=== PATIENT | female | born 1975 | race Caucasian/White ===

== ENCOUNTER 2016-05-22 17:52 | Inpatient (IN) ==
[2016-05-22] MEDS ORDERED: *HR* Dextrose 50 % in Water (Syg) 50 ML SYRINGE ONE (18:00)
[2016-05-22] MEDS ORDERED: *HR* Dextrose 50 % in Water (Syg) 50 ML SYRINGE IVP ONE (18:07)
--- NOTE | 2016-05-22 18:11 | Emergency Department Note ---
Disposition Clinical Impression: Hypoglycemia, Pneumonitis Altered mental status Qualifiers: Altered mental status type: unspecified Qualified Code(s): R41.82 - Altered mental status, unspecified Disposition: Admitted As Inpatient Condition: Good Time of Disposition: 19:27 Altered Mental Status HPI - General Chief Complaint: ED Altered Mental Status Stated Complaint: unresponsive Time Seen by Provider: 05/22/16 17:55 Source: EMS Mode of arrival: ambulatory Limitations: no limitations Nursing Notes Reviewed: Yes Vital Signs Reviewed: Yes - History of Present Illness HPI Narrative: 41-year-old female with history of diabetes, pernicious anemia, chronic kidney disease presents unresponsive from home with glucose that read "high" per EMS. EMS was unable to obtain access. Patient's states that she has been ill for the last few days and when he returned home from work he was unable to awaken her. He states that her illness included nausea without vomiting as well as diarrhea. She has not had much of an appetite over the last few days if her sugar has been running low. She has an insulin pump. She has not had any recent cough or cold symptoms, chest pain, fevers, rashes or edema. No recent antibiotic use. - Related Data Home Medications Medication Instructions Recorded Confirmed Rifaximin [Xifaxan] 550 mg PO TID 12/21/15 04/26/16 Alprazolam [Xanax 0.5 MG Tablet] 0.5 mg PO TID 05/22/16 05/22/16 Cyanocobalamin (B-12) [Vitamin B12] 1,000 mcg IM Q2W 05/22/16 Diltiazem CD (24hr) [Cardizem CD] 240 mg PO DAILY 05/22/16 Folic Acid mg PO DAILY 05/22/16 Hydrocodone/Acetaminophen [Kaleva 1 - 2 tab PO Q4-6H PRN 05/22/16 05/22/16 5-325 Tablet] Insulin LISPRO [HumaLOG] 0 unit SQ AD PRN 05/22/16 05/22/16 Lipase/Protease/Amylase [Faviola Haile 3 each PO TIDWM 05/22/16 6,000 Units Capsule] SUMAtriptan Succinate [Imitrex] 100 mg PO DAILY PRN 05/22/16 Previous Rx's Medication Instructions Recorded Amlodipine [Norvasc] 10 mg PO DAILY #30 tablet 12/24/15 CloNIDine HCl 0.3 mg PO TID #90 tablet 12/24/15 Ergocalciferol (VITAMIN D2) 50,000 unit PO QWEEK #12 capsule 12/24/15 [Drisdol (50,000 Unit)] Furosemide [Lasix] 20 mg PO BID tablet 12/24/15 HydrALAZINE 50 mg PO Q8HR #90 tablet 12/24/15 Levothyroxine [Synthroid] 100 mcg PO 0630 tablet 12/24/15 Allergies Allergy/AdvReac Type Severity Reaction Status Date / Time cephalexin [From Keflex] Allergy Hives Verified 03/19/16 11:11 ciprofloxacin [From Cipro] Allergy Hives Verified 03/19/16 11:11 levofloxacin [From Levaquin] Allergy Difficulty Verified 03/19/16 11:11 Breathing ofloxacin Allergy Rash Verified 03/19/16 11:11 penicillin V Allergy Hives Verified 03/19/16 11:11 sulfamethoxazole Allergy Hives Verified 03/19/16 11:11 [From Bactrim] trimethoprim [From Bactrim] Allergy Hives Verified 03/19/16 11:11 All systems ED: reviewed and negative except as stated. Past Medical History - Past Medical History Attestation: Yes The following information was validated with the patient. 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 mucous membranes moist - Neck Neck exam: Present: normal inspection, full ROM, trachea midline - Chest Chest inspection: Present: normal inspection, symmetric chest wall rise - Respiratory Initially poor respiratory effort and diffuse rhonchi. Cardiovascular Cardiovascular exam: Present: regular rate, normal rhythm, normal heart sounds - Abdominal Exam Abdominal exam: Present: soft, Non-Tender. Absent: tenderness, distention, guarding, rebound, rigidity - Extremities Exam Extremities exam: Present: normal inspection, full ROM - Back Exam Back exam: Present: normal inspection, full ROM. Absent: tenderness, CVA tenderness (R), CVA tenderness (L) - Neurological Exam Patient groans to painful stimulus. After dextrose and menstruation, patient is somnolent but arousable and answers questions although is somewhat confused. - Psychiatric Psychiatric exam: Present: normal affect, normal mood - Skin Diaphoresis and pallor - General Limitations: no limitations General appearance: in distress Course - Reevaluation(s) Reevaluation #1: Our accucheck read 40. Patient had right tibial IO placed by Dr. Oviedo for inability to obtain IV access. Insulin pump removed. The patient received IV dextrose through this as well as IM glucagon in the right deltoid after this, patient awakened. Her pulse ox was 82% on oxygen by nasal cannula so he placed her on a Ventimask. Time: 18:30 Reevaluation #2: Patient is stable and now answers questions appropriately. Anemia and renal dysfunction are stable. EKG is nonischemic. Chest x-ray shows pneumonitis. Hospitalist was paged. Time: 19:26 Reevaluation #3: Accepted by Dr. Johnson Time: 19:35 Vital Signs Temperature 98.8 F 05/22/16 17:54 Pulse Rate 90 05/22/16 17:54 Respiratory Rate 16 05/22/16 17:54 Blood Pressure 158/88 05/22/16 17:54 O2 Sat by Pulse Oximetry 85 L 05/22/16 17:54 Temperature 98.8 F 05/22/16 17:54 Pulse Rate 61 05/22/16 18:52 Respiratory Rate 18 05/22/16 18:52 Blood Pressure 135/89 05/22/16 18:52 O2 Sat by Pulse Oximetry 96 05/22/16 18:52 Oxygen Delivery Oxygen Delivery High Flow Nasal Cannula Altered Mental Status - Lab Data Result diagrams: 05/22/16 18:18 05/22/16 18:18 Lab Results 05/22/16 05/22/16 05/22/16 Range/Units 17:56 18:18 18:18 WBC 3.0 L (4.3-11.1) K/mcL RBC 2.44 L (3.82-4.97) M/mcL Hgb 8.0 L (11.5-15.4) g/dL Hct 22.9 L (35.3-44.9) % MCV 93.9 (83.0-100.0) fL MCH 32.8 (28.0-33.3) pg MCHC 34.9 (31.6-35.5) g/dL RDW 14.6 H (11.5-14.5) % Plt Count 103 L (140-400) K/mcL MPV 10.1 (9.4-12.4) fL Immature Gran % 0.3 (0-4) % Seg Neutrophils % 71.1 % Lymphocytes % 23.3 % Monocytes % 4.3 % Eosinophils % 0.7 % Basophils % 0.3 % Neutrophils # 2.1 (1.6-8.9) K/mcL Lymphocytes # 0.7 (0.6-4.6) K/mcL Monocytes # 0.1 (0.0-1.3) K/mcL Eosinophils # 0.0 (0.0-0.6) K/mcL Basophils # 0.0 (0.0-0.2) K/mcL VBG pH (7.32-7.42) pH Units VBG pCO2 (41-51) mmHg VBG pO2 (25-40) mmHg VBG HCO3 (21-27) mEq/L Sodium 135 L (136-145) mEq/L Potassium 3.5 (3.5-4.5) mEq/L Chloride 107 (98-109) mEq/L Carbon Dioxide 19 (19-29) mEq/L BUN 51 H (7-20) mg/dL Creatinine 2.12 H (0.57-1.11) mg/dL Est GFR ( Amer) 31 L (> 60) Est GFR (Non-Af Amer) 26 L (> 60) BUN/Creatinine Ratio 24 (6-26) Glucose 162 H (70-99) mg/dL POC Glucose 41 L* (58-89) Calculated Osmolality 297 (280-300) Calcium 6.9 L (8.6-10.8) mg/dL Serum , Qual (Negative) Urine Color (Yellow) Urine Clarity (Clear) Urine pH (5.0-8.0) pH Units Ur Specific [place] (1.010-1.025) Urine Protein (Neg-Trace) mg/dL Urine Glucose (UA) (Normal) mg/dL Urine Ketones (Negative) mg/dL Urine Blood (Negative) Urine Nitrite (Negative) Urine Bilirubin (Negative) Urine Urobilinogen (Normal) mg/dL Ur Leukocyte Esterase (Negative) Urine Microscopic RBC (0-3) per hpf Urine Microscopic WBC (0-3) per hpf Ur Squamous Epith Cells (None-Few) per lpf Urine Bacteria (None-Few) per hpf Hyaline Casts (None-Few) per lpf Ur Culture Indicated? (NO) 05/22/16 05/22/16 05/22/16 Range/Units 18:18 18:18 18:45 WBC (4.3-11.1) K/mcL RBC (3.82-4.97) M/mcL Hgb (11.5-15.4) g/dL Hct (35.3-44.9) % MCV (83.0-100.0) fL MCH (28.0-33.3) pg MCHC (31.6-35.5) g/dL RDW (11.5-14.5) % Plt Count (140-400) K/mcL MPV (9.4-12.4) fL Immature Gran % (0-4) % Seg Neutrophils % % Lymphocytes % % Monocytes % % Eosinophils % % Basophils % % Neutrophils # (1.6-8.9) K/mcL Lymphocytes # (0.6-4.6) K/mcL Monocytes # (0.0-1.3) K/mcL Eosinophils # (0.0-0.6) K/mcL Basophils # (0.0-0.2) K/mcL VBG pH 7.30 L (7.32-7.42) pH Units VBG pCO2 43 (41-51) mmHg VBG pO2 94 H (25-40) mmHg VBG HCO3 21.2 (21-27) mEq/L Sodium (136-145) mEq/L Potassium (3.5-4.5) mEq/L Chloride (98-109) mEq/L Carbon Dioxide (19-29) mEq/L BUN (7-20) mg/dL Creatinine (0.57-1.11) mg/dL Est GFR ( Amer) (> 60) Est GFR (Non-Af Amer) (> 60) BUN/Creatinine Ratio (6-26) Glucose (70-99) mg/dL POC Glucose (58-89) Calculated Osmolality (280-300) Calcium (8.6-10.8) mg/dL Serum , Qual Negative (Negative) Urine Color Yellow (Yellow) Urine Clarity Cloudy A (Clear) Urine pH 5.0 (5.0-8.0) pH Units Ur Specific [place] 1.010 (1.010-1.025) Urine Protein 100 H (Neg-Trace) mg/dL Urine Glucose (UA) Normal (Normal) mg/dL Urine Ketones Negative (Negative) mg/dL Urine Blood Negative (Negative) Urine Nitrite Negative (Negative) Urine Bilirubin Negative (Negative) Urine Urobilinogen Normal (Normal) mg/dL Ur Leukocyte Esterase Negative (Negative) Urine Microscopic RBC 0-3 (0-3) per hpf Urine Microscopic WBC 0-3 (0-3) per hpf Ur Squamous Epith Cells Many H (None-Few) per lpf Urine Bacteria None Seen (None-Few) per hpf Hyaline Casts None Seen (None-Few) per lpf Ur Culture Indicated? NO (NO) - Radiology Data Radiology results reviewed: Yes I reviewed the patient's radiology results. - EKG Data EKG attestation: Yes I reviewed and interpreted this EKG. EKG results narrative: Normal sinus rhythm at 69 with normal axis and prolonged QTc at 482. Normal ST segments. No change other than elongated QTc from 03/19/2016. Attestation Statement - Attestation Attestation: I examined this patient and my medical decision-making was reviewed with the [employer] OPERATOR HELPER/PA/Advanced Practice Nurse/Resident Physician. I agree with the documented findings, disposition and treatment plan as described except to the extent set forth below. Patient emergency department with altered mental status. Family called 911 because she was poorly responsive. Per EMS her blood sugar read high. On arrival here she is diaphoretic. Poorly responsive. Gurgling breath sounds. Rhonchi on lung exam. Plan. Bedside glucose was 41. Difficult time obtaining IV access. I was placed in the right tib-fib. She received IM glucagon prior to the IV being placed. She received D50 through the right eye O. Upon his arrival he states that the patient has a port. There was access and IO was pulled. Patient is hypoxic. Candy was suctioned from her airway. Satting 85% on 2 L. Likely aspirated. Patient will be admitted. Patient feeling better. Awake alert and appropriate. Still requiring O2 to keep her sats above 90%. Admitted for aspiration pneumonitis. IV hydration for her worsening chronic renal insufficiency. 35 minutes of critical care exclusive of separately billable procedures.
[2016-05-22 18:27] LABS: Basophils % 0.3 %; Eosinophils % 0.7 %; Hematocrit 22.9 % (35.3-44.9); Immature Granulocytes % 0.3 % (0-4); Lymphocytes # 0.7 K/mcL (0.6-4.6); Lymphocytes % 23.3 %; Mean Corpuscular HGB Conc 34.9 g/dL (31.6-35.5); Mean Corpuscular Hemoglobin 32.8 pg (28.0-33.3); Mean Corpuscular Volume 93.9 fL (83.0-100.0); Mean Platelet Volume 10.1 fL (9.4-12.4); Monocytes # 0.1 K/mcL (0.0-1.3); Monocytes % 4.3 %; Neutrophils # 2.1 K/mcL (1.6-8.9); Platelet Count 103 K/mcL (140-400); Red Blood Count 2.44 M/mcL (3.82-4.97); Red Cell Distribution Width 14.6 % (11.5-14.5); Segmented Neutrophils % 71.1 %
[2016-05-22 18:30] LABS: VBG HCO3 21.2 mEq/L (21-27); VBG PH 7.3 pH Units (7.32-7.42)
[2016-05-22 18:38] LABS: Calcium 6.9 mg/dL (8.6-10.8); Potassium 3.5 mEq/L (3.5-4.5)
[2016-05-22 18:57] LABS: Bilirubin,Urine Negative (Negative); Blood,Urine Negative (Negative); Clarity,Urine Cloudy (Clear); Color,Urine Yellow (Yellow); Glucose,Urine (UA) Normal (Normal); Ketones,Urine Negative (Negative); Leukocyte Esterase,Urine Negative (Negative); Nitrite,Urine Negative (Negative); Protein,Urine 100 mg/dL (Neg-Trace); Urobilinogen,Urine Normal (Normal)
[2016-05-22 19:00] LABS: Bacteria,Urine None Seen per hpf (None-Few); Hyaline Casts,Urine None Seen per lpf (None-Few); RBC,Urine 0-3 per hpf (0-3); Squamous Epithelial Cell,Urine Many per lpf (None-Few); WBC,Urine 0-3 per hpf (0-3)
[2016-05-22] MEDS ORDERED: 0.9 % Sodium Chloride 1,000 ML IV ONE (19:53)
[2016-05-22] MEDS ORDERED: Naloxone 0.4 MG/ML INJ IVP PRN (20:10)
[2016-05-22] MEDS ORDERED: *HR* Morphine 2 MG/ML SYRINGE IVP PRN (20:10)
[2016-05-22] MEDS ORDERED: Albuterol 2.5 MG/3 ML NEBULIZER IH PRN (20:10)
[2016-05-22] MEDS ORDERED: D5% in Water 1,000 ML IV PRN (20:10)
[2016-05-22] MEDS ORDERED: Acetaminophen 325 MG TABLET PO PRN (20:10)
[2016-05-22] MEDS ORDERED: Scopolamine Patch 1.5 MG PATCH.TD72 TD ONE (20:10)
[2016-05-22] MEDS ORDERED: Dextrose Gel 15 GM PO PRN ×2 (20:10)
[2016-05-22] MEDS ORDERED: Pantoprazole 40 MG VIAL IVP STA (20:10)
[2016-05-22] MEDS ORDERED: Benzonatate 100 MG CAPSULE PO PRN (20:10)
[2016-05-22] MEDS ORDERED: *HR* OxyCODONE Immed Rel 5 MG TABLET PO PRN (20:10)
[2016-05-22] MEDS ORDERED: Doxycycline 100 MG CAPSULE PO SCH (21:00)
[2016-05-22] MEDS ORDERED: Famotidine 20 MG TABLET PO SCH (21:00)
[2016-05-22] MEDS ORDERED: Insulin LISPRO 300 UNITS/3 ML VIAL SQ SCH (21:00)
[2016-05-22] MEDS: Ipratropium/Albuterol Neb 3 ML IH SCH (22:25)
[2016-05-22 22:29] LABS: Prothrombin Time 11.1 Seconds (9.4-12.1)
[2016-05-22 22:31] LABS: Activated Partial Thrombo Time 37.5 Seconds (26.0-36.0)
[2016-05-22 22:35] LABS: Ionized Calcium 0.97 mmol/L (1.15-1.35)
[2016-05-22 22:40] LABS: Magnesium 1.3 mg/dL (1.6-2.6)
[2016-05-22 22:41] LABS: Hemoglobin A1C 5.8 %
[2016-05-22 23:01] LABS: Thyroid Stimulating Hormone 0.491 mcIU/mL (0.350-4.840)
[2016-05-22] MEDS: cloNIDine HCl 0.1 MG TABLET PO SCH (23:04)
[2016-05-22] MEDS: ALPRAZolam 0.5 MG TABLET PO SCH (23:06)
[2016-05-22 23:16] LABS: Prolactin 38.66 ng/mL (5.18-26.53)
[2016-05-23] MEDS ORDERED: hydrALAZINE 25 MG TABLET PO SCH
[2016-05-23 01:44] LABS: Amphetamine Screen,Urine Negative ng/mL (Cutoff=1000); Barbiturate Screen,Urine Negative ng/mL (Cutoff=200); Benzodiazepines Screen,Urine Positive ng/mL (Cutoff=200); Cannabinoid Screen,Urine Negative ng/mL (Cutoff = 50); Cocaine Screen,Urine Negative ng/mL (Cutoff= 300); Opiate Screen,Urine Positive ng/mL (Cutoff=300); Phencyclidine Screen,Urine Negative ng/mL (Cutoff=25)
[2016-05-23] MEDS ORDERED: *HR* OxyCODONE Immed Rel 5 MG TABLET PO STA (01:57)
[2016-05-23] MEDS ORDERED: *HR* HYDROmorphone (PF) 1 MG/ML SYRINGE IVP PRN (01:58)
--- NOTE | 2016-05-23 02:02 | Internal Med History&Physical ---
Date of Encounter: 05/22/16 Time of Encounter: 21:00 Assessment and Plan (1) Episode of unresponsiveness Current visit: Yes Status: Acute . (2) Toxic metabolic encephalopathy Current visit: Yes Status: Acute . (3) Severe diabetic hypoglycemia Current visit: Yes Status: Acute . (4) Bilateral pneumonia Current visit: Yes Status: Acute . Qualifiers: Pneumonia type: due to unspecified organism Lung location: unspecified part of lung Qualified Code(s): J18.9 - Pneumonia, unspecified organism (5) Community acquired bacterial pneumonia Current visit: Yes Status: Acute . (6) Type I diabetes mellitus Current visit: Yes Status: Acute . Qualifiers: Diabetes mellitus complication status: with kidney complications Diabetes mellitus complication detail: with nephropathy Qualified Code(s): E10.21 - Type 1 diabetes mellitus with diabetic nephropathy (7) Altered mental status Current visit: Yes Status: Acute . Qualifiers: Altered mental status type: stupor Qualified Code(s): R40.1 - Stupor (8) Accelerated hypertension Current visit: Yes Status: Chronic . (9) CKD (chronic kidney disease), stage IV Current visit: Yes Status: Chronic . (10) H/O gastric bypass Current visit: Yes Status: Chronic . (11) Hypothyroidism Current visit: Yes Status: Chronic . Qualifiers: Hypothyroidism type: acquired Qualified Code(s): E03.9 - Hypothyroidism, unspecified (12) Iron deficiency Current visit: Yes Status: Chronic . (13) Nephrotic syndrome Current visit: Yes Status: Chronic . (14) Pancreatic insufficiency Current visit: Yes Status: Chronic . (15) Pancytopenia Current visit: Yes Status: Chronic . (16) Proteinuria Current visit: Yes Status: Chronic . Qualifiers: Proteinuria type: persistent Qualified Code(s): R80.1 - Persistent proteinuria, unspecified (17) Secondary hyperparathyroidism of renal origin Current visit: Yes Status: Chronic . (18) Vitamin B12 deficiency Current visit: Yes Status: Chronic . (19) Vitamin D deficiency Current visit: Yes Status: Chronic . Internal Medicine - H&P: HPI Chief complaint: Unresponsiveness Admitted From: Emergency Dept Plans for Post Hospital Care: Home History of present illness: Ms. 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 Patient is admitted to [facility] via the emergency department family called 911 when patient was found to be poorly responsive in the home setting. Glucometer initially read high. EMS. They were unable however to obtain an access for infusion therapy. reported that the patient had been ill for several days. When he returned home he was unable to awaken her. Her symptoms included nausea without vomiting diarrhea. She had a poor appetite over the last several days and her blood sugar trending's have been running a low. She has an insulin pump. There is no report of any upper respiratory complaints of cough or cold symptoms chest pain congestion fevers rashes or edema. Patient had not been recently on any antibiotic therapy. There had not been any recent changes in her prescribed medications. Following administration of intravenous D50 and intramuscular glucagon patient awakened and was alert and appropriately responsive. Initial pulse oximetry measurements are low at 82%. And he was suctioned from her airway. Hypoxia likely secondary to aspiration. Findings in the ED: Temperature 98.8 pulse 60-90 respirations 16-18 BP 135-158/ 89 O2 saturation 85-96% on nasal cannula/ventimask. WBC 3.0 hemoglobin 8.0 hematocrit 22.9. RDW 14.6. Platelets 103,000. Differential normal. Metabolic panel sodium 135 potassium 3.5. BUN 51 creatinine 2.12. GFR 26. [id number] glucose 41. Osmolality 297. Venous blood gas pH 7.3 PCO2 43 PO2 94 bicarbonate 21.2. Serum qualitative negative. Urinalysis large protein 3 RBC. WBC many epithelial cells. Portable chest x-ray nonspecific patchy left lower lobe opacity atelectasis versus pneumonia. Left-sided subcutaneous medical infusion port. Diaphragmaticcare.Noeffusionorpneumothorax. Preliminary impressions suggest acute toxic metabolic encephalopathy secondary to severe hypoglycemia. Unresponsiveness/ syncope potentially secondary to acute seizure as a consequence of significant metabolic and acid-base derangements. Presentation further complicated by acute hypoxic respiratory failure with radiographic findings suggesting multi-lobar opacities suggestive of aspiration pneumonitis. Pancytopenia is a chronic problem felt secondary to pernicious anemia/B12 deficiency plus Iron deficiency. Stage IV chronic kidney disease is present with modest electrolyte derangements. The patient presents at the risk for acute clinical decline and morbidity given this presenting chief complaint, findings and comorbidities. Workup and treatment will proceed comprehensively. Cumulative laboratory and radiographic data base was reviewed, considered and discussed. Pertinent ancillary medical records including ECW and PCI documentation was reviewed and considered. Given the patient's presenting concerns, past medical history, clinical findings and symptoms, she is admitted at this time will undergo further evaluation and disposition. Orders were written as per the computerized physician line ordering clinician system.......................................................................... .................... Consultative opinion and will be sought as clinical circumstances justify. Pain management needs will be addressed. Laboratory and radiographic data base will be updated as appropriate. Studies include: Cultures blood urine sputum, c diff toxin, cardiac injury panel, BNP, CPK, prolactin, metabolic and hematologic panel, magnesium, phosphorus, ionized calcium, thyroid panel, lipid profile, A1c, C-peptide, CRP, sed rate, respiratory infection profile, respiratory virus panel, PT/INR, APTT, Ddimer, UA , UDS, blood gas, lactic acid, serologies, etc. Precautions: Aspiration, fall, seizure, delirium protocol/surveillance initiated. Telemetry with continuous hemodynamic monitoring and pulse oximetry initiated.Orthostatic vital signs. Empiric antibody coverage: Intravenous Invanz and Clindamycin pending culture data. Special studies: CT chest, CT head, chest x-ray, telemetry, EKG. Pulmonary toilet: Incentive spirometry, aerosol bronchodilator, mucolytic, antitussive, supplemental oxygen. Corticosteroid therapy. CPAP/BiPAP supplemental oxygen delivery. Aerosol Mucomyst therapy. Fluid and electrolyte repletion efforts will proceed. Careful attention to fluid balance and renal recovery will be emphasized. Avoidance of nephrotoxic exposure and adverse drug drug interaction in the setting of impaired renal function will be monitored closely. Acute coronary syndrome protocol/surveillance initiated. Acute HOME [employer] injury protocol/surveillance initiated DVT and PUD prophylaxis initiated: PPI therapy, intermittent pneumatic cuffs. Subcutaneous heparin. Early ambulation will be encouraged. Immunization updates recommended. Influenza and pneumococcal vaccinations as part of ongoing preventative healthcare recommendations strongly recommended. Smoking cessation counseling briefly addressed. Patient is a nonsmoker. Advanced care directive discussion briefly addressed. Patient does not declare any healthcare restrictions at this time. Cardiovascular risk appraisal and cardiovascular risk reduction efforts will be emphasized. Physical /occupational therapy may be asked to evaluate patient's functional capacity and progress mobility if her circumstances justify. Sliding scale insulin coverage, ADA dietary restraint and schedule an as-needed basis fingerstick glucose assessments were initiated. Nutrition/diabetes education counseling may be considered as circumstances justify. Insulin pump therapy withheld pending stabilization of acute findings. Outpatient medication schedules will be revieweds, confirmed and facilitated as appropriate. Reconciliation of home treatments including adjustments, substitutions and reintroduction into the treatment regimen will address necessary maintenance therapies for chronic pre-existing medical conditions. Plan of care has been reviewed and discussed in detail with the patient. Questions addressed. Hospital course dictated by clinical findings, treatment response and potential consultative interventions. Patient is at risk for further acute clinical decline due to her presenting chief complaints and comorbid conditions. Condition is serious. Prognosis is cautiously optimistic. CODE STATUS is full. Past Med Surg Social Fam HX - Past Medical History Source: old records reviewed Medical history: arthritis, CHF, diabetes, GERD (History of gastric bypass for obesity. History of small bowel bacterial overgrowth with malabsorption. History of postcholecystectomy secretory diarrhea. Pancreatic insufficiency.), hypertension, kidney stones, renal disease (CKD IV. Nephrotic syndrome.), thyroid disease, other (Pernicious anemia. Iron deficiency. B12 deficiency.) Psychiatric history: anxiety, depression - Past Surgical History Surgical History: cholecystectomy, hysterectomy (Right salpingo-oophorectomy.), other (Gastric bypass for obesity.) - Social History Smoking Status: Never smoker Smokeless Tobacco Status: No Alcohol use: none Drug use: none Internal Medicine - H&P: Meds Rifaximin [Xifaxan] 550 mg PO TID 12/21/15 [History] Amlodipine [Norvasc] 10 mg PO DAILY #30 tablet 12/24/15 [Rx] CloNIDine HCl 0.3 mg PO TID #90 tablet 12/24/15 [Rx] Ergocalciferol (VITAMIN D2) [Drisdol (50,000 Unit)] 50,000 unit PO QWEEK #12 capsule 12/24/15 [Rx] Furosemide [Lasix] 20 mg PO BID tablet 12/24/15 [Rx] HydrALAZINE 50 mg PO Q8HR #90 tablet 12/24/15 [Rx] Levothyroxine [Synthroid] 100 mcg PO 0630 tablet 12/24/15 [Rx] Alprazolam [Xanax 0.5 MG Tablet] 0.5 mg PO TID 05/22/16 [History] Cyanocobalamin (B-12) [Vitamin B12] 1,000 mcg IM Q2W 05/22/16 [History] Diltiazem CD (24hr) [Cardizem CD] 240 mg PO DAILY 05/22/16 [History] Folic Acid mg PO DAILY 05/22/16 [History] Hydrocodone/Acetaminophen [Pet[place]key 5-325 Tablet] 1 - 2 tab PO Q4-6H PRN 05/22/16 [ History] Insulin LISPRO [HumaLOG] 0 unit SQ AD PRN 05/22/16 [History] Lipase/Protease/Amylase [Creon Dr 6,000 Units Capsule] 3 each PO TIDWM 05/22/16 [History] SUMAtriptan Succinate [Imitrex] 100 mg PO DAILY PRN 05/22/16 [History] Allergies cephalexin [From Keflex] Allergy (Verified 03/19/16 11:11) Hives patient states she can take benadryl with this ciprofloxacin [From Cipro] Allergy (Verified 03/19/16 11:11) Hives patient states she can take benadryl with this levofloxacin [From Levaquin] Allergy (Verified 03/19/16 11:11) Difficulty Breathing ofloxacin Allergy (Verified 03/19/16 11:11) Rash patient states she can take benadryl with this penicillin V Allergy (Verified 03/19/16 11:11) Hives patient states she can take benadryl with this sulfamethoxazole [From Bactrim] Allergy (Verified 03/19/16 11:11) Hives patient states she can take benadryl with this trimethoprim [From Bactrim] Allergy (Verified 03/19/16 11:11) Hives patient states she can take benadryl with this All Systems PM: A 10-system review of systems was performed and is negative for pertinent findings except as documented above in the HPI. - Constitutional Constitutional: as per HPI, no chills, no fever(s), no night sweats - EENT Eyes: as per HPI, no change in vision, no discharge, no pain, no photophobia Ears: as per HPI, no ear discharge, no ear pain, no tinnitus Nose, mouth and throat: as per HPI, no dysphagia, no nasal discharge, no neck pain, no sore throat - Cardiovascular Cardiovascular ROS IM: as per HPI, no chest pain, no diaphoresis, no dyspnea, no lightheadedness, no palpitations, no syncope - Respiratory Respiratory: as per HPI, no cough, no dyspnea, no wheezing, no excessive phlegm production - Gastrointestinal Gastrointestinal: as per HPI, no abdominal pain, no diarrhea, no hematemesis, no hematochezia, no melena, no nausea, no vomiting - Genitourinary Genitourinary: as per HPI, no change in urinary stream, no dysuria, no flank pain, no hematuria Menstruation: amenorrhea, post hysterectomy - Musculoskeletal Musculoskeletal ROS IM: as per HPI, no numbness, no tingling - Integumentary Integumentary IM: as per HPI, no rash, no unusual bruising - Neurological Neurological ROS: as per HPI, no confusion, no convulsions, no focal weakness, no numbness, no tingling, no tremor(s) - Psychiatric Psychiatric: as per HPI - Endocrine Endocrine IM: as per HPI, other - Hematologic/Lymphatic Hematologic/Lymphatic: as per HPI, no easy bruising - Allergic/Immunologic Allergic/Immunologic: as per HPI - Constitutional Vitals: Temp Pulse Resp BP Pulse Ox 97.9 F 63 15 197/98 100 05/22/16 21:46 05/22/16 21:46 05/22/16 21:46 05/22/16 21:46 05/22/16 21:46 General appearance: Present: cooperative, mild distress, A&O X 3, answers questions appropriately - Head Head exam: Present: atraumatic, normocephalic - Eye Eye exam: Present: EOMI, PERRL, conjuntiva pink, sclera anicteric Pupils: Present: normal accommodation, PERRL - ENT ENT exam: Present: mucous membranes moist, normal external ear exam, normal oropharynx - Neck Neck exam general surgery: Present: full ROM, supple, trachea midline. Absent: lymphadenopathy - Respiratory Respiratory exam: Present: decreased breath sounds, CTAB. Absent: accessory muscle use, rales, rhonchi, wheezes - Cardiovascular Cardiovascular exam: Present: distant heart sounds, RRR, +S1, +S2. Absent: diastolic murmur, gallop, rubs, systolic murmur - GI/Abdominal GI/Abdominal exam: Present: normal bowel sounds, soft, no peritoneal signs. Absent: distended, tenderness - Extremities Exam Extremities exam: Present: full ROM, warm, radial pulses palpable and symetrical. Absent: calf tenderness, cyanotic, pedal edema - Neurological Exam Neurological exam: Present: alert, CN II-XII intact, oriented X3, no focal deficits. Absent: pronater drift, facial droop, speech deficit - Psychiatric Psychiatric exam: Present: normal affect, normal mood - Skin Skin exam: Present: dry, intact, warm Internal Med - H&P Results - Labs CBC & Chem 7: 05/22/16 18:18 05/22/16 18:18 Labs: Cardiac Enzymes 05/22/16 Range/Units 22:05 Troponin I 0.02 (0-0.03) ng/mL - Impressions ITS Impressions Chest CT 05/22/16 20:10 IMPRESSION: 1. Diffuse bilateral nodular infiltrates. This likely represents multi lobar pneumonia rather than pulmonary edema. Follow-up to resolution is recommended. D/ / Sammy Hewitt MD / Sammy Hewitt MD Interpreting Provider: Sammy Hewitt MD Vital Signs Temp Pulse Resp BP Pulse Ox 05/22/16 21:46 97.9 F 63 15 197/98 100 05/22/16 21:08 18 190/103 05/22/16 18:52 61 18 135/89 96 05/22/16 18:26 65 18 138/77 94 L 05/22/16 17:54 98.8 F 90 16 158/88 85 L Intake and Output 05/22/16 05/22/16 05/23/16 15:59 23:59 07:59 Other: Weight 83.915 kg Blood Glucose* 174 Short CBC 05/22/16 Range/Units 18:18 WBC 3.0 L (4.3-11.1) K/mcL Hgb 8.0 L (11.5-15.4) g/dL Hct 22.9 L (35.3-44.9) % Plt Count 103 L (140-400) K/mcL Neutrophils # 2.1 (1.6-8.9) K/mcL BMP 05/22/16 Range/Units 18:18 Sodium 135 L (136-145) mEq/L Potassium 3.5 (3.5-4.5) mEq/L Chloride 107 (98-109) mEq/L Carbon Dioxide 19 (19-29) mEq/L BUN 51 H (7-20) mg/dL Creatinine 2.12 H (0.57-1.11) mg/dL Glucose 162 H (70-99) mg/dL Calcium 6.9 L (8.6-10.8) mg/dL Cardiac Enzymes 05/22/16 Range/Units 22:05 Troponin I 0.02 (0-0.03) ng/mL Urine 05/22/16 Range/Units 18:45 Urine Color Yellow (Yellow) Urine Clarity Cloudy A (Clear) Urine pH 5.0 (5.0-8.0) pH Units Ur Specific Leland 1.010 (1.010-1.025) Urine Protein 100 H (Neg-Trace) mg/dL Urine Glucose (UA) Normal (Normal) mg/dL Abnormal lab results WBC 3.0 K/mcL (4.3-11.1) L 05/22/16 18:18 RBC 2.44 M/mcL (3.82-4.97) L 05/22/16 18:18 Hgb 8.0 g/dL (11.5-15.4) L 05/22/16 18:18 Hct 22.9 % (35.3-44.9) L 05/22/16 18:18 RDW 14.6 % (11.5-14.5) H 05/22/16 18:18 Plt Count 103 K/mcL (140-400) L 05/22/16 18:18 APTT 37.5 Seconds (26.0-36.0) H 05/22/16 22:05 VBG pH 7.30 pH Units (7.32-7.42) L 05/22/16 18:18 VBG pO2 94 mmHg (25-40) H 05/22/16 18:18 Sodium 135 mEq/L (136-145) L 05/22/16 18:18 BUN 51 mg/dL (7-20) H 05/22/16 18:18 Creatinine 2.12 mg/dL (0.57-1.11) H 05/22/16 18:18 Est GFR ( Amer) 31 (> 60) L 05/22/16 18:18 Est GFR (Non-Af Amer) 26 (> 60) L 05/22/16 18:18 Glucose 162 mg/dL (70-99) H 05/22/16 18:18 POC Glucose 174 (58-89) H 05/22/16 22:47 Hemoglobin A1c 5.8 % (-5.6) H 05/22/16 22:05 Calcium 6.9 mg/dL (8.6-10.8) L 05/22/16 18:18 Ionized Calcium 0.97 mmol/L (1.15-1.35) L 05/22/16 22:05 Phosphorus 6.0 mg/dL (2.3-4.7) H 05/22/16 22:05 Magnesium 1.3 mg/dL (1.6-2.6) L 05/22/16 22:05 Ammonia 17 mcmol/L (18-72) L 05/22/16 22:05 Amylase 194 Units/L (25-125) H 05/22/16 22:05 Prolactin 38.66 ng/mL (5.18-26.53) H 05/22/16 22:05 Urine Clarity Cloudy (Clear) A 05/22/16 18:45 Urine Protein 100 mg/dL (Neg-Trace) H 05/22/16 18:45 Ur Squamous Epith Cells Many per lpf (None-Few) H 05/22/16 18:45 Urine Opiates Screen Positive ng/mL (Trlshh=954) H 05/23/16 01:15 U Benzodiazepines Scrn Positive ng/mL (Qytanq=056) H 05/23/16 01:15 05/22/16 18:18 VBG pH 7.30 L VBG pCO2 43 VBG pO2 94 H VBG HCO3 21.2 Allergies Allergy/AdvReac Type Severity Reaction Status Date / Time cephalexin [From Keflex] Allergy Hives Verified 03/19/16 11:11 ciprofloxacin [From Cipro] Allergy Hives Verified 03/19/16 11:11 levofloxacin [From Levaquin] Allergy Difficulty Verified 03/19/16 11:11 Breathing ofloxacin Allergy Rash Verified 03/19/16 11:11 penicillin V Allergy Hives Verified 03/19/16 11:11 sulfamethoxazole Allergy Hives Verified 03/19/16 11:11 [From Bactrim] trimethoprim [From Bactrim] Allergy Hives Verified 03/19/16 11:11 Laboratory Results WBC 3.0 K/mcL (4.3-11.1) L 05/22/16 18:18 RBC 2.44 M/mcL (3.82-4.97) L 05/22/16 18:18 Hgb 8.0 g/dL (11.5-15.4) L 05/22/16 18:18 Hct 22.9 % (35.3-44.9) L 05/22/16 18:18 MCV 93.9 fL (83.0-100.0) 05/22/16 18:18 MCH 32.8 pg (28.0-33.3) 05/22/16 18:18 MCHC 34.9 g/dL (31.6-35.5) 05/22/16 18:18 RDW 14.6 % (11.5-14.5) H 05/22/16 18:18 Plt Count 103 K/mcL (140-400) L 05/22/16 18:18 MPV 10.1 fL (9.4-12.4) 05/22/16 18:18 Immature Gran % 0.3 % (0-4) 05/22/16 18:18 Seg Neutrophils % 71.1 % 05/22/16 18:18 Lymphocytes % 23.3 % 05/22/16 18:18 Monocytes % 4.3 % 05/22/16 18:18 Eosinophils % 0.7 % 05/22/16 18:18 Basophils % 0.3 % 05/22/16 18:18 Neutrophils # 2.1 K/mcL (1.6-8.9) 05/22/16 18:18 Lymphocytes # 0.7 K/mcL (0.6-4.6) 05/22/16 18:18 Monocytes # 0.1 K/mcL (0.0-1.3) 05/22/16 18:18 Eosinophils # 0.0 K/mcL (0.0-0.6) 05/22/16 18:18 Basophils # 0.0 K/mcL (0.0-0.2) 05/22/16 18:18 PT 11.1 Seconds (9.4-12.1) 05/22/16 22:05 INR 1.0 05/22/16 22:05 APTT 37.5 Seconds (26.0-36.0) H 05/22/16 22:05 VBG pH 7.30 pH Units (7.32-7.42) L 05/22/16 18:18 VBG pCO2 43 mmHg (41-51) 05/22/16 18:18 VBG pO2 94 mmHg (25-40) H 05/22/16 18:18 VBG HCO3 21.2 mEq/L (21-27) 05/22/16 18:18 Sodium 135 mEq/L (136-145) L 05/22/16 18:18 Potassium 3.5 mEq/L (3.5-4.5) 05/22/16 18:18 Chloride 107 mEq/L (98-109) 05/22/16 18:18 Carbon Dioxide 19 mEq/L (19-29) 05/22/16 18:18 BUN 51 mg/dL (7-20) H 05/22/16 18:18 Creatinine 2.12 mg/dL (0.57-1.11) H 05/22/16 18:18 Est GFR ( Amer) 31 (> 60) L 05/22/16 18:18 Est GFR (Non-Af Amer) 26 (> 60) L 05/22/16 18:18 BUN/Creatinine Ratio 24 (6-26) 05/22/16 18:18 Glucose 162 mg/dL (70-99) H 05/22/16 18:18 POC Glucose 174 (58-89) H 05/22/16 22:47 Est Mean Plasma Glucose 120 mg/dl 05/22/16 22:05 Hemoglobin A1c 5.8 % (-5.6) H 05/22/16 22:05 Calculated Osmolality 297 (280-300) 05/22/16 18:18 Lactic Acid 0.6 mmol/L (0.5-2.2) 05/22/16 22:05 Calcium 6.9 mg/dL (8.6-10.8) L 05/22/16 18:18 Ionized Calcium 0.97 mmol/L (1.15-1.35) L 05/22/16 22:05 Phosphorus 6.0 mg/dL (2.3-4.7) H 05/22/16 22:05 Magnesium 1.3 mg/dL (1.6-2.6) L 05/22/16 22:05 Ammonia 17 mcmol/L (18-72) L 05/22/16 22:05 Creatine Kinase 59 Units/L (29-168) 05/22/16 22:05 Troponin I 0.02 ng/mL (0-0.03) 05/22/16 22:05 Amylase 194 Units/L (25-125) H 05/22/16 22:05 TSH 0.491 mcIU/mL (0.350-4.840) 05/22/16 22:05 Prolactin 38.66 ng/mL (5.18-26.53) H 05/22/16 22:05 Serum , Qual Negative (Negative) 05/22/16 18:18 Urine Color Yellow (Yellow) 05/22/16 18:45 Urine Clarity Cloudy (Clear) A 05/22/16 18:45 Urine pH 5.0 pH Units (5.0-8.0) 05/22/16 18:45 Ur Specific Leland 1.010 (1.010-1.025) 05/22/16 18:45 Urine Protein 100 mg/dL (Neg-Trace) H 05/22/16 18:45 Urine Glucose (UA) Normal mg/dL (Normal) 05/22/16 18:45 Urine Ketones Negative mg/dL (Negative) 05/22/16 18:45 Urine Blood Negative (Negative) 05/22/16 18:45 Urine Nitrite Negative (Negative) 05/22/16 18:45 Urine Bilirubin Negative (Negative) 05/22/16 18:45 Urine Urobilinogen Normal mg/dL (Normal) 05/22/16 18:45 Ur Leukocyte Esterase Negative (Negative) 05/22/16 18:45 Urine Microscopic RBC 0-3 per hpf (0-3) 05/22/16 18:45 Urine Microscopic WBC 0-3 per hpf (0-3) 05/22/16 18:45 Ur Squamous Epith Cells Many per lpf (None-Few) H 05/22/16 18:45 Urine Bacteria None Seen per hpf (None-Few) 05/22/16 18:45 Hyaline Casts None Seen per lpf (None-Few) 05/22/16 18:45 Ur Culture Indicated? NO (NO) 05/22/16 18:45 Urine Opiates Screen Positive ng/mL (Tvyhzf=886) H 05/23/16 01:15 Ur Barbiturates Screen Negative ng/mL (Ocwvzp=326) 05/23/16 01:15 Ur Phencyclidine Scrn Negative ng/mL (Cutoff=25) 05/23/16 01:15 Ur Amphetamines Screen Negative ng/mL (Vgvnno=0464) 05/23/16 01:15 U Benzodiazepines Scrn Positive ng/mL (Hrfrur=490) H 05/23/16 01:15 Urine Cocaine Screen Negative ng/mL (Cutoff= 300) 05/23/16 01:15 U Marijuana (THC) Screen Negative ng/mL (Cutoff = 50) 05/23/16 01:15 Impressions Chest X-Ray 05/22/16 18:06 IMPRESSION: Nonspecific mild patchy left lower lobe which may represent atelectasis or possible pneumonia. D/ / 05/22/2016 19:04:15 Cuong Garcia MD / ryan Interpreting Provider: Cuong Garcia MD Chest CT 05/22/16 20:10
[2016-05-23] MEDS: Ipratropium/Albuterol Neb 3 ML IH SCH ×4 (04:00→22:00)
[2016-05-23] MEDS ORDERED: 0.9 % Sodium Chloride 1,000 ML IVC STA (05:14)
[2016-05-23] MEDS ORDERED: Magnesium Sulfate 2 GM in D5% in Water 100 ML IVPB ONE (05:15)
[2016-05-23] MEDS ORDERED: Calcium Gluconate 2,000 MG in D5% in Water 100 ML IVPB ONE (05:15)
[2016-05-23 05:29] LABS: Hematocrit 23.9 % (35.3-44.9); Hemoglobin 7.8 g/dL (11.5-15.4); Immature Platelets 3.6 % (1.1-6.1); Mean Corpuscular HGB Conc 32.6 g/dL (31.6-35.5); Mean Corpuscular Hemoglobin 32.5 pg (28.0-33.3); Mean Corpuscular Volume 99.6 fL (83.0-100.0); Red Blood Count 2.4 M/mcL (3.82-4.97)
[2016-05-23] MEDS ORDERED: 0.9 % Sodium Chloride w KCl 40 MEQ/1,000 ML MLS IVC SCH ×2 (05:30→06:07)
[2016-05-23] MEDS: hydrALAZINE 25 MG TABLET PO SCH ×3 (05:41→23:55)
[2016-05-23] MEDS: Ondansetron 4 MG/2 ML VIAL IVP PRN ×2 (05:46→22:44)
[2016-05-23] MEDS ORDERED: Meropenem 500 MG in 0.9 % Sodium Chloride Mini Bag 100 ML IVPB SCH (06:00)
[2016-05-23] MEDS ORDERED: Insulin DETEMIR 100 UNIT/ML X5UNITS SQ SCH ×2 (06:00→21:00)
[2016-05-23 06:14] LABS: VBG HCO3 6.4 mEq/L (21-27)
[2016-05-23 06:19] LABS: VBG PH 7.07 pH Units (7.32-7.42)
[2016-05-23] MEDS ORDERED: Insulin Regular, Human 100 UNIT/ML IV ONE (06:35)
[2016-05-23] MEDS ORDERED: Insulin Regular, Human 100 UNIT/ML IV PRN ×2 (06:35)
[2016-05-23] MEDS ORDERED: D5% in 0.45% NACL 1,000 ML IVC PRN (06:35)
[2016-05-23] MEDS ORDERED: 0.45 % Sodium Chloride w/KCl 20 MEQ/1,000 ML MLS IVC SCH ×2 (06:45)
[2016-05-23] MEDS ORDERED: 0.9 % Sodium Chloride w KCl 20 MEQ/1,000 ML MLS IVC SCH ×4 (06:45→13:43)
[2016-05-23] MEDS ORDERED: 0.9 % Sodium Chloride 1,000 ML IV SCH (06:45)
[2016-05-23 07:15] LABS: Albumin 2.3 g/dL (3.5-5.0); Bilirubin,Total 0.5 mg/dL (0.2-1.2); Calcium 6.6 mg/dL (8.6-10.8); Chol/HDL Ratio 1.8 (0-4.9); Globulin 2.3 g/dL (2.4-3.5); Potassium 5.1 mEq/L (3.5-4.5); Total Protein 4.6 g/dL (6.0-8.3)
[2016-05-23] MEDS ORDERED: Insulin LISPRO 300 UNITS/3 ML VIAL SQ SCH ×3 (07:30→21:00)
--- NOTE | 2016-05-23 08:38 | Internal Med Progress Note ---
Date of Encounter: 05/23/16 Time of Encounter: 08:10 - Assessment and plan (1) DKA (diabetic ketoacidoses) Current Visit: Yes Status: Acute Assessment and plan: Likely exacerbated due to underlying infection. Patient has been transferred to step-down ICU for closer management. Insulin drip has been started per protocol along with aggressive fluid hydration. Repeat BMP continues to show significant acidosis, hyponatremia and worsening renal failure. Urine output noted to be only 100cc since am. Will give 1000cc NS bolus and start maintenance fluids with RL at 150cc/hour. Continue to monitor Q1hrly Accuchecks, Q4hrly BMP and electrolytes. Monitor vital signs and urine output closely. Will d/w Computer Meteorologist if no improvement. High risk condition, at risk for arrhythmias due to severe acid-base imbalance. Qualifiers: Diabetes mellitus type: type 1 Diabetes mellitus complication detail: without coma Qualified Code(s): E10.10 - Type 1 diabetes mellitus with ketoacidosis without coma (2) Bilateral pneumonia Current Visit: Yes Status: Acute Assessment and plan: Chest XRay and CT chest show multiple bilateral opacities, concerning for aspiration and multifocal Pneumonia. Patient is noted to have Multiple antibiotic allergies; will continue IV Meropenem and Clindamycin and add Azithromycin. Qualifiers: Pneumonia type: due to unspecified organism Lung location: unspecified part of lung Qualified Code(s): J18.9 - Pneumonia, unspecified organism (3) Altered mental status Current Visit: Yes Status: Resolved Assessment and plan: improved now. Likely was a result of metabolic encephalopathy due to DKA. Qualifiers: Altered mental status type: stupor Qualified Code(s): R40.1 - Stupor (4) Type I diabetes mellitus Current Visit: Yes Status: Chronic Qualifiers: Diabetes mellitus complication status: with kidney complications Diabetes mellitus complication detail: with nephropathy Qualified Code(s): E10.21 - Type 1 diabetes mellitus with diabetic nephropathy (5) CKD (chronic kidney disease), stage IV Current Visit: Yes Status: Chronic Assessment and plan: Serum creatinine currently noted to be worsening due to dehydration and DKA. Continue IV hydration and monitor urine output and serum creatinine; dose antibiotics per current GFR; (6) Hypothyroidism Current Visit: Yes Status: Chronic Qualifiers: Hypothyroidism type: unspecified Qualified Code(s): E03.9 - Hypothyroidism , unspecified (7) Iron deficiency Current Visit: Yes Status: Chronic (8) Vitamin B12 deficiency Current Visit: Yes Status: Chronic - Subjective Interval history: Reports severe diffuse muscle cramping and abdominal cramps; feels weak and tired; had productive cough and fever at home, along with diarrhea. - Constitutional Vitals: Temp Pulse Resp BP Pulse Ox 98.0 F 89 18 100/60 97 05/23/16 04:02 05/23/16 04:02 05/23/16 04:03 05/23/16 04:02 05/23/16 04:03 General appearance: Present: mild distress, A&O X 3, answers questions appropriately - Head Head exam: Present: atraumatic, normocephalic - Neck Neck exam general surgery: Present: supple, trachea midline. Absent: lymphadenopathy - Respiratory Respiratory exam: Present: CTAB. Absent: accessory muscle use, rales, rhonchi, wheezes - Cardiovascular Cardiovascular exam: Present: RRR, +S1, +S2, tachycardia. Absent: diastolic murmur, gallop, rubs, systolic murmur - GI/Abdominal GI/Abdominal exam: Present: normal bowel sounds, soft (diffusely tender, no guarding/rigidity), no peritoneal signs. Absent: distended, tenderness - Extremities Exam Extremities exam: Present: full ROM, pedal edema (trace), warm, radial pulses palpable and symetrical. Absent: calf tenderness, cyanotic - Neurological Exam Neurological exam: Present: CN II-XII intact, oriented X3, no focal deficits. Absent: pronater drift, facial droop, speech deficit - Skin Skin exam: Present: dry, intact Internal Medicine: Result - Labs CBC & Chem 7: 05/23/16 05:00 05/23/16 12:49 Labs: Short CBC 05/23/16 Range/Units 05:00 WBC 6.9 D (4.3-11.1) K/mcL Hgb 7.8 L (11.5-15.4) g/dL Hct 23.9 L (35.3-44.9) % Plt Count 135 L (140-400) K/mcL BMP 05/23/16 05:00 Sodium 125 L D Potassium 5.1 H D Chloride 99 Carbon Dioxide 8 L* BUN 55 H Creatinine 2.36 H Glucose 595 H* Calcium 6.6 L Cardiac Enzymes 05/22/16 05/23/16 Range/Units 22:05 03:45 Troponin I 0.02 0.01 (0-0.03) ng/mL Liver Function 05/23/16 Range/Units 05:00 Total Bilirubin 0.5 (0.2-1.2) mg/dL AST 20 (5-34) Units/L ALT 25 (0-55) Units/L Alkaline Phosphatase 74 (38-126) Units/L Albumin 2.3 L (3.5-5.0) g/dL - ABG Interpretation ABG results: PT/INR, D-dimer PT 11.1 Seconds (9.4-12.1) 05/22/16 22:05 - Impressions Impressions Chest CT 05/22/16 20:10 IMPRESSION: 1. Diffuse bilateral nodular infiltrates. This likely represents multi lobar pneumonia rather than pulmonary edema. Follow-up to resolution is recommended. D/ / Sammy Hewitt MD / Sammy Hewitt MD Interpreting Provider: Sammy Hewitt MD Consult Discharge Plan - Plan Referrals: Marko Hylton Jr, MD [Primary Care Provider] - (SENTWEB REQUEST ON 05-23-16 @ [id number] ) NO,PCP [Non-Partnered Physician] -
[2016-05-23 08:40] LABS: VBG HCO3 3.9 mEq/L (21-27)
[2016-05-23 08:53] LABS: Magnesium 1.7 mg/dL (1.6-2.6); Phosphorous 8.1 mg/dL (2.3-4.7)
[2016-05-23] MEDS ORDERED: amLODIPine 5 MG TABLET PO SCH (09:00)
[2016-05-23] MEDS ORDERED: Insulin Human Regular 100 UNIT in 0.9 % Sodium Chloride 100 ML IVC SCH (09:00)
[2016-05-23] MEDS ORDERED: Diltiazem CD (24hr) 240 MG CAPSULE PO SCH (09:00)
[2016-05-23] MEDS: *HR* Morphine 2 MG/ML SYRINGE IVP PRN ×2 (09:09→13:06)
[2016-05-23] MEDS: Insulin Human Regular 100 UNIT in 0.9 % Sodium Chloride 100 ML IVC SCH (09:11)
[2016-05-23] MEDS: cloNIDine HCl 0.1 MG TABLET PO SCH ×3 (09:19→23:54)
[2016-05-23] MEDS: amLODIPine 5 MG TABLET PO SCH ×2 (09:19→23:55)
[2016-05-23] MEDS: ALPRAZolam 0.5 MG TABLET PO SCH ×3 (09:20→23:55)
[2016-05-23] MEDS: Famotidine 20 MG TABLET PO SCH (09:20)
--- NOTE | 2016-05-23 09:53 | Electrocardiograph Report ---
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
[2016-05-23] MEDS: *HR* OxyCODONE Immed Rel 5 MG TABLET PO PRN ×3 (10:38→23:32)
[2016-05-23] MEDS: Azithromycin 500 MG in D5% in Water 250 ML IVPB SCH (11:13)
[2016-05-23] MEDS: Clindamycin 600 MG/50 ML 600 MG/50 ML IV.SOLN IVPB SCH ×3 (11:18→23:34)
[2016-05-23 13:05] LABS: Bilirubin,Urine Moderate (Negative); Blood,Urine Negative (Negative); Clarity,Urine Turbid (Clear); Color,Urine Dark Yellow (Yellow); Glucose,Urine (UA) 250 mg/dL (Normal); Ketones,Urine Trace mg/dL (Negative); Leukocyte Esterase,Urine Negative (Negative); Nitrite,Urine Negative (Negative); Protein,Urine >=300 mg/dL (Neg-Trace); Specific Gravity,Urine 1.026 (1.010-1.025); Urobilinogen,Urine Normal (Normal)
[2016-05-23 13:06] LABS: Calcium 6.3 mg/dL (8.6-10.8); Magnesium 1.6 mg/dL (1.6-2.6); Potassium 5.1 mEq/L (3.5-4.5)
[2016-05-23] MEDS ORDERED: 0.9 % Sodium Chloride 1,000 ML IV ONE (13:42)
[2016-05-23] MEDS ORDERED: Ringers Solution, Lactated 1,000 ML IVC SCH (14:00)
[2016-05-23] MEDS: D5% in 0.45% NACL w KCl 20 MEQ/1,000 ML MLS IVC PRN ×2 (16:54→20:55)
[2016-05-23 17:34] LABS: Calcium 6.3 mg/dL (8.6-10.8); Potassium 4.8 mEq/L (3.5-4.5)
[2016-05-23] MEDS: Meropenem 500 MG in 0.9 % Sodium Chloride Mini Bag 100 ML IVPB SCH (18:03)
[2016-05-23] MEDS: *HR* Heparin 5,000 UNIT/ML VIAL SQ SCH (18:05)
[2016-05-23 21:42] LABS: VBG HCO3 15.3 mEq/L (21-27); VBG PH 7.25 pH Units (7.32-7.42)
[2016-05-23 21:52] LABS: Calcium 6.7 mg/dL (8.6-10.8); Potassium 5.1 mEq/L (3.5-4.5)
[2016-05-24] MEDS: D5% in 0.45% NACL w KCl 20 MEQ/1,000 ML MLS IVC SCH ×2 (00:55→14:19)
[2016-05-24 02:57] LABS: VBG PH 7.23 pH Units (7.32-7.42)
[2016-05-24 03:02] LABS: Basophils % 0.2 %; Hemoglobin 6.4 g/dL (11.5-15.4); Immature Granulocytes % 0.4 % (0-4); Immature Platelets 3.9 % (1.1-6.1); Lymphocytes # 0.5 K/mcL (0.6-4.6); Lymphocytes % 9.4 %; Mean Corpuscular HGB Conc 33.7 g/dL (31.6-35.5); Mean Corpuscular Hemoglobin 32.8 pg (28.0-33.3); Mean Corpuscular Volume 97.4 fL (83.0-100.0); Mean Platelet Volume 10.5 fL (9.4-12.4); Monocytes # 0.4 K/mcL (0.0-1.3); Monocytes % 6.8 %; Platelet Count 100 K/mcL (140-400); Red Blood Count 1.95 M/mcL (3.82-4.97); Red Cell Distribution Width 15.6 % (11.5-14.5); Segmented Neutrophils % 83.2 %
[2016-05-24 03:03] LABS: Neutrophils # 4.2 K/mcL (1.6-8.9)
[2016-05-24 03:32] LABS: Calcium 6.4 mg/dL (8.6-10.8); Potassium 5.3 mEq/L (3.5-4.5)
[2016-05-24 03:40] LABS: Platelet Estimate Decreased (Normal)
[2016-05-24 03:43] LABS: Anisocytosis 1+ (Not Present)
[2016-05-24] MEDS: Insulin Human Regular 100 UNIT in 0.9 % Sodium Chloride 100 ML IVC SCH (03:49)
[2016-05-24] MEDS: Ipratropium/Albuterol Neb 3 ML IH SCH ×4 (04:54→23:49)
[2016-05-24] MEDS: *HR* OxyCODONE Immed Rel 5 MG TABLET PO PRN ×3 (05:37→18:24)
[2016-05-24] MEDS: *HR* Heparin 5,000 UNIT/ML VIAL SQ SCH ×2 (05:38→18:47)
[2016-05-24] MEDS: Meropenem 500 MG in 0.9 % Sodium Chloride Mini Bag 100 ML IVPB SCH ×2 (05:38→18:42)
[2016-05-24] MEDS: hydrALAZINE 25 MG TABLET PO SCH ×3 (05:48→21:38)
[2016-05-24 06:24] LABS: VBG HCO3 13.5 mEq/L (21-27); VBG PH 7.26 pH Units (7.32-7.42)
[2016-05-24 06:36] LABS: Calcium 6.4 mg/dL (8.6-10.8); Potassium 4.9 mEq/L (3.5-4.5)
[2016-05-24] MEDS: Clindamycin 600 MG/50 ML 600 MG/50 ML IV.SOLN IVPB SCH ×2 (08:52→18:14)
[2016-05-24] MEDS: amLODIPine 5 MG TABLET PO SCH ×2 (08:59→21:39)
[2016-05-24] MEDS: XIFAXAN 550 MG PO SCH ×3 (08:59→21:37)
[2016-05-24] MEDS: cloNIDine HCl 0.1 MG TABLET PO SCH ×3 (08:59→21:39)
[2016-05-24] MEDS: Famotidine 20 MG TABLET PO SCH (09:00)
[2016-05-24] MEDS: ALPRAZolam 0.5 MG TABLET PO SCH ×3 (09:03→21:37)
[2016-05-24] MEDS: Azithromycin 500 MG in D5% in Water 250 ML IVPB SCH (10:14)
[2016-05-24 10:30] LABS: VBG HCO3 13.4 mEq/L (21-27); VBG PH 7.23 pH Units (7.32-7.42)
[2016-05-24 10:41] LABS: Calcium 6.7 mg/dL (8.6-10.8); Magnesium 1.6 mg/dL (1.6-2.6); Phosphorous 7.2 mg/dL (2.3-4.7)
[2016-05-24] MEDS: *HR* Morphine 2 MG/ML SYRINGE IVP PRN (14:58)
[2016-05-24 15:23] LABS: Basophils % 0.2 %; Eosinophils % 0.7 %; Hematocrit 19.5 % (35.3-44.9); Hemoglobin 6.6 g/dL (11.5-15.4); Immature Granulocytes % 0.5 % (0-4); Lymphocytes % 12.9 %; Mean Corpuscular HGB Conc 33.8 g/dL (31.6-35.5); Mean Corpuscular Hemoglobin 33.2 pg (28.0-33.3); Red Blood Count 1.99 M/mcL (3.82-4.97)
[2016-05-24 15:25] LABS: Immature Platelets 2.9 % (1.1-6.1); Lymphocytes # 0.5 K/mcL (0.6-4.6); Mean Platelet Volume 9.7 fL (9.4-12.4); Monocytes # 0.3 K/mcL (0.0-1.3); Monocytes % 6.3 %; Neutrophils # 3.3 K/mcL (1.6-8.9); Red Cell Distribution Width 15.3 % (11.5-14.5); Segmented Neutrophils % 79.4 %
[2016-05-24 15:26] LABS: Platelet Count 95 K/mcL (140-400)
[2016-05-24 15:27] LABS: Calcium 7.3 mg/dL (8.6-10.8); Potassium 4.6 mEq/L (3.5-4.5)
[2016-05-24] MEDS: *HR* Dextrose 50 % in Water (Syg) 50 ML SYRINGE IVP PRN ×2 (15:29→16:43)
[2016-05-24] MEDS ORDERED: Dextrose Gel 15 GM PO PRN ×2 (15:35)
[2016-05-24] MEDS ORDERED: *HR* Dextrose 50 % in Water (Syg) 50 ML SYRINGE IVP PRN (15:35)
[2016-05-24] MEDS ORDERED: D5% in Water 1,000 ML IV PRN (15:35)
[2016-05-24 15:56] LABS: Platelet Estimate Decreased (Normal)
[2016-05-24] MEDS ORDERED: Insulin DETEMIR 100 UNIT/ML X5UNITS SQ ONE (15:56)
--- NOTE | 2016-05-24 16:20 | Internal Med Progress Note ---
Date of Encounter: 05/24/16 Time of Encounter: 13:30 - Assessment and plan (1) DKA (diabetic ketoacidoses) Current Visit: Yes Status: Acute Assessment and plan: Improved blood sugars, anion gap is currently closed. Patient continues to have low serum bicarbonate, but improved from admission. Lactic acid is noted to be within normal limits. Will start basal insulin along with sliding scale insulin and hold IV fluids and IV insulin drip at this time. Resume diabetic diet. Continue to monitor closely. Qualifiers: Diabetes mellitus type: type 1 Diabetes mellitus complication detail: without coma Qualified Code(s): E10.10 - Type 1 diabetes mellitus with ketoacidosis without coma (2) Bilateral pneumonia Current Visit: Yes Status: Acute Assessment and plan: Chest XRay and CT chest show multiple bilateral opacities, concerning for aspiration and multifocal Pneumonia. Patient is noted to have Multiple antibiotic allergies; will continue IV Meropenem and Clindamycin and Azithromycin-day 2. Improving clinically. Continue supportive care. Follow- up blood cultures. Qualifiers: Pneumonia type: due to unspecified organism Lung location: unspecified part of lung Qualified Code(s): J18.9 - Pneumonia, unspecified organism (3) Altered mental status Current Visit: Yes Status: Resolved Qualifiers: Altered mental status type: stupor Qualified Code(s): R40.1 - Stupor (4) Type I diabetes mellitus Current Visit: Yes Status: Chronic Assessment and plan: Hemoglobin A1c noted to be 5.8% suggestive of well-controlled diabetes at baseline. Patient likely had DKA due to underlying infection, diarrhea and dehydration. Qualifiers: Diabetes mellitus complication status: with kidney complications Diabetes mellitus complication detail: with nephropathy Qualified Code(s): E10.21 - Type 1 diabetes mellitus with diabetic nephropathy (5) CKD (chronic kidney disease), stage IV Current Visit: Yes Status: Chronic Assessment and plan: Serum creatinine currently stabilized around 3. Continue to monitor urine output and serum creatinine; dose antibiotics per current GFR; (6) Hypothyroidism Current Visit: Yes Status: Chronic Qualifiers: Hypothyroidism type: unspecified Qualified Code(s): E03.9 - Hypothyroidism , unspecified (7) Iron deficiency Current Visit: Yes Status: Chronic Assessment and plan: Patient noted to have acute on chronic anemia, being worked up as an outpatient for iron deficiency anemia. Hemoglobin today is less than 7, we will transfuse 2 units PRBC. No evidence of active bleeding. Continue to monitor hemoglobin closely. (8) Vitamin B12 deficiency Current Visit: Yes Status: Chronic - Subjective Interval history: Patient appears much better today, sitting up in chair; has aching muscle pains all over, improving weakness and resolved nausea and vomiting; no abdominal pain or diarrhea; - Constitutional Vitals: Temp Pulse Resp BP Pulse Ox 99.1 F 98 16 133/62 97 05/24/16 11:04 05/24/16 11:04 05/24/16 11:04 05/24/16 11:04 05/24/16 10:23 General appearance: Present: A&O X 3, obese, answers questions appropriately - Head Head exam: Present: atraumatic, normocephalic - Neck Neck exam general surgery: Present: supple, trachea midline. Absent: lymphadenopathy - Respiratory Respiratory exam: Present: CTAB. Absent: accessory muscle use, rales, rhonchi, wheezes - Cardiovascular Cardiovascular exam: Present: RRR, +S1, +S2. Absent: diastolic murmur, gallop, rubs, systolic murmur - GI/Abdominal GI/Abdominal exam: Present: normal bowel sounds, soft, no peritoneal signs. Absent: distended, tenderness - Extremities Exam Extremities exam: Present: pedal edema (Trace pedal edema bilaterally), warm, radial pulses palpable and symetrical. Absent: calf tenderness, cyanotic - Neurological Exam Neurological exam: Present: CN II-XII intact, oriented X3, no focal deficits. Absent: pronater drift, facial droop, speech deficit - Skin Skin exam: Present: dry, intact Internal Medicine: Result - Labs CBC & Chem 7: 05/24/16 15:12 05/24/16 15:00 Labs: Short CBC 05/24/16 05/24/16 Range/Units 02:40 15:12 WBC 5.1 4.1 L (4.3-11.1) K/mcL Hgb 6.4 L 6.6 L (11.5-15.4) g/dL Hct 19.0 L 19.5 L (35.3-44.9) % Plt Count 100 L 95 L (140-400) K/mcL Neutrophils # 4.2 3.3 (1.6-8.9) K/mcL BMP 05/23/16 05/23/16 05/24/16 16:50 21:30 02:40 Sodium 127 L 127 L 127 L Potassium 4.8 H 5.1 H 5.3 H Chloride 104 105 105 Carbon Dioxide 13 L 13 L 12 L BUN 55 H 56 H 57 H Creatinine 2.77 H 2.93 H 3.01 H Glucose 133 H 76 96 Calcium 6.3 L 6.7 L 6.4 L 05/24/16 05/24/16 05/24/16 05:55 10:15 15:00 Sodium 126 L 127 L 128 L Potassium 4.9 H 5.0 H 4.6 H Chloride 104 105 106 Carbon Dioxide 13 L 12 L 12 L BUN 56 H 57 H 56 H Creatinine 2.96 H 3.04 H 2.96 H Glucose 94 142 H 59 L Calcium 6.4 L 6.7 L 7.3 L - ABG Interpretation ABG results: PT/INR, D-dimer PT 11.1 Seconds (9.4-12.1) 05/22/16 22:05 - VTE Documentation of Mechanical Device: Intermittent pneumatic compression device Consult Discharge Plan - Plan Referrals: Vitaly Green MD [Partnered Physician] - 06/08/16 2:10 pm Marko Hylton Jr, MD [Primary Care Provider] - (SENTWE[facility] REQUEST ON 05-23-16 @ [id number] ) NO,PCP [Non-Partnered Physician] -
[2016-05-24] MEDS ORDERED: 0.9 % Sodium Chloride 250 ML ONE (18:31)
[2016-05-24] MEDS: Insulin LISPRO 300 UNITS/3 ML VIAL SQ SCH (18:45)
[2016-05-24] MEDS ORDERED: Insulin LISPRO 300 UNITS/3 ML VIAL SQ SCH (21:00)
[2016-05-25] MEDS: Clindamycin 600 MG/50 ML 600 MG/50 ML IV.SOLN IVPB SCH ×4 (00:14→23:50)
[2016-05-25] MEDS: *HR* OxyCODONE Immed Rel 5 MG TABLET PO PRN ×4 (00:15→18:35)
[2016-05-25] MEDS: Ipratropium/Albuterol Neb 3 ML IH SCH ×4 (03:18→22:54)
[2016-05-25 04:35] LABS: Immature Platelets 3.8 % (1.1-6.1); Red Cell Distribution Width 15.2 % (11.5-14.5)
[2016-05-25 04:46] LABS: Basophils % 0.4 %; Eosinophils % 1.8 %; Hematocrit 24.1 % (35.3-44.9); Immature Granulocytes % 0.4 % (0-4); Lymphocytes # 0.5 K/mcL (0.6-4.6); Lymphocytes % 22.5 %; Mean Corpuscular HGB Conc 33.2 g/dL (31.6-35.5); Mean Corpuscular Hemoglobin 31.6 pg (28.0-33.3); Mean Corpuscular Volume 95.3 fL (83.0-100.0); Mean Platelet Volume 10.4 fL (9.4-12.4); Monocytes # 0.2 K/mcL (0.0-1.3); Red Blood Count 2.53 M/mcL (3.82-4.97); Segmented Neutrophils % 67.9 %
[2016-05-25 04:47] LABS: Calcium 6.9 mg/dL (8.6-10.8); Magnesium 1.5 mg/dL (1.6-2.6); Phosphorous 7.5 mg/dL (2.3-4.7); Potassium 5.2 mEq/L (3.5-4.5)
[2016-05-25 04:59] LABS: Neutrophils # 1.6 K/mcL (1.6-8.9); Platelet Count 71 K/mcL (140-400)
[2016-05-25 05:01] LABS: Hypochromasia Present (Not Present); Platelet Estimate Decreased (Normal)
[2016-05-25] MEDS: hydrALAZINE 25 MG TABLET PO SCH ×3 (05:59→21:05)
[2016-05-25] MEDS ORDERED: *HR* Heparin 5,000 UNIT/ML VIAL SQ SCH (06:00)
[2016-05-25] MEDS ORDERED: Ipratropium/Albuterol Neb 3 ML IH SCH (06:00)
[2016-05-25] MEDS: Meropenem 500 MG in 0.9 % Sodium Chloride Mini Bag 100 ML IVPB SCH (06:02)
[2016-05-25] MEDS: Ondansetron 4 MG/2 ML VIAL IVP PRN ×3 (06:05→18:35)
[2016-05-25] MEDS: Famotidine 20 MG TABLET PO SCH (08:01)
[2016-05-25] MEDS: ALPRAZolam 0.5 MG TABLET PO SCH ×3 (08:01→21:04)
[2016-05-25] MEDS: amLODIPine 5 MG TABLET PO SCH ×2 (08:02→21:05)
[2016-05-25] MEDS: Azithromycin 500 MG in D5% in Water 250 ML IVPB SCH (08:02)
[2016-05-25] MEDS: Insulin LISPRO 300 UNITS/3 ML VIAL SQ SCH ×4 (08:03→21:02)
[2016-05-25] MEDS: *HR* Promethazine 25 MG/ML VIAL IVP PRN (08:06)
[2016-05-25] MEDS: XIFAXAN 550 MG PO SCH ×3 (08:06→21:57)
[2016-05-25] MEDS: cloNIDine HCl 0.1 MG TABLET PO SCH ×3 (08:06→21:04)
[2016-05-25] MEDS ORDERED: Magnesium Sulfate 2 GM in D5% in Water 100 ML IVPB ONE (13:07)
[2016-05-25] MEDS: *HR* Morphine 2 MG/ML SYRINGE IVP PRN ×2 (14:40→22:04)
--- NOTE | 2016-05-25 15:08 | Internal Med Progress Note ---
Date of Encounter: 05/25/16 Time of Encounter: 14:57 - Assessment and plan (1) DKA (diabetic ketoacidoses) Current Visit: Yes Status: Acute Assessment and plan: Resolved DKA. Improving acidosis. Blood sugars noted to be fluctuating with episodes of hypoglycemia and hyperglycemia; received only one dose of Levemir yesterday, on sliding scale; DM educator f/up to check patient's insulin pump dosing and possibly restart her pump; Continue diabetic diet. Continue to monitor closely. Qualifiers: Diabetes mellitus type: type 1 Diabetes mellitus complication detail: without coma Qualified Code(s): E10.10 - Type 1 diabetes mellitus with ketoacidosis without coma (2) Bilateral pneumonia Current Visit: Yes Status: Acute Assessment and plan: Chest XRay and CT chest show multiple bilateral opacities, concerning for aspiration and multifocal Pneumonia. Patient is noted to have Multiple antibiotic allergies; blood cultures so far negative. will continue Clindamycin and Azithromycin-day 3 and change Meropenem to Aztreonam. Improving clinically. Continue supportive care. Qualifiers: Pneumonia type: due to unspecified organism Lung location: unspecified part of lung Qualified Code(s): J18.9 - Pneumonia, unspecified organism (3) Altered mental status Current Visit: Yes Status: Resolved Qualifiers: Altered mental status type: stupor Qualified Code(s): R40.1 - Stupor (4) Type I diabetes mellitus Current Visit: Yes Status: Chronic Assessment and plan: Hemoglobin A1c noted to be 5.8% suggestive of well-controlled diabetes at baseline, but it could be false-negative due to underlying anemia. Patient likely had DKA due to underlying infection, diarrhea and dehydration. Qualifiers: Diabetes mellitus complication status: with kidney complications Diabetes mellitus complication detail: with nephropathy Qualified Code(s): E10.21 - Type 1 diabetes mellitus with diabetic nephropathy (5) CKD (chronic kidney disease), stage IV Current Visit: Yes Status: Chronic Assessment and plan: Serum creatinine currently stabilized around 3. Continue to monitor urine output and serum creatinine; dose antibiotics per current GFR; (6) Hypothyroidism Current Visit: Yes Status: Chronic Qualifiers: Hypothyroidism type: unspecified Qualified Code(s): E03.9 - Hypothyroidism , unspecified (7) Iron deficiency Current Visit: Yes Status: Chronic Assessment and plan: Patient noted to have acute on chronic anemia, being worked up as an outpatient for iron deficiency anemia. Hemoglobin improved with transfusion of 2units PRBC. No evidence of active bleeding. Continue to monitor hemoglobin closely. (8) Vitamin B12 deficiency Current Visit: Yes Status: Chronic (9) Hyponatremia Current Visit: Yes Status: Acute Assessment and plan: improving; likely due to DKA and IV fluid hydration with hypotonic fluids; improving with fluid restriction; - Subjective Interval history: Feels better, improving body and muscle pains; no nausea, vomiting, diarrhea, abdominal pain; able to walk to the restroom without assistance. Had an episode of confusion and delirium earlier but feels well now. - Constitutional Vitals: Temp Pulse Resp BP Pulse Ox 98.1 F 90 16 149/85 97 05/25/16 11:32 05/25/16 14:30 05/25/16 11:32 05/25/16 14:30 05/25/16 14:30 General appearance: Present: A&O X 3, obese, answers questions appropriately - Respiratory Respiratory exam: Present: CTAB. Absent: accessory muscle use, rales, rhonchi, wheezes - Cardiovascular Cardiovascular exam: Present: RRR, +S1, +S2. Absent: diastolic murmur, gallop, rubs, systolic murmur - GI/Abdominal GI/Abdominal exam: Present: normal bowel sounds, soft, no peritoneal signs. Absent: distended, tenderness - Extremities Exam Extremities exam: Present: full ROM, warm, radial pulses palpable and symetrical. Absent: calf tenderness, cyanotic, pedal edema - Neurological Exam Neurological exam: Present: CN II-XII intact, oriented X3, no focal deficits. Absent: pronater drift, facial droop, speech deficit Internal Medicine: Result - Labs CBC & Chem 7: 05/25/16 04:14 05/25/16 04:14 Labs: Short CBC 05/24/16 05/25/16 Range/Units 15:12 04:14 WBC 4.1 L 2.3 L (4.3-11.1) K/mcL Hgb 6.6 L 8.0 L (11.5-15.4) g/dL Hct 19.5 L 24.1 L (35.3-44.9) % Plt Count 95 L 71 L (140-400) K/mcL Neutrophils # 3.3 1.6 (1.6-8.9) K/mcL BMP 05/24/16 05/25/16 15:00 04:14 Sodium 128 L 131 L Potassium 4.6 H 5.2 H Chloride 106 108 Carbon Dioxide 12 L 14 L BUN 56 H 55 H Creatinine 2.96 H 2.73 H Glucose 59 L 85 Calcium 7.3 L 6.9 L - ABG Interpretation ABG results: PT/INR, D-dimer PT 11.1 Seconds (9.4-12.1) 05/22/16 22:05 - VTE Documentation of Mechanical Device: Intermittent pneumatic compression device Consult Discharge Plan - Plan Referrals: Vitaly Green MD [Partnered Physician] - 06/08/16 2:10 pm Marko Hylton Jr, MD [Primary Care Provider] - 06/01/16 2:30 pm () NO,PCP [Non-Partnered Physician] -
--- NOTE | 2016-05-25 15:15 | Electrocardiograph Report ---
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
[2016-05-25] MEDS: Aztreonam 1,000 MG in D5% in Water (Mini-Bag+) 100 ML IVPB SCH (19:02)
[2016-05-25] MEDS: Insulin DETEMIR 100 UNIT/ML X5UNITS SQ SCH ×2 (19:38→21:03)
[2016-05-26] MEDS: *HR* Morphine 2 MG/ML SYRINGE IVP PRN ×2 (02:55→08:49)
[2016-05-26] MEDS: Ondansetron 4 MG/2 ML VIAL IVP PRN ×2 (02:55→13:32)
[2016-05-26 03:27] LABS: Basophils % 0.5 %; Mean Corpuscular Volume 97.2 fL (83.0-100.0); Red Cell Distribution Width 15.5 % (11.5-14.5)
[2016-05-26 03:29] LABS: Eosinophils % 1.5 %; Hematocrit 24.6 % (35.3-44.9); Immature Platelets 3.9 % (1.1-6.1); Lymphocytes # 0.5 K/mcL (0.6-4.6); Lymphocytes % 25.1 %; Mean Corpuscular HGB Conc 32.5 g/dL (31.6-35.5); Mean Corpuscular Hemoglobin 31.6 pg (28.0-33.3); Mean Platelet Volume 10.5 fL (9.4-12.4); Monocytes # 0.2 K/mcL (0.0-1.3); Monocytes % 7.5 %; Neutrophils # 1.3 K/mcL (1.6-8.9); Red Blood Count 2.53 M/mcL (3.82-4.97); Segmented Neutrophils % 65.4 %
[2016-05-26 04:12] LABS: Platelet Count 78 K/mcL (140-400)
[2016-05-26 04:14] LABS: Anisocytosis 1+ (Not Present); Macrocytosis Present (Not Present); Platelet Estimate Decreased (Normal)
[2016-05-26] MEDS: Ipratropium/Albuterol Neb 3 ML IH SCH ×4 (04:25→21:20)
[2016-05-26] MEDS: *HR* OxyCODONE Immed Rel 5 MG TABLET PO PRN ×2 (06:09→13:26)
[2016-05-26] MEDS: Aztreonam 1,000 MG in D5% in Water (Mini-Bag+) 100 ML IVPB SCH ×2 (06:10→17:04)
[2016-05-26] MEDS: hydrALAZINE 25 MG TABLET PO SCH ×3 (06:10→21:03)
[2016-05-26] MEDS: Azithromycin 500 MG in D5% in Water 250 ML IVPB SCH (08:46)
[2016-05-26] MEDS: ALPRAZolam 0.5 MG TABLET PO SCH ×3 (08:55→21:04)
[2016-05-26] MEDS: amLODIPine 5 MG TABLET PO SCH ×2 (08:55→21:02)
[2016-05-26] MEDS: Famotidine 20 MG TABLET PO SCH (08:55)
[2016-05-26] MEDS: cloNIDine HCl 0.1 MG TABLET PO SCH ×3 (08:55→21:02)
[2016-05-26] MEDS: Insulin LISPRO 300 UNITS/3 ML VIAL SQ SCH ×4 (08:56→21:05)
[2016-05-26] MEDS: Clindamycin 600 MG/50 ML 600 MG/50 ML IV.SOLN IVPB SCH ×2 (08:56→17:03)
[2016-05-26] MEDS: XIFAXAN 550 MG PO SCH ×3 (08:57→21:03)
[2016-05-26] MEDS: Insulin DETEMIR 100 UNIT/ML X5UNITS SQ SCH ×2 (08:58→21:04)
[2016-05-26 15:34] LABS: Calcium 6.7 mg/dL (8.6-10.8); Potassium 4.9 mEq/L (3.5-4.5)
--- NOTE | 2016-05-26 16:29 | Internal Med Progress Note ---
Date of Encounter: 05/26/16 Time of Encounter: 14:00 - Assessment and plan (1) Metabolic acidosis with normal anion gap and bicarbonate losses Current Visit: Yes Status: Acute Assessment and plan: Patient continues to have persistent low serum bicarbonate with normal anion gap although her DKA has resolved. This could be due to diarrhea and underlying chronic kidney disease. Nephrology consult. Patient follows with GI as outpatient for diarrhea and has been started on Xifaxan and pancrelipase for small bowel bacterial overgrowth; (2) DKA (diabetic ketoacidoses) Current Visit: Yes Status: Acute Assessment and plan: Resolved DKA. Persistent metabolic acidosis. Blood sugars noted to be much improved today on basal bolus insulin regimen. supervisor tank storage notes reviewed. Plan to discharge patient on prescriptions for basal bolus insulin regimen with injections until she can follow with endocrinology and have her insulin pump reevaluated. Continue Accu-Chek blood glucose monitoring. Diabetic diet. Qualifiers: Diabetes mellitus type: type 1 Diabetes mellitus complication detail: without coma Qualified Code(s): E10.10 - Type 1 diabetes mellitus with ketoacidosis without coma (3) Bilateral pneumonia Current Visit: Yes Status: Acute Assessment and plan: Improving clinically. No fever, leukocytosis, dyspnea and does not require supplemental oxygen. Antibiotic allergies reviewed with patient, reports that they are not true allergies and she does well when she takes them with Benadryl. blood cultures so far negative. will continue Clindamycin and Azithromycin and add Rocephin along with Benadryl. Continue supportive care. Qualifiers: Pneumonia type: due to unspecified organism Lung location: unspecified part of lung Qualified Code(s): J18.9 - Pneumonia, unspecified organism (4) Altered mental status Current Visit: Yes Status: Resolved Qualifiers: Altered mental status type: stupor Qualified Code(s): R40.1 - Stupor (5) Type I diabetes mellitus Current Visit: Yes Status: Chronic Qualifiers: Diabetes mellitus complication status: with kidney complications Diabetes mellitus complication detail: with nephropathy Qualified Code(s): E10.21 - Type 1 diabetes mellitus with diabetic nephropathy (6) CKD (chronic kidney disease), stage IV Current Visit: Yes Status: Chronic Assessment and plan: Serum creatinine currently stabilized around 3. Continue to monitor urine output and serum creatinine; dose antibiotics per current GFR; (7) Hypothyroidism Current Visit: Yes Status: Chronic Qualifiers: Hypothyroidism type: unspecified Qualified Code(s): E03.9 - Hypothyroidism , unspecified (8) Iron deficiency Current Visit: Yes Status: Chronic Assessment and plan: Patient noted to have acute on chronic anemia, being worked up as an outpatient for iron deficiency anemia. Hemoglobin improved with transfusion of 2units PRBC. No evidence of active bleeding. Continue to monitor hemoglobin closely. (9) Vitamin B12 deficiency Current Visit: Yes Status: Chronic (10) Hyponatremia Current Visit: Yes Status: Acute Assessment and plan: Stable. likely due to DKA and IV fluid hydration with hypotonic fluids; improving with fluid restriction; nephrology consult. - Subjective Interval history: Reports 4-5 loose bowel movements today associated with nausea. No abdominal pain, shortness of breath. Continues to have some myalgia and generalized weakness but feels improved since admission. - Constitutional Vitals: Temp Pulse Resp BP Pulse Ox 97.7 F 78 18 110/74 97 05/26/16 10:45 05/26/16 10:45 05/26/16 16:15 05/26/16 10:45 05/26/16 16:15 General appearance: Present: A&O X 3, obese, answers questions appropriately - Respiratory Respiratory exam: Present: CTAB. Absent: accessory muscle use, rales, rhonchi, wheezes - Cardiovascular Cardiovascular exam: Present: RRR, +S1, +S2. Absent: diastolic murmur, gallop, rubs, systolic murmur - GI/Abdominal GI/Abdominal exam: Present: normal bowel sounds, soft, no peritoneal signs. Absent: distended, tenderness - Extremities Exam Extremities exam: Present: warm, radial pulses palpable and symetrical. Absent : calf tenderness, cyanotic, pedal edema - Neurological Exam Neurological exam: Present: CN II-XII intact, oriented X3, no focal deficits. Absent: pronater drift, facial droop, speech deficit Internal Medicine: Result - Labs CBC & Chem 7: 05/26/16 03:05 05/26/16 15:00 Labs: Short CBC 05/26/16 Range/Units 03:05 WBC 2.0 L (4.3-11.1) K/mcL Hgb 8.0 L (11.5-15.4) g/dL Hct 24.6 L (35.3-44.9) % Plt Count 78 L (140-400) K/mcL Neutrophils # 1.3 L (1.6-8.9) K/mcL BMP 05/26/16 05/26/16 03:05 15:00 Sodium 129 L 130 L Potassium 5.0 H 4.9 H Chloride 108 109 Carbon Dioxide 13 L 13 L BUN 55 H 52 H Creatinine 2.82 H 2.81 H Glucose 137 H 132 H Calcium 7.0 L 6.7 L - ABG Interpretation ABG results: PT/INR, D-dimer PT 11.1 Seconds (9.4-12.1) 05/22/16 22:05 - VTE Documentation of Mechanical Device: Intermittent pneumatic compression device Consult Discharge Plan - Plan Referrals: Vitaly Green MD [Partnered Physician] - 06/08/16 2:10 pm Marko Hylton Jr, MD [Primary Care Provider] - 06/01/16 2:30 pm () NO,PCP [Non-Partnered Physician] -
[2016-05-26] MEDS: *HR* Promethazine 25 MG/ML VIAL IVP PRN (17:20)
[2016-05-27] MEDS: Clindamycin 600 MG/50 ML 600 MG/50 ML IV.SOLN IVPB SCH ×3 (00:01→14:58)
[2016-05-27] MEDS: Ondansetron 4 MG/2 ML VIAL IVP PRN ×2 (02:29→11:29)
[2016-05-27] MEDS: *HR* OxyCODONE Immed Rel 5 MG TABLET PO PRN ×3 (02:29→20:16)
[2016-05-27 03:49] LABS: Calcium 6.9 mg/dL (8.6-10.8); Potassium 5.2 mEq/L (3.5-4.5)
[2016-05-27] MEDS: Ipratropium/Albuterol Neb 3 ML IH SCH ×4 (04:34→22:50)
[2016-05-27] MEDS: Aztreonam 1,000 MG in D5% in Water (Mini-Bag+) 100 ML IVPB SCH (06:04)
[2016-05-27] MEDS: hydrALAZINE 25 MG TABLET PO SCH ×3 (06:30→21:23)
[2016-05-27] MEDS: *HR* Morphine 2 MG/ML SYRINGE IVP PRN ×2 (06:36→14:58)
[2016-05-27] MEDS: Insulin LISPRO 300 UNITS/3 ML VIAL SQ SCH ×4 (07:42→21:18)
[2016-05-27] MEDS: Azithromycin 250 MG TABLET PO SCH (07:50)
[2016-05-27] MEDS: cloNIDine HCl 0.1 MG TABLET PO SCH ×3 (07:50→20:16)
[2016-05-27] MEDS: Famotidine 20 MG TABLET PO SCH (07:50)
[2016-05-27] MEDS: Insulin DETEMIR 100 UNIT/ML X5UNITS SQ SCH ×2 (07:51→21:23)
[2016-05-27] MEDS: amLODIPine 5 MG TABLET PO SCH ×2 (07:51→20:17)
[2016-05-27] MEDS: XIFAXAN 550 MG PO SCH ×3 (07:52→21:18)
[2016-05-27] MEDS: ALPRAZolam 0.5 MG TABLET PO SCH ×3 (07:52→20:16)
--- NOTE | 2016-05-27 10:44 | Nephrology Consult Note ---
Date of Encounter: 05/27/16 Time of Encounter: 10:39 History of Present Illness - Reason for Consult Consult date: 05/27/16 Acute Kidney Injury, Chronic Kidney Disease, metabolic acidosis - Chief Complaint metabolic acidosis. - History of Present Illness Mrs. Elkins is a 41 yo woman with a history of CKD followed by Dr. Rodas of [facility] who presents and was found to have a pneumonia and DKA. She was also found to have TORREY and metabolic acidosis. While her TORREY has improved slightly she has a persistent metabolic acidosis and nephrology was consulted to address the acidosis. At the time of my evaluation the patient is lying in bed with her family member at the bedside. She states she is quite fatigued, but denies shortness of breath. She has mild chest discomfort which is getting better and has noticed some edema. She denies nausea or diarrhea. She denies hematuria or dysuria. Past Med Surg Social Fam HX - Past Medical History Medical history: arthritis, CHF, diabetes, GERD (History of gastric bypass for obesity. History of small bowel bacterial overgrowth with malabsorption. History of postcholecystectomy secretory diarrhea. Pancreatic insufficiency.), hypertension, kidney stones, renal disease (CKD IV. Nephrotic syndrome.), thyroid disease, other (Pernicious anemia. Iron deficiency. B12 deficiency.) Psychiatric history: anxiety, depression - Past Surgical History Surgical History: cholecystectomy, hysterectomy (Right salpingo-oophorectomy.), other (Gastric bypass for obesity.) - Social History Smoking Status: Never smoker Smokeless Tobacco Status: No Alcohol use: none Drug use: none Medications and Allergies Rifaximin [Xifaxan] 550 mg PO TID 12/21/15 [History] Amlodipine [Norvasc] 10 mg PO DAILY #30 tablet 12/24/15 [Rx] CloNIDine HCl 0.3 mg PO TID #90 tablet 12/24/15 [Rx] Ergocalciferol (VITAMIN D2) [Drisdol (50,000 Unit)] 50,000 unit PO QWEEK #12 capsule 12/24/15 [Rx] Furosemide [Lasix] 20 mg PO BID tablet 12/24/15 [Rx] HydrALAZINE 50 mg PO Q8HR #90 tablet 12/24/15 [Rx] Levothyroxine [Synthroid] 100 mcg PO 0630 tablet 10/01/16 [Rx] Alprazolam [Xanax 0.5 MG Tablet] 0.5 mg PO TID 05/22/16 [History] Cyanocobalamin (B-12) [Vitamin B12] 1,000 mcg IM Q2W 05/22/16 [History] Diltiazem CD (24hr) [Cardizem CD] 240 mg PO DAILY 05/22/16 [History] Folic Acid mg PO DAILY 05/22/16 [History] Hydrocodone/Acetaminophen [[place] 5-325 Tablet] 1 - 2 tab PO Q4-6H PRN 05/22/16 [ History] Insulin LISPRO [HumaLOG] 0 unit SQ AD PRN 05/22/16 [History] Lipase/Protease/Amylase [Alphonsoon Dr 6,000 Units Capsule] 3 each PO TIDWM 05/22/16 [History] SUMAtriptan Succinate [Imitrex] 100 mg PO DAILY PRN 05/22/16 [History] Allergies cephalexin [From Keflex] Allergy (Verified 03/19/16 11:11) Hives patient states she can take benadryl with this ciprofloxacin [From Cipro] Allergy (Verified 03/19/16 11:11) Hives patient states she can take benadryl with this levofloxacin [From Levaquin] Allergy (Verified 03/19/16 11:11) Difficulty Breathing ofloxacin Allergy (Verified 03/19/16 11:11) Rash patient states she can take benadryl with this penicillin V Allergy (Verified 03/19/16 11:11) Hives patient states she can take benadryl with this sulfamethoxazole [From Bactrim] Allergy (Verified 03/19/16 11:11) Hives patient states she can take benadryl with this trimethoprim [From Bactrim] Allergy (Verified 03/19/16 11:11) Hives patient states she can take benadryl with this Review of Systems All Systems: reviewed and no additional remarkable complaints except as stated ( documented in the HPI.) Exam - Vital Signs Vital signs: Initial Vital Signs Temp Pulse Resp BP Pulse Ox 98.8 F 90 16 158/88 85 L 05/22/16 17:54 05/22/16 17:54 05/22/16 17:54 05/22/16 17:54 05/22/16 17:54 Vital Signs - Last 8 Hours Temp Pulse Resp BP Pulse Ox 05/27/16 09:22 16 98 05/27/16 06:45 97.3 F L 80 13 135/79 95 05/27/16 04:34 14 99 05/27/16 03:30 97.8 F 74 14 133/82 97 Intake and Output 05/26/16 05/27/16 05/27/16 23:59 07:59 15:59 Intake Total 620 / 620 390 / 390 120 / 120 Output Total 400 / 400 700 / 700 Balance 220 / 220 -310 / -310 120 / 120 Intake: IV Fluids 150 / 150 150 / 150 Azactam 1,000 MG In 100 / 100 100 / 100 Dextrose 5% (Minibag+) 100 ML 100 ML @ 200 mls/ hr IVPB Q12H [facility] Rx#: [id number] Cleocin 600 MG/50 ML 600 50 / 50 50 / 50 mg In 50 ml @ 50 mls/hr IVPB Q8HR [facility] Rx#: [id number] Oral 470 / 470 240 / 240 120 / 120 Output: Urine 400 / 400 700 / 700 Other: Meal Dinner Breakfast Percent of Meal Consumed 75% 50% Weight 101.803 kg Blood Glucose* 203 103 Patient Weight 05/27/16 23:59 Weight 101.803 kg - General Appearance General appearance: well-developed, well-nourished EENT: ATNC Neck: supple Respiratory: rales (scattered), course breath sounds, rhonchi Cardiology: edema, regular rate, regular rhythm Gastrointestinal: normoactive bowel sounds, no tenderness Integumentary: warm and dry Neurologic: alert and oriented x3 Musculoskeletal: no cyanosis Psychiatric: mood/affect appropriate Results - Lab Results 05/26/16 03:05 05/27/16 03:25 Most recent lab results Calcium 6.9 mg/dL (8.6-10.8) L 05/27/16 03:25 Phosphorus 7.5 mg/dL (2.3-4.7) H 05/25/16 04:14 Magnesium 1.5 mg/dL (1.6-2.6) L 05/25/16 04:14 Consult Discharge Plan - Plan Referrals: Vitaly Green MD [Partnered Physician] - 06/08/16 2:10 pm Marko Hylton Jr, MD [Primary Care Provider] - 06/01/16 2:30 pm () NO,PCP [Non-Partnered Physician] -
[2016-05-27] MEDS ORDERED: Sodium Bicarbonate 150 MEQ in D5% in Water 1,000 ML IVC PRN (10:47)
--- NOTE | 2016-05-27 15:20 | Internal Med Progress Note ---
Date of Encounter: 05/27/16 Time of Encounter: 15:18 - Assessment and plan (1) Metabolic acidosis with normal anion gap and bicarbonate losses Current Visit: Yes Status: Acute Assessment and plan: Slightly improved; This could be due to diarrhea and underlying chronic kidney disease. Nephrology consult appreciated, recommend 1L of sodium bicarbonate drip; Patient follows with GI as outpatient for diarrhea and has been started on Xifaxan and pancrelipase for small bowel bacterial overgrowth; (2) DKA (diabetic ketoacidoses) Current Visit: Yes Status: Acute Assessment and plan: Resolved DKA. Persistent metabolic acidosis. Blood sugars noted to be well- controlled on basal bolus insulin regimen. Plan to discharge patient on prescriptions for basal bolus insulin regimen with injections until she can follow with endocrinology and have her insulin pump reevaluated. Continue Accu- Chek blood glucose monitoring. Diabetic diet. Qualifiers: Qualified Code(s): E10.10 - Type 1 diabetes mellitus with ketoacidosis without coma (3) Bilateral pneumonia Current Visit: Yes Status: Acute Assessment and plan: Improving clinically. No fever, leukocytosis, dyspnea and does not require supplemental oxygen. Antibiotic allergies reviewed with patient, reports that they are not true allergies and she does well when she takes them with Benadryl. blood cultures so far negative. will continue Clindamycin and Azithromycin and add Rocephin along with Benadryl. Continue supportive care. Qualifiers: Qualified Code(s): J18.9 - Pneumonia, unspecified organism (4) Altered mental status Current Visit: Yes Status: Resolved Qualifiers: Qualified Code(s): R40.1 - Stupor (5) Type I diabetes mellitus Current Visit: Yes Status: Chronic Qualifiers: Qualified Code(s): E10.21 - Type 1 diabetes mellitus with diabetic nephropathy (6) CKD (chronic kidney disease), stage IV Current Visit: Yes Status: Chronic Assessment and plan: Serum creatinine noted to be improving. Continue to monitor urine output and serum creatinine; dose antibiotics per current GFR; (7) Hypothyroidism Current Visit: Yes Status: Chronic Qualifiers: Qualified Code(s): E03.9 - Hypothyroidism, unspecified (8) Iron deficiency Current Visit: Yes Status: Chronic (9) Vitamin B12 deficiency Current Visit: Yes Status: Chronic (10) Hyponatremia Current Visit: Yes Status: Acute Assessment and plan: Stable and improving. likely due to DKA and IV fluid hydration with hypotonic fluids; - Subjective Interval history: Feels better; improved nausea and still has some diarrhea; no chest pain or dyspnea; improving myalgia; - Constitutional Vitals: Temp Pulse Resp BP Pulse Ox 97.9 F 76 16 124/75 99 05/27/16 11:24 05/27/16 11:24 05/27/16 11:24 05/27/16 11:24 05/27/16 11:24 General appearance: Present: A&O X 3, obese, answers questions appropriately - Respiratory Respiratory exam: Present: CTAB. Absent: accessory muscle use, rales, rhonchi, wheezes - Cardiovascular Cardiovascular exam: Present: RRR, +S1, +S2. Absent: diastolic murmur, gallop, rubs, systolic murmur - GI/Abdominal GI/Abdominal exam: Present: normal bowel sounds, soft, no peritoneal signs. Absent: distended, tenderness - Extremities Exam Extremities exam: Present: full ROM, warm, radial pulses palpable and symetrical. Absent: calf tenderness, cyanotic, pedal edema - Neurological Exam Neurological exam: Present: CN II-XII intact, oriented X3, no focal deficits. Absent: pronater drift, facial droop, speech deficit Internal Medicine: Result - Labs CBC & Chem 7: 05/26/16 03:05 05/27/16 03:25 Labs: BMP 05/26/16 05/27/16 15:00 03:25 Sodium 130 L 133 L Potassium 4.9 H 5.2 H Chloride 109 111 H Carbon Dioxide 13 L 15 L BUN 52 H 51 H Creatinine 2.81 H 2.63 H Glucose 132 H 95 Calcium 6.7 L 6.9 L - ABG Interpretation ABG results: PT/INR, D-dimer PT 11.1 Seconds (9.4-12.1) 05/22/16 22:05 - VTE Documentation of Mechanical Device: Intermittent pneumatic compression device Consult Discharge Plan - Plan Referrals: Vitaly Green MD [Partnered Physician] - 06/08/16 2:10 pm Marko Hylton Jr, MD [Primary Care Provider] - 06/01/16 2:30 pm () NO,PCP [Non-Partnered Physician] -
[2016-05-27] MEDS: *HR* Promethazine 25 MG/ML VIAL IVP PRN (21:24)
[2016-05-28] MEDS: Clindamycin 600 MG/50 ML 600 MG/50 ML IV.SOLN IVPB SCH ×3 (00:54→08:38)
[2016-05-28] MEDS: *HR* Morphine 2 MG/ML SYRINGE IVP PRN ×3 (02:59→14:58)
[2016-05-28] MEDS: Ipratropium/Albuterol Neb 3 ML IH SCH ×3 (04:23→14:42)
[2016-05-28] MEDS: *HR* OxyCODONE Immed Rel 5 MG TABLET PO PRN ×2 (06:14→12:54)
[2016-05-28] MEDS: hydrALAZINE 25 MG TABLET PO SCH ×2 (06:14→15:20)
[2016-05-28] MEDS: Famotidine 20 MG TABLET PO SCH (08:37)
[2016-05-28] MEDS: Azithromycin 250 MG TABLET PO SCH (08:37)
[2016-05-28] MEDS: cloNIDine HCl 0.1 MG TABLET PO SCH ×2 (08:37→14:53)
[2016-05-28] MEDS: ALPRAZolam 0.5 MG TABLET PO SCH ×2 (08:37→14:52)
[2016-05-28] MEDS: amLODIPine 5 MG TABLET PO SCH (08:38)
[2016-05-28] MEDS: Insulin LISPRO 300 UNITS/3 ML VIAL SQ SCH ×3 (08:38→16:48)
[2016-05-28] MEDS: Insulin DETEMIR 100 UNIT/ML X5UNITS SQ SCH (08:40)
[2016-05-28] MEDS: XIFAXAN 550 MG PO SCH ×2 (08:42→14:51)
[2016-05-28] MEDS: Ondansetron 4 MG/2 ML VIAL IVP PRN (08:49)
[2016-05-28 10:48] LABS: Calcium 7.4 mg/dL (8.6-10.8); Potassium 5.3 mEq/L (3.5-4.5)
--- NOTE | 2016-05-28 11:28 | Nephrology Progress Note ---
Date of Encounter: 05/28/16 Time of Encounter: 11:27 Subjective Principal diagnosis: metabolic acidosis Interval history: Patient seen. She is getting her labs drawn at the time of evaluation. Objective - Vital Signs Vital signs: Vital Signs Temp Pulse Resp BP Pulse Ox 05/28/16 11:17 98.0 F 88 16 162/88 95 05/28/16 06:38 97.8 F 84 16 155/84 95 05/28/16 04:38 98.0 F 86 18 150/90 94 L 05/28/16 00:33 97.4 F L 84 18 153/98 97 05/27/16 22:50 18 97 05/27/16 20:09 97.6 F 80 16 157/86 95 05/27/16 17:23 97.6 F 78 16 130/81 95 Intake and Output 05/27/16 05/28/16 05/28/16 23:59 07:59 15:59 Intake Total 100 / 100 340 / 340 100 / 100 Output Total 200 / 200 1000 / 1000 600 / 600 Balance -100 / -100 -660 / -660 -500 / -500 Intake: IV Fluids 100 / 100 100 / 100 Rocephin 1,000 MG In 100 / 100 100 / 100 Dextrose 5% (Minibag+) 100 ML 100 ML @ 200 mls/ hr IVPB Q12HR [facility] Rx#: [id number] Oral 240 / 240 100 / 100 Output: Urine 200 / 200 1000 / 1000 600 / 600 Other: Stool Size Large Stool Consistency liquid Stool Color Black # Bowel Movements 0 1 Weight 102.53 kg Blood Glucose* 143 79 203 Patient Weight 05/28/16 23:59 Weight 102.53 kg - Lab 05/26/16 03:05 05/28/16 10:25 Most recent lab results Calcium 7.4 mg/dL (8.6-10.8) L 05/28/16 10:25 Phosphorus 7.5 mg/dL (2.3-4.7) H 05/25/16 04:14 Magnesium 1.5 mg/dL (1.6-2.6) L 05/25/16 04:14 - VTE Documentation of Mechanical Device: Intermittent pneumatic compression device Consult Discharge Plan - Plan Referrals: Vitaly Green MD [Partnered Physician] - 06/08/16 2:10 pm Marko Hylton Jr, MD [Primary Care Provider] - 06/01/16 2:30 pm () NO,PCP [Non-Partnered Physician] -
[2016-05-28] MEDS ORDERED: Sodium Bicarbonate 150 MEQ in D5% in Water 1,000 ML IVC PRN (12:47)
[2016-05-28] MEDS ORDERED: hydrALAZINE 25 MG TABLET PO SCH (14:10)
[2016-05-28 14:30] VITALS: BP 145/84
--- NOTE | 2016-05-28 16:40 | Discharge Summary ---
Date of Encounter: 05/28/16 Time of Encounter: 15:00 - Discharge Diagnosis (1) Metabolic acidosis with normal anion gap and bicarbonate losses Priority: Primary Status: Acute (2) DKA (diabetic ketoacidoses) Priority: Primary Status: Acute Qualifiers: Qualified Code(s): E10.10 - Type 1 diabetes mellitus with ketoacidosis without coma (3) Bilateral pneumonia Priority: Primary Status: Acute Qualifiers: Qualified Code(s): J18.9 - Pneumonia, unspecified organism (4) Altered mental status Priority: Primary Status: Resolved Qualifiers: Qualified Code(s): R40.1 - Stupor (5) Type I diabetes mellitus Priority: Secondary Status: Chronic Qualifiers: Qualified Code(s): E10.21 - Type 1 diabetes mellitus with diabetic nephropathy (6) CKD (chronic kidney disease), stage IV Priority: Secondary Status: Chronic (7) Hypothyroidism Priority: Secondary Status: Chronic Qualifiers: Qualified Code(s): E03.9 - Hypothyroidism, unspecified (8) Iron deficiency Priority: Secondary Status: Chronic (9) Vitamin B12 deficiency Priority: Secondary Status: Chronic (10) Hyponatremia Priority: Primary Status: Acute - Discharge Medications Prescriptions: Insulin DETEMIR [Levemir] 10 unit SQ BID 30 Days Insulin LISPRO [HumaLOG] 0 units SQ HS 30 Days Insulin LISPRO [HumaLOG] 0 units SQ TIDAC 30 Days Syrge-Ndl,Ins 0.3 ml Half David [Insulin Syringe] 1 each [facility] #100 disp.syrin Home Medications: Rifaximin [Xifaxan] 550 mg PO TID 12/21/15 [History] Amlodipine [Norvasc] 10 mg PO DAILY #30 tablet 12/24/15 [Rx] CloNIDine HCl 0.3 mg PO TID #90 tablet 12/24/15 [Rx] Ergocalciferol (VITAMIN D2) [Drisdol (50,000 Unit)] 50,000 unit PO QWEEK #12 capsule 12/24/15 [Rx] Furosemide [Lasix] 20 mg PO BID tablet 12/24/15 [Rx] HydrALAZINE 50 mg PO Q8HR #90 tablet 12/24/15 [Rx] Levothyroxine [Synthroid] 100 mcg PO 0630 tablet 12/24/15 [Rx] Alprazolam [Xanax 0.5 MG Tablet] 0.5 mg PO TID 05/22/16 [History] Cyanocobalamin (B-12) [Vitamin B12] 1,000 mcg IM Q2W 05/22/16 [History] Diltiazem CD (24hr) [Cardizem CD] 240 mg PO DAILY 05/22/16 [History] Folic Acid mg PO DAILY 05/22/16 [History] Hydrocodone/Acetaminophen [[place] 5-325 Tablet] 1 - 2 tab PO Q4-6H PRN 05/22/16 [ History] Lipase/Protease/Amylase [Creon Dr 6,000 Units Capsule] 3 each PO TIDWM 05/22/16 [History] SUMAtriptan Succinate [Imitrex] 100 mg PO DAILY PRN 05/22/16 [History] Insulin DETEMIR [Levemir] 10 unit SQ BID 30 Days 05/28/16 [Rx] Insulin LISPRO [HumaLOG] 0 units SQ HS 30 Days 05/28/16 [Rx] Insulin LISPRO [HumaLOG] 0 units SQ TIDAC 30 Days 05/28/16 [Rx] Syrge-Ndl,Ins 0.3 ml Half David [Insulin Syringe] 1 each [facility] #100 disp.syrin 05/28/16 [Rx] Allergies/Adverse Reactions: Allergies cephalexin [From Keflex] Allergy (Verified 03/19/16 11:11) Hives patient states she can take benadryl with this ciprofloxacin [From Cipro] Allergy (Verified 03/19/16 11:11) Hives patient states she can take benadryl with this levofloxacin [From Levaquin] Allergy (Verified 03/19/16 11:11) Difficulty Breathing ofloxacin Allergy (Verified 03/19/16 11:11) Rash patient states she can take benadryl with this penicillin V Allergy (Verified 03/19/16 11:11) Hives patient states she can take benadryl with this sulfamethoxazole [From Bactrim] Allergy (Verified 03/19/16 11:11) Hives patient states she can take benadryl with this trimethoprim [From Bactrim] Allergy (Verified 03/19/16 11:11) Hives patient states she can take benadryl with this Date of admission: 05/23/16 14:30 Primary care physician: Marko Hylton Jr, MD Consults: 05/26/16 16:26 Consult to Nephrology [CONS] Routine Consulting Provider: [facility]/IVY/ASHWINI/GEORGI Reason for Consult: Metabolic acidosis, hyponatremia Call Completed: Yes Discharging clinician: Kalli Vázquez Anticipated date of discharge: 05/28/16 - Patient Status Disposition: Home, Self-Care Condition: Good Functional capacity at discharge: independent ambulation Overall status at discharge: patient is progressing back to baseline - Discharge Instructions Follow Up With: Vitaly Green MD [Partnered Physician] - 06/08/16 2:10 pm Marko Hylton Jr, MD [Primary Care Provider] - 06/01/16 2:30 pm () Norris Rodas DO [Partnered Physician] - 06/13/16 4:10 pm Additional Instructions: F/up with [facility] in 4-6 weeks or as scheduled; recheck BMP on 06/01/16 - Diet and Activity Activity: resume usual activities as tolerated Diet: diabetic diet, low fat, low cholesterol, low salt diet, other (renal, low potassium diet) Hospital course: Ms. Elkins is a 41 year old female with h/o- DM admitted with altered mental status, hypoglycemia and myalgia. SHe was noted to have hyperglycemia immeidtaely after admission and went into DKA, and started on IV insulin drip and kept NPO per protocol. Her blood sugars gradually improved, and she tolerated oral diet. Her insulin pump was having battery issues and she is recommended to be discharged on basal bolus subcutaneous insulin regimen until her Endocrinology appointment. SHe was noted to have persistent metabolic acidosis, hyperkalemia and hyponatremia. Serum sodium improved with fluid restriction. Nephrology was consulted and she received a bag of IV sodium bicarbonate drip, with improvement in bicarbonate. She is asymptomatic now and stable for discharge with outpatient BMP f/up. - Time Spent with Patient Total time spent providing and/or coordinating discharge services: Greater than 30 minutes (50 min) - Constitutional Vitals: Temp Pulse Resp BP Pulse Ox 98.3 F 85 16 145/84 94 L 05/28/16 14:28 05/28/16 14:28 05/28/16 14:42 05/28/16 14:28 05/28/16 14:42 General appearance: Present: A&O X 3, obese, answers questions appropriately - Respiratory Respiratory exam: Present: CTAB. Absent: accessory muscle use, rales, rhonchi, wheezes - Cardiovascular Cardiovascular exam: Present: RRR, +S1, +S2. Absent: diastolic murmur, gallop, rubs, systolic murmur - VTE Documentation of Mechanical Device: Intermittent pneumatic compression device
== END 2016-05-28 19:02 | disposition home or self-care (01) | DRG 637 ==
LOC: 2NENU 17:52 → EMEROO 17:52 → 2NENU 21:21 → 2NNU 05-23 08:15 → 3ANU 05-25 18:52
PROVIDERS: ADMIT Internal Medicine Sleep Medicine; ATTEND Internal Medicine

== ENCOUNTER 2016-09-06 15:36 | Inpatient (IN) ==
--- NOTE | 2016-09-06 15:54 | Emergency Department Note ---
Disposition Clinical Impression: Pancytopenia Chest pain Qualifiers: Chest pain type: unspecified Qualified Code(s): R07.9 - Chest pain, unspecified Chronic kidney disease Qualifiers: Chronic kidney disease stage: stage 4 (severe) Qualified Code(s): N18.4 - Chronic kidney disease, stage 4 (severe) Disposition: Admitted As Inpatient Condition: Fair Referrals: NO,PCP [Non-Partnered Physician] - Forms: ED Satisfaction Letter Chest Pain HPI - General Chief Complaint: ED Chest Pain Stated Complaint: UTE, CP Time Seen by Provider: 09/06/16 16:03 Source: patient Mode of arrival: private vehicle Limitations: no limitations Vital Signs Reviewed: Yes Nursing Notes Reviewed: Yes - History of Present Illness HPI Narrative: 41-year-old female history of chronic kidney disease not on dialysis, insulin- dependent diabetes, iron deficiency anemia, hypertension who presents to the ER with a chief complaint of chest pain and shortness of breath. Patient reports that symptoms began this morning when she woke. She describes left-sided chest pressure without radiation. She states she had this roughly 5 years ago where she had a full workup including stress test and heart catheterization that were fine. She states that the pain has been constant since this morning. She has not taken anything for it. She does report that lately her potassium has been elevated and that she is following with the pipe straightener who is likely going to admit her if they were unable to get it down by the end of this week. She also reports bone pain and thinks that it similar to when she had an injection for her bone marrow stimulator. She denies a history of AR or stent placement. She did feel nauseous this morning as well. No other complaints. Pt complaint: chest pain, other (Shortness of breath) Onset (ago): hour(s) Time: 08:00 Duration: constant Onset: during rest Pain Location: left chest Severity: moderate Severity scale (1-10): 7 Quality: tightness Pain Radiation: none Improves with: nothing Worsens with: nothing Associated symptoms: Reports: nausea, diaphoresis (Night sweats), dyspnea. Denies: vomiting, fever Treatments prior to arrival chest pain: none - Related Data On Oral Contraceptives: No Home Medications Medication Instructions Recorded Confirmed Rifaximin [Xifaxan] 550 mg PO TID 12/21/15 04/26/16 ALPRAZolam [Xanax 0.5 MG Tablet] 0.5 mg PO TID 05/22/16 05/22/16 Cyanocobalamin (B-12) [Vitamin B12] 1,000 mcg IM Q2W 05/22/16 Diltiazem CD (24hr) [Cardizem CD] 240 mg PO DAILY 05/22/16 Folic Acid mg PO DAILY 05/22/16 Hydrocodone/Acetaminophen [[place] 1 - 2 tab PO Q4-6H PRN 05/22/16 05/22/16 5-325 Tablet] Lipase/Protease/Amylase [Creon Dr 3 each PO TIDWM 05/22/16 6,000 Units Capsule] SUMAtriptan Succinate [Imitrex] 100 mg PO DAILY PRN 05/22/16 Previous Rx's Medication Instructions Recorded Ergocalciferol (VITAMIN D2) 50,000 unit PO QWEEK #12 capsule 12/24/15 [Drisdol (50,000 Unit)] Furosemide [Lasix] 20 mg PO BID tablet 12/24/15 Levothyroxine [Synthroid] 100 mcg PO 0630 tablet 12/24/15 amLODIPine [Norvasc] 10 mg PO DAILY #30 tablet 12/24/15 cloNIDine HCl [CloNIDine HCl] 0.3 mg PO TID #90 tablet 12/24/15 hydrALAZINE [HydrALAZINE] 50 mg PO Q8HR #90 tablet 12/24/15 Insulin DETEMIR [Levemir] 10 unit SQ BID 30 Days 05/28/16 Insulin LISPRO [HumaLOG] 0 units SQ HS 30 Days 05/28/16 Insulin LISPRO [HumaLOG] 0 units SQ TIDAC 30 Days 05/28/16 Syrge-Ndl,Ins 0.3 ml Half [place] 1 each ACHS #100 disp.syrin 05/28/16 [Insulin Syringe] Allergies Allergy/AdvReac Type Severity Reaction Status Date / Time cephalexin [From Keflex] Allergy Hives Verified 03/19/16 11:11 ciprofloxacin [From Cipro] Allergy Hives Verified 03/19/16 11:11 levofloxacin [From Levaquin] Allergy Difficulty Verified 03/19/16 11:11 Breathing ofloxacin Allergy Rash Verified 03/19/16 11:11 penicillin V Allergy Hives Verified 03/19/16 11:11 sulfamethoxazole Allergy Hives Verified 03/19/16 11:11 [From Bactrim] trimethoprim [From Bactrim] Allergy Hives Verified 03/19/16 11:11 All systems ED: reviewed and negative except as stated. Constitutional: Reports: chills. Denies: fever Cardiovascular: Reports: chest pain Respiratory: Reports: dyspnea. Denies: cough, wheezes Gastrointestinal: Reports: nausea. 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: Reports: no WHARF LABOURER history - Social History Smoking Status: Never smoker Alcohol use: Reports: none Drug use: Reports: none Physical Exam - General Limitations: no limitations General appearance: alert, in no apparent distress - Head Head exam: atraumatic, normocephalic, normal inspection - Eye Eye exam: Present: normal appearance, EOMI - ENT ENT exam: normal exam - Neck Neck exam: Present: normal inspection - Chest Chest inspection: Present: normal inspection, symmetric chest wall rise, tenderness (Patient does have some left-sided rib tenderness to palpation but reports this is different from the pressure she is feeling.) - Respiratory Respiratory exam: Present: normal lung sounds bilaterally - Cardiovascular Cardiovascular exam: Present: regular rate, normal rhythm, normal heart sounds, systolic murmur - Abdominal Exam Abdominal exam: Present: soft, Non-Tender. Absent: tenderness - Extremities Exam Extremities exam: Present: normal inspection, full ROM - Expanded Upper Extremity Exam Shoulder exam: Present: normal inspection, full ROM Arm exam: Present: normal inspection, full ROM Elbow exam: Present: normal inspection, full ROM Forearm/Wrist exam: Present: normal inspection, full ROM Hand exam: Present: normal inspection, full ROM - Expanded Lower Extremity Exam Hip/Pelvis exam: Present: normal inspection, full ROM Upper leg exam: Present: normal inspection, full ROM Knee exam: Present: normal inspection, full ROM Lower leg exam: Present: normal inspection, full ROM Ankle exam: Present: normal inspection, full ROM Foot/toe exam: Present: normal inspection, full ROM - Neurological Exam Neurological exam: Present: alert - Psychiatric Psychiatric exam: Present: normal affect, normal mood - Skin Skin exam: Present: warm, dry, intact, normal color Course Course Narrative: Patient seen and examined. Vital signs reviewed. She does have some reproducible pain on exam but reports this is different from her chest pressure. She is satting well on room air. Her EKG is nonischemic. Cardiac labs ordered as well as aspirin and nitroglycerin. Likely disposition will be admission for chest pain rule out. - Reevaluation(s) Reevaluation #1: Discussed results of imaging and lab work with the patient. Vital Signs Temperature 97.9 F 09/06/16 15:43 Pulse Rate 76 09/06/16 15:43 Respiratory Rate 14 09/06/16 15:43 Blood Pressure 192/99 09/06/16 15:43 O2 Sat by Pulse Oximetry 99 09/06/16 15:43 Temperature 97.9 F 09/06/16 15:43 Pulse Rate 70 09/06/16 17:02 Respiratory Rate 18 09/06/16 17:02 Blood Pressure 154/86 09/06/16 17:02 O2 Sat by Pulse Oximetry 99 09/06/16 17:02 Oxygen Delivery Oxygen Delivery Room Air Chest Pain - MDM Narrative Medical decision making narrative: 41-year-old female presents to the ER due to chest pain or shortness of breath since this morning. Atraumatic in nature. EKG is nonischemic. Chest x-ray does show mild pulmonary congestion. Troponin is negative. BNP is slightly elevated. Patient was given nitroglycerin with improvement of her symptoms. No recent cardiac workup. Admitted to the hospitalist service for further management. - Lab Data Lab results reviewed: Yes I reviewed the patient's lab results. Result diagrams: 09/06/16 16:30 09/06/16 16:30 Lab Results 09/06/16 09/06/16 09/06/16 Range/Units 16:30 16:30 16:30 WBC 2.0 L (4.3-11.1) K/mcL RBC 2.22 L (3.82-4.97) M/mcL Hgb 7.4 L (11.5-15.4) g/dL Hct 21.7 L (35.3-44.9) % MCV 97.7 (83.0-100.0) fL MCH 33.3 (28.0-33.3) pg MCHC 34.1 (31.6-35.5) g/dL RDW 13.9 (11.5-14.5) % Plt Count 100 L (140-400) K/mcL MPV 9.9 (9.4-12.4) fL Immature Gran % 0.0 (0-4) % Seg Neutrophils % 59.7 % Lymphocytes % 29.6 % Monocytes % 8.7 % Eosinophils % 1.5 % Basophils % 0.5 % Neutrophils # 1.2 L (1.6-8.9) K/mcL Lymphocytes # 0.6 (0.6-4.6) K/mcL Monocytes # 0.2 (0.0-1.3) K/mcL Eosinophils # 0.0 (0.0-0.6) K/mcL Basophils # 0.0 (0.0-0.2) K/mcL Platelet Estimate Slight Decrease L (Normal) Immature Plt Fraction 2.0 (1.1-6.1) % Basophilic Stippling 1+ A (Not Present) PT 11.3 (9.4-12.1) Seconds INR 1.0 APTT 66.5 H (26.0-36.0) Seconds Sodium (136-145) mEq/L Potassium (3.5-4.5) mEq/L Chloride (98-109) mEq/L Carbon Dioxide (19-29) mEq/L BUN (7-20) mg/dL Creatinine (0.57-1.11) mg/dL Est GFR ( Amer) (> 60) Est GFR (Non-Af Amer) (> 60) BUN/Creatinine Ratio (6-26) Glucose (70-99) mg/dL Calculated Osmolality (280-300) Calcium (8.6-10.8) mg/dL Troponin I (0-0.03) ng/mL B-Natriuretic Peptide 376 H (0-100) pg/mL 09/06/16 09/06/16 Range/Units 16:30 16:30 WBC (4.3-11.1) K/mcL RBC (3.82-4.97) M/mcL Hgb (11.5-15.4) g/dL Hct (35.3-44.9) % MCV (83.0-100.0) fL MCH (28.0-33.3) pg MCHC (31.6-35.5) g/dL RDW (11.5-14.5) % Plt Count (140-400) K/mcL MPV (9.4-12.4) fL Immature Gran % (0-4) % Seg Neutrophils % % Lymphocytes % % Monocytes % % Eosinophils % % Basophils % % Neutrophils # (1.6-8.9) K/mcL Lymphocytes # (0.6-4.6) K/mcL Monocytes # (0.0-1.3) K/mcL Eosinophils # (0.0-0.6) K/mcL Basophils # (0.0-0.2) K/mcL Platelet Estimate (Normal) Immature Plt Fraction (1.1-6.1) % Basophilic Stippling (Not Present) PT (9.4-12.1) Seconds INR APTT (26.0-36.0) Seconds Sodium 134 L (136-145) mEq/L Potassium 5.1 H (3.5-4.5) mEq/L Chloride 103 (98-109) mEq/L Carbon Dioxide 23 (19-29) mEq/L BUN 56 H (7-20) mg/dL Creatinine 2.95 H (0.57-1.11) mg/dL Est GFR ( Amer) 21 L (> 60) Est GFR (Non-Af Amer) 18 L (> 60) BUN/Creatinine Ratio 19 (6-26) Glucose 143 H (70-99) mg/dL Calculated Osmolality 296 (280-300) Calcium 7.7 L (8.6-10.8) mg/dL Troponin I 0.00 (0-0.03) ng/mL B-Natriuretic Peptide (0-100) pg/mL - Radiology Data Radiology results reviewed: Yes I reviewed the patient's radiology results. Chest X-Ray 09/06/16 16:03 IMPRESSION: Pulmonary vascular congestion. D/ / Bryant Jones MD / Bryant Jones MD Interpreting Provider: Bryant Jones MD - EKG Data EKG attestation: Yes I reviewed and interpreted this EKG. EKG results narrative: EKG demonstrates sinus rhythm with a rate of 77 bpm. Normal axis. Normal intervals. No ST elevations or depressions. No acute ischemic findings. Heart Score - Score History: Moderately Suspicious EKG: Normal Age: Less than 45 Risk Factors: 1-2 risk factors Troponin: Less than normal limit HEART Score Total: 2 Jennyfer - Jennyfer Situation: Demographics, MOA Background: Presenting Complaint, Relevant PMH, Meds, & Allergies Assessment: Vital Signs, Course and respsone to treatment, Exam Concerns, Patient/Family Expectation, Pertinant Lab Results, Outstanding Labs Recommendation: Barrier(s) to disposition, Recommendation based on pending studies, treatments, or consults Jennyfer Report Given to: Hospitalist Jennyfer Repor Time: 18:13 Attestation Statement - Attestation Attestation: Patient was seen with resident physician. I reviewed the history, physical, assessment and plan, and agree with the findings. I also personally evaluated this patient and had [id number] time with this patient. 5-year-old female presents emergency department with worsening history of chest pressure for the last several days. Patient states symptoms of gotten progressively worse. Ultimately prompting her visit today. Patient states the pressures a squeezing sensation and radiates to the left side of her chest from the central area. It is nonreproducible to palpation. She denies shortness of breath. She says the swelling her lower extremities is better than it usually is, she says she gets swelling because of her chronic renal disease. She said she had a variety of abnormal lab test done approximately one week ago. She said her renal doctor told her if they were not improved by today she would require admission. She said she just was not feeling well so she came in for evaluation treatment. On examination vital signs hypertensive, with mild tachycardia. ENT normal. Heart mild tachycardia regular rhythm slight murmur. Lungs clear. Abdomen soft nontender. Extremities unremarkable no appreciable swelling. Neurologically intact. Skin unremarkable. ED course we will do workup for cardiac chest pain. We will also check laboratory testing and likely admit the patient to the hospital for acute chest pain. Workup did not show acute injury. We will admit the patient for rule out. Hospitalist notified. I agree with the resident physician assessment and plan.
[2016-09-06] MEDS ORDERED: Aspirin 81 MG TAB.CHEW PO ONE (16:03)
[2016-09-06] MEDS ORDERED: Nitroglycerin 0.4 MG TAB.SUBL SL ONE (16:03)
[2016-09-06] MEDS ORDERED: Ondansetron 4 MG/2 ML VIAL IVP ONE (16:36)
[2016-09-06 16:39] LABS: Basophils % 0.5 %; Mean Platelet Volume 9.9 fL (9.4-12.4); Red Blood Count 2.22 M/mcL (3.82-4.97)
[2016-09-06 16:41] LABS: Eosinophils % 1.5 %; Hematocrit 21.7 % (35.3-44.9); Lymphocytes # 0.6 K/mcL (0.6-4.6); Lymphocytes % 29.6 %; Mean Corpuscular HGB Conc 34.1 g/dL (31.6-35.5); Mean Corpuscular Hemoglobin 33.3 pg (28.0-33.3); Mean Corpuscular Volume 97.7 fL (83.0-100.0); Monocytes # 0.2 K/mcL (0.0-1.3); Monocytes % 8.7 %; Neutrophils # 1.2 K/mcL (1.6-8.9); Platelet Count 100 K/mcL (140-400); Red Cell Distribution Width 13.9 % (11.5-14.5); Segmented Neutrophils % 59.7 %
[2016-09-06 16:44] LABS: Hemoglobin 7.4 g/dL (11.5-15.4)
[2016-09-06 16:47] LABS: Prothrombin Time 11.3 Seconds (9.4-12.1)
[2016-09-06 16:49] LABS: Activated Partial Thrombo Time 66.5 Seconds (26.0-36.0)
[2016-09-06 16:51] LABS: Calcium 7.7 mg/dL (8.6-10.8); Potassium 5.1 mEq/L (3.5-4.5)
[2016-09-06 17:04] LABS: Basophilic Stippling 1+ (Not Present); Platelet Estimate Slight Decrease (Normal)
[2016-09-06] MEDS ORDERED: *HR* OxyCODONE/APAP 5/325 TABLET PO ONE (18:07)
[2016-09-06] MEDS ORDERED: Naloxone 0.4 MG/ML INJ IVP PRN (20:49)
[2016-09-06] MEDS ORDERED: Dextrose Gel 15 GM PO PRN ×2 (21:59)
[2016-09-06] MEDS: ALPRAZolam 0.5 MG TABLET PO SCH (22:40)
[2016-09-06] MEDS: Subcutaneous Insulin Pump [T:Slim] MC SCH (22:41)
[2016-09-06] MEDS: *HR* HYDROcodone/Acet 5/325 mg TABLET PO PRN (23:44)
[2016-09-07] MEDS: hydrALAZINE 25 MG TABLET PO SCH ×4 (00:06→23:16)
[2016-09-07] MEDS: *HR* Dextrose 50 % in Water (Syg) 50 ML SYRINGE IVP PRN ×2 (01:10→13:44)
--- NOTE | 2016-09-07 01:19 | Internal Med History&Physical ---
Date of Encounter: 09/07/16 Time of Encounter: 23:00 Assessment and Plan (1) Chest pain Current visit: Yes Status: Acute 1 Experiencing chest pain or shortness of breath this a.m. which was nonradiating and relieved with nitroglycerin she has had hypertension as well as diabetes patient is a nonsmoker first cardiac troponin was 0 continuous cycle troponins 2 continuous cardiac monitoring 3 we will obtain cardiac echo 4. Nothing by mouth after midnight 5 nitroglycerin as needed for chest pain 6 cardiac stress test in a.m. Qualifiers: Chest pain type: unspecified Qualified Code(s): R07.9 - Chest pain, unspecified (2) HTN (hypertension) Current visit: Yes Status: Acute Presently controlled we will continue with home medications Qualifiers: Hypertension type: essential hypertension Qualified Code(s): I10 - Essential (primary) hypertension (3) Type I diabetes mellitus Current visit: No Status: Chronic Patient is a brittle diabetic diabetic. She is already had 2 episodes of hypoglycemia since arriving to the floor. We will discontinue her insulin pump. Closely monitor blood sugars every hour once stabilized we will monitor every 2. Qualifiers: Diabetes mellitus complication status: with kidney complications Diabetes mellitus complication detail: with nephropathy Qualified Code(s): E10.21 - Type 1 diabetes mellitus with diabetic nephropathy (4) CKD (chronic kidney disease), stage IV Current visit: No Status: Chronic 1 presently creatinine is 2.95 potassium is 5.1 continue to monitor creatinine We will consult nephrology Monitor intake and output daily weight Avoid nephrotoxins (5) Hypothyroidism Current visit: No Status: Chronic We will obtain TSH continue with Synthroid Qualifiers: Hypothyroidism type: unspecified Qualified Code(s): E03.9 - Hypothyroidism , unspecified (6) Iron deficiency anemia Current visit: No Status: Chronic 1 hemoglobin presently 7.4 we will continue with iron patient is receiving 2 patient is receiving Aranesp per nephrology will continue 3 we will type and screen Qualifiers: Iron deficiency anemia type: other iron deficiency Qualified Code(s): D50.8 - Other iron deficiency anemias (7) Pancytopenia Current visit: No Status: Chronic Patient has been experiencing pancytopenia we will monitor for any active bleeding patient has been typed and screened will continue to monitor CBC Nephrology has been consulted Consult hematology as needed (8) DVT prophylaxis Current visit: Yes Status: Acute SCDs patient has low platelets Internal Medicine - H&P: HPI Chief complaint: CP Admitted From: Emergency Dept Plans for Post Hospital Care: Home History of present illness: Ms. Elkins is a 41 year old female past medical history of chronic kidney disease 4 not on dialysis insulin-dependent diabetic iron deficiency anemia hypertension. According to the patient's U4 this morning experiencing left- sided chest pressure which was nonradiating associated symptoms of nausea and shortness of breath. There were no aggravating factors the pain was relieved after receiving 2 nitroglycerin in the ER She states she had a stress test and a cardiac catheter approximate 5 years ago that was negative she has been experiencing worsening renal disease since February. She also admits to experiencing increasing muscular and bone pain over the past few weeks. She also states that her potassium has been elevated over the past week her six color press operator has been monitoring and was going to admit the patient at the end of the week if the potassium do not improve. She presented to the ER with above complaints. In the ER patient's first cardiac troponin was 0 lab work revealed potassium of 5.5 creatinine is 2.95 which is slightly elevated BNP was 376, pancytopenia noted. Chest x-ray revealed mild pulmonary congestion. KG with no ischemic changes She has been admitted for further workup and evaluation. Presently the patient denies any chest pain or shortness of breath she does complain of achiness in her bones. Since arrival to the floor patient sugar has been labile ranging from 43-192 she is on a insulin pump. We will start home and continue to monitor sugars every hour her lung sounds are clear heart sounds S1 and S2 with no rubs clicks, murmurs noted the peel edema noted abdomen soft nontender. She did have some reproducible pain on palpation of chest wall. She is hemodynamically stable this time. I reviewed his case with who agrees with plan Past Med Surg Social Fam HX - Past Medical History Medical history: arthritis, CHF, diabetes, GERD, hypertension, kidney stones, renal disease, thyroid disease, other Psychiatric history: anxiety, depression - Past Surgical History Surgical History: cholecystectomy, hysterectomy, other - Social History Smoking Status: Never smoker Smokeless Tobacco Status: No Alcohol use: none Drug use: none - Family History Mother Hx Family Neurologic Disorders: Yes (fibromyglia) Father Hx Family Cardiac Disorders: Yes (stents, AL, cath, HTN, DVT) Hx Family Endocrine Disorder: Yes (diabetes) Hx Family Neurologic Disorders: Yes (stroke) Internal Medicine - H&P: Meds Rifaximin [Xifaxan] 550 mg PO AD 12/21/15 [History] Ergocalciferol (VITAMIN D2) [Drisdol (50,000 Unit)] 50,000 unit PO QWEEK #12 capsule 12/24/15 [Rx] Furosemide [Lasix] 20 mg PO BID tablet 12/24/15 [Rx] Levothyroxine [Synthroid] 100 mcg PO 0630 tablet 12/24/15 [Rx] amLODIPine [Norvasc] 10 mg PO DAILY #30 tablet 12/24/15 [Rx] hydrALAZINE [HydrALAZINE] 50 mg PO Q8HR #90 tablet 12/24/15 [Rx] ALPRAZolam [Xanax 0.5 MG Tablet] 0.5 mg PO TID 05/22/16 [History] Cyanocobalamin (B-12) [Vitamin B12] 1,000 mcg IM QMONTH 05/22/16 [History] Folic Acid 1 mg PO DAILY #0 05/22/16 [History] Hydrocodone/Acetaminophen [[place] 5-325 Tablet] 1 tab PO Q6H PRN 05/22/16 [ History] Lipase/Protease/Amylase [Creon Dr 6,000 Units Capsule] 3 each PO TIDWM 05/22/16 [History] SUMAtriptan Succinate [Imitrex] 100 mg PO DAILY PRN 05/22/16 [History] Calcitriol 0.5 mcg PO DAILY 09/06/16 [History] Calcium Acetate [Phos-LO] 667 mg PO TIDWM 09/06/16 [History] CloNIDine Patch [Catapres-TTS] 0.6 mg TD QWEEK 09/06/16 [History] Diltiazem CD (24hr) [Cardizem CD] 120 mg PO DAILY 09/06/16 [History] Sodium Bicarbonate 650 mg PO TID 09/06/16 [History] Subcutaneous Insulin Pump [T:Slim] 1 each MC ACHS 09/06/16 [History] Allergies cephalexin [From Keflex] Allergy (Verified 03/19/16 11:11) Hives patient states she can take benadryl with this ciprofloxacin [From Cipro] Allergy (Verified 03/19/16 11:11) Hives patient states she can take benadryl with this levofloxacin [From Levaquin] Allergy (Verified 03/19/16 11:11) Difficulty Breathing ofloxacin Allergy (Verified 03/19/16 11:11) Rash patient states she can take benadryl with this penicillin V Allergy (Verified 03/19/16 11:11) Hives patient states she can take benadryl with this sulfamethoxazole [From Bactrim] Allergy (Verified 03/19/16 11:11) Hives patient states she can take benadryl with this trimethoprim [From Bactrim] Allergy (Verified 03/19/16 11:11) Hives patient states she can take benadryl with this All Systems PM: A 10-system review of systems was performed and is negative for pertinent findings except as documented above in the HPI. - Constitutional Constitutional: fatigue, weakness, no chills, no fever(s), no night sweats - EENT Eyes: no change in vision, no discharge, no pain, no photophobia Nose, mouth and throat: no dysphagia, no nasal discharge, no neck pain, no sore throat - Cardiovascular Cardiovascular ROS IM: chest pain, dyspnea, no diaphoresis, no lightheadedness, no palpitations, no syncope - Respiratory Respiratory: no cough, no dyspnea, no wheezing, no excessive phlegm production - Gastrointestinal Gastrointestinal: no abdominal pain, no diarrhea, no hematemesis, no hematochezia, no melena, no nausea, no vomiting - Musculoskeletal Musculoskeletal ROS IM: arthralgias, muscle cramps, myalgias - Integumentary Integumentary IM: no rash, no unusual bruising - Neurological Neurological ROS: no confusion, no convulsions, no focal weakness, no numbness, no tingling, no tremor(s) - Hematologic/Lymphatic Hematologic/Lymphatic: no easy bruising - Constitutional Vitals: Temp Pulse Resp BP Pulse Ox 98 F 73 18 163/88 98 09/07/16 00:00 09/07/16 00:00 09/07/16 00:00 09/07/16 00:00 09/07/16 00:00 General appearance: Present: A&O X 3, answers questions appropriately - Head Head exam: Present: atraumatic, normocephalic - Eye Eye exam: Present: PERRL, conjuntiva pink, sclera anicteric Pupils: Present: PERRL - Neck Neck exam general surgery: Present: supple, trachea midline. Absent: lymphadenopathy - Respiratory Respiratory exam: Present: CTAB. Absent: accessory muscle use, rales, rhonchi, wheezes - Cardiovascular Cardiovascular exam: Present: RRR, +S1, +S2. Absent: diastolic murmur, gallop, rubs, systolic murmur - GI/Abdominal GI/Abdominal exam: Present: normal bowel sounds, soft, no peritoneal signs. Absent: distended, tenderness - Extremities Exam Extremities exam: Present: warm, radial pulses palpable and symetrical. Absent : calf tenderness, cyanotic, pedal edema - Neurological Exam Neurological exam: Present: CN II-XII intact, oriented X3, no focal deficits. Absent: pronater drift, facial droop, speech deficit - Skin Skin exam: Present: dry, intact Internal Med - H&P Results - Labs CBC & Chem 7: 09/06/16 16:30 09/06/16 16:30 Labs: Cardiac Enzymes 09/06/16 Range/Units 23:00 Troponin I 0.01 (0-0.03) ng/mL - EKG Data EKG shows normal: sinus rhythm - Diagnostic Studies Other Images Additional comments: Chest X-Ray 09/06/16 16:03 IMPRESSION: Pulmonary vascular congestion. D/ / Bryant Jones MD / Bryant Jones MD Interpreting Provider: Bryant Jones MD
[2016-09-07] MEDS ORDERED: Furosemide 20 MG/2 ML VIAL IVP ONE (01:25)
[2016-09-07] MEDS ORDERED: D5% in Water 1,000 ML IVC SCH (01:30)
[2016-09-07] MEDS ORDERED: *HR* HYDROmorphone (PF) 1 MG/ML SYRINGE IVP ONE (01:57)
[2016-09-07 05:14] LABS: Basophils % 0.7 %; Eosinophils # 0.1 K/mcL (0.0-0.6); Eosinophils % 2.2 %; Hemoglobin 7.8 g/dL (11.5-15.4); Immature Granulocytes % 0.4 % (0-4); Immature Platelets 3.2 % (1.1-6.1); Lymphocytes # 0.6 K/mcL (0.6-4.6); Lymphocytes % 21.7 %; Mean Corpuscular HGB Conc 33.9 g/dL (31.6-35.5); Mean Corpuscular Hemoglobin 33.2 pg (28.0-33.3); Mean Corpuscular Volume 97.9 fL (83.0-100.0); Mean Platelet Volume 10.7 fL (9.4-12.4); Monocytes # 0.2 K/mcL (0.0-1.3); Monocytes % 7.6 %; Neutrophils # 1.9 K/mcL (1.6-8.9); Platelet Count 114 K/mcL (140-400); Red Blood Count 2.35 M/mcL (3.82-4.97); Red Cell Distribution Width 13.9 % (11.5-14.5); Segmented Neutrophils % 67.4 %
[2016-09-07 05:25] LABS: Calcium 7.6 mg/dL (8.6-10.8); Potassium 5.3 mEq/L (3.5-4.5)
[2016-09-07] MEDS ORDERED: Regadenoson 0.4 MG/5 ML SYRINGE IVP ONE (06:02)
[2016-09-07] MEDS: *HR* HYDROcodone/Acet 5/325 mg TABLET PO PRN ×2 (06:12→22:35)
[2016-09-07] MEDS ORDERED: Insulin LISPRO 300 UNITS/3 ML VIAL SQ SCH ×2 (07:30→21:00)
[2016-09-07] MEDS: Regadenoson 0.4 MG/5 ML SYRINGE IVP ONE ×2 (07:48→08:52)
[2016-09-07 08:31] LABS: Basophils % 0.3 %; Hematocrit 22.5 % (35.3-44.9); Hemoglobin 7.5 g/dL (11.5-15.4); Immature Granulocytes % 0.3 % (0-4); Lymphocytes # 0.5 K/mcL (0.6-4.6); Mean Corpuscular HGB Conc 33.3 g/dL (31.6-35.5); Mean Corpuscular Hemoglobin 33.2 pg (28.0-33.3); Mean Corpuscular Volume 99.6 fL (83.0-100.0); Mean Platelet Volume 10.6 fL (9.4-12.4); Monocytes # 0.2 K/mcL (0.0-1.3); Monocytes % 6.3 %; Neutrophils # 2.2 K/mcL (1.6-8.9); Red Blood Count 2.26 M/mcL (3.82-4.97); Segmented Neutrophils % 75.1 %
[2016-09-07 08:32] LABS: Platelet Count 93 K/mcL (140-400)
[2016-09-07 08:33] LABS: VBG HCO3 16.7 mEq/L (21-27); VBG PH 7.25 pH Units (7.32-7.42)
[2016-09-07] MEDS: Furosemide 20 MG TABLET PO SCH ×2 (08:36→17:42)
[2016-09-07] MEDS: Calcium Acetate 667 MG CAPSULE PO SCH ×3 (08:36→17:42)
[2016-09-07 08:41] LABS: Beta-Hydroxybutyric Acid > 2.00 mmol/L (0.02-0.27)
[2016-09-07 08:44] LABS: BUN/Creatinine Ratio 19 (6-26); Blood Urea Nitrogen 60 mg/dL (7-20); Calcium 7.4 mg/dL (8.6-10.8); Carbon Dioxide 17 mEq/L (19-29); Chloride 101 mEq/L (98-109); Glucose 442 mg/dL (70-99); Osmolality,Calculated 308 (280-300); Potassium 6.1 mEq/L (3.5-4.5); Sodium 131 mEq/L (136-145); eGFR For African Americans 20 (> 60); eGFR For Non-African Americans 17 (> 60)
--- NOTE | 2016-09-07 08:44 | Internal Med Progress Note ---
Date of Encounter: 09/07/16 Time of Encounter: 08:41 - Assessment and plan (1) Hyperglycemia Current Visit: Yes Status: Acute Assessment and plan: Patient was noted to have episodes of hypoglycemia after admission and has been started previously on dextrose containing fluids after which she rapidly developed hyperglycemia. Repeat BMP showed no evidence of increased anion gap however patient does have low pH, elevated blood sugars and low bicarbonate levels. She is being transferred to stepdown unit at this time for IV insulin infusion along with frequent Accu-Chek blood glucose monitoring. Hydration with normal saline. Hold patient's continuous insulin pump at this time. Keep nothing by mouth for now. (2) Chest pain Current Visit: Yes Status: Acute Assessment and plan: Patient presents with retrosternal chest pain, to rule out ACS due to significant family history, underlying diabetes and chronic kidney disease. Continue telemetry, serial troponins so far negative. We will get echocardiogram and nuclear stress test when stable. Continue aspirin, statin. Qualifiers: Chest pain type: precordial pain Qualified Code(s): R07.2 - Precordial pain (3) Type I diabetes mellitus Current Visit: Yes Status: Chronic Assessment and plan: Continue to monitor blood sugars closely. Patient is noted to have had multiple previous hospitalizations with hyperglycemia and DKA. Qualifiers: Diabetes mellitus complication status: with kidney complications Diabetes mellitus complication detail: with nephropathy Qualified Code(s): E10.21 - Type 1 diabetes mellitus with diabetic nephropathy (4) Chronic kidney disease Current Visit: Yes Status: Chronic Assessment and plan: Patient follows with nephrology as outpatient for chronic kidney disease. Serum creatinine noted to be at baseline. Continue phosphate binders, sodium bicarbonate and multivitamins. Nephrology consult. Qualifiers: Chronic kidney disease stage: stage 4 (severe) Qualified Code(s): N18.4 - Chronic kidney disease, stage 4 (severe) (5) Pancytopenia Current Visit: Yes Status: Chronic Assessment and plan: Chronic. Unclear etiology. Currently at baseline, monitor hemoglobin closely. Avoid medical anticoagulants. (6) HTN (hypertension) Current Visit: Yes Status: Chronic Assessment and plan: Patient is noted to have difficulty controlled hypertension and is noted to be on multiple antihypertensives. Resume home medications and monitor blood pressure closely. Qualifiers: Hypertension type: essential hypertension Qualified Code(s): I10 - Essential (primary) hypertension (7) Secondary hyperparathyroidism of renal origin Current Visit: Yes Status: Chronic (8) Hypothyroidism Current Visit: Yes Status: Chronic Assessment and plan: Continue levothyroxine. Qualifiers: Hypothyroidism type: unspecified Qualified Code(s): E03.9 - Hypothyroidism , unspecified (9) Pancreatic insufficiency Current Visit: Yes Status: Chronic Assessment and plan: Noted to have a history of bariatric surgery, small bowel bacterial overgrowth and pancreatic insufficiency with intermittent diarrhea. Will resume pancreatic enzyme supplements when able to tolerate diet. - Subjective Interval history: Feels fatigued and tired; reports burning in her stomach and muscles, feels like she is going into DKA; improved chest pain; also reports difficulty breathing and abdominal pain; - Constitutional Vitals: Temp Pulse Resp BP Pulse Ox 97.6 F 88 16 133/73 96 09/07/16 08:18 09/07/16 08:18 09/07/16 08:18 09/07/16 08:18 09/07/16 08:18 General appearance: Present: A&O X 3, answers questions appropriately - Respiratory Respiratory exam: Present: CTAB. Absent: accessory muscle use, rales, rhonchi, wheezes - Cardiovascular Cardiovascular exam: Present: RRR, +S1, +S2. Absent: diastolic murmur, gallop, rubs, systolic murmur - GI/Abdominal GI/Abdominal exam: Present: normal bowel sounds, soft (epigastric and LUQ tenderness with no guarding/rigidity), no peritoneal signs. Absent: distended, tenderness - Extremities Exam Extremities exam: Present: full ROM, warm, radial pulses palpable and symetrical. Absent: calf tenderness, cyanotic, pedal edema - Neurological Exam Neurological exam: Present: CN II-XII intact, oriented X3, no focal deficits. Absent: pronater drift, facial droop, speech deficit - Skin Skin exam: Present: dry, intact, pallor Internal Medicine: Result - Labs CBC & Chem 7: 09/08/16 04:30 09/08/16 04:30 Labs: Short CBC 09/07/16 09/07/16 Range/Units 04:54 08:06 WBC 2.8 L 2.9 L (4.3-11.1) K/mcL Hgb 7.8 L 7.5 L (11.5-15.4) g/dL Hct 23.0 L 22.5 L (35.3-44.9) % Plt Count 114 L 93 L (140-400) K/mcL Neutrophils # 1.9 2.2 (1.6-8.9) K/mcL BMP 09/07/16 04:54 Sodium 133 L Potassium 5.3 H Chloride 102 Carbon Dioxide 21 BUN 55 H Creatinine 2.73 H Glucose 148 H Calcium 7.6 L Cardiac Enzymes 09/06/16 09/07/16 Range/Units 23:00 04:54 Troponin I 0.01 0.02 (0-0.03) ng/mL - ABG Interpretation ABG results: PT/INR, D-dimer PT 11.3 Seconds (9.4-12.1) 09/06/16 16:30 Consult Discharge Plan - Plan Referrals: Kim Bales CNP [Partnered Physician] - 09/11/16 10:40 am Marko Hylton Jr, MD [Primary Care Provider] -
[2016-09-07] MEDS: amLODIPine 5 MG TABLET PO SCH (08:52)
[2016-09-07] MEDS: Folic Acid 1 MG TABLET PO SCH (08:52)
[2016-09-07] MEDS: Diltiazem CD (24hr) 120 MG CAPSULE PO SCH (08:52)
[2016-09-07] MEDS: ALPRAZolam 0.5 MG TABLET PO SCH ×3 (08:53→22:31)
[2016-09-07] MEDS ORDERED: 0.9 % Sodium Chloride 1,000 ML IVC SCH (09:00)
[2016-09-07] MEDS ORDERED: 0.9 % Sodium Chloride 1,000 ML ONE (09:01)
[2016-09-07] MEDS: Subcutaneous Insulin Pump [T:Slim] MC SCH (09:06)
[2016-09-07] MEDS ORDERED: *HR* HYDROcodone/Acet 5/325 mg TABLET PO PRN (09:41)
[2016-09-07] MEDS ORDERED: Insulin Human Regular 100 UNIT in 0.9 % Sodium Chloride 100 ML IVC SCH (09:45)
[2016-09-07] MEDS: CloNIDine Patch 0.3 MG PATCH (WEEKLY) TD SCH (11:37)
[2016-09-07] MEDS: *HR* Morphine 2 MG/ML SYRINGE IVP PRN ×2 (12:38→19:36)
[2016-09-07] MEDS: *HR* Promethazine 25 MG/ML VIAL IVP PRN (12:38)
[2016-09-07] MEDS ORDERED: D5% in 0.45% NACL 1,000 ML IVC SCH (13:00)
[2016-09-07 14:12] LABS: Calcium 7.3 mg/dL (8.6-10.8)
[2016-09-07 14:13] LABS: Potassium 4.5 mEq/L (3.5-4.5)
--- NOTE | 2016-09-07 17:07 | Nephrology Consult Note ---
Date of Encounter: 09/07/16 Time of Encounter: 17:05 Assessment and Plan (1) Acute kidney injury superimposed on chronic kidney disease Current Visit: Yes Status: Acute Patient with mild creatinine elevation, but overall she seems to have a progression of her underlying CKD. Agree with IV fluids and recommend avoiding nephrotoxic agents. Of concern is her complaint of a metallic taste to food which could be a sign of uremia. this would be slightly unusual with an eGFR >15, but not impossible. Will check 24 hour urine for creatinine and urea. (2) Hyperkalemia Current Visit: No Status: Acute Her potassium is improved with insulin use and hydration. Continue to monitor. Medical management for now. (3) Hyperparathyroidism Current Visit: Yes Status: Acute Patient on activated and inactivated vitamin D. Monitor for improvement. (4) Chest pain Current Visit: Yes Status: Acute Per primary team. ?early DKA. Qualifiers: Chest pain type: unspecified Qualified Code(s): R07.9 - Chest pain, unspecified (5) Diabetes type I Current Visit: No Status: Acute Per primary team. Patient on an insulin drip. Patient possibly with early DKA as evidenced by acidosis and hyperkalemia that improved with an insulin gtt and hydration. Qualifiers: Diabetes mellitus complication status: with kidney complications Diabetes mellitus complication detail: with chronic kidney disease Chronic kidney disease stage: stage 3 (moderate) Qualified Code(s): E10.22 - Type 1 diabetes mellitus with diabetic chronic kidney disease; N18.3 - Chronic kidney disease, stage 3 (moderate) (6) HTN (hypertension) Current Visit: Yes Status: Acute Continue home medications (except nephrotoxins). Titrate antihypertensive medications as needed. Qualifiers: Hypertension type: essential hypertension Qualified Code(s): I10 - Essential (primary) hypertension History of Present Illness - Reason for Consult Consult date: 09/07/16 Acute Kidney Injury - Chief Complaint TORREY - History of Present Illness Ms. Elkins is a 41 yo woman followed by Dr. Rodas for CKD Stage IV who presents for the evaluation of chest pain. Nephrology was consulted to for TORREY and hyperkalemia. Patient reports she is feeling slightly better with less chest pain, but some dyspnea. She reports she has not been feeling well for about a week and over the last week has had problems with nausea and a few days prior to admission she also describes a metallic taste to food. Past Med Surg Social Fam HX - Past Medical History Medical history: arthritis, CHF, diabetes, GERD, hypertension, kidney stones, renal disease, thyroid disease, other Psychiatric history: anxiety, depression - Past Surgical History Surgical History: cholecystectomy, hysterectomy, other - Social History Smoking Status: Never smoker Smokeless Tobacco Status: No Alcohol use: none Drug use: none - Family History Mother Hx Family Neurologic Disorders: Yes (fibromyglia) Father Hx Family Cardiac Disorders: Yes (stents, CO, cath, HTN, DVT) Hx Family Endocrine Disorder: Yes (diabetes) Hx Family Neurologic Disorders: Yes (stroke) Medications and Allergies Rifaximin [Xifaxan] 550 mg PO AD 12/21/15 [History] Ergocalciferol (VITAMIN D2) [Drisdol (50,000 Unit)] 50,000 unit PO QWEEK #12 capsule 12/24/15 [Rx] Furosemide [Lasix] 20 mg PO BID tablet 12/24/15 [Rx] Levothyroxine [Synthroid] 100 mcg PO 0630 tablet 12/24/15 [Rx] amLODIPine [Norvasc] 10 mg PO DAILY #30 tablet 12/24/15 [Rx] hydrALAZINE [HydrALAZINE] 50 mg PO Q8HR #90 tablet 12/24/15 [Rx] ALPRAZolam [Xanax 0.5 MG Tablet] 0.5 mg PO TID 05/22/16 [History] Cyanocobalamin (B-12) [Vitamin B12] 1,000 mcg IM QMONTH 05/22/16 [History] Folic Acid 1 mg PO DAILY #0 05/22/16 [History] Hydrocodone/Acetaminophen [[place] 5-325 Tablet] 1 tab PO Q6H PRN 05/22/16 [ History] Lipase/Protease/Amylase [Creon Dr 6,000 Units Capsule] 3 each PO TIDWM 05/22/16 [History] SUMAtriptan Succinate [Imitrex] 100 mg PO DAILY PRN 05/22/16 [History] Calcitriol 0.5 mcg PO DAILY 09/06/16 [History] Calcium Acetate [Phos-LO] 667 mg PO TIDWM 09/06/16 [History] CloNIDine Patch [Catapres-TTS] 0.6 mg TD QWEEK 09/06/16 [History] Diltiazem CD (24hr) [Cardizem CD] 120 mg PO DAILY 09/06/16 [History] Sodium Bicarbonate 650 mg PO TID 09/06/16 [History] Subcutaneous Insulin Pump [T:Slim] [address] [facility] 09/06/16 [History] Allergies cephalexin [From Keflex] Allergy (Verified 03/19/16 11:11) Hives patient states she can take benadryl with this ciprofloxacin [From Cipro] Allergy (Verified 03/19/16 11:11) Hives patient states she can take benadryl with this levofloxacin [From Levaquin] Allergy (Verified 03/19/16 11:11) Difficulty Breathing ofloxacin Allergy (Verified 03/19/16 11:11) Rash patient states she can take benadryl with this penicillin V Allergy (Verified 03/19/16 11:11) Hives patient states she can take benadryl with this sulfamethoxazole [From Bactrim] Allergy (Verified 03/19/16 11:11) Hives patient states she can take benadryl with this trimethoprim [From Bactrim] Allergy (Verified 03/19/16 11:11) Hives patient states she can take benadryl with this Review of Systems All Systems: reviewed and no additional remarkable complaints except as stated ( as documeneted in the HPI.) Exam - Vital Signs Vital signs: Initial Vital Signs Temp Pulse Resp BP Pulse Ox 97.9 F 76 14 192/99 99 09/06/16 15:43 09/06/16 15:43 09/06/16 15:43 09/06/16 15:43 09/06/16 15:43 Vital Signs - Last 8 Hours Temp Pulse Resp BP Pulse Ox 09/07/16 16:33 98.0 F 66 16 97 09/07/16 16:07 68 164/82 97 09/07/16 11:24 74 14 150/74 97 09/07/16 10:28 98.3 F 77 16 147/85 95 Intake and Output 09/07/16 09/07/16 09/07/16 07:59 15:59 23:59 Intake Total 201 / 201 621.4 / 621.4 2.3 / 2.3 Output Total 900 / 900 Balance 201 / 201 -278.6 / -278.6 2.3 / 2.3 Intake: IV Fluids 201 / 201 621.4 / 621.4 2.3 / 2.3 0.9 % Sodium Chloride 1, 600 / 600 000 ML @ 100 mls/hr IVC . Q10H KATIE Rx#:[id number] Dextrose 5% 1,000 ML @ 50 201 / 201 mls/hr IVC .Q20H KATIE Rx# :[id number] HumuLIN R 100 UNIT In 0. 21.4 / 21.4 2.3 / 2.3 9 % Sodium Chloride 100 ML @ 10 UNIT/HR 10.1 mls/ hr IVC CONT KATIE Rx#: [id number] Oral 0 / 0 Output: Urine 900 / 900 Other: Meal Lunch Percent of Meal Consumed 0% # Voids 1 Weight 87.5 kg Blood Glucose* 390 83 138 Patient Weight 09/07/16 23:59 Weight 87.5 kg - General Appearance General appearance: well-developed, well-nourished EENT: ATNC Neck: supple Respiratory: clear Cardiology: no edema, regular rate, regular rhythm Gastrointestinal: normoactive bowel sounds, no tenderness Integumentary: warm and dry Neurologic: alert and oriented x3 Musculoskeletal: no cyanosis Psychiatric: mood/affect appropriate Results - Lab Results 09/07/16 08:06 09/07/16 13:30 Most recent lab results Calcium 7.3 mg/dL (8.6-10.8) L 09/07/16 13:30 Consult Discharge Plan - Plan Referrals: Kim Bales CNP [Partnered Physician] - 09/11/16 10:40 am Marko Hylton Jr, MD [Primary Care Provider] -
[2016-09-07] MEDS ORDERED: Insulin DETEMIR 100 UNIT/ML X5UNITS SQ ONE (17:30)
[2016-09-07] MEDS: Insulin LISPRO 300 UNITS/3 ML VIAL SQ SCH (22:34)
[2016-09-08] MEDS: *HR* Morphine 2 MG/ML SYRINGE IVP PRN ×4 (01:48→20:43)
[2016-09-08] MEDS: *HR* Promethazine 25 MG/ML VIAL IVP PRN ×2 (04:12→14:34)
[2016-09-08] MEDS: *HR* Dextrose 50 % in Water (Syg) 50 ML SYRINGE IVP PRN ×2 (04:55→09:07)
[2016-09-08 04:58] LABS: Basophils % 0.4 %; Eosinophils # 0.1 K/mcL (0.0-0.6); Eosinophils % 1.9 %; Hemoglobin 7.4 g/dL (11.5-15.4); Lymphocytes # 1.2 K/mcL (0.6-4.6); Lymphocytes % 44.1 %; Mean Corpuscular HGB Conc 33.6 g/dL (31.6-35.5); Mean Corpuscular Hemoglobin 33.2 pg (28.0-33.3); Mean Corpuscular Volume 98.7 fL (83.0-100.0); Mean Platelet Volume 10.9 fL (9.4-12.4); Monocytes # 0.4 K/mcL (0.0-1.3); Monocytes % 13.7 %; Neutrophils # 1.1 K/mcL (1.6-8.9); Platelet Count 104 K/mcL (140-400); Red Blood Count 2.23 M/mcL (3.82-4.97); Red Cell Distribution Width 14.2 % (11.5-14.5); Segmented Neutrophils % 39.9 %
[2016-09-08 05:10] LABS: Ionized Calcium 1.03 mmol/L (1.15-1.35)
[2016-09-08 05:22] LABS: Albumin 2.7 g/dL (3.5-5.0); Calcium 7.6 mg/dL (8.6-10.8); Magnesium 1.8 mg/dL (1.6-2.6); Phosphorous 5.6 mg/dL (2.3-4.7); Potassium 4.3 mEq/L (3.5-4.5)
[2016-09-08 05:56] LABS: Folate 6.7 ng/mL (7.0-31.4)
[2016-09-08] MEDS ORDERED: Regadenoson 0.4 MG/5 ML SYRINGE IVP ONE (06:46)
[2016-09-08] MEDS: Insulin LISPRO 300 UNITS/3 ML VIAL SQ SCH ×4 (09:08→20:40)
--- NOTE | 2016-09-08 10:01 | Nuclear Medicine Stress Report ---
Regadenoson Nuclear 2 Name: Iman Elkins Date of Study: 09/07/2016 Date: 1975 Ht: 69.0 in Medical Record#: [id number] Age: 41 Wt: 185.0 lb Gender: Female Order #: [id number] Location: [facility] Room: [facility] Supervising Provider: Sanju Mays CNP Reading Physician: Tello Lam DO, [facility], [facility] Ordering Physician: Vianca Vázquez MD Primary Care Physician: Marko Hylton MD Stress Technologist: Gaye De Leon RRT Freight Agent: Patrice Saleem Indications: Chest Pain Impression: Pharmacologic stress ECG is negative for ischemia at level of heart rate achieved. Gated EF = 63%. Small size, mild to moderate intensity, reversible basal to mid anterior reduction in perfusion possibly due to ischemia. Dr. Vázquez notified via [employer]. History: Hypertension Diabetes Stress Test Summary: Stress Test Type: Pharmacologic Regadenoson 0.4mg/5ml given IV Baseline Information: Initial Heart Rate: 67 Blood Pressure: 146/90 Stress Information: Test Terminated Due to (primary): As per protocol Maximum Blood Pressure: 130/78 Maximum Heart Rate: 86 Percent Maximum Heart Rate Achieved: 48 Double Product: [id number] METS Reached: 1 Symptoms: No chest symptoms Nuclear Summary: SPECT myocardial perfusion imaging using Tc99m Sestamibi given intravenously was performed at rest and following cardiac stress testing. The resting images were obtained following initial dose of 11.6 mCi. Following stress an additional dose of 34.1 mCi was given at peak exercise or 30 seconds post regadenoson infusion. Medication Given: Time Medication Dose Units Route Findings: Stress Note * Resting ECG demonstrated normal sinus rhythm. * No baseline arrhythmias were noted. * Pharmacologic stress ECG is negative for ischemia at level of heart rate achieved. * No arrhythmias were noted during stress. * Patient had no chest pain during stress. * Normal hemodynamic responses to pharmacologic stress. Study Quality * Study quality is average. Gated EF % * Gated EF = 63%. Left Ventricle * LVEDV = 131 mL. * Normal wall motion. Inferior Perfusion Rest * The basal inferior segment shows a mild reduction in perfusion. Anterior Perfusion Stress * Basal to mid anterior and anterior mild to moderate reduction in perfusion. TID * No evidence of transient ischemic dilatation. TID ratio = 1.27. Lung Uptake * There is no evidence of increase lung uptake. Updated by Tello Lam DO, PACO, BOLA, FASAMY on 09/08/2016 9:55:14 AM electronically signed on 09/08/2016 9:56:45 AM with status of Final
[2016-09-08] MEDS: Folic Acid 1 MG TABLET PO SCH (10:02)
[2016-09-08] MEDS: hydrALAZINE 25 MG TABLET PO SCH ×2 (10:03→15:36)
[2016-09-08] MEDS: ALPRAZolam 0.5 MG TABLET PO SCH ×3 (10:03→20:44)
[2016-09-08] MEDS: Calcium Acetate 667 MG CAPSULE PO SCH ×3 (10:03→17:30)
[2016-09-08] MEDS: Diltiazem CD (24hr) 120 MG CAPSULE PO SCH (10:03)
[2016-09-08] MEDS: Furosemide 20 MG TABLET PO SCH ×2 (10:03→17:30)
[2016-09-08] MEDS: amLODIPine 5 MG TABLET PO SCH (10:03)
[2016-09-08] MEDS: Cyanocobalamin (B-12) 1,000 MCG/ML VIAL IM SCH (10:04)
--- NOTE | 2016-09-08 12:30 | Electrocardiograph Report ---
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
--- NOTE | 2016-09-08 12:37 | Nephrology Progress Note ---
Date of Encounter: 09/09/16 Time of Encounter: 10:00 - Assessment and Plan (1) Acute kidney injury superimposed on chronic kidney disease Current Visit: Yes Status: Acute Pending 24hr urine to ensure that the serum Cr is accurate. In some cases a 24hr for CrCl is more accurate, and if her CrCl is in the ESRD range of <15, then would start HD during this admission. (2) CKD (chronic kidney disease), stage IV Current Visit: No Status: Chronic (3) Hyperkalemia Current Visit: No Status: Resolved (4) Iron deficiency anemia Current Visit: No Status: Chronic Qualifiers: Iron deficiency anemia type: other iron deficiency Qualified Code(s): D50.8 - Other iron deficiency anemias (5) Nephrotic syndrome Current Visit: No Status: Chronic (6) Secondary hyperparathyroidism of renal origin Current Visit: Yes Status: Chronic Acutely worsened on chronic SHPT, now with bone pain. 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 (7) DKA (diabetic ketoacidoses) Current Visit: No Status: Acute Qualifiers: Diabetes mellitus type: type 1 Diabetes mellitus complication detail: without coma Qualified Code(s): E10.10 - Type 1 diabetes mellitus with ketoacidosis without coma (8) HTN (hypertension) Current Visit: Yes Status: Chronic Continue the high dose Clonidine and home Agents for now. Qualifiers: Hypertension type: essential hypertension Qualified Code(s): I10 - Essential (primary) hypertension Subjective Principal diagnosis: TORREY on CKD, N/V, Anemia Interval history: Pt was s/e. She did affirmed having recent ShOB, ongoing acute on chronic nausea. Her was at bedside. She has been having very high and low BG, when her Insulin pump was removed at admission. Objective - Vital Signs Vital signs: Vital Signs Temp Pulse Resp BP Pulse Ox 09/08/16 11:55 97.8 F 72 18 118/64 98 09/08/16 09:15 97.6 F 71 16 166/78 98 09/08/16 03:24 97.5 F L 60 16 128/74 97 09/07/16 23:08 97.9 F 68 16 170/92 96 09/07/16 19:00 98.0 F 73 16 161/79 97 09/07/16 16:33 98.0 F 66 16 97 09/07/16 16:07 68 164/82 97 Intake and Output 09/07/16 09/08/16 09/08/16 23:59 07:59 15:59 Intake Total 676.3 / 676.3 800 / 800 0 / 0 Output Total 1000 / 1000 Balance 676.3 / 676.3 800 / 800 -1000 / -1000 Intake: IV Fluids 556.3 / 556.3 D5% And 0.45% Nacl 1000 550 / 550 Ml Bag 1,000 ML @ 100 mls /hr IVC .Q10H KATIE Rx#: [id number] HumuLIN R 100 UNIT In 0. 6.3 / 6.3 9 % Sodium Chloride 100 ML @ 10 UNIT/HR 10.1 mls/ hr IVC CONT KATIE Rx#: [id number] Oral 120 / 120 800 / 800 0 / 0 Output: Urine 1000 / 1000 Other: Meal Dinner Percent of Meal Consumed 100% Weight 89.1 kg Blood Glucose* 212 87 72 Patient Weight 09/08/16 23:59 Weight 89.1 kg - General Appearance General appearance: Present: well-developed, well-nourished, chronically ill, frail EENT: Present: ATNC, PERRL, mucous membranes dry Neck: Present: supple Respiratory: Present: clear Cardiology: Present: edema, regular rate, regular rhythm, normal S1, normal S2 Gastrointestinal: Present: normoactive bowel sounds, no tenderness, no guarding Integumentary: Present: warm and dry Neurologic: Present: no focal deficit, no asterixis, alert and oriented x3 Musculoskeletal: Present: no deformities, no erythema, no cyanosis Psychiatric: Present: mood/affect appropriate, cooperative - Lab 09/09/16 04:10 09/09/16 04:10 Most recent lab results Calcium 7.6 mg/dL (8.6-10.8) L 09/08/16 04:30 Phosphorus 5.6 mg/dL (2.3-4.7) H 09/08/16 04:30 Magnesium 1.8 mg/dL (1.6-2.6) 09/08/16 04:30 - VTE Documentation of Mechanical Device: Graduated compression elastic hosiery Consult Discharge Plan - Plan Referrals: Kim Bales CNP [Partnered Physician] - 09/11/16 10:40 am Marko Hylton Jr, MD [Primary Care Provider] -
--- NOTE | 2016-09-08 14:02 | Internal Med Progress Note ---
Date of Encounter: 09/08/16 Time of Encounter: 13:40 - Assessment and plan (1) Hyperglycemia Current Visit: Yes Status: Acute Assessment and plan: Patient was noted to have episodes of hypoglycemia after admission and has been started previously on dextrose containing fluids after which she rapidly developed hyperglycemia. She briefly received IV insulin drip. Patient is currently off insulin drip and IV fluids, able to tolerate oral diet, improved anionic gap and metabolic acidosis. Patient only received 1 dose of 20 units Levemir yesterday but she is noted to have hypoglycemic episodes this morning. Will hold off on basal insulin at this time and use low-dose sliding scale insulin. Continue to monitor blood sugars closely. (2) Type I diabetes mellitus Current Visit: Yes Status: Chronic Assessment and plan: Continue to monitor blood sugars closely. Patient is noted to have had multiple previous hospitalizations with hyperglycemia and DKA. Qualifiers: Diabetes mellitus complication status: with kidney complications Diabetes mellitus complication detail: with nephropathy Qualified Code(s): E10.21 - Type 1 diabetes mellitus with diabetic nephropathy (3) Chest pain Current Visit: Yes Status: Acute Assessment and plan: Patient presents with retrosternal chest pain, to rule out ACS due to significant family history, underlying diabetes and chronic kidney disease. Currently chest pain-free. Continue telemetry, serial troponins so far negative. Echocardiogram shows preserved ejection fraction, mild concentric LVH , mild left-ventricular diastolic dysfunction, moderate left atrial dilation. Nuclear stress test shows small size, mild to moderate intensity, reversible basal to mid anterior reduction in perfusion, likely due to ischemia. Cardiology consult. Patient may not be a likely candidate for cardiac catheterization at this time due to worsening renal failure. We will get echocardiogram and nuclear stress test when stable. Continue aspirin, statin. Qualifiers: Chest pain type: precordial pain Qualified Code(s): R07.2 - Precordial pain (4) Chronic kidney disease Current Visit: Yes Status: Chronic Assessment and plan: Patient follows with nephrology as outpatient for chronic kidney disease. Serum creatinine noted to be at baseline. Continue phosphate binders, sodium bicarbonate and multivitamins. Nephrology consult appreciated, recommend 24- hour urine creatinine and urine nitrogen. Qualifiers: Chronic kidney disease stage: stage 4 (severe) Qualified Code(s): N18.4 - Chronic kidney disease, stage 4 (severe) (5) Pancytopenia Current Visit: Yes Status: Chronic (6) HTN (hypertension) Current Visit: Yes Status: Chronic Assessment and plan: Patient is noted to have difficulty controlled hypertension and is noted to be on multiple antihypertensives. Resume home medications and monitor blood pressure closely. Qualifiers: Hypertension type: essential hypertension Qualified Code(s): I10 - Essential (primary) hypertension (7) Secondary hyperparathyroidism of renal origin Current Visit: Yes Status: Chronic (8) Hypothyroidism Current Visit: Yes Status: Chronic Qualifiers: Hypothyroidism type: unspecified Qualified Code(s): E03.9 - Hypothyroidism , unspecified (9) Pancreatic insufficiency Current Visit: Yes Status: Chronic - Subjective Interval history: Feels a lot better today; tolerates oral diet; no nausea, vomiting, abdominal or chest pain; no dyspnea or chest tightness; noted to have low blood sugar readings; - Constitutional Vitals: Temp Pulse Resp BP Pulse Ox 97.8 F 72 18 118/64 98 09/08/16 11:55 09/08/16 11:55 09/08/16 11:55 09/08/16 11:55 09/08/16 11:55 General appearance: Present: A&O X 3, answers questions appropriately - Respiratory Respiratory exam: Present: CTAB. Absent: accessory muscle use, rales, rhonchi, wheezes - Cardiovascular Cardiovascular exam: Present: RRR, +S1, +S2. Absent: diastolic murmur, gallop, rubs, systolic murmur - GI/Abdominal GI/Abdominal exam: Present: normal bowel sounds, soft, no peritoneal signs. Absent: distended, tenderness - Extremities Exam Extremities exam: Present: full ROM, warm, radial pulses palpable and symetrical. Absent: calf tenderness, cyanotic, pedal edema Internal Medicine: Result - Labs CBC & Chem 7: 09/08/16 04:30 09/08/16 04:30 Labs: Short CBC 09/08/16 Range/Units 04:30 WBC 2.6 L (4.3-11.1) K/mcL Hgb 7.4 L (11.5-15.4) g/dL Hct 22.0 L (35.3-44.9) % Plt Count 104 L (140-400) K/mcL Neutrophils # 1.1 L (1.6-8.9) K/mcL BMP 09/07/16 09/08/16 13:30 04:30 Sodium 138 D 136 Potassium 4.5 D 4.3 Chloride 107 107 Carbon Dioxide 23 22 BUN 60 H 54 H Creatinine 2.83 H 2.75 H Glucose 57 L 31 L* Calcium 7.3 L 7.6 L Liver Function 09/08/16 Range/Units 04:30 Albumin 2.7 L (3.5-5.0) g/dL - ABG Interpretation ABG results: PT/INR, D-dimer PT 11.3 Seconds (9.4-12.1) 09/06/16 16:30 - VTE Documentation of Mechanical Device: Graduated compression elastic hosiery Consult Discharge Plan - Plan Referrals: Kim Bales CNP [Partnered Physician] - 09/11/16 10:40 am Marko Hylton Jr, MD [Primary Care Provider] -
[2016-09-09] MEDS: hydrALAZINE 25 MG TABLET PO SCH ×4 (00:33→23:01)
[2016-09-09] MEDS: *HR* Morphine 2 MG/ML SYRINGE IVP PRN ×5 (01:35→23:01)
[2016-09-09 04:33] LABS: Immature Granulocytes % 0.4 % (0-4); Red Cell Distribution Width 14.3 % (11.5-14.5)
[2016-09-09 04:35] LABS: Eosinophils % 1.3 %; Hematocrit 20.9 % (35.3-44.9); Immature Platelets 2.8 % (1.1-6.1); Lymphocytes # 0.7 K/mcL (0.6-4.6); Lymphocytes % 27.3 %; Mean Corpuscular HGB Conc 33.5 g/dL (31.6-35.5); Mean Corpuscular Volume 101.5 fL (83.0-100.0); Mean Platelet Volume 11.2 fL (9.4-12.4); Monocytes # 0.2 K/mcL (0.0-1.3); Monocytes % 8.4 %; Neutrophils # 1.5 K/mcL (1.6-8.9); Red Blood Count 2.06 M/mcL (3.82-4.97); Segmented Neutrophils % 62.6 %
[2016-09-09 04:37] LABS: Platelet Count 91 K/mcL (140-400)
[2016-09-09 04:48] LABS: Albumin 2.7 g/dL (3.5-5.0); Calcium 7.3 mg/dL (8.6-10.8); Phosphorous 5.9 mg/dL (2.3-4.7); Potassium 5.3 mEq/L (3.5-4.5)
[2016-09-09] MEDS ORDERED: Insulin DETEMIR 100 UNIT/ML X5UNITS SQ ONE (07:48)
--- NOTE | 2016-09-09 07:58 | Cardiology Consult Note ---
Date of Encounter: 09/09/16 Time of Encounter: 08:00 Assessment and Plan (1) Abnormal stress test Current Visit: Yes Status: Acute Stress test completed 09/08/16 showed small sized mild to moderate intensity, reversible basal to mid anterior defect. Reduction possibly due to ischemia. She has typical chest pain symptoms. Cardiac risk factors include type I DM, HTN, and significant family history. ( Brother and sister with [place] in late 30's, father [place] in his 50's.) C in 2013 showed normal coronary arteries. Unfortunatley she has progressive CKD stage IV and is planning starting HD this admission. She also have chronic anemia, Hgb 7.0. SHe did undergo EGD/ colonoscopy 2 years ago that was negative. She has anemia d/t chronic illness. I discussed with Dr. Rodas. He is planning possible dialysis saturday and giving JANEE to help improve anemia. I discuss [facility] indications, risks, benefits, and alternatives vs medical management. She is currently high risk for [facility] d/t co-morbidities. She is currently considering options. (2) Chest pain Current Visit: Yes Status: Acute See plan above. Troponin negative. EKG with no acute findings. Qualifiers: Chest pain type: precordial pain Qualified Code(s): R07.2 - Precordial pain Discussion w patient/family: The assessment and plan as outlined above was discussed with the patient and/or family members who expressed understanding and agreement. All questions were answered. Thank you for involving us in the care of your patient. Please call with any questions. History of Present Illness Consult date: 09/09/16 Requesting physician: Kalli Vázquez Consult reason: Abnormal Stress test Chief complaint: Chest pain History of present illness: Ms. Elkins is a 41 year old female with a history of DM type I, chronic kidney disease stage IV, anemia, hyperparathyroidism, and hypertension who presents with chest pain and full-body aches for 24 hours prior to arrival. She reports midsternal chest pain radiating to left chest that increases with activity and improves with rest. Chest pain was relieved with NTG in the ER. Initial work-up included negative troponin and EKG showing NSR with no ischemic changes. A stress test was ordered yesterday by the hospitalist and was found to be abnormal. Cardiology consultation for further evaluation. She is being followed by nephrology during her stay. She is undergoing 24 hour urine to determine if she needs dialysis. Hemoglobin on admission was 7.4 and now 7.0. She developed DKA after admission. She does report a strong family history of CAD. Last LHC in 2012 showed normal coronary arteries. Past Med Surg Social Fam HX - Past Medical History Medical history: arthritis, CHF, diabetes, GERD, hypertension, kidney stones, renal disease, thyroid disease, other Psychiatric history: anxiety, depression - Past Surgical History Surgical History: cholecystectomy, hysterectomy, other - Social History Smoking Status: Never smoker Smokeless Tobacco Status: No Alcohol use: none Drug use: none - Family History Mother Hx Family Neurologic Disorders: Yes (fibromyglia) Father Hx Family Cardiac Disorders: Yes (stents, [place], cath, HTN, DVT) Hx Family Endocrine Disorder: Yes (diabetes) Hx Family Neurologic Disorders: Yes (stroke) Medications and Allergies Rifaximin [Xifaxan] 550 mg PO AD 12/21/15 [History] Ergocalciferol (VITAMIN D2) [Drisdol (50,000 Unit)] 50,000 unit PO QWEEK #12 capsule 12/24/15 [Rx] Furosemide [Lasix] 20 mg PO BID tablet 12/24/15 [Rx] Levothyroxine [Synthroid] 100 mcg PO 0630 tablet 12/24/15 [Rx] amLODIPine [Norvasc] 10 mg PO DAILY #30 tablet 12/24/15 [Rx] hydrALAZINE [HydrALAZINE] 50 mg PO Q8HR #90 tablet 12/24/15 [Rx] ALPRAZolam [Xanax 0.5 MG Tablet] 0.5 mg PO TID 05/22/16 [History] Cyanocobalamin (B-12) [Vitamin B12] 1,000 mcg IM QMONTH 05/22/16 [History] Folic Acid 1 mg PO DAILY #0 05/22/16 [History] Hydrocodone/Acetaminophen [Pearblossom 5-325 Tablet] 1 tab PO Q6H PRN 05/22/16 [ History] Lipase/Protease/Amylase [Creon Dr 6,000 Units Capsule] 3 each PO TIDWM 05/22/16 [History] SUMAtriptan Succinate [Imitrex] 100 mg PO DAILY PRN 05/22/16 [History] Calcitriol 0.5 mcg PO DAILY 09/06/16 [History] Calcium Acetate [Phos-LO] 667 mg PO TIDWM 09/06/16 [History] CloNIDine Patch [Catapres-TTS] 0.6 mg TD QWEEK 09/06/16 [History] Diltiazem CD (24hr) [Cardizem CD] 120 mg PO DAILY 09/06/16 [History] Sodium Bicarbonate 650 mg PO TID 09/06/16 [History] Subcutaneous Insulin Pump [T:Slim] 1 each [facility] 09/06/16 [History] Allergies cephalexin [From Keflex] Allergy (Verified 03/19/16 11:11) Hives patient states she can take benadryl with this ciprofloxacin [From Cipro] Allergy (Verified 03/19/16 11:11) Hives patient states she can take benadryl with this levofloxacin [From Levaquin] Allergy (Verified 03/19/16 11:11) Difficulty Breathing ofloxacin Allergy (Verified 03/19/16 11:11) Rash patient states she can take benadryl with this penicillin V Allergy (Verified 03/19/16 11:11) Hives patient states she can take benadryl with this sulfamethoxazole [From Bactrim] Allergy (Verified 03/19/16 11:11) Hives patient states she can take benadryl with this trimethoprim [From Bactrim] Allergy (Verified 03/19/16 11:11) Hives patient states she can take benadryl with this All Systems Review: A 10-system review of systems was performed and is negative for pertinent findings except as documented above in the HPI. Physical Examination Vital Signs, Last 4 Hours Temp Pulse Resp BP Pulse Ox 09/09/16 04:14 98.3 F 78 16 134/63 95 General: Conversant, No Apparent Distress HEENT: Atraumatic, Normocephaly, Mucus Membranes Moist Neck: No JVD, Normal carotid pulses Cardiac: Reg Rate and Rhythm, Normal S1 and S2, No Murmur Lungs: Normal Breath Sounds, No Wheeze, Rales, Rhonchi Neuro: Alert and responsive, No focal deficits noted Abdomen: Soft, Non-Tender Skin: No rashes noted on visualized skin Musculoskeletal: No Chest Wall Tenderness Extremities: No Clubbing, No Cyanosis, No Edema, Normal Pulses Results 09/09/16 04:10 09/09/16 04:10 Lab Results 09/09/16 09/09/16 04:10 04:10 WBC 2.4 L Hgb 7.0 L Hct 20.9 L Plt Count 91 L Sodium 131 L Potassium 5.3 H D Chloride 104 Carbon Dioxide 16 L BUN 58 H Creatinine 3.08 H Glucose 433 H Calcium 7.3 L Consult Discharge Plan - Plan Referrals: Kim Bales CNP [Partnered Physician] - 09/11/16 10:40 am Marko Hylton Jr, MD [Primary Care Provider] -
[2016-09-09] MEDS: Folic Acid 1 MG TABLET PO SCH (08:00)
[2016-09-09] MEDS: *HR* Promethazine 25 MG/ML VIAL IVP PRN ×2 (08:01→17:12)
[2016-09-09] MEDS: amLODIPine 5 MG TABLET PO SCH (08:01)
[2016-09-09] MEDS: ALPRAZolam 0.5 MG TABLET PO SCH ×3 (08:01→20:46)
[2016-09-09] MEDS: Diltiazem CD (24hr) 120 MG CAPSULE PO SCH (08:01)
[2016-09-09] MEDS: Furosemide 20 MG TABLET PO SCH ×2 (08:01→13:18)
[2016-09-09] MEDS: Insulin LISPRO 300 UNITS/3 ML VIAL SQ SCH ×4 (08:02→20:40)
[2016-09-09] MEDS: Calcium Acetate 667 MG CAPSULE PO SCH ×3 (08:44→17:12)
--- NOTE | 2016-09-09 09:48 | Internal Med Progress Note ---
Date of Encounter: 09/09/16 Time of Encounter: 09:00 - Assessment and plan (1) Hyperglycemia Current Visit: Yes Status: Acute Assessment and plan: Patient is noted to have labile blood sugars, difficult to control. She has been off IV insulin drip and continued to have hypoglycemia yesterday due to which her long-acting insulin has been held. However she is noted to have a blood sugar of 400 this morning. We will start every 3 hourly Accu-Chek monitoring at this time, restart patient's insulin pump along with sliding scale insulin. Diabetic diet. Continue to monitor blood sugars closely. (2) Type I diabetes mellitus Current Visit: Yes Status: Chronic Assessment and plan: Continue to monitor blood sugars closely. Patient is noted to have had multiple previous hospitalizations with hyperglycemia and DKA. Qualifiers: Diabetes mellitus complication status: with kidney complications Diabetes mellitus complication detail: with nephropathy Qualified Code(s): E10.21 - Type 1 diabetes mellitus with diabetic nephropathy (3) Chest pain Current Visit: Yes Status: Acute Assessment and plan: Patient presents with retrosternal chest pain, to rule out ACS due to significant family history, underlying diabetes and chronic kidney disease. Currently chest pain-free. Continue telemetry, serial troponins so far negative. Nuclear stress test shows small size, mild to moderate intensity, reversible basal to mid anterior reduction in perfusion, likely due to ischemia. Cardiology consult appreciated, will consider left heart catheterization after initiation of hemodialysis. Continue aspirin, statin. Qualifiers: Chest pain type: precordial pain Qualified Code(s): R07.2 - Precordial pain (4) Chronic kidney disease Current Visit: Yes Status: Chronic Assessment and plan: Patient follows with nephrology as outpatient for chronic kidney disease. Patient is noted to have worsening kidney disease along with acidosis, hyperphosphatemia and anemia. Nephrology follow-up appreciated, plan for possible placement of permacath tomorrow morning to be followed by hemodialysis. Qualifiers: Chronic kidney disease stage: stage 4 (severe) Qualified Code(s): N18.4 - Chronic kidney disease, stage 4 (severe) (5) Pancytopenia Current Visit: Yes Status: Chronic Assessment and plan: Chronic. Unclear etiology. Avoid medical anticoagulants. (6) HTN (hypertension) Current Visit: Yes Status: Chronic Assessment and plan: Patient is noted to have difficulty controlled hypertension and is noted to be on multiple antihypertensives. Resume home medications and monitor blood pressure closely. Qualifiers: Hypertension type: essential hypertension Qualified Code(s): I10 - Essential (primary) hypertension (7) Secondary hyperparathyroidism of renal origin Current Visit: Yes Status: Chronic (8) Hypothyroidism Current Visit: Yes Status: Chronic Qualifiers: Hypothyroidism type: unspecified Qualified Code(s): E03.9 - Hypothyroidism , unspecified (9) Pancreatic insufficiency Current Visit: Yes Status: Chronic (10) Anemia Current Visit: Yes Status: Chronic Assessment and plan: Noted to have worsening anemia. Normal iron stores with low folate levels, increased folic acids supplements. Hemoglobin today is noted to be 7, will transfuse 2 units PRBC and continue to monitor closely. She will be started on Aranesp after hemodialysis. Qualifiers: Anemia type: other cause Other causes of anemia: chronic disease, kidney Qualified Code(s): N18.9 - Chronic kidney disease, unspecified; D63.1 - Anemia in chronic kidney disease - Subjective Interval history: Upset about her fluctuating blood sugars but reports she has similar issues at home but she always has her insulin pump running for basal insulin, adjusts the rate; no nausea, emesis but reports 'feeling rough, like she will be going into DKA' soon; - Constitutional Vitals: Temp Pulse Resp BP Pulse Ox 98.8 F 98 16 120/58 97 09/09/16 08:30 09/09/16 08:30 09/09/16 08:30 09/09/16 08:30 09/09/16 08:30 General appearance: Present: A&O X 3, answers questions appropriately - Respiratory Respiratory exam: Present: CTAB. Absent: accessory muscle use, rales, rhonchi, wheezes - Cardiovascular Cardiovascular exam: Present: RRR, +S1, +S2. Absent: diastolic murmur, gallop, rubs, systolic murmur - GI/Abdominal GI/Abdominal exam: Present: normal bowel sounds, soft, no peritoneal signs. Absent: distended, tenderness - Extremities Exam Extremities exam: Present: full ROM, warm, radial pulses palpable and symetrical. Absent: calf tenderness, cyanotic, pedal edema Internal Medicine: Result - Labs CBC & Chem 7: 09/09/16 04:10 09/09/16 04:10 Labs: Short CBC 09/09/16 Range/Units 04:10 WBC 2.4 L (4.3-11.1) K/mcL Hgb 7.0 L (11.5-15.4) g/dL Hct 20.9 L (35.3-44.9) % Plt Count 91 L (140-400) K/mcL Neutrophils # 1.5 L (1.6-8.9) K/mcL BMP 09/09/16 04:10 Sodium 131 L Potassium 5.3 H D Chloride 104 Carbon Dioxide 16 L BUN 58 H Creatinine 3.08 H Glucose 433 H Calcium 7.3 L Liver Function 09/09/16 Range/Units 04:10 Albumin 2.7 L (3.5-5.0) g/dL - ABG Interpretation ABG results: PT/INR, D-dimer PT 11.3 Seconds (9.4-12.1) 09/06/16 16:30 - VTE Documentation of Mechanical Device: Intermittent pneumatic compression device Consult Discharge Plan - Plan Referrals: Kim Bales CNP [Partnered Physician] - 09/11/16 10:40 am Marko Hylton Jr, MD [Primary Care Provider] -
[2016-09-09] MEDS ORDERED: 0.9 % Sodium Chloride 500 ML ONE (10:30)
--- NOTE | 2016-09-09 11:31 | Nephrology Progress Note ---
Date of Encounter: 09/09/16 Time of Encounter: 09:15 - Assessment and Plan (1) Acute kidney injury superimposed on chronic kidney disease Current Visit: Yes Status: Acute SCr worsening with hyperkalemia and hyponatremia plus advanced anemia. Suspect that she is experencing too many symptoms suggestive of uremia. Will plan for NPO tonight with an IR request for placement of a Permacath for initiation of HD. Discussed also with Cardiology. They are considering further coronary work up, perhaps LHC, now that HD is being initiated. (2) CKD (chronic kidney disease), stage IV Current Visit: No Status: Chronic She appears to be progressiving heading toward stage V, ESRD. (3) Hyperkalemia Current Visit: No Status: Resolved (4) Iron deficiency anemia Current Visit: No Status: Chronic Qualifiers: Iron deficiency anemia type: other iron deficiency Qualified Code(s): D50.8 - Other iron deficiency anemias (5) Nephrotic syndrome Current Visit: No Status: Chronic (6) Secondary hyperparathyroidism of renal origin Current Visit: Yes Status: Chronic Acutely worsened on chronic SHPT, now with bone pain. Last week in the clinic, I 've arranged for a more potent activated vit D agen (Zemplar), so ideally this will help in the care home with both the iPTH and her diffuse bone pain levels. (7) DKA (diabetic ketoacidoses) Current Visit: No Status: Acute Qualifiers: Diabetes mellitus type: type 1 Diabetes mellitus complication detail: without coma Qualified Code(s): E10.10 - Type 1 diabetes mellitus with ketoacidosis without coma (8) HTN (hypertension) Current Visit: Yes Status: Chronic Continue the high dose Clonidine and home Agents for now. Qualifiers: Hypertension type: essential hypertension Qualified Code(s): I10 - Essential (primary) hypertension Subjective Principal diagnosis: N/V, Advanced renal dysfunction Interval history: Pt was s/e. She had a rough night she said with very high BG. She said she spoke with her hosptialist about finding deidra BG control. She affirmed having ongoing N/V. Worsening ShOB she said. Cardiology is following, she said. Objective - Vital Signs Vital signs: Vital Signs Temp Pulse Resp BP Pulse Ox 09/09/16 11:08 74 09/09/16 10:47 98.4 F 74 16 109/55 95 09/09/16 10:31 97.9 F 77 15 110/53 09/09/16 08:30 98.8 F 86 16 120/58 97 09/09/16 04:14 98.3 F 78 16 134/63 95 09/09/16 00:31 98.4 F 73 16 162/81 96 09/08/16 19:13 98.4 F 71 16 127/70 96 09/08/16 15:25 98.2 F 65 16 114/60 95 09/08/16 11:55 97.8 F 72 18 118/64 98 Intake and Output 09/08/16 09/09/16 09/09/16 23:59 07:59 15:59 Intake Total 360 / 360 Output Total 1300 / 1300 550 / 550 0 / 0 Balance -1300 / -1300 -550 / -550 360 / 360 Intake: Oral 360 / 360 Blood Product 0 / 0 Rbcs Leuko Poor As-1 0 / 0 Unit [id number] Output: Urine 1300 / 1300 550 / 550 0 / 0 Other: Meal Breakfast Percent of Meal Consumed 80% Weight 88.2 kg Blood Glucose* 136 410 304 Patient Weight 09/09/16 23:59 Weight 88.2 kg - General Appearance Exam: General appearance: Present: well-developed, well-nourished, chronically ill, frail EENT: Present: ATNC, PERRL, mucous membranes dry Neck: Present: supple Respiratory: Present: clear Cardiology: Present: edema, regular rate, regular rhythm, normal S1, normal S2 Gastrointestinal: Present: normoactive bowel sounds, no tenderness, no guarding Integumentary: Present: warm and dry Neurologic: Present: no focal deficit, no asterixis, alert and oriented x3 Musculoskeletal: Present: no deformities, no erythema, no cyanosis Psychiatric: Present: mood/affect appropriate, cooperative - Lab 09/09/16 04:10 09/09/16 04:10 Most recent lab results Calcium 7.3 mg/dL (8.6-10.8) L 09/09/16 04:10 Phosphorus 5.9 mg/dL (2.3-4.7) H 09/09/16 04:10 Magnesium 1.8 mg/dL (1.6-2.6) 09/08/16 04:30 - VTE Documentation of Mechanical Device: Intermittent pneumatic compression device Consult Discharge Plan - Plan Referrals: Kim Bales CNP [Partnered Physician] - 09/11/16 10:40 am Marko Hylton Jr, MD [Primary Care Provider] -
[2016-09-09] MEDS ORDERED: Furosemide 20 MG/2 ML VIAL IVP ONE (13:14)
[2016-09-09] MEDS: Cyanocobalamin (B-12) 1,000 MCG/ML VIAL IM SCH (14:48)
[2016-09-09 14:54] LABS: Total Volume 24 Hour,Urine 2.88 Liters (0.60-1.60)
[2016-09-09 15:08] LABS: Creatinine 24 Hour,Urine 1.01 g/day (0.71-1.65)
[2016-09-09 15:12] LABS: Creatinine 24 Hour,Urine 1.01 g/day (0.71-1.65); Total Volume 24 Hour,Urine 2.88 Liters (0.60-1.60)
[2016-09-10] MEDS: *HR* Dextrose 50 % in Water (Syg) 50 ML SYRINGE IVP PRN ×5 (01:29→18:58)
[2016-09-10] MEDS: *HR* Promethazine 25 MG/ML VIAL IVP PRN ×2 (01:40→19:59)
[2016-09-10] MEDS: D5% in Water 1,000 ML IVC PRN (03:41)
[2016-09-10 05:09] LABS: INR 1.1; Prothrombin Time 11.5 Seconds (9.4-12.1)
[2016-09-10 05:21] LABS: Basophils % 0.5 %; Eosinophils # 0.1 K/mcL (0.0-0.6); Eosinophils % 2.7 %; Hematocrit 25.5 % (35.3-44.9); Hemoglobin 8.7 g/dL (11.5-15.4); Lymphocytes # 0.7 K/mcL (0.6-4.6); Lymphocytes % 32.4 %; Mean Corpuscular HGB Conc 34.1 g/dL (31.6-35.5); Mean Corpuscular Hemoglobin 32.7 pg (28.0-33.3); Mean Corpuscular Volume 95.9 fL (83.0-100.0); Mean Platelet Volume 10.6 fL (9.4-12.4); Monocytes # 0.3 K/mcL (0.0-1.3); Monocytes % 11.3 %; Neutrophils # 1.2 K/mcL (1.6-8.9); Red Blood Count 2.66 M/mcL (3.82-4.97); Red Cell Distribution Width 15.8 % (11.5-14.5); Segmented Neutrophils % 53.1 %
[2016-09-10 05:22] LABS: Platelet Count 92 K/mcL (140-400)
[2016-09-10 05:25] LABS: Albumin 2.7 g/dL (3.5-5.0); Calcium 7.5 mg/dL (8.6-10.8); Magnesium 1.8 mg/dL (1.6-2.6); Phosphorous 6.5 mg/dL (2.3-4.7)
[2016-09-10 05:30] LABS: Potassium 4.2 mEq/L (3.5-4.5)
[2016-09-10 05:37] LABS: Hemoglobin A1C 5.3 %
[2016-09-10] MEDS: *HR* Morphine 2 MG/ML SYRINGE IVP PRN ×4 (05:43→19:59)
[2016-09-10] MEDS: hydrALAZINE 25 MG TABLET PO SCH ×2 (08:44→18:01)
[2016-09-10] MEDS: amLODIPine 5 MG TABLET PO SCH (08:45)
[2016-09-10] MEDS: Furosemide 20 MG TABLET PO SCH ×2 (08:45→18:02)
[2016-09-10] MEDS: Cyanocobalamin (B-12) 1,000 MCG/ML VIAL IM SCH (08:45)
[2016-09-10] MEDS: Diltiazem CD (24hr) 120 MG CAPSULE PO SCH (08:45)
[2016-09-10] MEDS: ALPRAZolam 0.5 MG TABLET PO SCH ×3 (08:45→19:59)
[2016-09-10] MEDS: Folic Acid 1 MG TABLET PO SCH (08:45)
[2016-09-10] MEDS: Calcium Acetate 667 MG CAPSULE PO SCH ×3 (08:45→18:02)
[2016-09-10] MEDS: Insulin LISPRO 300 UNITS/3 ML VIAL SQ SCH ×4 (08:53→20:44)
[2016-09-10] MEDS: *HR* HYDROcodone/Acet 5/325 mg TABLET PO PRN ×2 (08:59→21:59)
[2016-09-10] MEDS ORDERED: 0.9 % Sodium Chloride 250 ML IVC PRN (09:57)
[2016-09-10] MEDS ORDERED: *HR* Heparin 10,000 UNIT/10 ML VIAL IV PRN (09:57)
[2016-09-10] MEDS ORDERED: 0.9 % Sodium Chloride 1,000 ML PRIME SCH (10:00)
[2016-09-10] MEDS ORDERED: 0.9 % Sodium Chloride 2,000 ML ONE (10:36)
[2016-09-10 12:56] LABS: Hepatitis B Surface Antigen Nonreactive (Nonreactive)
[2016-09-10 12:58] LABS: Hepatitis B Surface Antibody 29.21 mIU/mL
--- NOTE | 2016-09-10 15:13 | Cardiology Progress Note ---
Date of Encounter: 09/10/16 Time of Encounter: 15:10 Assessment and Plan (1) Abnormal stress test Current Visit: Yes Status: Acute Stress test completed 09/08/16 showed small sized mild to moderate intensity, reversible basal to mid anterior defect. Reduction possibly due to ischemia. She has typical chest pain symptoms. Cardiac risk factors include type I DM, HTN, and significant family history. ( Brother and sister with [place] in late 30's, father [place] in his 50's.) LHC in 2013 showed normal coronary arteries. I discuss C indications, risks, benefits, and alternatives vs medical management. She would like to proceed with [facility]. Unfortunately she has progressive CKD stage IV and is planning starting HD this admission. HD expected to start today. She also have chronic anemia, Hgb 7.0. She reports undergoing EGD/colonoscopy about 2 years ago that was negative. She had 2 units of blood with some improvement in her Hgb yesterday. I called Dr. Mas to evaluate for possible EGD colonoscopy to r/o bleeding prior to proceeding with [facility]. (2) Chest pain Current Visit: Yes Status: Acute See plan above. Troponin negative. EKG with no acute findings. Qualifiers: Chest pain type: precordial pain Qualified Code(s): R07.2 - Precordial pain Discussion w patient/family: The assessment and plan as outlined above was discussed with the patient and/or family members who expressed understanding and agreement. All questions were answered. Thank you for involving us in the care of your patient. Please call with any questions. Subjective Principal diagnosis: N/V, Advanced renal dysfunction Interval history: Reports chest pain improved. Continues to have mid-sternal discomfort when ambulating to bathroom. Planning for dialysis today. Objective Vital Signs, Last 4 Hours Temp Pulse Resp BP Pulse Ox 09/10/16 11:23 97.8 F 68 16 116/63 95 General: Conversant, No Apparent Distress HEENT: Atraumatic, Normocephaly, Mucus Membranes Moist Neck: No JVD, Normal carotid pulses Cardiac: Reg Rate and Rhythm, Normal S1 and S2, No Murmur Lungs: Normal Breath Sounds, No Wheeze, Rales, Rhonchi Neuro: Alert and responsive, No focal deficits noted Abdomen: Soft, Non-Tender Skin: No rashes noted on visualized skin Musculoskeletal: No Chest Wall Tenderness Extremities: No Clubbing, No Cyanosis, Normal Pulses, Other (Trace edema in BLE. ) Results 09/10/16 04:45 09/10/16 04:45 Lab Results 09/10/16 09/10/16 09/10/16 04:45 04:45 04:45 WBC 2.2 L Hgb 8.7 L D Hct 25.5 L Plt Count 92 L INR 1.1 Sodium 137 Potassium 4.2 D Chloride 108 Carbon Dioxide 21 BUN 64 H Creatinine 2.94 H Glucose 70 Calcium 7.5 L Magnesium 1.8 - Imaging and Cardiology Echo: report reviewed - EKG Interpretation EKG results cardiology: personally reviewed - VTE Documentation of Mechanical Device: Intermittent pneumatic compression device Consult Discharge Plan - Plan Referrals: Kim Bales CNP [Partnered Physician] - 09/20/16 10:00 am
--- NOTE | 2016-09-10 15:29 | Internal Med Progress Note ---
Date of Encounter: 09/10/16 Time of Encounter: 12:30 - Assessment and plan (1) Hyperglycemia Current Visit: Yes Status: Acute Assessment and plan: Patient is noted to have labile blood sugars, difficult to control. She is currently noted to have fasting hypoglycemia, beginning after midnight. It may be better to hold patient's insulin pump beginning 9 PM until at least 4 AM. Continue every 3 hourly Accu-Chek blood glucose monitoring. Patient is still hesitant about holding insulin pump completely unless we check her blood sugars more frequently. Also expect her blood sugars to be better controlled with initiation of hemodialysis, she will be at risk for hypoglycemia. Diabetic diet. Continue to monitor blood sugars closely. (2) Type I diabetes mellitus Current Visit: Yes Status: Chronic Assessment and plan: Continue to monitor blood sugars closely. Patient is noted to have had multiple previous hospitalizations with hyperglycemia and DKA. Hemoglobin A1c noted to be 5.3% and this may not be accurate given underlying anemia and renal disease. Qualifiers: Diabetes mellitus complication status: with kidney complications Diabetes mellitus complication detail: with nephropathy Qualified Code(s): E10.21 - Type 1 diabetes mellitus with diabetic nephropathy (3) Chest pain Current Visit: Yes Status: Acute Assessment and plan: Patient presents with retrosternal chest pain, to rule out ACS due to significant family history, underlying diabetes and chronic kidney disease. Currently chest pain-free. Continue telemetry, serial troponins so far negative. Nuclear stress test shows small size, mild to moderate intensity, reversible basal to mid anterior reduction in perfusion, likely due to ischemia. Cardiology follow-up appreciated, will consider left heart catheterization after initiation of hemodialysis. Also recommend GI consult for possible EGD and colonoscopy to evaluate anemia. Continue aspirin, statin. Qualifiers: Chest pain type: precordial pain Qualified Code(s): R07.2 - Precordial pain (4) Chronic kidney disease Current Visit: Yes Status: Chronic Assessment and plan: Patient follows with nephrology as outpatient for chronic kidney disease. Patient is noted to have worsening kidney disease along with acidosis, hyperphosphatemia and anemia. Nephrology follow-up appreciated, plan for possible placement of permacath today to be followed by hemodialysis. Continue phosphate binders, Zemplar, and Aranesp. Patient continues to require when necessary IV morphine for bone pain. Qualifiers: Chronic kidney disease stage: stage 4 (severe) Qualified Code(s): N18.4 - Chronic kidney disease, stage 4 (severe) (5) Pancytopenia Current Visit: Yes Status: Chronic (6) HTN (hypertension) Current Visit: Yes Status: Chronic Qualifiers: Hypertension type: essential hypertension Qualified Code(s): I10 - Essential (primary) hypertension (7) Secondary hyperparathyroidism of renal origin Current Visit: Yes Status: Chronic (8) Hypothyroidism Current Visit: Yes Status: Chronic Assessment and plan: Continue levothyroxine. Qualifiers: Hypothyroidism type: unspecified Qualified Code(s): E03.9 - Hypothyroidism , unspecified (9) Pancreatic insufficiency Current Visit: Yes Status: Chronic (10) Anemia Current Visit: Yes Status: Chronic Assessment and plan: Noted to have worsening anemia. Normal iron stores with low folate levels, increased folic acids supplements. Hemoglobin today is noted to be 8.7, improved after 2 units PRBC transfusion. She will be started on Aranesp after hemodialysis. Qualifiers: Anemia type: other cause Other causes of anemia: chronic disease, kidney Qualified Code(s): N18.9 - Chronic kidney disease, unspecified; D63.1 - Anemia in chronic kidney disease - Subjective Interval history: Noted to have hypoglycemia since after midnight. Currently nothing by mouth, awaiting placement of tunneled hemodialysis catheter and first session of hemodialysis today. No nausea, vomiting, abdominal pain, shortness of breath at this time. - Constitutional Vitals: Temp Pulse Resp BP Pulse Ox 97.8 F 68 16 116/63 95 09/10/16 11:23 09/10/16 11:23 09/10/16 11:23 09/10/16 11:23 09/10/16 11:23 General appearance: Present: A&O X 3, answers questions appropriately - Respiratory Respiratory exam: Present: CTAB. Absent: accessory muscle use, rales, rhonchi, wheezes - Cardiovascular Cardiovascular exam: Present: RRR, +S1, +S2. Absent: diastolic murmur, gallop, rubs, systolic murmur - GI/Abdominal GI/Abdominal exam: Present: normal bowel sounds, soft, no peritoneal signs. Absent: distended, tenderness - Extremities Exam Extremities exam: Present: full ROM, pedal edema, warm, radial pulses palpable and symetrical. Absent: calf tenderness, cyanotic Internal Medicine: Result - Labs CBC & Chem 7: 09/10/16 04:45 09/10/16 04:45 Labs: Short CBC 09/10/16 Range/Units 04:45 WBC 2.2 L (4.3-11.1) K/mcL Hgb 8.7 L D (11.5-15.4) g/dL Hct 25.5 L (35.3-44.9) % Plt Count 92 L (140-400) K/mcL Neutrophils # 1.2 L (1.6-8.9) K/mcL BMP 09/10/16 04:45 Sodium 137 Potassium 4.2 D Chloride 108 Carbon Dioxide 21 BUN 64 H Creatinine 2.94 H Glucose 70 Calcium 7.5 L Liver Function 09/10/16 Range/Units 04:45 Albumin 2.7 L (3.5-5.0) g/dL - ABG Interpretation ABG results: PT/INR, D-dimer PT 11.5 Seconds (9.4-12.1) 09/10/16 04:45 - VTE Documentation of Mechanical Device: Intermittent pneumatic compression device Consult Discharge Plan - Plan Referrals: Kim Bales CNP [Partnered Physician] - 09/20/16 10:00 am
[2016-09-10] MEDS ORDERED: Heparin 1,000 UNITS/500 mL NS 500 ML ONE (16:12)
[2016-09-10] MEDS ORDERED: *HR* Midazolam HCl 2 MG/2 ML VIAL ONE (16:19)
[2016-09-10] MEDS ORDERED: *HR* FentaNYL (PF) 100 MCG/2 ML VIAL ONE (16:19)
[2016-09-10] MEDS ORDERED: Clindamycin 600 MG/50 ML 600 MG/50 ML IV.SOLN IVPB ONE (16:21)
[2016-09-10] MEDS ORDERED: SODIUM CHLORIDE/NAHCO3/KCL/PEG 4,000 ML SOLN.RECON PO ONE (16:41)
--- NOTE | 2016-09-10 16:55 | Nephrology Progress Note ---
Date of Encounter: 09/10/16 Time of Encounter: 16:53 - Assessment and Plan (1) Acute kidney injury superimposed on chronic kidney disease Current Visit: Yes Status: Acute Patient appears to have progressed to ESRD and has possible uremic symptoms. Per Dr. Rodas will start HD today. (2) Hyperparathyroidism Current Visit: Yes Status: Acute on vitamin d and zemplar (3) Chest pain Current Visit: Yes Status: Acute resolved. Per primary team. Qualifiers: Chest pain type: precordial pain Qualified Code(s): R07.2 - Precordial pain (4) Diabetes type I Current Visit: No Status: Acute per primary team. Qualifiers: Diabetes mellitus complication status: with kidney complications Diabetes mellitus complication detail: with chronic kidney disease Chronic kidney disease stage: stage 3 (moderate) Qualified Code(s): E10.22 - Type 1 diabetes mellitus with diabetic chronic kidney disease; N18.3 - Chronic kidney disease, stage 3 (moderate) (5) HTN (hypertension) Current Visit: Yes Status: Chronic mild elevated blood pressure. Should improve with UF. Qualifiers: Hypertension type: essential hypertension Qualified Code(s): I10 - Essential (primary) hypertension Subjective Principal diagnosis: N/V, Advanced renal dysfunction Interval history: Patient seen and evaluated. Patient still with nausea. No other new complaint. Her ROS otherwise is stable. Objective - Vital Signs Vital signs: Vital Signs Temp Pulse Resp BP Pulse Ox 09/10/16 16:34 76 16 145/73 99 09/10/16 16:30 70 14 158/78 99 09/10/16 16:21 66 16 154/78 99 09/10/16 11:23 97.8 F 68 16 116/63 95 09/10/16 10:57 66 16 09/10/16 07:55 71 09/10/16 07:40 98.0 F 64 18 145/71 96 09/10/16 04:14 98.1 F 61 16 128/69 95 09/09/16 23:02 98.1 F 64 16 128/67 94 09/09/16 19:17 98.1 F 64 15 125/66 95 09/09/16 19:16 98.1 F 64 15 125/66 95 Intake and Output 09/10/16 09/10/16 09/10/16 07:59 15:59 23:59 Intake Total 283 / 283 0 / 0 Output Total 1750 / 1750 Balance 283 / 283 -1750 / -1750 Intake: IV Fluids 283 / 283 Dextrose 5% 1,000 ML @ 283 / 283 100 mls/hr IVC .Q10H PRN Rx#:[id number] Oral 0 / 0 Output: Urine 1750 / 1750 Other: Meal Breakfast Percent of Meal Consumed 0% Weight 87.8 kg Blood Glucose* 141 224 Patient Weight 09/10/16 23:59 Weight 87.8 kg - General Appearance General appearance: Present: well-developed, well-nourished EENT: Present: ATNC Neck: Present: supple Respiratory: Present: clear Cardiology: Present: no edema, regular rate Gastrointestinal: Present: normoactive bowel sounds Integumentary: Present: warm and dry Neurologic: Present: alert and oriented x3 Musculoskeletal: Present: no cyanosis Psychiatric: Present: mood/affect appropriate - Lab 09/10/16 04:45 09/10/16 04:45 Most recent lab results Calcium 7.5 mg/dL (8.6-10.8) L 09/10/16 04:45 Phosphorus 6.5 mg/dL (2.3-4.7) H 09/10/16 04:45 Magnesium 1.8 mg/dL (1.6-2.6) 09/10/16 04:45 Urine Creatinine 35 mg/dL 09/09/16 01:45 - VTE Documentation of Mechanical Device: Intermittent pneumatic compression device Consult Discharge Plan - Plan Referrals: Kim Bales CNP [Partnered Physician] - 09/20/16 10:00 am
[2016-09-10] MEDS ORDERED: *HR* FentaNYL (PF) 100 MCG/2 ML VIAL IVP PRN (17:03)
[2016-09-10] MEDS ORDERED: *HR* Midazolam HCl 2 MG/2 ML VIAL IVP PRN (17:03)
--- NOTE | 2016-09-10 17:28 | Venous Imaging Report ---
UE Vein Map Patient Name:Iman Elkins Order Number:[id number] Procedure Date:09/09/2016 Date:1975Age:41 yrs Gender:Female Location:[facility] Room #: 2N05 Recreation Coordinator:CAROLINA CifuentesT Referring MD:Norris Rodas DO cyber defense analyst:Marko Hylton MD Reading MD:Hamilton Braga MD , FACS Primary Indications:vein mapping Risk Factors Yes/No Hx of DVT No Impressions: Bilateral upper extremity: normal superficial and deep exam. Pre-Op vein mapping evaluation: acceptable right Cephalic Vein. Pre-Op vein mapping evaluation: acceptable left Cephalic Vein except in the distal aspect. Findings Venous Duplex Results: Right: Venous imaging of the upper extremity reveals full patency and normal vessel compressibility of the right jugular, right subclavian, right axillary, right brachial, right cephalic, right basilic, right radial and right ulnar. Doppler signals in the evaluated veins were normal. Left: Venous imaging of the upper extremity reveals full patency and normal vessel compressibility of the left jugular, left subclavian, left axillary, left brachial, left cephalic, left basilic, left radial and left ulnar. Doppler signals in the evaluated veins were normal. Vein Map Results: Left: The left mid basilic at the forearm and left distal basilic at the forearm veins were not assessed. Prior Study: No prior study available for comparison. Upper Extremity Vein Map Side Vein Depth (cm) Diameter (cm) Characteristics Flow Right Proximal Basilic - Upper Arm 1.33 0.65 Normal Right Mid Basilic - Upper Arm 1.42 0.41 Normal Right Distal Basilic - Upper Arm 1.28 0.35 Normal Right Medial antecubital 0.79 0.30 Normal Right Proximal Basilic - Forearm 0.50 0.22 Normal Right Mid Basilic - Forearm 0.69 0.15 Normal Right Distal Basilic - Forearm 0.81 0.12 Normal Right Proximal Cephalic - Upper Arm 1.03 0.39 Normal Right Mid Cephalic - Upper Arm 1.26 0.31 Normal Right Distal Cephalic - Upper Arm 0.40 0.32 Normal Right lateral antecubital 0.65 0.31 Normal Right Proximal Cephalic - Forearm 0.95 0.15 Normal Right Mid Cephalic - Forearm 0.83 0.10 Normal Right Distal Cephalic - Forearm 0.80 0.09 Normal Left Proximal Basilic - Upper Arm 1.37 0.46 Normal Left Mid Basilic - Upper Arm 1.53 0.44 Normal Left Distal Basilic - Upper Arm 1.09 0.47 Normal Left Medial antecubital 0.53 0.34 Normal Left Proximal Basilic - Forearm 0.93 0.13 Normal Left Proximal Cephalic - Upper Arm 1.25 0.31 Normal Left Mid Cephalic - Upper Arm 1.54 0.23 Normal Left Distal Cephalic - Upper Arm 0.96 0.23 Normal Left lateral antecubital 0.34 0.27 Normal Left Proximal Cephalic - Forearm 1.08 0.24 Normal Left Mid Cephalic - Forearm 0.81 0.21 Normal Left Distal Cephalic - Forearm 0.76 0.15 Normal Updated by Hamilton Braga MD, FACS on 09/10/2016 5:22:55 PM Hamilton Braga MD electronically signed on 09/10/2016 5:23:15 PM with status of Final
[2016-09-10] MEDS: CloNIDine Patch 0.3 MG PATCH (WEEKLY) TD SCH (20:11)
[2016-09-11] MEDS: hydrALAZINE 25 MG TABLET PO SCH ×3 (00:32→14:54)
[2016-09-11] MEDS: *HR* Morphine 2 MG/ML SYRINGE IVP PRN ×4 (00:33→18:56)
[2016-09-11] MEDS: *HR* Promethazine 25 MG/ML VIAL IVP PRN ×2 (04:05→15:07)
[2016-09-11 04:28] LABS: Basophils % 0.6 %; Eosinophils % 2.5 %; Hematocrit 26.1 % (35.3-44.9); Hemoglobin 9.1 g/dL (11.5-15.4); Lymphocytes # 0.6 K/mcL (0.6-4.6); Lymphocytes % 36.8 %; Mean Corpuscular HGB Conc 34.9 g/dL (31.6-35.5); Mean Corpuscular Hemoglobin 33.1 pg (28.0-33.3); Mean Corpuscular Volume 94.9 fL (83.0-100.0); Mean Platelet Volume 10.7 fL (9.4-12.4); Monocytes % 15.3 %; Neutrophils # 0.7 K/mcL (1.6-8.9); Red Blood Count 2.75 M/mcL (3.82-4.97); Red Cell Distribution Width 15.3 % (11.5-14.5); Segmented Neutrophils % 44.8 %
[2016-09-11 04:29] LABS: Monocytes # 0.2 K/mcL (0.0-1.3); Platelet Count 85 K/mcL (140-400)
[2016-09-11 04:44] LABS: Albumin 2.9 g/dL (3.5-5.0); Calcium 7.5 mg/dL (8.6-10.8); Phosphorous 4.5 mg/dL (2.3-4.7); Potassium 4.6 mEq/L (3.5-4.5)
[2016-09-11 04:51] LABS: Platelet Estimate Decreased (Normal)
[2016-09-11] MEDS: *HR* HYDROcodone/Acet 5/325 mg TABLET PO PRN ×2 (07:40→21:29)
[2016-09-11] MEDS ORDERED: *HR* Heparin 10,000 UNIT/10 ML VIAL IV PRN (08:16)
[2016-09-11] MEDS ORDERED: 0.9 % Sodium Chloride 250 ML IVC PRN (08:16)
[2016-09-11] MEDS: Insulin LISPRO 300 UNITS/3 ML VIAL SQ SCH ×4 (09:43→21:25)
--- NOTE | 2016-09-11 09:50 | Nephrology Progress Note ---
Date of Encounter: 09/11/16 Time of Encounter: 09:48 - Assessment and Plan (1) ESRD (end stage renal disease) on dialysis Current Visit: Yes Status: Acute HD day #2 Will plan for HD again tomorrow Would like to go to [facility] dialysis clinic-consult for social welfare research worker to set up chair time Renal diet Strict I/Os (2) Pancytopenia Current Visit: Yes Status: Chronic per primary team (3) Diabetes type I Current Visit: No Status: Acute per primary team Qualifiers: Diabetes mellitus complication status: with kidney complications Diabetes mellitus complication detail: with chronic kidney disease Chronic kidney disease stage: stage 3 (moderate) Qualified Code(s): E10.22 - Type 1 diabetes mellitus with diabetic chronic kidney disease; N18.3 - Chronic kidney disease, stage 3 (moderate) Subjective Principal diagnosis: N/V, Advanced renal dysfunction Interval history: Patient seen and examined in dialysis. States she is doing well but tired. Objective - Vital Signs Vital signs: Vital Signs Temp Pulse Resp BP Pulse Ox 09/11/16 09:20 153/75 09/11/16 09:05 156/72 09/11/16 08:50 165/79 09/11/16 08:35 162/51 09/11/16 08:20 170/81 09/11/16 08:05 173/87 09/11/16 07:50 98.0 F 16 173/84 09/11/16 07:04 98 F 68 15 151/78 95 09/11/16 04:28 97.8 F 63 14 149/77 95 09/11/16 00:58 58 09/11/16 00:33 97.2 F L 60 19 147/107 98 09/10/16 20:26 61 09/10/16 20:13 98.0 F 63 16 119/83 96 09/10/16 19:10 97.8 F 16 126/58 09/10/16 19:00 110/66 09/10/16 18:45 122/62 09/10/16 18:30 124/62 09/10/16 18:15 118/67 09/10/16 18:00 104/61 09/10/16 17:45 132/66 09/10/16 17:30 139/56 09/10/16 17:15 129/61 09/10/16 17:00 97.8 F 16 128/64 09/10/16 16:34 76 16 145/73 99 09/10/16 16:30 70 14 158/78 99 09/10/16 16:21 66 16 154/78 99 09/10/16 11:23 97.8 F 68 16 116/63 95 09/10/16 10:57 66 16 Intake and Output 09/10/16 09/11/16 09/11/16 23:59 07:59 15:59 Intake Total 650 / 650 600 / 600 Output Total 1500 / 1500 Balance -850 / -850 600 / 600 Intake: IV Fluids 50 / 50 Cleocin Premix 600 MG/50 50 / 50 ML 600 mg In 50 ml @ 50 mls/hr IVPB ONCE ONE Rx#: [id number] Oral 0 / 0 0 / 0 Intake, Rinseback and 600 / 600 600 / 600 Flushes Output: Urine 900 / 900 Total Dialysis (HD) 600 / 600 Output Other: Meal npo Percent of Meal Consumed 0% Stool Size Copious Moderate Stool Consistency liquid liquid soft Stool Color Brown Brown # Bowel Movements 1 Weight 88.8 kg Blood Glucose* 172 119 171 Hemodialysis Net Fluid 0 0 1558 Removed (mL) Patient Weight 09/11/16 23:59 Weight 88.8 kg - General Appearance General appearance: Present: well-developed, well-nourished EENT: Present: ATNC, mucous membranes moist, hearing intact, vision intact Neck: Present: supple Respiratory: Present: clear Cardiology: Present: no edema, normal S1, normal S2 Dialysis Vascular Access: Venous Catheter Gastrointestinal: Present: no tenderness, no guarding Integumentary: Present: warm and dry Neurologic: Present: alert and oriented x3 Psychiatric: Present: mood/affect appropriate, cooperative - Lab 09/11/16 04:15 09/11/16 04:15 Most recent lab results Calcium 7.5 mg/dL (8.6-10.8) L 09/11/16 04:15 Phosphorus 4.5 mg/dL (2.3-4.7) 09/11/16 04:15 Magnesium 1.8 mg/dL (1.6-2.6) 09/10/16 04:45 Urine Creatinine 35 mg/dL 09/09/16 01:45 - VTE Documentation of Mechanical Device: Intermittent pneumatic compression device Consult Discharge Plan - Plan Referrals: Kim Bales, FANY [Partnered Physician] - 09/20/16 10:00 am
[2016-09-11] MEDS ORDERED: 0.9 % Sodium Chloride 2,000 ML ONE (10:09)
[2016-09-11] MEDS: amLODIPine 5 MG TABLET PO SCH (10:52)
[2016-09-11] MEDS: ALPRAZolam 0.5 MG TABLET PO SCH ×3 (10:52→21:27)
[2016-09-11] MEDS: Diltiazem CD (24hr) 120 MG CAPSULE PO SCH (10:52)
[2016-09-11] MEDS: Calcium Acetate 667 MG CAPSULE PO SCH ×3 (10:57→17:55)
[2016-09-11] MEDS: Furosemide 20 MG TABLET PO SCH ×2 (10:57→17:55)
[2016-09-11] MEDS: Folic Acid 1 MG TABLET PO SCH (10:58)
--- NOTE | 2016-09-11 11:26 | Internal Med Progress Note ---
Date of Encounter: 09/11/16 Time of Encounter: 11:24 - Subjective Interval history: Patient seen and examined with family present at bedside. S/p HD session 2 this morning. Scheduled for EGD and colonoscopy later today. Noted to be hypertensive but has not received her antihypertensives Denies any discomfort at this time - Assessment and plan (1) Hyperglycemia Current Visit: Yes Status: Acute Assessment and plan: Hyperglycemia resolved, noted to have episodes of hypoglycemia due to which patient was asked to cut her insulin dose in half Pt to further decrease insulin pump dose in half given current FS readings accuchecks q3h monitor FS and BG ADA diet (2) Type I diabetes mellitus Current Visit: Yes Status: Chronic Assessment and plan: Continue to monitor blood sugars closely. Patient is noted to have had multiple previous hospitalizations with hyperglycemia and DKA. Hemoglobin A1c noted to be 5.3% and this may not be accurate given underlying anemia and renal disease. Qualifiers: Diabetes mellitus complication status: with kidney complications Diabetes mellitus complication detail: with nephropathy Qualified Code(s): E10.21 - Type 1 diabetes mellitus with diabetic nephropathy (3) Chest pain Current Visit: Yes Status: Acute Assessment and plan: Chest pain resolved at this time pt underwent nuclear stress test which was positive for ischemic perfusion disease will need LHC once cleared by nephrology cardiology on board and consultation appreciated Qualifiers: Chest pain type: precordial pain Qualified Code(s): R07.2 - Precordial pain (4) Chronic kidney disease Current Visit: Yes Status: Chronic Assessment and plan: Patient started HD yesterday (09/10/16) s/p HD session [address] pressroom worker on board for outpatient HD set up Nephrology on board, and consultation appreciated Continue phosphate binders, Zemplar, and Aranesp. Patient continues to require when necessary IV morphine for bone pain. Qualifiers: Chronic kidney disease stage: stage 4 (severe) Qualified Code(s): N18.4 - Chronic kidney disease, stage 4 (severe) (5) Pancytopenia Current Visit: Yes Status: Chronic (6) HTN (hypertension) Current Visit: Yes Status: Chronic Noted to be hypertensive earlier today Will give home antihypertensive and added Hydralazine 10mg IV q6h SBP>150 while NPO Qualifiers: Hypertension type: essential hypertension Qualified Code(s): I10 - Essential (primary) hypertension (7) Secondary hyperparathyroidism of renal origin Current Visit: Yes Status: Chronic (8) Hypothyroidism Current Visit: Yes Status: Chronic Assessment and plan: Continue levothyroxine. Qualifiers: Hypothyroidism type: unspecified Qualified Code(s): E03.9 - Hypothyroidism , unspecified (9) Pancreatic insufficiency Current Visit: Yes Status: Chronic (10) Anemia Current Visit: Yes Status: Chronic Assessment and plan: s/p 2unit PRBC transfusion Will go through EGD and colonoscopy today continue Aranesp Qualifiers: Anemia type: other cause Other causes of anemia: chronic disease, kidney Qualified Code(s): N18.9 - Chronic kidney disease, unspecified; D63.1 - Anemia in chronic kidney disease (11) DVT prophylaxis Current Visit: Yes Status: Acute SCD - Constitutional Vitals: Temp Pulse Resp BP Pulse Ox 99.6 F 75 16 172/81 95 09/11/16 11:12 09/11/16 11:12 09/11/16 11:12 09/11/16 11:12 09/11/16 11:12 General appearance: Present: A&O X 3, no acute distress, answers questions appropriately - Head Head exam: Present: atraumatic, normocephalic - Eye Eye exam: Present: normal appearance, conjuntiva pink, sclera anicteric - Respiratory Respiratory exam: Present: CTAB. Absent: respiratory distress, wheezes - Cardiovascular Cardiovascular exam: Present: RRR, +S1, +S2. Absent: diastolic murmur, gallop, rubs, systolic murmur Additional comments: right chest wall HD cath in place - GI/Abdominal GI/Abdominal exam: Present: normal bowel sounds, soft, no peritoneal signs. Absent: distended, tenderness - Extremities Exam Extremities exam: Present: pedal edema (pitting edema bilaterally ), warm, radial pulses palpable and symetrical. Absent: calf tenderness - Neurological Exam Neurological exam: Present: alert, oriented X3 - Psychiatric Psychiatric exam: Present: normal affect, normal mood Internal Medicine: Result - Labs CBC & Chem 7: 09/11/16 04:15 09/11/16 04:15 Labs: Short CBC 09/11/16 Range/Units 04:15 WBC 1.6 L (4.3-11.1) K/mcL Hgb 9.1 L (11.5-15.4) g/dL Hct 26.1 L (35.3-44.9) % Plt Count 85 L (140-400) K/mcL Neutrophils # 0.7 L (1.6-8.9) K/mcL BMP 09/11/16 04:15 Sodium 137 Potassium 4.6 H Chloride 106 Carbon Dioxide 25 BUN 37 H D Creatinine 1.90 H Glucose 85 Calcium 7.5 L Liver Function 09/11/16 Range/Units 04:15 Albumin 2.9 L (3.5-5.0) g/dL - ABG Interpretation ABG results: PT/INR, D-dimer PT 11.5 Seconds (9.4-12.1) 09/10/16 04:45 - Impressions Impressions Guidance Needle Placement Ultrasound 09/10/16 00:00 IMPRESSION: Successful ultrasound and fluoroscopy guided tunneled catheter placement . D/ / Corky Doll MD / Corky Doll MD Interpreting Provider: Corky Doll MD Insertion Tunneled Catheter 09/10/16 00:00 IMPRESSION: Successful ultrasound and fluoroscopy guided tunneled catheter placement . D/ / Corky Doll MD / Corky Doll MD Interpreting Provider: Corky Doll MD - VTE Documentation of Mechanical Device: Intermittent pneumatic compression device Consult Discharge Plan - Plan Referrals: Kim Bales CNP [Partnered Physician] - 09/20/16 10:00 am
--- NOTE | 2016-09-11 11:49 | Gastroenterology Consult Note ---
<Bryant De Leon - Last Filed: 09/11/16 11:46> Date of Encounter: 09/11/16 Time of Encounter: 11:35 - Assessment and plan (1) Pancytopenia Current Visit: Yes Status: Chronic Assessment and plan: Pt follows with Hematology for this. Workup per Hematology. Continue to monitor CBC and transfuse PRBC as needed. (2) Abnormal stress test Current Visit: Yes Status: Acute Assessment and plan: Rule out GI bleed with EGD and colonoscopy today, prior to LHC. Keep NPO. (3) ESRD (end stage renal disease) on dialysis Current Visit: Yes Status: Acute Assessment and plan: Management per Nephrology. - Time Spent With Patient Total time spent is greater than 50% in coordination of care (as documented) at patient's floor/unit and/or counseling patient: GI History of Present Illness - Data of Consult Patient: new to practice Consult date: 09/11/16 Requesting Physician: Maryann Banuelos MD - Consult Narrative Reason for consult: R/o GI Bleed History of present illness: Ms. Elkins is a 41 year old female with PMHx of CHF, DM, GERD, HTN, CKD 4, DARINEL, and pancytopenia who was admitted for evaluation or chest pain with abnormal stress test. Cardiology was consulted and is planning C. Nephrology was consulted due to CKD which has progressed to ESRD and has started HD this admission. We were consulted to rule out GI bleed. Hgb on admission was 7.4 and has received 2 units PRBC this admission. Hgb this AM is 9.1. Cardiology is planning the C following evaluation for GI bleed. Procedures: EGD 03/03/2014 Dr. Benítez: Normal Colonoscopy 07/14/2013 Dr. Benítez: Normal NSAIDs: None Anticoagulation: None Past Med Surg Social Fam HX - Past Medical History Medical history: arthritis, CHF, diabetes, GERD, hypertension, kidney stones, renal disease, thyroid disease, other Psychiatric history: anxiety, depression - Past Surgical History Surgical History: cholecystectomy, hysterectomy, other - Social History Smoking Status: Never smoker Smokeless Tobacco Status: No Alcohol use: none Drug use: none - Family History Mother Hx Family Neurologic Disorders: Yes (fibromyglia) Father Hx Family Cardiac Disorders: Yes (stents, MO, cath, HTN, DVT) Hx Family Endocrine Disorder: Yes (diabetes) Hx Family Neurologic Disorders: Yes (stroke) - Gastrointestinal Gastrointestinal: Present: as per HPI - Constitutional Constitutional: as per HPI - EENT Eyes: as per HPI Ears: Present: as per HPI Nose, mouth and throat: Present: as per HPI - Cardiovascular Cardiovascular ROS: Present: as per HPI - Respiratory Respiratory IM: Present: as per HPI - Genitourinary Genitourinary: Absent: change in color, Urinary frequency - Neurological ROS Neurological GI: Present: as per HPI - Hematologic/Lymphatic Hematologic/Lymphatic pediatric: Present: as per HPI - Musculoskeletal Musculoskeletal ROS GI: Present: as per HPI - Integumentary Integumentary GI: Present: as per HPI - Psychiatric ROS Psychiatric GI: Present: as per HPI - Endocrine Endocrine IM: Present: as per HPI - Constitutional Vitals: Temp Pulse Resp BP Pulse Ox 99.6 F 75 16 172/81 95 09/11/16 11:12 09/11/16 11:12 09/11/16 11:12 09/11/16 11:12 09/11/16 11:12 General appearance: Present: cooperative, A&O X 3, no acute distress, answers questions appropriately - Head Head exam: Present: atraumatic, normocephalic - Eye Eye exam: Present: normal appearance, sclera anicteric - ENT ENT exam: Present: mucous membranes dry - Neck Neck exam general surgery: Present: normal inspection, trachea midline - Respiratory Respiratory exam: Present: CTAB. Absent: rales, rhonchi - Cardiovascular Cardiovascular exam: Present: RRR, +S1, +S2 - GI/Abdominal GI/Abdominal exam: Present: soft, no peritoneal signs. Absent: distended, firm , guarding, tenderness - Rectal Rectal exam: Present: deferred - Extremities Exam Extremities exam: Present: warm - Neurological Exam Neurological exam: Present: no focal deficits - Psychiatric Psychiatric exam: Present: normal affect, normal mood - Skin Skin exam: Present: dry, intact, normal color, warm Results - Labs CBC & Chem 7: 09/11/16 04:15 09/11/16 04:15 Labs: Last Result Calcium 7.5 mg/dL (8.6-10.8) L 09/11/16 04:15 Iron 106 mcg/dL (50-170) 09/08/16 04:30 % Saturation 54 % (15-50) H 09/08/16 04:30 Transferrin 140 mg/dL (180-382) L 09/08/16 04:30 Troponin I 0.02 ng/mL (0-0.03) 09/07/16 04:54 Vitamin B12 249 pg/mL (213-816) 09/08/16 04:30 Folate 6.7 ng/mL (7.0-31.4) L 09/08/16 04:30 Entire Visit Hgb 9.1 g/dL (11.5-15.4) L 09/11/16 04:15 Hct 26.1 % (35.3-44.9) L 09/11/16 04:15 PT 11.5 Seconds (9.4-12.1) 09/10/16 04:45 Folate 6.7 ng/mL (7.0-31.4) L 09/08/16 04:30 - ABG ABG results: PT/INR, D-dimer PT 11.5 Seconds (9.4-12.1) 09/10/16 04:45 - Impressions Impressions Guidance Needle Placement Ultrasound 09/10/16 00:00 IMPRESSION: Successful ultrasound and fluoroscopy guided tunneled catheter placement . D/ / Corky Doll MD / Corky Doll MD Interpreting Provider: Corky Doll MD Insertion Tunneled Catheter 09/10/16 00:00 IMPRESSION: Successful ultrasound and fluoroscopy guided tunneled catheter placement . D/ / Corky Doll MD / Corky Doll MD Interpreting Provider: Corky Doll MD Consult Discharge Plan - Plan Referrals: Kim Bales CNP [Partnered Physician] - 09/20/16 10:00 am <Myriam Benítez - Last Filed: 09/11/16 17:42> Date of Encounter: 09/11/16 Time of Encounter: 17:30 - Time Spent With Patient Total time spent is greater than 50% in coordination of care (as documented) at patient's floor/unit and/or counseling patient: GI History of Present Illness - Data of Consult Requesting Physician: Maryann Banuelos MD - Consult Narrative History of present illness: Ms. Elkins is a 41 year old female - Constitutional Vitals: Temp Pulse Resp BP Pulse Ox 98.9 F 72 16 140/77 98 09/11/16 15:58 09/11/16 15:58 09/11/16 15:58 09/11/16 15:58 09/11/16 15:58 Results - Labs CBC & Chem 7: 09/11/16 04:15 09/11/16 04:15 Labs: Last Result Calcium 7.5 mg/dL (8.6-10.8) L 09/11/16 04:15 Iron 106 mcg/dL (50-170) 09/08/16 04:30 % Saturation 54 % (15-50) H 09/08/16 04:30 Transferrin 140 mg/dL (180-382) L 09/08/16 04:30 Troponin I 0.02 ng/mL (0-0.03) 09/07/16 04:54 Vitamin B12 249 pg/mL (213-816) 09/08/16 04:30 Folate 6.7 ng/mL (7.0-31.4) L 09/08/16 04:30 Entire Visit Hgb 9.1 g/dL (11.5-15.4) L 09/11/16 04:15 Hct 26.1 % (35.3-44.9) L 09/11/16 04:15 PT 11.5 Seconds (9.4-12.1) 09/10/16 04:45 Folate 6.7 ng/mL (7.0-31.4) L 09/08/16 04:30 - ABG ABG results: PT/INR, D-dimer PT 11.5 Seconds (9.4-12.1) 09/10/16 04:45 - Attending Attestation I examined this patient and my medical decision-making was reviewed with the TECHNICAL TRAINING INSTRUCTOR/PA/Advanced Practice Nurse/Resident Physician. I agree with the documented findings, disposition and treatment plan as described except to the extent set forth below.
[2016-09-11] MEDS: *HR* Dextrose 50 % in Water (Syg) 50 ML SYRINGE IVP PRN (12:13)
--- NOTE | 2016-09-11 14:44 | Event Note ---
Date of Encounter: 09/11/16 Time of Encounter: 14:42 - Cardiology Event Note Mrs. Elkins is in dialysis today and planning for EGD colonoscopy this afternoon with Dr. Benítez. We will keep her NPO after midnight for possible LHC for abnormal stress test tomorrow if GI work-up is normal.
[2016-09-11] MEDS: Cyanocobalamin (B-12) 1,000 MCG/ML VIAL IM SCH (14:53)
[2016-09-11] MEDS: D5% in Water 1,000 ML IVC PRN (14:55)
[2016-09-11] MEDS ORDERED: Simethicone 40 MG/0.6 ML MLS IR ONE ×2 (16:19→17:42)
[2016-09-11] MEDS: INSULIN PUMP SQ SCH (16:25)
[2016-09-11] MEDS ORDERED: *HR* Midazolam HCl 5 MG/5 ML VIAL IVP ONE ×2 (17:42→18:02)
[2016-09-11] MEDS ORDERED: Tetracaine/Benzocaine/Butamben 200MG/SPRAY (100SPY/BOT) MM ONE (17:42)
[2016-09-11] MEDS ORDERED: *HR* FentaNYL (PF) 100 MCG/2 ML VIAL ONE ×2 (17:43→18:02)
--- NOTE | 2016-09-11 17:43 | Pre-Sedation Evaluation ---
Pre-sedation evaluation - Pre-sedation checklist Date of procedure: 09/10/16 Procedure: permacath insertion Recent Vitals: Last Vital Signs Temp 98.9 F 09/11/16 15:58 Pulse 72 09/11/16 15:58 Resp 16 09/11/16 15:58 BP 140/77 09/11/16 15:58 Pulse Ox 98 09/11/16 15:58 H&P (including ROS) documented in medical record: Yes Previous reaction to sedatives/anesthetics: No Dietary Status: NPO after Midnight Dentition: No loose teeth or bridges ASA Classification *see protocol: CLASS III-Severe systemic disease Plan of Care: Pt appropriate candidate for procedure/moderate/conscious sedation , Risks/benefits of procedure/sedation discussed w/ patient/family
[2016-09-11] MEDS: *HR* FentaNYL (PF) 100 MCG/2 ML VIAL IVP PRN ×4 (17:56→18:06)
[2016-09-11] MEDS: *HR* Midazolam HCl 5 MG/5 ML VIAL IVP PRN ×4 (17:56→18:06)
[2016-09-12] MEDS: hydrALAZINE 25 MG TABLET PO SCH ×4 (00:01→23:21)
[2016-09-12] MEDS ORDERED: Loperamide 1 MG/5 ML UDC PO PRN (01:57)
[2016-09-12] MEDS: *HR* Promethazine 25 MG/ML VIAL IVP PRN ×2 (02:33→15:51)
[2016-09-12] MEDS: *HR* HYDROcodone/Acet 5/325 mg TABLET PO PRN (06:12)
[2016-09-12 06:27] LABS: Hemoglobin 9.2 g/dL (11.5-15.4); Platelet Count 101 K/mcL (140-400)
[2016-09-12 06:29] LABS: Eosinophils % 1.1 %; Hematocrit 26.8 % (35.3-44.9); Immature Platelets 1.9 % (1.1-6.1); Lymphocytes # 0.6 K/mcL (0.6-4.6); Lymphocytes % 29.3 %; Mean Corpuscular HGB Conc 34.3 g/dL (31.6-35.5); Mean Corpuscular Hemoglobin 32.9 pg (28.0-33.3); Mean Corpuscular Volume 95.7 fL (83.0-100.0); Mean Platelet Volume 9.8 fL (9.4-12.4); Monocytes # 0.2 K/mcL (0.0-1.3); Monocytes % 11.7 %; Neutrophils # 1.1 K/mcL (1.6-8.9); Red Cell Distribution Width 15.2 % (11.5-14.5); Segmented Neutrophils % 57.9 %
[2016-09-12 06:38] LABS: Calcium 7.7 mg/dL (8.6-10.8); Magnesium 1.8 mg/dL (1.6-2.6); Phosphorous 3.7 mg/dL (2.3-4.7)
[2016-09-12] MEDS: ALPRAZolam 0.5 MG TABLET PO SCH ×3 (08:21→20:17)
[2016-09-12] MEDS: Insulin LISPRO 300 UNITS/3 ML VIAL SQ SCH ×4 (08:21→20:34)
[2016-09-12] MEDS: Diltiazem CD (24hr) 120 MG CAPSULE PO SCH (08:21)
[2016-09-12] MEDS: amLODIPine 5 MG TABLET PO SCH (08:21)
[2016-09-12] MEDS: Folic Acid 1 MG TABLET PO SCH (08:22)
[2016-09-12] MEDS: Furosemide 20 MG TABLET PO SCH ×2 (08:22→15:51)
[2016-09-12] MEDS: Calcium Acetate 667 MG CAPSULE PO SCH ×3 (08:22→15:52)
[2016-09-12] MEDS: *HR* Morphine 2 MG/ML SYRINGE IVP PRN ×4 (08:22→20:18)
[2016-09-12 08:28] LABS: Platelet Estimate Decreased (Normal)
[2016-09-12] MEDS ORDERED: *HR* Heparin 10,000 UNIT/10 ML VIAL IV PRN (08:31)
[2016-09-12] MEDS ORDERED: 0.9 % Sodium Chloride 250 ML IVC PRN (08:31)
--- NOTE | 2016-09-12 09:56 | Cardiology Progress Note ---
Date of Encounter: 09/12/16 Time of Encounter: 09:43 Assessment and Plan (1) Abnormal stress test Current Visit: Yes Status: Acute Stress test completed 09/08/16 showed small sized mild to moderate intensity, reversible basal to mid anterior defect. Reduction possibly due to ischemia. She has typical chest pain symptoms. Cardiac risk factors include type I DM, HTN, and significant family history. ( Brother and sister with [place] in late 30's, father [place] in his 50's.) LHC in 2013 showed normal coronary arteries. I discuss LHC indications, risks, benefits, and alternatives vs medical management. She would like to proceed with LHC. Unfortunately she has progressive CKD stage IV and was newly started on HD this admission. She also have chronic anemia, Hgb as low as7.0 this stay and she recieved 2 units PRBC. She underwent EGD that showed no bleeding. Colonoscopy showed colon wall hematoma possibly from colonoscopy. No active bleeding otherwise. I discussed findings with Dr. Benítez. Since LHC is not urgent we will let hematoma heal for one week prior to doing LHC. We will re-evaluate in out-pt setting. Cardiology f/u will be made in 1-2 weeks. Add statin and imdur. Will consider adding asa in out-pt setting. Continue CCB for history of tachycardia. Recommend re-checking HGb in one week. (2) Chest pain Current Visit: Yes Status: Acute See plan above. Troponin negative. EKG with no acute findings. Qualifiers: Chest pain type: precordial pain Qualified Code(s): R07.2 - Precordial pain Discussion w patient/family: The assessment and plan as outlined above was discussed with the patient and/or family members who expressed understanding and agreement. All questions were answered. Thank you for involving us in the care of your patient. Please call with any questions. Subjective Principal diagnosis: N/V, Advanced renal dysfunction Interval history: Reports chest pain improved. Mild chest pain when up to bathroom last night. Objective Vital Signs, Last 4 Hours Temp Pulse Resp BP Pulse Ox 09/12/16 06:56 98.2 F 75 16 146/80 94 General: Conversant, No Apparent Distress HEENT: Atraumatic, Normocephaly, Mucus Membranes Moist Neck: No JVD, Normal carotid pulses Cardiac: Reg Rate and Rhythm, Normal S1 and S2, No Murmur Lungs: Normal Breath Sounds, No Wheeze, Rales, Rhonchi Neuro: Alert and responsive, No focal deficits noted Abdomen: Soft, Non-Tender Skin: No rashes noted on visualized skin Musculoskeletal: No Chest Wall Tenderness Extremities: No Clubbing, No Cyanosis, No Edema, Normal Pulses Results 09/12/16 06:15 09/12/16 06:15 Lab Results 09/12/16 09/12/16 06:15 06:15 WBC 1.9 L Hgb 9.2 L Hct 26.8 L Plt Count 101 L Sodium 139 Potassium 4.0 Chloride 107 Carbon Dioxide 26 BUN 17 D Creatinine 1.89 H Glucose 83 Calcium 7.7 L Magnesium 1.8 - Imaging and Cardiology Stress Test: report reviewed Echo: report reviewed - VTE Documentation of Mechanical Device: Intermittent pneumatic compression device Consult Discharge Plan - Plan Referrals: Kim Bales CNP [Partnered Physician] - 09/20/16 10:00 am
[2016-09-12] MEDS ORDERED: Nitroglycerin 0.4 MG TAB.SUBL SL PRN (09:57)
--- NOTE | 2016-09-12 10:08 | Internal Med Progress Note ---
Date of Encounter: 09/12/16 Time of Encounter: 09:15 - Subjective Interval history: Patient seen and examined with family present at bedside. s/p EGD and Colonoscopy. EGD negative for any acute bleed, colonoscopy reported a hematoma on colon wall which can be secondary to the procedure, due to which holding off LHC for a week is recommended. Findings were discussed with cardiology and optimization of medical management is recommended at this time. Patient is to receive session 3 of HD today. Likely discharge in am - Assessment and plan (1) Hyperglycemia Current Visit: Yes Status: Acute Assessment and plan: BG better controlled and will continue to titrate insulin therapy on patient's insulin pump will continue ADA diet and resume ACHS accuchecks SS insulin algorithm as needed will continue to closely monitor FS and BG (2) Type I diabetes mellitus Current Visit: Yes Status: Chronic Assessment and plan: Continue to monitor blood sugars closely. Patient is noted to have had multiple previous hospitalizations with hyperglycemia and DKA. Hemoglobin A1c noted to be 5.3% and this may not be accurate given underlying anemia and renal disease. Qualifiers: Diabetes mellitus complication status: with kidney complications Diabetes mellitus complication detail: with nephropathy Qualified Code(s): E10.21 - Type 1 diabetes mellitus with diabetic nephropathy (3) Chest pain Current Visit: Yes Status: Acute Assessment and plan: Chest pain resolved at this time pt underwent nuclear stress test which was positive for ischemic perfusion disease cardiology on board and consultation appreciated Medical opitimization recommended given colon wall hematoma. Outpatient LHC recommended. Aspirin to be added as outpatient. Imdur and Statin added by cardiology. Pt currently asymptomatic. Qualifiers: Chest pain type: precordial pain Qualified Code(s): R07.2 - Precordial pain (4) Chronic kidney disease Current Visit: Yes Status: Chronic Assessment and plan: Patient started HD yesterday (09/10/16) will receive 3rd session of HD today (09/12/16) Permacath in place chisel worker on board for outpatient HD set up Nephrology on board, and consultation appreciated Continue phosphate binders, Zemplar, and Aranesp. Patient continues to require when necessary IV morphine for bone pain. States her PCP has been wanted to refer her to pain management. Will attempt to titrate off IV narcotics and initiate long acting narcotics for pain control Qualifiers: Chronic kidney disease stage: stage 4 (severe) Qualified Code(s): N18.4 - Chronic kidney disease, stage 4 (severe) (5) Pancytopenia Current Visit: Yes Status: Chronic (6) HTN (hypertension) Current Visit: Yes Status: Chronic BP within acceptable range continue home meds Hydralazine 10mg IV q6h SBP>150 while NPO Qualifiers: Hypertension type: essential hypertension Qualified Code(s): I10 - Essential (primary) hypertension (7) Secondary hyperparathyroidism of renal origin Current Visit: Yes Status: Chronic (8) Hypothyroidism Current Visit: Yes Status: Chronic Assessment and plan: Continue levothyroxine. Qualifiers: Hypothyroidism type: unspecified Qualified Code(s): E03.9 - Hypothyroidism , unspecified (9) Pancreatic insufficiency Current Visit: Yes Status: Chronic (10) Anemia Current Visit: Yes Status: Chronic Assessment and plan: s/p 2unit PRBC transfusion (09/09/16) H&H low but acceptable s/p EGD and colonoscopy noted to have colon wall hematoma due to which no aspirin or LHC recommended at this time. No active bleeding reported. continue Aranesp Qualifiers: Anemia type: other cause Other causes of anemia: chronic disease, kidney Qualified Code(s): N18.9 - Chronic kidney disease, unspecified; D63.1 - Anemia in chronic kidney disease (11) DVT prophylaxis Current Visit: Yes Status: Acute SCD - Constitutional Vitals: Temp Pulse Resp BP Pulse Ox 98.2 F 75 16 146/80 94 09/12/16 06:56 09/12/16 06:56 09/12/16 06:56 09/12/16 06:56 09/12/16 06:56 General appearance: Present: A&O X 3, no acute distress, answers questions appropriately - Head Head exam: Present: atraumatic, normocephalic - Eye Eye exam: Present: normal appearance, conjuntiva pink, sclera anicteric - Respiratory Respiratory exam: Present: CTAB. Absent: accessory muscle use, rales, rhonchi, wheezes - Cardiovascular Cardiovascular exam: Present: RRR, +S1, +S2. Absent: diastolic murmur, gallop, rubs, systolic murmur - GI/Abdominal GI/Abdominal exam: Present: normal bowel sounds, soft, no peritoneal signs. Absent: distended, tenderness - Extremities Exam Extremities exam: Present: pedal edema, warm, radial pulses palpable and symetrical. Absent: calf tenderness - Neurological Exam Neurological exam: Present: alert, oriented X3 - Psychiatric Psychiatric exam: Present: normal affect, normal mood - Skin Additional comments: right chest wall permacath in place-dressing intact. Internal Medicine: Result - Labs CBC & Chem 7: 09/12/16 06:15 09/12/16 06:15 Labs: Short CBC 09/12/16 Range/Units 06:15 WBC 1.9 L (4.3-11.1) K/mcL Hgb 9.2 L (11.5-15.4) g/dL Hct 26.8 L (35.3-44.9) % Plt Count 101 L (140-400) K/mcL Neutrophils # 1.1 L (1.6-8.9) K/mcL BMP 09/12/16 06:15 Sodium 139 Potassium 4.0 Chloride 107 Carbon Dioxide 26 BUN 17 D Creatinine 1.89 H Glucose 83 Calcium 7.7 L - ABG Interpretation ABG results: PT/INR, D-dimer PT 11.5 Seconds (9.4-12.1) 09/10/16 04:45 - VTE Documentation of Mechanical Device: Intermittent pneumatic compression device Consult Discharge Plan - Plan Referrals: Kim Bales CNP [Partnered Physician] - 09/20/16 10:00 am
--- NOTE | 2016-09-12 11:14 | Nephrology Progress Note ---
Date of Encounter: 09/12/16 Time of Encounter: 11:11 - Assessment and Plan (1) Acute kidney injury superimposed on chronic kidney disease Current Visit: Yes Status: Acute Patient appears to have progressed to ESRD and has possible uremic symptoms. Will dialyze in [place], [place] as an outpatient. HD MWF for now. She reports she is feeling better after fluid has been removed. (2) Hyperparathyroidism Current Visit: Yes Status: Acute on vitamin d and zemplar (3) Chest pain Current Visit: Yes Status: Acute resolved. Per primary team. Qualifiers: Chest pain type: precordial pain Qualified Code(s): R07.2 - Precordial pain (4) Diabetes type I Current Visit: No Status: Acute per primary team. Qualifiers: Diabetes mellitus complication status: with kidney complications Diabetes mellitus complication detail: with chronic kidney disease Chronic kidney disease stage: stage 3 (moderate) Qualified Code(s): E10.22 - Type 1 diabetes mellitus with diabetic chronic kidney disease; N18.3 - Chronic kidney disease, stage 3 (moderate) (5) HTN (hypertension) Current Visit: Yes Status: Chronic mild elevated blood pressure. Should improve with UF. Qualifiers: Hypertension type: essential hypertension Qualified Code(s): I10 - Essential (primary) hypertension Subjective Principal diagnosis: N/V, Advanced renal dysfunction Interval history: Patient seen and evaluated. Patient still with nausea. No other new complaint. Her ROS otherwise is stable. Objective - Vital Signs Vital signs: Vital Signs Temp Pulse Resp BP Pulse Ox 09/12/16 08:15 72 09/12/16 06:56 98.2 F 75 16 146/80 94 09/12/16 04:15 73 16 95 09/12/16 04:13 98 F 73 16 140/63 95 09/12/16 00:05 86 16 95 09/11/16 23:53 99.3 F 80 16 151/75 94 09/11/16 21:45 78 09/11/16 19:19 97.7 F 78 16 135/81 99 09/11/16 19:00 73 16 135/81 99 09/11/16 18:43 74 18 135/66 99 09/11/16 18:36 75 18 130/63 99 09/11/16 18:31 73 16 129/63 99 09/11/16 18:26 73 16 133/68 98 09/11/16 18:21 72 16 130/67 98 09/11/16 18:16 74 18 158/80 98 09/11/16 18:11 71 16 127/64 98 09/11/16 18:06 72 16 77/44 99 09/11/16 18:01 77 18 153/77 99 09/11/16 17:56 81 18 172/81 96 09/11/16 17:53 80 18 155/82 97 09/11/16 15:58 98.9 F 72 16 140/77 98 09/11/16 15:05 74 09/11/16 13:03 16 95 09/11/16 12:11 16 153/78 92 09/11/16 11:12 99.6 F 75 16 172/81 95 Intake and Output 09/11/16 09/12/16 09/12/16 23:59 07:59 15:59 Intake Total 100 / 100 240 / 240 Balance 100 / 100 240 / 240 Intake: IV Fluids 100 / 100 Dextrose 5% 1,000 ML @ 100 / 100 100 mls/hr IVC .Q10H PRN Rx#:[id number] Oral 240 / 240 Other: Meal Breakfast Percent of Meal Consumed 100% Stool Size Moderate Stool Consistency loose liquid Stool Color Brown Yellow # Bowel Movements 1 Weight 89.2 kg Blood Glucose* 166 76 75 Patient Weight 09/12/16 23:59 Weight 89.2 kg - General Appearance General appearance: Present: well-developed, well-nourished EENT: Present: ATNC Neck: Present: supple Additional Comments: respirations are unlabored. Cardiology: Present: edema (1+ edema bilateral lower extremities. ), regular rate Dialysis Vascular Access: Venous Catheter Neurologic: Present: alert and oriented x3 Psychiatric: Present: mood/affect appropriate - Lab 09/12/16 06:15 09/12/16 06:15 Most recent lab results Calcium 7.7 mg/dL (8.6-10.8) L 09/12/16 06:15 Phosphorus 3.7 mg/dL (2.3-4.7) 09/12/16 06:15 Magnesium 1.8 mg/dL (1.6-2.6) 09/12/16 06:15 Urine Creatinine 35 mg/dL 09/09/16 01:45 - VTE Documentation of Mechanical Device: Intermittent pneumatic compression device Consult Discharge Plan - Plan Referrals: Kim Bales, FANY [Partnered Physician] - 09/20/16 10:00 am
[2016-09-12] MEDS: Cyanocobalamin (B-12) 1,000 MCG TABLET PO SCH (12:23)
[2016-09-12] MEDS: Isosorbide MONOnitrate (24 HR) 30 MG TAB.ER.24H PO SCH (12:23)
[2016-09-12] MEDS: INSULIN PUMP SQ SCH (15:50)
[2016-09-12] MEDS: *HR* Dextrose 50 % in Water (Syg) 50 ML SYRINGE IVP PRN (20:34)
[2016-09-13] MEDS: *HR* Morphine 2 MG/ML SYRINGE IVP PRN ×2 (03:20→08:13)
[2016-09-13 03:40] LABS: Basophils % 0.4 %; Eosinophils % 1.1 %; Hemoglobin 9.1 g/dL (11.5-15.4); Red Cell Distribution Width 14.9 % (11.5-14.5)
[2016-09-13 03:42] LABS: Hematocrit 27.3 % (35.3-44.9); Immature Platelets 2.1 % (1.1-6.1); Lymphocytes # 0.7 K/mcL (0.6-4.6); Lymphocytes % 25.2 %; Mean Corpuscular HGB Conc 33.3 g/dL (31.6-35.5); Mean Corpuscular Hemoglobin 32.3 pg (28.0-33.3); Mean Corpuscular Volume 96.8 fL (83.0-100.0); Monocytes # 0.2 K/mcL (0.0-1.3); Neutrophils # 1.7 K/mcL (1.6-8.9); Red Blood Count 2.82 M/mcL (3.82-4.97); Segmented Neutrophils % 64.3 %
[2016-09-13 03:51] LABS: Platelet Count 99 K/mcL (140-400)
[2016-09-13 03:53] LABS: Calcium 7.8 mg/dL (8.6-10.8); Magnesium 1.6 mg/dL (1.6-2.6); Phosphorous 3.1 mg/dL (2.3-4.7); Potassium 4.4 mEq/L (3.5-4.5)
[2016-09-13 07:01] VITALS: BP 146/80
[2016-09-13] MEDS: Insulin LISPRO 300 UNITS/3 ML VIAL SQ SCH (07:22)
[2016-09-13] MEDS: Folic Acid 1 MG TABLET PO SCH (08:12)
[2016-09-13] MEDS: hydrALAZINE 25 MG TABLET PO SCH (08:12)
[2016-09-13] MEDS: Cyanocobalamin (B-12) 1,000 MCG TABLET PO SCH (08:12)
[2016-09-13] MEDS: Calcium Acetate 667 MG CAPSULE PO SCH (08:12)
[2016-09-13] MEDS: Isosorbide MONOnitrate (24 HR) 30 MG TAB.ER.24H PO SCH (08:12)
[2016-09-13] MEDS: Diltiazem CD (24hr) 120 MG CAPSULE PO SCH (08:13)
[2016-09-13] MEDS: Furosemide 20 MG TABLET PO SCH (08:13)
[2016-09-13] MEDS: ALPRAZolam 0.5 MG TABLET PO SCH (08:13)
[2016-09-13] MEDS: amLODIPine 5 MG TABLET PO SCH (08:13)
[2016-09-13] MEDS ORDERED: Renal Vitamin 1 MG CAPSULE PO SCH (09:15)
[2016-09-13] MEDS: *HR* Promethazine 25 MG/ML VIAL IVP PRN (09:19)
--- NOTE | 2016-09-13 09:32 | Discharge Summary ---
Date of Encounter: 09/13/16 Time of Encounter: 09:27 - Discharge Diagnosis (1) Chest pain Priority: Primary Status: Resolved Qualifiers: Chest pain type: precordial pain Qualified Code(s): R07.2 - Precordial pain (2) Diabetes type I Priority: Secondary Status: Chronic Qualifiers: Diabetes mellitus complication status: with kidney complications Diabetes mellitus complication detail: with chronic kidney disease Chronic kidney disease stage: stage 3 (moderate) Qualified Code(s): E10.22 - Type 1 diabetes mellitus with diabetic chronic kidney disease; N18.3 - Chronic kidney disease, stage 3 (moderate) (3) DVT prophylaxis Priority: Secondary Status: Acute (4) ESRD (end stage renal disease) on dialysis Priority: Secondary Status: Acute (5) HTN (hypertension) Priority: Secondary Status: Chronic Qualifiers: Hypertension type: essential hypertension Qualified Code(s): I10 - Essential (primary) hypertension (6) Hyperglycemia Priority: Secondary Status: Resolved (7) Hypothyroidism Priority: Secondary Status: Chronic Qualifiers: Hypothyroidism type: unspecified Qualified Code(s): E03.9 - Hypothyroidism , unspecified (8) Pancreatic insufficiency Priority: Secondary Status: Chronic (9) Pancytopenia Priority: Secondary Status: Chronic - Discharge Medications Prescriptions: Atorvastatin [Lipitor] 40 mg PO HS #30 tablet HYDROcodone/Acet 7.5/325 mg [Bucklin 7.5-325 mg] 1 tab PO Q6H PRN #20 tablet PRN Reason: Severe Pain Isosorbide MONOnitrate (24 HR) [Imdur] 30 mg PO DAILY #30 tab.er.24h Home Medications: Rifaximin [Xifaxan] 550 mg PO AD 12/21/15 [History] Ergocalciferol (VITAMIN D2) [Drisdol (50,000 Unit)] 50,000 unit PO QWEEK #12 capsule 12/24/15 [Rx] Furosemide [Lasix] 20 mg PO BID tablet 12/24/15 [Rx] Levothyroxine [Synthroid] 100 mcg PO 0630 tablet 12/24/15 [Rx] amLODIPine [Norvasc] 10 mg PO DAILY #30 tablet 12/24/15 [Rx] hydrALAZINE [HydrALAZINE] 50 mg PO Q8HR #90 tablet 12/24/15 [Rx] ALPRAZolam [Xanax 0.5 MG Tablet] 0.5 mg PO TID 05/22/16 [History] Cyanocobalamin (B-12) [Vitamin B12] 1,000 mcg IM QMONTH 05/22/16 [History] Folic Acid 1 mg PO DAILY #0 05/22/16 [History] Lipase/Protease/Amylase [Faviola Haile 6,000 Units Capsule] 3 each PO TIDWM 05/22/16 [History] SUMAtriptan Succinate [Imitrex] 100 mg PO DAILY PRN 05/22/16 [History] Calcitriol 0.5 mcg PO DAILY 09/06/16 [History] Calcium Acetate [Phos-LO] 667 mg PO TIDWM 09/06/16 [History] CloNIDine Patch [Catapres-Tts] 0.6 mg TD QWEEK 09/06/16 [History] Diltiazem CD (24hr) [Cardizem CD] 120 mg PO DAILY 09/06/16 [History] Sodium Bicarbonate 650 mg PO TID 09/06/16 [History] Subcutaneous Insulin Pump [T:Slim] 1 each ACHS 09/06/16 [History] Atorvastatin [Lipitor] 40 mg PO HS #30 tablet 09/13/16 [Rx] HYDROcodone/Acet 7.5/325 mg [Bucklin 7.5-325 mg] 1 tab PO Q6H PRN #20 tablet 09/13 [Rx] Isosorbide MONOnitrate (24 HR) [Imdur] 30 mg PO DAILY #30 tab.er.24h 09/13/16 [ Rx] Allergies/Adverse Reactions: Allergies cephalexin [From Keflex] Allergy (Verified 03/19/16 11:11) Hives patient states she can take benadryl with this ciprofloxacin [From Cipro] Allergy (Verified 03/19/16 11:11) Hives patient states she can take benadryl with this levofloxacin [From Levaquin] Allergy (Verified 03/19/16 11:11) Difficulty Breathing ofloxacin Allergy (Verified 03/19/16 11:11) Rash patient states she can take benadryl with this penicillin V Allergy (Verified 03/19/16 11:11) Hives patient states she can take benadryl with this sulfamethoxazole [From Bactrim] Allergy (Verified 03/19/16 11:11) Hives patient states she can take benadryl with this trimethoprim [From Bactrim] Allergy (Verified 03/19/16 11:11) Hives patient states she can take benadryl with this Date of admission: 09/08/16 06:00 Primary care physician: Marko Hylton Jr, MD Consults: 09/08/16 13:22 Consult to Cardiology [CONS] Routine Comment: Consulting Provider: Cardiology Noelle Reason for Consult: Chest pain, Abnormal nuclear stress test Call Completed: Yes 09/09/16 11:33 Consult to Interventional Radiology [CONS] Routine Consulting Provider: Radiology Interventional Cols Reason for Consult: Please evaluate for placement of a Permacath on Saturday. Call Completed: No 09/10/16 10:00 Consult to Dialysis [CONS] ONCE 09/11/16 07:43 Consult to Gastroenterology [CONS] Routine Consulting Provider: Gastroenterology Noelle Reason for Consult: rule out GI bleed Call Completed: Yes 09/11/16 08:30 Consult to Dialysis [CONS] ONCE 09/11/16 09:53 Consult to Hoe Runner [CONS] Routine Reason for SW Consult: Needs dialysis chair time at [facility] 09/12/16 08:45 Consult to Dialysis [CONS] ONCE Discharging clinician: Maryann Banuelos Anticipated date of discharge: 09/13/16 - Patient Status Disposition: Home, Self-Care Condition: Good Functional capacity at discharge: independent ambulation Overall status at discharge: patient is back to baseline - Discharge Instructions Follow Up With: Kim Bales CNP [Partnered Physician] - 09/20/16 10:00 am Additional Instructions: Please follow up with your primary care physician within five days after your discharge from the hospital. Please follow up with cardiology and nephrology within one week after your discharge from the hospital. Please continue hemodialysis on saturday, saturday, saturday. Imdur and Lipitor has been added to your home medications. Please take these medications as prescribed. Please refer to your primary care physician in regards to pain management Please resume all your home medications as prescribed by your primary care physician. Please closely monitor your blood glucose and adjust insulin therapy accordingly. - Diet and Activity Activity: resume usual activities as tolerated Diet: diabetic diet, low salt diet Hospital course: Ms. Elkins is a 41 year old female with PMH Of type 1DM, CKD stage 4, HTN, anemia , pancreatic insufficiency, chronic pancytopenia who was admitted for management of left sided chest pain. Patient was noted to have abnormal stress test for which LHC was recommended, however given renal function, nephrology was consulted. Patient had transitioned to ESRD and was started on HD during this hospitalization. Patient was also noted to have anemia for which she underwent GI work up to rule out any GI bleed. EGD was negative for any acute bleed however colonoscopy showed a colon wall hematoma due to which LHC was postponed for a week. As per cardiology, medical optimization was recommended and she was started on imdur and statin. Patient has been tolerating HD well and her initial presenting complains of chest pain has resolved. construction ironworker helper was consulted for outpatient HD set up. Patient is currently hemodynamically stable and will be discharged to home with follow up with PCP, cardiology, and nephrology. She will continue HD on MWF. Patient demonstrates understanding of her diagnosis and agrees with the discharge care and plan. - Time Spent with Patient Total time spent providing and/or coordinating discharge services: Greater than 30 minutes - Constitutional Vitals: Temp Pulse Resp BP Pulse Ox 97.4 F L 65 16 146/80 98 09/13/16 06:56 09/13/16 06:56 09/13/16 06:56 09/13/16 06:56 09/13/16 06:56 General appearance: Present: A&O X 3, no acute distress, answers questions appropriately - Head Head exam: Present: atraumatic, normocephalic - Eye Eye exam: Present: normal appearance, conjuntiva pink, sclera anicteric - Respiratory Respiratory exam: Present: CTAB. Absent: accessory muscle use, rales, rhonchi, wheezes - Cardiovascular Cardiovascular exam: Present: RRR, +S1, +S2. Absent: diastolic murmur, gallop, rubs, systolic murmur Additional comments: right chest wall permacath in place, dressing intact, permacath site tender to palpation - GI/Abdominal GI/Abdominal exam: Present: normal bowel sounds, soft, no peritoneal signs. Absent: distended, tenderness - Extremities Exam Extremities exam: Present: warm, radial pulses palpable and symetrical. Absent : calf tenderness - Neurological Exam Neurological exam: Present: alert, oriented X3 - Psychiatric Psychiatric exam: Present: normal affect, normal mood - VTE Documentation of Mechanical Device: Intermittent pneumatic compression device
--- NOTE | 2016-09-13 11:15 | Nephrology Progress Note ---
Date of Encounter: 09/13/16 Time of Encounter: 11:13 - Assessment and Plan (1) Acute kidney injury superimposed on chronic kidney disease Current Visit: Yes Status: Acute Patient progressed to ESRD. She tolerated dialysis well. Will dialyze in [place], [place] as an outpatient MWF at 0700. She reports she is feeling better after fluid has been removed. (2) Hyperparathyroidism Current Visit: Yes Status: Acute on vitamin d and zemplar (3) Chest pain Current Visit: Yes Status: Resolved resolved. Per primary team. Qualifiers: Chest pain type: precordial pain Qualified Code(s): R07.2 - Precordial pain (4) Diabetes type I Current Visit: No Status: Chronic per primary team. Qualifiers: Diabetes mellitus complication status: with kidney complications Diabetes mellitus complication detail: with chronic kidney disease Chronic kidney disease stage: stage 3 (moderate) Qualified Code(s): E10.22 - Type 1 diabetes mellitus with diabetic chronic kidney disease; N18.3 - Chronic kidney disease, stage 3 (moderate) (5) HTN (hypertension) Current Visit: Yes Status: Chronic mild elevated blood pressure. Should improve with UF. Qualifiers: Hypertension type: essential hypertension Qualified Code(s): I10 - Essential (primary) hypertension Subjective Principal diagnosis: N/V, Advanced renal dysfunction Interval history: Patient seen and evaluated. She feels better and anticipates discharge today. Objective - Vital Signs Vital signs: Vital Signs Temp Pulse Resp BP Pulse Ox 09/13/16 08:15 64 09/13/16 06:56 97.4 F L 65 16 146/80 98 09/13/16 03:37 98.8 F 76 14 153/80 96 09/12/16 22:59 97.1 F L 82 15 135/72 96 09/12/16 20:10 98.1 F 73 14 137/71 97 09/12/16 19:20 98.4 F 16 160/80 09/12/16 19:10 143/68 09/12/16 18:55 140/67 09/12/16 18:40 128/65 09/12/16 18:25 127/59 09/12/16 18:10 129/62 09/12/16 17:55 128/65 09/12/16 17:40 133/64 09/12/16 17:25 124/62 09/12/16 17:10 126/61 09/12/16 16:55 123/59 09/12/16 16:40 124/62 09/12/16 16:25 67 134/63 09/12/16 16:10 97.7 F 18 131/69 09/12/16 15:41 98.2 F 69 16 132/74 97 09/12/16 14:00 98.0 F 81 16 135/72 97 Intake and Output 09/12/16 09/13/16 09/13/16 23:59 07:59 15:59 Intake Total 600 / 600 0 / 0 Output Total 2850 / 2850 0 / 0 Balance -2250 / -2250 0 / 0 Intake: Oral 0 / 0 0 / 0 Intake, Rinseback and 600 / 600 Flushes Output: Urine 250 / 250 0 / 0 Total Dialysis (HD) 2600 / 2600 Output Other: Weight 87.7 kg 88.5 kg Blood Glucose* 247 125 Hemodialysis Net Fluid 2000 Removed (mL) Patient Weight 09/13/16 23:59 Weight 88.5 kg - General Appearance General appearance: Present: well-developed, well-nourished EENT: Present: ATNC Neck: Present: supple Additional Comments: Respirations are unlabored Cardiology: Present: regular rate Dialysis Vascular Access: Venous Catheter (Right IJ tunneled catheter) Neurologic: Present: alert and oriented x3 Psychiatric: Present: mood/affect appropriate - Lab 09/13/16 03:20 09/13/16 03:20 Most recent lab results Calcium 7.8 mg/dL (8.6-10.8) L 09/13/16 03:20 Phosphorus 3.1 mg/dL (2.3-4.7) 09/13/16 03:20 Magnesium 1.6 mg/dL (1.6-2.6) 09/13/16 03:20 Urine Creatinine 35 mg/dL 09/09/16 01:45 - VTE Documentation of Mechanical Device: Intermittent pneumatic compression device Consult Discharge Plan - Plan Instructions: Hydrocodone/Acetaminophen (By mouth), Isosorbide Mononitrate (By mouth), Atorvastatin (By mouth), Diabetes Mellitus Type 2 in Adults (DC) Additional Instructions: Please follow up with your primary care physician within five days after your discharge from the hospital. Please follow up with cardiology and nephrology within one week after your discharge from the hospital. Please continue hemodialysis on saturday, saturday, saturday. Imdur and Lipitor has been added to your home medications. Please take these medications as prescribed. Please refer to your primary care physician in regards to pain management Please resume all your home medications as prescribed by your primary care physician. Please closely monitor your blood glucose and adjust insulin therapy accordingly. Referrals: Marko Hylton Jr, MD [Primary Care Provider] - 09/20/16 10:00 am Richard Sewell MD [Partnered Physician] - (sent web request on 09-12-16 @ 1004) Norris Rodas DO [Partnered Physician] - 09/21/16 2:40 pm Prescriptions: Atorvastatin [Lipitor] 40 mg PO HS #30 tablet HYDROcodone/Acet 7.5/325 mg [Whiting 7.5-325 mg] 1 tab PO Q6H PRN #20 tablet PRN Reason: Severe Pain Isosorbide MONOnitrate (24 HR) [Imdur] 30 mg PO DAILY #30 tab.er.24h
== END 2016-09-13 11:59 | disposition home or self-care (01) | DRG 637 ==
LOC: 2ANU 15:36 → EMEROO 15:36 → 2ANU 20:30 → 2NNU 09-07 10:04 → SUATTDRO 09-08 06:00
PROVIDERS: ADMIT Nurse Practitioner Acute Care; ATTEND Internal Medicine
PROC: IRPERMA (2016-09-10 09:00)

== ENCOUNTER 2016-10-01 11:07 | Observation (INO) ==
[2016-10-01] MEDS ORDERED: Acetaminophen 325 MG TABLET PO PRN (14:16)
[2016-10-01] MEDS ORDERED: Naloxone 0.4 MG/ML INJ IVP PRN (14:16)
[2016-10-01] MEDS ORDERED: Ondansetron 4 MG/2 ML VIAL IVP PRN (14:16)
[2016-10-01 14:35] LABS: Potassium 4.3 mEq/L (3.5-4.5)
[2016-10-01] MEDS ORDERED: SUMAtriptan succinate 50 MG TABLET PO PRN (15:44)
[2016-10-01] MEDS ORDERED: Cyanocobalamin (B-12) 1,000 MCG/ML VIAL IM SCH (15:45)
[2016-10-01] MEDS ORDERED: CloNIDine Patch 0.3 MG PATCH (WEEKLY) TD SCH (15:45)
--- NOTE | 2016-10-01 15:47 | Internal Med History&Physical ---
Date of Encounter: 10/01/16 Time of Encounter: 15:30 Assessment and Plan (1) Syncope Current visit: Yes Status: Acute Syncopal episodes warning - unclear etiology, probable orthostatic hypotension EKG - normal sinus rhythm and no acute ST-T changes Troponin - 0.04, trend troponin Recent left heart - no coronary artery disease, normal LV function CT C-spine - no acute process CT brain - pending Cardiac telemetry, strict I's and O's, daily weight Labs in a.m. Qualifiers: Syncope type: unspecified Qualified Code(s): R55 - Syncope and collapse (2) Diabetes type I Current visit: No Status: Chronic Diabetes mellitus type 1, insulin-dependent, hyperglycemia - initially suspected to have DKA Anion gap is normal at present Continue glucose checks, continue insulin pump Labs in a.m. Qualifiers: Diabetes mellitus complication status: with kidney complications Diabetes mellitus complication detail: with chronic kidney disease Chronic kidney disease stage: stage 3 (moderate) Qualified Code(s): E10.22 - Type 1 diabetes mellitus with diabetic chronic kidney disease; N18.3 - Chronic kidney disease, stage 3 (moderate) (3) ESRD (end stage renal disease) on dialysis Current visit: No Status: Chronic End-stage renal disease, recently started on the hemodialysis - Saturday Patient did not complete her dialysis today Continue home meds Strict I's and O's, fluid restriction, daily weight Continue regular hemodialysis Nephrology consult (4) HTN (hypertension) Current visit: No Status: Chronic Hypertension secondary to chronic kidney disease, controlled, continue home meds , monitor Qualifiers: Hypertension type: essential hypertension Qualified Code(s): I10 - Essential (primary) hypertension (5) Iron deficiency anemia Current visit: No Status: Chronic Chronic anemia secondary to end-stage renal disease and iron deficiency - H&H stable and at baseline status post EGD/colonoscopy recently - no acute bleed but there was a hematoma: Wall and no other acute findings Patient is on Aranesp Qualifiers: Iron deficiency anemia type: other iron deficiency Qualified Code(s): D50.8 - Other iron deficiency anemias (6) Hypothyroidism Current visit: No Status: Chronic Continue levothyroxine Qualifiers: Hypothyroidism type: unspecified Qualified Code(s): E03.9 - Hypothyroidism , unspecified (7) DVT prophylaxis Current visit: No Status: Acute Continue heparin subcutaneous Internal Medicine - H&P: HPI Chief complaint: Syncope Admitted From: Hospital to Hospital Transfer Plans for Post Hospital Care: Home History of present illness: Ms. Elkins is a 41 year old female with past medical history of end-stage renal disease on hemodialysis, type 1 diabetes, hypertension, hypothyroidism, chronic anemia, GERD and anxiety and depression. She presents as a transfer from [place] [facility]. She initially presented to [place] after an episode of syncope. On examination patient is awake and alert. Not in distress. Able to provide all history. Family is at bedside. Patient states she went to dialysis this morning and felt some generalized weakness. She then went to the bathroom and seems to have passed out for almost 5 minutes. Patient complains of neck pain after she hurt her neck. Patient regained consciousness at the dialysis unit. She was given 1 amp of D50. She then presented to [place] ED. her blood glucose was found to be 700 and she also had elevated anion gap. It was initially thought that the patient has DKA. Blood glucose is now better controlled and her anion gap is normal. She complains of mild shortness of breath. She has not been dialyzed today. Patient states she was recently treated for UTI. Patient denies any chest pain or palpitations or abdominal pain or vomiting or nausea or diarrhea. No fever or any other problems. She had a recent heart catheter done about 5 days ago and is completely normal. She has normal LV function. All other labs done at [place] seemed to be fairly within normal limits and seems to be at baseline. CT scan of the C-spine is negative and chest x- ray does not show any acute cardiopulmonary process. Patient states she feels better now and seems to be back to baseline. Patient is being admitted for syncope and hypoglycemia. We will continue all home medications and glucose checks. Patient and family explained about condition and plan of care. Nephrology consult, discussed with Dr. Cui, and patient will be dialyzed in the morning. Patient did family understood and agreed. No unanswered questions. CODE STATUS full code. Past Med Surg Social Fam HX - Past Medical History Medical history: arthritis, CHF, diabetes, dialysis, fibromyalgia, GERD, hypertension, kidney stones, renal disease, thyroid disease, other Psychiatric history: anxiety, depression - Past Surgical History Surgical History: appendectomy, cholecystectomy, hysterectomy, other - Social History Smoking Status: Never smoker Smokeless Tobacco Status: No Alcohol use: none Drug use: none - Family History Mother Hx Family Neurologic Disorders: Yes (fibromyglia) Father Hx Family Cardiac Disorders: Yes (stents, GA, cath, HTN, DVT) Hx Family Endocrine Disorder: Yes (diabetes) Hx Family Neurologic Disorders: Yes (stroke) Internal Medicine - H&P: Meds RX: Rifaximin [Xifaxan] 550 mg PO DAILY 12/21/15 [History] RX: Ergocalciferol (VITAMIN D2) [Drisdol (50,000 Unit)] 50,000 unit PO QWEEK # 12 capsule 12/24/15 [Rx] RX: Levothyroxine [Synthroid] 100 mcg PO 0630 tablet 12/24/15 [Rx] RX: amLODIPine [Norvasc] 10 mg PO DAILY #30 tablet 12/24/15 [Rx] RX: ALPRAZolam [Xanax 0.5 MG Tablet] 0.5 mg PO TID 05/22/16 [History] RX: Cyanocobalamin (B-12) [Vitamin B12] 1,000 mcg IM QMONTH 05/22/16 [History] RX: SUMAtriptan Succinate [Imitrex] 100 mg PO DAILY PRN 05/22/16 [History] RX: Calcium Acetate [Phos-LO] 667 mg PO TIDWM 09/06/16 [History] RX: CloNIDine Patch [Catapres-Tts] 0.6 mg TD QWEEK 09/06/16 [History] RX: Diltiazem CD (24hr) [Cardizem CD] 120 mg PO DAILY 09/06/16 [History] RX: Subcutaneous Insulin Pump [T:Slim] 1 each MC ACHS 09/06/16 [History] RX: Doxercalciferol [Hectorol] 5 mcg PO 3XW 09/26/16 [History] RX: Epoetin Rickey [Epogen] 4,000 unit IV 3XW 09/26/16 [History] RX: Furosemide [Lasix] 80 mg PO BID 09/26/16 [History] RX: Lisinopril [Zestril] 40 mg PO DAILY 09/26/16 [History] Aspirin [Lo-Dose Aspirin EC] 81 mg PO 10/01/16 [History] Promethazine [Phenergan] 25 mg PO Q6HR PRN 10/01/16 [History] RX: hydrALAZINE [HydrALAZINE] 50 mg PO TID 10/01/16 [History] Allergies cephalexin [From Keflex] Allergy (Verified 10/01/16 07:48) Hives patient states she can take benadryl with this ciprofloxacin [From Cipro] Allergy (Verified 10/01/16 07:48) Hives patient states she can take benadryl with this levofloxacin [From Levaquin] Allergy (Verified 10/01/16 07:48) Difficulty Breathing ofloxacin Allergy (Verified 10/01/16 07:48) Rash patient states she can take benadryl with this penicillin V Allergy (Verified 10/01/16 07:48) Hives patient states she can take benadryl with this sulfamethoxazole [From Bactrim] Allergy (Verified 10/01/16 07:48) Hives patient states she can take benadryl with this trimethoprim [From Bactrim] Allergy (Verified 10/01/16 07:48) Hives patient states she can take benadryl with this All Systems PM: A 10-system review of systems was performed and is negative for pertinent findings except as documented above in the HPI. - Constitutional Constitutional: as per HPI, fatigue, weakness, no fever(s) - EENT Eyes: no blurry vision - Cardiovascular Cardiovascular ROS IM: dyspnea, dyspnea on exertion, lightheadedness, syncope, no chest pain, no diaphoresis, no orthopnea - Respiratory Respiratory: dyspnea, dyspnea on exertion, no cough, no wheezing, no chest congestion - Gastrointestinal Gastrointestinal: no abdominal pain, no bloating, no cramping, no diarrhea, no nausea, no vomiting - Genitourinary Genitourinary: dysuria - Neurological Neurological ROS: no abnormal gait, no abnormal speech, no dizziness, no focal weakness, no numbness, no tingling, no weakness - Constitutional Vitals: Temp Pulse Resp BP Pulse Ox 98.1 F 72 16 136/77 99 10/01/16 13:52 10/01/16 13:52 10/01/16 13:52 10/01/16 13:52 10/01/16 13:52 General appearance: Present: A&O X 3, pleasant, no acute distress, answers questions appropriately - Head Head exam: Present: atraumatic - Eye Eye exam: Present: EOMI - Neck Neck exam general surgery: Present: supple - Respiratory Respiratory exam: Present: CTAB. Absent: rales, rhonchi, wheezes, tachypnea - Cardiovascular Cardiovascular exam: Present: RRR, +S1, +S2 - GI/Abdominal GI/Abdominal exam: Present: soft, no peritoneal signs. Absent: distended, firm , guarding, tenderness - Extremities Exam Extremities exam: Present: radial pulses palpable and symetrical. Absent: cyanotic, pedal edema, tenderness - Neurological Exam Neurological exam: Present: alert, oriented X3, no focal deficits. Absent: facial droop, speech deficit Internal Med - H&P Results - Labs CBC & Chem 7: 10/01/16 14:10 Labs: BMP 10/01/16 14:10 Sodium 133 L Potassium 4.3 Chloride 103 Carbon Dioxide 22 BUN 53 H Creatinine 3.11 H Glucose 267 H Calcium 8.0 L
[2016-10-01] MEDS: *HR* Morphine 2 MG/ML SYRINGE IVP PRN ×2 (15:49→21:50)
[2016-10-01 15:58] LABS: Bilirubin,Urine Negative (Negative); Blood,Urine Negative (Negative); Clarity,Urine Clear (Clear); Color,Urine Yellow (Yellow); Glucose,Urine (UA) 500 mg/dL (Normal); Ketones,Urine Negative (Negative); Leukocyte Esterase,Urine Negative (Negative); Nitrite,Urine Negative (Negative); PH,Urine 6.5 pH Units (5.0-8.0); Protein,Urine 30 mg/dL (Neg-Trace); Specific Gravity,Urine 1.012 (1.010-1.025); Urobilinogen,Urine Normal (Normal)
[2016-10-01 16:03] LABS: Bacteria,Urine None Seen per hpf (None-Few); Hyaline Casts,Urine None Seen per lpf (None-Few); Squamous Epithelial Cell,Urine Moderate per lpf (None-Few); WBC,Urine 0-3 per hpf (0-3)
[2016-10-01] MEDS: Calcium Acetate 667 MG CAPSULE PO SCH (17:48)
[2016-10-01] MEDS: (Subcutaneous Insulin Pump [T:Slim] 1 EACH) MC SCH ×2 (17:48→21:00)
[2016-10-01] MEDS: *HR* Heparin 5,000 UNIT/ML VIAL SQ SCH (17:48)
[2016-10-01] MEDS: Famotidine 20 MG/2 ML VIAL IVP SCH (17:48)
[2016-10-01] MEDS: hydrALAZINE 25 MG TABLET PO SCH (20:24)
[2016-10-01] MEDS: ALPRAZolam 0.5 MG TABLET PO SCH (20:24)
[2016-10-01] MEDS: Furosemide 20 MG TABLET PO SCH (20:24)
[2016-10-02] MEDS: *HR* Morphine 2 MG/ML SYRINGE IVP PRN ×5 (03:14→22:36)
[2016-10-02] MEDS: Famotidine 20 MG/2 ML VIAL IVP SCH (04:59)
[2016-10-02] MEDS: *HR* Heparin 5,000 UNIT/ML VIAL SQ SCH ×2 (04:59→17:10)
[2016-10-02 05:52] LABS: Albumin/Globulin Ratio 1.1 (1.1-2.2); Calcium 8.2 mg/dL (8.6-10.8); Globulin 2.7 g/dL (2.4-3.5); Potassium 4.7 mEq/L (3.5-4.5); Total Protein 5.7 g/dL (6.0-8.3)
[2016-10-02 05:56] LABS: Basophils % 0.7 %; Eosinophils # 0.1 K/mcL (0.0-0.6); Eosinophils % 2.4 %; Hematocrit 24.2 % (35.3-44.9); Hemoglobin 8.5 g/dL (11.5-15.4); Lymphocytes # 1.4 K/mcL (0.6-4.6); Lymphocytes % 32.7 %; Mean Corpuscular HGB Conc 35.1 g/dL (31.6-35.5); Mean Corpuscular Hemoglobin 32.4 pg (28.0-33.3); Mean Corpuscular Volume 92.4 fL (83.0-100.0); Mean Platelet Volume 11.6 fL (9.4-12.4); Monocytes # 0.3 K/mcL (0.0-1.3); Monocytes % 7.3 %; Neutrophils # 2.4 K/mcL (1.6-8.9); Platelet Count 138 K/mcL (140-400); Red Blood Count 2.62 M/mcL (3.82-4.97); Red Cell Distribution Width 13.5 % (11.5-14.5); Segmented Neutrophils % 56.9 %
[2016-10-02] MEDS: hydrALAZINE 25 MG TABLET PO SCH ×3 (07:56→20:38)
[2016-10-02] MEDS: Furosemide 20 MG TABLET PO SCH (07:56)
[2016-10-02] MEDS: Calcium Acetate 667 MG CAPSULE PO SCH ×3 (07:57→17:00)
[2016-10-02] MEDS: (Subcutaneous Insulin Pump [T:Slim] 1 EACH) MC SCH (07:59)
[2016-10-02] MEDS: ALPRAZolam 0.5 MG TABLET PO SCH ×3 (07:59→20:38)
[2016-10-02 08:01] LABS: Magnesium 1.7 mg/dL (1.6-2.6)
[2016-10-02] MEDS ORDERED: Lisinopril 20 MG TABLET PO SCH (09:00)
[2016-10-02] MEDS ORDERED: Diltiazem CD (24hr) 120 MG CAPSULE PO SCH (09:00)
[2016-10-02] MEDS ORDERED: amLODIPine 5 MG TABLET PO SCH (09:00)
[2016-10-02] MEDS ORDERED: *HR* Heparin 10,000 UNIT/10 ML VIAL IV PRN (10:15)
[2016-10-02] MEDS ORDERED: 0.9 % Sodium Chloride 250 ML IVC PRN ×2 (10:15→13:00)
[2016-10-02] MEDS ORDERED: 0.9 % Sodium Chloride 1,000 ML PRIME SCH ×2 (10:15→13:00)
[2016-10-02] MEDS ORDERED: 0.9 % Sodium Chloride 2,000 ML ONE (10:29)
--- NOTE | 2016-10-02 11:56 | Nephrology Consult Note ---
<Kerri Colon Ted - Last Filed: 10/02/16 12:06> Date of Encounter: 10/02/16 Time of Encounter: 11:51 Assessment and Plan (1) ESRD (end stage renal disease) on dialysis Status: Chronic HD today Plan for short treatment of HD again tomorrow to get patient back on her M,W,F schedule Renal diet Strict I/Os Avoid nephrotoxins if possible. (2) Syncope Status: Acute per primary team Qualifiers: Syncope type: unspecified Qualified Code(s): R55 - Syncope and collapse (3) Type I diabetes mellitus Status: Chronic per primary team Qualifiers: Diabetes mellitus complication status: with kidney complications Diabetes mellitus complication detail: with nephropathy Qualified Code(s): E10.21 - Type 1 diabetes mellitus with diabetic nephropathy History of Present Illness - Reason for Consult Consult date: 10/02/16 - Chief Complaint syncope, ESRD on HD - History of Present Illness shravan Elkins is a 41 year old female well known to our practice with past medical history of end-stage renal disease on hemodialysis at [facility] on a M,W,F schedule, type 1 diabetes, hypertension, hypothyroidism, chronic anemia, GERD and anxiety and depression. Patient states she had a "rough" weekend, just didn' t feel well. She had family drive her to dialysis yesterday but was only there a few minutes when she felt worse; she went to bathroom and reports 'passed out' . Patient was transfered to [place] ED and then transferred here to [place]. Patient states she was recently treated for UTI. She had a recent heart catheter done about 5 days ago and was completely normal with normal LV function per intake H&P. Nephrology has been consulted to manage her dialysis while hospitalized. Patient was seen and examined while on dialysis today. Past Med Surg Social Fam HX - Past Medical History Medical history: arthritis, CHF, diabetes, dialysis, fibromyalgia, GERD, hypertension, kidney stones, renal disease, thyroid disease, other Psychiatric history: anxiety, depression - Past Surgical History Surgical History: appendectomy, cholecystectomy, hysterectomy, other - Social History Smoking Status: Never smoker Smokeless Tobacco Status: No Alcohol use: none Drug use: none - Family History Mother Hx Family Neurologic Disorders: Yes (fibromyglia) Father Hx Family Cardiac Disorders: Yes (stents, CA, cath, HTN, DVT) Hx Family Endocrine Disorder: Yes (diabetes) Hx Family Neurologic Disorders: Yes (stroke) Medications and Allergies Rifaximin [Xifaxan] 550 mg PO DAILY 12/21/15 [History] Ergocalciferol (VITAMIN D2) [Drisdol (50,000 Unit)] 50,000 unit PO QWEEK #12 capsule 12/24/15 [Rx] Levothyroxine [Synthroid] 100 mcg PO 0630 tablet 12/24/15 [Rx] Cyanocobalamin (B-12) [Vitamin B12] 1,000 mcg IM QMONTH 05/22/16 [History] SUMAtriptan Succinate [Imitrex] 100 mg PO DAILY PRN 05/22/16 [History] Calcium Acetate [Phos-LO] 667 mg PO TIDWM 09/06/16 [History] CloNIDine Patch [Catapres-Tts] 0.6 mg TD QWEEK 09/06/16 [History] Diltiazem CD (24hr) [Cardizem CD] 120 mg PO DAILY 09/06/16 [History] Subcutaneous Insulin Pump [T:Slim] 1 each ACHS 09/06/16 [History] Doxercalciferol [Hectorol] 5 mcg PO 3XW 09/26/16 [History] Epoetin Rickey [Epogen] 4,000 unit IV 3XW 09/26/16 [History] Furosemide [Lasix] 80 mg PO BID 09/26/16 [History] Aspirin [Lo-Dose Aspirin EC] 81 mg PO DAILY 10/01/16 [History] Promethazine [Phenergan] 25 mg PO Q6HR PRN 10/01/16 [History] hydrALAZINE [HydrALAZINE] 50 mg PO TID 10/01/16 [History] ALPRAZolam [Xanax 0.5 MG Tablet] 0.5 mg PO HS PRN tab 10/05/16 [Rx] Blood Sugar Diagnostic [Glucose Test Strip] 1 each [facility] #120 strip 10/05/16 [ Rx] Carvedilol [Coreg] 3.125 mg PO BIDWM #30 tab 10/05/16 [Rx] Isosorbide MONOnitrate (24 HR) [Imdur] 30 mg PO DAILY #30 10/05/16 [Rx] Lisinopril [Zestril] 20 mg PO DAILY #0 07/14/17 [Rx] Allergies cephalexin [From Keflex] Allergy (Verified 10/01/16 07:48) Hives patient states she can take benadryl with this ciprofloxacin [From Cipro] Allergy (Verified 10/01/16 07:48) Hives patient states she can take benadryl with this levofloxacin [From Levaquin] Allergy (Verified 10/01/16 07:48) Difficulty Breathing ofloxacin Allergy (Verified 10/01/16 07:48) Rash patient states she can take benadryl with this penicillin V Allergy (Verified 10/01/16 07:48) Hives patient states she can take benadryl with this sulfamethoxazole [From Bactrim] Allergy (Verified 10/01/16 07:48) Hives patient states she can take benadryl with this trimethoprim [From Bactrim] Allergy (Verified 10/01/16 07:48) Hives patient states she can take benadryl with this Review of Systems All Systems: reviewed and no additional remarkable complaints except as stated Constitutional: malaise, no anorexia, no chills Cardiovascular: rapid heart rate (c/o fast "hard" heartbeat for about an hour yesterday), syncope, no chest pain, no dyspnea, no edema Respiratory: no cough, no dyspnea, no wheezing Gastrointestinal: no constipation, no nausea, no vomiting Neurological: no behavioral changes, no confusion Exam - Vital Signs Vital signs: Initial Vital Signs Temp Pulse Resp BP Pulse Ox 98.1 F 72 16 136/77 99 10/01/16 13:52 10/01/16 13:52 10/01/16 13:52 10/01/16 13:52 10/01/16 13:52 Vital Signs - Last 8 Hours Temp Pulse Resp BP Pulse Ox 10/02/16 11:35 152/73 10/02/16 11:20 153/73 10/02/16 11:05 159/86 10/02/16 10:50 98.5 F 14 147/74 10/02/16 10:29 98.3 F 83 16 127/74 98 10/02/16 08:33 98 10/02/16 08:05 88 10/02/16 07:26 98.4 F 96 16 138/53 96 10/02/16 03:52 97.9 F 87 14 138/53 98 Intake and Output 10/01/16 10/02/16 10/02/16 23:59 07:59 15:59 Intake Total 720 / 720 0 / 0 600 / 600 Output Total 400 / 400 1700 / 1700 500 / 500 Balance 320 / 320 -1700 / -1700 100 / 100 Intake: Oral 720 / 720 0 / 0 0 / 0 Intake, Rinseback and 600 / 600 Flushes Output: Urine 400 / 400 1700 / 1700 500 / 500 Other: Meal Dinner Percent of Meal Consumed 100% Stool Size Moderate Stool Consistency formed Stool Color Brown # Bowel Movements 1 0 Weight 84.459 kg Blood Glucose* 142 314 Hemodialysis Net Fluid 899 Removed (mL) Patient Weight 10/02/16 23:59 Weight 84.459 kg - General Appearance General appearance: well-developed, well-nourished EENT: ATNC, mucous membranes moist, hearing intact, vision intact Neck: supple Respiratory: clear Cardiology: no edema, normal S1, normal S2 Gastrointestinal: no tenderness, no guarding Neurologic: alert and oriented x3 Psychiatric: mood/affect appropriate, cooperative Results - Lab Results 10/02/16 05:05 10/02/16 05:05 Most recent lab results Calcium 8.2 mg/dL (8.6-10.8) L 10/02/16 05:05 Magnesium 1.7 mg/dL (1.6-2.6) 10/01/16 14:10 Consult Discharge Plan - Plan Instructions: Syncope (DC), Diabetes Mellitus Type 2 in Adults (DC) Referrals: Angélica Hollis CNP [Partnered Physician] - 10/17/16 8:30 am Desiree Mccormack CNP [Advanced Practice Nurse] - 10/11/16 3:00 pm (please follow up as schedule...) Fidel Pride DO [Partnered Physician] - 10/09/16 2:30 pm (Please follow up timur schedule...) Prescriptions: Blood Sugar Diagnostic [Glucose Test Strip] 1 each [facility] #120 strip Carvedilol [Coreg] 3.125 mg PO BIDWM #30 tab Isosorbide MONOnitrate (24 HR) [Imdur] 30 mg PO DAILY #30 <George Waldrop - Last Filed: 10/15/16 17:41> Date of Encounter: 10/02/16 Exam - Vital Signs Vital signs: Initial Vital Signs Temp Pulse Resp BP Pulse Ox 98.1 F 72 16 136/77 99 10/01/16 13:52 10/01/16 13:52 10/01/16 13:52 10/01/16 13:52 10/01/16 13:52 Results - Lab Results 10/05/16 08:20 10/05/16 08:20 Most recent lab results Calcium 8.3 mg/dL (8.6-10.8) L 10/05/16 08:20 Phosphorus 4.9 mg/dL (2.3-4.7) H 10/04/16 04:05 Magnesium 1.6 mg/dL (1.6-2.6) 10/04/16 04:05 - Attending Attestation I examined this patient and my medical decision-making was reviewed with the Resident Physician. I agree with the documented findings, disposition and treatment plan as described except to the extent set forth below. Pt seen and examined. In brief, 41 y o female with PMH of ESRD newly started on HD by my associate , Dr Rodas admitted after a syncopal episode on arrival for her routine HD yesterday which was aborted and she presented to [facility]. Exam unremarkable. Since she missed her treatment session yesterday, will plan to dialyze today for 3 hrs with UF as tolerated. We will also dialyze again briefly the next day to catch up on her schedule.
[2016-10-02] MEDS ORDERED: Naloxone 0.4 MG/ML INJ IVP PRN (13:00)
[2016-10-02] MEDS ORDERED: Acetaminophen 325 MG TABLET PO PRN (13:00)
[2016-10-02] MEDS ORDERED: Cyanocobalamin (B-12) 1,000 MCG/ML VIAL IM SCH (13:00)
[2016-10-02] MEDS ORDERED: SUMAtriptan succinate 50 MG TABLET PO PRN (13:00)
[2016-10-02] MEDS: Famotidine 20 MG TABLET PO SCH (16:59)
[2016-10-02] MEDS: Ondansetron 4 MG/2 ML VIAL IVP PRN (17:04)
--- NOTE | 2016-10-02 17:13 | Internal Med Progress Note ---
Date of Encounter: 10/02/16 Time of Encounter: 17:11 - Assessment and plan (1) Syncope Current Visit: No Status: Acute Assessment and plan: On admission 10/01, patient went to dialysis in the morning and felt some generalized weakness. She then went to the bathroom and lost consciousness for almost 5 minutes. She did fall and hit her head and neck against the toilet. She regained consciousness at the dialysis unit and was given 1 amp of D50. She then presented to [place] ED. her blood glucose was found to be 700 and she also had elevated anion gap. On arrival to our medical floor, her blood glucose was 367 and anion gap was normal. EKG - normal sinus rhythm and no acute ST-T changes flat Troponinemia likely from renal failure 09/26/16- recent left heart cath - no coronary artery disease, normal LV function CT C-spine - no acute process CT brain - negative for any acute process. remote infarct. no telemetry events during this hospitalization. no syncopal episodes either. likely cause of syncope is orthostatic hypotension. stop amlodipine and lisinopril given low normal bp. close monitor of bp after next session of dialysis tomorrow. close monitor of hgb. Qualifiers: Syncope type: unspecified Qualified Code(s): R55 - Syncope and collapse (2) Anemia Current Visit: No Status: Chronic Assessment and plan: hgb at 8.5. chronic anemia secondary to folate deficiency. no bleeding. close monitor. Qualifiers: Anemia type: other cause Other causes of anemia: chronic disease, other Qualified Code(s): D63.8 - Anemia in other chronic diseases classified elsewhere (3) ESRD (end stage renal disease) on dialysis Current Visit: No Status: Chronic Assessment and plan: appreciate nephrology input. (4) Type I diabetes mellitus Current Visit: No Status: Chronic Assessment and plan: insulin pump in place and working well. Qualifiers: Diabetes mellitus complication status: with kidney complications Diabetes mellitus complication detail: with nephropathy Qualified Code(s): E10.21 - Type 1 diabetes mellitus with diabetic nephropathy (5) HTN (hypertension) Current Visit: No Status: Chronic Assessment and plan: low normal bp. hold amlodipine and lisinopril. Qualifiers: Hypertension type: essential hypertension Qualified Code(s): I10 - Essential (primary) hypertension - Subjective Interval history: patient feels weak and lightheadedness. no nausea. no chest pain. no vomiting. - Constitutional Vitals: Temp Pulse Resp BP Pulse Ox 98.5 F 95 20 139/82 98 10/02/16 16:11 10/02/16 16:11 10/02/16 16:11 10/02/16 16:11 10/02/16 16:11 General appearance: Present: cooperative, A&O X 3, pleasant, no acute distress, answers questions appropriately - Neck Neck exam general surgery: Present: supple, trachea midline. Absent: lymphadenopathy - Respiratory Respiratory exam: Present: CTAB - Cardiovascular Cardiovascular exam: Present: RRR - GI/Abdominal GI/Abdominal exam: Present: normal bowel sounds, soft. Absent: distended, tenderness - Extremities Exam Extremities exam: Absent: pedal edema - Back Exam Back exam: Absent: CVA tenderness (L), CVA tenderness (R) - Neurological Exam Neurological exam: Present: alert, oriented X3, no focal deficits, strengths equal and symetr throughout. Absent: facial droop, speech deficit Internal Medicine: Result - Labs CBC & Chem 7: 10/02/16 05:05 10/02/16 05:05 Labs: Short CBC 10/02/16 Range/Units 05:05 WBC 4.3 (4.3-11.1) K/mcL Hgb 8.5 L (11.5-15.4) g/dL Hct 24.2 L (35.3-44.9) % Plt Count 138 L (140-400) K/mcL Neutrophils # 2.4 (1.6-8.9) K/mcL BMP 10/01/16 10/02/16 14:10 05:05 Sodium 133 L 134 L Potassium 4.3 4.7 H Chloride 103 103 Carbon Dioxide 22 18 L BUN 53 H 61 H Creatinine 3.11 H 3.24 H Glucose 267 H 281 H Calcium 8.0 L 8.2 L Cardiac Enzymes 10/01/16 10/02/16 10/02/16 Range/Units 17:55 00:00 05:05 Troponin I 0.04 H* 0.05 H* 0.05 H* (0-0.03) ng/mL Liver Function 10/02/16 Range/Units 05:05 Total Bilirubin 1.0 (0.2-1.2) mg/dL AST 132 H (5-34) Units/L ALT 244 H (0-55) Units/L Alkaline Phosphatase 117 (38-126) Units/L Albumin 3.0 L (3.5-5.0) g/dL - Impressions Impressions Head CT 10/01/16 16:36 IMPRESSION: 1. No acute intracranial process identified. 2. 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 D/ / 10/02/2016 11:18:06 Cristiano Rodarte MD / earnold Interpreting Provider: Cristiano Rodarte MD Consult Discharge Plan - Plan Referrals: Marko Hylton Jr, MD [Primary Care Provider] - (SENT WEB REQUEST ON 10-02-16 @ 0979)
[2016-10-02] MEDS ORDERED: Famotidine 20 MG/2 ML VIAL IVP SCH (18:00)
[2016-10-02] MEDS: Furosemide 40 MG TABLET PO SCH (20:38)
[2016-10-03] MEDS: *HR* Morphine 2 MG/ML SYRINGE IVP PRN ×3 (04:30→12:28)
[2016-10-03] MEDS: Ondansetron 4 MG/2 ML VIAL IVP PRN ×3 (04:34→23:17)
[2016-10-03] MEDS: *HR* Heparin 5,000 UNIT/ML VIAL SQ SCH (04:50)
[2016-10-03 05:15] LABS: Basophils % 0.7 %; Eosinophils # 0.1 K/mcL (0.0-0.6); Hematocrit 24.2 % (35.3-44.9); Hemoglobin 8.5 g/dL (11.5-15.4); Immature Granulocytes % 0.3 % (0-4); Lymphocytes # 1.1 K/mcL (0.6-4.6); Lymphocytes % 36.7 %; Mean Corpuscular HGB Conc 35.1 g/dL (31.6-35.5); Mean Corpuscular Hemoglobin 32.3 pg (28.0-33.3); Mean Platelet Volume 10.4 fL (9.4-12.4); Monocytes # 0.3 K/mcL (0.0-1.3); Monocytes % 9.9 %; Neutrophils # 1.5 K/mcL (1.6-8.9); Platelet Count 116 K/mcL (140-400); Red Blood Count 2.63 M/mcL (3.82-4.97); Red Cell Distribution Width 13.3 % (11.5-14.5); Segmented Neutrophils % 50.4 %
[2016-10-03 05:36] LABS: Magnesium 1.6 mg/dL (1.6-2.6); Phosphorous 4.8 mg/dL (2.3-4.7); Potassium 4.3 mEq/L (3.5-4.5)
[2016-10-03] MEDS: Famotidine 20 MG TABLET PO SCH ×2 (08:22→16:44)
[2016-10-03] MEDS: Calcium Acetate 667 MG CAPSULE PO SCH ×3 (08:22→16:43)
[2016-10-03] MEDS: ALPRAZolam 0.5 MG TABLET PO SCH ×2 (08:22→14:34)
[2016-10-03] MEDS ORDERED: 0.9 % Sodium Chloride 250 ML IVC PRN (08:59)
[2016-10-03] MEDS ORDERED: DOXERCALCIFEROL PO SCH (09:00)
[2016-10-03] MEDS ORDERED: 0.9 % Sodium Chloride 1,000 ML PRIME SCH (09:00)
[2016-10-03] MEDS ORDERED: 0.9 % Sodium Chloride 2,000 ML ONE (10:47)
[2016-10-03] MEDS: hydrALAZINE 25 MG TABLET PO SCH ×3 (11:59→22:05)
[2016-10-03] MEDS: Diltiazem CD (24hr) 120 MG CAPSULE PO SCH (12:26)
[2016-10-03] MEDS: Furosemide 40 MG TABLET PO SCH ×2 (12:27→16:43)
[2016-10-03] MEDS ORDERED: CloNIDine Patch 0.3 MG PATCH (WEEKLY) TD SCH (13:45)
--- NOTE | 2016-10-03 18:03 | Nephrology Progress Note ---
Date of Encounter: 10/03/16 Time of Encounter: 12:00 Subjective Interval history: Pt seen and examined on HD feeling much better Objective - Vital Signs Vital signs: Vital Signs Temp Pulse Resp BP Pulse Ox 10/03/16 16:55 98.8 F 98 17 175/92 97 10/03/16 14:30 110 20 146/78 98 10/03/16 14:03 130 10/03/16 12:05 98.6 F 16 171/85 10/03/16 11:50 174/83 10/03/16 11:35 175/86 10/03/16 11:20 175/84 10/03/16 11:05 157/83 10/03/16 10:50 149/76 10/03/16 10:35 137/70 10/03/16 10:20 161/77 10/03/16 10:05 153/79 10/03/16 09:50 98 F 18 179/83 10/03/16 08:29 96 10/03/16 07:37 98.4 F 91 16 163/90 96 10/03/16 04:29 97.7 F 84 15 149/85 96 10/03/16 00:41 97.9 F 87 14 155/77 95 10/02/16 19:53 98.4 F 94 14 154/74 94 Intake and Output 10/03/16 10/03/16 10/03/16 07:59 15:59 23:59 Intake Total 1400 / 1400 360 / 360 Output Total 1600 / 1600 Balance -200 / -200 360 / 360 Intake: Oral 800 / 800 360 / 360 Intake, Rinseback and 600 / 600 Flushes Output: Urine 0 / 0 Total Dialysis (HD) 1600 / 1600 Output Other: Meal Breakfast Dinner Percent of Meal Consumed 30% 90% # Voids 1 Weight 84.7 kg Blood Glucose* 330 207 256 Hemodialysis Net Fluid 1000 Removed (mL) Patient Weight 10/03/16 23:59 Weight 84.7 kg - Lab 10/03/16 05:00 10/03/16 05:00 Most recent lab results Calcium 8.0 mg/dL (8.6-10.8) L 10/03/16 05:00 Phosphorus 4.8 mg/dL (2.3-4.7) H 10/03/16 05:00 Magnesium 1.6 mg/dL (1.6-2.6) 10/03/16 05:00 Consult Discharge Plan - Plan Referrals: Angélica Hollis CNP [Partnered Physician] - 10/17/16 8:30 am Fidel Pride DO [Partnered Physician] - 10/09/16 2:30 pm
--- NOTE | 2016-10-03 19:48 | Internal Med Progress Note ---
Date of Encounter: 10/03/16 Time of Encounter: 18:00 - Assessment and plan (1) Syncope Current Visit: No Status: Acute Assessment and plan: On admission 10/01, patient went to dialysis in the morning and felt some generalized weakness. She then went to the bathroom and lost consciousness for almost 5 minutes. She did fall and hit her head and neck against the toilet. She regained consciousness at the dialysis unit and was given 1 amp of D50. She then presented to [facility] ED. her blood glucose was found to be 700 and she also had elevated anion gap. On arrival to our medical floor, her blood glucose was 367 and anion gap was normal. EKG - normal sinus rhythm and no acute ST-T changes flat Troponinemia likely from renal failure 09/26/16- recent left heart cath - no coronary artery disease, normal LV function CT C-spine - no acute process CT brain - negative for any acute process. remote infarct. echo showed normal LVEF in August and September. no telemetry events during this hospitalization. no syncopal episodes either. Patient experienced an episode of diaphoresis, chest pain, palpitations and feeling of passing out while walking. All her symptoms resolved spontaneously after a few seconds of sitting down. Hemoglobin is unchanged at 8.5. Her symptoms could be secondary to a small vessel disease versus autonomic dysautonomia. Will add Imdur and Coreg. Patient was instructed to sit up in the chair twice this evening and in the morning. We will repeat 6 minute walk test tomorrow morning. Qualifiers: Syncope type: unspecified Qualified Code(s): R55 - Syncope and collapse (2) Anemia Current Visit: No Status: Chronic Assessment and plan: hgb at 8.5. chronic anemia secondary to folate deficiency. no bleeding. close monitor. Qualifiers: Anemia type: other cause Other causes of anemia: chronic disease, other Qualified Code(s): D63.8 - Anemia in other chronic diseases classified elsewhere (3) ESRD (end stage renal disease) on dialysis Current Visit: No Status: Chronic Assessment and plan: appreciate nephrology input. (4) Type I diabetes mellitus Current Visit: No Status: Chronic Assessment and plan: insulin pump in place and working well. Qualifiers: Diabetes mellitus complication status: with kidney complications Diabetes mellitus complication detail: with nephropathy Qualified Code(s): E10.21 - Type 1 diabetes mellitus with diabetic nephropathy (5) HTN (hypertension) Current Visit: No Status: Chronic Assessment and plan: low normal bp. hold amlodipine and lisinopril. Qualifiers: Hypertension type: essential hypertension Qualified Code(s): I10 - Essential (primary) hypertension - Subjective Interval history: Patient walked under supervision and after a few minutes she experienced diaphoresis, palpitations, chest pain and feeling of passing out. Her vital signs were within normal limits except her heart rate which went up to 120s but by the time she had an EKG it showed a sinus tachycardia heart rate 108. During my assessment, she does not complain of any chest pain or shortness of breath. She reports that all her symptoms start on minimal exertion. - Constitutional Vitals: Temp Pulse Resp BP Pulse Ox 98.8 F 98 17 175/92 97 10/03/16 16:55 10/03/16 16:55 10/03/16 16:55 10/03/16 16:55 10/03/16 16:55 General appearance: Present: cooperative, A&O X 3, pleasant, no acute distress, answers questions appropriately - Neck Neck exam general surgery: Present: supple, trachea midline. Absent: lymphadenopathy - Respiratory Respiratory exam: Present: CTAB. Absent: wheezes - Cardiovascular Cardiovascular exam: Present: RRR - GI/Abdominal GI/Abdominal exam: Present: normal bowel sounds, soft. Absent: distended, tenderness - Extremities Exam Extremities exam: Absent: pedal edema - Back Exam Back exam: Absent: CVA tenderness (L), CVA tenderness (R) - Neurological Exam Neurological exam: Present: alert, oriented X3, no focal deficits, strengths equal and symetr throughout. Absent: facial droop, speech deficit - Skin Skin exam: Absent: rash Internal Medicine: Result - Labs CBC & Chem 7: 10/03/16 05:00 10/03/16 05:00 Labs: Short CBC 10/03/16 Range/Units 05:00 WBC 2.9 L (4.3-11.1) K/mcL Hgb 8.5 L (11.5-15.4) g/dL Hct 24.2 L (35.3-44.9) % Plt Count 116 L (140-400) K/mcL Neutrophils # 1.5 L (1.6-8.9) K/mcL BMP 10/03/16 05:00 Sodium 137 Potassium 4.3 Chloride 98 Carbon Dioxide 30 H BUN 34 H D Creatinine 2.59 H Glucose 215 H Calcium 8.0 L Consult Discharge Plan - Plan Referrals: Angélica Hollis CNP [Partnered Physician] - 10/17/16 8:30 am Fidel Pride DO [Partnered Physician] - 10/09/16 2:30 pm
[2016-10-03] MEDS ORDERED: ALPRAZolam 0.5 MG TABLET PO PRN (19:52)
[2016-10-03] MEDS: Isosorbide MONOnitrate (24 HR) 30 MG TAB.ER.24H PO SCH (22:05)
[2016-10-03] MEDS: Aspirin 81 MG TAB.CHEW PO SCH (22:05)
[2016-10-03] MEDS ORDERED: *HR* Morphine 2 MG/ML SYRINGE IVP ONE (22:19)
[2016-10-04] MEDS ORDERED: *HR* HYDROcodone/Acet 5/325 mg TABLET PO ONE (03:52)
[2016-10-04] MEDS ORDERED: *HR* HYDROcodone/Acet 5/325 mg TABLET ONE (03:52)
[2016-10-04 06:05] LABS: Basophils % 0.6 %; Eosinophils % 1.1 %; Hematocrit 24.1 % (35.3-44.9); Hemoglobin 8.3 g/dL (11.5-15.4); Immature Granulocytes % 0.3 % (0-4); Lymphocytes # 1.1 K/mcL (0.6-4.6); Lymphocytes % 29.9 %; Mean Corpuscular HGB Conc 34.4 g/dL (31.6-35.5); Mean Corpuscular Hemoglobin 31.8 pg (28.0-33.3); Mean Corpuscular Volume 92.3 fL (83.0-100.0); Mean Platelet Volume 10.9 fL (9.4-12.4); Monocytes # 0.4 K/mcL (0.0-1.3); Monocytes % 10.2 %; Neutrophils # 2.1 K/mcL (1.6-8.9); Platelet Count 133 K/mcL (140-400); Red Blood Count 2.61 M/mcL (3.82-4.97); Red Cell Distribution Width 13.4 % (11.5-14.5); Segmented Neutrophils % 57.9 %
[2016-10-04 06:32] LABS: Calcium 8.5 mg/dL (8.6-10.8); Magnesium 1.6 mg/dL (1.6-2.6); Phosphorous 4.9 mg/dL (2.3-4.7); Potassium 4.6 mEq/L (3.5-4.5)
[2016-10-04] MEDS: Furosemide 40 MG TABLET PO SCH ×2 (09:29→16:20)
[2016-10-04] MEDS: Ondansetron 4 MG/2 ML VIAL IVP PRN ×2 (09:29→17:47)
[2016-10-04] MEDS: hydrALAZINE 25 MG TABLET PO SCH ×3 (09:29→21:45)
[2016-10-04] MEDS: Isosorbide MONOnitrate (24 HR) 30 MG TAB.ER.24H PO SCH (09:30)
[2016-10-04] MEDS: Diltiazem CD (24hr) 120 MG CAPSULE PO SCH (09:30)
[2016-10-04] MEDS: Aspirin 81 MG TAB.CHEW PO SCH (09:30)
[2016-10-04] MEDS: Calcium Acetate 667 MG CAPSULE PO SCH ×3 (09:30→16:20)
[2016-10-04] MEDS: Famotidine 20 MG TABLET PO SCH ×2 (09:30→16:20)
[2016-10-04] MEDS: INSULIN PUMP IVP SCH (10:32)
--- NOTE | 2016-10-04 12:01 | Electrocardiograph Report ---
[place] [id number] Test Date: 2016-10-03 Pat Name: Iman Elkins Department: 112 Room: 2A Gender: F Front Office Director: : 1975 Requested By: Rosalva Dao Order Number: [id number] Reading MD: Mihcael Cao MD Measurements Intervals [place] Rate: 108 P: 67 VT: 159 QRS: 12 QRSD: 77 T: 57 QT: 353 QTc: 417 Interpretive Statements SINUS TACHYCARDIA BASELINE ARTIFACT Electronically Signed On 10-04-2016 12:00:33 EDT by Michael Cao MD
--- NOTE | 2016-10-04 12:28 | Nephrology Progress Note ---
<Kerri Colon Ted - Last Filed: 10/04/16 12:29> Date of Encounter: 10/04/16 Time of Encounter: 12:26 - Assessment and Plan (1) ESRD (end stage renal disease) on dialysis Status: Chronic Plan for HD tomorrow Continue renal diet Avoid nephrotoxins if possible (2) Syncope Status: Acute per primary team Qualifiers: Syncope type: unspecified Qualified Code(s): R55 - Syncope and collapse (3) Type I diabetes mellitus Status: Chronic per primary team Qualifiers: Diabetes mellitus complication status: with kidney complications Diabetes mellitus complication detail: with nephropathy Qualified Code(s): E10.21 - Type 1 diabetes mellitus with diabetic nephropathy Subjective Principal diagnosis: syncope, ESRD on dialysis, DM type 1 Interval history: Patient seen and examined. States she is feeling better. Waiting for P.T. to come and get her up to walk. Objective - Vital Signs Vital signs: Vital Signs Temp Pulse Resp BP Pulse Ox 10/04/16 11:51 98.2 F 93 20 120/75 3 10/04/16 07:46 98.0 F 91 16 162/78 96 10/03/16 23:07 98.3 F 93 15 122/75 97 10/03/16 19:53 98.2 F 93 14 181/96 97 10/03/16 16:55 98.8 F 98 17 175/92 97 10/03/16 14:30 110 20 146/78 98 10/03/16 14:03 130 Intake and Output 10/03/16 10/04/16 10/04/16 23:59 07:59 15:59 Intake Total 360 / 360 Balance 360 / 360 Intake: Oral 360 / 360 Other: Meal Dinner Percent of Meal Consumed 90% # Voids 1 1 Weight 83.2 kg Blood Glucose* 339 387 500 Patient Weight 10/04/16 23:59 Weight 83.2 kg - General Appearance General appearance: Present: well-developed, well-nourished, appears started age EENT: Present: ATNC, mucous membranes moist, hearing intact, vision intact Neck: Present: supple Respiratory: Present: clear Cardiology: Present: no edema, normal S1, normal S2 Gastrointestinal: Present: no tenderness, no guarding Integumentary: Present: warm and dry Neurologic: Present: alert and oriented x3 Psychiatric: Present: mood/affect appropriate, cooperative - Lab 10/04/16 04:05 10/04/16 04:05 Most recent lab results Calcium 8.5 mg/dL (8.6-10.8) L 10/04/16 04:05 Phosphorus 4.9 mg/dL (2.3-4.7) H 10/04/16 04:05 Magnesium 1.6 mg/dL (1.6-2.6) 10/04/16 04:05 Consult Discharge Plan - Plan Instructions: Syncope (DC), Diabetes Mellitus Type 2 in Adults (DC) Referrals: Angélica Hollis CNP [Partnered Physician] - 10/17/16 8:30 am Desiree Mccormack CNP [Advanced Practice Nurse] - 10/11/16 3:00 pm (please follow up as schedule...) Fidel Pride DO [Partnered Physician] - 10/09/16 2:30 pm (Please follow up timur schedule...) Prescriptions: Blood Sugar Diagnostic [Glucose Test Strip] 1 each [facility] #120 strip Carvedilol [Coreg] 3.125 mg PO BIDWM #30 tab Isosorbide MONOnitrate (24 HR) [Imdur] 30 mg PO DAILY #30 <George Waldrop - Last Filed: 11/04/16 12:44> Date of Encounter: 10/04/16 Objective - Lab 10/05/16 08:20 10/05/16 08:20 Most recent lab results Calcium 8.3 mg/dL (8.6-10.8) L 10/05/16 08:20 Phosphorus 4.9 mg/dL (2.3-4.7) H 10/04/16 04:05 Magnesium 1.6 mg/dL (1.6-2.6) 10/04/16 04:05 - Attending Attestation I examined this patient and my medical decision-making was reviewed with the Resident Physician. I agree with the documented findings, disposition and treatment plan as described except to the extent set forth below. Pt seen and examined with no new complaints. Feels back to baseline. On exam, she is well developed and well nourished, articulate NAD, No LE edema noted. with a functional permcath noted with no signs of drainage or infection. Next HD planned tomorrow if still hospitalized.
[2016-10-04] MEDS ORDERED: D5% in Water 1,000 ML IVC PRN (12:31)
[2016-10-04] MEDS ORDERED: Dextrose Gel 15 GM PO PRN ×2 (12:31)
[2016-10-04] MEDS ORDERED: *HR* Dextrose 50 % in Water (Syg) 50 ML SYRINGE IVP PRN (12:31)
[2016-10-04] MEDS: Insulin LISPRO 300 UNITS/3 ML VIAL SQ SCH ×2 (12:46→16:21)
--- NOTE | 2016-10-04 18:24 | Internal Med Progress Note ---
Date of Encounter: 10/04/16 Time of Encounter: 15:00 - Assessment and plan (1) Syncope Current Visit: No Status: Acute Assessment and plan: On admission 10/01, patient went to dialysis in the morning and felt some generalized weakness. She then went to the bathroom and lost consciousness for almost 5 minutes. She did fall and hit her head and neck against the toilet. She regained consciousness at the dialysis unit and was given 1 amp of D50. She then presented to [facility]. her blood glucose was found to be 700 and she also had elevated anion gap. On arrival to our medical floor, her blood glucose was 367 and anion gap was normal. EKG - normal sinus rhythm and no acute ST-T changes flat Troponinemia likely from renal failure 09/26/16- recent left heart cath - no coronary artery disease, normal LV function CT C-spine - no acute process CT brain - negative for any acute process. remote infarct. echo showed normal LVEF in August and September. no telemetry events during this hospitalization. no syncopal episodes either. awaiting PT/OT eval. continue Imdur and Coreg. Qualifiers: Syncope type: unspecified Qualified Code(s): R55 - Syncope and collapse (2) Anemia Current Visit: No Status: Chronic Assessment and plan: hgb at 8.3. chronic anemia secondary to folate deficiency. no bleeding. close monitor. Qualifiers: Anemia type: other cause Other causes of anemia: chronic disease, other Qualified Code(s): D63.8 - Anemia in other chronic diseases classified elsewhere (3) ESRD (end stage renal disease) on dialysis Current Visit: No Status: Chronic Assessment and plan: appreciate nephrology input. (4) Type I diabetes mellitus Current Visit: No Status: Chronic Assessment and plan: insulin pump in place and working well. had episodes of hyperglycemia with BS at 400s, her pump only give 10 units max of coverage. start ISS. consult perioperative educator to address pump settings. strict diabetic diet. Qualifiers: Diabetes mellitus complication status: with kidney complications Diabetes mellitus complication detail: with nephropathy Qualified Code(s): E10.21 - Type 1 diabetes mellitus with diabetic nephropathy (5) HTN (hypertension) Current Visit: No Status: Chronic Assessment and plan: low normal bp. hold amlodipine and lisinopril. Qualifiers: Hypertension type: essential hypertension Qualified Code(s): I10 - Essential (primary) hypertension - Subjective Interval history: patient feels very weak. - Constitutional Vitals: Temp Pulse Resp BP Pulse Ox 98.3 F 79 14 129/77 98 10/04/16 16:08 10/04/16 16:08 10/04/16 16:08 10/04/16 16:08 10/04/16 16:08 General appearance: Present: cooperative, A&O X 3, pleasant, no acute distress, answers questions appropriately - Eye Eye exam: Present: PERRL, sclera anicteric - Neck Neck exam general surgery: Present: supple, trachea midline. Absent: lymphadenopathy - Respiratory Respiratory exam: Present: CTAB - Cardiovascular Cardiovascular exam: Present: RRR - GI/Abdominal GI/Abdominal exam: Present: normal bowel sounds, soft. Absent: distended, tenderness - Extremities Exam Extremities exam: Absent: pedal edema - Back Exam Back exam: Absent: CVA tenderness (L), CVA tenderness (R) - Neurological Exam Neurological exam: Present: alert, oriented X3, no focal deficits, strengths equal and symetr throughout. Absent: facial droop, speech deficit - Skin Skin exam: Absent: rash Internal Medicine: Result - Labs CBC & Chem 7: 10/04/16 04:05 10/04/16 04:05 Labs: Short CBC 10/04/16 Range/Units 04:05 WBC 3.5 L (4.3-11.1) K/mcL Hgb 8.3 L (11.5-15.4) g/dL Hct 24.1 L (35.3-44.9) % Plt Count 133 L (140-400) K/mcL Neutrophils # 2.1 (1.6-8.9) K/mcL BMP 10/04/16 04:05 Sodium 134 L Potassium 4.6 H Chloride 98 Carbon Dioxide 25 BUN 29 H Creatinine 2.54 H Glucose 253 H Calcium 8.5 L - Impressions Impressions Chest X-Ray 10/03/16 15:50 IMPRESSION: No acute process. D/ / Bryant Joseph MD / Bryant Joseph MD Interpreting Provider: Bryant Joseph MD Consult Discharge Plan - Plan Referrals: Angélica Hollis CNP [Partnered Physician] - 10/17/16 8:30 am Fidel Pride DO [Partnered Physician] - 10/09/16 2:30 pm
[2016-10-04] MEDS ORDERED: Insulin LISPRO 300 UNITS/3 ML VIAL SQ SCH (21:00)
[2016-10-05] MEDS: Ondansetron 4 MG/2 ML VIAL IVP PRN (06:02)
[2016-10-05] MEDS: Diltiazem CD (24hr) 120 MG CAPSULE PO SCH (08:13)
[2016-10-05] MEDS: Aspirin 81 MG TAB.CHEW PO SCH (08:13)
[2016-10-05] MEDS: Famotidine 20 MG TABLET PO SCH (08:14)
[2016-10-05] MEDS: Calcium Acetate 667 MG CAPSULE PO SCH ×2 (08:14→13:35)
[2016-10-05] MEDS: Insulin LISPRO 300 UNITS/3 ML VIAL SQ SCH ×2 (08:29→13:35)
[2016-10-05 08:32] LABS: Basophils % 0.3 %; Eosinophils # 0.1 K/mcL (0.0-0.6); Eosinophils % 2.7 %; Hematocrit 23.4 % (35.3-44.9); Immature Granulocytes % 0.3 % (0-4); Lymphocytes # 0.7 K/mcL (0.6-4.6); Lymphocytes % 19.9 %; Mean Corpuscular HGB Conc 34.2 g/dL (31.6-35.5); Mean Corpuscular Hemoglobin 31.5 pg (28.0-33.3); Mean Corpuscular Volume 92.1 fL (83.0-100.0); Mean Platelet Volume 10.4 fL (9.4-12.4); Monocytes # 0.3 K/mcL (0.0-1.3); Monocytes % 7.3 %; Neutrophils # 2.6 K/mcL (1.6-8.9); Platelet Count 114 K/mcL (140-400); Red Blood Count 2.54 M/mcL (3.82-4.97); Red Cell Distribution Width 13.3 % (11.5-14.5); Segmented Neutrophils % 69.5 %
[2016-10-05] MEDS: INSULIN PUMP IVP SCH (08:33)
[2016-10-05] MEDS ORDERED: *HR* Heparin 10,000 UNIT/10 ML VIAL IV PRN (08:40)
[2016-10-05] MEDS ORDERED: 0.9 % Sodium Chloride 250 ML IVC PRN (08:40)
[2016-10-05] MEDS ORDERED: 0.9 % Sodium Chloride 1,000 ML PRIME SCH (08:45)
[2016-10-05 08:46] LABS: Albumin 3.1 g/dL (3.5-5.0); Albumin/Globulin Ratio 1.2 (1.1-2.2); Bilirubin,Direct 0.4 mg/dL (0.0-0.5); Bilirubin,Indirect 0.4 mg/dL (0.0-1.2); Bilirubin,Total 0.8 mg/dL (0.2-1.2); Calcium 8.3 mg/dL (8.6-10.8); Globulin 2.6 g/dL (2.4-3.5); Potassium 5.1 mEq/L (3.5-4.5); Total Protein 5.7 g/dL (6.0-8.3)
[2016-10-05] MEDS ORDERED: 0.9 % Sodium Chloride 2,000 ML ONE (08:59)
--- NOTE | 2016-10-05 09:23 | Discharge Summary ---
Date of Encounter: 10/05/16 Time of Encounter: 09:19 - Discharge Diagnosis (1) Syncope Priority: Primary Status: Acute Qualifiers: Syncope type: unspecified Qualified Code(s): R55 - Syncope and collapse (2) Anemia Priority: Secondary Status: Chronic Qualifiers: Anemia type: other cause Other causes of anemia: chronic disease, other Qualified Code(s): D63.8 - Anemia in other chronic diseases classified elsewhere (3) ESRD (end stage renal disease) on dialysis Priority: Secondary Status: Chronic (4) Type I diabetes mellitus Priority: Secondary Status: Chronic Qualifiers: Diabetes mellitus complication status: with kidney complications Diabetes mellitus complication detail: with nephropathy Qualified Code(s): E10.21 - Type 1 diabetes mellitus with diabetic nephropathy (5) HTN (hypertension) Priority: Secondary Status: Chronic Qualifiers: Hypertension type: essential hypertension Qualified Code(s): I10 - Essential (primary) hypertension - Discharge Medications Prescriptions: Blood Sugar Diagnostic [Glucose Test Strip] [address] [facility] #120 strip Carvedilol [Coreg] 3.125 mg PO BIDWM #30 tab Isosorbide MONOnitrate (24 HR) [Imdur] 30 mg PO DAILY #30 Home Medications: Rifaximin [Xifaxan] 550 mg PO DAILY 12/21/15 [History] Ergocalciferol (VITAMIN D2) [Drisdol (50,000 Unit)] 50,000 unit PO QWEEK #12 capsule 12/24/15 [Rx] Levothyroxine [Synthroid] 100 mcg PO 0630 tablet 12/24/15 [Rx] Cyanocobalamin (B-12) [Vitamin B12] 1,000 mcg IM QMONTH 05/22/16 [History] SUMAtriptan Succinate [Imitrex] 100 mg PO DAILY PRN 05/22/16 [History] Calcium Acetate [Phos-LO] 667 mg PO TIDWM 09/06/16 [History] CloNIDine Patch [Catapres-Tts] 0.6 mg TD QWEEK 09/06/16 [History] Diltiazem CD (24hr) [Cardizem CD] 120 mg PO DAILY 09/06/16 [History] Subcutaneous Insulin Pump [T:Slim] 1 each ACHS 09/06/16 [History] Doxercalciferol [Hectorol] 5 mcg PO 3XW 09/26/16 [History] Epoetin Rickey [Epogen] 4,000 unit IV 3XW 09/26/16 [History] Furosemide [Lasix] 80 mg PO BID 09/26/16 [History] Aspirin [Lo-Dose Aspirin EC] 81 mg PO DAILY 10/01/16 [History] Promethazine [Phenergan] 25 mg PO Q6HR PRN 10/01/16 [History] hydrALAZINE [HydrALAZINE] 50 mg PO TID 10/01/16 [History] ALPRAZolam [Xanax 0.5 MG Tablet] 0.5 mg PO HS PRN tab 10/05/16 [Rx] Blood Sugar Diagnostic [Glucose Test Strip] 1 each ACHS #120 strip 10/05/16 [ Rx] Carvedilol [Coreg] 3.125 mg PO BIDWM #30 tab 10/05/16 [Rx] Isosorbide MONOnitrate (24 HR) [Imdur] 30 mg PO DAILY #30 10/05/16 [Rx] Lisinopril [Zestril] 20 mg PO DAILY #0 10/05/16 [Rx] Allergies/Adverse Reactions: Allergies cephalexin [From Keflex] Allergy (Verified 10/01/16 07:48) Hives patient states she can take benadryl with this ciprofloxacin [From Cipro] Allergy (Verified 10/01/16 07:48) Hives patient states she can take benadryl with this levofloxacin [From Levaquin] Allergy (Verified 10/01/16 07:48) Difficulty Breathing ofloxacin Allergy (Verified 10/01/16 07:48) Rash patient states she can take benadryl with this penicillin V Allergy (Verified 10/01/16 07:48) Hives patient states she can take benadryl with this sulfamethoxazole [From Bactrim] Allergy (Verified 10/01/16 07:48) Hives patient states she can take benadryl with this trimethoprim [From Bactrim] Allergy (Verified 10/01/16 07:48) Hives patient states she can take benadryl with this Procedures/tests Complete & Pending: Procedures Performed prior 72 hours Category Date Time Status ECG 12 lead ECG [ECG] Routine Y 10/03/16 14:31 Completed Date of admission: 10/01/16 13:27 Primary care physician: Marko Hylton Jr, MD Consults: 10/01/16 14:28 Consult to Certified Drug Counselor [CONS] Routine Reason for SW Consult: d/c planning 10/01/16 15:44 Consult to Nephrology [CONS] Routine Consulting Provider: Kidney Noelle/IVY/ASHWINI/GEORGI Reason for Consult: ESRD on HD Call Completed: No 10/02/16 10:30 Consult to Dialysis [CONS] ONCE 10/03/16 09:00 Consult to Dialysis [CONS] ONCE 10/04/16 18:20 Consult to Complaint Clerk [CONS] Routine Comment: Reason for Consult: Patient needs further education on insulin pump 10/05/16 08:45 Consult to Dialysis [CONS] ONCE - Patient Status Disposition: Home, Self-Care Condition: Good Functional capacity at discharge: independent ambulation Overall status at discharge: patient is progressing back to baseline - Discharge Instructions Instructions: Syncope (DC), Diabetes Mellitus Type 2 in Adults (DC) Follow Up With: Angélica Hollis CNP [Partnered Physician] - 10/17/16 8:30 am Desiree Mccormack CNP [Advanced Practice Nurse] - 10/11/16 3:00 pm (please follow up as schedule...) Fidel Pride DO [Partnered Physician] - 10/09/16 2:30 pm (Please follow up timur schedule...) - Diet and Activity Activity: resume usual activities as tolerated Diet: diabetic diet, low fat, low cholesterol, low salt diet Interval History: patient has no complains. no chest pain. no shortness of breath. Hospital course: Ms. Elkins is a 41 year old female with past medical history of end-stage renal disease on dialysis, type 1 diabetes mellitus on insulin pump, hypertension and chronic anemia who presented with a chief complaint of syncopal episode. On admission 10/01, patient went to dialysis in the morning and felt some generalized weakness. She then went to the bathroom and lost consciousness for almost 5 minutes. She did fall and hit her head and neck against the toilet. She regained consciousness at the dialysis unit and was given 1 amp of D50. She then presented to [place] ED. her blood glucose was found to be 700 and she also had elevated anion gap. On arrival to our medical floor, her blood glucose was 367 and anion gap was normal. EKG - normal sinus rhythm and no acute ST-T changes. flat Troponinemia likely from renal failure. 09/26/16- recent left heart cath - no coronary artery disease, normal LV function. CT C- spine - no acute process. CT brain - negative for any acute process. remote infarct. echo showed normal LVEF in August and September. no telemetry events during this hospitalization. no syncopal episodes either. Patient had 2 attempts of ambulating that resulted on tachycardia, diaphoresis and feeling lightheaded. Her symptoms could be secondary to anxiety, dysautonomia or small vessel coronary artery disease. She was started on imdur and coreg and all her symptoms resolved even on exertion. PLAN: Follow-up with primary care physician in one week. I explain to the patient and her all the findings, clinical diagnosis and treatment. They verbalized understanding and agreed with the plan. - Time Spent with Patient Total time spent providing and/or coordinating discharge services: - Constitutional Vitals: Temp Pulse Resp BP Pulse Ox 97.6 F 84 16 130/82 98 10/05/16 08:18 10/05/16 08:18 10/05/16 08:18 10/05/16 08:18 10/05/16 08:18 General appearance: Present: cooperative, A&O X 3, pleasant, no acute distress, answers questions appropriately - Neck Neck exam general surgery: Present: supple, trachea midline. Absent: lymphadenopathy - Respiratory Respiratory exam: Present: CTAB - Cardiovascular Cardiovascular exam: Present: RRR - GI/Abdominal GI/Abdominal exam: Present: normal bowel sounds, soft. Absent: distended, tenderness - Extremities Exam Extremities exam: Absent: pedal edema - Back Exam Back exam: Absent: CVA tenderness (L), CVA tenderness (R) - Neurological Exam Neurological exam: Present: alert, oriented X3, no focal deficits, strengths equal and symetr throughout. Absent: facial droop, speech deficit - Skin Skin exam: Absent: rash
--- NOTE | 2016-10-05 11:34 | Nephrology Progress Note ---
Date of Encounter: 10/05/16 Time of Encounter: 11:32 - Assessment and Plan (1) ESRD (end stage renal disease) on dialysis Current Visit: No Status: Chronic Patient seen on dialysis. Renal dose medications. Resume outpatient dialysis schedule upon discharge. Renal diet. Subjective Principal diagnosis: syncope, ESRD on dialysis, DM type 1 Interval history: Patient seen on dialysis. No new complaint. She feels better. Review of systems overall is stable. She anticipates discharge today. Objective - Vital Signs Vital signs: Vital Signs Temp Pulse Resp BP Pulse Ox 10/05/16 10:50 98 10/05/16 09:32 98 10/05/16 08:18 97.6 F 84 16 130/82 98 10/05/16 05:27 97.8 F 76 16 134/79 97 10/04/16 23:00 98.3 F 71 16 131/79 98 10/04/16 20:48 75 18 142/85 96 10/04/16 16:08 98.3 F 79 14 129/77 98 10/04/16 11:51 98.2 F 93 20 120/75 3 Intake and Output 10/04/16 10/05/16 10/05/16 23:59 07:59 15:59 Intake Total 0 / 0 Output Total 0 / 0 Balance 0 / 0 Intake: Oral 0 / 0 Output: Urine 0 / 0 Other: # Voids 1 Weight 84.1 kg Blood Glucose* 67 88 297 Patient Weight 10/05/16 23:59 Weight 84.1 kg - General Appearance General appearance: Present: well-developed, well-nourished EENT: Present: ATNC Neck: Present: supple Additional Comments: Respirations are unlabored. Cardiology: Present: regular rate Neurologic: Present: alert and oriented x3 Psychiatric: Present: mood/affect appropriate - Lab 10/05/16 08:20 10/05/16 08:20 Most recent lab results Calcium 8.3 mg/dL (8.6-10.8) L 10/05/16 08:20 Phosphorus 4.9 mg/dL (2.3-4.7) H 10/04/16 04:05 Magnesium 1.6 mg/dL (1.6-2.6) 10/04/16 04:05 Consult Discharge Plan - Plan Instructions: Syncope (DC), Diabetes Mellitus Type 2 in Adults (DC) Referrals: Angélica Hollis CNP [Partnered Physician] - 10/17/16 8:30 am Fidel Pride DO [Partnered Physician] - 10/09/16 2:30 pm Prescriptions: Carvedilol [Coreg] 3.125 mg PO BIDWM #30 tab Isosorbide MONOnitrate (24 HR) [Imdur] 30 mg PO DAILY #30
[2016-10-05] MEDS: Furosemide 40 MG TABLET PO SCH (13:31)
[2016-10-05] MEDS: hydrALAZINE 25 MG TABLET PO SCH ×2 (13:31→16:12)
[2016-10-05] MEDS: Isosorbide MONOnitrate (24 HR) 30 MG TAB.ER.24H PO SCH (13:36)
[2016-10-05 16:57] VITALS: BP 156/78
== END 2016-10-05 16:58 | disposition home or self-care (01) ==
LOC: 2NNU → SUATTDRO 13:27 → 2ANU 10-02 10:22
PROVIDERS: ADMIT Internal Medicine; ATTEND Internal Medicine

== ENCOUNTER 2016-12-07 12:05 | Observation (INO) ==
[2016-12-07] MEDS ORDERED: Naloxone 0.4 MG/ML INJ IVP PRN (16:11)
[2016-12-07] MEDS ORDERED: Acetaminophen 325 MG TABLET PO PRN (16:11)
[2016-12-07] MEDS ORDERED: D5% in Water 1,000 ML IVC PRN (18:20)
[2016-12-07] MEDS ORDERED: Dextrose Gel 15 GM PO PRN ×2 (18:20)
[2016-12-07] MEDS ORDERED: *HR* Dextrose 50 % in Water (Syg) 50 ML SYRINGE IVP PRN (18:20)
[2016-12-07] MEDS ORDERED: *HR* OxyCODONE/APAP 5/325 TABLET PO PRN (18:21)
--- NOTE | 2016-12-07 18:29 | Internal Med History&Physical ---
<Denise Servin M - Last Filed: 12/07/16 19:55> Date of Encounter: 12/07/16 Time of Encounter: 18:19 Assessment and Plan (1) Chest pain Current visit: Yes Status: Acute Patient reports severe, stabbing chest pain radiating to back after dialysis today, lasting for 1/2 hour and relieved by aspirin and zofran given in [place] [facility]. EKG showed sinus rhythm with no ST elevations or depressions. Troponin negative at 0.01. CXR showed no acut cardiopulmonary process. D-Dimer was elevated so a CTA was obtained and showed no evidence of PE. She had a recent cardiac workup, including stress, echo and left heart cath in August and September of this year. LHC showed angiographically normal coronary arteries. Continuous patient monitor serial troponins. Qualifiers: Chest pain type: precordial pain Qualified Code(s): R07.2 - Precordial pain (2) Confusion and disorientation Current visit: Yes Status: Acute Patient reports having episodes of confusion and disorientation since her glaucoma surgery on Saturday. She reports short term memory issues and difficulty recalling words. She is alert and oriented on my assessment, answering questions appropriately. She was neurologically intact with equal strength bilaterally and cranial nerves intact. CT head ordered and showed no acute intracranial process. (3) ESRD (end stage renal disease) on dialysis Current visit: Yes Status: Chronic Patient with ESRD on dialysis [facility], she follows with Dr. Rodas. She completed her dialysis session today. Cr 1.86. Potassium 3.2. No acute need for dialysis at this time. Nephrology consulted. (4) Diabetes type I Current visit: Yes Status: Chronic Check Hgb A1c. diabetic diet. check blood sugars ACHS Hold insulin pump Give long acting levemir 12u HS Sliding scale correction dose ACHS hypoglycemic protocol. Qualifiers: Diabetes mellitus complication status: with kidney complications Diabetes mellitus complication detail: with chronic kidney disease Chronic kidney disease stage: stage 3 (moderate) Qualified Code(s): E10.22 - Type 1 diabetes mellitus with diabetic chronic kidney disease; N18.3 - Chronic kidney disease, stage 3 (moderate) (5) Hypokalemia Current visit: Yes Status: Acute Potassium of 3.2 at [place] [facility], given 10mEq of potassium PO. Given ESRD, will not give additional potassium and will recheck chemistry in the morning. Continuous patient monitor. (6) DVT prophylaxis Current visit: Yes Status: Acute anti-embolic stockings heparin SQ TID Internal Medicine - H&P: HPI Chief complaint: chest pain Admitted From: Emergency Dept Plans for Post Hospital Care: Home History of present illness: Ms. Elkins is a 41 year old female with hypertension, type 1 diabetes on insulin pump, CHF, end-stage renal disease on hemodialysis Saturday, was transferred from [facility] ED today with complaints of chest pain. Patient reports that she had dialysis today and after completing her session she developed severe stabbing sharp chest pain radiating to her back and lasting for approximately one half hour. This pain was accompanied by shortness of breath. She was given aspirin and Zofran in the ER, which she reports relieved her pain, and she is chest pain-free on my assessment. Patient reports she has been feeling weak and fatigued over the last week. She reports she had glaucoma surgery of her left eye on Saturday and ever since then she has had pain in her left eye as well as episodes of confusion, and disorientation. She denies any palpitations, vomiting, abdominal pain, diarrhea, chills or sweats. Evaluation in [place] [facility] revealed potassium of 3.2, troponin was negative at 0.01. EKG showed sinus rhythm with no ST changes, chest x-ray showed no acute cardiopulmonary process. Creatinine was elevated to 1.86 consistent with her diagnosis of end-stage renal disease. She was given 10 mEq of by mouth potassium for her potassium of 3.2. And she arrived here, d-dimer was obtained and was elevated above 800, so his CTA was obtained, which showed no evidence of acute PE. On exam, patient alert and oriented, answering questions appropriately. Lungs are clear bilaterally to auscultation heart had regular rate and rhythm. Abdomen soft, nontender, with positive bowel sounds. She was neurologically intact, with equal strength bilaterally. Past Med Surg Social Fam HX - Past Medical History Medical history: CHF, diabetes, dialysis, fibromyalgia, GERD, hypertension, kidney stones, renal disease, thyroid disease, other Psychiatric history: anxiety, depression - Past Surgical History Surgical History: appendectomy, cholecystectomy, hysterectomy, other - Social History Smoking Status: Never smoker Smokeless Tobacco Status: No Alcohol use: none Drug use: none - Family History Mother Hx Family Neurologic Disorders: Yes (fibromyglia) Father Hx Family Cardiac Disorders: Yes (stents, HI, cath, HTN, DVT) Hx Family Endocrine Disorder: Yes (diabetes) Hx Family Neurologic Disorders: Yes (stroke) Internal Medicine - H&P: Meds Diltiazem CD (24hr) [Cardizem CD] 120 mg PO DAILY 09/06/16 [History] Subcutaneous Insulin Pump [T:Slim] 1 each ACHS 09/06/16 [History] Furosemide [Lasix] 80 mg PO BID 09/26/16 [History] Aspirin [Lo-Dose Aspirin EC] 81 mg PO DAILY 10/01/16 [History] Blood Sugar Diagnostic [Glucose Test Strip] 1 each [facility] #120 strip 10/05/16 [ Rx] ALPRAZolam [Xanax 0.5 MG Tablet] 0.5 mg PO TID 12/07/16 [History] Atropine Sulfate in 0.9% NaCl [Atropine 0.01%-Ns Eye Drops] 1 drop LEFT EYE TID 12/07/16 [History] Brimonidine 0.2% [Alphagan] 1 drop LEFT EYE TID 12/07/16 [History] Calcium Acetate [Phos-LO] 667 - 1,334 mg PO AD 12/07/16 [History] Carvedilol [Coreg] 50 mg PO BID 12/07/16 [History] Cyclobenzaprine [Flexeril] 10 mg PO TID PRN 12/07/16 [History] Dorzolamide [Trusopt] 1 drop LEFT EYE TID 12/07/16 [History] Gabapentin [Neurontin] 100 mg PO DAILY 12/07/16 [History] Levothyroxine Sodium [Levoxyl] 100 mcg PO DAILY 12/07/16 [History] Lisinopril [Zestril] 40 mg PO DAILY 12/07/16 [History] Nystatin Cream [Mycostatin Cream] 1 appl TP BID 12/07/16 [History] OxyCODONE/APAP 5/325 [Percocet 5/325 MG] 1 tab PO Q8HR PRN 12/07/16 [History] Pantoprazole Sodium [Protonix] 40 mg PO BID 12/07/16 [History] Timolol Maleate 0.5% [Timolol Maleate 0.5%] 1 drop LEFT EYE TID 12/07/16 [ History] Zinc Sulfate 220 mg PO DAILY 12/07/16 [History] acetaZOLAMIDE [Diamox] 250 mg PO BID 12/07/16 [History] 3 Allergy/AdvReac Type Severity Reaction Status Date / Time levofloxacin [From Levaquin] Allergy Difficulty Verified 10/01/16 07:48 Breathing ofloxacin Allergy Rash Verified 10/01/16 07:48 All Systems PM: A 10-system review of systems was performed and is negative for pertinent findings except as documented above in the HPI. - Constitutional Constitutional: fatigue, weakness, no chills, no fever(s), no night sweats - EENT Eyes: pain (left eye, had glaucoma surgery on 12/03/16), no change in vision, no discharge, no photophobia Ears: no ear discharge, no ear pain, no tinnitus Nose, mouth and throat: no dysphagia, no nasal discharge, no neck pain, no sore throat - Cardiovascular Cardiovascular ROS IM: chest pain, dyspnea, lightheadedness, no diaphoresis, no palpitations, no syncope - Respiratory Respiratory: dyspnea, no cough, no wheezing, no excessive phlegm production - Gastrointestinal Gastrointestinal: no abdominal pain, no diarrhea, no hematemesis, no hematochezia, no melena, no nausea, no vomiting - Genitourinary Genitourinary: no change in urinary stream, no dysuria, no flank pain, no hematuria - Musculoskeletal Musculoskeletal ROS IM: no numbness, no tingling - Integumentary Integumentary IM: no rash, no unusual bruising - Neurological Neurological ROS: confusion (intermittent), memory loss (short term), no convulsions, no focal weakness, no numbness, no tingling, no tremor(s) - Hematologic/Lymphatic Hematologic/Lymphatic: no easy bruising - Constitutional Vitals: Temp Pulse Resp BP Pulse Ox 99.3 F 77 18 102/64 98 12/07/16 16:12 12/07/16 16:12 12/07/16 16:12 12/07/16 16:12 12/07/16 16:12 General appearance: Present: A&O X 3, pleasant, no acute distress - Head Head exam: Present: atraumatic, normocephalic - Eye Eye exam: Present: PERRL, conjuntiva pink, sclera anicteric Pupils: Present: PERRL - Neck Neck exam general surgery: Present: supple, trachea midline. Absent: lymphadenopathy - Respiratory Respiratory exam: Present: CTAB. Absent: accessory muscle use, rales, rhonchi, wheezes - Cardiovascular Cardiovascular exam: Present: RRR, +S1, +S2. Absent: diastolic murmur, gallop, rubs, systolic murmur - GI/Abdominal GI/Abdominal exam: Present: normal bowel sounds, soft, no peritoneal signs. Absent: distended, tenderness - Extremities Exam Extremities exam: Present: warm, radial pulses palpable and symmetrical. Absent : calf tenderness, cyanotic, pedal edema - Neurological Exam Neurological exam: Present: CN II-XII intact, oriented X3, no focal deficits, strengths equal and symetr throughout. Absent: pronater drift, facial droop, speech deficit - Skin Skin exam: Present: dry, intact Internal Med - H&P Results - Labs Labs: Labs from [place]: Hgb 9.2 Hct 25.7 WBC 3.3 Plt 154 Na 138 K 3.2 Cl 98 Co2 30 BUN 11 Cr 183 Glu 92 trop 0.01 All Lab Results (24 Hours) 12/07/16 12/07/16 Range/Units 17:10 17:33 D-Dimer 802 H (0-500) ng/mLFEU Troponin I 0.01 (0-0.03) ng/mL - Diagnostic Studies CT scan - chest Additional comments: Chest CTA 12/07/16 18:07 IMPRESSION: 1. No evidence of pulmonary embolism or dissection. 2. Noncalcified nodule within the medial aspect of left lower lobe. This may have increased slightly when compared to the previous exam, although it is not well visualized on the previous exam. Correlate with any history of neoplasm. If there is no history of neoplasm, to be safe, a repeat chest CT in approximately 3 months is recommended to ensure stability. At that point, if it is stable, standard Fleischner society guidelines could be followed. D/ / Naif Vasquez MD / Naif Vasquez MD Interpreting Provider: Naif Vasquez MD CT scan - head Additional comments: Head CT 12/07/16 18:00 IMPRESSION: No acute intracranial abnormality. 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 D/ /07/2016 18:42:53 Kalie Iraheta MD / vladimir Interpreting Provider: Kalie Iraheta MD <Nick Nickerson - Last Filed: 12/07/16 22:37> Date of Encounter: 12/07/16 Internal Medicine - H&P: HPI History of present illness: Ms. Elkins is a 41 year old female All Systems PM: A 10-system review of systems was performed and is negative for pertinent findings except as documented above in the HPI. - Constitutional Vitals: Temp Pulse Resp BP Pulse Ox 98.4 F 85 16 122/79 97 12/07/16 19:23 12/07/16 19:23 12/07/16 19:23 12/07/16 19:23 12/07/16 19:23 Internal Med - H&P Results - Labs Labs: Cardiac Enzymes 12/07/16 Range/Units 17:10 Troponin I 0.01 (0-0.03) ng/mL - Impressions ITS Impressions Head CT 12/07/16 18:00 IMPRESSION: No acute intracranial abnormality. 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 D/ /07/2016 18:42:53 Kalie Iraheta MD / vladimir Interpreting Provider: Kalie Iraheta MD Chest CTA 12/07/16 18:07 IMPRESSION: 1. No evidence of pulmonary embolism or dissection. 2. Noncalcified nodule within the medial aspect of left lower lobe. This may have increased slightly when compared to the previous exam, although it is not well visualized on the previous exam. Correlate with any history of neoplasm. If there is no history of neoplasm, to be safe, a repeat chest CT in approximately 3 months is recommended to ensure stability. At that point, if it is stable, standard Fleischner society guidelines could be followed. D/ / Naif Vasquez MD / Naif Vasquez MD Interpreting Provider: Naif Vasquez MD - Attending Attestation I examined this patient and my medical decision-making was reviewed with the STAFF DEVELOPMENT EDUCATOR. I agree with the documented findings, disposition and treatment plan as described except to the extent set forth below. Patient is a 5-year-old female with past medical history of CHF, diabetes, ESRD on dialysis, hypertension, thyroid disease and anxiety and depression. She presented to ED with complaints of chest pain. Symptoms started just after she completed dialysis session. D-dimer is elevated and CT angio of chest is negative for PE. Troponin is negative. Trend troponin. Continue all home medications. Patient had a recent left heart catheterization done in September which was normal. No other acute events or complaints. Heart rate 85, blood pressure 122/79, O2 sat 97% on room air. Heart S1-S2 positive no murmurs or rubs. Lungs bilateral good air entry. Abdomen soft nontender.
[2016-12-07] MEDS: acetaZOLAMIDE 250 MG TABLET PO SCH (20:37)
[2016-12-07] MEDS: ALPRAZolam 0.5 MG TABLET PO SCH (20:38)
[2016-12-07] MEDS: Atropine Sulfate 1% 40 DROP/2 ML BOTTLE LEFT EYE SCH (20:38)
[2016-12-07] MEDS: Dorzolamide OPTH 10 ML BOTTLE LEFT EYE SCH (20:42)
[2016-12-07] MEDS: Furosemide 40 MG TABLET PO SCH (20:50)
[2016-12-07] MEDS ORDERED: Insulin DETEMIR 100 UNIT/ML X5UNITS SQ SCH (21:00)
[2016-12-07] MEDS ORDERED: Insulin LISPRO 300 UNITS/3 ML VIAL SQ SCH (21:00)
[2016-12-07] MEDS: *HR* Heparin 5,000 UNIT/ML VIAL SQ SCH (22:11)
[2016-12-08 04:23] LABS: Basophils % 0.7 %; Eosinophils # 0.1 K/mcL (0.0-0.6); Eosinophils % 2.2 %; Hematocrit 22.6 % (35.3-44.9); Hemoglobin 7.8 g/dL (11.5-15.4); Lymphocytes # 0.9 K/mcL (0.6-4.6); Lymphocytes % 32.2 %; Mean Corpuscular HGB Conc 34.5 g/dL (31.6-35.5); Mean Corpuscular Hemoglobin 32.5 pg (28.0-33.3); Mean Corpuscular Volume 94.2 fL (83.0-100.0); Mean Platelet Volume 9.9 fL (9.4-12.4); Monocytes # 0.4 K/mcL (0.0-1.3); Monocytes % 14.1 %; Neutrophils # 1.4 K/mcL (1.6-8.9); Platelet Count 115 K/mcL (140-400); Red Cell Distribution Width 15.3 % (11.5-14.5); Segmented Neutrophils % 50.8 %
[2016-12-08 04:27] LABS: Calcium 8.4 mg/dL (8.6-10.8); Potassium 3.9 mEq/L (3.5-4.5)
[2016-12-08] MEDS: *HR* Heparin 5,000 UNIT/ML VIAL SQ SCH (06:54)
[2016-12-08] MEDS ORDERED: Insulin LISPRO 300 UNITS/3 ML VIAL SQ SCH (07:30)
[2016-12-08] MEDS ORDERED: Calcium Acetate 667 MG CAPSULE PO SCH (08:00)
[2016-12-08] MEDS: Furosemide 40 MG TABLET PO SCH (08:29)
[2016-12-08] MEDS: ALPRAZolam 0.5 MG TABLET PO SCH (08:29)
[2016-12-08] MEDS: Zinc Sulfate 220 MG CAPSULE PO SCH (08:30)
[2016-12-08] MEDS: acetaZOLAMIDE 250 MG TABLET PO SCH (08:30)
[2016-12-08] MEDS: Dorzolamide OPTH 10 ML BOTTLE LEFT EYE SCH (08:31)
[2016-12-08] MEDS: Atropine Sulfate 1% 40 DROP/2 ML BOTTLE LEFT EYE SCH (08:31)
--- NOTE | 2016-12-08 08:47 | Discharge Summary ---
<Bryant Arguello - Last Filed: 12/08/16 08:45> Date of Encounter: 12/08/16 Time of Encounter: 08:45 - Discharge Diagnosis (1) Chest pain Priority: Primary Status: Resolved Qualifiers: Chest pain type: unspecified Qualified Code(s): R07.9 - Chest pain, unspecified (2) Confusion and disorientation Priority: Primary Status: Resolved (3) ESRD (end stage renal disease) on dialysis Priority: Secondary Status: Chronic (4) Hypokalemia Priority: Secondary Status: Resolved (5) Diabetes type I Priority: Secondary Status: Chronic Qualifiers: Diabetes mellitus complication status: with kidney complications Diabetes mellitus complication detail: with chronic kidney disease Chronic kidney disease stage: stage 3 (moderate) Qualified Code(s): E10.22 - Type 1 diabetes mellitus with diabetic chronic kidney disease; N18.3 - Chronic kidney disease, stage 3 (moderate) - Discharge Medications Home Medications: Diltiazem CD (24hr) [Cardizem CD] 120 mg PO DAILY 09/06/16 [History] Subcutaneous Insulin Pump [T:Slim] 1 each ACHS 09/06/16 [History] Furosemide [Lasix] 80 mg PO BID 09/26/16 [History] Aspirin [Lo-Dose Aspirin EC] 81 mg PO DAILY 10/01/16 [History] Blood Sugar Diagnostic [Glucose Test Strip] 1 each [facility] #120 strip 10/05/16 [ Rx] ALPRAZolam [Xanax 0.5 MG Tablet] 0.5 mg PO TID 12/07/16 [History] Atropine Sulfate in 0.9% NaCl [Atropine 0.01%-Ns Eye Drops] 1 drop LEFT EYE TID 12/07/16 [History] Brimonidine 0.2% [Alphagan] 1 drop LEFT EYE TID 12/07/16 [History] Calcium Acetate [Phos-LO] 667 - 1,334 mg PO AD 12/07/16 [History] Carvedilol [Coreg] 50 mg PO BID 12/07/16 [History] Cyclobenzaprine [Flexeril] 10 mg PO TID PRN 12/07/16 [History] Dorzolamide [Trusopt] 1 drop LEFT EYE TID 12/07/16 [History] Gabapentin [Neurontin] 100 mg PO DAILY 12/07/16 [History] Levothyroxine Sodium [Levoxyl] 100 mcg PO DAILY 12/07/16 [History] Lisinopril [Zestril] 40 mg PO DAILY 12/07/16 [History] Nystatin Cream [Mycostatin Cream] 1 appl TP BID 12/07/16 [History] OxyCODONE/APAP 5/325 [Percocet 5/325 MG] 1 tab PO Q8HR PRN 12/07/16 [History] Pantoprazole Sodium [Protonix] 40 mg PO BID 12/07/16 [History] Timolol Maleate 0.5% 1 drop LEFT EYE TID 12/07/16 [History] Zinc Sulfate 220 mg PO DAILY 12/07/16 [History] acetaZOLAMIDE [Diamox] 250 mg PO BID 12/07/16 [History] Allergies/Adverse Reactions: 3 Allergy/AdvReac Type Severity Reaction Status Date / Time levofloxacin [From Levaquin] Allergy Difficulty Verified 10/01/16 07:48 Breathing ofloxacin Allergy Rash Verified 10/01/16 07:48 Procedures/tests Complete & Pending: Procedures Performed prior 72 hours Category Date Time Status CT angio chest [CT] Stat Cat Scan 12/07/16 18:[address] head/brain wo con [CT] Routine Cat Scan 12/07/16 18:00 Draft Date of admission: 12/07/16 15:46 Primary care physician: Marko Hylton Jr, MD Consults: 12/07/16 16:46 Consult to Nephrology [CONS] Routine Consulting Provider: Kidney Noelle/IVY/ASHWINI/GEORGI Reason for Consult: 41F with ESRD on HD MWF, had dialysis today. Here with chest pain and intermittant disorientation Call Completed: No Discharging clinician: Bryant Arguello Anticipated date of discharge: 12/08/16 - Patient Status Disposition: Home, Self-Care Condition: Fair Functional capacity at discharge: independent ambulation Overall status at discharge: patient is progressing back to baseline - Discharge Instructions Instructions: Chest Pain (DC) Follow Up With: Marko Hylton Jr, MD [Primary Care Provider] - (Web request 12/08/16 ) Additional Instructions: Please follow-up with your primary care physician in one week. Please resume your home medications. Please keep your follow-up appointments. Please return for any new or worsening symptoms. - Diet and Activity Activity: increase activity as tolerated Diet: advance to your usual diet Interval History: Patient seen and examined at bedside. Patient states that she feels okay today. She states that she feels generally weak which is a chronic problem for her. She denies any chest pain since admission. Patient states that she wants to go home. Hospital course: Ms. Elkins is a 41 year old female with history of type 1 diabetes, ESRD presents with chest pain. Patient states that she has had chronic medical issues over the last several months including initiation of dialysis 4 months ago and is not affected dialysis catheter removal but no which she has felt extremely weak since then. Patient presented to the hospital yesterday after dialysis due to severe chest pain. It resolved by the time of admission. The patient had a full cardiac workup included left heart catheterization which revealed angiographically normal coronary arteries. In discussion with the patient she had several follow up appointments both locally and at the [facility]. Patient feels that she will benefit more from outpatient follow-up and medication treatment. Patient is asking to go home. Patient will be discharged home in stable condition. - Time Spent with Patient Total time spent providing and/or coordinating discharge services: - Constitutional Vitals: Temp Pulse Resp BP Pulse Ox 98.3 F 74 14 102/48 96 12/08/16 06:33 12/08/16 06:33 12/08/16 06:33 12/08/16 06:33 12/08/16 06:33 General appearance: Present: A&O X 3, pleasant, no acute distress - Respiratory Respiratory exam: Present: CTAB. Absent: rales, rhonchi - Cardiovascular Cardiovascular exam: Present: RRR. Absent: gallop, rubs, systolic murmur Additional comments: Port present on the left side of the chest pain temporary permanent catheter present in the right side of the chest. Both are clean dry and intact. - GI/Abdominal GI/Abdominal exam: Present: normal bowel sounds, soft. Absent: distended, tenderness - Extremities Exam Extremities exam: Present: warm. Absent: pedal edema, tenderness - Neurological Exam Neurological exam: Present: alert, CN II-XII intact, oriented X3, no focal deficits <Rickey Tavarez P - Last Filed: 12/11/16 19:09> Date of Encounter: 12/11/16 Date of admission: 12/07/16 15:46 Primary care physician: Marko Hylton Jr, MD Consults: 12/07/16 16:46 Consult to Nephrology [CONS] Routine Consulting Provider: Kidney Noelle/IVY/ASHWINI/GEORGI Reason for Consult: 41F with ESRD on HD MWF, had dialysis today. Here with chest pain and intermittant disorientation Call Completed: No Hospital course: Ms. Elkins is a 41 year old female - Time Spent with Patient Total time spent providing and/or coordinating discharge services: - Constitutional Vitals: Temp Pulse Resp BP Pulse Ox 98.7 F 82 16 109/66 100 12/08/16 10:44 12/08/16 10:44 12/08/16 10:44 12/08/16 10:44 12/08/16 10:44 - Attending Attestation I examined this patient and my medical decision-making was reviewed with the Resident Physician. I agree with the documented findings, disposition and treatment plan as described except to the extent set forth below. please see event note on the date of discharge
[2016-12-08] MEDS ORDERED: Gabapentin 100 MG CAPSULE PO SCH (09:00)
[2016-12-08] MEDS ORDERED: Diltiazem CD (24hr) 120 MG CAPSULE PO SCH (09:00)
[2016-12-08] MEDS ORDERED: Aspirin Enteric Coated 81 MG Tablet PO SCH (09:00)
[2016-12-08] MEDS ORDERED: Lisinopril 20 MG TABLET PO SCH (09:00)
[2016-12-08 10:15] LABS: Hemoglobin A1C 4.9 %
[2016-12-08 10:53] VITALS: BP 109/66
--- NOTE | 2016-12-08 18:40 | Event Note ---
Date of Encounter: 12/08/16 Time of Encounter: 18:39 Due to technical error I cannot find the progress note/discharge summary signed by the resident. I tried multiple times but the message showing up is updates in progress. Please see detailed for the discharge summary of this patient from the resident' s note.
== END 2016-12-08 11:15 | disposition home or self-care (01) ==
LOC: 2ANU
PROVIDERS: ADMIT Internal Medicine; ATTEND Internal Medicine

== ENCOUNTER 2017-02-19 12:01 | Inpatient (IN) ==
--- NOTE | 2017-02-19 14:05 | Emergency Department Note ---
Disposition Clinical Impression: Pulmonary congestion, Viral syndrome, CKD (chronic kidney disease), stage IV Fluid overload Qualifiers: Hypervolemia type: unspecified Qualified Code(s): E87.70 - Fluid overload, unspecified Disposition: Admitted As Inpatient Condition: Fair Time of Disposition: 15:44 SOB HPI - General Chief Complaint: ED Shortness of Breath/Dyspnea Stated Complaint: UTE x2days Time Seen by Provider: 02/19/17 13:19 Source: patient Mode of arrival: ambulatory Limitations: no limitations Nursing Notes Reviewed: Yes Vital Signs Reviewed: Yes - History of Present Illness 41-year-old female presents the ED complaining of a cough. As well as shortness of breath. Patient is on dialysis due to renal failure due to ATN most likely coming from a medication reaction. She is a 3 days a week dialysis patient with . She says she is normally Saturday but due to the holiday her last dialysis treatment was on Saturday she was unable to complete the treatment due to being hypotensive. She states that she has had a cough for approximately 3-4 days. Patient does have a history of leukopenia, severe anemia as well as being immunocompromised stent . Patient states she has been septic 3 times in the last 6 months 1 times where they had to remove her fistula as another time related to remove her left eye. These all occurred while she was at [facility]. Patient states that her has been sick with a cough as well as what worried her. Patient states she has not had her dialysis treatment since Saturday she today was supposed to go to training for getting home dialysis treatments. She was unable to go due to the shortness of breath and they sent her here to be evaluated. She is also having bilateral leg swelling does not look more than her normal. Patient is having no other complaints at this time including chest pain, headache, blurry vision, neck pain, back pain, abdominal pain, pain with urination, changes in bowel movements, pain or tingling going down the arms or legs, generalized numbness or weakness. There has been no fevers the patient states she normally does not have a fever due to her leukopenia. She is not nauseous or have any vomiting. - Related Data Home Medications Medication Instructions Recorded Confirmed Furosemide [Lasix] 80 mg PO BID 09/26/16 02/19/17 Aspirin [Lo-Dose Aspirin EC] 81 mg PO DAILY 10/01/16 02/19/17 ALPRAZolam [Xanax 0.5 MG Tablet] 0.5 mg PO TID 12/07/16 02/19/17 Calcium Acetate [Phos-LO] 667 - 1,334 mg PO AD 12/07/16 02/19/17 Carvedilol [Coreg] 50 mg PO BID 12/07/16 02/19/17 Levothyroxine Sodium [Levoxyl] 100 mcg PO DAILY 12/07/16 02/19/17 Lisinopril [Zestril] 40 mg PO DAILY 12/07/16 02/19/17 Pantoprazole Sodium [Protonix] 40 mg PO BID 12/07/16 02/19/17 Insulin Glargine [Lantus] 10 unit SQ BID 02/19/17 02/19/17 Insulin LISPRO [HumaLOG] 0 units SQ TIDWM PRN 02/19/17 02/19/17 NIFEdipine [Nifedipine ER] 60 mg PO DAILY 02/19/17 02/19/17 Allergies Allergy/AdvReac Type Severity Reaction Status Date / Time levofloxacin [From Levaquin] Allergy Difficulty Verified 02/19/17 12:53 Breathing ofloxacin Allergy Rash Verified 02/19/17 12:53 Review of Systems: 10 point review of systems done and negative unless otherwise stated in history of present illness. All systems ED: reviewed and negative except as stated. Review of Systems: As Per [facility] Past Medical History - Past Medical History Attestation: Yes The following information was validated with the patient. Medical history: Reports: CHF, CVA, diabetes, dialysis, GERD, hypertension, kidney stones, renal disease, thyroid disease, other Surgical history: Reports: appendectomy, cholecystectomy, hysterectomy, other Psychiatric history: Reports: anxiety, depression [employer] history: Reports: no [employer] history - Social History Smoking Status: Never smoker Smokeless Tobacco Status: No Alcohol use: Reports: none Drug use: Reports: none Physical Exam - General Limitations: no limitations General appearance: alert - Head Head exam: atraumatic, normocephalic, normal inspection - Eye Eye exam: Present: normal appearance, PERRL, EOMI - ENT ENT exam: normal exam, normal oropharynx, mucous membranes moist - Neck Neck exam: Present: normal inspection, full ROM, trachea midline - Chest Chest inspection: Present: normal inspection, symmetric chest wall rise - Respiratory Respiratory exam: Absent: respiratory distress, wheezes, stridor, accessory muscle use, prolonged expiratory phase - Expanded Respiratory Exam Location: decreased breath sounds: Left, Right, Lower (Very mildly) - Cardiovascular Cardiovascular exam: Present: regular rate, normal rhythm, normal heart sounds - Abdominal Exam Abdominal exam: Present: soft, Non-Tender. Absent: tenderness, distention, guarding, rebound, rigidity - Extremities Exam Extremities exam: Present: normal inspection, full ROM. Absent: tenderness, pedal edema - Expanded Lower Extremity Exam Neurovascular/Tendon exam: Present: normal capillary refill. Absent: pulse deficit, motor deficit, sensory deficit, tendon deficit - Back Exam Back exam: Present: normal inspection, full ROM. Absent: tenderness, CVA tenderness (R), CVA tenderness (L) - Neurological Exam Neurological exam: Present: alert, oriented X3 - Skin Skin exam: Present: warm, dry, intact, normal color Course Course Narrative: 41-year-old female presents to the ED with an extensive medical history including ATN, being on the transplant list for her kidneys and pancreas. Due to her immunocompromised state as well as her medical history we will do a whole septic workup on her including blood cultures, CBC, CMP, lactate with a timed lactate will be EKG two-view chest x-ray, urinalysis. Due to patient being in a compromise we will treat her as possibly acquired and will start her on vancomycin, Zosyn. Patient is allergic to Levaquin so we will start her on cefepime rather than Levaquin. Patient most likely is going to need to be admitted patient states that if it is something relatively easy she said she would rather be admitted. Amy her autism motor specialist is at [facility] so if it is very comp occasionally transferred up there. Patient also will need dialysis will contact her button tufter to have dialysis done in the inpatient setting. - Consultations Consultation #1: Spoke with the button tufter Dr. Larsen who is on-call told him about the patient and they said they will dialyze tonight or tomorrow. They are okay with us giving 0.1 of clonidine for her blood pressure. So they will see the patient was negative on the floor. Time: 15:32 Consultation #2: Spoke with the hospitalist, Dr. Tavarez who agreed to accept the patient. He asked that we stop whatever antibiotics we have not already given ST changes most likely his pleural effusion due to fluid overload. Zosyn was started given at this time so we continued that I canceled the cefepime and vancomycin. Patient is admitted to the hospitalist service in stable condition. Time: 15:36 Vital Signs Temperature 97.8 F 02/19/17 12:53 Pulse Rate 82 02/19/17 12:53 Respiratory Rate 20 02/19/17 12:53 Blood Pressure 204/113 02/19/17 12:53 O2 Sat by Pulse Oximetry 100 02/19/17 12:53 Temperature 97.8 F 02/19/17 12:53 Pulse Rate 83 02/19/17 14:41 Respiratory Rate 18 02/19/17 14:41 Blood Pressure 225/114 02/19/17 14:41 O2 Sat by Pulse Oximetry 99 02/19/17 14:41 Oxygen Delivery Oxygen Delivery Room Air Shortness of Breath/Dyspnea - MDM Narrative Medical decision making narrative: 41-year-old female presents to the ED complaining of shortness of breath as well as a cough. Patient does do three-day dialysis Saturday due to the holiday she was unable to do her normal dialysis that she had on Saturday. She was hypotensive during this treatment so she is not able to complete it. Patient does have a history of pancytopenia as well as leukopenia and anemia. Patient also has end-stage renal disease due to ATN. She is supposed to be on the kidney and pancreas transplant list at [facility] here shortly. Patient presented here she was very hypertensive she says that is normal and she does not have her dialysis for a few days. She was supposed to today set up for home dialysis but due to not feeling well she came here rather than getting the treatment. Patient has not had any fevers but said that she normally does not get fevers when she gets sick. We did basic labs including a sepsis workup the patient was not septic shock. She did not have a lactic acidosis, she was leukopenic but right around her normal. All her electrolytes were right around normal for her. Compared with past results. There was a pancytopenia which is normally given for her. She was anemic as well. Chest x- ray did show small bilateral pleural effusions. Due to her history of immunosuppression we felt like it was good to treat her. So we started cefepime , Zosyn, vancomycin. After patient was admitted hospitalist requested that we stop antibiotics the patient already got Zosyn and I canceled the cefepime and vancomycin. Patient is sitting there comfortably now. Upon telling her that she was admitted she says she will short of breath started her a double DuoNeb treatment. Also gave her 50 g of fentanyl for her pain. Spoke to the hospitalist Dr. Tavarez who agreed to admit the patient to their service. Also spoke with the button tufter automotive airconditioning mechanic Dr. Larsen who said that they would not dialyze her here tonight or tomorrow. And that she did not need emergent dialysis. Patient notified plan she is okay with this. Chest X-Ray 02/19/17 12:33 IMPRESSION: Pulmonary edema, including trace bilateral pleural effusions, worse on the left than the right. D/ / 02/19/2017 15:13:07 Elvie Mckay MD / ryan Interpreting Provider: Elvie Mckay MD - Medical Records Medical records reviewed: Yes I reviewed the patient's medical records. - Lab Data Lab results reviewed: Yes I reviewed the patient's lab results. Result diagrams: 02/19/17 14:40 02/19/17 14:35 Lab Results 02/19/17 02/19/17 02/19/17 Range/Units 14:25 14:35 14:40 WBC 3.2 L (4.3-11.1) K/mcL RBC 2.21 L (3.82-4.97) M/mcL Hgb 7.3 L (11.5-15.4) g/dL Hct 21.3 L (35.3-44.9) % MCV 96.4 (83.0-100.0) fL MCH 33.0 (28.0-33.3) pg MCHC 34.3 (31.6-35.5) g/dL RDW 15.8 H (11.5-14.5) % Plt Count 78 L (140-400) K/mcL MPV 9.5 (9.4-12.4) fL Seg Neutrophils % 76.0 % Lymphocytes % 14.0 % Monocytes % 4.0 % Eosinophils % 2.0 % Basophils % 4.0 % Neutrophils # 2.4 (1.6-8.9) K/mcL Lymphocytes # 0.5 L (0.6-4.6) K/mcL Monocytes # 0.1 (0.0-1.3) K/mcL Eosinophils # 0.1 (0.0-0.6) K/mcL Basophils # 0.1 (0.0-0.2) K/mcL Platelet Estimate Marked Decrease L (Normal) Immature Plt Fraction 1.9 (1.1-6.1) % Stomatocytes 1+ A (Not Present) PT 12.0 (9.4-12.1) Seconds INR 1.1 APTT 41.9 H (26.0-36.0) Seconds Sodium 134 L (136-145) mEq/L Potassium 3.4 L (3.5-4.5) mEq/L Chloride 103 (98-109) mEq/L Carbon Dioxide 22 (19-29) mEq/L BUN 30 H (7-20) mg/dL Creatinine 2.97 H (0.57-1.11) mg/dL Est GFR ( Amer) 21 L (> 60) Est GFR (Non-Af Amer) 17 L (> 60) BUN/Creatinine Ratio 10 (6-26) Glucose 166 H (70-99) mg/dL Calculated Osmolality 288 (280-300) Lactic Acid (0.5-2.2) mmol/L Calcium 7.8 L (8.6-10.8) mg/dL Phosphorus 4.7 (2.3-4.7) mg/dL Magnesium 1.7 (1.6-2.6) mg/dL Total Bilirubin 1.1 (0.2-1.2) mg/dL AST 20 (5-34) Units/L ALT 14 (0-55) Units/L Alkaline Phosphatase 54 (38-126) Units/L Troponin I (0-0.03) ng/mL Serum Total Protein 5.6 L (6.0-8.3) g/dL Albumin 2.6 L (3.5-5.0) g/dL Globulin 3.0 (2.4-3.5) g/dL Albumin/Globulin Ratio 0.9 L (1.1-2.2) Lipase 11 (8-78) Units/L 02/19/17 02/19/17 Range/Units 14:40 14:40 WBC (4.3-11.1) K/mcL RBC (3.82-4.97) M/mcL Hgb (11.5-15.4) g/dL Hct (35.3-44.9) % MCV (83.0-100.0) fL MCH (28.0-33.3) pg MCHC (31.6-35.5) g/dL RDW (11.5-14.5) % Plt Count (140-400) K/mcL MPV (9.4-12.4) fL Seg Neutrophils % % Lymphocytes % % Monocytes % % Eosinophils % % Basophils % % Neutrophils # (1.6-8.9) K/mcL Lymphocytes # (0.6-4.6) K/mcL Monocytes # (0.0-1.3) K/mcL Eosinophils # (0.0-0.6) K/mcL Basophils # (0.0-0.2) K/mcL Platelet Estimate (Normal) Immature Plt Fraction (1.1-6.1) % Stomatocytes (Not Present) PT (9.4-12.1) Seconds INR APTT (26.0-36.0) Seconds Sodium (136-145) mEq/L Potassium (3.5-4.5) mEq/L Chloride (98-109) mEq/L Carbon Dioxide (19-29) mEq/L BUN (7-20) mg/dL Creatinine (0.57-1.11) mg/dL Est GFR ( Amer) (> 60) Est GFR (Non-Af Amer) (> 60) BUN/Creatinine Ratio (6-26) Glucose (70-99) mg/dL Calculated Osmolality (280-300) Lactic Acid 0.5 (0.5-2.2) mmol/L Calcium (8.6-10.8) mg/dL Phosphorus (2.3-4.7) mg/dL Magnesium (1.6-2.6) mg/dL Total Bilirubin (0.2-1.2) mg/dL AST (5-34) Units/L ALT (0-55) Units/L Alkaline Phosphatase (38-126) Units/L Troponin I 0.01 (0-0.03) ng/mL Serum Total Protein (6.0-8.3) g/dL Albumin (3.5-5.0) g/dL Globulin (2.4-3.5) g/dL Albumin/Globulin Ratio (1.1-2.2) Lipase (8-78) Units/L - Radiology Data Radiology results reviewed: Yes I reviewed the patient's radiology results. - EKG Data EKG attestation: Yes I reviewed and interpreted this EKG. EKG results narrative: EKG done at 1419 reviewed by myself and attending shows normal sinus rhythm at a rate of 83, IN interval 122, QRS 86, QTC 448 with a normal axis. There is no signs of any ST elevation, T-wave abnormalities, heart strain, hypertrophy, heart blocks, WPW/goddess syndrome. There is no old EKG to compare at this time. Critical Care Time Critical Care Time: Yes Total Critical Care Time: 35 Attestation: Critical care performed: Time is exclusive of separately billable procedures. Time includes: direct patient care, patient reassessment, coordination of patient care, interpretation of data (laboratory data, radiology data, and respiratory data), review of patient's medical records, medical consultation and documentation of patient care. Procedures included in critical care time: Procedures excluded from critical care time: Attestation Statement - Attestation Attestation: I, Adam Lucero DO, examined this patient [id number] and my medical decision-making was reviewed with Dr. Kyle Larsen, Resident Physician. I agree with the documented findings, disposition and treatment plan as described except to the extent set forth below. Please see my progress notes for details. 41-year-old female with multiple medical issues including end-stage renal disease and immunosuppression presents here to the emergency room with generalized malaise fevers and chills at home that were undocumented and increased weight. Patient has not been to dialysis on Saturday and feels that she is fluid overloaded at this time. She is conversationally dyspneic and does have intermittent coarse breath sounds on evaluation. Patient has long- standing issue medical related issues including infectious etiology and persistent infections in her skin and lungs. Patient has had several infected catheter sites in the past as well. She does have a port in place. EKG chest x -ray as well as screening laboratory workup for sepsis evaluation he completed along with first doses of IV antibiotics here in the emergency room blood cultures and lactic acidosis evaluation. Patient will have consultation with nephrology at the patient's electrolytes are abnormal at this time. Patient is concerning for infectious etiology including viral syndrome versus pneumonia or urinary tract infection secondary to her history and presentation. Vital signs are reviewed and are otherwise unremarkable this time. Patient to be provided with fluids as needed for symptom control. See detailed documentation of the physical exam, medical neurological medical decision-making disposition resident physician's note [id number] Patient found to have what appears to be pulmonary congestion. Fluid retention is noted on exam. Patient will be admitted. Antibiotic regimen started with Zosyn. Initially antibiotics were withheld at the request of hospitals. Laboratory workup was otherwise unremarkable. Patient to be admitted for symptom control. Consultation placed to the on-call button tufter Dr. Larsen.
[2017-02-19] MEDS ORDERED: Vancomycin 1,250 MG in D5% in Water 250 ML IVPB ONE (14:06)
[2017-02-19] MEDS ORDERED: Piperacillin/Tazobactam 3.375 GM in D5% in Water 50 ML IVPB ONE (14:06)
[2017-02-19] MEDS ORDERED: Cefepime HCl 2,000 MG in Water for inj. (sterile) 20 ML IVP ONE (14:06)
[2017-02-19 14:51] LABS: Red Cell Distribution Width 15.8 % (11.5-14.5)
[2017-02-19 14:53] LABS: Hematocrit 21.3 % (35.3-44.9); Immature Platelets 1.9 % (1.1-6.1); Mean Corpuscular HGB Conc 34.3 g/dL (31.6-35.5); Mean Corpuscular Volume 96.4 fL (83.0-100.0); Mean Platelet Volume 9.5 fL (9.4-12.4); Red Blood Count 2.21 M/mcL (3.82-4.97)
[2017-02-19 14:54] LABS: INR 1.1
[2017-02-19 14:56] LABS: Activated Partial Thrombo Time 41.9 Seconds (26.0-36.0)
[2017-02-19 14:57] LABS: Hemoglobin 7.3 g/dL (11.5-15.4); Platelet Count 78 K/mcL (140-400)
[2017-02-19 15:04] LABS: Albumin 2.6 g/dL (3.5-5.0); Albumin/Globulin Ratio 0.9 (1.1-2.2); Bilirubin,Total 1.1 mg/dL (0.2-1.2); Calcium 7.8 mg/dL (8.6-10.8); Magnesium 1.7 mg/dL (1.6-2.6); Phosphorous 4.7 mg/dL (2.3-4.7); Potassium 3.4 mEq/L (3.5-4.5); Total Protein 5.6 g/dL (6.0-8.3)
[2017-02-19] MEDS ORDERED: *HR* FentaNYL (PF) 100 MCG/2 ML VIAL IVP ONE (15:06)
[2017-02-19] MEDS ORDERED: cloNIDine HCl 0.1 MG TABLET PO ONE (15:21)
[2017-02-19 15:22] LABS: Basophils # 0.1 K/mcL (0.0-0.2); Eosinophils # 0.1 K/mcL (0.0-0.6); Lymphocytes # 0.5 K/mcL (0.6-4.6); Monocytes # 0.1 K/mcL (0.0-1.3); Neutrophils # 2.4 K/mcL (1.6-8.9); Platelet Estimate Marked Decrease (Normal); Stomatocytes 1+ (Not Present)
[2017-02-19] MEDS ORDERED: Ipratropium/Albuterol Neb 3 ML IH ONE (15:36)
[2017-02-19 17:10] LABS: Hepatitis B Surface Antigen Nonreactive (Nonreactive)
[2017-02-19] MEDS ORDERED: Naloxone 0.4 MG/ML INJ IVP PRN ×2 (21:38→21:40)
[2017-02-19] MEDS ORDERED: Acetaminophen 325 MG TABLET PO PRN (21:38)
[2017-02-19] MEDS ORDERED: *HR* Dextrose 50 % in Water (Syg) 50 ML SYRINGE IVP PRN (21:40)
[2017-02-19] MEDS ORDERED: D5% in Water 1,000 ML IVC PRN (21:40)
[2017-02-19] MEDS ORDERED: Dextrose Gel 15 GM PO PRN ×2 (21:40)
--- NOTE | 2017-02-19 21:44 | Internal Med History&Physical ---
Date of Encounter: 02/19/17 Time of Encounter: 21:43 Assessment and Plan (1) Fluid overload Current visit: Yes Status: Acute Renal consulted Needing HD for volume management Continue home lasix Pulse ox monitoring No clinical evidence of sepsis at current. Given recent staph epi line sepsis, completed antibiotics last sat, ED repeated 2 sets of surveillance cx - to follow Qualifiers: Hypervolemia type: other Qualified Code(s): E87.79 - Other fluid overload (2) Pulmonary congestion Current visit: Yes Status: Acute Plan per above (3) ESRD (end stage renal disease) on dialysis Current visit: No Status: Chronic continue HD Internal Medicine - H&P: HPI Chief complaint: SOB History of present illness: Ms. Elkins is a 41 year old female with ESRD who presents with volume overload. She is a MWF HD with Dr Rodas and missed HD yesterday because she has not been feeling well. She had been on HD since August. Get HD through [facility]. Was recently treated (completed antibiotics last sat) for staph epi line sepsis. In regards to her current admission she has a subacute shortness of breath for the last 4 weeks. However it got much worse last night with orthopnea, unable to lay down to sleep due to SOB. No improving features. Worsen with lying down. Also noted progressive b/l LE swelling EKG reviewed by self with rate 83, NSR XR/XR chest 2V IMPRESSION: Pulmonary edema, including trace bilateral pleural effusions, worse on the left than the right. Past Med Surg Social Fam HX - Past Medical History Medical history: CHF, CVA, diabetes, dialysis, GERD, hypertension, kidney stones , renal disease, thyroid disease, other Psychiatric history: anxiety, depression - Past Surgical History Surgical History: appendectomy, cholecystectomy, hysterectomy, other - Social History Smoking Status: Never smoker Smokeless Tobacco Status: No Alcohol use: none Drug use: none - Family History Mother Hx Family Neurologic Disorders: Yes (fibromyglia) Father Hx Family Cardiac Disorders: Yes (stents, [place], cath, HTN, DVT) Hx Family Endocrine Disorder: Yes (diabetes) Hx Family Neurologic Disorders: Yes (stroke) Internal Medicine - H&P: Meds Furosemide [Lasix] 80 mg PO BID 09/26/16 [History] Aspirin [Lo-Dose Aspirin EC] 81 mg PO DAILY 10/01/16 [History] ALPRAZolam [Xanax 0.5 MG Tablet] 0.5 mg PO TID 12/07/16 [History] Calcium Acetate [Phos-LO] 667 - 1,334 mg PO AD 12/07/16 [History] Carvedilol [Coreg] 50 mg PO BID 12/07/16 [History] Levothyroxine Sodium [Levoxyl] 100 mcg PO DAILY 12/07/16 [History] Lisinopril [Zestril] 40 mg PO DAILY 12/07/16 [History] Pantoprazole Sodium [Protonix] 40 mg PO BID 12/07/16 [History] Insulin Glargine [Lantus] 10 unit SQ BID 02/19/17 [History] Insulin LISPRO [HumaLOG] 0 units SQ TIDWM PRN 02/19/17 [History] NIFEdipine [Nifedipine ER] 60 mg PO DAILY 02/19/17 [History] 3 Allergy/AdvReac Type Severity Reaction Status Date / Time levofloxacin [From Levaquin] Allergy Difficulty Verified 02/19/17 12:53 Breathing ofloxacin Allergy Rash Verified 02/19/17 12:53 All Systems PM: A 10-system review of systems was performed and is negative for pertinent findings except as documented above in the HPI. Review of systems: ROS 14 point review of systems reviewed as best as possible given presentation. Pertinent positive or negative as per HPI or otherwise reviewed as negative - Constitutional Vitals: Temp Pulse Resp BP Pulse Ox 98.4 F 83 17 125/85 96 02/19/17 18:32 02/19/17 18:32 02/19/17 18:32 02/19/17 18:32 02/19/17 18:32 Exam: General - AAO x 3 Psych - Appropriate affect/speech. No agitation Eyes - BEN. Eye lids intact. No scleral icterus Neuro - No gross peripheral or central neuro deficits with intact CN 2-12 exam Heart - Sinus. RRR. S1 and S2 present. No added HS/murmurs appreciated. No elevated JVD appreciated. Lung - Adequate air entry b/l, No crackles/wheezes appreciated GI - Soft, non-tender. No hepatosplenomegaly/ascites. BS+ - No CVA/suprapubic tenderness or palpable bladder distension Skin - Intact. No rash/petechiae/ecchymosis. Warm extremities MSK - Joints with normal ROM. No joint swellings Internal Med - H&P Results - Labs CBC & Chem 7: 02/19/17 14:40 02/19/17 14:35
[2017-02-19] MEDS ORDERED: Calcium Acetate 667 MG CAPSULE PO SCH (21:45)
[2017-02-19] MEDS ORDERED: Insulin LISPRO 300 UNITS/3 ML VIAL SQ ONE (22:49)
[2017-02-19] MEDS: *HR* Heparin 5,000 UNIT/ML VIAL SQ SCH (22:52)
[2017-02-19] MEDS: Insulin DETEMIR 100 UNIT/ML X5UNITS SQ SCH (22:52)
[2017-02-19] MEDS: ALPRAZolam 0.5 MG TABLET PO PRN (22:53)
[2017-02-19] MEDS: *HR* OxyCODONE Immed Rel 5 MG TABLET PO PRN (23:03)
[2017-02-20 04:36] LABS: Bilirubin,Urine Negative (Negative); Blood,Urine Small (Negative); Clarity,Urine Clear (Clear); Color,Urine Yellow (Yellow); Glucose,Urine (UA) >=1000 mg/dL (Normal); Ketones,Urine Negative (Negative); Leukocyte Esterase,Urine Negative (Negative); Nitrite,Urine Negative (Negative); PH,Urine 6.5 pH Units (5.0-8.0); Protein,Urine >=300 mg/dL (Neg-Trace); Specific Gravity,Urine 1.021 (1.010-1.025); Urobilinogen,Urine Normal (Normal)
[2017-02-20 04:38] LABS: Bacteria,Urine None Seen per hpf (None-Few); Hyaline Casts,Urine None Seen per lpf (None-Few); Squamous Epithelial Cell,Urine Many per lpf (None-Few); WBC,Urine 0-3 per hpf (0-3)
[2017-02-20] MEDS: *HR* OxyCODONE Immed Rel 5 MG TABLET PO PRN ×3 (05:20→17:42)
[2017-02-20] MEDS: *HR* Heparin 5,000 UNIT/ML VIAL SQ SCH ×3 (05:21→20:40)
[2017-02-20 05:34] LABS: Basophils % 0.4 %; Eosinophils % 1.2 %; Hematocrit 19.2 % (35.3-44.9); Hemoglobin 6.6 g/dL (11.5-15.4); Lymphocytes # 0.8 K/mcL (0.6-4.6); Lymphocytes % 30.2 %; Mean Corpuscular HGB Conc 34.4 g/dL (31.6-35.5); Mean Platelet Volume 9.3 fL (9.4-12.4); Monocytes # 0.3 K/mcL (0.0-1.3); Monocytes % 10.1 %; Red Cell Distribution Width 15.7 % (11.5-14.5); Segmented Neutrophils % 58.1 %
[2017-02-20 05:40] LABS: Neutrophils # 1.5 K/mcL (1.6-8.9); Platelet Count 54 K/mcL (140-400)
[2017-02-20 05:46] LABS: Calcium 7.6 mg/dL (8.6-10.8); Potassium 3.5 mEq/L (3.5-4.5)
[2017-02-20 06:10] LABS: Platelet Estimate Marked Decrease (Normal)
[2017-02-20] MEDS ORDERED: Calcium Acetate 667 MG CAPSULE PO SCH (07:30)
[2017-02-20] MEDS ORDERED: 0.9 % Sodium Chloride 250 ML IVC PRN (08:20)
[2017-02-20] MEDS ORDERED: *HR* Heparin 10,000 UNIT/10 ML VIAL IV PRN (08:20)
[2017-02-20] MEDS: Insulin LISPRO 300 UNITS/3 ML VIAL SQ SCH ×3 (08:30→19:21)
[2017-02-20] MEDS: Insulin DETEMIR 100 UNIT/ML X5UNITS SQ SCH ×2 (08:31→20:40)
[2017-02-20] MEDS: Aspirin Enteric Coated 81 MG Tablet PO SCH (08:34)
[2017-02-20] MEDS ORDERED: Furosemide 20 MG TABLET PO SCH (09:00)
[2017-02-20] MEDS ORDERED: NON-FORMULARY MEDICATION 1 EACH EACH (Insulin Glargine [Lantus] 10 UNIT) SQ SCH (09:00)
--- NOTE | 2017-02-20 10:55 | Internal Med Progress Note ---
Date of Encounter: 02/20/17 Time of Encounter: 10:53 - Assessment and plan (1) Fluid overload Current Visit: Yes Status: Acute Assessment and plan: Patient had missed hemodialysis sessions due to not feeling well. Nephrology was consulted, patient will receive hemodialysis today. Continue to monitor closely. Qualifiers: Hypervolemia type: other Qualified Code(s): E87.79 - Other fluid overload (2) Pancytopenia Current Visit: Yes Status: Chronic Assessment and plan: Patient has history of chronic pancytopenia, unknown etiology. Noted to have a dropping hemoglobin with 6.6. Discussed with nephrology, will transfuse only 1 unit PRBC due to patient being placed on renal transplant waiting list. Follow- up iron profile, serum vitamin B12 and folate levels. (3) HTN (hypertension) Current Visit: Yes Status: Chronic Assessment and plan: Blood pressure noted to be elevated, expect to be improved with dialysis. Continue home medications. Low-sodium diet. Qualifiers: Hypertension type: essential hypertension Qualified Code(s): I10 - Essential (primary) hypertension (4) ESRD (end stage renal disease) on dialysis Current Visit: Yes Status: Chronic Assessment and plan: Nephrology on board, patient will receive hemodialysis today. (5) Diabetes type I Current Visit: Yes Status: Chronic Assessment and plan: Blood sugars noted to be well controlled. Continue Accu-Chek blood glucose monitoring with basal bolus insulin regimen. Diabetic diet. Qualifiers: Diabetes mellitus complication status: with kidney complications Diabetes mellitus complication detail: with chronic kidney disease Chronic kidney disease stage: on chronic dialysis Qualified Code(s): E10.22 - Type 1 diabetes mellitus with diabetic chronic kidney disease; N18.6 - End stage renal disease; N18.6 - End stage renal disease; N18.6 - End stage renal disease; N18.6 - End stage renal disease; Z99.2 - Dependence on renal dialysis; Z99.2 - Dependence on renal dialysis; Z99.2 - Dependence on renal dialysis; Z99.2 - Dependence on renal dialysis (6) Anemia Current Visit: Yes Status: Chronic Assessment and plan: plan as above; Qualifiers: Anemia type: unspecified type Qualified Code(s): D64.9 - Anemia, unspecified - Subjective Interval history: Feels better, improved shortness of breath; reports headache and chest pain on taking deep breaths; has chronic leg swelling and left eye blindness; - Constitutional Vitals: Temp Pulse Resp BP Pulse Ox 98.2 F 82 17 209/103 97 02/20/17 07:57 02/20/17 07:57 02/20/17 07:57 02/20/17 07:57 02/20/17 07:57 General appearance: Present: A&O X 3, answers questions appropriately - Respiratory Respiratory exam: Present: CTAB, rales (bibasal crepts). Absent: accessory muscle use, rhonchi, wheezes - Cardiovascular Cardiovascular exam: Present: RRR, +S1, +S2. Absent: diastolic murmur, gallop, rubs, systolic murmur - GI/Abdominal GI/Abdominal exam: Present: normal bowel sounds, soft, no peritoneal signs. Absent: distended, tenderness - Extremities Exam Extremities exam: Present: pedal edema, warm, radial pulses palpable and symmetrical. 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 Absent: pronater drift, facial droop , speech deficit Internal Medicine: Result - Labs CBC & Chem 7: 02/21/17 03:45 02/21/17 03:45 Labs: Short CBC 02/20/17 Range/Units 05:17 WBC 2.5 L (4.3-11.1) K/mcL Hgb 6.6 L (11.5-15.4) g/dL Hct 19.2 L (35.3-44.9) % Plt Count 54 L (140-400) K/mcL Neutrophils # 1.5 L (1.6-8.9) K/mcL BMP 02/20/17 05:17 Sodium 134 L Potassium 3.5 Chloride 104 Carbon Dioxide 22 BUN 32 H Creatinine 2.95 H Glucose 158 H Calcium 7.6 L Urine 02/20/17 Range/Units 04:20 Urine Color Yellow (Yellow) Urine Clarity Clear (Clear) Urine pH 6.5 (5.0-8.0) pH Units Ur Specific [place] 1.021 (1.010-1.025) Urine Protein >=300 H (Neg-Trace) mg/dL Urine Glucose (UA) >=1000 H (Normal) mg/dL - ABG Interpretation ABG results: PT/INR, D-dimer PT 12.0 Seconds (9.4-12.1) 02/19/17 14:25 Consult Discharge Plan - Plan Instructions: Vitamin B-12 (Cyanocobalamin) (By mouth), Pneumonia (DC) Additional Instructions: F/up with PCP in 1-2 weeks F/up with HD unit as scheduled Referrals: Marko Hylton Jr, MD [Primary Care Provider] - 02/28/17 10:30 am (FOLLOW UP WITH BEV. BAKARI SOARES ) Prescriptions: Cyanocobalamin (B-12) [Vitamin B12] 1,000 mcg PO DAILY #30 tablet
--- NOTE | 2017-02-20 11:29 | Nephrology Consult Note ---
Date of Encounter: 02/20/17 Time of Encounter: 11:26 Assessment and Plan (1) ESRD (end stage renal disease) on dialysis Current Visit: No Status: Chronic Resume dialysis HD MWF Renal dose medications Renal diet. Nephrocaps. Patient with edema, dyspnea and uncontrolled hypertension. She thinks she is 15 pounds above dry weight. Plan for daily HD/UF until euvolemic. (2) Anemia Current Visit: No Status: Chronic Hemoglobin decreased. Monitor for bleeding. Transfuse 1 unit PrBC on dialysis. Check iron stores, vitamin b12 and folate. Spoke with Dr. Vázquez regarding plan for her care. Qualifiers: Anemia type: unspecified type Qualified Code(s): D64.9 - Anemia, unspecified (3) Diabetes type I Current Visit: No Status: Chronic Per primary team. Qualifiers: Diabetes mellitus complication status: with kidney complications Diabetes mellitus complication detail: with chronic kidney disease Chronic kidney disease stage: stage 3 (moderate) Qualified Code(s): E10.22 - Type 1 diabetes mellitus with diabetic chronic kidney disease; N18.3 - Chronic kidney disease, stage 3 (moderate) (4) HTN (hypertension) Current Visit: No Status: Chronic Uncontrolled. Should improve with UF. Resume antihypertensive medications after dialysis. Qualifiers: Hypertension type: essential hypertension Qualified Code(s): I10 - Essential (primary) hypertension (5) Pulmonary congestion Current Visit: Yes Status: Acute Should improve with HD. (6) Hypocalcemia Current Visit: Yes Status: Acute Corrected calcium is 8.7 History of Present Illness - Reason for Consult Consult date: 02/20/17 end stage renal disease - Chief Complaint Dyspnea - History of Present Illness Ms. Elkins is a 41 yo woman with DM and ESRD followed by Dr. Rodas who presents secondary to dyspnea and not feeling well. She reports that her was sick recently and she became sick shortly after. She feels malaise and dyspnea. She thinks she has gained about 15 pounds. Past Med Surg Social Fam HX - Past Medical History Medical history: CHF, CVA, diabetes, dialysis, GERD, hypertension, kidney stones , renal disease, thyroid disease, other Psychiatric history: anxiety, depression - Past Surgical History Surgical History: appendectomy, cholecystectomy, hysterectomy, other - Social History Smoking Status: Never smoker Smokeless Tobacco Status: No Alcohol use: none Drug use: none - Family History Mother Hx Family Neurologic Disorders: Yes (fibromyglia) Father Hx Family Cardiac Disorders: Yes (stents, MO, cath, HTN, DVT) Hx Family Endocrine Disorder: Yes (diabetes) Hx Family Neurologic Disorders: Yes (stroke) Medications and Allergies Furosemide [Lasix] 80 mg PO BID 09/26/16 [History] Aspirin [Lo-Dose Aspirin EC] 81 mg PO DAILY 10/01/16 [History] ALPRAZolam [Xanax 0.5 MG Tablet] 0.5 mg PO TID 12/07/16 [History] Calcium Acetate [Phos-LO] 667 - 1,334 mg PO AD 12/07/16 [History] Carvedilol [Coreg] 50 mg PO BID 12/07/16 [History] Levothyroxine Sodium [Levoxyl] 100 mcg PO DAILY 12/07/16 [History] Lisinopril [Zestril] 40 mg PO DAILY 12/07/16 [History] Pantoprazole Sodium [Protonix] 40 mg PO BID 12/07/16 [History] Insulin Glargine [Lantus] 10 unit SQ BID 02/19/17 [History] Insulin LISPRO [HumaLOG] 0 units SQ TIDWM PRN 02/19/17 [History] NIFEdipine [Nifedipine ER] 60 mg PO DAILY 02/19/17 [History] 3 Allergy/AdvReac Type Severity Reaction Status Date / Time levofloxacin [From Levaquin] Allergy Difficulty Verified 02/19/17 12:53 Breathing ofloxacin Allergy Rash Verified 02/19/17 12:53 Review of Systems All Systems: reviewed and no additional remarkable complaints except as stated ( as documented in the HPI.) Exam - Vital Signs Vital signs: Initial Vital Signs Temp Pulse Resp BP Pulse Ox 97.8 F 82 20 204/113 100 02/19/17 12:53 02/19/17 12:53 02/19/17 12:53 02/19/17 12:53 02/19/17 12:53 Vital Signs - Last 8 Hours Temp Pulse Resp BP Pulse Ox 02/20/17 07:57 98.2 F 82 17 209/103 97 Intake and Output 02/19/17 02/20/17 02/20/17 23:59 07:59 15:59 Intake Total 60 / 60 Output Total 350 / 350 Balance -350 / -350 60 / 60 Intake: Oral 60 / 60 Output: Urine 350 / 350 Other: Meal Breakfast Percent of Meal Consumed 50% Weight 86.636 kg Blood Glucose* 416 119 Patient Weight 02/20/17 23:59 Weight 86.636 kg - General Appearance General appearance: well-developed, well-nourished, chronically ill EENT: ATNC Neck: supple Respiratory: course breath sounds Cardiology: edema, regular rate, regular rhythm Gastrointestinal: no tenderness Integumentary: warm and dry Neurologic: alert and oriented x3 Musculoskeletal: no cyanosis Psychiatric: mood/affect appropriate Results - Lab Results 02/20/17 05:17 02/20/17 05:17 Most recent lab results Calcium 7.6 mg/dL (8.6-10.8) L 02/20/17 05:17 Phosphorus 4.7 mg/dL (2.3-4.7) 02/19/17 14:35 Magnesium 1.7 mg/dL (1.6-2.6) 02/19/17 14:35 Consult Discharge Plan - Plan Referrals: Marko Hylton Jr, MD [Primary Care Provider] -
[2017-02-20] MEDS: Calcium Acetate 667 MG CAPSULE PO SCH ×3 (12:00→19:40)
[2017-02-20 12:27] LABS: % Iron Saturation 38 % (15-50); Iron 72 mcg/dL (50-170); Transferrin 134 mg/dL (180-382)
[2017-02-20 12:51] LABS: Ferritin 664 ng/ml (5-204)
[2017-02-20 14:20] LABS: Folate 12.7 ng/mL (7.0-31.4)
[2017-02-20] MEDS ORDERED: 0.9 % Sodium Chloride 2,000 ML ONE (15:47)
[2017-02-20] MEDS: Ondansetron 4 MG/2 ML VIAL IVP PRN (16:42)
[2017-02-20] MEDS: NIFEdipine XL (24 HR) 60 MG TAB.ER.24 PO SCH ×2 (17:20→17:41)
[2017-02-20] MEDS: Lisinopril 20 MG TABLET PO SCH ×2 (17:20→17:41)
[2017-02-20] MEDS: Furosemide 40 MG TABLET PO SCH (17:41)
[2017-02-20] MEDS: ALPRAZolam 0.5 MG TABLET PO PRN (20:46)
[2017-02-20] MEDS ORDERED: Insulin LISPRO 300 UNITS/3 ML VIAL SQ SCH (21:00)
[2017-02-21] MEDS: *HR* OxyCODONE Immed Rel 5 MG TABLET PO PRN ×2 (03:41→12:28)
[2017-02-21 04:06] LABS: Basophils % 0.5 %; Mean Corpuscular Hemoglobin 32.7 pg (28.0-33.3); Mean Corpuscular Volume 93.8 fL (83.0-100.0)
[2017-02-21 04:08] LABS: Eosinophils # 0.1 K/mcL (0.0-0.6); Eosinophils % 2.4 %; Hematocrit 24.1 % (35.3-44.9); Hemoglobin 8.4 g/dL (11.5-15.4); Immature Platelets 3.1 % (1.1-6.1); Lymphocytes # 0.8 K/mcL (0.6-4.6); Lymphocytes % 38.8 %; Mean Corpuscular HGB Conc 34.9 g/dL (31.6-35.5); Mean Platelet Volume 9.8 fL (9.4-12.4); Monocytes # 0.2 K/mcL (0.0-1.3); Red Blood Count 2.57 M/mcL (3.82-4.97); Red Cell Distribution Width 15.8 % (11.5-14.5); Segmented Neutrophils % 47.3 %
[2017-02-21 04:15] LABS: Platelet Count 63 K/mcL (140-400)
[2017-02-21 04:32] LABS: Calcium 8.4 mg/dL (8.6-10.8); Potassium 3.7 mEq/L (3.5-4.5)
[2017-02-21 04:33] LABS: Albumin 2.5 g/dL (3.5-5.0); Calcium 8.4 mg/dL (8.6-10.8); Phosphorous 3.5 mg/dL (2.3-4.7); Potassium 3.7 mEq/L (3.5-4.5)
[2017-02-21] MEDS: *HR* Heparin 5,000 UNIT/ML VIAL SQ SCH ×2 (06:45→16:45)
[2017-02-21] MEDS ORDERED: *HR* Heparin 10,000 UNIT/10 ML VIAL IV PRN (07:37)
[2017-02-21] MEDS ORDERED: 0.9 % Sodium Chloride 250 ML IVC PRN (07:37)
[2017-02-21] MEDS: Calcium Acetate 667 MG CAPSULE PO SCH ×3 (07:59→16:45)
[2017-02-21] MEDS: Furosemide 40 MG TABLET PO SCH ×2 (07:59→16:45)
[2017-02-21] MEDS: Insulin LISPRO 300 UNITS/3 ML VIAL SQ SCH ×2 (07:59→12:21)
[2017-02-21] MEDS: NIFEdipine XL (24 HR) 60 MG TAB.ER.24 PO SCH (07:59)
[2017-02-21] MEDS: Lisinopril 20 MG TABLET PO SCH (08:00)
[2017-02-21] MEDS: Aspirin Enteric Coated 81 MG Tablet PO SCH (08:00)
[2017-02-21] MEDS: Insulin DETEMIR 100 UNIT/ML X5UNITS SQ SCH (08:02)
[2017-02-21] MEDS ORDERED: 0.9 % Sodium Chloride 2,000 ML ONE (08:28)
--- NOTE | 2017-02-21 10:11 | Nephrology Progress Note ---
Date of Encounter: 02/21/17 Time of Encounter: 10:09 - Assessment and Plan (1) Fluid overload Current Visit: Yes Status: Acute UF today Qualifiers: Hypervolemia type: other Qualified Code(s): E87.79 - Other fluid overload (2) Anemia Current Visit: No Status: Chronic Hgb 8.4 today after transfusion of PRBCs Iron 72, Tsat 38 Transferrin 134, Ferritin 664 Transfuse per parameters Qualifiers: Anemia type: unspecified type Qualified Code(s): D64.9 - Anemia, unspecified (3) ESRD (end stage renal disease) on dialysis Current Visit: No Status: Chronic Plan for HD tomorrow Continue renal diet and fluid restriction. Need better compliance with her regular outpatient HD treatments. Subjective Principal diagnosis: ESRD on dialysis, fluid overload Interval history: Patient seen and examined in dialysis. Feeling much better. Objective - Vital Signs Vital signs: Vital Signs Temp Pulse Resp BP Pulse Ox 02/21/17 07:34 98.4 F 77 17 198/96 92 02/21/17 05:07 98.0 F 72 17 155/91 95 02/20/17 23:30 97.7 F 76 19 151/80 93 02/20/17 20:00 98.4 F 74 17 149/69 96 02/20/17 19:30 98.1 F 18 178/92 02/20/17 19:00 169/90 02/20/17 18:30 189/100 02/20/17 18:00 206/95 02/20/17 17:40 98.1 F 76 17 200/95 02/20/17 17:30 206/111 02/20/17 17:10 97.6 F 75 18 194/94 02/20/17 17:00 197/101 02/20/17 16:55 97.4 F L 74 16 195/108 02/20/17 16:45 98.6 F 74 18 198/97 02/20/17 16:30 191/93 02/20/17 16:15 98.8 F 75 17 191/92 02/20/17 16:00 98.1 F 75 16 181/97 02/20/17 15:30 98.4 F 17 188/92 02/20/17 12:26 98.0 F 77 17 175/85 99 Intake and Output 02/20/17 02/21/17 02/21/17 23:59 07:59 15:59 Intake Total 1400 / 1400 0 / 0 120 / 120 Output Total 5300 / 5300 0 / 0 Balance -3900 / -3900 0 / 0 120 / 120 Intake: Oral 0 / 0 0 / 0 120 / 120 Blood Product 1400 / 1400 Rbcs Leuko Poor As-1 Unit 700 / 700 [id number] Rbcs Leuko Poor As-1 Unit 700 / 700 [id number] Output: Urine 0 / 0 0 / 0 Total Dialysis (HD) Output 5300 / 5300 Other: Meal Dinner Breakfast Percent of Meal Consumed 75% 50% Blood Glucose* 145 216 Hemodialysis Net Fluid Removed 4000 (mL) - General Appearance General appearance: Present: well-developed, well-nourished EENT: Present: ATNC, mucous membranes moist, mucous membranes dry, hearing intact Neck: Present: supple Respiratory: Present: clear Cardiology: Present: edema, normal S1, normal S2 Dialysis Vascular Access: Venous Catheter Gastrointestinal: Present: no tenderness, no guarding Integumentary: Present: warm and dry Neurologic: Present: alert and oriented x3 Psychiatric: Present: mood/affect appropriate, cooperative - Lab 02/21/17 03:45 02/21/17 03:45 Most recent lab results Calcium 8.4 mg/dL (8.6-10.8) L 02/21/17 03:45 Phosphorus 3.5 mg/dL (2.3-4.7) 02/21/17 03:45 Magnesium 1.7 mg/dL (1.6-2.6) 02/19/17 14:35 Consult Discharge Plan - Plan Referrals: Marko Hylton Jr, MD [Primary Care Provider] - (web request sent on 02/21/17)
[2017-02-21] MEDS ORDERED: Cyanocobalamin (B-12) 1,000 MCG/ML VIAL IM ONE (12:03)
[2017-02-21] MEDS: Ondansetron 4 MG/2 ML VIAL IVP PRN (12:28)
--- NOTE | 2017-02-21 14:57 | Discharge Summary ---
Date of Encounter: 02/21/17 Time of Encounter: 14:53 - Discharge Diagnosis (1) Fluid overload Priority: Primary Status: Acute Qualifiers: Hypervolemia type: other Qualified Code(s): E87.79 - Other fluid overload (2) Pancytopenia Priority: Primary Status: Chronic (3) HTN (hypertension) Priority: Secondary Status: Chronic Qualifiers: Hypertension type: essential hypertension Qualified Code(s): I10 - Essential (primary) hypertension (4) ESRD (end stage renal disease) on dialysis Priority: Secondary Status: Chronic (5) Diabetes type I Priority: Secondary Status: Chronic Qualifiers: Diabetes mellitus complication status: with kidney complications Diabetes mellitus complication detail: with chronic kidney disease Chronic kidney disease stage: on chronic dialysis Qualified Code(s): E10.22 - Type 1 diabetes mellitus with diabetic chronic kidney disease; N18.6 - End stage renal disease; N18.6 - End stage renal disease; N18.6 - End stage renal disease; N18.6 - End stage renal disease; Z99.2 - Dependence on renal dialysis; Z99.2 - Dependence on renal dialysis; Z99.2 - Dependence on renal dialysis; Z99.2 - Dependence on renal dialysis (6) Anemia Priority: Secondary Status: Chronic Qualifiers: Anemia type: unspecified type Qualified Code(s): D64.9 - Anemia, unspecified - Discharge Medications Prescriptions: Cyanocobalamin (B-12) [Vitamin B12] 1,000 mcg PO DAILY #30 tablet Home Medications: Furosemide [Lasix] 80 mg PO BID 09/26/16 [History] Aspirin [Lo-Dose Aspirin EC] 81 mg PO DAILY 10/01/16 [History] ALPRAZolam [Xanax 0.5 MG Tablet] 0.5 mg PO TID 12/07/16 [History] Calcium Acetate [Phos-LO] 667 - 1,334 mg PO AD 12/07/16 [History] Carvedilol [Coreg] 50 mg PO BID 12/07/16 [History] Levothyroxine Sodium [Levoxyl] 100 mcg PO DAILY 12/07/16 [History] Lisinopril [Zestril] 40 mg PO DAILY 12/07/16 [History] Pantoprazole Sodium [Protonix] 40 mg PO BID 12/07/16 [History] Insulin Glargine [Lantus] 10 unit SQ BID 11/28/17 [History] Insulin LISPRO [HumaLOG] 0 units SQ TIDWM PRN 02/19/17 [History] NIFEdipine [Nifedipine ER] 60 mg PO DAILY 02/19/17 [History] Cyanocobalamin (B-12) [Vitamin B12] 1,000 mcg PO DAILY #30 tablet 02/21/17 [Rx] Allergies/Adverse Reactions: 3 Allergy/AdvReac Type Severity Reaction Status Date / Time levofloxacin [From Levaquin] Allergy Difficulty Verified 02/19/17 12:53 Breathing ofloxacin Allergy Rash Verified 02/19/17 12:53 Date of admission: 02/19/17 21:38 Primary care physician: Marko Hylton Jr, MD Consults: 02/20/17 08:30 Consult to Dialysis [CONS] ONCE 02/21/17 07:45 Consult to Dialysis [CONS] ONCE Discharging clinician: Kalli Vázquez Anticipated date of discharge: 02/21/17 - Patient Status Disposition: Home, Self-Care Condition: Fair Functional capacity at discharge: independent ambulation Overall status at discharge: patient is progressing back to baseline - Discharge Instructions Instructions: Vitamin B-12 (Cyanocobalamin) (By mouth), Pneumonia (DC) Follow Up With: Marko Hylton Jr, MD [Primary Care Provider] - 02/28/17 10:30 am (FOLLOW UP WITH BEV. BAKARI SOARES ) Additional Instructions: F/up with PCP in 1-2 weeks F/up with HD unit as scheduled - Diet and Activity Activity: resume usual activities as tolerated Diet: diabetic diet, low fat, low cholesterol, low salt diet, other (renal diet) Hospital course: Ms. Elkins is a 41 year old female with the above medical problems, who was admitted with shortness of breath. Patient was noted to be in volume overload as she missed her previous hemodialysis session due to feeling sick, probably due to viral prodrome. She was given supportive care, supplemental oxygen and Lasix. Nephrology was consulted and patient received 2 consecutive hemodialysis sessions with significant improvement in her symptoms. She is currently medically stable for discharge, compliance with dialysis has been reinforced. She was also noted to have acute on chronic anemia and received one unit PRBC transfusion only, as she is on renal transplant list. - Time Spent with Patient Total time spent providing and/or coordinating discharge services: Greater than 30 minutes (40 min) - Constitutional Vitals: Temp Pulse Resp BP Pulse Ox 97.5 F L 66 17 138/81 97 02/21/17 11:36 02/21/17 11:36 02/21/17 11:36 02/21/17 11:36 02/21/17 11:36 General appearance: Present: A&O X 3, answers questions appropriately - Respiratory Respiratory exam: Present: CTAB. Absent: accessory muscle use, rales, rhonchi, wheezes
[2017-02-21 16:19] VITALS: BP 146/66
[2017-02-22] MEDS ORDERED: Cyanocobalamin (B-12) 1,000 MCG TABLET PO SCH (09:00)
--- NOTE | 2017-02-22 15:48 | Electrocardiograph Report ---
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
== END 2017-02-21 17:15 | disposition home or self-care (01) | DRG 291 ==
LOC: 2ANU 12:01 → EMEROO 12:01 → 2ANU 17:52 → SUATTDRO 21:38
PROVIDERS: ADMIT Internal Medicine Hematology & Oncology; ATTEND Internal Medicine

== ENCOUNTER 2017-05-31 13:49 | Inpatient (IN) ==
[2017-05-31 15:00] LABS: Basophils % 0.4 %; Eosinophils # 0.1 K/mcL (0.0-0.6); Eosinophils % 5.4 %; Hematocrit 22.2 % (35.3-44.9); Immature Granulocytes % 0.4 % (0-4); Immature Platelets 3.5 % (1.1-6.1); Lymphocytes # 0.5 K/mcL (0.6-4.6); Lymphocytes % 20.7 %; Mean Corpuscular HGB Conc 33.8 g/dL (31.6-35.5); Mean Corpuscular Hemoglobin 34.1 pg (28.0-33.3); Mean Corpuscular Volume 100.9 fL (83.0-100.0); Mean Platelet Volume 11.1 fL (9.4-12.4); Monocytes # 0.2 K/mcL (0.0-1.3); Monocytes % 6.2 %; Neutrophils # 1.6 K/mcL (1.6-8.9); Red Cell Distribution Width 14.4 % (11.5-14.5); Segmented Neutrophils % 66.9 %
[2017-05-31 15:07] LABS: Hemoglobin 7.5 g/dL (11.5-15.4); Platelet Count 83 K/mcL (140-400)
[2017-05-31 15:19] LABS: Troponin I < 0.03 ng/mL (< 0.04)
--- NOTE | 2017-05-31 15:31 | Emergency Department Note ---
START Narrative - START START: I examined this patient and my medical decision-making was reviewed with the Resident Physician, Dr. Archie Connell. I agree with the documented findings, disposition and treatment plan as described except to the extent set forth below. I have personally performed a face to face evaluation on this patient. I have reviewed and agree with the care plan. Briefly: 42-year-old female on home hemodialysis since last July due to suspected ATN, is on the transplant list at the [facility] presents to the emergency Department with several days of increasing cough orthopnea shortness of breath and productive sputum. Patient states that she has been "bacteremic" several times in the past but never had a fever. Patient's white count is 2.4 which is very low but is about baseline for this patient hemoglobin 7.5 which is again baseline for this patient. Chest x-ray does not show any acute infiltrate read by radiology but showing bibasilar atelectasis and effusions with evidence of pulmonary hypertension. EKG shows no acute ischemic changes. Patient will be pancultured broad-spectrum antibiotics and will be admitted. Admission disposition pending. We are providing 40 minutes of critical care services this patient.
[2017-05-31 15:35] LABS: BUN/Creatinine Ratio 14 (6-26); Blood Urea Nitrogen 46 mg/dL (6-20); Calcium 7.7 mg/dL (8.6-10.3); Carbon Dioxide 24 mEq/L (23-29); Chloride 102 mEq/L (98-107); Glucose 172 mg/dL (70-105); Osmolality,Calculated 296 (280-300); Potassium 3.6 mEq/L (3.5-5.1); Sodium 135 mEq/L (136-145); eGFR For African Americans 19 (> 60); eGFR For Non-African Americans 16 (> 60)
--- NOTE | 2017-05-31 15:47 | Emergency Department Note ---
Disposition Clinical Impression: Pancytopenia, ESRD (end stage renal disease) Volume overload Qualifiers: Hypervolemia type: unspecified Qualified Code(s): E87.70 - Fluid overload, unspecified Disposition: Admitted As Inpatient Condition: Fair Referrals: Marko Hylton Jr, MD [Primary Care Provider] - Forms: ED Satisfaction Letter SOB HPI - General Chief Complaint: ED Shortness of Breath/Dyspnea Stated Complaint: UTE Time Seen by Provider: 05/31/17 15:04 Source: patient Mode of arrival: private vehicle Limitations: no limitations Nursing Notes Reviewed: Yes Vital Signs Reviewed: Yes - History of Present Illness 42-year-old female history of end-stage renal disease on hemodialysis secondary to suspected acute tubular necrosis, type 1 diabetes who presents to the ER with a chief complaint of shortness of breath and orthopnea. Patient reports shortness of breath for the last 5 days in duration. Reports over the last 2-3 days it has been more orthotic in nature. She reports that she does dialysis at home and her last treatment was yesterday. She states that she is currently equal for her dry weight. States that she has had a productive cough. She has chest pain but only when she coughs. No fevers but reports she never seems to have a fever. No nausea or vomiting. Reports that she has been on dialysis since July and follows with nephrology here. She has been admitted numerous times here and at [facility] and reports that she has been bacteremic a few times as well. No other complaints. Pt Subjective Complaint: shortness of breath, cough Onset (ago): day(s) Severity: mild Consistency/Duration: intermittent Improves with: nothing Worsens with: lying flat Known history of: congestive heart failure Associated symptoms: Reports: chest pain (With coughing), cough, sputum production. Denies: fever Treatment prior to arrival: none Cough present: Yes Cough Description: Involuntary Cough Frequency: Intermittent Sputum production: Yes - Related Data Home oxygen amount: none Home Medications Medication Instructions Recorded Confirmed Calcium Acetate [Phos-LO] 667 mg PO AD 12/07/16 05/31/17 Levothyroxine Sodium [Levoxyl] 100 mcg PO QAM 12/07/16 05/31/17 Calcitriol 0.5 mcg PO DAILY 05/31/17 05/31/17 Calcium Acetate [Phos-LO] 1,334 mg PO TIDWM 05/31/17 05/31/17 Carvedilol 12.5 mg PO BID 05/31/17 05/31/17 Folic Acid 1 mg PO DAILY 05/31/17 05/31/17 Hydralazine HCl 50 mg PO TID 05/31/17 05/31/17 Lipase/Protease/Amylase [Faviola Haile 2 each PO AD 05/31/17 05/31/17 24,000 Units Capsule] Lipase/Protease/Amylase [Faviola Haile 3 each PO TIDWM 05/31/17 05/31/17 24,000 Units Capsule] Ondansetron HCl [Zofran] 4 mg PO Q12H 05/31/17 05/31/17 Rifaximin [Xifaxan] 550 mg PO AD 05/31/17 05/31/17 Sertraline [Zoloft] 50 mg PO DAILY 05/31/17 05/31/17 Subcutaneous Insulin Pump [T:Slim] 1 each MC AD 05/31/17 05/31/17 Previous Rx's Medication Instructions Recorded Cyanocobalamin (B-12) [Vitamin B12] 1,000 mcg PO DAILY #30 tablet 02/21/17 Allergies Allergy/AdvReac Type Severity Reaction Status Date / Time levofloxacin [From Levaquin] Allergy Difficulty Verified 05/31/17 14:03 Breathing ofloxacin Allergy Rash Verified 05/31/17 14:03 All systems ED: reviewed and negative except as stated. Constitutional: Denies: fever Cardiovascular: Reports: chest pain Respiratory: Reports: cough, dyspnea, sputum production Gastrointestinal: Denies: abdominal pain, nausea, vomiting Past Medical History - Past Medical History Attestation: Yes The following information was validated with the patient. Source: patient Medical history: Reports: CHF, CVA, diabetes, dialysis, GERD, hypertension, kidney stones, renal disease, thyroid disease, other Surgical history: Reports: appendectomy, cholecystectomy, hysterectomy, other Psychiatric history: Reports: anxiety, depression TUBE SPLICER history: Reports: no TUBE SPLICER history - Social History Smoking Status: Never smoker Smokeless Tobacco Status: No Alcohol use: Reports: none Drug use: Reports: none Physical Exam - General Limitations: no limitations General appearance: alert, in no apparent distress - Head Head exam: atraumatic, normocephalic - Eye Eye exam: Present: normal appearance - ENT ENT exam: normal exam - Neck Neck exam: Present: normal inspection, full ROM - Chest Chest inspection: Present: normal inspection, symmetric chest wall rise, other ( There is right-sided a poor without overlying erythema. Left HD access without overlying erythema or discharge.) - Respiratory Respiratory exam: Present: other (Diminished breath sounds in the bases.) - Cardiovascular Cardiovascular exam: Present: regular rate, normal rhythm, normal heart sounds - Abdominal Exam Abdominal exam: Present: soft, Non-Tender. Absent: tenderness - Extremities Exam Extremities exam: Present: normal inspection, full ROM - Expanded Upper Extremity Exam Shoulder exam: Present: normal inspection, full ROM Arm exam: Present: normal inspection, full ROM Elbow exam: Present: normal inspection, full ROM Forearm/Wrist exam: Present: normal inspection, full ROM Hand exam: Present: normal inspection, full ROM Vascular exam: Normal: radial pulse - Expanded Lower Extremity Exam Hip/Pelvis exam: Present: normal inspection, full ROM Upper leg exam: Present: normal inspection, full ROM Knee exam: Present: normal inspection, full ROM Lower leg exam: Present: normal inspection, full ROM Ankle exam: Present: normal inspection, full ROM Foot/toe exam: Present: normal inspection, full ROM - Skin Skin exam: Present: warm, dry Course Course Narrative: Patient seen and examined. Vital signs reviewed. We will get an EKG, chest x- ray as well as labs including troponin, BNP, cultures given her prior history as well. - Reevaluation(s) Reevaluation #1: Discussed results of imaging and labs the patient. Agreeable being admitted. - Consultations Consultation #1: I spoke with the on-call weapons system instrument mechanic Dr. Cui. Discussed the patient's history exam imaging labs and concerns. The patient does still make urine. He agrees with giving her a dose of 80 mg of Lasix and admission. They will see the patient consultation. Vital Signs Temperature 98.7 F 05/31/17 14:03 Pulse Rate 78 05/31/17 14:03 Respiratory Rate 20 05/31/17 14:03 Blood Pressure 184/85 05/31/17 14:03 O2 Sat by Pulse Oximetry 99 05/31/17 14:03 Temperature 98.7 F 05/31/17 14:03 Pulse Rate 78 05/31/17 14:03 Respiratory Rate 20 05/31/17 14:03 Blood Pressure 184/85 05/31/17 14:03 O2 Sat by Pulse Oximetry 99 05/31/17 14:03 Oxygen Delivery Oxygen Delivery Room Air Shortness of Breath/Dyspnea - [facility] Narrative Medical decision making narrative: 42-year-old female endstage renal disease on hemodialysis presents to the ER due to shortness of breath and orthopnea. Well-appearing here with stable vitals. EKG is sinus. Chest x-ray with mild congestion and bilateral small effusions. BNP of 1480. Noted to be pancytopenic which is chronic. Case discussed with nephrology. Recommend 80 mg of Lasix. Patient admitted to the hospitalist service with nephrology consultation. - Lab Data Lab results reviewed: Yes I reviewed the patient's lab results. Result diagrams: 05/31/17 14:29 05/31/17 14:29 Lab Results 05/31/17 05/31/17 05/31/17 Range/Units 14:29 14:29 15:18 WBC 2.4 L (4.3-11.1) K/mcL RBC 2.20 L (3.82-4.97) M/mcL Hgb 7.5 L (11.5-15.4) g/dL Hct 22.2 L (35.3-44.9) % MCV 100.9 H (83.0-100.0) fL MCH 34.1 H (28.0-33.3) pg MCHC 33.8 (31.6-35.5) g/dL RDW 14.4 (11.5-14.5) % Plt Count 83 L (140-400) K/mcL MPV 11.1 (9.4-12.4) fL Immature Gran % 0.4 (0-4) % Seg Neutrophils % 66.9 % Lymphocytes % 20.7 % Monocytes % 6.2 % Eosinophils % 5.4 % Basophils % 0.4 % Neutrophils # 1.6 (1.6-8.9) K/mcL Lymphocytes # 0.5 L (0.6-4.6) K/mcL Monocytes # 0.2 (0.0-1.3) K/mcL Eosinophils # 0.1 (0.0-0.6) K/mcL Basophils # 0.0 (0.0-0.2) K/mcL Immature Plt Fraction 3.5 (1.1-6.1) % Sodium 135 L (136-145) mEq/L Potassium 3.6 (3.5-5.1) mEq/L Chloride 102 (98-107) mEq/L Carbon Dioxide 24 (23-29) mEq/L BUN 46 H (6-20) mg/dL Creatinine 3.22 H (0.60-1.20) mg/dL Est GFR ( Amer) 19 L (> 60) Est GFR (Non-Af Amer) 16 L (> 60) BUN/Creatinine Ratio 14 (6-26) Glucose 172 H (70-105) mg/dL Calculated Osmolality 296 (280-300) Calcium 7.7 L (8.6-10.3) mg/dL Troponin I < 0.03 (< 0.04) ng/mL B-Natriuretic Peptide 1482 H (Less than 100) pg/mL - Radiology Data Radiology results reviewed: Yes I reviewed the patient's radiology results. Chest X-Ray 05/31/17 14:29 IMPRESSION: Probable pulmonary venous hypertension with small bilateral pleural effusions and bibasilar atelectasis D/ / Hamilton Casanova MD / Hamilton Casanova MD Interpreting Provider: Hamilton Casanova MD - EKG Data EKG attestation: Yes I reviewed and interpreted this EKG. EKG results narrative: EKG demonstrates sinus rhythm with a rate of 72 bpm. Normal axis. Normal intervals. Normal R-wave progression. Nonspecific ST-T wave changes in the inferior leads. No gross ST elevations or depressions. No acute ischemic findings. No significant changes from previous EKG dated 02/19/17. S.B.ABernadette - S.Tanna.A.Shashi Situation: Demographics, MOA Background: Presenting Complaint, Relevant PMH, Meds, & Allergies Assessment: Course and respsone to treatment, Exam Concerns, Patient/Family Expectation, Pertinant Lab Results Recommendation: Barrier(s) to disposition, Recommendation based on pending studies, treatments, or consults S.B.ABernadette Report Given to: Dr. Salty Burger [facility] Time: 16:38
[2017-05-31] MEDS ORDERED: Furosemide 80 MG in 0.9 % Sodium Chloride 50 ML IVPB ONE (16:15)
[2017-05-31] MEDS ORDERED: Furosemide 40 MG/4 ML VIAL IVP ONE (16:23)
[2017-05-31] MEDS ORDERED: Ondansetron 4 MG/2 ML VIAL IVP ONE (16:34)
[2017-05-31] MEDS ORDERED: Acetaminophen 325 MG TABLET PO PRN (17:06)
[2017-05-31] MEDS ORDERED: Naloxone 0.4 MG/ML INJ IVP PRN (17:10)
--- NOTE | 2017-05-31 17:15 | Internal Med History&Physical ---
Date of Encounter: 05/31/17 Time of Encounter: 17:13 Assessment and Plan (1) Diastolic CHF, acute on chronic Current visit: Yes Status: Acute Acute diastolic CHF exacerbation, volume overload Still making urine , strict I's and O's and daily weight Lasix IV, its dialyses, nephrology consult Omeprazole for GI prophylaxis and subcutaneous times heparin for DVT prophylaxis. The patient will be admitted for observation. Full code. Time spent this admission 40 minutes (2) Acute bronchitis Current visit: Yes Status: Acute Start Rocephin Order respiratory infection panel Qualifiers: Bronchitis organism: unspecified organism Qualified Code(s): J20.9 - Acute bronchitis, unspecified (3) Fluid overload Current visit: Yes Status: Acute Qualifiers: Hypervolemia type: unspecified Qualified Code(s): E87.70 - Fluid overload, unspecified (4) Pancytopenia Current visit: Yes Status: Chronic (5) ATN (acute tubular necrosis) Current visit: No Status: Acute (6) Accelerated hypertension Current visit: No Status: Chronic Continue home meds, hydralazine IV as needed (7) Anemia Current visit: No Status: Chronic Anemia of chronic disease/end-stage renal disease Consider transfusion Qualifiers: Anemia type: due to chronic kidney disease Chronic kidney disease stage: on chronic dialysis Qualified Code(s): N18.6 - End stage renal disease; D63.1 - Anemia in chronic kidney disease; D63.1 - Anemia in chronic kidney disease; Z99.2 - Dependence on renal dialysis; Z99.2 - Dependence on renal dialysis; Z99.2 - Dependence on renal dialysis; Z99.2 - Dependence on renal dialysis (8) Diabetes type I Current visit: No Status: Chronic Continue using insulin pump Qualifiers: Diabetes mellitus complication status: with kidney complications Diabetes mellitus complication detail: with chronic kidney disease Chronic kidney disease stage: on chronic dialysis Qualified Code(s): E10.22 - Type 1 diabetes mellitus with diabetic chronic kidney disease; N18.6 - End stage renal disease; N18.6 - End stage renal disease; N18.6 - End stage renal disease; N18.6 - End stage renal disease; Z99.2 - Dependence on renal dialysis; Z99.2 - Dependence on renal dialysis; Z99.2 - Dependence on renal dialysis; Z99.2 - Dependence on renal dialysis (9) ESRD (end stage renal disease) on dialysis Current visit: No Status: Chronic (10) H/O gastric bypass Current visit: No Status: Chronic Internal Medicine - H&P: HPI Chief complaint: Shortness of breath Admitted From: Emergency Dept History of present illness: Ms. Elkins is a 42 year old female with a past medical history of diabetes type 1 using an insulin pump, end-stage renal disease on hemodialysis at home) HTN, CVAs, diastolic CHF, pancytopenia, chronic anemia who came to the emergency room complaining of difficulty breathing that has been getting worse for the past 5 days. Complains of orthopnea, productive cough, white blood cell count is 2.4 closed to baseline, hemoglobin 7.5 closed baseline mental evidence of bleeding, platelets are 83, creatinine is 3.22, glucose 172 calcium 7.7 BNP is 1482, chest x-ray shows bilateral small pleural effusions and pulmonary venous hypertension features. The patient has been complaining of increased swelling of her legs, blood pressure was almost into 200s. Dr. Cui from nephrology was called and recommended to start Lasix due to volume overload, she was given 80 mg IV. Has been coughing constantly, one family member has been having an upper respiratory infection at home. Complains of chills Past Med Surg Social Fam HX - Past Medical History Medical history: CHF (Diastolic), CVA, diabetes (Insulin-dependent using an insulin pump), dialysis (End-stage renal disease on hemodialysis, history of ATN ), GERD, hypertension, kidney stones, renal disease, thyroid disease ( Hypothyroidism), other (Bacteremia with Staphylococcus aureus in the past, chronic pancytopenia, chronic anemia, CVA, history of bacterial overgrowth currently on Xifaxan) Psychiatric history: anxiety, depression - Past Surgical History Surgical History: appendectomy, cholecystectomy, hysterectomy, other (Gastric bypass, artificial left eye/blindness), bariatric surgery - Social History Smoking Status: Never smoker Smokeless Tobacco Status: No Alcohol use: none Drug use: none - Family History Mother Hx Family Neurologic Disorders: Yes (fibromyglia) Father Hx Family Cardiac Disorders: Yes (stents, [place], cath, HTN, DVT) Hx Family Endocrine Disorder: Yes (diabetes) Hx Family Neurologic Disorders: Yes (stroke) - Additional Family History Additional family history: Mother with fibromyalgia, father with myocardial infarction, hypertension, DVT, CVA and diabetes Internal Medicine - H&P: Meds Calcium Acetate [Phos-LO] 667 mg PO AD 12/07/16 [History] Levothyroxine Sodium [Levoxyl] 100 mcg PO QAM 12/07/16 [History] Cyanocobalamin (B-12) [Vitamin B12] 1,000 mcg PO DAILY #30 tablet 02/21/17 [Rx] Calcitriol 0.5 mcg PO DAILY 05/31/17 [History] Calcium Acetate [Phos-LO] 1,334 mg PO TIDWM 05/31/17 [History] Carvedilol 12.5 mg PO BID 05/31/17 [History] Folic Acid 1 mg PO DAILY 05/31/17 [History] Hydralazine HCl 50 mg PO TID 05/31/17 [History] Lipase/Protease/Amylase [Creon Dr 24,000 Units Capsule] 2 each PO AD 05/31/17 [ History] Lipase/Protease/Amylase [Creon Dr 24,000 Units Capsule] 3 each PO TIDWM [History] Ondansetron HCl [Zofran] 4 mg PO Q12H 05/31/17 [History] Rifaximin [Xifaxan] 550 mg PO AD 05/31/17 [History] Sertraline [Zoloft] 50 mg PO DAILY 05/31/17 [History] Subcutaneous Insulin Pump [T:Slim] 1 each MC AD 05/31/17 [History] 3 Allergy/AdvReac Type Severity Reaction Status Date / Time levofloxacin [From Levaquin] Allergy Difficulty Verified 05/31/17 14:03 Breathing ofloxacin Allergy Rash Verified 05/31/17 14:03 All Systems PM: A 10-system review of systems was performed and is negative for pertinent findings except as documented above in the HPI. Review of systems: Pleuritic chest pain from coughing, other systems out of the 10 reviewed were negative - Constitutional Vitals: Temp Pulse Resp BP Pulse Ox 98.5 F 81 16 192/80 94 05/31/17 17:12 05/31/17 17:12 05/31/17 17:12 05/31/17 17:12 05/31/17 17:12 General appearance: Present: A&O X 3 - Head Head exam: Present: atraumatic, normocephalic - Eye Eye exam: Present: PERRL, conjuntiva pink, sclera anicteric Pupils: Present: PERRL - Neck Neck exam general surgery: Present: supple, trachea midline. Absent: lymphadenopathy - Respiratory Respiratory exam: Present: CTAB, rales (Diffuse crackles). Absent: accessory muscle use, rhonchi, wheezes Additional comments: Her chest port left upper chest dialysis catheter - Cardiovascular Cardiovascular exam: Present: RRR, +S1, +S2. Absent: diastolic murmur, gallop, rubs, systolic murmur - GI/Abdominal GI/Abdominal exam: Present: normal bowel sounds, soft, no peritoneal signs. Absent: distended, tenderness - Extremities Exam Extremities exam: Present: pedal edema (+2 pitting edema in both lower extremities), warm, radial pulses palpable and symmetrical. Absent: calf tenderness, cyanotic - Neurological Exam Neurological exam: Present: CN II-XII intact, oriented X3, no focal deficits. Absent: pronater drift, facial droop, speech deficit - Skin Skin exam: Present: dry, intact Internal Med - H&P Results - Labs CBC & Chem 7: 05/31/17 14:29 05/31/17 14:29
[2017-05-31] MEDS: *HR* OxyCODONE Immed Rel 5 MG TABLET PO PRN (17:57)
[2017-05-31] MEDS: hydrALAZINE 25 MG TABLET PO SCH ×2 (17:57→21:29)
[2017-05-31] MEDS: *HR* Heparin 5,000 UNIT/ML VIAL SQ SCH (17:57)
[2017-05-31] MEDS: cefTRIAXone 1,000 MG in Water for inj. (sterile) 20 ML 10 ML IVP SCH (17:57)
[2017-05-31] MEDS: Furosemide 40 MG/4 ML VIAL IVP SCH (18:41)
[2017-05-31 19:39] LABS: Adenovirus Not Detected (Not Detect); Bordetella Pertussis Not Detected (Not Detect); Chlamydophila pneumoniae Not Detected (Not Detect); Coronavirus 229E Not Detected (Not Detect); Coronavirus HKU1 Not Detected (Not Detect); Coronavirus NL63 Not Detected (Not Detect); Coronavirus OC43 Not Detected (Not Detect); Human Metapneumovirus Not Detected (Not Detect); Human Rhinovirus/Enterovirus Not Detected (Not Detect); Influenza A Subtype 2009 H1 Not Detected (Not Detect); Influenza A Untypeable Not Detected (Not Detect); Influenza B Not Detected (Not Detect); Mycoplasma pneumoniae Not Detected (Not Detect); Parainfluenza Virus 1 Not Detected (Not Detect); Parainfluenza Virus 2 Not Detected (Not Detect); Parainfluenza Virus 3 Not Detected (Not Detect); Parainfluenza Virus 4 Not Detected (Not Detect); Respiratory Syncytial Virus Not Detected (Not Detect)
[2017-05-31] MEDS: Ondansetron 4 MG/2 ML VIAL IVP PRN (21:47)
[2017-06-01] MEDS: *HR* OxyCODONE Immed Rel 5 MG TABLET PO PRN ×4 (00:09→20:13)
[2017-06-01 04:38] LABS: Red Cell Distribution Width 14.6 % (11.5-14.5)
[2017-06-01 04:40] LABS: Hemoglobin 6.6 g/dL (11.5-15.4); Immature Platelets 4.1 % (1.1-6.1); Mean Corpuscular Volume 103.1 fL (83.0-100.0); Mean Platelet Volume 11.1 fL (9.4-12.4); Red Blood Count 1.94 M/mcL (3.82-4.97)
[2017-06-01 04:56] LABS: % Iron Saturation 40 % (15-50); Iron 85 mcg/dL (50-170); Transferrin 150 mg/dL (203-362)
[2017-06-01 04:57] LABS: Calcium 7.3 mg/dL (8.6-10.3); Potassium 3.7 mEq/L (3.5-5.1)
[2017-06-01 05:08] LABS: Ferritin 578 ng/ml (10-120)
[2017-06-01 05:18] LABS: Folate 8.9 ng/mL (3.0-16.0)
[2017-06-01] MEDS: *HR* Heparin 5,000 UNIT/ML VIAL SQ SCH ×2 (06:25→17:34)
[2017-06-01] MEDS: Ondansetron 4 MG/2 ML VIAL IVP PRN ×2 (06:33→20:55)
[2017-06-01] MEDS ORDERED: 0.9 % Sodium Chloride 250 ML IVC PRN (08:45)
[2017-06-01] MEDS ORDERED: 0.9 % Sodium Chloride 1,000 ML PRIME SCH (08:45)
[2017-06-01] MEDS: Calcium Acetate 667 MG CAPSULE PO SCH ×3 (09:15→17:31)
[2017-06-01] MEDS: *HR* HYDROcodone/Acet 5/325 mg TABLET PO PRN (09:25)
[2017-06-01] MEDS ORDERED: 0.9 % Sodium Chloride 2,000 ML ONE (10:13)
--- NOTE | 2017-06-01 11:54 | Nephrology Consult Note ---
Date of Encounter: 06/01/17 Time of Encounter: 11:40 Assessment and Plan (1) ESRD (end stage renal disease) on dialysis Current Visit: No Status: Chronic Will continue HD today with UF goal of 2-3kg as tolerated. Will weigh afterwards to establish a new estimated dry weight Strict I/Os advised Renal diet advised Fluid restriction advised (2) Anemia Current Visit: No Status: Chronic Will transfuse 2units pRBCs with HD today Iron levels WNL, folate WNL but vitamin B12 low, will replete Will dose with EPO as well Stool guaiac ordered and awaiting results Qualifiers: Anemia type: due to chronic kidney disease Chronic kidney disease stage: on chronic dialysis Qualified Code(s): N18.6 - End stage renal disease; D63.1 - Anemia in chronic kidney disease; D63.1 - Anemia in chronic kidney disease; Z99.2 - Dependence on renal dialysis; Z99.2 - Dependence on renal dialysis; Z99.2 - Dependence on renal dialysis; Z99.2 - Dependence on renal dialysis (3) Acute bronchitis Current Visit: Yes Status: Acute Continue antibiotics per primary team Qualifiers: Bronchitis organism: unspecified organism Qualified Code(s): J20.9 - Acute bronchitis, unspecified (4) Diastolic CHF, acute on chronic Current Visit: Yes Status: Acute Stirc I/Os Fluid restriction UF today s/p lasix yesterday 80mg iv and 60mg bid afterwards History of Present Illness - Reason for Consult Consult date: 06/01/17 end stage renal disease - History of Present Illness 42 yo female with PMH of type 1 DM on inulin pump, HTN and ESRD on HHD last treatment on admitted yesterday with progressive SOB. She reports some sick contacts with associated symptom of nonproducutive cough. Hgb noted low at 7.5 which is lower than normal for her despite weekly venofer and thrice weekly EPO. Pt seen and examined on HD today feeling "bad" overall and weak. She denies any bleeding recently. She has been dialyzing to her goal dry weight consistently. CXR shows small pleural effusions and mild congestion with BNP of 1482. She also reports some LE edema lately along with high BP readings Past Med Surg Social Fam HX - Past Medical History Medical history: CHF, CVA, diabetes, dialysis, GERD, hypertension, kidney stones , renal disease, thyroid disease, other Psychiatric history: anxiety, depression - Past Surgical History Surgical History: appendectomy, cholecystectomy, hysterectomy, other, bariatric surgery - Social History Smoking Status: Never smoker Smokeless Tobacco Status: No Alcohol use: none Drug use: none - Family History Mother Hx Family Neurologic Disorders: Yes (fibromyglia) Father Hx Family Cardiac Disorders: Yes (stents, [place], cath, HTN, DVT) Hx Family Endocrine Disorder: Yes (diabetes) Hx Family Neurologic Disorders: Yes (stroke) Medications and Allergies Calcium Acetate [Phos-LO] 667 mg PO AD 12/07/16 [History] Levothyroxine Sodium [Levoxyl] 100 mcg PO QAM 12/07/16 [History] Cyanocobalamin (B-12) [Vitamin B12] 1,000 mcg PO DAILY #30 tablet 02/21/17 [Rx] Calcitriol 0.5 mcg PO DAILY 05/31/17 [History] Calcium Acetate [Phos-LO] 1,334 mg PO TIDWM 05/31/17 [History] Carvedilol 12.5 mg PO BID 05/31/17 [History] Folic Acid 1 mg PO DAILY 05/31/17 [History] Hydralazine HCl 50 mg PO TID 05/31/17 [History] Lipase/Protease/Amylase [Creon Dr 24,000 Units Capsule] 2 each PO AD 05/31/17 [ History] Lipase/Protease/Amylase [Creon Dr 24,000 Units Capsule] 3 each PO TIDWM [History] Ondansetron HCl [Zofran] 4 mg PO Q12H 05/31/17 [History] Rifaximin [Xifaxan] 550 mg PO AD 05/31/17 [History] Sertraline [Zoloft] 50 mg PO DAILY 05/31/17 [History] Subcutaneous Insulin Pump [T:Slim] 1 each MC AD 05/31/17 [History] 3 Allergy/AdvReac Type Severity Reaction Status Date / Time levofloxacin [From Levaquin] Allergy Difficulty Verified 05/31/17 14:03 Breathing ofloxacin Allergy Rash Verified 05/31/17 14:03 Review of Systems All Systems: reviewed and no additional remarkable complaints except as stated ( 10 systems reviewed) Exam - Vital Signs Vital signs: Initial Vital Signs Temp Pulse Resp BP Pulse Ox 98.7 F 78 20 184/85 99 05/31/17 14:03 05/31/17 14:03 05/31/17 14:03 05/31/17 14:03 05/31/17 14:03 Vital Signs - Last 8 Hours Temp Pulse Resp BP Pulse Ox 06/01/17 11:40 98.2 F 78 18 198/94 06/01/17 11:25 98.3 F 74 18 198/100 94 06/01/17 08:27 98.3 F 70 18 158/78 94 Intake and Output 05/31/17 06/01/17 06/01/17 23:59 07:59 15:59 Intake Total 0 / 0 710 / 710 Output Total 700 / 700 0 / 0 Balance -700 / -700 710 / 710 Intake: Oral 0 / 0 360 / 360 Blood Product 350 / 350 Rbcs Leuko Poor As-1 Unit 350 / 350 [id number] Output: Urine 700 / 700 0 / 0 Other: Meal turkey sand. with mustard Breakfast Percent of Meal Consumed 90% 0% Weight 79.832 kg 77.4 kg Blood Glucose* 167 118 Patient Weight 06/01/17 23:59 Weight 77.4 kg - General Appearance General appearance: well-developed, well-nourished EENT: ATNC, mucous membranes moist Neck: no JVD, supple Additional Comments: good areation ant bilat Cardiology: edema (LE bilat), normal S1, normal S2 - Dialysis Access Dialysis Vascular Access: Venous Catheter (permcath) Gastrointestinal: no tenderness, no guarding Integumentary: warm and dry Neurologic: no focal deficit Musculoskeletal: no deformities Psychiatric: mood/affect appropriate, cooperative Results - Lab Results 06/01/17 04:00 06/01/17 04:00 Most recent lab results Calcium 7.3 mg/dL (8.6-10.3) L 06/01/17 04:00 Consult Discharge Plan - Plan Referrals: Marko Hylton Jr, MD [Primary Care Provider] -
[2017-06-01] MEDS ORDERED: Cyanocobalamin (B-12) 1,000 MCG/ML VIAL IM ONE (12:04)
--- NOTE | 2017-06-01 12:36 | Internal Med Progress Note ---
<Jimi Walls - Last Filed: 06/01/17 17:23> Date of Encounter: 06/01/17 Time of Encounter: 12:34 - Assessment and plan (1) Fluid overload Current Visit: Yes Status: Acute Assessment and plan: Hx of Diastolic CHF Strict I/O's, Lasix 40mg BID per nephrology Patient is undergoing dialysis today. Will obtain a new dry weight Plan: - Obtain new dry weight s/p dialysis today - Echo ordered Qualifiers: Hypervolemia type: unspecified Qualified Code(s): E87.70 - Fluid overload, unspecified (2) Acute bronchitis Current Visit: Yes Status: Acute Assessment and plan: Hx cough and congestion with UTE - Rocephin Day#2 Qualifiers: Bronchitis organism: unspecified organism Qualified Code(s): J20.9 - Acute bronchitis, unspecified (3) ESRD (end stage renal disease) on dialysis Current Visit: No Status: Chronic Assessment and plan: Patient performs dialysis at home. Nephrology states patient is compliant. - Patient states she lost weight, dry weight may be incorrectly high. (4) Anemia Current Visit: No Status: Chronic Assessment and plan: Hgb appears to be chronically low in range of 7-9 since 2016. Iron panel performed Pancytopenia appears chronic Patient takes Folic Acid 1mg and B-12 1000mcg daily B12 today was low at 155 Plan: - Replace B12 - Nephrology is aware of pancytopenia Qualifiers: Anemia type: due to chronic kidney disease Chronic kidney disease stage: on chronic dialysis Qualified Code(s): N18.6 - End stage renal disease; D63.1 - Anemia in chronic kidney disease; D63.1 - Anemia in chronic kidney disease; Z99.2 - Dependence on renal dialysis; Z99.2 - Dependence on renal dialysis; Z99.2 - Dependence on renal dialysis; Z99.2 - Dependence on renal dialysis (5) Vitamin B12 deficiency Current Visit: No Status: Chronic Assessment and plan: 155 today. Will replace (6) Pancytopenia Current Visit: No Status: Chronic Assessment and plan: See note above (7) Diabetes type I Current Visit: No Status: Chronic Assessment and plan: Continue insulin pump Qualifiers: Diabetes mellitus complication status: with kidney complications Diabetes mellitus complication detail: with chronic kidney disease Chronic kidney disease stage: on chronic dialysis Qualified Code(s): E10.22 - Type 1 diabetes mellitus with diabetic chronic kidney disease; N18.6 - End stage renal disease; N18.6 - End stage renal disease; N18.6 - End stage renal disease; N18.6 - End stage renal disease; Z99.2 - Dependence on renal dialysis; Z99.2 - Dependence on renal dialysis; Z99.2 - Dependence on renal dialysis; Z99.2 - Dependence on renal dialysis (8) DVT prophylaxis Current Visit: No Status: Acute Assessment and plan: Heparin 5000 unit Q12H - Subjective Interval history: Patient is a 42-year-old female with a past medical history of end-stage renal disease on hemodialysis secondary to ATN, type 1 diabetes was admitted from the emergency department for volume overload, pancytopenia, and ESRD. The patient was reporting shortness of breath for the last 5 days states that her last dialysis treatment was which she does at home. States she is currently equal to her dry weight. States that she has been on dialysis since July 2017 and sees nephrology here. Dr. Basilia appiah recommend a 80 mg dose of Lasix on admission nephrology is consulted. Pancytopenia appears chronic. Patient is currently undergoing dialysis at this time. She admits to shortness of breath and a recent cough with congestion. She states that her dry weight may be lower than the current number that she uses she believes that she has lost weight and thus she may be volume overload. Plan with nephrology is to obtain a new dry weight once patient has undergone dialysis - Constitutional Vitals: Temp Pulse Resp BP Pulse Ox 97.8 F 75 18 200/104 94 06/01/17 12:26 06/01/17 12:26 06/01/17 12:26 06/01/17 12:26 06/01/17 11:25 General appearance: Present: A&O X 3, pleasant, no acute distress, answers questions appropriately - Head Head exam: Present: atraumatic, normal inspection, normocephalic - Eye Eye exam: Present: normal appearance, PERRL - Neck Neck exam general surgery: Present: normal inspection - Respiratory Respiratory exam: Present: CTAB. Absent: rales, respiratory distress, rhonchi, stridor, wheezes - Cardiovascular Cardiovascular exam: Present: RRR, +S1, +S2 - GI/Abdominal GI/Abdominal exam: Present: normal bowel sounds, soft, no peritoneal signs. Absent: tenderness - Extremities Exam Extremities exam: Present: normal inspection, warm. Absent: pedal edema - Back Exam Back exam: Present: normal inspection - Neurological Exam Neurological exam: Present: alert, oriented X3, no focal deficits - Psychiatric Psychiatric exam: Present: normal affect, normal mood - Skin Skin exam: Present: intact, normal color, warm Internal Medicine: Result - Labs CBC & Chem 7: 06/01/17 04:00 06/01/17 04:00 Labs: Short CBC 06/01/17 Range/Units 04:00 WBC 2.4 L (4.3-11.1) K/mcL Hgb 6.6 L (11.5-15.4) g/dL Hct 20.0 L (35.3-44.9) % Plt Count 78 L (140-400) K/mcL [facility] 06/01/17 04:00 Sodium 136 Potassium 3.7 Chloride 103 Carbon Dioxide 23 BUN 45 H Creatinine 3.59 H Glucose 166 H Calcium 7.3 L Consult Discharge Plan - Plan Referrals: Marko Hylton Jr, MD [Primary Care Provider] - <Fidel Pride - Last Filed: 06/01/17 17:33> Date of Encounter: 06/01/17 - Constitutional Vitals: Temp Pulse Resp BP Pulse Ox 98.7 F 82 14 139/72 93 06/01/17 16:00 06/01/17 16:00 06/01/17 16:00 06/01/17 16:00 06/01/17 16:00 Internal Medicine: Result - Labs CBC & Chem 7: 06/01/17 04:00 06/01/17 04:00 Labs: Short CBC 06/01/17 Range/Units 04:00 WBC 2.4 L (4.3-11.1) K/mcL Hgb 6.6 L (11.5-15.4) g/dL Hct 20.0 L (35.3-44.9) % Plt Count 78 L (140-400) K/mcL [facility] 06/01/17 04:00 Sodium 136 Potassium 3.7 Chloride 103 Carbon Dioxide 23 BUN 45 H Creatinine 3.59 H Glucose 166 H Calcium 7.3 L - Impressions Impressions Echocardiogram 06/01/17 12:55 Impressions: LVEF 55%. Mild concentric left ventricular hypertrophy. Moderate left ventricular diastolic dysfunction. Normal right ventricular structure and function. Mild mitral regurgitation. No pulmonary hypertension. There is a small pericardial effusion present. There is no echocardiographic evidence of tamponade. A pleural effusion is present. Left Ventricular Wall Motion: Rest Echo Findings All wall segments showed normal motion. Findings: Study Quality * Technically adequate exam. ECG Findings * Normal sinus rhythm. Left Ventricle * LVEF 55%. * Mild concentric left ventricular hypertrophy. * Moderate left ventricular diastolic dysfunction. Right Ventricle * Normal right ventricular structure and function. Left Atrium * Severely dilated left atrium. Right Atrium * Normal right atrial size. Mitral Valve * Normal mitral valve structure. * No mitral stenosis. * Mild mitral annular calcification * Mild mitral regurgitation. Aortic Valve * No aortic regurgitation. * Trileaflet aortic valve. * No aortic stenosis. Tricuspid Valve * Normal tricuspid valve structure. * Trace tricuspid regurgitation. * Estimated RA pressure is 3 mmHg. * Estimated RVSP is 29 mmHg. * No pulmonary hypertension. Pulmonic Valve * No pulmonic stenosis. * Pulmonic valve is not well visualized. * Trace pulmonic regurgitation. Pulmonary Artery * Pulmonary artery not well visualized. Aorta * Normally sized aortic root. Pericardium * There is a small pericardial effusion present. * There is no echocardiographic evidence of tamponade. Interatrial Septum * No evidence of PFO by color Doppler. Pleural Effusion * A pleural effusion is present. IVC * Normal IVC dimensions and inspiratory collapse. - Attending Attestation I examined this patient and my medical decision-making was reviewed with the Resident Physician. I agree with the documented findings, disposition and treatment plan as described except to the extent set forth below. Volume overload is consistent with her story of Orthopnea.. She dose have S3 on exam; Await Echo. Pancytopenia sec. to B12 def.. will give dose today. Have talked with Nephrol.
[2017-06-01] MEDS: hydrALAZINE 25 MG TABLET PO SCH ×3 (14:09→20:54)
[2017-06-01] MEDS: Furosemide 40 MG/4 ML VIAL IVP SCH ×2 (14:10→17:30)
[2017-06-01] MEDS: Folic Acid 1 MG TABLET PO SCH (15:32)
[2017-06-01] MEDS: cefTRIAXone 1,000 MG in Water for inj. (sterile) 20 ML 10 ML IVP SCH (15:33)
[2017-06-01 18:34] LABS: Hepatitis B Surface Antigen Nonreactive (Nonreactive)
[2017-06-02] MEDS: *HR* Heparin 5,000 UNIT/ML VIAL SQ SCH ×2 (05:36→18:33)
[2017-06-02 08:14] LABS: Calcium 8.1 mg/dL (8.6-10.3); Potassium 3.7 mEq/L (3.5-5.1)
[2017-06-02 08:33] LABS: Hematocrit 25.9 % (35.3-44.9)
[2017-06-02 08:43] LABS: Hemoglobin 8.6 g/dL (11.5-15.4)
[2017-06-02] MEDS: Furosemide 40 MG/4 ML VIAL IVP SCH ×2 (09:02→16:03)
[2017-06-02] MEDS: Folic Acid 1 MG TABLET PO SCH (09:02)
[2017-06-02] MEDS: Calcium Acetate 667 MG CAPSULE PO SCH ×3 (09:02→16:01)
[2017-06-02] MEDS: hydrALAZINE 25 MG TABLET PO SCH ×3 (09:02→21:49)
[2017-06-02] MEDS: cefTRIAXone 1,000 MG in Water for inj. (sterile) 20 ML 10 ML IVP SCH (09:03)
[2017-06-02] MEDS: *HR* OxyCODONE Immed Rel 5 MG TABLET PO PRN ×3 (09:07→22:07)
[2017-06-02] MEDS: Ondansetron 4 MG/2 ML VIAL IVP PRN ×2 (09:08→22:08)
[2017-06-02] MEDS ORDERED: Benzonatate 100 MG CAPSULE PO ONE (10:54)
[2017-06-02] MEDS: Cyanocobalamin (B-12) 1,000 MCG TABLET PO SCH (11:14)
--- NOTE | 2017-06-02 11:25 | Nephrology Progress Note ---
Date of Encounter: 06/02/17 Time of Encounter: 12:00 - Assessment and Plan (1) ESRD (end stage renal disease) on dialysis Status: Chronic will plan another HD tomorrow with aggressive UF again Lytes stable and WNL fluid restriction advised (2) Anemia Status: Chronic Hgb improved to 8.6 from 6.6 after transfusion 2unit pRBCs, will monitor Will check iron studies, folate and vitamin B12 Will use EPO as needed Qualifiers: Anemia type: due to chronic kidney disease Chronic kidney disease stage: on chronic dialysis Qualified Code(s): N18.6 - End stage renal disease; D63.1 - Anemia in chronic kidney disease; D63.1 - Anemia in chronic kidney disease; Z99.2 - Dependence on renal dialysis; Z99.2 - Dependence on renal dialysis; Z99.2 - Dependence on renal dialysis; Z99.2 - Dependence on renal dialysis (3) Acute bronchitis Status: Acute Qualifiers: Bronchitis organism: unspecified organism Qualified Code(s): J20.9 - Acute bronchitis, unspecified (4) Diastolic CHF, acute on chronic Status: Acute Subjective Interval history: Pt seen and examined feels a little better after HD yesterday with UF of 4kg and transfusion pRBCs Objective - Vital Signs Vital signs: Vital Signs Temp Pulse Resp BP Pulse Ox 06/02/17 10:59 98.5 F 79 14 151/72 92 06/02/17 06:51 98.0 F 81 13 152/74 92 06/02/17 04:06 98.2 F 82 18 177/81 94 06/01/17 23:50 98.4 F 81 18 162/79 91 06/01/17 20:24 98.4 F 79 18 141/75 96 06/01/17 16:00 98.7 F 82 14 139/72 93 06/01/17 14:22 97.9 F 18 203/99 06/01/17 14:00 191/89 06/01/17 13:45 198/95 06/01/17 13:30 204/97 06/01/17 13:20 98.4 F 76 18 203/90 06/01/17 13:15 207/86 06/01/17 13:00 200/85 06/01/17 12:45 98.0 F 70 18 200/91 06/01/17 12:30 97.9 F 76 18 203/90 06/01/17 12:26 97.8 F 75 18 200/104 06/01/17 12:25 97.8 F 74 18 06/01/17 12:15 198/75 06/01/17 12:00 193/79 06/01/17 11:45 200/96 06/01/17 11:40 98.2 F 78 18 198/94 06/01/17 11:30 200/97 06/01/17 11:25 98.3 F 74 18 198/100 94 06/01/17 11:15 197/99 06/01/17 11:00 98.4 F 18 188/96 Intake and Output 06/01/17 06/02/17 06/02/17 22:59 07:59 15:59 Intake Total 120 / 120 Output Total 0 / 0 Balance 120 / 120 Intake: IV Fluids Rocephin 1,000 MG In Water for inj. (sterile) 10 ML @ 300 mls/ hr IVP DAILY KATIE Rx#:[id number] Oral 120 / 120 Output: Urine 0 / 0 Other: Meal Percent of Meal Consumed Weight Blood Glucose* 132 Patient Weight 06/03/17 00:59 Weight 76.204 kg - General Appearance General appearance: Present: well-developed, well-nourished EENT: Present: ATNC, mucous membranes moist Neck: Present: no JVD, supple Additional Comments: improved areation ant bilat Cardiology: Present: edema, normal S1, normal S2 Dialysis Vascular Access: Venous Catheter Gastrointestinal: Present: no tenderness, no guarding Integumentary: Present: warm and dry Neurologic: Present: no focal deficit Musculoskeletal: Present: no deformities Psychiatric: Present: mood/affect appropriate - Lab 06/06/17 05:51 06/06/17 05:51 Most recent lab results Calcium 8.1 mg/dL (8.6-10.3) L 06/02/17 05:40 Consult Discharge Plan - Plan Instructions: Heart Failure (DC), Anemia (GEN), Pneumonia (DC) Referrals: Marko Hylton Jr, MD [Primary Care Provider] - 06/13/17 1:00 pm (BEV. BAKARI SOARES)
[2017-06-02] MEDS: *HR* HYDROcodone/Acet 5/325 mg TABLET PO PRN (12:23)
--- NOTE | 2017-06-02 14:04 | Internal Med Progress Note ---
<Jimi aWlls - Last Filed: 06/02/17 15:06> Date of Encounter: 06/02/17 Time of Encounter: 14:02 - Assessment and plan (1) Acute bronchitis Current Visit: Yes Status: Acute Assessment and plan: Hx cough and congestion with UTE - Rocephin Day#3 Plan: - Add azithromycin - Chest x-ray done today shows possible left lower lobe atelectasis versus pneumonia - Ordered influenza rapid test - Tessalon Perlsamara for coughing Qualifiers: Bronchitis organism: unspecified organism Qualified Code(s): J20.9 - Acute bronchitis, unspecified (2) Fluid overload Current Visit: Yes Status: Acute Assessment and plan: Hx of Diastolic CHF Strict I/O's, Lasix 40mg BID per nephrology Patient underwent dialysis yesterday. Echocardiogram shows ejection fraction of 55%. Also shows moderate diastolic dysfunction and small pericardial effusion. Diastolic dysfunction appears worsened when compared to Echo done on 09/07/16. Plan: - Obtain new dry weight s/p dialysis - Consider increasing cor regular adding beta zafar due to Echo findings prior to patient's discharge - Dr. Cui with nephrology is on board Qualifiers: Hypervolemia type: unspecified Qualified Code(s): E87.70 - Fluid overload, unspecified (3) ESRD (end stage renal disease) on dialysis Current Visit: No Status: Chronic Assessment and plan: Patient performs dialysis at home. Nephrology states patient is compliant. - Patient states she lost weight, dry weight may be incorrectly high. (4) Anemia Current Visit: No Status: Chronic Assessment and plan: Hgb appears to be chronically low in range of 7-9 since 2016. Iron panel performed Pancytopenia appears chronic Patient takes Folic Acid 1mg and B-12 1000mcg daily B12 today was low at 155 Plan: - Nephrology is following and making alterations to patient's medication regimen. - Patient received 2 units of packed red blood cells yesterday during dialysis. Qualifiers: Anemia type: due to chronic kidney disease Chronic kidney disease stage: on chronic dialysis Qualified Code(s): N18.6 - End stage renal disease; D63.1 - Anemia in chronic kidney disease; D63.1 - Anemia in chronic kidney disease; Z99.2 - Dependence on renal dialysis; Z99.2 - Dependence on renal dialysis; Z99.2 - Dependence on renal dialysis; Z99.2 - Dependence on renal dialysis (5) Vitamin B12 deficiency Current Visit: No Status: Chronic Assessment and plan: 155 today. Currently being replaced by nephrology. (6) Pancytopenia Current Visit: No Status: Chronic Assessment and plan: See note above (7) Diabetes type I Current Visit: No Status: Chronic Assessment and plan: Continue insulin pump Qualifiers: Diabetes mellitus complication status: with kidney complications Diabetes mellitus complication detail: with chronic kidney disease Chronic kidney disease stage: on chronic dialysis Qualified Code(s): E10.22 - Type 1 diabetes mellitus with diabetic chronic kidney disease; N18.6 - End stage renal disease; N18.6 - End stage renal disease; N18.6 - End stage renal disease; N18.6 - End stage renal disease; Z99.2 - Dependence on renal dialysis; Z99.2 - Dependence on renal dialysis; Z99.2 - Dependence on renal dialysis; Z99.2 - Dependence on renal dialysis (8) DVT prophylaxis Current Visit: No Status: Acute Assessment and plan: Heparin 5000 unit Q12H - Subjective Interval history: Patient is a 42-year-old female with a past medical history of end-stage renal disease on hemodialysis secondary to ATN, type 1 diabetes was admitted from the emergency department for volume overload, pancytopenia, and ESRD. The patient was reporting shortness of breath for the last 5 days states that her last dialysis treatment was which she does at home. States she is currently equal to her dry weight. States that she has been on dialysis since July 2017 and sees nephrology here. Dr. Basilia appiah recommend a 80 mg dose of Lasix on admission nephrology is consulted. Pancytopenia appears chronic. Patient is currently undergoing dialysis at this time. She admits to shortness of breath and a recent cough with congestion. She states that her dry weight may be lower than the current number that she uses she believes that she has lost weight and thus she may be volume overload. Plan with nephrology is to obtain a new dry weight once patient has undergone dialysis. Today the patient states she is feeling weak and she had one episode of nausea and vomiting. Continues to complain of cough and congestion. Plan is to order a chest x-ray and flu swab of the patient. We will also escalate antibiotics. - Constitutional Vitals: Temp Pulse Resp BP Pulse Ox 98.5 F 79 14 151/72 92 03/11/18 10:59 06/02/17 10:59 06/02/17 10:59 06/02/17 10:59 06/02/17 10:59 General appearance: Present: A&O X 3, pleasant, no acute distress, answers questions appropriately Exam: Patient resting in bed comfortably she does not appear to be in any acute distress at this time. - Head Head exam: Present: atraumatic, normal inspection, normocephalic - Eye Eye exam: Present: normal appearance, PERRL - Neck Neck exam general surgery: Present: normal inspection - Respiratory Respiratory exam: Present: rales (Left lower base). Absent: respiratory distress - Cardiovascular Cardiovascular exam: Present: RRR, +S1, +S2 - GI/Abdominal GI/Abdominal exam: Present: soft, no peritoneal signs. Absent: tenderness - Extremities Exam Extremities exam: Present: normal inspection, warm. Absent: pedal edema, tenderness - Back Exam Back exam: Present: normal inspection - Neurological Exam Neurological exam: Present: alert, oriented X3, no focal deficits - Psychiatric Psychiatric exam: Present: normal affect, normal mood - Skin Skin exam: Present: intact, normal color, warm Internal Medicine: Result - Labs CBC & Chem 7: 06/02/17 05:40 06/02/17 05:40 - Impressions Impressions Chest X-Ray 06/02/17 12:12 IMPRESSION: Increased perihilar markings questioning interstitial edema with some left basilar atelectasis. D/ / 06/02/2017 12:48:50 Arsalan Henning MD / [facility] Interpreting Provider: Arsalan Henning MD Consult Discharge Plan - Plan Referrals: Marko Hylton Jr, MD [Primary Care Provider] - <Fidel Pride - Last Filed: 06/02/17 18:40> Date of Encounter: 06/02/17 - Constitutional Vitals: Temp Pulse Resp BP Pulse Ox 98.5 F 79 14 151/72 92 06/02/17 10:59 06/02/17 10:59 06/02/17 10:59 06/02/17 10:59 06/02/17 10:59 Internal Medicine: Result - Labs CBC & Chem 7: 06/02/17 05:40 06/02/17 05:40 - Impressions Impressions Chest X-Ray 06/02/17 12:12 IMPRESSION: Increased perihilar markings questioning interstitial edema with some left basilar atelectasis. D/ / 06/02/2017 12:48:50 Arsalan Henning MD / [facility] Interpreting Provider: Arsalan Henning MD - Attending Attestation I examined this patient and my medical decision-making was reviewed with the Resident Physician. I agree with the documented findings, disposition and treatment plan as described except to the extent set forth below.
[2017-06-02] MEDS: Azithromycin 250 MG TABLET PO SCH (16:02)
[2017-06-02] MEDS: Benzonatate 100 MG CAPSULE PO PRN (22:08)
[2017-06-03] MEDS: *HR* Heparin 5,000 UNIT/ML VIAL SQ SCH ×2 (04:28→17:08)
[2017-06-03] MEDS: *HR* OxyCODONE Immed Rel 5 MG TABLET PO PRN ×3 (04:28→18:15)
[2017-06-03] MEDS: Ondansetron 4 MG/2 ML VIAL IVP PRN (04:29)
[2017-06-03] MEDS: Benzonatate 100 MG CAPSULE PO PRN ×2 (04:29→12:19)
[2017-06-03 05:23] LABS: Eosinophils # 0.1 K/mcL (0.0-0.6); Eosinophils % 5.8 %; Hematocrit 26.3 % (35.3-44.9); Hemoglobin 8.9 g/dL (11.5-15.4); Lymphocytes % 35.9 %; Mean Corpuscular HGB Conc 33.8 g/dL (31.6-35.5); Mean Corpuscular Hemoglobin 31.9 pg (28.0-33.3); Mean Corpuscular Volume 94.3 fL (83.0-100.0); Monocytes % 11.7 %; Red Blood Count 2.79 M/mcL (3.82-4.97); Segmented Neutrophils % 45.6 %
[2017-06-03 05:27] LABS: Lymphocytes # 0.8 K/mcL (0.6-4.6); Monocytes # 0.3 K/mcL (0.0-1.3); Platelet Count 80 K/mcL (140-400)
[2017-06-03 05:33] LABS: Calcium 8.7 mg/dL (8.6-10.3); Potassium 3.9 mEq/L (3.5-5.1)
[2017-06-03] MEDS ORDERED: 0.9 % Sodium Chloride 250 ML IVC PRN (08:05)
[2017-06-03] MEDS ORDERED: 0.9 % Sodium Chloride 1,000 ML PRIME SCH (08:15)
[2017-06-03] MEDS: Azithromycin 250 MG TABLET PO SCH (08:16)
[2017-06-03] MEDS: Calcium Acetate 667 MG CAPSULE PO SCH ×3 (08:16→17:08)
[2017-06-03] MEDS: Cyanocobalamin (B-12) 1,000 MCG TABLET PO SCH (08:17)
[2017-06-03] MEDS: Folic Acid 1 MG TABLET PO SCH (08:17)
[2017-06-03] MEDS ORDERED: 0.9 % Sodium Chloride 2,000 ML ONE (08:19)
[2017-06-03] MEDS: cefTRIAXone 1,000 MG in Water for inj. (sterile) 20 ML 10 ML IVP SCH (12:18)
[2017-06-03] MEDS: hydrALAZINE 25 MG TABLET PO SCH ×3 (12:19→21:42)
[2017-06-03] MEDS: Furosemide 40 MG/4 ML VIAL IVP SCH ×2 (12:19→17:09)
[2017-06-03] MEDS ORDERED: Ketorolac 15 MG/ML VIAL IVP ONE (15:17)
[2017-06-03] MEDS ORDERED: Calcium Acetate 667 MG CAPSULE PO SCH (15:30)
[2017-06-03] MEDS ORDERED: (Subcutaneous Insulin Pump [T:Slim] 1 EACH) MC SCH (15:30)
[2017-06-03] MEDS ORDERED: Calcium Acetate 667 MG CAPSULE PO PRN (16:05)
--- NOTE | 2017-06-03 16:54 | Internal Med Progress Note ---
Date of Encounter: 06/03/17 Time of Encounter: 15:10 - Assessment and plan (1) Pneumonia Current Visit: Yes Status: Suspected Assessment and plan: Clinically appears to have pneumonia. CXR with L basilar changes. Still with cough - not productive at this time. Continue abx and supportive care. Mucinex added. Qualifiers: Pneumonia type: due to Pneumococcus Laterality: left Lung location: lower lobe of lung Qualified Code(s): J13 - Pneumonia due to Streptococcus pneumoniae (2) Chest pain Current Visit: Yes Status: Acute Assessment and plan: Has costochondral pain. One dose of Toradol given. Qualifiers: Chest pain type: other chest pain Qualified Code(s): R07.89 - Other chest pain; R07.8 - Other chest pain (3) Diastolic CHF, acute on chronic Current Visit: Yes Status: Acute Assessment and plan: Fluid status stable currently. Continue dialysis and renal management. (4) Pancytopenia Current Visit: Yes Status: Chronic Assessment and plan: Monitoring. (5) Type I diabetes mellitus Current Visit: No Status: Chronic Assessment and plan: Has insulin pump and is managing sugars. Qualifiers: Diabetes mellitus complication status: with kidney complications Diabetes mellitus complication detail: with chronic kidney disease Chronic kidney disease stage: on chronic dialysis Qualified Code(s): E10.22 - Type 1 diabetes mellitus with diabetic chronic kidney disease; N18.6 - End stage renal disease; N18.6 - End stage renal disease; N18.6 - End stage renal disease; N18.6 - End stage renal disease; Z99.2 - Dependence on renal dialysis; Z99.2 - Dependence on renal dialysis; Z99.2 - Dependence on renal dialysis; Z99.2 - Dependence on renal dialysis (6) Vitamin B12 deficiency Current Visit: No Status: Chronic Assessment and plan: Currently being replaced by nephrology. (7) Anemia Current Visit: No Status: Chronic Assessment and plan: Hgb appears to be chronically low in range of 7-9 since 2016. Iron panel performed Pancytopenia appears chronic Patient takes Folic Acid 1mg and B-12 1000mcg daily B12 today was low at 155 Plan: - Nephrology is following and making alterations to patient's medication regimen. - continue to monitor. Qualifiers: Anemia type: due to chronic kidney disease Chronic kidney disease stage: on chronic dialysis Qualified Code(s): N18.6 - End stage renal disease; D63.1 - Anemia in chronic kidney disease; D63.1 - Anemia in chronic kidney disease; Z99.2 - Dependence on renal dialysis; Z99.2 - Dependence on renal dialysis; Z99.2 - Dependence on renal dialysis; Z99.2 - Dependence on renal dialysis (8) Pancreatic insufficiency Current Visit: No Status: Chronic Assessment and plan: Holding Creon at this time as she feels it upsets her stomach more. - Subjective Interval history: Ms Elkins is currently admitted for acute bronchitis and fluid overload. She is chronic dialysis patient. She also has pancytopenia. She remains moderate to high risk due to potential for worsening clinical status. Ms Elkins is feeling very weak and tired. No fever or chills. Still coughing some - nothing coming up. No CP at this time. No GI issues. - Constitutional Vitals: Temp Pulse Resp BP Pulse Ox 98.0 F 79 14 147/74 90 06/03/17 15:20 06/03/17 15:20 06/03/17 15:20 06/03/17 15:20 06/03/17 15:20 General appearance: Present: A&O X 3, pleasant, answers questions appropriately - Head Head exam: Present: normocephalic - Eye Eye exam: Present: conjuntiva pink - ENT ENT exam: Present: mucous membranes dry - Respiratory Respiratory exam: Present: decreased breath sounds, rales. Absent: rhonchi, wheezes Additional comments: Rales in L base. - Cardiovascular Cardiovascular exam: Present: RRR. Absent: tachycardia - GI/Abdominal GI/Abdominal exam: Present: soft. Absent: tenderness - Extremities Exam Extremities exam: Present: warm. Absent: tenderness - Neurological Exam Neurological exam: Present: alert, oriented X3, no focal deficits - Skin Skin exam: Present: dry, warm Internal Medicine: Result - Labs CBC & Chem 7: 06/03/17 04:39 06/03/17 04:39 Labs: Short CBC 06/03/17 Range/Units 04:39 WBC 2.1 L (4.3-11.1) K/mcL Hgb 8.9 L (11.5-15.4) g/dL Hct 26.3 L (35.3-44.9) % Plt Count 80 L (140-400) K/mcL Neutrophils # 1.0 L (1.6-8.9) K/mcL BMP 06/03/17 04:39 Sodium 134 L Potassium 3.9 Chloride 100 Carbon Dioxide 26 BUN 26 H Creatinine 3.19 H Glucose 128 H Calcium 8.7 Consult Discharge Plan - Plan Referrals: Marko Hylton Jr, MD [Primary Care Provider] -
--- NOTE | 2017-06-03 18:37 | Electrocardiograph Report ---
[place] [id number] Test Date: 2017-05-31 Pat Name: Iman Elkins Department: 104 Room: 2A71 Gender: F Mat Puncher: : 1975 Requested By: Bryant Walsh Order Number: [id number] Reading MD: Michael Cao MD Measurements Intervals [place] Rate: 72 P: 13 PA: 150 QRS: 7 QRSD: 83 T: 44 QT: 427 QTc: 450 Interpretive Statements SINUS RHYTHM Electronically Signed On 06-03-2017 18:35:41 EDT by Michael Cao MD
--- NOTE | 2017-06-03 18:41 | Nephrology Progress Note ---
Date of Encounter: 06/03/17 Time of Encounter: 11:00 - Assessment and Plan (1) ESRD (end stage renal disease) on dialysis Status: Chronic Continue HD with UF as tolerated May need extra UF tomorrow if still SOB with fluid to give (2) Anemia Status: Chronic Hgb stable at 8.9 after 2unit pRBCs s/p aranesp and vitamin B12 shot Awaiting stool guaiac Qualifiers: Anemia type: due to chronic kidney disease Chronic kidney disease stage: on chronic dialysis Qualified Code(s): N18.6 - End stage renal disease; D63.1 - Anemia in chronic kidney disease; D63.1 - Anemia in chronic kidney disease; Z99.2 - Dependence on renal dialysis; Z99.2 - Dependence on renal dialysis; Z99.2 - Dependence on renal dialysis; Z99.2 - Dependence on renal dialysis (3) Acute bronchitis Status: Acute Qualifiers: Bronchitis organism: unspecified organism Qualified Code(s): J20.9 - Acute bronchitis, unspecified (4) Diastolic CHF, acute on chronic Status: Acute Subjective Interval history: Pt seen and examined on HD reports feeling little SOB again today. Objective - Vital Signs Vital signs: Vital Signs Temp Pulse Resp BP Pulse Ox 06/03/17 15:20 98.0 F 79 14 147/74 90 06/03/17 12:35 98.9 F 18 174/88 06/03/17 11:40 168/86 06/03/17 11:25 174/84 06/03/17 11:10 166/82 06/03/17 10:55 180/85 06/03/17 10:40 177/74 06/03/17 10:25 189/88 06/03/17 10:10 177/89 06/03/17 09:55 185/88 06/03/17 09:40 180/87 06/03/17 09:25 175/86 06/03/17 09:10 167/84 06/03/17 08:55 169/81 06/03/17 08:40 99.1 F 18 181/92 06/03/17 08:23 92 06/03/17 06:39 98.3 F 78 14 172/81 92 06/03/17 03:34 98.7 F 76 18 168/78 96 06/02/17 23:32 98.3 F 73 18 141/74 93 06/02/17 19:50 98.7 F 77 14 175/79 95 Intake and Output 06/03/17 06/03/17 06/03/17 07:59 15:59 23:59 Intake Total 720 / 720 360 / 360 Output Total 4900 / 4900 Balance -4180 / -4180 360 / 360 Intake: Oral 120 / 120 360 / 360 Intake, Rinseback and Flushes 600 / 600 Output: Urine 300 / 300 Total Dialysis (HD) Output 4600 / 4600 Other: Meal Lunch Dinner Percent of Meal Consumed 10% 15% Stool Size Small Stool Consistency loose # Bowel Movements 1 Weight 75.75 kg 75.75 kg Blood Glucose* 154 159 Hemodialysis Net Fluid Removed 4000 (mL) Patient Weight 06/03/17 23:59 Weight 75.75 kg - General Appearance General appearance: Present: well-developed, well-nourished EENT: Present: ATNC, mucous membranes moist Neck: Present: no JVD, supple Respiratory: Present: wheezing, rales Cardiology: Present: edema, normal S1, normal S2 Dialysis Vascular Access: Venous Catheter Gastrointestinal: Present: no tenderness, no guarding Integumentary: Present: warm and dry Neurologic: Present: no focal deficit Musculoskeletal: Present: no deformities Psychiatric: Present: mood/affect appropriate - Lab 06/06/17 05:51 06/06/17 05:51 Most recent lab results Calcium 8.7 mg/dL (8.6-10.3) 06/03/17 04:39 Consult Discharge Plan - Plan Instructions: Heart Failure (DC), Anemia (GEN), Pneumonia (DC) Referrals: Marko Hylton Jr, MD [Primary Care Provider] - 06/13/17 1:00 pm ([facility]. ABKARI SOARES)
[2017-06-04] MEDS: Ondansetron 4 MG/2 ML VIAL IVP PRN ×2 (00:16→08:13)
[2017-06-04] MEDS: *HR* OxyCODONE Immed Rel 5 MG TABLET PO PRN ×4 (00:16→22:21)
[2017-06-04] MEDS: Benzonatate 100 MG CAPSULE PO PRN ×2 (02:46→13:59)
[2017-06-04] MEDS: *HR* HYDROcodone/Acet 5/325 mg TABLET PO PRN ×2 (02:46→08:20)
[2017-06-04 05:08] LABS: Hemoglobin 8.9 g/dL (11.5-15.4)
[2017-06-04 05:10] LABS: Basophils % 0.5 %; Eosinophils # 0.1 K/mcL (0.0-0.6); Eosinophils % 5.3 %; Hematocrit 26.6 % (35.3-44.9); Lymphocytes # 0.6 K/mcL (0.6-4.6); Lymphocytes % 32.6 %; Mean Corpuscular HGB Conc 33.5 g/dL (31.6-35.5); Mean Corpuscular Hemoglobin 31.9 pg (28.0-33.3); Mean Corpuscular Volume 95.3 fL (83.0-100.0); Mean Platelet Volume 11.4 fL (9.4-12.4); Monocytes # 0.2 K/mcL (0.0-1.3); Monocytes % 11.8 %; Nucleated Red Blood Cells 2.7 /100 WBC (0); Red Blood Count 2.79 M/mcL (3.82-4.97); Red Cell Distribution Width 17.2 % (11.5-14.5); Segmented Neutrophils % 49.8 %
[2017-06-04 05:28] LABS: Calcium 8.8 mg/dL (8.6-10.3)
[2017-06-04 05:29] LABS: Platelet Count 83 K/mcL (140-400)
[2017-06-04] MEDS: *HR* Heparin 5,000 UNIT/ML VIAL SQ SCH ×2 (05:34→18:07)
[2017-06-04 05:58] LABS: Platelet Estimate Decreased (Normal)
[2017-06-04] MEDS: Calcium Acetate 667 MG CAPSULE PO SCH ×3 (08:12→18:07)
[2017-06-04] MEDS: Folic Acid 1 MG TABLET PO SCH ×2 (08:12→12:08)
[2017-06-04] MEDS: Azithromycin 250 MG TABLET PO SCH (08:13)
[2017-06-04] MEDS: Cyanocobalamin (B-12) 1,000 MCG TABLET PO SCH ×2 (08:13→12:09)
[2017-06-04] MEDS ORDERED: 0.9 % Sodium Chloride 1,000 ML ONE (08:48)
[2017-06-04] MEDS ORDERED: 0.9 % Sodium Chloride 250 ML IVC PRN (09:23)
[2017-06-04] MEDS ORDERED: 0.9 % Sodium Chloride 1,000 ML PRIME SCH (09:30)
--- NOTE | 2017-06-04 09:48 | Internal Med Progress Note ---
<JoseyaneliRashad baeza - Last Filed: 06/04/17 14:22> Date of Encounter: 06/04/17 Time of Encounter: 08:20 - Assessment and plan (1) Pneumonia Current Visit: Yes Status: Suspected Assessment and plan: Clinically appears to have pneumonia. CXR with L basilar changes. Patient's cough has improved but still productive with yellow sputum. Currently on day 3 of azithromycin and day 5 of ceftriaxone. Continue antibiotics. Continue Mucinex. Qualifiers: Pneumonia type: due to Pneumococcus Laterality: left Lung location: lower lobe of lung Qualified Code(s): J13 - Pneumonia due to Streptococcus pneumoniae (2) Chest pain Current Visit: Yes Status: Acute Assessment and plan: Denies any chest pain with palpitation. Qualifiers: Chest pain type: other chest pain Qualified Code(s): R07.89 - Other chest pain; R07.8 - Other chest pain (3) Diastolic CHF, acute on chronic Current Visit: Yes Status: Acute Assessment and plan: Balance of -3820 from yesterday. Weight decreased from 75 kg to 71.2 kg. Fluid status stable. Continue dialysis and renal management. (4) Pancytopenia Current Visit: Yes Status: Chronic Assessment and plan: Continue to monitor. (5) Type I diabetes mellitus Current Visit: No Status: Chronic Assessment and plan: Blood sugar level stable at 110. Patient has insulin pump. Qualifiers: Diabetes mellitus complication status: with kidney complications Diabetes mellitus complication detail: with chronic kidney disease Chronic kidney disease stage: on chronic dialysis Qualified Code(s): E10.22 - Type 1 diabetes mellitus with diabetic chronic kidney disease; N18.6 - End stage renal disease; N18.6 - End stage renal disease; N18.6 - End stage renal disease; N18.6 - End stage renal disease; Z99.2 - Dependence on renal dialysis; Z99.2 - Dependence on renal dialysis; Z99.2 - Dependence on renal dialysis; Z99.2 - Dependence on renal dialysis (6) Vitamin B12 deficiency Current Visit: No Status: Chronic Assessment and plan: Being managed by nephrology. (7) Pancreatic insufficiency Current Visit: No Status: Chronic Assessment and plan: Holding Creon at this time. Patient admits her stomach still feels slightly upset. (8) DVT prophylaxis Current Visit: No Status: Acute Assessment and plan: On heparin 5000 units subcutaneously every 12 hours. - Subjective Interval history: When seen today patient said her cough is improved since yesterday although she does still have a productive cough that produces yellow sputum. She denies any fever, but admits to nausea and vomiting. Denies hematemesis. Her shortness of breath has been improving since yesterday. Also admits that her wheezing is improved since yesterday. - Constitutional Vitals: Temp Pulse Resp BP Pulse Ox 98.1 F 71 16 162/74 92 06/04/17 08:49 06/04/17 08:49 06/04/17 08:49 06/04/17 08:49 06/04/17 08:23 General appearance: Present: A&O X 3, pleasant, answers questions appropriately - ENT ENT exam: Present: mucous membranes moist, normal oropharynx - Respiratory Respiratory exam: Present: CTAB. Absent: accessory muscle use, rales, rhonchi, wheezes - Cardiovascular Cardiovascular exam: Present: RRR, +S1, +S2. Absent: diastolic murmur, gallop, rubs, systolic murmur - GI/Abdominal GI/Abdominal exam: Present: normal bowel sounds, soft, tenderness (Mild generalized tenderness.), no peritoneal signs. Absent: distended - Extremities Exam Extremities exam: Present: warm, radial pulses palpable and symmetrical. Absent : calf tenderness, cyanotic, pedal edema Internal Medicine: Result - Labs CBC & Chem 7: 06/04/17 04:30 06/04/17 04:30 Labs: Short CBC 06/04/17 Range/Units 04:30 WBC 1.9 L (4.3-11.1) K/mcL Hgb 8.9 L (11.5-15.4) g/dL Hct 26.6 L (35.3-44.9) % Plt Count 83 L (140-400) K/mcL Neutrophils # 1.0 L (1.6-8.9) K/mcL BMP 06/04/17 04:30 Sodium 136 Potassium 4.0 Chloride 97 L Carbon Dioxide 33 H BUN 13 Creatinine 2.80 H Glucose 110 H Calcium 8.8 Consult Discharge Plan - Plan Referrals: Marko Hylton Jr, MD [Primary Care Provider] - <Neil Cochran - Last Filed: 06/04/17 14:49> Date of Encounter: 06/04/17 - Assessment and plan (1) Pneumonia Current Visit: Yes Status: Suspected Qualifiers: Pneumonia type: due to Pneumococcus Laterality: left Lung location: lower lobe of lung Qualified Code(s): J13 - Pneumonia due to Streptococcus pneumoniae (2) Chest pain Current Visit: Yes Status: Acute Qualifiers: Chest pain type: other chest pain Qualified Code(s): R07.89 - Other chest pain; R07.8 - Other chest pain (3) Diastolic CHF, acute on chronic Current Visit: Yes Status: Acute (4) Pancytopenia Current Visit: Yes Status: Chronic (5) Type I diabetes mellitus Current Visit: No Status: Chronic Qualifiers: Diabetes mellitus complication status: with kidney complications Diabetes mellitus complication detail: with chronic kidney disease Chronic kidney disease stage: on chronic dialysis Qualified Code(s): E10.22 - Type 1 diabetes mellitus with diabetic chronic kidney disease; N18.6 - End stage renal disease; N18.6 - End stage renal disease; N18.6 - End stage renal disease; N18.6 - End stage renal disease; Z99.2 - Dependence on renal dialysis; Z99.2 - Dependence on renal dialysis; Z99.2 - Dependence on renal dialysis; Z99.2 - Dependence on renal dialysis (6) Vitamin B12 deficiency Current Visit: No Status: Chronic (7) Pancreatic insufficiency Current Visit: No Status: Chronic (8) DVT prophylaxis Current Visit: No Status: Acute - Constitutional Vitals: Temp Pulse Resp BP Pulse Ox 98.3 F 76 14 128/71 93 06/04/17 12:30 06/04/17 12:30 06/04/17 12:30 06/04/17 12:30 06/04/17 12:30 Internal Medicine: Result - Labs CBC & Chem 7: 06/04/17 04:30 06/04/17 04:30 Labs: Short CBC 06/04/17 Range/Units 04:30 WBC 1.9 L (4.3-11.1) K/mcL Hgb 8.9 L (11.5-15.4) g/dL Hct 26.6 L (35.3-44.9) % Plt Count 83 L (140-400) K/mcL Neutrophils # 1.0 L (1.6-8.9) K/mcL BMP 06/04/17 04:30 Sodium 136 Potassium 4.0 Chloride 97 L Carbon Dioxide 33 H BUN 13 Creatinine 2.80 H Glucose 110 H Calcium 8.8 - Attending Attestation I have independently seen and examined this patient on 06/04. 42-year-old female with type 1 diabetes mellitus on chronic dialysis for end- stage renal disease, preserved ejection fraction CHF, pancytopenia and malnutrition. She also has chronic anemia and pancreatic insufficiency. She is admitted and being managed for pneumonia. She also has acute on chronic anemia of unknown etiology. So far blood culture, influenza swab, respiratory panel are negative. EKG was normal sinus rhythm and echocardiogram was unremarkable. She was seen at the bedside during hemodialysis. She complains of left right chest wall tenderness, but reports that she is generally feeling better. Chest auscultation is on the anterior and clear to auscultation bilaterally. Left chest wall port noted surrounding clean and dry. She has no pedal edema. Labs and Imaging reviewed : chronic pancytopenia, renal function is at baseline , FOBT negative, Iron studies show adequate iron with elevated ferrition , low Vit B12 and normal folate Continue antibiotics for pneumonia treatment, continue current management Nephrology input appreciated Rest is as in resident physician's documentation
--- NOTE | 2017-06-04 11:09 | Nephrology Progress Note ---
<Kerri Colon - Last Filed: 06/04/17 11:16> Date of Encounter: 06/04/17 Time of Encounter: 11:07 - Assessment and Plan (1) ESRD (end stage renal disease) on dialysis Status: Chronic UF today Plan for HD tomorrow EDW now at 71kg Avoid nephrotoxins if possible (2) Anemia Status: Chronic Hgb 8.9 s/p 2 units PRBC Continue Aranesp Stool guaiac negative Goal hgb 10-11 Qualifiers: Anemia type: due to chronic kidney disease Chronic kidney disease stage: on chronic dialysis Qualified Code(s): N18.6 - End stage renal disease; D63.1 - Anemia in chronic kidney disease; D63.1 - Anemia in chronic kidney disease; Z99.2 - Dependence on renal dialysis; Z99.2 - Dependence on renal dialysis; Z99.2 - Dependence on renal dialysis; Z99.2 - Dependence on renal dialysis (3) Diastolic CHF, acute on chronic Status: Acute per primary team Subjective Principal diagnosis: ESRD on dialysis, anemia Interval history: Patient seen and examined on dialysis. States she is feeling much better Objective - Vital Signs Vital signs: Vital Signs Temp Pulse Resp BP Pulse Ox 06/04/17 10:20 132/70 06/04/17 10:05 123/69 06/04/17 09:50 122/69 06/04/17 09:35 126/69 06/04/17 09:20 131/72 06/04/17 09:05 98.2 F 18 146/73 06/04/17 08:49 98.1 F 71 16 162/74 06/04/17 08:23 92 06/04/17 04:17 98.5 F 75 16 137/71 92 06/04/17 00:50 182/88 06/04/17 00:00 98.6 F 73 17 186/80 93 06/03/17 20:12 98.6 F 81 17 159/76 92 06/03/17 15:20 98.0 F 79 14 147/74 90 06/03/17 12:35 98.9 F 18 174/88 06/03/17 11:40 168/86 06/03/17 11:25 174/84 06/03/17 11:10 166/82 Intake and Output 06/03/17 06/04/17 06/04/17 23:59 07:59 15:59 Intake Total 360 / 360 700 / 700 Output Total 0 / 0 0 / 0 Balance 360 / 360 0 / 0 700 / 700 Intake: Oral 360 / 360 100 / 100 Intake, Rinseback and Flushes 600 / 600 Output: Urine 0 / 0 0 / 0 Other: Meal Dinner Percent of Meal Consumed 15% Stool Size Small Stool Consistency loose # Bowel Movements 1 Weight 71.2 kg 71.2 kg Blood Glucose* 208 128 Hemodialysis Net Fluid Removed 1805 (mL) Patient Weight 06/04/17 23:59 Weight 71.2 kg - General Appearance General appearance: Present: well-developed, well-nourished EENT: Present: ATNC, mucous membranes moist, hearing intact, vision intact Neck: Present: supple Respiratory: Present: clear Cardiology: Present: no edema, normal S1, normal S2 Dialysis Vascular Access: Venous Catheter Gastrointestinal: Present: no tenderness, no guarding Integumentary: Present: warm and dry Neurologic: Present: alert and oriented x3 Psychiatric: Present: mood/affect appropriate, cooperative - Lab 06/04/17 04:30 06/04/17 04:30 Most recent lab results Calcium 8.8 mg/dL (8.6-10.3) 06/04/17 04:30 Consult Discharge Plan - Plan Instructions: Heart Failure (DC), Anemia (GEN), Pneumonia (DC) Referrals: Marko Hylton Jr, MD [Primary Care Provider] - 06/13/17 1:00 pm ([facility]. BAKARI SOARES) <George Waldrop - Last Filed: 06/25/17 01:05> Date of Encounter: 06/04/17 - Assessment and Plan (1) ESRD (end stage renal disease) on dialysis Status: Chronic (2) Anemia Status: Chronic Qualifiers: Anemia type: due to chronic kidney disease Chronic kidney disease stage: on chronic dialysis Qualified Code(s): N18.6 - End stage renal disease; D63.1 - Anemia in chronic kidney disease; D63.1 - Anemia in chronic kidney disease; Z99.2 - Dependence on renal dialysis; Z99.2 - Dependence on renal dialysis; Z99.2 - Dependence on renal dialysis; Z99.2 - Dependence on renal dialysis (3) Acute bronchitis Status: Acute Qualifiers: Bronchitis organism: unspecified organism Qualified Code(s): J20.9 - Acute bronchitis, unspecified (4) Diastolic CHF, acute on chronic Status: Acute Objective - Lab 06/06/17 05:51 06/06/17 05:51 Most recent lab results Calcium 9.3 mg/dL (8.6-10.3) 06/06/17 05:51 - Attending Attestation I examined this patient and my medical decision-making was reviewed with the Resident Physician/PIE [employer] MACHINE. I agree with the documented findings, disposition and treatment plan as described except to the extent set forth below. Pt seen and examined on HD for UF only today. s/p HD yesterday with 4kg UF. Plan to challenge again tomorrow with HD. Lung exam showed improved areation and no wheezes. Continue fluid restriction
[2017-06-04] MEDS: hydrALAZINE 25 MG TABLET PO SCH ×3 (12:12→21:09)
[2017-06-04] MEDS: Furosemide 40 MG/4 ML VIAL IVP SCH ×2 (12:12→18:07)
[2017-06-04] MEDS: cefTRIAXone 1,000 MG in Water for inj. (sterile) 20 ML 10 ML IVP SCH (12:13)
[2017-06-04] MEDS: *HR* Promethazine 25 MG/ML VIAL IVP PRN ×2 (13:58→22:21)
[2017-06-04 18:23] LABS: Immature Reticulocyte % 19.9 % (11.0-38.0); Reticulocyte % 3.2 % (1.6-2.8)
[2017-06-05 03:51] LABS: Basophils % 0.9 %; Hemoglobin 9.4 g/dL (11.5-15.4)
[2017-06-05 03:53] LABS: Eosinophils # 0.1 K/mcL (0.0-0.6); Eosinophils % 6.2 %; Hematocrit 27.6 % (35.3-44.9); Immature Platelets 4.1 % (1.1-6.1); Lymphocytes # 0.8 K/mcL (0.6-4.6); Lymphocytes % 35.6 %; Mean Corpuscular HGB Conc 34.1 g/dL (31.6-35.5); Mean Corpuscular Hemoglobin 32.1 pg (28.0-33.3); Mean Corpuscular Volume 94.2 fL (83.0-100.0); Mean Platelet Volume 10.4 fL (9.4-12.4); Monocytes # 0.3 K/mcL (0.0-1.3); Monocytes % 10.7 %; Red Blood Count 2.93 M/mcL (3.82-4.97)
[2017-06-05 04:00] LABS: Platelet Count 92 K/mcL (140-400)
[2017-06-05 04:01] LABS: Neutrophils # 1.1 K/mcL (1.6-8.9); Segmented Neutrophils % 47.5 %
[2017-06-05 04:53] LABS: Calcium 9.6 mg/dL (8.6-10.3)
[2017-06-05] MEDS: *HR* Heparin 5,000 UNIT/ML VIAL SQ SCH ×2 (06:02→15:56)
[2017-06-05] MEDS ORDERED: *HR* Heparin 10,000 UNIT/10 ML VIAL IV PRN (07:37)
[2017-06-05] MEDS ORDERED: 0.9 % Sodium Chloride 250 ML IVC PRN (07:37)
[2017-06-05] MEDS ORDERED: 0.9 % Sodium Chloride 1,000 ML PRIME SCH (07:45)
[2017-06-05] MEDS: Calcium Acetate 667 MG CAPSULE PO SCH ×3 (07:59→15:56)
[2017-06-05] MEDS: *HR* OxyCODONE Immed Rel 5 MG TABLET PO PRN ×3 (07:59→22:54)
[2017-06-05] MEDS: *HR* Promethazine 25 MG/ML VIAL IVP PRN ×3 (08:00→22:54)
[2017-06-05] MEDS ORDERED: 0.9 % Sodium Chloride 1,000 ML ONE (08:02)
[2017-06-05] MEDS: Benzonatate 100 MG CAPSULE PO PRN ×2 (08:03→15:26)
--- NOTE | 2017-06-05 08:03 | Internal Med Progress Note ---
<Neil Cochran - Last Filed: 06/05/17 16:49> Date of Encounter: 06/05/17 - Assessment and plan (1) Pancytopenia Current Visit: Yes Status: Chronic - Constitutional Vitals: Temp Pulse Resp BP Pulse Ox 98.6 F 79 18 90/54 94 06/05/17 16:35 06/05/17 16:35 06/05/17 16:35 06/05/17 16:35 06/05/17 16:35 Internal Medicine: Result - Labs CBC & Chem 7: 06/05/17 03:20 06/05/17 03:20 Labs: Short CBC 06/05/17 Range/Units 03:20 WBC 2.3 L (4.3-11.1) K/mcL Hgb 9.4 L (11.5-15.4) g/dL Hct 27.6 L (35.3-44.9) % Plt Count 92 L (140-400) K/mcL Neutrophils # 1.1 L (1.6-8.9) K/mcL BMP 06/05/17 03:20 Sodium 135 L Potassium 4.0 Chloride 95 L Carbon Dioxide 31 H BUN 21 H Creatinine 3.90 H Glucose 129 H Calcium 9.6 Consult Discharge Plan - Plan Referrals: Marko Hylton Jr, MD [Primary Care Provider] - - Attending Attestation I examined this patient and my medical decision-making was reviewed with the Resident Physician. I agree with the documented findings, disposition and treatment plan as described except to the extent set forth below. She complained of diarrhea/loose stools today She is definitely improving, howveit slowly Air entry is diminshed on exam but mostly due to poor effort Abdomen is soft and not tender, labs are acceptanle Onc eval noted <Everton Hagan - Last Filed: 06/05/17 17:01> Date of Encounter: 06/05/17 Time of Encounter: 08:15 - Assessment and plan (1) Pneumonia Current Visit: Yes Status: Suspected Assessment and plan: Clinically appears to have pneumonia CXR demonstrated the following: Increased perihilar markings questioning interstitial edema w/ some L basilar atelectasis. -Patient's cough has improved but still productive with yellow sputum -Preliminary blood cultures are negative 2 -Influenza negative -Zithromax 500 mg by mouth daily (Day 4) -Rocephin 1 g IV daily (Day 6) -Continue Mucinex Qualifiers: Pneumonia type: due to Pneumococcus Laterality: left Lung location: lower lobe of lung Qualified Code(s): J13 - Pneumonia due to Streptococcus pneumoniae (2) Anemia Current Visit: Yes Status: Acute Assessment and plan: Hemoglobin today is 9.4; s/p 2 units PRBC Per nephrology: -Continue Aranesp -Stool guaiac negative -Goal hgb 10-11 Qualifiers: Qualified Code(s): D64.9 - Anemia, unspecified (3) Chest pain Current Visit: Yes Status: Acute Assessment and plan: Resolved at this time Qualifiers: Chest pain type: other chest pain Qualified Code(s): R07.89 - Other chest pain; R07.8 - Other chest pain (4) Diastolic CHF, acute on chronic Current Visit: Yes Status: Acute Assessment and plan: Fluid status stable -Continue dialysis and renal management -Total I/O balance: -[id number] -Lasix 60 mg IV twice a day (5) Pancytopenia Current Visit: Yes Status: Chronic Assessment and plan: Continue to monitor (6) Type I diabetes mellitus Current Visit: No Status: Chronic Assessment and plan: Blood sugar level stable at 110 -Patient has insulin pump Qualifiers: Diabetes mellitus complication status: with kidney complications Diabetes mellitus complication detail: with chronic kidney disease Chronic kidney disease stage: on chronic dialysis Qualified Code(s): E10.22 - Type 1 diabetes mellitus with diabetic chronic kidney disease; N18.6 - End stage renal disease; N18.6 - End stage renal disease; N18.6 - End stage renal disease; N18.6 - End stage renal disease; Z99.2 - Dependence on renal dialysis; Z99.2 - Dependence on renal dialysis; Z99.2 - Dependence on renal dialysis; Z99.2 - Dependence on renal dialysis (7) Vitamin B12 deficiency Current Visit: No Status: Chronic Assessment and plan: Being managed by nephrology (8) Pancreatic insufficiency Current Visit: No Status: Chronic Assessment and plan: Holding Creon at this time Patient admits her stomach still feels slightly upset (9) DVT prophylaxis Current Visit: No Status: Acute Assessment and plan: On heparin 5000 units subcutaneously every 12 hours - Subjective Interval history: Patient was seen and examined at bedside. States that she still has some difficulty breathing. Feels better today compared to yesterday. Went for HD today. - Constitutional Vitals: Temp Pulse Resp BP Pulse Ox 98.6 F 73 18 161/76 93 06/05/17 07:50 06/05/17 07:50 06/05/17 07:50 06/05/17 07:50 06/05/17 07:50 General appearance: Present: A&O X 3, pleasant, answers questions appropriately - Head Head exam: Present: atraumatic, normocephalic - Eye Eye exam: Present: PERRL, conjuntiva pink, sclera anicteric Pupils: Present: PERRL - Neck Neck exam general surgery: Present: supple, trachea midline. Absent: lymphadenopathy - Respiratory Respiratory exam: Present: CTAB. Absent: accessory muscle use, rales, rhonchi, wheezes - Cardiovascular Cardiovascular exam: Present: RRR, +S1, +S2. Absent: diastolic murmur, gallop, rubs, systolic murmur - GI/Abdominal GI/Abdominal exam: Present: normal bowel sounds, soft, no peritoneal signs. Absent: distended, tenderness - Extremities Exam Extremities exam: Present: warm, radial pulses palpable and symmetrical. Absent : calf tenderness, cyanotic, pedal edema - Neurological Exam Neurological exam: Present: CN II-XII intact, oriented X3, no focal deficits. Absent: pronater drift, facial droop, speech deficit - Skin Skin exam: Present: dry, intact Internal Medicine: Result - Labs CBC & Chem 7: 06/05/17 03:20 06/05/17 03:20 Labs: Short CBC 06/05/17 Range/Units 03:20 WBC 2.3 L (4.3-11.1) K/mcL Hgb 9.4 L (11.5-15.4) g/dL Hct 27.6 L (35.3-44.9) % Plt Count 92 L (140-400) K/mcL Neutrophils # 1.1 L (1.6-8.9) K/mcL BMP 06/05/17 03:20 Sodium 135 L Potassium 4.0 Chloride 95 L Carbon Dioxide 31 H BUN 21 H Creatinine 3.90 H Glucose 129 H Calcium 9.6
--- NOTE | 2017-06-05 10:20 | Oncology Inp Consult Note ---
<Desiree Carty - Last Filed: 06/05/17 16:24> Date of Encounter: 06/05/17 Time of Encounter: 10:20 Assessment and Plan (1) Pancytopenia Status: Chronic Assessment and plan: As detailed in HPI patient has known pancytopenia has been evident for a number of years with a prior bone marrow biopsy with no malignant findings. B12 level is low at 155, I have stopped oral B12 and ordered B12 IM 1000 g daily 7 days. Following this would recommend B12 IM 1000 g once weekly 4 weeks then resume injections once monthly along with continued monitoring. She appears to be somewhat noncompliant with her B12 injections and cannot recall the last time she has had one. I have also ordered a workup for pernicious anemia including intrinsic factor antibody and parietal cell IgG, these will take a few days to result. Patient voiced frustration regarding multiple comorbidities and her chronic pancytopenia. I discussed with patient that her pancytopenia may be related to her profound B12 deficiency and not we will need to correct her B12 deficiency before performing another bone marrow biopsy if needed. I have also ordered a number of laboratory tests to further assess her pancytopenia which will likely take a few days to result. 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 Green as an outpatient for further monitoring and to assess lab results. Lab work currently pending includes serum copper, ceruloplasmin, haptoglobin, SPEP and immunoglobulins panel. Her iron levels are repleted and she receives venofer weekly. Her LDH and retic count are normal. Her blood smear essentially revealed normal morphology. Please refer to Dr. Doherty's attestation for additional details. - Data of Consult Patient: known to practice within the last 3 years (t) Consult date: 06/05/17 Requesting Physician: Neil Cochran MD Primary Care Provider: Marko Hylton Jr, MD - Consult Narrative Reason for consult: pancytopenia History of present illness: Ms. Elkins is a 42 year old female with hematologic history significant for iron deficiency anemia and B12 deficiency anemia with resultant pancytopenia. She has been known to our practice for a number of years. She reports that 5 or more years ago she had a bone marrow biopsy which apparently was of negative results with no malignant findings. She reports that she has had issues with pancytopenia all of her life since the age of 4 and prior to her issues related to CKD. She has been on dialysis since mid 2015 and she is currently on a transplant list. She reports frustration with her multiple comorbidities and frequent laboratory monitoring. She also relates frustration with frequent needed blood transfusions given her current situation while she is awaiting for transplant. At her most recent appointment as well as currently while inpatient , she remains B12 deficient evidenced by most recent B12 level of 155. She reports to me that she cannot really recall the last time she received a B12 injection and had stopped taking them monthly as recommended for unknown reasoning. She receives venofer weekly every Saturday, along with Aranesp weekly on Saturday.Nephrology closely follows with patient and we were consulted for further recommendations regarding her pancytopenia. Past Med Surg Social Fam HX - Past Medical History Medical history: CHF, CVA, diabetes, dialysis, GERD, hypertension, kidney stones , renal disease, thyroid disease, other Psychiatric history: anxiety, depression - Past Surgical History Surgical History: appendectomy, cholecystectomy, hysterectomy, other, bariatric surgery - Social History Smoking Status: Never smoker Smokeless Tobacco Status: No Alcohol use: none Drug use: none - Family History Mother Hx Family Neurologic Disorders: Yes (fibromyglia) Father Hx Family Cardiac Disorders: Yes (stents, NE, cath, HTN, DVT) Hx Family Endocrine Disorder: Yes (diabetes) Hx Family Neurologic Disorders: Yes (stroke) Medications and Allergies Calcium Acetate [Phos-LO] 667 mg PO AD 12/07/16 [History] Levothyroxine Sodium [Levoxyl] 100 mcg PO QAM 12/07/16 [History] Cyanocobalamin (B-12) [Vitamin B12] 1,000 mcg PO DAILY #30 tablet 02/21/17 [Rx] Calcitriol 0.5 mcg PO DAILY 05/31/17 [History] Calcium Acetate [Phos-LO] 1,334 mg PO TIDWM 05/31/17 [History] Carvedilol 12.5 mg PO BID 05/31/17 [History] Folic Acid 1 mg PO DAILY 05/31/17 [History] Hydralazine HCl 50 mg PO TID 05/31/17 [History] Lipase/Protease/Amylase [Faviola Haile 24,000 Units Capsule] 2 each PO AD 05/31/17 [ History] Lipase/Protease/Amylase [Faviola Haile 24,000 Units Capsule] 3 each PO TIDWM [History] Ondansetron HCl [Zofran] 4 mg PO Q12H 05/31/17 [History] Rifaximin [Xifaxan] 550 mg PO AD 05/31/17 [History] Sertraline [Zoloft] 50 mg PO DAILY 05/31/17 [History] Subcutaneous Insulin Pump [T:Slim] 1 each MC AD 05/31/17 [History] 3 Allergy/AdvReac Type Severity Reaction Status Date / Time levofloxacin [From Levaquin] Allergy Difficulty Verified 05/31/17 14:03 Breathing ofloxacin Allergy Rash Verified 05/31/17 14:03 Constitutional: Present: fatigue, headache(s), weakness. Absent: chills, fever( s), frequent falls, weight loss Eyes: Absent: change in vision Nose, mouth and throat: Absent: dysphagia, mouth lesions Cardiovascular: Absent: chest pain, irregular heart rhythm, palpitations Respiratory: Present: cough, dyspnea, pain with cough Gastrointestinal: Present: abdominal pain, nausea. Absent: change in bowel habits, hematemesis, hematochezia, melena, vomiting Genitourinary: Present: as per HPI. Absent: dysuria, hematuria Additional comments: dialysis dependent Musculoskeletal: Present: muscle weakness Integumentary: Absent: wounds Neurological: Absent: focal weakness, frequent falls Hematologic/Lymphatic: Present: as per HPI Oncology - Exam - Constitutional Vitals: Temp Pulse Resp BP Pulse Ox 98.6 F 73 18 161/76 93 06/05/17 07:50 06/05/17 07:50 06/05/17 07:50 06/05/17 07:50 06/05/17 07:50 General appearance: cooperative, no acute distress, no febrile - Head Head exam: Present: atraumatic - ENT ENT exam: Present: mucous membranes moist - Respiratory Respiratory exam: Present: CTAB. Absent: respiratory distress - Cardiovascular Cardiovascular exam: Present: RRR, +S1, +S2 - GI/Abdominal GI/Abdominal exam: Present: normal bowel sounds, soft. Absent: tenderness - Extremities Exam Extremities exam: Present: normal inspection. Absent: calf tenderness - Neurological Exam Neurological exam: Present: alert, oriented X3, no focal deficits, strengths equal and symetr throughout - Psychiatric Psychiatric exam: Present: normal affect, normal mood - Skin Skin exam: Present: pallor, warm Oncology - Results Labs: Short CBC 06/05/17 Range/Units 03:20 WBC 2.3 L (4.3-11.1) K/mcL Hgb 9.4 L (11.5-15.4) g/dL Hct 27.6 L (35.3-44.9) % Plt Count 92 L (140-400) K/mcL Neutrophils # 1.1 L (1.6-8.9) K/mcL BMP 06/05/17 03:20 Sodium 135 L Potassium 4.0 Chloride 95 L Carbon Dioxide 31 H BUN 21 H Creatinine 3.90 H Glucose 129 H Calcium 9.6 Consult Discharge Plan - Plan Referrals: Marko Hylton Jr, MD [Primary Care Provider] - <Winter Ulloa - Last Filed: 06/06/17 09:49> Date of Encounter: 06/06/17 - Data of Consult Requesting Physician: Neil Cochran MD Primary Care Provider: Marko Hylton Jr, MD - Consult Narrative History of present illness: Pl refer to Mal Green's documentation who will be seeing this patient later today Oncology - Exam - Constitutional Vitals: Temp Pulse Resp BP Pulse Ox 98.1 F 76 18 127/66 96 06/06/17 07:29 06/06/17 07:29 06/06/17 07:29 06/06/17 07:29 06/06/17 07:29 Oncology - Results Labs: Short CBC 06/06/17 Range/Units 05:51 WBC 2.3 L (4.3-11.1) K/mcL Hgb 10.4 L (11.5-15.4) g/dL Hct 31.0 L (35.3-44.9) % Plt Count 118 L (140-400) K/mcL Neutrophils # 0.9 L (1.6-8.9) K/mcL
[2017-06-05] MEDS: Cyanocobalamin (B-12) 1,000 MCG TABLET PO SCH (13:13)
[2017-06-05] MEDS: Azithromycin 250 MG TABLET PO SCH (13:13)
[2017-06-05] MEDS: Folic Acid 1 MG TABLET PO SCH (13:14)
[2017-06-05] MEDS: hydrALAZINE 25 MG TABLET PO SCH ×3 (13:14→20:23)
[2017-06-05] MEDS: cefTRIAXone 1,000 MG in Water for inj. (sterile) 20 ML 10 ML IVP SCH (13:14)
[2017-06-05] MEDS: Furosemide 40 MG/4 ML VIAL IVP SCH ×2 (15:17→15:25)
--- NOTE | 2017-06-05 18:10 | Nephrology Progress Note ---
Date of Encounter: 06/05/17 Time of Encounter: 11:00 - Assessment and Plan (1) ESRD (end stage renal disease) on dialysis Status: Chronic Continue HD with UF as tolerated Will set new EDW on discharge for outpatient HHD as she has lost 10kgs during stay Continue renal diet (2) Anemia Status: Chronic Hgb stable at 9.4 after 2unit pRBCs s/p aranesp and vitamin B12 shot Stool guaiac negative Appreciate hematology recs Qualifiers: Anemia type: due to chronic kidney disease Chronic kidney disease stage: on chronic dialysis Qualified Code(s): N18.6 - End stage renal disease; D63.1 - Anemia in chronic kidney disease; D63.1 - Anemia in chronic kidney disease; Z99.2 - Dependence on renal dialysis; Z99.2 - Dependence on renal dialysis; Z99.2 - Dependence on renal dialysis; Z99.2 - Dependence on renal dialysis (3) Acute bronchitis Status: Acute Per primary team Qualifiers: Bronchitis organism: unspecified organism Qualified Code(s): J20.9 - Acute bronchitis, unspecified (4) Diastolic CHF, acute on chronic Status: Acute Resolving with aggressive UF Subjective Principal diagnosis: ESRD on dialysis, anemia Interval history: Pt seen and examined on HD with no new complaints. Feels better overall Objective - Vital Signs Vital signs: Vital Signs Temp Pulse Resp BP Pulse Ox 06/05/17 16:35 98.6 F 79 18 90/54 94 06/05/17 12:04 97.7 F 18 135/56 06/05/17 11:40 123/67 06/05/17 11:25 155/65 06/05/17 11:10 152/75 06/05/17 10:55 147/76 06/05/17 10:40 150/74 06/05/17 10:25 135/58 06/05/17 10:10 140/46 06/05/17 09:55 153/79 06/05/17 09:40 176/73 06/05/17 09:25 153/80 06/05/17 09:10 172/86 06/05/17 08:55 193/96 06/05/17 08:40 97.8 F 18 191/88 06/05/17 07:50 98.6 F 73 18 161/76 93 06/05/17 03:24 98.3 F 83 18 176/82 93 06/05/17 00:17 98.6 F 73 18 149/77 93 06/04/17 21:42 98.6 F 80 18 174/81 92 Intake and Output 06/05/17 06/05/17 06/05/17 07:59 15:59 23:59 Intake Total 236 / 236 850 / 850 Output Total 3600 / 3600 Balance 236 / 236 -2750 / -2750 Intake: IV Fluids Rocephin 1,000 MG In Water for inj. (sterile) 10 ML @ 300 mls/ hr IVP DAILY KATIE Rx#:[id number] Oral 236 / 236 240 / 240 Intake, Rinseback and Flushes 600 / 600 Output: Urine 0 / 0 Total Dialysis (HD) Output 3600 / 3600 Other: Meal Lunch Percent of Meal Consumed 80% Stool Size Small Stool Consistency loose Stool Color Brown Green Weight 70.364 kg Blood Glucose* 165 146 197 Hemodialysis Net Fluid Removed 3000 (mL) Patient Weight 06/05/17 23:59 Weight 70.364 kg - General Appearance General appearance: Present: well-developed, well-nourished EENT: Present: ATNC, mucous membranes moist Neck: Present: no JVD, supple Respiratory: Present: clear Cardiology: Present: no edema, normal S1, normal S2 Dialysis Vascular Access: Venous Catheter Gastrointestinal: Present: no tenderness, no guarding Integumentary: Present: warm and dry Neurologic: Present: no focal deficit Musculoskeletal: Present: no deformities Psychiatric: Present: mood/affect appropriate - Lab 06/06/17 05:51 06/06/17 05:51 Most recent lab results Calcium 9.6 mg/dL (8.6-10.3) 06/05/17 03:20 Consult Discharge Plan - Plan Instructions: Heart Failure (DC), Anemia (GEN), Pneumonia (DC) Referrals: Marko Hylton Jr, MD [Primary Care Provider] - 06/13/17 1:00 pm ([facility]. BAKARI SOARES)
[2017-06-05] MEDS ORDERED: Cyanocobalamin (B-12) 1,000 MCG/ML VIAL IM SCH (21:00)
[2017-06-06] MEDS: *HR* Heparin 5,000 UNIT/ML VIAL SQ SCH (05:12)
[2017-06-06] MEDS: *HR* OxyCODONE Immed Rel 5 MG TABLET PO PRN ×2 (05:13→12:12)
[2017-06-06] MEDS: Ondansetron 4 MG/2 ML VIAL IVP PRN (05:13)
[2017-06-06 06:06] LABS: Basophils % 1.3 %; Eosinophils # 0.1 K/mcL (0.0-0.6); Eosinophils % 5.3 %; Hemoglobin 10.4 g/dL (11.5-15.4); Immature Granulocytes % 0.4 % (0-4); Lymphocytes # 0.9 K/mcL (0.6-4.6); Lymphocytes % 39.4 %; Mean Corpuscular HGB Conc 33.5 g/dL (31.6-35.5); Mean Corpuscular Hemoglobin 31.8 pg (28.0-33.3); Mean Corpuscular Volume 94.8 fL (83.0-100.0); Mean Platelet Volume 10.3 fL (9.4-12.4); Monocytes # 0.3 K/mcL (0.0-1.3); Monocytes % 13.3 %; Neutrophils # 0.9 K/mcL (1.6-8.9); Platelet Count 118 K/mcL (140-400); Red Blood Count 3.27 M/mcL (3.82-4.97); Red Cell Distribution Width 17.4 % (11.5-14.5); Segmented Neutrophils % 40.3 %
[2017-06-06] MEDS ORDERED: Furosemide 40 MG TABLET PO SCH (09:00)
[2017-06-06] MEDS: Calcium Acetate 667 MG CAPSULE PO SCH ×2 (09:07→12:06)
[2017-06-06] MEDS: cefTRIAXone 1,000 MG in Water for inj. (sterile) 20 ML 10 ML IVP SCH (09:08)
[2017-06-06] MEDS: hydrALAZINE 25 MG TABLET PO SCH (09:08)
[2017-06-06] MEDS: *HR* HYDROcodone/Acet 5/325 mg TABLET PO PRN (09:08)
[2017-06-06] MEDS: Azithromycin 250 MG TABLET PO SCH (09:08)
[2017-06-06] MEDS: Folic Acid 1 MG TABLET PO SCH (09:08)
--- NOTE | 2017-06-06 09:48 | Internal Med Progress Note ---
Date of Encounter: 06/06/17 Time of Encounter: 08:30 - Assessment and plan (1) Pneumonia Status: Acute Assessment and plan: Clinically appears to have pneumonia CXR demonstrated the following: Increased perihilar markings questioning interstitial edema w/ some L basilar atelectasis. -Patient's cough has improved but still productive with green sputum -Preliminary blood cultures are negative 2 -Influenza negative -Zithromax 500 mg by mouth daily (Day 5) -Rocephin 1 g IV daily (Day 7) -Continue Mucinex Qualifiers: Pneumonia type: due to Pneumococcus Laterality: left Lung location: lower lobe of lung Qualified Code(s): J13 - Pneumonia due to Streptococcus pneumoniae (2) Anemia Status: Chronic Assessment and plan: Hemoglobin is improved from 9.4 to 10.4 since yesterday. Hemoglobin level currently at goal. Per nephrology: -Continue Aranesp -Stool guaiac negative -Goal hgb 10-11 Qualifiers: Qualified Code(s): D64.9 - Anemia, unspecified (3) Chest pain Status: Acute Assessment and plan: Admits to costochondral pain. Qualifiers: Chest pain type: other chest pain Qualified Code(s): R07.89 - Other chest pain; R07.8 - Other chest pain (4) Diastolic CHF, acute on chronic Status: Acute Assessment and plan: Fluid status stable -Continue dialysis and renal management -Weight has decreased from 70 kg down to 68 kg. -Continue Lasix 60 mg IV twice a day (5) Pancytopenia Status: Chronic Assessment and plan: Per oncology: Believed to be secondary to B12 deficiency. - Workup for pernicious anemia including intrinsic factor antibody and parietal cell IgG. - Lab work currently pending includes serum copper, ceruloplasmin, haptoglobin, SPEP and immunoglobulins panel. - Her iron levels are repleted and she receives venofer weekly. - Her LDH and retic count are normal. Her blood smear essentially revealed normal morphology. (6) Type I diabetes mellitus Status: Chronic Assessment and plan: Blood sugar level stable at -Patient has insulin pump Qualifiers: Diabetes mellitus complication status: with kidney complications Diabetes mellitus complication detail: with chronic kidney disease Chronic kidney disease stage: on chronic dialysis Qualified Code(s): E10.22 - Type 1 diabetes mellitus with diabetic chronic kidney disease; N18.6 - End stage renal disease; N18.6 - End stage renal disease; N18.6 - End stage renal disease; N18.6 - End stage renal disease; Z99.2 - Dependence on renal dialysis; Z99.2 - Dependence on renal dialysis; Z99.2 - Dependence on renal dialysis; Z99.2 - Dependence on renal dialysis (7) Vitamin B12 deficiency Status: Chronic Assessment and plan: Being managed by oncology. - B12 IM 1000 g daily 7 days. (8) Pancreatic insufficiency Status: Chronic Assessment and plan: Holding Creon at this time Patient admits her stomach still feels slightly upset (9) DVT prophylaxis Status: Acute Assessment and plan: On heparin 5000 units subcutaneously every 12 hours - Subjective Interval history: Ms. Elkins is a 42 year old female with a past medical history of diabetes type 1 using an insulin pump, end-stage renal disease on hemodialysis at home) HTN, CVAs, diastolic CHF, pancytopenia, chronic anemia who came to the emergency room complaining of difficulty breathing. When seen today patient said that her cough has improved considerably since yesterday. She still has a productive cough with green sputum. Today she denies any shortness of breath. She denies any fever. Admits to nausea but denies any vomiting. She denies any diarrhea or hematochezia. Admits to some minor dysuria for the past 2 days but denies any hematuria. She admits to some minor orthopnea. - Constitutional Vitals: Temp Pulse Resp BP Pulse Ox 98.1 F 76 18 127/66 96 06/06/17 07:29 06/06/17 07:29 06/06/17 07:29 06/06/17 07:29 06/06/17 07:29 General appearance: Present: A&O X 3, pleasant, answers questions appropriately - Respiratory Respiratory exam: Present: chest wall tenderness, CTAB. Absent: accessory muscle use, rales, rhonchi, wheezes - Cardiovascular Cardiovascular exam: Present: RRR, +S1, +S2. Absent: diastolic murmur, gallop, rubs, systolic murmur - GI/Abdominal GI/Abdominal exam: Present: normal bowel sounds, soft, tenderness (Minor left upper abdominal pain.). Absent: guarding, rebound - Extremities Exam Extremities exam: Present: calf tenderness (Minor left calf tenderness. ), full ROM, normal capillary refill, warm, radial pulses palpable and symmetrical. Absent: cyanotic, pedal edema Internal Medicine: Result - Labs CBC & Chem 7: 06/06/17 05:51 06/06/17 05:51 Labs: Short CBC 06/06/17 Range/Units 05:51 WBC 2.3 L (4.3-11.1) K/mcL Hgb 10.4 L (11.5-15.4) g/dL Hct 31.0 L (35.3-44.9) % Plt Count 118 L (140-400) K/mcL Neutrophils # 0.9 L (1.6-8.9) K/mcL Consult Discharge Plan - Plan Instructions: Heart Failure (DC), Anemia (GEN), Pneumonia (DC) Referrals: Marko Hylton Jr, MD [Primary Care Provider] - 06/13/17 1:00 pm ([facility]. BAKARI SOAERS)
[2017-06-06 09:58] LABS: Calcium 9.3 mg/dL (8.6-10.3); Potassium 4.4 mEq/L (3.5-5.1)
--- NOTE | 2017-06-06 10:43 | Discharge Summary ---
<Rashad Gates - Last Filed: 06/06/17 12:30> Orders not resulted at time of discharge: Pending orders 06/04/17 18:00 Ceruloplasmin Routine Copper Routine Haptoglobin Routine Immunoglobulins IgG IgA IgM Routine Intrinsic Factor Blocking Ab Routine Parietal Cell IgG Routine Protein Electrophoresis Routine Date of Encounter: 06/06/17 Time of Encounter: 08:20 - Discharge Diagnosis (1) Pneumonia Priority: Primary Status: Acute Qualifiers: Pneumonia type: due to Pneumococcus Laterality: left Lung location: lower lobe of lung Qualified Code(s): J13 - Pneumonia due to Streptococcus pneumoniae (2) Anemia Priority: Primary Status: Chronic Qualifiers: Qualified Code(s): D64.9 - Anemia, unspecified (3) Chest pain Priority: Primary Status: Acute Qualifiers: Chest pain type: other chest pain Qualified Code(s): R07.89 - Other chest pain; R07.8 - Other chest pain (4) Diastolic CHF, acute on chronic Priority: Primary Status: Acute (5) Pancytopenia Priority: Primary Status: Chronic (6) Type I diabetes mellitus Priority: Primary Status: Chronic Qualifiers: Diabetes mellitus complication status: with kidney complications Diabetes mellitus complication detail: with chronic kidney disease Chronic kidney disease stage: on chronic dialysis Qualified Code(s): E10.22 - Type 1 diabetes mellitus with diabetic chronic kidney disease; N18.6 - End stage renal disease; N18.6 - End stage renal disease; N18.6 - End stage renal disease; N18.6 - End stage renal disease; Z99.2 - Dependence on renal dialysis; Z99.2 - Dependence on renal dialysis; Z99.2 - Dependence on renal dialysis; Z99.2 - Dependence on renal dialysis (7) Vitamin B12 deficiency Priority: Primary Status: Chronic (8) Pancreatic insufficiency Priority: Secondary Status: Chronic (9) DVT prophylaxis Priority: Primary Status: Acute Hospital course: Ms. Elkins is a 42 year old female with a past medical history of diabetes type 1 using an insulin pump, end-stage renal disease on hemodialysis at home) HTN, CVAs, diastolic CHF, pancytopenia, chronic anemia who came to the emergency room complaining of difficulty breathing. Patient was reporting shortness of breath for the last 5 days prior to admission. She has been on dialysis since July 2017 and sees nephrology here. Patient performs dialysis at home and is been compliant. She was given 80 mg dose of Lasix upon admission her recommendation from nephrology. Chest x-ray showed possible left lower lobe atelectasis versus pneumonia. She was subsequently started on azithromycin in addition to continuing her Rocephin which she was on day 3 of. Echocardiogram showed an ejection fraction of 55%. Due to history of diastolic CHF and patient being fluid overloaded she was on Lasix 40 mg twice a day per nephrology and on strict I&O's. Patient is a type I diabetic that is on insulin pump. Glucose levels have been well-controlled. When seen today patient said that her cough has improved considerably since yesterday. She still has a productive cough with green sputum. Today she denies any shortness of breath. She denies any fever. Admits to nausea but denies any vomiting. She denies any diarrhea or hematochezia. Admits to some minor dysuria for the past 2 days but denies any hematuria. She admits to some minor orthopnea. Patient has finished 5 days of azithromycin and 7 days of Rocephin for her pneumonia. Patient's hemoglobin is at goal level between 10-11. Her chest pain was attributed to costochondral pain. Patient has been responding well with Lasix for her fluid overload. She has been seeing nephrology and has been undergoing hemodialysis. Her her pancytopenia and chronic anemia seems to be likely related to her B12 deficiency as per oncology. Workup for pernicious anemia has been started by oncology. Recommend holding Creon until patient can see PCP. Recommend holding home medication of rifaximin as well until patient can see PCP. - Time Spent with Patient Total time spent providing and/or coordinating discharge services: Less than 30 minutes - Discharge Medications Home Medications: Calcium Acetate [Phos-LO] 667 mg PO AD 12/07/16 [History] Levothyroxine Sodium [Levoxyl] 100 mcg PO QAM 12/07/16 [History] Cyanocobalamin (B-12) [Vitamin B12] 1,000 mcg PO DAILY #30 tablet 02/21/17 [Rx] Calcitriol 0.5 mcg PO DAILY 05/31/17 [History] Calcium Acetate [Phos-LO] 1,334 mg PO TIDWM 05/31/17 [History] Carvedilol 12.5 mg PO BID 05/31/17 [History] Folic Acid 1 mg PO DAILY 05/31/17 [History] Hydralazine HCl 50 mg PO TID 05/31/17 [History] Ondansetron HCl [Zofran] 4 mg PO Q12H 05/31/17 [History] Sertraline [Zoloft] 50 mg PO DAILY 05/31/17 [History] Subcutaneous Insulin Pump [T:Slim] 1 each MC AD 05/31/17 [History] Allergies/Adverse Reactions: 3 Allergy/AdvReac Type Severity Reaction Status Date / Time levofloxacin [From Levaquin] Allergy Difficulty Verified 05/31/17 14:03 Breathing ofloxacin Allergy Rash Verified 05/31/17 14:03 Date of admission: 06/02/17 11:58 Primary care physician: Marko Hylton Jr, MD Consults: 06/03/17 08:15 Consult to Dialysis [CONS] ONCE 06/04/17 09:30 Consult to Dialysis [CONS] ONCE 06/04/17 17:01 Consult to Oncology Hematology [CONS] Routine Consulting Provider: Winter Ulloa Reason for Consult: pancytopenia Call Completed: Yes 06/05/17 07:45 Consult to Dialysis [CONS] ONCE Discharging clinician: Rashad Gates Anticipated date of discharge: 06/06/17 - Constitutional Vitals: Temp Pulse Resp BP Pulse Ox 98.1 F 76 18 127/66 96 06/06/17 07:29 06/06/17 07:29 06/06/17 07:29 06/06/17 07:29 06/06/17 07:29 General appearance: Present: A&O X 3, pleasant, answers questions appropriately - Respiratory Respiratory exam: Present: CTAB. Absent: accessory muscle use, rales, rhonchi, wheezes - Cardiovascular Cardiovascular exam: Present: RRR, +S1, +S2. Absent: diastolic murmur, gallop, rubs, systolic murmur - GI/Abdominal GI/Abdominal exam: Present: normal bowel sounds, soft, tenderness (Admits to minor left upper quadrant tenderness upon palpation.). Absent: guarding, rebound - Extremities Exam Extremities exam: Present: full ROM, normal capillary refill, tenderness (Minor left calf tenderness. ), warm, radial pulses palpable and symmetrical. Absent: cyanotic, pedal edema - Patient Status Disposition: Home, Self-Care Condition: Good Overall status at discharge: patient is progressing back to baseline - Discharge Instructions Instructions: Heart Failure (DC), Anemia (GEN), Pneumonia (DC) Follow Up With: Marko Hylton Jr, MD [Primary Care Provider] - 06/13/17 1:00 pm ([facility]. BAKARI SOARES) - Diet and Activity Activity: resume usual activities as tolerated Diet: diabetic diet <Neil Cochran T - Last Filed: 06/06/17 13:53> Orders not resulted at time of discharge: Pending orders 06/04/17 18:00 Ceruloplasmin Routine Copper Routine Haptoglobin Routine Immunoglobulins IgG IgA IgM Routine Intrinsic Factor Blocking Ab Routine Parietal Cell IgG Routine Protein Electrophoresis Routine Date of Encounter: 06/06/17 - Discharge Diagnosis (1) Pancytopenia Status: Chronic Hospital course: Ms. Elkins is a 42 year old female - Time Spent with Patient Total time spent providing and/or coordinating discharge services: Greater than 30 minutes Date of admission: 06/02/17 11:58 Primary care physician: Marko Hylton Jr, MD Consults: 06/03/17 08:15 Consult to Dialysis [CONS] ONCE 06/04/17 09:30 Consult to Dialysis [CONS] ONCE 06/04/17 17:01 Consult to Oncology Hematology [CONS] Routine Consulting Provider: Winter Ulloa Reason for Consult: pancytopenia Call Completed: Yes 06/05/17 07:45 Consult to Dialysis [CONS] ONCE - Constitutional Vitals: Temp Pulse Resp BP Pulse Ox 98 F 70 20 103/61 96 06/06/17 12:03 06/06/17 12:03 06/06/17 12:03 06/06/17 12:03 06/06/17 12:03 - Attending Attestation I examined this patient and my medical decision-making was reviewed with the Resident Physician. I agree with the documented findings, disposition and treatment plan as described except to the extent set forth below. Patient is seen and evaluated at the bedside with her partner. She is a known type 1 diabetes mellitus insulin-dependent, versus hemodialysis at home 5 days a week, she was admitted for acute exacerbation of diastolic CHF as well as community-acquired pneumonia. She has done significant improvement with diuresis, ultrafiltration, hemodialysis as well as intravenous antibiotics. She has completed a intercurrent period of antibiotics course. She did have a few episodes of diarrhea, particularly with C. difficile. She has no new complains her breathing has improved her cough is initially diminished and she is medically stable. She has history of pancytopenia, she was reviewed by oncology inpatient, multiple work up pending. She is stable to be discharged home to follow up with her apprentice, oncologist, and primary care physician. Rest of details is as in the resident physician's documentation.
[2017-06-06 12:06] VITALS: BP 103/61
--- NOTE | 2017-06-06 14:20 | Oncology Office Progress Note ---
Date of Service: 06/06/17 Chief Complaint: Follow up Primary Care Provider: Marko Hylton Jr, MD Oncology History: Admitted with pneumonia, shortness of breath and volume overload Since admission currently doing well. Lost about 10 kg with dialysis and currently has no lower extremity edema i Breathing has been stabilized. Getting treatment for pneumonia with Rocephin IV daily Zithromax 500 mg by mouth daily Review Of Systems Provider Comments:: A 12 point review of systems was performed. Pertinent positives and negatives are listed below and in the history of present illness. All other systems negative. - Medications and Allergies Home Medications: Calcium Acetate [Phos-LO] 667 mg PO AD 12/07/16 [History] Levothyroxine Sodium [Levoxyl] 100 mcg PO QAM 12/07/16 [History] Cyanocobalamin (B-12) [Vitamin B12] 1,000 mcg PO DAILY #30 tablet 02/21/17 [Rx] Calcitriol 0.5 mcg PO DAILY 05/31/17 [History] Calcium Acetate [Phos-LO] 1,334 mg PO TIDWM 05/31/17 [History] Carvedilol 12.5 mg PO BID 05/31/17 [History] Folic Acid 1 mg PO DAILY 05/31/17 [History] Hydralazine HCl 50 mg PO TID 05/31/17 [History] Ondansetron HCl [Zofran] 4 mg PO Q12H 05/31/17 [History] Sertraline [Zoloft] 50 mg PO DAILY 05/31/17 [History] Subcutaneous Insulin Pump [T:Slim] 1 each MC AD 05/31/17 [History] Allergies/Adverse Reactions: 3 Allergy/AdvReac Type Severity Reaction Status Date / Time levofloxacin [From Levaquin] Allergy Difficulty Verified 05/31/17 14:03 Breathing ofloxacin Allergy Rash Verified 05/31/17 14:03 Code Status: Full Code Surgical History: appendectomy, , cholecystectomy, hysterectomy, other Smoking Status: Never smoker Smokeless Tobacco Status: No Alcohol use: none Drug use: none Vital Signs 3 Temperature 98 F 06/06/17 12:03 Temperature Source Oral 06/06/17 12:03 Pulse Rate 70 06/06/17 12:03 Pulse Rhythm Regular 06/06/17 09:20 Pulse Strength Normal 06/01/17 13:20 Respiratory Rate 20 03/15/18 12:03 Respiratory Effort Spontaneous 06/06/17 09:20 Respiratory Depth Normal 06/06/17 09:20 Respiratory Pattern 06/06/17 09:20 Blood Pressure 103/61 06/06/17 12:03 Blood Pressure Mean 127 06/01/17 13:20 Blood Pressure Position Supine 06/06/17 07:29 Oxygen Delivery Method Room Air 06/06/17 12:03 Oxygen Delivery Method 06/05/17 08:30 Oxygen Flow Rate (LPM) 3 06/03/17 21:45 Fraction of Inspired Oxygen % 21 06/01/17 15:53 O2 Sat by Pulse Oximetry 96 06/06/17 12:03 3 Weight 68.492 kg Physical Exam: General: Alert and oriented, well appearing. Mental Status: Affect appropriate for circumstances HEENT: Sclerae anicteric. No mucositis or thrush. No other oral lesions or erythema. Skin: No rashes or petechiae. Lymph nodes: No cervical, supraclavicular, axillary, or inguinal adenopathy. Lungs: Clear to auscultation and percussion bilaterally. Cardiovascular: Regular rate and rhythm. No gallops, murmurs, or rubs. Abdomen: Soft, nontender; no organomegaly or masses palpable. Extremities: No edema. No calf swelling or tenderness. No joint deformity. Neurologic: Alert, cranial nerves II-XII intact; no focal weakness or sensory abnormalities. Oncology - Results Labs: Short CBC 06/06/17 Range/Units 05:51 WBC 2.3 L (4.3-11.1) K/mcL Hgb 10.4 L (11.5-15.4) g/dL Hct 31.0 L (35.3-44.9) % Plt Count 118 L (140-400) K/mcL Neutrophils # 0.9 L (1.6-8.9) K/mcL BMP 06/06/17 05:51 Sodium 133 L Potassium 4.4 Chloride 98 Carbon Dioxide 29 BUN 18 Creatinine 3.34 H Glucose 211 H Calcium 9.3
--- NOTE | 2017-06-06 14:25 | Oncology Inp Progress Note ---
Date of Encounter: 06/06/17 Time of Encounter: 14:23 (1) ESRD (end stage renal disease) Current Visit: Yes Status: Acute Assessment and plan: Currently on home hemodialysis. She also gives herself Procrit injections. She gets periodic IV Venofer (2) Anemia Current Visit: No Status: Chronic Assessment and plan: Significant B12 deficiency. She claims when she went to [facility] they stopped her B12 and not getting it. On admission B12 low at 150. She has been getting B12 injections daily in the Hospital packed RBC transfusion. Anemia has improved. Hemoglobin improved from 6.6 on admission to 10.4 on 06/06/2017 End-stage renal disease is also playing a role in her anemia She follows up with [facility] Strongly advised about the importance of getting B12 injection. This time I will schedule B12 injection once a month [facility] Qualifiers: Anemia type: due to chronic kidney disease Chronic kidney disease stage: on chronic dialysis Qualified Code(s): N18.6 - End stage renal disease; D63.1 - Anemia in chronic kidney disease; D63.1 - Anemia in chronic kidney disease; Z99.2 - Dependence on renal dialysis; Z99.2 - Dependence on renal dialysis; Z99.2 - Dependence on renal dialysis; Z99.2 - Dependence on renal dialysis Oncology: Subj Interval history: Admitted with pneumonia, shortness of breath and volume overload Since admission currently doing well. Lost about 10 kg with dialysis and currently has no lower extremity edema i Breathing has been stabilized. Getting treatment for pneumonia with Rocephin IV daily Zithromax 500 mg by mouth daily - Constitutional Vitals: Vital Signs Temp Pulse Resp BP Pulse Ox 06/06/17 12:03 98 F 70 20 103/61 96 06/06/17 07:29 98.1 F 76 18 127/66 96 06/06/17 03:55 97.9 F 66 20 127/71 97 06/06/17 01:18 98.0 F 70 18 100 06/05/17 21:36 98.4 F 72 20 158/82 96 06/05/17 16:35 98.6 F 79 18 90/54 94 Intake and Output 06/05/17 06/06/17 06/06/17 23:59 07:59 15:59 Intake Total 0 / 0 360 / 360 Output Total 0 / 0 Balance 0 / 0 360 / 360 Intake: Oral 0 / 0 360 / 360 Output: Urine 0 / 0 Other: Meal Lunch Percent of Meal Consumed 0% Weight 68.492 kg Blood Glucose* 337 256 Patient Weight 06/06/17 23:59 Weight 68.492 kg Exam: GENERAL: Alert and oriented, well appearing. Mental Status: Affect appropriate for circumstances HEENT: Sclerae anicteric. No mucositis or thrush. No other oral or pharyngeal lesions or erythema. Skin: No rashes or petechiae. No evidence of skin malignancy Lymph nodes: No cervical, supraclavicular, axillary, or inguinal adenopathy. Lungs: Air entry normal with normal breath sounds. No rhonchi or wheezing Cardiovascular: Regular rate and rhythm. No skipped beats Abdomen: Soft, nontender; no organomegaly or masses palpable. Extremities: No edema. No calf swelling or tenderness. No joint deformity. Neurologic: Alert, cranial nerves II-XII intact; normal gait; no focal weakness or sensory abnormalities Oncology: Obj Data - Labs CBC & Chem 7: 06/06/17 05:51 06/06/17 05:51 Labs: Laboratory Results - last 24 hr 06/05/17 06/05/17 06/05/17 12:29 16:39 21:34 WBC RBC Hgb Hct MCV MCH MCHC RDW Plt Count MPV Immature Gran % Seg Neutrophils % Lymphocytes % Monocytes % Eosinophils % Basophils % Neutrophils # Lymphocytes # Monocytes # Eosinophils # Basophils # Sodium Potassium Chloride Carbon Dioxide BUN Creatinine Est GFR ( Amer) Est GFR (Non-Af Amer) BUN/Creatinine Ratio Glucose POC Glucose 146 H 197 H 337 H Calculated Osmolality Calcium 06/06/17 06/06/17 06/06/17 05:51 05:51 08:22 WBC 2.3 L RBC 3.27 L Hgb 10.4 L Hct 31.0 L MCV 94.8 MCH 31.8 MCHC 33.5 RDW 17.4 H Plt Count 118 L MPV 10.3 Immature Gran % 0.4 Seg Neutrophils % 40.3 Lymphocytes % 39.4 Monocytes % 13.3 Eosinophils % 5.3 Basophils % 1.3 Neutrophils # 0.9 L Lymphocytes # 0.9 Monocytes # 0.3 Eosinophils # 0.1 Basophils # 0.0 Sodium 133 L Potassium 4.4 Chloride 98 Carbon Dioxide 29 BUN 18 Creatinine 3.34 H Est GFR ( Amer) 18 L Est GFR (Non-Af Amer) 15 L BUN/Creatinine Ratio 5 L Glucose 211 H POC Glucose 203 H Calculated Osmolality 284 Calcium 9.3 Consult Discharge Plan - Plan Instructions: Heart Failure (DC), Anemia (GEN), Pneumonia (DC) Referrals: Marko Hylton Jr, MD [Primary Care Provider] - 06/13/17 1:00 pm ([facility]. BAKARI SOARES)
[2017-06-07 08:02] LABS: Immunoglobulin A 207 mg/dL (68-408); Immunoglobulin G 896 mg/dL (768-1632); Immunoglobulin M 68 mg/dL (35-263)
[2017-06-07 19:17] LABS: Alpha 2 Globulin (PEP) 0.68 g/dL (0.48-1.05)
[2017-06-09 14:19] LABS: IFE Reflexed NOT DONE
== END 2017-06-06 14:22 | disposition home or self-care (01) | DRG 291 ==
LOC: 2ANU 13:49 → EMEROO 13:49 → 2ANU 17:11 → SUATTDRO 06-02 11:58
PROVIDERS: ADMIT Internal Medicine; ATTEND Internal Medicine

== ENCOUNTER 2019-05-26 09:16 | Inpatient (IN) ==
[2019-05-26] MEDS ORDERED: *HR* OxyCODONE/APAP 5/325 TABLET PO ONE (10:43)
[2019-05-26] MEDS ORDERED: Ondansetron 4 MG/2 ML VIAL IVP ONE (11:05)
[2019-05-26 11:21] LABS: INR 1.1
[2019-05-26 11:23] LABS: Activated Partial Thrombo Time 50.9 Seconds (26.0-36.0)
[2019-05-26 11:46] LABS: Alanine Aminotransferase 5 Units/L (7-52); Albumin 3.2 g/dL (3.5-5.7); Albumin/Globulin Ratio 1.3 (1.1-2.2); Alkaline Phosphatase 56 Units/L (34-104); Aspartate Amino Transferase 5 Units/L (13-39); BUN/Creatinine Ratio 5 (6-26); Bilirubin,Direct 0.2 mg/dL (0.0-0.2); Bilirubin,Indirect 0.4 mg/dL (0.0-1.0); Bilirubin,Total 0.6 mg/dL (0.3-1.0); Blood Urea Nitrogen 27 mg/dL (6-20); Calcium 7.2 mg/dL (8.6-10.3); Carbon Dioxide 33 mEq/L (23-29); Chloride 96 mEq/L (98-107); Globulin 2.5 g/dL (2.4-3.5); Glucose 107 mg/dL (70-105); Lipase 8 Units/L (11-82); Osmolality,Calculated 290 (280-300); Potassium 2.6 mEq/L (3.5-5.1); Sodium 137 mEq/L (136-145); Total Protein 5.7 g/dL (6.4-8.9); Troponin I < 0.03 ng/mL (< 0.04); eGFR For African Americans 11 (> 60); eGFR For Non-African Americans 9 (> 60)
[2019-05-26 11:58] LABS: Basophils % 0.5 %; Immature Platelets 2.5 % (1.1-6.1); Mean Corpuscular Volume 93.8 fL (83.0-100.0)
[2019-05-26 11:59] LABS: Eosinophils # 0.1 K/mcL (0.0-0.6); Eosinophils % 5.5 %; Hematocrit 15.2 % (35.3-44.9); Immature Granulocytes % 0.5 % (0-4); Lymphocytes # 0.4 K/mcL (0.6-4.6); Lymphocytes % 22.4 %; Mean Corpuscular HGB Conc 35.5 g/dL (31.6-35.5); Mean Corpuscular Hemoglobin 33.3 pg (28.0-33.3); Mean Platelet Volume 10.6 fL (9.4-12.4); Monocytes # 0.1 K/mcL (0.0-1.3); Monocytes % 7.7 %; Red Blood Count 1.62 M/mcL (3.82-4.97); Segmented Neutrophils % 63.4 %; White Blood Count 1.8 K/mcL (4.3-11.1)
[2019-05-26 12:01] LABS: Neutrophils # 1.1 K/mcL (1.6-8.9); Platelet Count 85 K/mcL (140-400)
[2019-05-26 12:05] LABS: Hemoglobin 5.4 g/dL (11.5-15.4)
[2019-05-26 12:11] LABS: Anisocytosis 1+ (Not Present); Platelet Estimate Slight Decrease (Normal)
[2019-05-26] MEDS ORDERED: Naloxone 0.4 MG/ML INJ IVP PRN (13:07)
[2019-05-26] MEDS ORDERED: 0.9 % Sodium Chloride 250 ML ONE ×2 (13:32→17:40)
[2019-05-26 14:15] LABS: Basophils % 0.5 %; Segmented Neutrophils % 59.1 %
[2019-05-26 14:17] LABS: Eosinophils # 0.1 K/mcL (0.0-0.6); Eosinophils % 6.4 %; Hematocrit 15.2 % (35.3-44.9); Immature Platelets 2.7 % (1.1-6.1); Lymphocytes # 0.5 K/mcL (0.6-4.6); Lymphocytes % 25.5 %; Mean Corpuscular HGB Conc 34.2 g/dL (31.6-35.5); Mean Corpuscular Hemoglobin 32.3 pg (28.0-33.3); Mean Corpuscular Volume 94.4 fL (83.0-100.0); Mean Platelet Volume 10.4 fL (9.4-12.4); Monocytes # 0.2 K/mcL (0.0-1.3); Monocytes % 8.5 %; Neutrophils # 1.1 K/mcL (1.6-8.9); Red Blood Count 1.61 M/mcL (3.82-4.97); Red Cell Distribution Width 15.3 % (11.5-14.5); White Blood Count 1.9 K/mcL (4.3-11.1)
[2019-05-26 14:38] LABS: Platelet Count 90 K/mcL (140-400)
[2019-05-26 14:39] LABS: Calcium 7.1 mg/dL (8.6-10.3); Hemoglobin 5.2 g/dL (11.5-15.4); Magnesium 2.1 mg/dL (1.6-2.6); Potassium 2.9 mEq/L (3.5-5.1)
[2019-05-26 15:28] LABS: Platelet Estimate Slight Decrease (Normal)
[2019-05-26] MEDS ORDERED: Potassium Chloride 40 MEQ, Lidocaine 1% 2 ML in 0.9 % Sodium Chloride 500 ML IVPB ONE (16:42)
[2019-05-26] MEDS ORDERED: Potassium Chloride Elixir 20 MEQ/15 ML UDC PO ONE ×2 (17:36→22:00)
[2019-05-26] MEDS: carvediloL 6.25 MG TABLET PO SCH (17:44)
[2019-05-26] MEDS: Calcium Acetate 667 MG CAPSULE PO SCH (17:44)
[2019-05-26] MEDS: Ondansetron 4 MG/2 ML VIAL IVP PRN (17:45)
[2019-05-26] MEDS: CycloSPORINE, Mod (Neoral) 25 MG CAPSULE PO SCH (19:34)
[2019-05-26] MEDS: ALPRAZolam 0.5 MG TABLET PO SCH (19:35)
[2019-05-26] MEDS: ISAVUCONAZONIUM SULFATE 186 MG PO SCH (19:38)
[2019-05-26 22:58] LABS: White Blood Count 2.6 K/mcL (4.3-11.1)
[2019-05-26 22:59] LABS: Basophils % 0.4 %; Eosinophils # 0.1 K/mcL (0.0-0.6); Eosinophils % 5.4 %; Hematocrit 22.2 % (35.3-44.9); Lymphocytes # 0.5 K/mcL (0.6-4.6); Lymphocytes % 19.9 %; Mean Corpuscular HGB Conc 34.2 g/dL (31.6-35.5); Mean Corpuscular Hemoglobin 31.8 pg (28.0-33.3); Mean Corpuscular Volume 92.9 fL (83.0-100.0); Mean Platelet Volume 10.6 fL (9.4-12.4); Monocytes # 0.2 K/mcL (0.0-1.3); Monocytes % 7.3 %; Neutrophils # 1.8 K/mcL (1.6-8.9); Platelet Count 102 K/mcL (140-400); Red Blood Count 2.39 M/mcL (3.82-4.97); Red Cell Distribution Width 15.4 % (11.5-14.5)
[2019-05-26 23:00] LABS: Hemoglobin 7.6 g/dL (11.5-15.4)
[2019-05-26 23:14] LABS: Potassium 4.5 mEq/L (3.5-5.1)
[2019-05-27] MEDS: Ondansetron 4 MG/2 ML VIAL IVP PRN (03:52)
[2019-05-27 05:00] LABS: Hemoglobin 7.1 g/dL (11.5-15.4); Red Cell Distribution Width 15.7 % (11.5-14.5)
[2019-05-27 05:02] LABS: Basophils % 0.4 %; Eosinophils # 0.1 K/mcL (0.0-0.6); Eosinophils % 6.2 %; Immature Granulocytes % 0.4 % (0-4); Immature Platelets 2.4 % (1.1-6.1); Lymphocytes # 0.5 K/mcL (0.6-4.6); Lymphocytes % 22.7 %; Mean Corpuscular HGB Conc 33.8 g/dL (31.6-35.5); Mean Corpuscular Hemoglobin 31.4 pg (28.0-33.3); Mean Corpuscular Volume 92.9 fL (83.0-100.0); Mean Platelet Volume 10.3 fL (9.4-12.4); Monocytes # 0.2 K/mcL (0.0-1.3); Monocytes % 7.1 %; Red Blood Count 2.26 M/mcL (3.82-4.97); Segmented Neutrophils % 63.2 %; White Blood Count 2.3 K/mcL (4.3-11.1)
[2019-05-27 05:08] LABS: Neutrophils # 1.5 K/mcL (1.6-8.9); Platelet Count 87 K/mcL (140-400)
[2019-05-27 05:11] LABS: Calcium 6.9 mg/dL (8.6-10.3); Magnesium 2.1 mg/dL (1.6-2.6); Potassium 4.3 mEq/L (3.5-5.1)
[2019-05-27] MEDS ORDERED: *HR* Heparin 10,000 UNIT/10 ML VIAL IV PRN (07:32)
[2019-05-27] MEDS ORDERED: 0.9 % Sodium Chloride 250 ML IVC PRN (07:32)
[2019-05-27] MEDS ORDERED: 0.9 % Sodium Chloride 1,000 ML PRIME SCH (07:45)
[2019-05-27] MEDS: ALPRAZolam 0.5 MG TABLET PO SCH ×3 (08:25→20:02)
[2019-05-27] MEDS: NIFEdipine XL (24 HR) 30 MG TAB.ER.24 PO SCH (08:25)
[2019-05-27] MEDS: Acetaminophen 325 MG TABLET PO PRN ×2 (08:25→17:43)
[2019-05-27] MEDS: Calcium Acetate 667 MG CAPSULE PO SCH ×3 (08:25→16:22)
[2019-05-27] MEDS: CycloSPORINE, Mod (Neoral) 25 MG CAPSULE PO SCH ×2 (08:25→20:01)
[2019-05-27] MEDS: carvediloL 6.25 MG TABLET PO SCH ×2 (08:27→16:22)
[2019-05-27] MEDS: ISAVUCONAZONIUM SULFATE 186 MG PO SCH (08:27)
[2019-05-27] MEDS: predniSONE 10 MG TABLET PO SCH (08:27)
[2019-05-27 09:37] LABS: Hepatitis B Surface Antigen Nonreactive (Nonreactive)
[2019-05-27] MEDS ORDERED: 0.9 % Sodium Chloride 250 ML ONE (13:50)
[2019-05-27 14:24] LABS: Vitamin B12 401 pg/mL (250-1100)
[2019-05-27] MEDS ORDERED: ISAVUCONAZONIUM SULFATE 186 MG PO SCH (19:30)
[2019-05-28] MEDS: Ondansetron 4 MG/2 ML VIAL IVP PRN ×2 (03:49→12:50)
[2019-05-28 03:55] LABS: Basophils % 0.5 %; Hemoglobin 8.1 g/dL (11.5-15.4); Mean Platelet Volume 10.4 fL (9.4-12.4); Red Cell Distribution Width 15.7 % (11.5-14.5)
[2019-05-28 03:58] LABS: Eosinophils # 0.1 K/mcL (0.0-0.6); Eosinophils % 5.9 %; Hematocrit 23.9 % (35.3-44.9); Immature Platelets 2.3 % (1.1-6.1); Lymphocytes # 0.6 K/mcL (0.6-4.6); Lymphocytes % 26.4 %; Mean Corpuscular HGB Conc 33.9 g/dL (31.6-35.5); Mean Corpuscular Hemoglobin 30.9 pg (28.0-33.3); Mean Corpuscular Volume 91.2 fL (83.0-100.0); Monocytes # 0.3 K/mcL (0.0-1.3); Monocytes % 11.4 %; Neutrophils # 1.2 K/mcL (1.6-8.9); Red Blood Count 2.62 M/mcL (3.82-4.97); Segmented Neutrophils % 55.8 %; White Blood Count 2.2 K/mcL (4.3-11.1)
[2019-05-28 04:11] LABS: Platelet Count 93 K/mcL (140-400)
[2019-05-28 04:53] LABS: Calcium 7.6 mg/dL (8.6-10.3); Magnesium 1.9 mg/dL (1.6-2.6); Potassium 4.2 mEq/L (3.5-5.1)
[2019-05-28] MEDS ORDERED: *HR* FentaNYL (PF) 100 MCG/2 ML VIAL IVP ONE (08:13)
[2019-05-28] MEDS ORDERED: *HR* Midazolam HCl 2 MG/2 ML VIAL IVP ONE (08:13)
[2019-05-28] MEDS: ALPRAZolam 0.5 MG TABLET PO SCH ×2 (08:45→16:19)
[2019-05-28] MEDS: CycloSPORINE, Mod (Neoral) 25 MG CAPSULE PO SCH (08:45)
[2019-05-28] MEDS: carvediloL 6.25 MG TABLET PO SCH ×2 (08:46→16:20)
[2019-05-28] MEDS: Calcium Acetate 667 MG CAPSULE PO SCH ×3 (08:46→16:19)
[2019-05-28] MEDS: predniSONE 10 MG TABLET PO SCH (08:46)
[2019-05-28] MEDS: NIFEdipine XL (24 HR) 30 MG TAB.ER.24 PO SCH (08:47)
[2019-05-28] MEDS ORDERED: 0.9 % Sodium Chloride 500 ML ONE (09:26)
[2019-05-28 15:45] VITALS: BP 152/88
[2019-06-01] MEDS ORDERED: Cholecalciferol (D-3) 1,000 UNIT (25MCG) TABLET PO SCH (16:55)
== END 2019-05-28 18:56 | disposition home or self-care (01) | DRG 808 ==
LOC: SUATTDRO → EMEROOARM 09:16 → 2ANU 09:16 → SUATTDRO 14:34 → 2ANU 15:41
PROVIDERS: ADMIT Pharmacist; ATTEND Internal Medicine

== ENCOUNTER 2019-08-10 23:54 | Observation (INO) ==
[2019-08-11 01:11] LABS: Eosinophils % 0.5 %; Immature Granulocytes % 0.5 % (0-4); White Blood Count 2.1 K/mcL (4.3-11.1)
[2019-08-11 01:13] LABS: Immature Platelets 2.5 % (1.1-6.1); Lymphocytes # 0.2 K/mcL (0.6-4.6); Lymphocytes % 9.2 %; Mean Corpuscular Hemoglobin 32.2 pg (28.0-33.3); Mean Platelet Volume 10.7 fL (9.4-12.4); Monocytes # 0.2 K/mcL (0.0-1.3); Monocytes % 7.3 %; Neutrophils # 1.7 K/mcL (1.6-8.9); Red Blood Count 1.74 M/mcL (3.82-4.97); Segmented Neutrophils % 82.5 %
[2019-08-11 01:17] LABS: Platelet Count 67 K/mcL (140-400)
[2019-08-11 01:19] LABS: Hemoglobin 5.6 g/dL (11.5-15.4)
[2019-08-11 01:31] LABS: Platelet Estimate Decreased (Normal)
[2019-08-11 01:32] LABS: Albumin/Globulin Ratio 1.3 (1.1-2.2); Bilirubin,Direct 0.2 mg/dL (0.0-0.2); Bilirubin,Indirect 0.5 mg/dL (0.0-1.0); Bilirubin,Total 0.7 mg/dL (0.3-1.0); Calcium 7.4 mg/dL (8.6-10.3); Globulin 2.3 g/dL (2.4-3.5); Potassium 2.8 mEq/L (3.5-5.1); Total Protein 5.3 g/dL (6.4-8.9)
[2019-08-11] MEDS ORDERED: Ondansetron 4 MG/2 ML VIAL IVP STA (02:04)
[2019-08-11] MEDS ORDERED: *HR* FentaNYL (PF) 100 MCG/2 ML VIAL IVP ONE (02:04)
[2019-08-11] MEDS ORDERED: Potassium Chloride Elixir 20 MEQ/15 ML UDC PO ONE (02:28)
[2019-08-11] MEDS ORDERED: Naloxone 0.4 MG/ML INJ IVP PRN (04:07)
[2019-08-11] MEDS ORDERED: *HR* HYDROcodone/Acet 5/325 mg TABLET PO PRN (04:07)
[2019-08-11] MEDS ORDERED: Cefepime HCl 1,000 MG in Water for inj. (sterile) 10 ML IVP ONE ×2 (04:45→06:37)
[2019-08-11] MEDS ORDERED: Vancomycin 1,500 MG/265 ML IV.SOLN IVPB ONE (05:00)
[2019-08-11] MEDS ORDERED: *HR* Heparin 10,000 UNIT/10 ML VIAL IV PRN (07:11)
[2019-08-11] MEDS ORDERED: 0.9 % Sodium Chloride 250 ML IVC PRN (07:11)
[2019-08-11] MEDS ORDERED: 0.9 % Sodium Chloride 1,000 ML PRIME SCH (07:15)
[2019-08-11] MEDS: Ondansetron ODT 4 MG TAB.RAPDIS SL PRN (07:39)
[2019-08-11] MEDS: Acetaminophen 325 MG TABLET PO PRN ×2 (07:40→23:50)
[2019-08-11] MEDS ORDERED: Vancomycin 1 EACH in 0.9 % Sodium Chloride 250 ML IVPB SCH (08:00)
[2019-08-11] MEDS: ALPRAZolam 0.5 MG TABLET PO PRN ×2 (12:52→21:18)
[2019-08-11] MEDS: NIFEdipine XL (24 HR) 30 MG TAB.ER.24 PO SCH (12:52)
[2019-08-11] MEDS: carvediloL 25 MG TABLET PO SCH ×2 (12:52→21:14)
[2019-08-11] MEDS: Nystatin SUSP 5 ML UD.LIQ PO SCH ×3 (13:33→21:15)
[2019-08-11] MEDS ORDERED: Isovue-370 500 ML BOTTLE PO ONE (14:30)
[2019-08-11 15:04] LABS: Hematocrit 21.7 % (35.3-44.9)
[2019-08-11 15:05] LABS: Hemoglobin 7.5 g/dL (11.5-15.4)
[2019-08-11] MEDS: *HR* OxyCODONE/APAP 5/325 TABLET PO PRN ×2 (15:06→23:30)
[2019-08-11] MEDS: ISAVUCONAZONIUM SULFATE 186 MG PO SCH ×2 (15:07→21:14)
[2019-08-11] MEDS: Calcium Acetate 667 MG CAPSULE PO SCH (17:22)
[2019-08-11] MEDS: Cefepime HCl 1,000 MG in Water for inj. (sterile) 10 ML IVP SCH (17:23)
[2019-08-11] MEDS: *HR* Heparin 5,000 UNIT/ML VIAL SQ SCH (17:23)
[2019-08-11] MEDS ORDERED: Cefepime HCl 2,000 MG in Water for inj. (sterile) 20 ML IVP SCH (18:00)
[2019-08-12] MEDS: *HR* Heparin 5,000 UNIT/ML VIAL SQ SCH ×2 (05:03→17:27)
[2019-08-12 05:31] LABS: Immature Granulocytes % 0.3 % (0-4); Red Cell Distribution Width 16.6 % (11.5-14.5)
[2019-08-12 05:32] LABS: Basophils % 0.3 %; Eosinophils % 1.2 %; Hematocrit 20.7 % (35.3-44.9); Hemoglobin 7.3 g/dL (11.5-15.4); Immature Platelets 3.8 % (1.1-6.1); Lymphocytes # 0.6 K/mcL (0.6-4.6); Lymphocytes % 16.7 %; Mean Corpuscular HGB Conc 35.3 g/dL (31.6-35.5); Mean Corpuscular Hemoglobin 31.9 pg (28.0-33.3); Mean Corpuscular Volume 90.4 fL (83.0-100.0); Mean Platelet Volume 11.1 fL (9.4-12.4); Monocytes # 0.4 K/mcL (0.0-1.3); Monocytes % 10.1 %; Neutrophils # 2.5 K/mcL (1.6-8.9); Red Blood Count 2.29 M/mcL (3.82-4.97); Segmented Neutrophils % 71.4 %; White Blood Count 3.5 K/mcL (4.3-11.1)
[2019-08-12 05:35] LABS: Platelet Count 83 K/mcL (140-400)
[2019-08-12 05:42] LABS: INR 1.2
[2019-08-12 05:56] LABS: Calcium 7.5 mg/dL (8.6-10.3); Potassium 4.5 mEq/L (3.5-5.1)
[2019-08-12] MEDS: *HR* OxyCODONE/APAP 5/325 TABLET PO PRN ×2 (08:20→10:23)
[2019-08-12] MEDS: NIFEdipine XL (24 HR) 30 MG TAB.ER.24 PO SCH (08:20)
[2019-08-12] MEDS: ALPRAZolam 0.5 MG TABLET PO PRN ×2 (08:20→20:23)
[2019-08-12] MEDS: Calcium Acetate 667 MG CAPSULE PO SCH ×3 (08:21→17:26)
[2019-08-12] MEDS: carvediloL 25 MG TABLET PO SCH ×2 (08:21→19:33)
[2019-08-12] MEDS: Nystatin SUSP 5 ML UD.LIQ PO SCH ×4 (08:21→19:34)
[2019-08-12] MEDS: ISAVUCONAZONIUM SULFATE 186 MG PO SCH (08:21)
[2019-08-12] MEDS ORDERED: Sennosides/Docusate Sodium TABLET PO PRN (08:40)
[2019-08-12] MEDS ORDERED: predniSONE 10 MG TABLET PO SCH (09:00)
[2019-08-12] MEDS ORDERED: Cyanocobalamin (B-12) 1,000 MCG TABLET PO SCH (09:00)
[2019-08-12] MEDS: Sennosides/Docusate Sodium TABLET PO SCH ×2 (10:14→19:33)
[2019-08-12] MEDS ORDERED: *HR* OxyCODONE Immed Rel 5 MG TABLET PO PRN (13:16)
[2019-08-12] MEDS ORDERED: *HR* Promethazine 25 MG/ML VIAL IVP PRN (13:18)
[2019-08-12] MEDS ORDERED: Promethazine 25 MG in 0.9 % Sodium Chloride 50 ML IVPB PRN (13:25)
[2019-08-12] MEDS: *HR* OxyCODONE Immed Rel 5 MG TABLET PO PRN ×2 (13:42→19:33)
[2019-08-12] MEDS ORDERED: *HR* HYDROmorphone PF 0.5 MG/0.5 ML SYRINGE IVP PRN (13:50)
[2019-08-12] MEDS: Ondansetron ODT 4 MG TAB.RAPDIS SL PRN (17:26)
[2019-08-12] MEDS: Cefepime HCl 1,000 MG in Water for inj. (sterile) 10 ML IVP SCH (17:27)
[2019-08-12] MEDS ORDERED: Vancomycin 500 MG in 0.9 % Sodium Chloride Mini Bag 100 ML IVPB ONE (18:00)
[2019-08-12 19:40] VITALS: BP 147/79
[2019-08-12] MEDS ORDERED: Aminoglycoside Consult 1 EACH MC ONE (20:58)
== END 2019-08-12 20:59 | disposition other institution (70) ==
LOC: 2ANU 23:54 → EMEROOARM 23:54 → SUATTDRO 08-11 03:56 → 2ANU 08-11 04:27
PROVIDERS: ADMIT Internal Medicine; ATTEND Student in an Organized Health Care Education/Training Program

== ENCOUNTER 2019-11-24 19:11 | Observation (INO) ==
[2019-11-24 19:40] LABS: Basophils % 0.2 %; Eosinophils # 0.1 K/mcL (0.0-0.6); Hematocrit 18.7 % (35.3-44.9); Hemoglobin 6.5 g/dL (11.5-15.4); Immature Granulocytes % 0.8 % (0-4); Lymphocytes # 0.5 K/mcL (0.6-4.6); Mean Corpuscular HGB Conc 34.8 g/dL (31.6-35.5); Mean Platelet Volume 10.2 fL (9.4-12.4); Monocytes # 0.3 K/mcL (0.0-1.3); Monocytes % 6.8 %; Neutrophils # 4.1 K/mcL (1.6-8.9); Platelet Count 155 K/mcL (140-400); Segmented Neutrophils % 82.2 %
[2019-11-24 19:53] LABS: Prothrombin Time 11.4 Seconds (9.4-12.1)
[2019-11-24 19:56] LABS: Activated Partial Thrombo Time 31.9 Seconds (26.0-36.0)
[2019-11-24 20:04] LABS: Alanine Aminotransferase 14 Units/L (7-52); Albumin 3.6 g/dL (3.5-5.7); Albumin/Globulin Ratio 1.4 (1.1-2.2); Alkaline Phosphatase 62 Units/L (34-104); Aspartate Amino Transferase 9 Units/L (13-39); BUN/Creatinine Ratio 7 (6-26); Bilirubin,Direct 0.2 mg/dL (0.0-0.2); Bilirubin,Indirect 0.6 mg/dL (0.0-1.0); Bilirubin,Total 0.8 mg/dL (0.3-1.0); Blood Urea Nitrogen 49 mg/dL (6-20); Calcium 7.8 mg/dL (8.6-10.3); Carbon Dioxide 23 mEq/L (23-29); Chloride 90 mEq/L (98-107); Creatine Kinase 31 Units/L (30-223); Globulin 2.6 g/dL (2.4-3.5); Glucose 202 mg/dL (70-105); Osmolality,Calculated 287 (280-300); Potassium 3.9 mEq/L (3.5-5.1); Sodium 129 mEq/L (136-145); Total Protein 6.2 g/dL (6.4-8.9); Troponin I < 0.03 ng/mL (< 0.04); eGFR For African Americans 8 (> 60); eGFR For Non-African Americans 7 (> 60)
[2019-11-24 20:14] LABS: Bacteria,Urine Moderate per hpf (None-Few); Bilirubin,Urine Negative (Negative); Blood,Urine Moderate (Negative); Budding Yeast,Urine Many per hpf (None Seen); Clarity,Urine Ex.Turbid (Clear); Color,Urine Light-Orange (Yellow); Glucose,Urine (UA) Normal (Normal); Ketones,Urine Negative (Negative); Leukocyte Esterase,Urine Large (Negative); Nitrite,Urine Negative (Negative); Protein,Urine >=300 mg/dL (Neg-Trace); Specific Gravity,Urine 1.015 (1.010-1.025); Squamous Epithelial Cell,Urine Moderate per hpf (None-Few); Transitional Epi Cells,Urine Moderate per hpf (None-Few); Urobilinogen,Urine Normal (Normal); WBC,Urine TNTC per hpf (0-3)
[2019-11-24] MEDS ORDERED: cefTRIAXone 1,000 MG in Water for inj. (sterile) 10 ML IVP ONE (21:07)
[2019-11-24] MEDS ORDERED: Azithromycin 500 MG in 0.9 % Sodium Chloride 250 ML IVPB ONE (21:08)
[2019-11-24] MEDS ORDERED: Vancomycin 1,500 MG/265 ML IV.SOLN IVPB ONE (22:00)
[2019-11-24] MEDS ORDERED: 0.9 % Sodium Chloride 250 ML ONE (22:25)
[2019-11-24 23:44] LABS: Adenovirus Not Detected (Not Detect); Bordetella Pertussis Not Detected (Not Detect); Chlamydophila pneumoniae Not Detected (Not Detect); Coronavirus 229E Not Detected (Not Detect); Coronavirus HKU1 Not Detected (Not Detect); Coronavirus NL63 Not Detected (Not Detect); Coronavirus OC43 Not Detected (Not Detect); Human Metapneumovirus Not Detected (Not Detect); Human Rhinovirus/Enterovirus Not Detected (Not Detect); Influenza A Subtype 2009 H1 Not Detected (Not Detect); Influenza B Not Detected (Not Detect); Mycoplasma pneumoniae Not Detected (Not Detect); Parainfluenza Virus 1 Not Detected (Not Detect); Parainfluenza Virus 2 Not Detected (Not Detect); Parainfluenza Virus 3 Not Detected (Not Detect); Parainfluenza Virus 4 Not Detected (Not Detect); Respiratory Syncytial Virus Not Detected (Not Detect)
[2019-11-25 02:59] VITALS: BP 161/133
[2019-11-25] MEDS ORDERED: Ondansetron 4 MG/2 ML VIAL IVP PRN (03:15)
[2019-11-25] MEDS ORDERED: Naloxone 0.4 MG/ML INJ IVP PRN (03:15)
== END 2019-11-25 04:45 | disposition short-term general hospital (02) ==
LOC: 2ANU 19:11 → EMEROOARM 19:11 → 2ANU 11-25 03:16
PROVIDERS: ADMIT Internal Medicine; ATTEND Internal Medicine

== ENCOUNTER 2020-03-08 23:50 | Observation (INO) ==
[2020-03-09] MEDS ORDERED: Acetaminophen 325 MG TABLET PO ONE (00:44)
[2020-03-09 02:29] LABS: Adenovirus Not Detected (Not Detect); Bordetella Pertussis Not Detected (Not Detect); Chlamydophila pneumoniae Not Detected (Not Detect); Coronavirus 229E Not Detected (Not Detect); Coronavirus HKU1 Not Detected (Not Detect); Coronavirus NL63 Not Detected (Not Detect); Coronavirus OC43 Not Detected (Not Detect); Human Metapneumovirus Not Detected (Not Detect); Human Rhinovirus/Enterovirus Not Detected (Not Detect); Influenza A Subtype 2009 H1 Not Detected (Not Detect); Influenza B Not Detected (Not Detect); Mycoplasma pneumoniae Not Detected (Not Detect); Parainfluenza Virus 1 Not Detected (Not Detect); Parainfluenza Virus 2 Not Detected (Not Detect); Parainfluenza Virus 3 Not Detected (Not Detect); Parainfluenza Virus 4 Not Detected (Not Detect); Respiratory Syncytial Virus Not Detected (Not Detect); SARS-CoV-2 Not Detected (Not Detect)
[2020-03-09 02:38] LABS: Mean Corpuscular Volume 90.1 fL (83.0-100.0)
[2020-03-09 02:40] LABS: Basophils % 0.6 %; Eosinophils % 1.1 %; Hematocrit 18.3 % (35.3-44.9); Hemoglobin 6.1 g/dL (11.5-15.4); Immature Granulocytes % 0.6 % (0-4); Immature Platelets 1.7 % (1.1-6.1); Lymphocytes # 0.3 K/mcL (0.6-4.6); Mean Corpuscular HGB Conc 33.3 g/dL (31.6-35.5); Mean Platelet Volume 9.4 fL (9.4-12.4); Monocytes # 0.2 K/mcL (0.0-1.3); Monocytes % 11.6 %; Neutrophils # 1.3 K/mcL (1.6-8.9); Platelet Count 111 K/mcL (140-400); Red Blood Count 2.03 M/mcL (3.82-4.97); Red Cell Distribution Width 14.2 % (11.5-14.5); Segmented Neutrophils % 70.1 %; White Blood Count 1.8 K/mcL (4.3-11.1)
[2020-03-09 02:52] LABS: Large Platelets Present (Not Present); Platelet Estimate Slight Decrease (Normal)
[2020-03-09 03:12] LABS: Calcium 7.7 mg/dL (8.6-10.3); Potassium 3.8 mEq/L (3.5-5.1); Troponin I 0.04 ng/mL (< 0.04)
[2020-03-09] MEDS ORDERED: cefTRIAXone 1,000 MG in 0.9 % Sodium Chloride Mini Bag 100 ML IVPB ONE (03:14)
[2020-03-09] MEDS ORDERED: Azithromycin 500 MG in 0.9 % Sodium Chloride 250 ML IVPB ONE (03:15)
[2020-03-09] MEDS ORDERED: Furosemide 40 MG/4 ML VIAL IVP ONE (03:23)
[2020-03-09] MEDS ORDERED: Ondansetron 4 MG/2 ML VIAL ONE (03:47)
[2020-03-09] MEDS ORDERED: Ondansetron 4 MG/2 ML VIAL IVP STA (03:50)
[2020-03-09] MEDS ORDERED: Insulin Human Regular 10 UNIT in 0.9 % Sodium Chloride 10 ML IV ONE ×2 (04:15→05:41)
[2020-03-09] MEDS ORDERED: Prochlorperazine 10 MG/2 ML VIAL IVP PRN (05:39)
[2020-03-09] MEDS ORDERED: 0.9 % Sodium Chloride 250 ML ONE (05:52)
[2020-03-09] MEDS ORDERED: Naloxone 0.4 MG/ML INJ IVP PRN (06:45)
[2020-03-09] MEDS ORDERED: *HR* Promethazine 25 MG/ML VIAL IM PRN (06:50)
[2020-03-09] MEDS ORDERED: Ondansetron 4 MG/2 ML VIAL IVP PRN (06:50)
[2020-03-09] MEDS ORDERED: Dextrose Gel 15 GM/37.5 ML TUBE PO PRN ×2 (06:51)
[2020-03-09] MEDS ORDERED: D5% in Water 1,000 ML IVC PRN (06:51)
[2020-03-09] MEDS ORDERED: *HR* Dextrose 50 % in Water (Vial) 50 ML VIAL IVP PRN (06:51)
[2020-03-09] MEDS ORDERED: Vancomycin 1 EACH in 0.9 % Sodium Chloride 250 ML IVPB PRN (07:00)
[2020-03-09] MEDS ORDERED: Cefepime HCl 1,000 MG in Water for inj. (sterile) 10 ML IVP SCH (08:00)
[2020-03-09] MEDS ORDERED: Doxycycline 100 MG in 0.9 % Sodium Chloride Mini Bag 100 ML IVPB SCH (08:00)
[2020-03-09] MEDS ORDERED: Insulin LISPRO 300 UNITS/3 ML VIAL SQ SCH ×2 (08:00)
[2020-03-09] MEDS ORDERED: Vancomycin 1,500 MG/265 ML IV.SOLN IVPB ONE (08:04)
[2020-03-09] MEDS ORDERED: Insulin Regular, Human 100 UNIT/ML IV PRN (08:13)
[2020-03-09] MEDS ORDERED: D5% in 0.45% NACL w KCl 20 MEQ/1,000 ML MLS IVC PRN (08:13)
[2020-03-09] MEDS ORDERED: Insulin Human Regular 100 UNIT in 0.9 % Sodium Chloride 100 ML IVC SCH (08:15)
[2020-03-09] MEDS ORDERED: 0.45 % Sodium Chloride w/KCl 20 MEQ/1,000 ML MLS IVC SCH ×3 (08:15→10:18)
[2020-03-09] MEDS ORDERED: 0.9 % Sodium Chloride 250 ML IVC PRN (08:24)
[2020-03-09] MEDS ORDERED: 0.9 % Sodium Chloride 1,000 ML PRIME SCH (08:30)
[2020-03-09 09:05] LABS: VBG HCO3 28 mEq/L (21-27); VBG PCO2 42 mmHg (41-51); VBG PH 7.43 pH Units (7.32-7.42); VBG PO2 159 mmHg (25-50)
[2020-03-09 09:10] LABS: Basophils % 0.9 %; Eosinophils % 1.3 %; Hematocrit 18.9 % (35.3-44.9); Hemoglobin 6.5 g/dL (11.5-15.4); Lymphocytes # 0.4 K/mcL (0.6-4.6); Lymphocytes % 17.9 %; Mean Corpuscular HGB Conc 34.4 g/dL (31.6-35.5); Mean Platelet Volume 9.3 fL (9.4-12.4); Monocytes # 0.4 K/mcL (0.0-1.3); Monocytes % 16.2 %; Neutrophils # 1.5 K/mcL (1.6-8.9); Platelet Count 114 K/mcL (140-400); Red Cell Distribution Width 14.2 % (11.5-14.5); Segmented Neutrophils % 63.7 %; White Blood Count 2.3 K/mcL (4.3-11.1)
[2020-03-09 09:19] LABS: Calcium 7.7 mg/dL (8.6-10.3); Potassium 3.5 mEq/L (3.5-5.1)
[2020-03-09] MEDS: Acetaminophen 325 MG TABLET PO PRN ×2 (09:25→15:14)
[2020-03-09 10:23] LABS: Estimated Average Glucose 183 mg/dl
[2020-03-09] MEDS ORDERED: Insulin DETEMIR 100 UNIT/ML X5UNITS SUBQ ONE (10:31)
[2020-03-09] MEDS: 0.9 % Sodium Chloride 1,000 ML IVC SCH ×4 (11:41→12:36)
[2020-03-09] MEDS ORDERED: Insulin LISPRO 300 UNITS/3 ML VIAL SUBQ SCH (12:00)
[2020-03-09 12:18] VITALS: BP 158/69
[2020-03-09] MEDS ORDERED: Insulin DETEMIR 100 UNIT/ML X5UNITS SQ SCH (21:00)
== END 2020-03-09 15:36 | disposition short-term general hospital (02) ==
LOC: EMEROOARM 23:50 → 2ANU 23:50 → CDU 23:50 → SUATTDRO 03-09 06:46 → CDU 03-09 07:25
PROVIDERS: ADMIT Internal Medicine; ATTEND Internal Medicine

== ENCOUNTER 2020-03-22 15:06 | Observation (INO) ==
[2020-03-22 17:54] LABS: Eosinophils % 0.4 %; Hematocrit 15.8 % (35.3-44.9); Mean Corpuscular Volume 88.3 fL (83.0-100.0); Red Blood Count 1.79 M/mcL (3.82-4.97); Red Cell Distribution Width 12.6 % (11.5-14.5)
[2020-03-22 17:55] LABS: Basophils % 0.4 %; Immature Granulocytes % 0.4 % (0-4); Immature Platelets 2.5 % (1.1-6.1); Lymphocytes # 0.2 K/mcL (0.6-4.6); Lymphocytes % 8.8 %; Mean Corpuscular HGB Conc 34.8 g/dL (31.6-35.5); Mean Corpuscular Hemoglobin 30.7 pg (28.0-33.3); Mean Platelet Volume 9.6 fL (9.4-12.4); Monocytes # 0.1 K/mcL (0.0-1.3); Monocytes % 5.3 %; Platelet Count 102 K/mcL (140-400); Segmented Neutrophils % 84.7 %; White Blood Count 2.3 K/mcL (4.3-11.1)
[2020-03-22 18:16] LABS: Hemoglobin 5.5 g/dL (11.5-15.4)
[2020-03-22] MEDS ORDERED: Isovue-370 500 ML BOTTLE IVP ONE (18:41)
[2020-03-22] MEDS ORDERED: 0.9 % Sodium Chloride 250 ML ONE (18:49)
[2020-03-22 19:10] LABS: Calcium 7.3 mg/dL (8.6-10.3); Potassium 4.9 mEq/L (3.5-5.1); Troponin I 0.05 ng/mL (< 0.04)
[2020-03-22 19:16] LABS: VBG PH 7.34 pH Units (7.32-7.42)
[2020-03-22] MEDS ORDERED: Insulin Human Regular 100 UNIT in 0.9 % Sodium Chloride 100 ML IVC SCH ×2 (19:30→19:45)
[2020-03-22] MEDS ORDERED: 0.9 % Sodium Chloride w KCl 20 MEQ/1,000 ML MLS IVC SCH (19:45)
[2020-03-23] MEDS ORDERED: Naloxone 0.4 MG/ML INJ IVP PRN ×2 (01:16→02:22)
[2020-03-23] MEDS ORDERED: Ondansetron ODT 4 MG TAB.RAPDIS SL PRN (02:22)
[2020-03-23] MEDS ORDERED: D5% in 0.45% NACL 1,000 ML IVC PRN (02:26)
[2020-03-23] MEDS ORDERED: Insulin Regular, Human 100 UNIT/ML IV PRN (02:26)
[2020-03-23] MEDS ORDERED: D5% in 0.45% NACL w KCl 20 MEQ/1,000 ML MLS IVC PRN (02:26)
[2020-03-23] MEDS ORDERED: *HR* Dextrose 50 % in Water (Vial) 50 ML VIAL IVP PRN (02:26)
[2020-03-23] MEDS ORDERED: Insulin Human Regular 100 UNIT in 0.9 % Sodium Chloride 100 ML IVC SCH (02:30)
[2020-03-23] MEDS ORDERED: 0.9 % Sodium Chloride 500 ML ONE (03:21)
[2020-03-23 04:08] LABS: Calcium 7.1 mg/dL (8.6-10.3)
[2020-03-23] MEDS ORDERED: Insulin LISPRO 300 UNITS/3 ML VIAL SUBQ ONE (04:34)
[2020-03-23] MEDS ORDERED: 0.9 % Sodium Chloride w KCl 20 MEQ/1,000 ML MLS IVC SCH (05:20)
[2020-03-23 06:24] VITALS: BP 173/84
== END 2020-03-23 06:20 | disposition short-term general hospital (02) ==
LOC: EMEROOARM 15:06 → 2NNU 15:06
PROVIDERS: ADMIT Student in an Organized Health Care Education/Training Program; ATTEND Student in an Organized Health Care Education/Training Program

== ENCOUNTER 2020-06-02 18:54 | Observation (INO) ==
[2020-06-02] MEDS ORDERED: Ondansetron 4 MG/2 ML VIAL IVP ONE (19:55)
[2020-06-02] MEDS ORDERED: 0.9 % Sodium Chloride 1,000 ML IVC ONE (19:55)
[2020-06-02 20:22] LABS: Basophils % 0.2 %; Eosinophils % 0.8 %; Hematocrit 17.7 % (35.3-44.9); Hemoglobin 6.2 g/dL (11.5-15.4); Immature Granulocytes % 0.6 % (0-4); Lymphocytes # 0.3 K/mcL (0.6-4.6); Lymphocytes % 5.9 %; Mean Corpuscular Hemoglobin 30.4 pg (28.0-33.3); Mean Corpuscular Volume 86.8 fL (83.0-100.0); Mean Platelet Volume 9.4 fL (9.4-12.4); Monocytes # 0.5 K/mcL (0.0-1.3); Monocytes % 8.9 %; Neutrophils # 4.2 K/mcL (1.6-8.9); Platelet Count 110 K/mcL (140-400); Red Blood Count 2.04 M/mcL (3.82-4.97); Red Cell Distribution Width 14.4 % (11.5-14.5); Segmented Neutrophils % 83.6 %; White Blood Count 5.1 K/mcL (4.3-11.1)
[2020-06-02 20:43] LABS: BUN/Creatinine Ratio 8 (6-26); Blood Urea Nitrogen 29 mg/dL (6-20); Calcium 8.6 mg/dL (8.6-10.3); Carbon Dioxide 29 mEq/L (23-29); Chloride 89 mEq/L (98-107); Glucose 151 mg/dL (70-105); Osmolality,Calculated 271 (280-300); Potassium 4.4 mEq/L (3.5-5.1); Sodium 126 mEq/L (136-145); Troponin I < 0.03 ng/mL (< 0.04); eGFR For African Americans 17 (> 60); eGFR For Non-African Americans 14 (> 60)
[2020-06-02 21:03] LABS: Alanine Aminotransferase 11 Units/L (7-52); Albumin 3.3 g/dL (3.5-5.7); Albumin/Globulin Ratio 1.2 (1.1-2.2); Alkaline Phosphatase 54 Units/L (34-104); Aspartate Amino Transferase 13 Units/L (13-39); Bilirubin,Indirect 0.4 mg/dL (0.0-1.0); Bilirubin,Total 0.4 mg/dL (0.3-1.0); Globulin 2.7 g/dL (2.4-3.5); Lipase 12 Units/L (11-82)
[2020-06-02 21:04] LABS: INR 1.1; Prothrombin Time 12.8 Seconds (9.4-12.1)
[2020-06-02 21:07] LABS: Activated Partial Thrombo Time 54.9 Seconds (26.0-36.0)
[2020-06-02] MEDS ORDERED: Morphine Sulfate 2 MG/ML SYRINGE IVP ONE (21:50)
[2020-06-02] MEDS ORDERED: 0.9 % Sodium Chloride 250 ML ONE (22:57)
[2020-06-03] MEDS ORDERED: Ondansetron 4 MG/2 ML VIAL IVP PRN (00:47)
[2020-06-03] MEDS ORDERED: Naloxone 0.4 MG/ML INJ IVP PRN (00:47)
[2020-06-03] MEDS ORDERED: Dextrose Gel 15 GM/37.5 ML TUBE PO PRN ×2 (01:07)
[2020-06-03] MEDS ORDERED: D5% in Water 1,000 ML IVC PRN (01:07)
[2020-06-03] MEDS ORDERED: *HR* Dextrose 50 % in Water (Vial) 50 ML VIAL IVP PRN (01:07)
[2020-06-03] MEDS: Insulin LISPRO 300 UNITS/3 ML VIAL SUBQ SCH ×3 (01:46→12:16)
[2020-06-03] MEDS ORDERED: 0.9 % Sodium Chloride 250 ML ONE (02:38)
[2020-06-03] MEDS: *HR* HYDROcodone/Acet 5/325 mg TABLET PO PRN ×2 (02:52→08:16)
[2020-06-03] MEDS ORDERED: *HR* Heparin 5,000 UNIT/ML VIAL SQ SCH (06:00)
[2020-06-03] MEDS ORDERED: carvediloL 25 MG TABLET PO SCH (08:00)
[2020-06-03] MEDS: Calcium Acetate 667 MG CAPSULE PO SCH ×2 (08:11→12:15)
[2020-06-03 08:50] LABS: Hematocrit 23.6 % (35.3-44.9); Immature Platelets 1.7 % (1.1-6.1); Mean Corpuscular HGB Conc 33.9 g/dL (31.6-35.5); Mean Corpuscular Hemoglobin 30.1 pg (28.0-33.3); Mean Corpuscular Volume 88.7 fL (83.0-100.0); Mean Platelet Volume 9.6 fL (9.4-12.4); Red Blood Count 2.66 M/mcL (3.82-4.97); Red Cell Distribution Width 14.6 % (11.5-14.5); White Blood Count 4.9 K/mcL (4.3-11.1)
[2020-06-03] MEDS ORDERED: calcitrioL 0.25 MCG CAPSULE PO SCH (09:00)
[2020-06-03] MEDS ORDERED: cloNIDine HCL 0.1 MG TABLET PO SCH (09:00)
[2020-06-03] MEDS ORDERED: Cyanocobalamin (B-12) 1,000 MCG TABLET PO SCH (09:00)
[2020-06-03] MEDS ORDERED: predniSONE 10 MG TABLET PO SCH (09:00)
[2020-06-03] MEDS ORDERED: hydrALAZINE 25 MG TABLET PO SCH (09:00)
[2020-06-03 09:03] LABS: Calcium 8.7 mg/dL (8.6-10.3); Potassium 4.8 mEq/L (3.5-5.1)
[2020-06-03 10:31] LABS: Hepatitis B Surface Antibody 148.32 mIU/mL
[2020-06-03 10:42] LABS: Hepatitis B Surface Antigen Nonreactive (Nonreactive)
[2020-06-03 11:46] VITALS: BP 162/81
== END 2020-06-03 13:00 | disposition home or self-care (01) ==
LOC: EMEROOARM 18:54 → 2ANU 18:54 → SUATTDRO 23:58 → 2ANU 06-03 00:53
PROVIDERS: ADMIT Internal Medicine; ATTEND Internal Medicine

== ENCOUNTER 2020-06-14 17:34 | Observation (INO) ==
[2020-06-14] MEDS ORDERED: 0.9 % Sodium Chloride 1,000 ML IVC ONE (19:42)
[2020-06-14] MEDS ORDERED: Ondansetron 4 MG/2 ML VIAL IVP ONE (19:42)
[2020-06-14] MEDS ORDERED: *HR* FentaNYL (PF) 100 MCG/2 ML VIAL IVP ONE (19:43)
[2020-06-14] MEDS ORDERED: Isovue-370 500 ML BOTTLE IVP ONE (19:43)
[2020-06-14 20:37] LABS: Basophils % 0.2 %; Eosinophils # 0.1 K/mcL (0.0-0.6); Eosinophils % 1.9 %; Hematocrit 18.4 % (35.3-44.9); Hemoglobin 6.6 g/dL (11.5-15.4); Immature Granulocytes % 0.2 % (0-4); Lymphocytes # 0.4 K/mcL (0.6-4.6); Lymphocytes % 9.9 %; Mean Corpuscular HGB Conc 35.9 g/dL (31.6-35.5); Mean Corpuscular Hemoglobin 31.3 pg (28.0-33.3); Mean Corpuscular Volume 87.2 fL (83.0-100.0); Mean Platelet Volume 9.1 fL (9.4-12.4); Monocytes # 0.5 K/mcL (0.0-1.3); Monocytes % 11.8 %; Neutrophils # 3.1 K/mcL (1.6-8.9); Platelet Count 104 K/mcL (140-400); Red Blood Count 2.11 M/mcL (3.82-4.97); Red Cell Distribution Width 16.2 % (11.5-14.5); White Blood Count 4.1 K/mcL (4.3-11.1)
[2020-06-14 21:01] LABS: Albumin 3.5 g/dL (3.5-5.7); Albumin/Globulin Ratio 1.3 (1.1-2.2); Bilirubin,Direct 0.1 mg/dL (0.0-0.2); Bilirubin,Indirect 0.3 mg/dL (0.0-1.0); Bilirubin,Total 0.4 mg/dL (0.3-1.0); Calcium 8.7 mg/dL (8.6-10.3); Globulin 2.6 g/dL (2.4-3.5); Potassium 4.6 mEq/L (3.5-5.1); Total Protein 6.1 g/dL (6.4-8.9)
[2020-06-14] MEDS ORDERED: Morphine Sulfate 2 MG/ML SYRINGE IVP ONE (23:07)
[2020-06-14] MEDS ORDERED: Melatonin 3 MG TABLET PO PRN (23:10)
[2020-06-14] MEDS ORDERED: Naloxone 0.4 MG/ML INJ IVP PRN (23:10)
[2020-06-14] MEDS ORDERED: Acetaminophen 325 MG TABLET PO PRN (23:10)
[2020-06-14] MEDS ORDERED: 0.9 % Sodium Chloride 1,000 ML IVC SCH ×2 (23:15→23:55)
[2020-06-15] MEDS ORDERED: *HR* Dextrose 50 % in Water (Vial) 50 ML VIAL IVP PRN (00:46)
[2020-06-15] MEDS ORDERED: D5% in Water 1,000 ML IVC PRN (00:46)
[2020-06-15] MEDS ORDERED: Dextrose Gel 15 GM/37.5 ML TUBE PO PRN ×2 (00:46)
[2020-06-15 01:16] LABS: Hematocrit 18.8 % (35.3-44.9); Hemoglobin 6.6 g/dL (11.5-15.4); Immature Platelets 1.4 % (1.1-6.1); Mean Corpuscular HGB Conc 35.1 g/dL (31.6-35.5); Mean Corpuscular Hemoglobin 30.8 pg (28.0-33.3); Mean Corpuscular Volume 87.9 fL (83.0-100.0); Red Blood Count 2.14 M/mcL (3.82-4.97); Red Cell Distribution Width 16.3 % (11.5-14.5); White Blood Count 3.8 K/mcL (4.3-11.1)
[2020-06-15 01:45] LABS: Calcium 8.4 mg/dL (8.6-10.3); Potassium 4.6 mEq/L (3.5-5.1)
[2020-06-15] MEDS: hydrALAZINE 25 MG TABLET PO SCH ×3 (03:23→20:37)
[2020-06-15] MEDS: carvediloL 25 MG TABLET PO SCH ×2 (03:23→17:42)
[2020-06-15] MEDS ORDERED: Pantoprazole 40 MG VIAL IVP ONE (04:00)
[2020-06-15] MEDS: ALPRAZolam 0.5 MG TABLET PO PRN ×2 (05:46→20:37)
[2020-06-15] MEDS ORDERED: 0.9 % Sodium Chloride 250 ML IVC PRN (07:13)
[2020-06-15] MEDS ORDERED: 0.9 % Sodium Chloride 1,000 ML PRIME SCH (07:15)
[2020-06-15] MEDS: Ondansetron 4 MG/2 ML VIAL IVP PRN (08:09)
[2020-06-15] MEDS: Insulin LISPRO 300 UNITS/3 ML VIAL SUBQ SCH ×3 (08:14→17:43)
[2020-06-15 09:17] LABS: Calcium 7.5 mg/dL (8.6-10.3); Potassium 4.2 mEq/L (3.5-5.1)
[2020-06-15] MEDS: Metoclopramide 10 MG/2 ML VIAL IVP PRN (12:59)
[2020-06-15 16:07] LABS: Hematocrit 26.6 % (35.3-44.9)
[2020-06-15 16:08] LABS: Hemoglobin 9.2 g/dL (11.5-15.4)
[2020-06-15] MEDS ORDERED: Calcium Acetate 667 MG CAPSULE PO PRN (17:30)
[2020-06-15] MEDS: cloNIDine HCL 0.1 MG TABLET PO SCH (20:37)
[2020-06-15] MEDS: polyethylene glycoL 3350 17 GM POWD.PACK PO PRN (20:47)
[2020-06-15] MEDS ORDERED: Insulin LISPRO 300 UNITS/3 ML VIAL SUBQ SCH (21:45)
[2020-06-16 03:06] LABS: Hematocrit 26.1 % (35.3-44.9); Hemoglobin 9.1 g/dL (11.5-15.4); Mean Corpuscular HGB Conc 34.9 g/dL (31.6-35.5); Mean Corpuscular Volume 88.8 fL (83.0-100.0); Mean Platelet Volume 8.7 fL (9.4-12.4); Platelet Count 119 K/mcL (140-400); Red Blood Count 2.94 M/mcL (3.82-4.97); Red Cell Distribution Width 16.2 % (11.5-14.5); White Blood Count 3.8 K/mcL (4.3-11.1)
[2020-06-16 03:28] LABS: Calcium 8.1 mg/dL (8.6-10.3); Potassium 4.6 mEq/L (3.5-5.1)
[2020-06-16] MEDS: Ondansetron 4 MG/2 ML VIAL IVP PRN (06:44)
[2020-06-16] MEDS ORDERED: predniSONE 5 MG TABLET PO SCH (09:00)
[2020-06-16] MEDS ORDERED: NIFEdipine XL (24 HR) 30 MG TAB.ER.24 PO SCH (09:00)
[2020-06-16] MEDS: hydrALAZINE 25 MG TABLET PO SCH (09:44)
[2020-06-16] MEDS: carvediloL 25 MG TABLET PO SCH (09:45)
[2020-06-16] MEDS: cloNIDine HCL 0.1 MG TABLET PO SCH (09:46)
[2020-06-16] MEDS: polyethylene glycoL 3350 17 GM POWD.PACK PO PRN (09:46)
[2020-06-16] MEDS: Calcium Acetate 667 MG CAPSULE PO SCH ×2 (09:46→12:59)
[2020-06-16] MEDS: ALPRAZolam 0.5 MG TABLET PO PRN (09:50)
[2020-06-16] MEDS: Metoclopramide 10 MG/2 ML VIAL IVP PRN (09:51)
[2020-06-16] MEDS: Insulin LISPRO 300 UNITS/3 ML VIAL SUBQ SCH ×2 (10:05→12:59)
[2020-06-16 10:22] VITALS: BP 154/74
== END 2020-06-16 13:06 | disposition home or self-care (01) ==
LOC: EMEROOARM 17:34 → 2ANU 17:34 → SUATTDRO 23:09 → 2ANU 06-15 00:04
PROVIDERS: ADMIT Student in an Organized Health Care Education/Training Program; ATTEND Family Medicine

== ENCOUNTER 2020-07-19 23:20 | Inpatient (IN) ==
[2020-07-20] MEDS ORDERED: Morphine Sulfate 2 MG/ML SYRINGE IVP ONE ×2 (02:09→05:34)
[2020-07-20] MEDS ORDERED: Ondansetron 4 MG/2 ML VIAL IVP ONE ×2 (02:09→05:47)
[2020-07-20 03:32] LABS: Basophils % 0.2 %; Eosinophils % 0.6 %; Hematocrit 19.5 % (35.3-44.9); Hemoglobin 6.6 g/dL (11.5-15.4); Immature Granulocytes % 0.2 % (0-4); Lymphocytes # 0.4 K/mcL (0.6-4.6); Lymphocytes % 7.5 %; Mean Corpuscular HGB Conc 33.8 g/dL (31.6-35.5); Mean Corpuscular Hemoglobin 32.2 pg (28.0-33.3); Mean Platelet Volume 10.2 fL (9.4-12.4); Monocytes # 0.5 K/mcL (0.0-1.3); Monocytes % 11.3 %; Neutrophils # 3.8 K/mcL (1.6-8.9); Platelet Count 103 K/mcL (140-400); Red Blood Count 2.05 M/mcL (3.82-4.97); Red Cell Distribution Width 16.6 % (11.5-14.5); Segmented Neutrophils % 80.2 %; White Blood Count 4.7 K/mcL (4.3-11.1)
[2020-07-20 03:33] LABS: Mean Corpuscular Volume 95.1 fL (83.0-100.0)
[2020-07-20 03:36] LABS: VBG HCO3 19 mEq/L (21-27); VBG PCO2 36 mmHg (41-51); VBG PH 7.33 pH Units (7.32-7.42); VBG PO2 69 mmHg (25-50)
[2020-07-20 03:51] LABS: Albumin 3.4 g/dL (3.5-5.7); Albumin/Globulin Ratio 1.1 (1.1-2.2); Bilirubin,Direct 0.1 mg/dL (0.0-0.2); Bilirubin,Indirect 0.3 mg/dL (0.0-1.0); Bilirubin,Total 0.4 mg/dL (0.3-1.0); Calcium 10.3 mg/dL (8.6-10.3); Globulin 3.1 g/dL (2.4-3.5); Total Protein 6.5 g/dL (6.4-8.9)
[2020-07-20] MEDS ORDERED: Isovue-370 500 ML BOTTLE IVP ONE (04:50)
[2020-07-20] MEDS ORDERED: Metoclopramide 10 MG/2 ML VIAL IVP ONE (07:31)
[2020-07-20] MEDS ORDERED: 0.9 % Sodium Chloride 1,000 ML IVC SCH (08:00)
[2020-07-20] MEDS ORDERED: Naloxone 0.4 MG/ML INJ IVP PRN (08:00)
[2020-07-20] MEDS ORDERED: D5% in Water 1,000 ML IVC PRN (08:03)
[2020-07-20] MEDS ORDERED: Dextrose Gel 15 GM/37.5 ML TUBE PO PRN ×2 (08:03)
[2020-07-20] MEDS ORDERED: *HR* LORazepam 2 MG/ML VIAL IVP PRN (08:22)
[2020-07-20] MEDS ORDERED: Methylnaltrexone 12 MG/0.6 ML SYRINGE SQ ONE (09:00)
[2020-07-20] MEDS: *HR* HYDROmorphone (PF) 1 MG/ML SYRINGE IVP PRN ×3 (09:41→18:50)
[2020-07-20] MEDS: Pantoprazole 40 MG VIAL IVP SCH ×2 (09:41→17:36)
[2020-07-20] MEDS: Bisacodyl 10 MG RECTAL SUPPOSITORY RC SCH ×2 (09:42→20:29)
[2020-07-20] MEDS: Insulin DETEMIR 100 UNIT/ML X5UNITS SUBQ SCH ×2 (10:28→20:28)
[2020-07-20] MEDS: Calcium Acetate 667 MG CAPSULE PO SCH ×3 (11:22→17:37)
[2020-07-20] MEDS: carvediloL 25 MG TABLET PO SCH ×2 (11:22→17:36)
[2020-07-20] MEDS ORDERED: Insulin Human Regular 10 UNIT in 0.9 % Sodium Chloride 10 ML IV ONE ×3 (11:27→16:46)
[2020-07-20] MEDS: Insulin LISPRO 300 UNITS/3 ML VIAL SUBQ SCH ×4 (11:50→23:11)
[2020-07-20] MEDS ORDERED: Insulin LISPRO 300 UNITS/3 ML VIAL SUBQ SCH ×2 (12:00)
[2020-07-20] MEDS ORDERED: 0.9 % Sodium Chloride 250 ML ONE (12:12)
[2020-07-20] MEDS: CLEAR EYES NATURAL TEARS 15 ML BOTTLE BOTH EYES SCH ×3 (13:28→20:29)
[2020-07-20] MEDS: hydrALAZINE 25 MG TABLET PO SCH ×2 (14:53→20:28)
[2020-07-20] MEDS: cloNIDine HCL 0.1 MG TABLET PO SCH ×2 (14:53→20:28)
[2020-07-20] MEDS: Metoclopramide 10 MG/2 ML VIAL IVP PRN (16:34)
[2020-07-20 19:33] LABS: Hemoglobin 7.1 g/dL (11.5-15.4)
[2020-07-21] MEDS: *HR* HYDROmorphone (PF) 1 MG/ML SYRINGE IVP PRN ×4 (00:56→22:05)
[2020-07-21] MEDS: Metoclopramide 10 MG/2 ML VIAL IVP PRN (00:56)
[2020-07-21] MEDS: Insulin LISPRO 300 UNITS/3 ML VIAL SUBQ SCH ×5 (04:01→21:39)
[2020-07-21] MEDS: *HR* Dextrose 50 % in Water (Vial) 50 ML VIAL IVP PRN ×2 (04:01→05:06)
[2020-07-21 04:18] LABS: Basophils % 0.4 %; Eosinophils # 0.2 K/mcL (0.0-0.6); Eosinophils % 3.1 %; Hematocrit 21.2 % (35.3-44.9); Hemoglobin 7.4 g/dL (11.5-15.4); Immature Granulocytes % 0.2 % (0-4); Lymphocytes # 0.5 K/mcL (0.6-4.6); Lymphocytes % 10.2 %; Mean Corpuscular HGB Conc 34.9 g/dL (31.6-35.5); Mean Corpuscular Hemoglobin 31.4 pg (28.0-33.3); Mean Corpuscular Volume 89.8 fL (83.0-100.0); Mean Platelet Volume 9.1 fL (9.4-12.4); Monocytes # 0.7 K/mcL (0.0-1.3); Monocytes % 13.7 %; Neutrophils # 3.7 K/mcL (1.6-8.9); Platelet Count 119 K/mcL (140-400); Red Blood Count 2.36 M/mcL (3.82-4.97); Red Cell Distribution Width 16.7 % (11.5-14.5); Segmented Neutrophils % 72.4 %; White Blood Count 5.1 K/mcL (4.3-11.1)
[2020-07-21 04:39] LABS: Potassium 3.5 mEq/L (3.5-5.1)
[2020-07-21] MEDS: Pantoprazole 40 MG VIAL IVP SCH ×2 (05:07→17:03)
[2020-07-21] MEDS ORDERED: 0.9 % Sodium Chloride 250 ML IVC PRN (07:10)
[2020-07-21] MEDS ORDERED: 0.9 % Sodium Chloride 1,000 ML PRIME SCH (07:15)
[2020-07-21] MEDS ORDERED: D5% in 0.45% NACL 1,000 ML IVC SCH (07:30)
[2020-07-21 07:47] LABS: Acinetobacter baumannii by PCR Not Detected (Not Detect); Candida albicans by PCR Not Detected (Not Detect); Candida glabrata by PCR Not Detected (Not Detect); Candida krusei by PCR Not Detected (Not Detect); Candida parapsilosis by PCR Not Detected (Not Detect); Candida tropicalis by PCR Not Detected (Not Detect); Enterobacter cloacae Cmplx PCR Not Detected (Not Detect); Enterobacteriaceae by PCR Not Detected (Not Detect); Enterococcus by PCR Not Detected (Not Detect); Escherichia coli by PCR Not Detected (Not Detect); Klebsiella oxytoca by PCR Not Detected (Not Detect); Klebsiella pneumoniae by PCR Not Detected (Not Detect); Proteus by PCR Not Detected (Not Detect); Pseudomonas aeruginosa by PCR Not Detected (Not Detect); Serratia marcescens by PCR Not Detected (Not Detect); Staphylococcus aureus by PCR DETECTED (Not Detect); Streptococcus agalactiae(B)PCR Not Detected (Not Detect); Streptococcus by PCR Not Detected (Not Detect); Streptococcus pneumoniae PCR Not Detected (Not Detect); Streptococcus pyogenes (A) PCR Not Detected (Not Detect); mecA Methicillin-Resist Gene Not Detected (Not Detect)
[2020-07-21 11:02] LABS: Calcium 9.3 mg/dL (8.6-10.3); Potassium 3.4 mEq/L (3.5-5.1)
[2020-07-21] MEDS: carvediloL 25 MG TABLET PO SCH ×3 (11:24→17:05)
[2020-07-21] MEDS: Calcium Acetate 667 MG CAPSULE PO SCH ×4 (11:24→17:06)
[2020-07-21] MEDS ORDERED: *HR* Heparin 10,000 UNIT/10 ML VIAL ONE (12:52)
[2020-07-21] MEDS: CLEAR EYES NATURAL TEARS 15 ML BOTTLE BOTH EYES SCH ×4 (14:03→22:06)
[2020-07-21] MEDS: cloNIDine HCL 0.1 MG TABLET PO SCH ×3 (14:03→19:41)
[2020-07-21] MEDS: hydrALAZINE 25 MG TABLET PO SCH ×3 (14:04→19:32)
[2020-07-21] MEDS: Renal Vitamin 1 CAP CAPSULE PO SCH (14:04)
[2020-07-21] MEDS: Bisacodyl 10 MG RECTAL SUPPOSITORY RC SCH ×2 (14:11→19:32)
[2020-07-21] MEDS: NIFEdipine XL (24 HR) 30 MG TAB.ER.24 PO SCH (14:11)
[2020-07-21] MEDS ORDERED: 0.9 % Sodium Chloride 1,000 ML IVC SCH (17:30)
[2020-07-21] MEDS ORDERED: LOK IVPB SCH (18:00)
[2020-07-21] MEDS ORDERED: CEFAZOLIN IVPB SCH (18:00)
[2020-07-21] MEDS ORDERED: HEPARIN IVPB SCH (18:00)
[2020-07-21] MEDS: ceFAZolin 1,000 MG in Water for inj. (sterile) 10 ML IVP SCH (18:02)
[2020-07-21] MEDS: ALPRAZolam 0.5 MG TABLET PO PRN (18:05)
[2020-07-21] MEDS: Ondansetron ODT 4 MG TAB.RAPDIS SL PRN (19:41)
[2020-07-21] MEDS: CEFAZOLIN IVPB SCH (20:39)
[2020-07-21] MEDS: HEPARIN IVPB SCH (20:39)
[2020-07-21] MEDS: LOK IVPB SCH (20:39)
[2020-07-21] MEDS ORDERED: cephALEXin 500 MG CAPSULE PO SCH (21:00)
[2020-07-21] MEDS: Insulin DETEMIR 100 UNIT/ML X5UNITS SUBQ SCH (21:56)
[2020-07-22] MEDS: Insulin LISPRO 300 UNITS/3 ML VIAL SUBQ SCH ×6 (00:02→20:26)
[2020-07-22] MEDS: Ondansetron ODT 4 MG TAB.RAPDIS SL PRN (02:48)
[2020-07-22 02:55] LABS: Basophils % 0.3 %; Eosinophils # 0.1 K/mcL (0.0-0.6); Eosinophils % 1.5 %; Hematocrit 21.1 % (35.3-44.9); Hemoglobin 7.3 g/dL (11.5-15.4); Immature Granulocytes % 0.3 % (0-4); Lymphocytes # 0.5 K/mcL (0.6-4.6); Lymphocytes % 14.3 %; Mean Corpuscular HGB Conc 34.6 g/dL (31.6-35.5); Mean Corpuscular Volume 92.5 fL (83.0-100.0); Mean Platelet Volume 9.7 fL (9.4-12.4); Monocytes # 0.6 K/mcL (0.0-1.3); Monocytes % 17.6 %; Neutrophils # 2.2 K/mcL (1.6-8.9); Platelet Count 105 K/mcL (140-400); Red Blood Count 2.28 M/mcL (3.82-4.97); Red Cell Distribution Width 17.3 % (11.5-14.5); White Blood Count 3.4 K/mcL (4.3-11.1)
[2020-07-22 03:16] LABS: Calcium 8.1 mg/dL (8.6-10.3); Magnesium 1.9 mg/dL (1.6-2.6); Potassium 3.5 mEq/L (3.5-5.1)
[2020-07-22] MEDS: *HR* Dextrose 50 % in Water (Vial) 50 ML VIAL IVP PRN (03:53)
[2020-07-22] MEDS: *HR* HYDROmorphone (PF) 1 MG/ML SYRINGE IVP PRN ×7 (04:09→23:05)
[2020-07-22] MEDS: Pantoprazole 40 MG VIAL IVP SCH ×2 (05:30→17:30)
[2020-07-22] MEDS: LOK IVPB SCH (06:30)
[2020-07-22] MEDS: HEPARIN IVPB SCH ×3 (06:30→23:05)
[2020-07-22] MEDS: CEFAZOLIN IVPB SCH ×3 (06:30→23:05)
[2020-07-22] MEDS: Prochlorperazine 10 MG/2 ML VIAL IVP PRN ×3 (07:13→23:05)
[2020-07-22] MEDS: hydrALAZINE 25 MG TABLET PO SCH ×3 (08:27→20:25)
[2020-07-22] MEDS: Renal Vitamin 1 CAP CAPSULE PO SCH (08:28)
[2020-07-22] MEDS: NIFEdipine XL (24 HR) 30 MG TAB.ER.24 PO SCH (08:28)
[2020-07-22] MEDS: predniSONE 10 MG TABLET PO SCH (08:28)
[2020-07-22] MEDS: cloNIDine HCL 0.1 MG TABLET PO SCH ×3 (08:28→20:25)
[2020-07-22] MEDS: carvediloL 25 MG TABLET PO SCH ×2 (08:28→15:10)
[2020-07-22] MEDS: CLEAR EYES NATURAL TEARS 15 ML BOTTLE BOTH EYES SCH ×3 (08:29→15:11)
[2020-07-22] MEDS: Calcium Acetate 667 MG CAPSULE PO SCH ×3 (08:29→17:30)
[2020-07-22] MEDS: Bisacodyl 10 MG RECTAL SUPPOSITORY RC SCH ×2 (08:29→23:05)
[2020-07-22] MEDS: ALPRAZolam 0.5 MG TABLET PO PRN ×2 (09:22→15:52)
[2020-07-22] MEDS ORDERED: Chloraseptic Spray 177 ML BOTTLE MM PRN (11:30)
[2020-07-22] MEDS: Nystatin SUSP 5 ML UD.LIQ PO SCH ×3 (15:10→20:24)
[2020-07-22] MEDS: ceFAZolin 1,000 MG in Water for inj. (sterile) 10 ML IVP SCH (15:11)
[2020-07-22] MEDS: SODIUM CHLORIDE 0.9% IVPB SCH ×2 (23:04→23:05)
[2020-07-23] MEDS: CLEAR EYES NATURAL TEARS 15 ML BOTTLE BOTH EYES SCH ×5 (00:04→20:24)
[2020-07-23] MEDS: Insulin LISPRO 300 UNITS/3 ML VIAL SUBQ SCH ×6 (00:04→20:24)
[2020-07-23 01:14] LABS: Basophils % 0.3 %; Eosinophils % 1.1 %; Immature Granulocytes % 0.5 % (0-4)
[2020-07-23 01:15] LABS: Hematocrit 20.8 % (35.3-44.9); Hemoglobin 7.2 g/dL (11.5-15.4); Immature Platelets 3.7 % (1.1-6.1); Lymphocytes # 0.4 K/mcL (0.6-4.6); Lymphocytes % 10.2 %; Mean Corpuscular HGB Conc 34.6 g/dL (31.6-35.5); Mean Corpuscular Hemoglobin 31.3 pg (28.0-33.3); Mean Corpuscular Volume 90.4 fL (83.0-100.0); Mean Platelet Volume 9.8 fL (9.4-12.4); Monocytes # 0.4 K/mcL (0.0-1.3); Monocytes % 11.9 %; Neutrophils # 2.8 K/mcL (1.6-8.9); Platelet Count 110 K/mcL (140-400); Red Cell Distribution Width 16.3 % (11.5-14.5); White Blood Count 3.7 K/mcL (4.3-11.1)
[2020-07-23 01:34] LABS: Calcium 7.8 mg/dL (8.6-10.3); Magnesium 2.1 mg/dL (1.6-2.6); Phosphorous 3.3 mg/dL (2.7-4.5); Potassium 4.1 mEq/L (3.5-5.1)
[2020-07-23] MEDS: *HR* HYDROmorphone (PF) 1 MG/ML SYRINGE IVP PRN ×7 (03:13→20:23)
[2020-07-23] MEDS: Ondansetron ODT 4 MG TAB.RAPDIS SL PRN (03:18)
[2020-07-23] MEDS: Pantoprazole 40 MG VIAL IVP SCH ×2 (05:50→17:46)
[2020-07-23] MEDS ORDERED: 0.9 % Sodium Chloride 250 ML IVC PRN (08:02)
[2020-07-23] MEDS: Nystatin SUSP 5 ML UD.LIQ PO SCH ×4 (08:48→20:22)
[2020-07-23] MEDS: Prochlorperazine 10 MG/2 ML VIAL IVP PRN (08:48)
[2020-07-23] MEDS: ALPRAZolam 0.5 MG TABLET PO PRN ×3 (08:48→23:24)
[2020-07-23] MEDS: hydrALAZINE 25 MG TABLET PO SCH ×3 (08:48→20:22)
[2020-07-23] MEDS: NIFEdipine XL (24 HR) 30 MG TAB.ER.24 PO SCH (08:49)
[2020-07-23] MEDS: cloNIDine HCL 0.1 MG TABLET PO SCH ×3 (08:49→20:22)
[2020-07-23] MEDS: Calcium Acetate 667 MG CAPSULE PO SCH ×3 (08:49→15:18)
[2020-07-23] MEDS: carvediloL 25 MG TABLET PO SCH ×2 (08:50→15:17)
[2020-07-23] MEDS: Renal Vitamin 1 CAP CAPSULE PO SCH (08:50)
[2020-07-23] MEDS: predniSONE 10 MG TABLET PO SCH (08:50)
[2020-07-23] MEDS: Bisacodyl 10 MG RECTAL SUPPOSITORY RC SCH ×2 (08:50→23:28)
[2020-07-23] MEDS: CEFAZOLIN IVPB SCH ×3 (12:35→17:58)
[2020-07-23] MEDS: HEPARIN IVPB SCH ×3 (12:35→17:58)
[2020-07-23] MEDS: SODIUM CHLORIDE 0.9% IVPB SCH ×3 (12:35→17:58)
[2020-07-23] MEDS: ceFAZolin 1,000 MG in Water for inj. (sterile) 10 ML IVP SCH (17:46)
[2020-07-24] MEDS: *HR* HYDROmorphone (PF) 1 MG/ML SYRINGE IVP PRN ×6 (00:44→23:42)
[2020-07-24] MEDS: Fluticasone Propionate Nasal 50 MCG/SPRAY BOTTLE NS SCH ×2 (00:45→07:47)
[2020-07-24] MEDS: Insulin LISPRO 300 UNITS/3 ML VIAL SUBQ SCH ×7 (00:45→23:41)
[2020-07-24 02:26] LABS: Basophils % 0.3 %; Immature Granulocytes % 0.3 % (0-4); Mean Corpuscular HGB Conc 33.9 g/dL (31.6-35.5)
[2020-07-24 02:28] LABS: Hematocrit 18.6 % (35.3-44.9); Hemoglobin 6.3 g/dL (11.5-15.4); Immature Platelets 1.9 % (1.1-6.1); Lymphocytes # 0.4 K/mcL (0.6-4.6); Lymphocytes % 12.2 %; Mean Corpuscular Hemoglobin 31.2 pg (28.0-33.3); Mean Corpuscular Volume 92.1 fL (83.0-100.0); Mean Platelet Volume 9.5 fL (9.4-12.4); Monocytes # 0.4 K/mcL (0.0-1.3); Monocytes % 13.2 %; Neutrophils # 2.2 K/mcL (1.6-8.9); Platelet Count 100 K/mcL (140-400); Red Blood Count 2.02 M/mcL (3.82-4.97); Red Cell Distribution Width 16.4 % (11.5-14.5)
[2020-07-24 02:46] LABS: Calcium 7.8 mg/dL (8.6-10.3); Magnesium 1.9 mg/dL (1.6-2.6); Phosphorous 2.1 mg/dL (2.7-4.5); Potassium 3.6 mEq/L (3.5-5.1)
[2020-07-24] MEDS: Prochlorperazine 10 MG/2 ML VIAL IVP PRN (04:46)
[2020-07-24] MEDS: Pantoprazole 40 MG VIAL IVP SCH ×2 (04:46→14:48)
[2020-07-24] MEDS: HEPARIN IVPB SCH ×4 (06:53→19:12)
[2020-07-24] MEDS: CEFAZOLIN IVPB SCH ×4 (06:53→19:12)
[2020-07-24] MEDS: SODIUM CHLORIDE 0.9% IVPB SCH ×4 (06:53→19:12)
[2020-07-24] MEDS: cloNIDine HCL 0.1 MG TABLET PO SCH ×3 (07:46→21:54)
[2020-07-24] MEDS: predniSONE 10 MG TABLET PO SCH (07:46)
[2020-07-24] MEDS: hydrALAZINE 25 MG TABLET PO SCH ×3 (07:46→21:54)
[2020-07-24] MEDS: Renal Vitamin 1 CAP CAPSULE PO SCH (07:46)
[2020-07-24] MEDS: ALPRAZolam 0.5 MG TABLET PO PRN ×3 (07:46→22:01)
[2020-07-24] MEDS: Calcium Acetate 667 MG CAPSULE PO SCH ×3 (07:46→16:54)
[2020-07-24] MEDS: NIFEdipine XL (24 HR) 30 MG TAB.ER.24 PO SCH (07:46)
[2020-07-24] MEDS: Nystatin SUSP 5 ML UD.LIQ PO SCH ×4 (07:47→21:55)
[2020-07-24] MEDS: Bisacodyl 10 MG RECTAL SUPPOSITORY RC SCH ×2 (07:47→21:55)
[2020-07-24] MEDS: carvediloL 25 MG TABLET PO SCH ×2 (07:47→16:54)
[2020-07-24] MEDS: CLEAR EYES NATURAL TEARS 15 ML BOTTLE BOTH EYES SCH ×4 (07:47→22:13)
[2020-07-24] MEDS: Insulin DETEMIR 100 UNIT/ML X5UNITS SUBQ SCH (07:47)
[2020-07-24] MEDS: ceFAZolin 1,000 MG in Water for inj. (sterile) 10 ML IVP SCH (14:48)
[2020-07-24] MEDS: Ondansetron ODT 4 MG TAB.RAPDIS SL PRN (16:54)
[2020-07-25] MEDS: *HR* HYDROmorphone (PF) 1 MG/ML SYRINGE IVP PRN ×5 (02:53→19:42)
[2020-07-25 03:12] LABS: Basophils % 0.2 %; Eosinophils % 0.9 %; Hematocrit 22.5 % (35.3-44.9); Hemoglobin 7.8 g/dL (11.5-15.4); Immature Granulocytes % 0.5 % (0-4); Lymphocytes # 0.5 K/mcL (0.6-4.6); Mean Corpuscular HGB Conc 34.7 g/dL (31.6-35.5); Mean Corpuscular Hemoglobin 31.6 pg (28.0-33.3); Mean Corpuscular Volume 91.1 fL (83.0-100.0); Mean Platelet Volume 9.2 fL (9.4-12.4); Monocytes # 0.6 K/mcL (0.0-1.3); Monocytes % 12.9 %; Neutrophils # 3.3 K/mcL (1.6-8.9); Platelet Count 102 K/mcL (140-400); Red Blood Count 2.47 M/mcL (3.82-4.97); Red Cell Distribution Width 15.6 % (11.5-14.5); Segmented Neutrophils % 73.5 %; White Blood Count 4.4 K/mcL (4.3-11.1)
[2020-07-25 03:38] LABS: Calcium 8.5 mg/dL (8.6-10.3); Magnesium 1.9 mg/dL (1.6-2.6); Phosphorous 2.9 mg/dL (2.7-4.5); Potassium 4.5 mEq/L (3.5-5.1)
[2020-07-25] MEDS: Insulin LISPRO 300 UNITS/3 ML VIAL SUBQ SCH ×5 (04:31→21:48)
[2020-07-25] MEDS: Pantoprazole 40 MG VIAL IVP SCH ×2 (05:44→16:26)
[2020-07-25] MEDS: HEPARIN IVPB SCH ×5 (06:29→19:40)
[2020-07-25] MEDS: SODIUM CHLORIDE 0.9% IVPB SCH ×5 (06:29→19:40)
[2020-07-25] MEDS: CEFAZOLIN IVPB SCH ×5 (06:29→19:40)
[2020-07-25] MEDS ORDERED: 0.9 % Sodium Chloride 250 ML IVC PRN (07:54)
[2020-07-25] MEDS ORDERED: *HR* Heparin 10,000 UNIT/10 ML VIAL IV PRN (07:54)
[2020-07-25] MEDS ORDERED: 0.9 % Sodium Chloride 1,000 ML PRIME SCH (08:00)
[2020-07-25] MEDS: carvediloL 25 MG TABLET PO SCH ×2 (08:24→16:28)
[2020-07-25] MEDS: Nystatin SUSP 5 ML UD.LIQ PO SCH ×4 (08:24→21:50)
[2020-07-25] MEDS: predniSONE 10 MG TABLET PO SCH (08:24)
[2020-07-25] MEDS: Renal Vitamin 1 CAP CAPSULE PO SCH (08:24)
[2020-07-25] MEDS: NIFEdipine XL (24 HR) 30 MG TAB.ER.24 PO SCH (08:24)
[2020-07-25] MEDS: hydrALAZINE 25 MG TABLET PO SCH ×3 (08:24→21:51)
[2020-07-25] MEDS: Bisacodyl 10 MG RECTAL SUPPOSITORY RC SCH ×2 (08:25→21:51)
[2020-07-25] MEDS: cloNIDine HCL 0.1 MG TABLET PO SCH ×3 (08:25→21:50)
[2020-07-25] MEDS: CLEAR EYES NATURAL TEARS 15 ML BOTTLE BOTH EYES SCH ×4 (08:26→21:51)
[2020-07-25] MEDS: Calcium Acetate 667 MG CAPSULE PO SCH ×3 (08:27→17:22)
[2020-07-25] MEDS: Fluticasone Propionate Nasal 50 MCG/SPRAY BOTTLE NS SCH (08:27)
[2020-07-25] MEDS: Insulin DETEMIR 100 UNIT/ML X5UNITS SUBQ SCH (08:28)
[2020-07-25] MEDS: ALPRAZolam 0.5 MG TABLET PO PRN ×3 (08:31→22:58)
[2020-07-25] MEDS: Metoclopramide 10 MG/2 ML VIAL IVP PRN ×2 (08:32→19:41)
[2020-07-25] MEDS ORDERED: SODIUM CHLORIDE 0.9% IVPB ONE ×2 (11:30)
[2020-07-25] MEDS ORDERED: CEFAZOLIN IVPB ONE ×2 (11:30)
[2020-07-25] MEDS ORDERED: HEPARIN IVPB ONE ×2 (11:30)
[2020-07-25] MEDS: ceFAZolin 1,000 MG in Water for inj. (sterile) 10 ML IVP SCH (16:24)
[2020-07-25] MEDS: Ondansetron ODT 4 MG TAB.RAPDIS SL PRN (19:42)
[2020-07-26] MEDS: *HR* HYDROmorphone (PF) 1 MG/ML SYRINGE IVP PRN ×3 (03:44→19:39)
[2020-07-26 04:50] LABS: Basophils % 0.4 %; Hemoglobin 7.3 g/dL (11.5-15.4); Immature Granulocytes % 0.4 % (0-4)
[2020-07-26 04:52] LABS: Eosinophils % 1.1 %; Hematocrit 22.2 % (35.3-44.9); Lymphocytes # 0.4 K/mcL (0.6-4.6); Lymphocytes % 15.9 %; Mean Corpuscular HGB Conc 32.9 g/dL (31.6-35.5); Mean Corpuscular Hemoglobin 31.5 pg (28.0-33.3); Mean Corpuscular Volume 95.7 fL (83.0-100.0); Mean Platelet Volume 9.7 fL (9.4-12.4); Monocytes # 0.4 K/mcL (0.0-1.3); Monocytes % 14.8 %; Neutrophils # 1.8 K/mcL (1.6-8.9); Red Blood Count 2.32 M/mcL (3.82-4.97); Red Cell Distribution Width 16.1 % (11.5-14.5); Segmented Neutrophils % 67.4 %; White Blood Count 2.7 K/mcL (4.3-11.1)
[2020-07-26 04:57] LABS: Platelet Count 97 K/mcL (140-400)
[2020-07-26 05:01] LABS: Calcium 8.3 mg/dL (8.6-10.3); Magnesium 1.9 mg/dL (1.6-2.6); Phosphorous 3.1 mg/dL (2.7-4.5); Potassium 4.9 mEq/L (3.5-5.1)
[2020-07-26] MEDS: Pantoprazole 40 MG VIAL IVP SCH ×2 (05:52→17:02)
[2020-07-26] MEDS: Insulin LISPRO 300 UNITS/3 ML VIAL SUBQ SCH ×4 (06:36→20:15)
[2020-07-26] MEDS: SODIUM CHLORIDE 0.9% IVPB SCH ×4 (07:20→19:02)
[2020-07-26] MEDS: CEFAZOLIN IVPB SCH ×4 (07:20→19:02)
[2020-07-26] MEDS: HEPARIN IVPB SCH ×4 (07:20→19:02)
[2020-07-26] MEDS: hydrALAZINE 25 MG TABLET PO SCH ×3 (07:54→20:54)
[2020-07-26] MEDS: Calcium Acetate 667 MG CAPSULE PO SCH ×3 (07:54→17:02)
[2020-07-26] MEDS: NIFEdipine XL (24 HR) 30 MG TAB.ER.24 PO SCH (07:54)
[2020-07-26] MEDS: Renal Vitamin 1 CAP CAPSULE PO SCH (07:55)
[2020-07-26] MEDS: cloNIDine HCL 0.1 MG TABLET PO SCH ×3 (07:55→20:54)
[2020-07-26] MEDS: carvediloL 25 MG TABLET PO SCH ×2 (07:55→17:02)
[2020-07-26] MEDS: predniSONE 10 MG TABLET PO SCH (07:55)
[2020-07-26] MEDS: Nystatin SUSP 5 ML UD.LIQ PO SCH ×4 (07:55→20:54)
[2020-07-26] MEDS: Insulin DETEMIR 100 UNIT/ML X5UNITS SUBQ SCH (07:57)
[2020-07-26] MEDS: Bisacodyl 10 MG RECTAL SUPPOSITORY RC SCH ×3 (07:57→21:01)
[2020-07-26] MEDS: Fluticasone Propionate Nasal 50 MCG/SPRAY BOTTLE NS SCH (07:57)
[2020-07-26] MEDS: CLEAR EYES NATURAL TEARS 15 ML BOTTLE BOTH EYES SCH ×4 (08:02→20:54)
[2020-07-26] MEDS: ALPRAZolam 0.5 MG TABLET PO PRN ×2 (09:04→20:57)
[2020-07-26] MEDS: Metoclopramide 10 MG/2 ML VIAL IVP PRN ×2 (10:09→17:15)
[2020-07-26] MEDS: ceFAZolin 1,000 MG in Water for inj. (sterile) 10 ML IVP SCH (15:36)
[2020-07-27 03:20] LABS: Basophils % 0.3 %; Hemoglobin 7.5 g/dL (11.5-15.4); Mean Corpuscular Hemoglobin 31.6 pg (28.0-33.3); Red Blood Count 2.37 M/mcL (3.82-4.97); Red Cell Distribution Width 15.9 % (11.5-14.5)
[2020-07-27 03:22] LABS: Eosinophils % 1.3 %; Hematocrit 22.5 % (35.3-44.9); Immature Granulocytes % 0.6 % (0-4); Immature Platelets 1.5 % (1.1-6.1); Lymphocytes # 0.5 K/mcL (0.6-4.6); Lymphocytes % 14.4 %; Mean Corpuscular HGB Conc 33.3 g/dL (31.6-35.5); Mean Corpuscular Volume 94.9 fL (83.0-100.0); Monocytes # 0.4 K/mcL (0.0-1.3); Monocytes % 13.1 %; Neutrophils # 2.2 K/mcL (1.6-8.9); Platelet Count 104 K/mcL (140-400); Segmented Neutrophils % 70.3 %; White Blood Count 3.1 K/mcL (4.3-11.1)
[2020-07-27 03:39] LABS: Calcium 8.9 mg/dL (8.6-10.3); Phosphorous 3.4 mg/dL (2.7-4.5); Potassium 5.2 mEq/L (3.5-5.1)
[2020-07-27] MEDS: Bisacodyl 10 MG RECTAL SUPPOSITORY RC SCH (04:51)
[2020-07-27] MEDS: Pantoprazole 40 MG VIAL IVP SCH (05:20)
[2020-07-27] MEDS: *HR* HYDROmorphone (PF) 1 MG/ML SYRINGE IVP PRN ×2 (05:28→11:40)
[2020-07-27] MEDS: Insulin LISPRO 300 UNITS/3 ML VIAL SUBQ SCH ×2 (06:36→13:33)
[2020-07-27] MEDS ORDERED: 0.9 % Sodium Chloride 250 ML IVC PRN (07:25)
[2020-07-27] MEDS ORDERED: *HR* Heparin 10,000 UNIT/10 ML VIAL IV PRN (07:25)
[2020-07-27] MEDS: cloNIDine HCL 0.1 MG TABLET PO SCH ×2 (08:01→13:31)
[2020-07-27] MEDS: hydrALAZINE 25 MG TABLET PO SCH ×2 (08:01→13:31)
[2020-07-27] MEDS: HEPARIN IVPB SCH (12:18)
[2020-07-27] MEDS: CEFAZOLIN IVPB SCH (12:18)
[2020-07-27] MEDS: SODIUM CHLORIDE 0.9% IVPB SCH (12:18)
[2020-07-27 12:30] VITALS: BP 208/90
[2020-07-27] MEDS: Fluticasone Propionate Nasal 50 MCG/SPRAY BOTTLE NS SCH (13:26)
[2020-07-27] MEDS: Nystatin SUSP 5 ML UD.LIQ PO SCH (13:30)
[2020-07-27] MEDS: Calcium Acetate 667 MG CAPSULE PO SCH (13:31)
[2020-07-27] MEDS: NIFEdipine XL (24 HR) 30 MG TAB.ER.24 PO SCH (13:31)
[2020-07-27] MEDS: carvediloL 25 MG TABLET PO SCH (13:31)
[2020-07-27] MEDS: CLEAR EYES NATURAL TEARS 15 ML BOTTLE BOTH EYES SCH (13:32)
== END 2020-07-27 16:00 | disposition home or self-care (01) | DRG 73 ==
LOC: EMEROOARM 23:20 → CDU 23:20 → SUATTDRO 07-21 17:49 → 2ANU 07-21 18:58
PROVIDERS: ADMIT Internal Medicine; ATTEND Internal Medicine

== ENCOUNTER 2020-07-29 20:47 | Inpatient (IN) ==
[2020-07-29] MEDS ORDERED: Ondansetron 4 MG/2 ML VIAL IVP ONE (22:19)
[2020-07-29] MEDS ORDERED: 0.9 % Sodium Chloride 250 ML IVC ONE (22:36)
[2020-07-29] MEDS ORDERED: *HR* FentaNYL (PF) 100 MCG/2 ML VIAL IVP ONE (22:37)
[2020-07-29 22:50] LABS: Eosinophils % 0.2 %; Red Cell Distribution Width 16.4 % (11.5-14.5)
[2020-07-29 22:52] LABS: Basophils % 0.2 %; Hematocrit 17.2 % (35.3-44.9); Immature Granulocytes % 0.4 % (0-4); Lymphocytes # 0.3 K/mcL (0.6-4.6); Mean Corpuscular HGB Conc 33.7 g/dL (31.6-35.5); Mean Corpuscular Hemoglobin 31.9 pg (28.0-33.3); Mean Corpuscular Volume 94.5 fL (83.0-100.0); Mean Platelet Volume 9.2 fL (9.4-12.4); Monocytes # 0.2 K/mcL (0.0-1.3); Monocytes % 2.9 %; Neutrophils # 7.7 K/mcL (1.6-8.9); Platelet Count 125 K/mcL (140-400); Red Blood Count 1.82 M/mcL (3.82-4.97); Segmented Neutrophils % 93.3 %; White Blood Count 8.2 K/mcL (4.3-11.1)
[2020-07-29 22:55] LABS: Hemoglobin 5.8 g/dL (11.5-15.4)
[2020-07-29 23:02] LABS: INR 1.2; Prothrombin Time 13.9 Seconds (9.4-12.1)
[2020-07-29 23:05] LABS: Activated Partial Thrombo Time 44.6 Seconds (26.0-36.0)
[2020-07-29 23:16] LABS: Alanine Aminotransferase < 3 Units/L (7-52); Albumin 2.4 g/dL (3.5-5.7); Albumin/Globulin Ratio 1.3 (1.1-2.2); Alkaline Phosphatase 33 Units/L (34-104); Aspartate Amino Transferase 19 Units/L (13-39); BUN/Creatinine Ratio 7 (6-26); Bilirubin,Total 0.4 mg/dL (0.3-1.0); Blood Urea Nitrogen 25 mg/dL (6-20); Calcium 7.4 mg/dL (8.6-10.3); Carbon Dioxide 28 mEq/L (23-29); Chloride 94 mEq/L (98-107); Globulin 1.9 g/dL (2.4-3.5); Glucose 138 mg/dL (70-105); Osmolality,Calculated 277 (280-300); Sodium 130 mEq/L (136-145); Total Protein 4.3 g/dL (6.4-8.9); eGFR For African Americans 16 (> 60); eGFR For Non-African Americans 13 (> 60)
[2020-07-29] MEDS ORDERED: 0.9 % Sodium Chloride 500 ML ONE (23:46)
[2020-07-30] MEDS ORDERED: Pantoprazole 40 MG VIAL IVP ONE (00:26)
[2020-07-30] MEDS ORDERED: Piperacillin/Tazobactam 3.375 GM in 0.9 % Sodium Chloride Mini Bag 100 ML IVPB ONE (00:30)
[2020-07-30] MEDS ORDERED: Ondansetron 4 MG/2 ML VIAL IVP PRN (01:41)
[2020-07-30] MEDS ORDERED: Naloxone 0.4 MG/ML INJ IVP PRN (01:41)
[2020-07-30] MEDS ORDERED: 0.9 % Sodium Chloride 1,000 ML IVC SCH (01:45)
[2020-07-30] MEDS: Morphine Sulfate 2 MG/ML SYRINGE IVP PRN ×2 (03:30→07:52)
[2020-07-30] MEDS ORDERED: Azithromycin 500 MG in 0.9 % Sodium Chloride 250 ML IVPB SCH (04:00)
[2020-07-30] MEDS ORDERED: Pantoprazole 40 MG VIAL IVP SCH ×2 (06:00→12:00)
[2020-07-30 07:45] LABS: Basophils % 0.1 %
[2020-07-30 07:47] LABS: Eosinophils % 0.3 %; Immature Granulocytes % 0.5 % (0-4); Lymphocytes # 0.8 K/mcL (0.6-4.6); Lymphocytes % 10.6 %; Mean Corpuscular HGB Conc 32.9 g/dL (31.6-35.5); Mean Corpuscular Hemoglobin 31.3 pg (28.0-33.3); Mean Platelet Volume 9.6 fL (9.4-12.4); Monocytes # 0.8 K/mcL (0.0-1.3); Monocytes % 10.9 %; Platelet Count 104 K/mcL (140-400); Red Blood Count 1.79 M/mcL (3.82-4.97); Red Cell Distribution Width 14.8 % (11.5-14.5); Segmented Neutrophils % 77.6 %; White Blood Count 7.4 K/mcL (4.3-11.1)
[2020-07-30 07:51] LABS: Neutrophils # 5.7 K/mcL (1.6-8.9)
[2020-07-30 07:57] LABS: Hemoglobin 5.6 g/dL (11.5-15.4)
[2020-07-30 08:00] LABS: Calcium 6.8 mg/dL (8.6-10.3); Magnesium 1.8 mg/dL (1.6-2.6); Phosphorous 3.7 mg/dL (2.7-4.5); Potassium 4.2 mEq/L (3.5-5.1)
[2020-07-30] MEDS ORDERED: Piperacillin/Tazobactam 3.375 GM in 0.9 % Sodium Chloride Mini Bag 100 ML IVPB SCH (08:00)
[2020-07-30] MEDS ORDERED: Metoclopramide 10 MG/2 ML VIAL IVP STA (08:07)
[2020-07-30] MEDS ORDERED: D5% in Water 1,000 ML IVC PRN (08:39)
[2020-07-30] MEDS ORDERED: *HR* Dextrose 50 % in Water (Vial) 50 ML VIAL IVP PRN (08:39)
[2020-07-30] MEDS ORDERED: Dextrose Gel 15 GM/37.5 ML TUBE PO PRN ×2 (08:39)
[2020-07-30] MEDS ORDERED: Insulin DETEMIR 100 UNIT/ML X5UNITS SUBQ ONE (08:40)
[2020-07-30] MEDS ORDERED: Ondansetron 4 MG/2 ML VIAL ONE ×2 (09:44→19:28)
[2020-07-30] MEDS ORDERED: *HR* Rocuronium Bromide 50 MG/5 ML VIAL ONE (09:52)
[2020-07-30] MEDS ORDERED: Lidocaine HCL 4 ML Topical Solution (Laryng-O-Jet Kit Sterile Pak) TP ONE (09:58)
[2020-07-30] MEDS ORDERED: *HR* FentaNYL (PF) 100 MCG/2 ML VIAL ONE ×3 (09:58→18:55)
[2020-07-30] MEDS ORDERED: Simethicone 40 MG/0.6 ML MLS IR ONE (10:13)
[2020-07-30] MEDS ORDERED: *HR* EPINEPHrine 1 MG/10 ML SYRINGE ONE (10:37)
[2020-07-30 11:01] LABS: Basophils % 0.2 %; Eosinophils % 0.3 %; Hematocrit 15.6 % (35.3-44.9); Immature Granulocytes % 0.3 % (0-4); Monocytes % 13.5 %; Red Cell Distribution Width 16.2 % (11.5-14.5)
[2020-07-30 11:03] LABS: Immature Platelets 3.4 % (1.1-6.1); Lymphocytes # 0.9 K/mcL (0.6-4.6); Lymphocytes % 14.9 %; Mean Corpuscular Hemoglobin 30.6 pg (28.0-33.3); Mean Corpuscular Volume 90.2 fL (83.0-100.0); Mean Platelet Volume 9.8 fL (9.4-12.4); Monocytes # 0.9 K/mcL (0.0-1.3); Neutrophils # 4.5 K/mcL (1.6-8.9); Red Blood Count 1.73 M/mcL (3.82-4.97); Segmented Neutrophils % 70.8 %; White Blood Count 6.3 K/mcL (4.3-11.1)
[2020-07-30 11:06] LABS: Hemoglobin 5.3 g/dL (11.5-15.4); Platelet Count 99 K/mcL (140-400)
[2020-07-30] MEDS: *HR* HYDROmorphone (PF) 1 MG/ML SYRINGE IVP PRN ×4 (11:22→20:49)
[2020-07-30] MEDS: Piperacillin/Tazobactam 3.375 GM in 0.9 % Sodium Chloride Mini Bag 100 ML IVPB SCH ×2 (11:26→20:45)
[2020-07-30] MEDS ORDERED: *HR* LORazepam 2 MG/ML VIAL IVP ONE (12:11)
[2020-07-30] MEDS: Insulin LISPRO 300 UNITS/3 ML VIAL SUBQ SCH ×2 (12:32→18:36)
[2020-07-30] MEDS ORDERED: 0.9 % Sodium Chloride 1,000 ML ONE (13:04)
[2020-07-30] MEDS ORDERED: 0.9 % Sodium Chloride 1,000 ML IV ONE (13:04)
[2020-07-30] MEDS ORDERED: Isovue-370 500 ML BOTTLE IVP ONE (13:17)
[2020-07-30] MEDS ORDERED: 0.9 % Sodium Chloride 250 ML ONE (13:20)
[2020-07-30] MEDS ORDERED: Norepinephrine 4 MG/254 ML IV.SOLN IVC SCH (13:30)
[2020-07-30] MEDS ORDERED: Hydrocortisone Sodium Succ 100 MG/2 ML VIAL IVP ONE (13:37)
[2020-07-30] MEDS: Ondansetron 4 MG/2 ML VIAL IVP PRN ×2 (14:56→22:08)
[2020-07-30] MEDS ORDERED: 0.9 % Sodium Chloride 500 ML ONE ×2 (15:49)
[2020-07-30 16:06] LABS: Basophils % 0.2 %; Eosinophils % 0.3 %; Hematocrit 17.8 % (35.3-44.9); Hemoglobin 6.2 g/dL (11.5-15.4); Immature Granulocytes % 0.3 % (0-4); Lymphocytes # 0.5 K/mcL (0.6-4.6); Lymphocytes % 8.8 %; Mean Corpuscular HGB Conc 34.8 g/dL (31.6-35.5); Mean Corpuscular Hemoglobin 30.8 pg (28.0-33.3); Mean Corpuscular Volume 88.6 fL (83.0-100.0); Mean Platelet Volume 9.6 fL (9.4-12.4); Monocytes # 0.4 K/mcL (0.0-1.3); Monocytes % 6.8 %; Neutrophils # 5.1 K/mcL (1.6-8.9); Red Blood Count 2.01 M/mcL (3.82-4.97); Red Cell Distribution Width 15.8 % (11.5-14.5); Segmented Neutrophils % 83.6 %; White Blood Count 6.1 K/mcL (4.3-11.1)
[2020-07-30 16:08] LABS: Platelet Count 76 K/mcL (140-400)
[2020-07-30 16:09] LABS: VBG Ionized Calcium 0.95 mmol/L (1.15-1.35)
[2020-07-30 16:16] LABS: INR 1.2; Prothrombin Time 14.1 Seconds (9.4-12.1)
[2020-07-30 16:18] LABS: Activated Partial Thrombo Time 25.8 Seconds (26.0-36.0)
[2020-07-30] MEDS ORDERED: *HR* Promethazine 25 MG/ML VIAL IM ONE (16:23)
[2020-07-30 16:34] LABS: Alanine Aminotransferase < 3 Units/L (7-52); Albumin 2.1 g/dL (3.5-5.7); Albumin/Globulin Ratio 1.4 (1.1-2.2); Alkaline Phosphatase 24 Units/L (34-104); Aspartate Amino Transferase 16 Units/L (13-39); BUN/Creatinine Ratio 8 (6-26); Bilirubin,Direct 0.1 mg/dL (0.0-0.2); Bilirubin,Indirect 0.3 mg/dL (0.0-1.0); Bilirubin,Total 0.4 mg/dL (0.3-1.0); Blood Urea Nitrogen 35 mg/dL (6-20); Calcium 6.4 mg/dL (8.6-10.3); Carbon Dioxide 28 mEq/L (23-29); Chloride 98 mEq/L (98-107); Globulin 1.5 g/dL (2.4-3.5); Glucose 159 mg/dL (70-105); Magnesium 1.8 mg/dL (1.6-2.6); Osmolality,Calculated 285 (280-300); Phosphorous 3.4 mg/dL (2.7-4.5); Potassium 4.4 mEq/L (3.5-5.1); Sodium 132 mEq/L (136-145); Total Protein 3.6 g/dL (6.4-8.9); eGFR For African Americans 13 (> 60); eGFR For Non-African Americans 11 (> 60)
[2020-07-30] MEDS: Calcium Gluconate 1gm/50mL 1 GM/50 ML BAG IVPB SCH ×2 (16:41→17:03)
[2020-07-30 17:07] LABS: Adenovirus Not Detected (Not Detect); Bordetella Pertussis Not Detected (Not Detect); Chlamydophila pneumoniae Not Detected (Not Detect); Coronavirus 229E Not Detected (Not Detect); Coronavirus HKU1 Not Detected (Not Detect); Coronavirus NL63 Not Detected (Not Detect); Coronavirus OC43 Not Detected (Not Detect); Human Metapneumovirus Not Detected (Not Detect); Human Rhinovirus/Enterovirus Not Detected (Not Detect); Influenza A Subtype 2009 H1 Not Detected (Not Detect); Influenza B Not Detected (Not Detect); Mycoplasma pneumoniae Not Detected (Not Detect); Parainfluenza Virus 1 Not Detected (Not Detect); Parainfluenza Virus 2 Not Detected (Not Detect); Parainfluenza Virus 3 Not Detected (Not Detect); Parainfluenza Virus 4 Not Detected (Not Detect); Respiratory Syncytial Virus Not Detected (Not Detect); SARS-CoV-2 Not Detected (Not Detect)
[2020-07-30] MEDS ORDERED: *HR* Propofol 200 MG/20 ML VIAL IVP ONE (17:08)
[2020-07-30] MEDS ORDERED: Heparin 1,000 UNITS/500 mL 1,000 ML ONE (17:15)
[2020-07-30] MEDS ORDERED: Isovue-300 50ML VIAL ONE (17:16)
[2020-07-30] MEDS ORDERED: CefOXitin 2,000 MG VIAL ONE (17:51)
[2020-07-30] MEDS ORDERED: *HR* Midazolam HCl 2 MG/2 ML VIAL ONE (18:13)
[2020-07-30] MEDS ORDERED: Lidocaine 1% 20 ML MDV ONE ×2 (18:23→19:07)
[2020-07-30] MEDS ORDERED: cefOXitin 2,000 MG in Water for inj. (sterile) 20 ML IVP ONE (18:41)
[2020-07-30 20:48] LABS: Red Cell Distribution Width 15.7 % (11.5-14.5); Segmented Neutrophils % 90.2 %
[2020-07-30 20:50] LABS: Basophils % 0.3 %; Hematocrit 23.1 % (35.3-44.9); Hemoglobin 7.8 g/dL (11.5-15.4); Immature Granulocytes % 0.7 % (0-4); Immature Platelets 2.3 % (1.1-6.1); Lymphocytes # 0.4 K/mcL (0.6-4.6); Mean Corpuscular HGB Conc 33.8 g/dL (31.6-35.5); Mean Corpuscular Hemoglobin 28.9 pg (28.0-33.3); Mean Corpuscular Volume 85.6 fL (83.0-100.0); Mean Platelet Volume 9.5 fL (9.4-12.4); Monocytes # 0.2 K/mcL (0.0-1.3); Monocytes % 2.8 %; Neutrophils # 6.7 K/mcL (1.6-8.9); White Blood Count 7.4 K/mcL (4.3-11.1)
[2020-07-30 20:56] LABS: Platelet Count 63 K/mcL (140-400)
[2020-07-30] MEDS ORDERED: Hydrocortisone Sodium Succ 100 MG/2 ML VIAL IVP SCH (21:00)
[2020-07-30 21:01] LABS: VBG Ionized Calcium 0.87 mmol/L (1.15-1.35)
[2020-07-30 21:07] LABS: INR 1.2; Prothrombin Time 14.1 Seconds (9.4-12.1)
[2020-07-30] MEDS ORDERED: Calcium Gluconate 1gm/50mL 1 GM/50 ML BAG IVPB PRN (21:10)
[2020-07-30 21:18] LABS: Potassium 4.9 mEq/L (3.5-5.1)
[2020-07-30 21:19] LABS: Calcium 6.2 mg/dL (8.6-10.3)
[2020-07-30] MEDS ORDERED: *HR* HYDROmorphone 2 MG/ML SYRINGE IVP ONE (21:29)
[2020-07-30 22:11] VITALS: BP 167/73
== END 2020-07-30 22:50 | disposition short-term general hospital (02) | DRG 252 ==
LOC: EMEROOARM 20:47 → ICNU 20:47 → SUATTDRO 07-30 01:06 → 2NNU 07-30 01:10 → ICNU 07-30 14:02
PROVIDERS: ADMIT Student in an Organized Health Care Education/Training Program; ATTEND Internal Medicine

== ENCOUNTER 2020-08-25 16:16 | Observation (INO) ==
[2020-08-25] MEDS ORDERED: Ondansetron 4 MG/2 ML VIAL IVP ONE (16:52)
[2020-08-25] MEDS ORDERED: Morphine Sulfate 2 MG/ML SYRINGE IVP ONE (16:53)
[2020-08-25 17:35] LABS: Basophils % 0.5 %; Red Cell Distribution Width 20.7 % (11.5-14.5)
[2020-08-25 17:38] LABS: Eosinophils % 0.5 %; Hematocrit 18.8 % (35.3-44.9); Immature Granulocytes % 0.5 % (0-4); Immature Platelets 2.1 % (1.1-6.1); Lymphocytes # 0.2 K/mcL (0.6-4.6); Lymphocytes % 10.7 %; Mean Corpuscular HGB Conc 31.9 g/dL (31.6-35.5); Mean Corpuscular Hemoglobin 32.1 pg (28.0-33.3); Mean Corpuscular Volume 100.5 fL (83.0-100.0); Mean Platelet Volume 10.2 fL (9.4-12.4); Monocytes # 0.2 K/mcL (0.0-1.3); Monocytes % 7.9 %; Neutrophils # 1.7 K/mcL (1.6-8.9); Red Blood Count 1.87 M/mcL (3.82-4.97); Segmented Neutrophils % 79.9 %; White Blood Count 2.1 K/mcL (4.3-11.1)
[2020-08-25 18:04] LABS: Calcium 7.4 mg/dL (8.6-10.3); Potassium 6.4 mEq/L (3.5-5.1)
[2020-08-25 18:21] LABS: Platelet Count 89 K/mcL (140-400)
[2020-08-25] MEDS ORDERED: Albuterol 2.5 MG/3 ML NEBULIZER IH ONE (18:30)
[2020-08-25] MEDS ORDERED: Insulin Human Regular 10 UNIT in 0.9 % Sodium Chloride 10 ML IV ONE ×2 (18:30→18:50)
[2020-08-25] MEDS ORDERED: *HR* Dextrose 50 % in Water (Vial) 50 ML VIAL IVP ONE (18:41)
[2020-08-25] MEDS ORDERED: SODIUM ZIRCONIUM CYCLOSILICATE 5 GM POWD.PACK PO ONE (19:15)
[2020-08-25] MEDS ORDERED: Isovue-370 500 ML BOTTLE IVP ONE (19:30)
[2020-08-25] MEDS ORDERED: Ondansetron 4 MG/2 ML VIAL IVP PRN (23:06)
[2020-08-25] MEDS ORDERED: Naloxone 0.4 MG/ML INJ IVP PRN (23:06)
[2020-08-25] MEDS ORDERED: Melatonin 3 MG TABLET PO PRN (23:06)
[2020-08-25] MEDS ORDERED: NIFEdipine XL (24 HR) 60 MG TAB.ER.24 PO PRN (23:09)
[2020-08-25] MEDS ORDERED: 0.9 % Sodium Chloride 250 ML ONE (23:18)
[2020-08-25] MEDS: ALPRAZolam 0.5 MG TABLET PO PRN (23:59)
[2020-08-26 04:06] LABS: Hematocrit 24.8 % (35.3-44.9); Immature Platelets 2.3 % (1.1-6.1); Mean Corpuscular HGB Conc 32.3 g/dL (31.6-35.5); Mean Corpuscular Hemoglobin 32.3 pg (28.0-33.3); Mean Platelet Volume 9.6 fL (9.4-12.4); Red Blood Count 2.48 M/mcL (3.82-4.97); Red Cell Distribution Width 18.6 % (11.5-14.5); White Blood Count 2.6 K/mcL (4.3-11.1)
[2020-08-26 04:29] LABS: Calcium 7.3 mg/dL (8.6-10.3); Potassium 7.4 mEq/L (3.5-5.1)
[2020-08-26] MEDS ORDERED: D5% in Water 1,000 ML IVC PRN (04:30)
[2020-08-26] MEDS ORDERED: Dextrose Gel 15 GM/37.5 ML TUBE PO PRN ×2 (04:30)
[2020-08-26] MEDS ORDERED: *HR* Dextrose 50 % in Water (Vial) 50 ML VIAL IVP PRN (04:30)
[2020-08-26] MEDS ORDERED: Calcium Gluconate 1gm/50mL 1 GM/50 ML BAG IVPB ONE (04:33)
[2020-08-26] MEDS ORDERED: SODIUM ZIRCONIUM CYCLOSILICATE 5 GM POWD.PACK PO ONE (04:34)
[2020-08-26] MEDS ORDERED: Albuterol 2.5 MG/3 ML NEBULIZER IH ONE (04:36)
[2020-08-26] MEDS ORDERED: Insulin DETEMIR 100 UNIT/ML X5UNITS SUBQ SCH (04:45)
[2020-08-26] MEDS: Insulin LISPRO 300 UNITS/3 ML VIAL SUBQ SCH ×5 (04:52→16:55)
[2020-08-26] MEDS: *HR* OxyCODONE/APAP 5/325 TABLET PO PRN ×3 (04:57→19:51)
[2020-08-26] MEDS ORDERED: 0.9 % Sodium Chloride 2,000 ML ONE (06:54)
[2020-08-26] MEDS ORDERED: Insulin Regular, Human 100 UNIT/ML IV PRN ×2 (07:01)
[2020-08-26] MEDS ORDERED: D5% in 0.45% NACL 1,000 ML IVC PRN (07:01)
[2020-08-26] MEDS ORDERED: D5% in 0.45% NACL w KCl 20 MEQ/1,000 ML MLS IVC PRN (07:01)
[2020-08-26] MEDS ORDERED: 0.9 % Sodium Chloride 250 ML IVC PRN (07:09)
[2020-08-26] MEDS ORDERED: *HR* Heparin 10,000 UNIT/10 ML VIAL IV PRN (07:09)
[2020-08-26] MEDS ORDERED: 0.9 % Sodium Chloride 1,000 ML PRIME SCH (07:15)
[2020-08-26] MEDS ORDERED: 0.9 % Sodium Chloride 1,000 ML IVC SCH (07:15)
[2020-08-26] MEDS ORDERED: 0.45 % Sodium Chloride w/KCl 20 MEQ/1,000 ML MLS IVC SCH (07:15)
[2020-08-26] MEDS: hydrALAZINE 25 MG TABLET PO SCH ×3 (08:21→19:51)
[2020-08-26] MEDS: ISAVUCONAZONIUM SULFATE 186 MG PO SCH ×2 (08:21→21:15)
[2020-08-26] MEDS: Aspirin Enteric Coated 81 MG Tablet PO SCH (08:21)
[2020-08-26] MEDS: carvediloL 25 MG TABLET PO SCH ×2 (08:21→16:53)
[2020-08-26] MEDS: predniSONE 10 MG TABLET PO SCH (08:21)
[2020-08-26] MEDS: 0.9 % Sodium Chloride 1,000 ML IVC SCH ×4 (09:48→19:22)
[2020-08-26 11:08] LABS: ABG Base Excess 1 mEq/L (-2 to 3); ABG HCO3 25 mEq/L (21-27); ABG Oxygen Saturation 96 % (95-98); ABG PCO2 36 mmHg (35-45); ABG PH 7.45 pH Units (7.32-7.45); ABG PO2 79 mmHg (85-104); ABG TCO2 26 mEq/L (20-26)
[2020-08-26 13:59] LABS: Calcium 7.8 mg/dL (8.6-10.3)
[2020-08-26] MEDS ORDERED: Insulin DETEMIR 100 UNIT/ML X5UNITS SUBQ ONE (14:26)
[2020-08-26] MEDS ORDERED: ceFAZolin 1,000 MG in Water for inj. (sterile) 10 ML IVP SCH ×3 (15:00→18:00)
[2020-08-26] MEDS: ALPRAZolam 0.5 MG TABLET PO PRN (15:11)
[2020-08-26] MEDS: 0.45 % Sodium Chloride w/KCl 20 MEQ/1,000 ML MLS IVC SCH (19:21)
[2020-08-27] MEDS: ALPRAZolam 0.5 MG TABLET PO PRN (04:34)
[2020-08-27 04:54] LABS: Eosinophils # 0.1 K/mcL (0.0-0.6); Eosinophils % 3.3 %; Hematocrit 22.5 % (35.3-44.9); Hemoglobin 7.6 g/dL (11.5-15.4); Immature Platelets 2.3 % (1.1-6.1); Lymphocytes # 0.4 K/mcL (0.6-4.6); Mean Corpuscular HGB Conc 33.8 g/dL (31.6-35.5); Mean Corpuscular Hemoglobin 32.2 pg (28.0-33.3); Mean Corpuscular Volume 95.3 fL (83.0-100.0); Mean Platelet Volume 10.1 fL (9.4-12.4); Monocytes # 0.4 K/mcL (0.0-1.3); Monocytes % 20.9 %; Neutrophils # 1.2 K/mcL (1.6-8.9); Red Blood Count 2.36 M/mcL (3.82-4.97); Red Cell Distribution Width 18.9 % (11.5-14.5); Segmented Neutrophils % 56.8 %; White Blood Count 2.1 K/mcL (4.3-11.1)
[2020-08-27 05:00] LABS: Platelet Count 97 K/mcL (140-400)
[2020-08-27 05:08] LABS: Calcium 7.3 mg/dL (8.6-10.3); Potassium 4.7 mEq/L (3.5-5.1)
[2020-08-27 05:13] LABS: Platelet Estimate Slight Decrease (Normal)
[2020-08-27] MEDS: carvediloL 25 MG TABLET PO SCH (07:41)
[2020-08-27] MEDS: predniSONE 10 MG TABLET PO SCH (07:41)
[2020-08-27] MEDS: *HR* OxyCODONE/APAP 5/325 TABLET PO PRN (07:41)
[2020-08-27] MEDS: Aspirin Enteric Coated 81 MG Tablet PO SCH (07:42)
[2020-08-27] MEDS: hydrALAZINE 25 MG TABLET PO SCH ×2 (07:42→15:14)
[2020-08-27] MEDS: Insulin LISPRO 300 UNITS/3 ML VIAL SUBQ SCH ×4 (07:44→15:02)
[2020-08-27] MEDS: ISAVUCONAZONIUM SULFATE 186 MG PO SCH (07:45)
[2020-08-27] MEDS ORDERED: 0.9 % Sodium Chloride 250 ML IVC PRN (08:20)
[2020-08-27] MEDS ORDERED: *HR* Heparin 10,000 UNIT/10 ML VIAL IV PRN (08:20)
[2020-08-27] MEDS ORDERED: Insulin DETEMIR 100 UNIT/ML X5UNITS SUBQ SCH (09:00)
[2020-08-27 14:12] VITALS: BP 181/79
== END 2020-08-27 15:45 | disposition home or self-care (01) ==
LOC: EMEROOARM 16:16 → 2ANU 16:16 → 2NNU 08-26 11:08
PROVIDERS: ADMIT Internal Medicine; ATTEND Internal Medicine

== ENCOUNTER 2020-08-29 00:42 | Inpatient (IN) ==
[2020-08-29 01:20] LABS: Basophils % 0.4 %; Mean Corpuscular Volume 97.2 fL (83.0-100.0); Red Cell Distribution Width 17.7 % (11.5-14.5)
[2020-08-29 01:22] LABS: Eosinophils # 0.1 K/mcL (0.0-0.6); Eosinophils % 2.1 %; Hematocrit 21.1 % (35.3-44.9); Immature Platelets 1.8 % (1.1-6.1); Lymphocytes # 0.4 K/mcL (0.6-4.6); Mean Corpuscular HGB Conc 33.2 g/dL (31.6-35.5); Mean Corpuscular Hemoglobin 32.3 pg (28.0-33.3); Mean Platelet Volume 9.6 fL (9.4-12.4); Monocytes # 0.4 K/mcL (0.0-1.3); Monocytes % 15.7 %; Platelet Count 101 K/mcL (140-400); Red Blood Count 2.17 M/mcL (3.82-4.97); Segmented Neutrophils % 64.8 %; White Blood Count 2.4 K/mcL (4.3-11.1)
[2020-08-29 01:25] LABS: Neutrophils # 1.6 K/mcL (1.6-8.9)
[2020-08-29] MEDS ORDERED: *HR* FentaNYL (PF) 100 MCG/2 ML VIAL IVP ONE (01:37)
[2020-08-29] MEDS ORDERED: Ondansetron 4 MG/2 ML VIAL IVP ONE (01:38)
[2020-08-29 01:42] LABS: BUN/Creatinine Ratio 10 (6-26); Blood Urea Nitrogen 39 mg/dL (6-20); Calcium 7.5 mg/dL (8.6-10.3); Carbon Dioxide 28 mEq/L (23-29); Chloride 89 mEq/L (98-107); Glucose 397 mg/dL (70-105); Osmolality,Calculated 292 (280-300); Potassium 5.2 mEq/L (3.5-5.1); Sodium 128 mEq/L (136-145); eGFR For African Americans 14 (> 60); eGFR For Non-African Americans 12 (> 60)
[2020-08-29 01:43] LABS: Troponin I < 0.03 ng/mL (< 0.04)
[2020-08-29] MEDS ORDERED: GI Cocktail 40 ML EACH PO ONE (02:15)
[2020-08-29] MEDS ORDERED: *HR* Dextrose 50 % in Water (Vial) 50 ML VIAL IVP PRN (02:23)
[2020-08-29] MEDS ORDERED: Dextrose Gel 15 GM/37.5 ML TUBE PO PRN ×2 (02:23)
[2020-08-29] MEDS ORDERED: D5% in Water 1,000 ML IVC PRN (02:23)
[2020-08-29] MEDS ORDERED: Naloxone 0.4 MG/ML INJ IVP PRN (02:29)
[2020-08-29] MEDS ORDERED: Acetaminophen 325 MG TABLET PO PRN (02:29)
[2020-08-29] MEDS ORDERED: Ipratropium/Albuterol Neb 3 ML IH ONE (03:04)
[2020-08-29 03:08] LABS: Adenovirus Not Detected (Not Detect); Bordetella Pertussis Not Detected (Not Detect); Chlamydophila pneumoniae Not Detected (Not Detect); Coronavirus 229E Not Detected (Not Detect); Coronavirus HKU1 Not Detected (Not Detect); Coronavirus NL63 Not Detected (Not Detect); Coronavirus OC43 Not Detected (Not Detect); Human Metapneumovirus Not Detected (Not Detect); Human Rhinovirus/Enterovirus Not Detected (Not Detect); Influenza A Subtype 2009 H1 Not Detected (Not Detect); Influenza B Not Detected (Not Detect); Mycoplasma pneumoniae Not Detected (Not Detect); Parainfluenza Virus 1 Not Detected (Not Detect); Parainfluenza Virus 2 Not Detected (Not Detect); Parainfluenza Virus 3 Not Detected (Not Detect); Parainfluenza Virus 4 Not Detected (Not Detect); Respiratory Syncytial Virus Not Detected (Not Detect); SARS-CoV-2 Not Detected (Not Detect)
[2020-08-29] MEDS: Insulin DETEMIR 100 UNIT/ML X5UNITS SUBQ SCH ×2 (03:16→23:09)
[2020-08-29] MEDS ORDERED: 0.9 % Sodium Chloride 250 ML ONE (03:37)
[2020-08-29] MEDS: *HR* HYDROmorphone (PF) 1 MG/ML SYRINGE IVP PRN ×2 (06:43→11:28)
[2020-08-29] MEDS: Insulin LISPRO 300 UNITS/3 ML VIAL SUBQ SCH ×4 (06:43→18:31)
[2020-08-29] MEDS ORDERED: *HR* Heparin 10,000 UNIT/10 ML VIAL IV PRN (07:58)
[2020-08-29] MEDS ORDERED: 0.9 % Sodium Chloride 250 ML IVC PRN (07:58)
[2020-08-29] MEDS ORDERED: 0.9 % Sodium Chloride 1,000 ML PRIME SCH (08:00)
[2020-08-29 08:39] LABS: Hemoglobin 7.9 g/dL (11.5-15.4); Mean Platelet Volume 9.2 fL (9.4-12.4); Red Cell Distribution Width 17.2 % (11.5-14.5)
[2020-08-29] MEDS ORDERED: ALPRAZolam 0.5 MG TABLET PO ONE (08:40)
[2020-08-29 08:41] LABS: Hematocrit 23.7 % (35.3-44.9); Immature Platelets 1.7 % (1.1-6.1); Mean Corpuscular HGB Conc 33.3 g/dL (31.6-35.5); Mean Corpuscular Hemoglobin 31.7 pg (28.0-33.3); Mean Corpuscular Volume 95.2 fL (83.0-100.0); Red Blood Count 2.49 M/mcL (3.82-4.97); White Blood Count 2.5 K/mcL (4.3-11.1)
[2020-08-29 08:57] LABS: Calcium 7.6 mg/dL (8.6-10.3)
[2020-08-29 14:46] LABS: Hematocrit 26.7 % (35.3-44.9); Hemoglobin 8.9 g/dL (11.5-15.4)
[2020-08-29] MEDS ORDERED: CloNIDine Patch 0.3 MG PATCH (WEEKLY) TD SCH ×2 (15:57→16:15)
[2020-08-29] MEDS: carvediloL 25 MG TABLET PO SCH (16:00)
[2020-08-29] MEDS: *HR* OxyCODONE/APAP 5/325 TABLET PO PRN ×2 (16:00→20:08)
[2020-08-29] MEDS: hydrALAZINE 25 MG TABLET PO SCH (20:10)
[2020-08-29] MEDS: ISAVUCONAZONIUM SULFATE 186 MG PO SCH (20:14)
[2020-08-29] MEDS: ALPRAZolam 0.5 MG TABLET PO PRN (23:07)
[2020-08-30] MEDS: *HR* OxyCODONE/APAP 5/325 TABLET PO PRN ×2 (01:47→06:48)
[2020-08-30] MEDS ORDERED: hydrALAZINE 25 MG TABLET PO STA (02:37)
[2020-08-30 03:29] LABS: Basophils % 0.4 %; Eosinophils # 0.1 K/mcL (0.0-0.6); Eosinophils % 3.4 %; Hematocrit 23.5 % (35.3-44.9); Hemoglobin 7.8 g/dL (11.5-15.4); Immature Granulocytes % 0.4 % (0-4); Immature Platelets 1.7 % (1.1-6.1); Lymphocytes # 0.4 K/mcL (0.6-4.6); Lymphocytes % 17.7 %; Mean Corpuscular HGB Conc 33.2 g/dL (31.6-35.5); Mean Corpuscular Hemoglobin 31.8 pg (28.0-33.3); Mean Corpuscular Volume 95.9 fL (83.0-100.0); Mean Platelet Volume 9.5 fL (9.4-12.4); Monocytes # 0.4 K/mcL (0.0-1.3); Monocytes % 15.6 %; Neutrophils # 1.5 K/mcL (1.6-8.9); Platelet Count 103 K/mcL (140-400); Red Blood Count 2.45 M/mcL (3.82-4.97); Segmented Neutrophils % 62.5 %; White Blood Count 2.4 K/mcL (4.3-11.1)
[2020-08-30 03:46] LABS: Calcium 7.6 mg/dL (8.6-10.3); Magnesium 1.9 mg/dL (1.6-2.6); Phosphorous 3.7 mg/dL (2.7-4.5); Potassium 4.5 mEq/L (3.5-5.1)
[2020-08-30] MEDS: ALPRAZolam 0.5 MG TABLET PO PRN ×2 (06:49→12:30)
[2020-08-30] MEDS ORDERED: 0.9 % Sodium Chloride 250 ML IVC PRN (07:08)
[2020-08-30] MEDS ORDERED: *HR* Heparin 10,000 UNIT/10 ML VIAL IV PRN (07:08)
[2020-08-30] MEDS ORDERED: 0.9 % Sodium Chloride 1,000 ML PRIME SCH (07:15)
[2020-08-30] MEDS: Insulin LISPRO 300 UNITS/3 ML VIAL SUBQ SCH ×3 (07:16→17:00)
[2020-08-30] MEDS: hydrALAZINE 25 MG TABLET PO SCH ×3 (08:00→20:30)
[2020-08-30] MEDS: carvediloL 25 MG TABLET PO SCH ×2 (08:00→15:39)
[2020-08-30] MEDS: predniSONE 10 MG TABLET PO SCH (08:01)
[2020-08-30] MEDS: Aspirin Enteric Coated 81 MG Tablet PO SCH (08:01)
[2020-08-30] MEDS: ISAVUCONAZONIUM SULFATE 186 MG PO SCH ×2 (08:02→20:32)
[2020-08-30] MEDS: Ondansetron 4 MG/2 ML VIAL IVP PRN ×2 (09:17→17:01)
[2020-08-30] MEDS: *HR* OxyCODONE/APAP 10/325 TABLET PO PRN ×3 (12:10→20:30)
[2020-08-30] MEDS: NIFEdipine XL (24 HR) 60 MG TAB.ER.24 PO SCH ×2 (12:10→12:27)
[2020-08-30 14:20] LABS: Alanine Aminotransferase < 3 Units/L (7-52); Albumin 3.1 g/dL (3.5-5.7); Albumin/Globulin Ratio 1.2 (1.1-2.2); Alkaline Phosphatase 45 Units/L (34-104); Aspartate Amino Transferase 15 Units/L (13-39); Bilirubin,Direct 0.1 mg/dL (0.0-0.2); Bilirubin,Indirect 0.5 mg/dL (0.0-1.0); Bilirubin,Total 0.6 mg/dL (0.3-1.0); Globulin 2.6 g/dL (2.4-3.5); Total Protein 5.7 g/dL (6.4-8.9)
[2020-08-30] MEDS ORDERED: ALPRAZolam 0.5 MG TABLET PO ONE (18:30)
[2020-08-30] MEDS: niCARdipine 20 MG/200 ML MLS IVC SCH (22:33)
[2020-08-31] MEDS: *HR* OxyCODONE/APAP 10/325 TABLET PO PRN ×6 (00:44→23:57)
[2020-08-31 04:51] LABS: Eosinophils % 1.3 %; Immature Granulocytes % 0.3 % (0-4); Red Cell Distribution Width 17.2 % (11.5-14.5); Segmented Neutrophils % 68.9 %
[2020-08-31 04:53] LABS: Basophils % 0.7 %; Hemoglobin 7.8 g/dL (11.5-15.4); Immature Platelets 1.7 % (1.1-6.1); Lymphocytes # 0.5 K/mcL (0.6-4.6); Mean Corpuscular HGB Conc 33.9 g/dL (31.6-35.5); Mean Corpuscular Hemoglobin 32.9 pg (28.0-33.3); Mean Platelet Volume 9.4 fL (9.4-12.4); Monocytes # 0.4 K/mcL (0.0-1.3); Monocytes % 11.8 %; Neutrophils # 2.1 K/mcL (1.6-8.9); Platelet Count 113 K/mcL (140-400); Red Blood Count 2.37 M/mcL (3.82-4.97); White Blood Count 3.1 K/mcL (4.3-11.1)
[2020-08-31] MEDS: ALPRAZolam 0.5 MG TABLET PO PRN ×2 (05:02→15:10)
[2020-08-31 05:12] LABS: Calcium 7.4 mg/dL (8.6-10.3); Magnesium 1.9 mg/dL (1.6-2.6); Phosphorous 4.8 mg/dL (2.7-4.5); Potassium 6.4 mEq/L (3.5-5.1)
[2020-08-31 05:21] LABS: Thyroid Stimulating Hormone 13.153 mcIU/mL (0.340-5.600)
[2020-08-31] MEDS ORDERED: *HR* Heparin 10,000 UNIT/10 ML VIAL IV PRN (07:30)
[2020-08-31] MEDS ORDERED: 0.9 % Sodium Chloride 250 ML IVC PRN (07:30)
[2020-08-31] MEDS ORDERED: 0.9 % Sodium Chloride 1,000 ML PRIME SCH (07:30)
[2020-08-31] MEDS: Aspirin Enteric Coated 81 MG Tablet PO SCH (07:32)
[2020-08-31] MEDS: hydrALAZINE 25 MG TABLET PO SCH ×3 (07:33→19:36)
[2020-08-31] MEDS: predniSONE 10 MG TABLET PO SCH (07:33)
[2020-08-31] MEDS: carvediloL 25 MG TABLET PO SCH ×2 (07:33→16:48)
[2020-08-31] MEDS: Insulin DETEMIR 100 UNIT/ML X5UNITS SUBQ SCH (07:36)
[2020-08-31] MEDS: Ondansetron 4 MG/2 ML VIAL IVP PRN (07:41)
[2020-08-31] MEDS: Insulin LISPRO 300 UNITS/3 ML VIAL SUBQ SCH ×3 (07:43→17:02)
[2020-08-31] MEDS ORDERED: hydrALAZINE 25 MG TABLET PO ONE (08:30)
[2020-08-31] MEDS: ISAVUCONAZONIUM SULFATE 186 MG PO SCH ×2 (13:04→19:36)
[2020-08-31] MEDS ORDERED: hydrALAZINE 25 MG TABLET PO SCH (15:00)
[2020-08-31] MEDS: niCARdipine 20 MG/200 ML MLS IVC SCH (18:37)
[2020-08-31] MEDS: NIFEdipine XL (24 HR) 60 MG TAB.ER.24 PO SCH (19:36)
[2020-09-01] MEDS: ALPRAZolam 0.5 MG TABLET PO PRN ×2 (01:50→08:05)
[2020-09-01 03:46] LABS: Basophils % 0.4 %; Hemoglobin 6.5 g/dL (11.5-15.4); Immature Granulocytes % 0.4 % (0-4)
[2020-09-01 03:48] LABS: Eosinophils % 0.8 %; Immature Platelets 1.9 % (1.1-6.1); Lymphocytes # 0.4 K/mcL (0.6-4.6); Lymphocytes % 17.1 %; Mean Corpuscular HGB Conc 32.5 g/dL (31.6-35.5); Mean Corpuscular Hemoglobin 31.7 pg (28.0-33.3); Mean Corpuscular Volume 97.6 fL (83.0-100.0); Mean Platelet Volume 9.3 fL (9.4-12.4); Monocytes # 0.4 K/mcL (0.0-1.3); Monocytes % 14.7 %; Neutrophils # 1.7 K/mcL (1.6-8.9); Red Blood Count 2.05 M/mcL (3.82-4.97); Segmented Neutrophils % 66.6 %; White Blood Count 2.5 K/mcL (4.3-11.1)
[2020-09-01] MEDS ORDERED: *HR* Labetalol 20 MG/4 ML SYRINGE IVP ONE (03:51)
[2020-09-01 03:57] LABS: Platelet Count 88 K/mcL (140-400)
[2020-09-01 03:58] LABS: Calcium 7.4 mg/dL (8.6-10.3); Magnesium 1.8 mg/dL (1.6-2.6); Phosphorous 4.2 mg/dL (2.7-4.5); Potassium 5.2 mEq/L (3.5-5.1)
[2020-09-01] MEDS ORDERED: 0.9 % Sodium Chloride 250 ML ONE (05:10)
[2020-09-01] MEDS: *HR* OxyCODONE/APAP 10/325 TABLET PO PRN ×2 (05:49→11:02)
[2020-09-01] MEDS: NIFEdipine XL (24 HR) 60 MG TAB.ER.24 PO SCH (08:05)
[2020-09-01] MEDS: Aspirin Enteric Coated 81 MG Tablet PO SCH (08:05)
[2020-09-01] MEDS: carvediloL 25 MG TABLET PO SCH (08:05)
[2020-09-01] MEDS: Insulin DETEMIR 100 UNIT/ML X5UNITS SUBQ SCH (08:05)
[2020-09-01] MEDS: predniSONE 10 MG TABLET PO SCH (08:05)
[2020-09-01] MEDS: hydrALAZINE 25 MG TABLET PO SCH (08:05)
[2020-09-01] MEDS: ISAVUCONAZONIUM SULFATE 186 MG PO SCH (08:07)
[2020-09-01] MEDS: Insulin LISPRO 300 UNITS/3 ML VIAL SUBQ SCH ×2 (08:08→11:03)
[2020-09-01] MEDS: Ondansetron 4 MG/2 ML VIAL IVP PRN (08:15)
[2020-09-01 11:09] VITALS: BP 132/47
== END 2020-09-01 14:35 | disposition home health service (06) | DRG 291 ==
LOC: 2NENU 00:42 → EMEROOARM 00:42 → SUATTDRO 03:26 → 2NENU 04:33 → SUATTDRO 08-30 18:12 → 2NNU 08-30 22:24 → 2ANU 08-31 13:23
PROVIDERS: ADMIT Student in an Organized Health Care Education/Training Program; ATTEND Internal Medicine

== ENCOUNTER 2020-09-10 23:15 | Inpatient (IN) ==
[2020-09-11 03:13] LABS: Basophils % 0.3 %; Eosinophils # 0.1 K/mcL (0.0-0.6); Hematocrit 20.1 % (35.3-44.9); Hemoglobin 6.8 g/dL (11.5-15.4); Lymphocytes # 0.4 K/mcL (0.6-4.6); Lymphocytes % 12.4 %; Mean Corpuscular HGB Conc 33.8 g/dL (31.6-35.5); Mean Corpuscular Hemoglobin 31.9 pg (28.0-33.3); Mean Corpuscular Volume 94.4 fL (83.0-100.0); Mean Platelet Volume 8.9 fL (9.4-12.4); Monocytes # 0.4 K/mcL (0.0-1.3); Neutrophils # 2.1 K/mcL (1.6-8.9); Platelet Count 105 K/mcL (140-400); Red Blood Count 2.13 M/mcL (3.82-4.97); Red Cell Distribution Width 16.2 % (11.5-14.5); Segmented Neutrophils % 71.3 %
[2020-09-11 03:31] LABS: Potassium 5.4 mEq/L (3.5-5.1)
[2020-09-11] MEDS ORDERED: Pantoprazole 80 MG in 0.9 % Sodium Chloride 50 ML IVPB ONE (06:32)
[2020-09-11] MEDS ORDERED: *HR* FentaNYL (PF) 100 MCG/2 ML VIAL IVP ONE (06:45)
[2020-09-11] MEDS ORDERED: Naloxone 0.4 MG/ML INJ IVP PRN (07:23)
[2020-09-11] MEDS ORDERED: *HR* Dextrose 50 % in Water (Vial) 50 ML VIAL IVP PRN (07:32)
[2020-09-11] MEDS ORDERED: Dextrose Gel 15 GM/37.5 ML TUBE PO PRN ×2 (07:32)
[2020-09-11] MEDS ORDERED: D5% in Water 1,000 ML IVC PRN (07:32)
[2020-09-11] MEDS: Ondansetron 4 MG/2 ML VIAL IVP PRN ×2 (08:17→22:49)
[2020-09-11] MEDS ORDERED: SODIUM ZIRCONIUM CYCLOSILICATE 5 GM POWD.PACK PO ONE ×2 (08:21→18:28)
[2020-09-11 08:31] LABS: Hematocrit 18.4 % (35.3-44.9)
[2020-09-11 09:01] LABS: Alanine Aminotransferase < 3 Units/L (7-52); Albumin 3.2 g/dL (3.5-5.7); Albumin/Globulin Ratio 1.3 (1.1-2.2); Alkaline Phosphatase 50 Units/L (34-104); Aspartate Amino Transferase 11 Units/L (13-39); Bilirubin,Direct 0.1 mg/dL (0.0-0.2); Bilirubin,Indirect 0.4 mg/dL (0.0-1.0); Bilirubin,Total 0.5 mg/dL (0.3-1.0); Globulin 2.4 g/dL (2.4-3.5); Total Protein 5.6 g/dL (6.4-8.9)
[2020-09-11 09:02] LABS: INR 1.2; Prothrombin Time 13.7 Seconds (9.4-12.1)
[2020-09-11 09:05] LABS: Activated Partial Thrombo Time 31.4 Seconds (26.0-36.0)
[2020-09-11] MEDS ORDERED: Insulin LISPRO 300 UNITS/3 ML VIAL SUBQ ONE (10:14)
[2020-09-11] MEDS: Insulin DETEMIR 100 UNIT/ML X5UNITS SUBQ SCH (12:21)
[2020-09-11] MEDS: Insulin LISPRO 300 UNITS/3 ML VIAL SUBQ SCH ×2 (12:21→18:27)
[2020-09-11 16:37] LABS: Hematocrit 19.9 % (35.3-44.9); Hemoglobin 6.8 g/dL (11.5-15.4)
[2020-09-11 18:24] LABS: % Iron Saturation 84 % (15-50); Iron 154 mcg/dL (50-170); Transferrin 131 mg/dL (203-362)
[2020-09-11 18:25] LABS: Alanine Aminotransferase < 3 Units/L (7-52); Albumin 3.4 g/dL (3.5-5.7); Albumin/Globulin Ratio 1.3 (1.1-2.2); Alkaline Phosphatase 57 Units/L (34-104); Aspartate Amino Transferase 11 Units/L (13-39); BUN/Creatinine Ratio 13 (6-26); Bilirubin,Total 0.5 mg/dL (0.3-1.0); Blood Urea Nitrogen 78 mg/dL (6-20); Carbon Dioxide 27 mEq/L (23-29); Chloride 90 mEq/L (98-107); Globulin 2.6 g/dL (2.4-3.5); Glucose 122 mg/dL (70-105); Osmolality,Calculated 299 (280-300); Potassium 5.5 mEq/L (3.5-5.1); Sodium 132 mEq/L (136-145); eGFR For African Americans 9 (> 60); eGFR For Non-African Americans 7 (> 60)
[2020-09-11] MEDS ORDERED: 0.9 % Sodium Chloride 250 ML IVC SCH (18:30)
[2020-09-11] MEDS: predniSONE 20 MG TABLET PO SCH (18:31)
[2020-09-11] MEDS: Pantoprazole 40 MG VIAL IVP SCH (18:31)
[2020-09-11] MEDS: ALPRAZolam 0.5 MG TABLET PO PRN (18:31)
[2020-09-11] MEDS: Thiamine (B-1) 100 MG TABLET PO SCH (18:31)
[2020-09-11] MEDS ORDERED: Insulin DETEMIR 100 UNIT/ML X5UNITS SUBQ SCH (21:00)
[2020-09-11] MEDS ORDERED: CloNIDine Patch 0.3 MG PATCH (WEEKLY) TD SCH (21:45)
[2020-09-12] MEDS: Insulin LISPRO 300 UNITS/3 ML VIAL SUBQ SCH ×3 (00:16→13:23)
[2020-09-12 00:43] LABS: Hematocrit 24.2 % (35.3-44.9)
[2020-09-12 00:45] LABS: Hemoglobin 8.5 g/dL (11.5-15.4)
[2020-09-12] MEDS ORDERED: *HR* Metoprolol 5 MG/5 ML VIAL IVP ONE (02:24)
[2020-09-12] MEDS ORDERED: *HR* Dextrose 50 % in Water (Vial) 50 ML VIAL IVP ONE (02:33)
[2020-09-12] MEDS ORDERED: Albuterol 2.5 MG/3 ML NEBULIZER IH ONE (02:33)
[2020-09-12] MEDS ORDERED: Insulin Human Regular 10 UNIT in 0.9 % Sodium Chloride 10 ML IV ONE (02:34)
[2020-09-12] MEDS ORDERED: SODIUM ZIRCONIUM CYCLOSILICATE 5 GM POWD.PACK PO ONE (02:38)
[2020-09-12] MEDS ORDERED: Albuterol 2.5 MG/3 ML NEBULIZER ONE (03:18)
[2020-09-12 06:01] LABS: Basophils % 0.2 %; Hematocrit 23.4 % (35.3-44.9); Hemoglobin 7.8 g/dL (11.5-15.4); Immature Granulocytes % 0.2 % (0-4); Lymphocytes # 0.2 K/mcL (0.6-4.6); Lymphocytes % 5.4 %; Mean Corpuscular HGB Conc 33.3 g/dL (31.6-35.5); Mean Corpuscular Hemoglobin 30.4 pg (28.0-33.3); Mean Corpuscular Volume 91.1 fL (83.0-100.0); Mean Platelet Volume 9.4 fL (9.4-12.4); Monocytes # 0.2 K/mcL (0.0-1.3); Monocytes % 5.9 %; Neutrophils # 3.6 K/mcL (1.6-8.9); Platelet Count 109 K/mcL (140-400); Red Blood Count 2.57 M/mcL (3.82-4.97); Segmented Neutrophils % 88.3 %; White Blood Count 4.1 K/mcL (4.3-11.1)
[2020-09-12] MEDS: Pantoprazole 40 MG VIAL IVP SCH ×2 (06:28→17:30)
[2020-09-12 06:53] LABS: Alanine Aminotransferase < 3 Units/L (7-52); Albumin 3.4 g/dL (3.5-5.7); Albumin/Globulin Ratio 1.3 (1.1-2.2); Alkaline Phosphatase 54 Units/L (34-104); Aspartate Amino Transferase 12 Units/L (13-39); BUN/Creatinine Ratio 12 (6-26); Bilirubin,Total 0.5 mg/dL (0.3-1.0); Blood Urea Nitrogen 81 mg/dL (6-20); Calcium 7.8 mg/dL (8.6-10.3); Carbon Dioxide 21 mEq/L (23-29); Chloride 90 mEq/L (98-107); Globulin 2.6 g/dL (2.4-3.5); Glucose 220 mg/dL (70-105); Osmolality,Calculated 297 (280-300); Potassium 6.4 mEq/L (3.5-5.1); Sodium 128 mEq/L (136-145); eGFR For African Americans 8 (> 60); eGFR For Non-African Americans 7 (> 60)
[2020-09-12] MEDS ORDERED: *HR* Heparin 10,000 UNIT/10 ML VIAL IV PRN (07:26)
[2020-09-12] MEDS ORDERED: 0.9 % Sodium Chloride 250 ML IVC PRN (07:26)
[2020-09-12] MEDS ORDERED: 0.9 % Sodium Chloride 1,000 ML PRIME SCH (07:30)
[2020-09-12] MEDS: predniSONE 20 MG TABLET PO SCH (08:16)
[2020-09-12] MEDS: Thiamine (B-1) 100 MG TABLET PO SCH (08:16)
[2020-09-12] MEDS: Insulin DETEMIR 100 UNIT/ML X5UNITS SUBQ SCH (08:16)
[2020-09-12] MEDS: carvediloL 25 MG TABLET PO SCH ×3 (08:35→17:30)
[2020-09-12] MEDS: ALPRAZolam 0.5 MG TABLET PO PRN ×2 (09:59→21:40)
[2020-09-12] MEDS ORDERED: EPOETIN ALFA IJ SCH (13:15)
[2020-09-12] MEDS ORDERED: Calcium Acetate 667 MG CAPSULE PO PRN (13:15)
[2020-09-12] MEDS ORDERED: Lidocaine -MPF 2% 5 ML VIAL ONE (13:32)
[2020-09-12] MEDS ORDERED: *HR* Propofol 200 MG/20 ML VIAL IVP ONE ×2 (13:32→14:33)
[2020-09-12 13:51] LABS: VBG HCO3 19 mEq/L (21-27); VBG PCO2 31 mmHg (41-51); VBG PO2 76 mmHg (25-50)
[2020-09-12] MEDS ORDERED: Ergocalciferol (VIT D2) 50,000 UNIT (1.25MG) CAP PO SCH (14:00)
[2020-09-12] MEDS: hydrALAZINE 25 MG TABLET PO SCH ×2 (15:32→21:40)
[2020-09-12] MEDS ORDERED: Ipratropium/Albuterol Neb 3 ML IH PRN (17:00)
[2020-09-12] MEDS: Calcium Acetate 667 MG CAPSULE PO SCH (17:30)
[2020-09-12 17:59] LABS: Hematocrit 21.5 % (35.3-44.9); Hemoglobin 7.1 g/dL (11.5-15.4); Mean Corpuscular Hemoglobin 30.9 pg (28.0-33.3); Mean Corpuscular Volume 93.5 fL (83.0-100.0); Mean Platelet Volume 9.2 fL (9.4-12.4); Red Blood Count 2.3 M/mcL (3.82-4.97); Red Cell Distribution Width 16.6 % (11.5-14.5); White Blood Count 3.5 K/mcL (4.3-11.1)
[2020-09-12 18:55] LABS: Potassium 3.9 mEq/L (3.5-5.1); Triiodothyronine (T3) Total 0.36 ng/mL (0.87-1.78)
[2020-09-12] MEDS: Ondansetron 4 MG/2 ML VIAL IVP PRN (20:29)
[2020-09-13] MEDS: Ondansetron 4 MG/2 ML VIAL IVP PRN ×3 (04:14→16:39)
[2020-09-13 05:20] LABS: Mean Corpuscular Volume 95.4 fL (83.0-100.0)
[2020-09-13 05:22] LABS: Hematocrit 20.9 % (35.3-44.9); Hemoglobin 6.6 g/dL (11.5-15.4); Immature Platelets 1.7 % (1.1-6.1); Mean Corpuscular HGB Conc 31.6 g/dL (31.6-35.5); Mean Corpuscular Hemoglobin 30.1 pg (28.0-33.3); Mean Platelet Volume 9.4 fL (9.4-12.4); Red Blood Count 2.19 M/mcL (3.82-4.97); Red Cell Distribution Width 16.7 % (11.5-14.5); White Blood Count 2.5 K/mcL (4.3-11.1)
[2020-09-13 05:39] LABS: Estimated Average Glucose 126 mg/dl
[2020-09-13 05:41] LABS: Phosphorous 6.6 mg/dL (2.7-4.5)
[2020-09-13 05:42] LABS: Calcium 8.3 mg/dL (8.6-10.3); Potassium 4.3 mEq/L (3.5-5.1)
[2020-09-13] MEDS: hydrALAZINE 25 MG TABLET PO SCH ×3 (05:59→21:34)
[2020-09-13] MEDS: Pantoprazole 40 MG VIAL IVP SCH ×2 (06:00→17:38)
[2020-09-13] MEDS: Insulin LISPRO 300 UNITS/3 ML VIAL SUBQ SCH ×3 (07:35→16:45)
[2020-09-13] MEDS ORDERED: *HR* Heparin 10,000 UNIT/10 ML VIAL IV PRN (07:37)
[2020-09-13] MEDS ORDERED: 0.9 % Sodium Chloride 250 ML IVC PRN (07:37)
[2020-09-13] MEDS: carvediloL 25 MG TABLET PO SCH ×2 (07:42→16:35)
[2020-09-13] MEDS: Calcium Acetate 667 MG CAPSULE PO SCH ×3 (07:42→17:38)
[2020-09-13] MEDS ORDERED: Levothyroxine 25 MCG TABLET PO SCH (07:52)
[2020-09-13] MEDS: Renal Vitamin 1 CAP CAPSULE PO SCH (08:10)
[2020-09-13] MEDS: Insulin DETEMIR 100 UNIT/ML X5UNITS SUBQ SCH (08:10)
[2020-09-13] MEDS: predniSONE 20 MG TABLET PO SCH (08:10)
[2020-09-13] MEDS: Thiamine (B-1) 100 MG TABLET PO SCH (08:10)
[2020-09-13] MEDS: ALPRAZolam 0.5 MG TABLET PO PRN ×2 (08:10→20:08)
[2020-09-13] MEDS ORDERED: predniSONE 10 MG TABLET PO SCH (09:00)
[2020-09-13] MEDS ORDERED: NIFEdipine XL (24 HR) 60 MG TAB.ER.24 PO SCH (14:30)
[2020-09-13] MEDS ORDERED: Artificial Tears SOLN 15 ML BOTTLE BOTH EYES PRN (14:35)
[2020-09-13] MEDS ORDERED: Saline Nasal Spray 44 ML BOTTLE NS PRN (14:35)
[2020-09-13] MEDS: NIFEdipine XL (24 HR) 60 MG TAB.ER.24 PO SCH (15:34)
[2020-09-13] MEDS: Sucralfate 1 GM TABLET PO SCH ×2 (15:59→21:34)
[2020-09-13] MEDS: Lactobacillus 1 EACH CAP.SPRINK PO SCH (21:34)
[2020-09-14] MEDS: Ondansetron 4 MG/2 ML VIAL IVP PRN ×2 (01:38→14:32)
[2020-09-14 05:40] LABS: Mean Corpuscular Hemoglobin 32.1 pg (28.0-33.3); Mean Corpuscular Volume 94.3 fL (83.0-100.0); Mean Platelet Volume 9.6 fL (9.4-12.4); Platelet Count 111 K/mcL (140-400); Red Blood Count 2.65 M/mcL (3.82-4.97); Red Cell Distribution Width 15.5 % (11.5-14.5)
[2020-09-14 05:41] LABS: Hemoglobin 8.5 g/dL (11.5-15.4); White Blood Count 4.6 K/mcL (4.3-11.1)
[2020-09-14] MEDS: Pantoprazole 40 MG VIAL IVP SCH (05:56)
[2020-09-14] MEDS: hydrALAZINE 25 MG TABLET PO SCH ×3 (05:57→21:35)
[2020-09-14 06:01] LABS: Magnesium 2.1 mg/dL (1.6-2.6); Phosphorous 7.4 mg/dL (2.7-4.5)
[2020-09-14 06:03] LABS: Calcium 8.4 mg/dL (8.6-10.3); Potassium 5.1 mEq/L (3.5-5.1)
[2020-09-14] MEDS: Insulin LISPRO 300 UNITS/3 ML VIAL SUBQ SCH ×3 (06:51→18:52)
[2020-09-14] MEDS: Thiamine (B-1) 100 MG TABLET PO SCH (07:15)
[2020-09-14] MEDS: Sucralfate 1 GM TABLET PO SCH ×3 (07:15→20:07)
[2020-09-14] MEDS: Renal Vitamin 1 CAP CAPSULE PO SCH (07:15)
[2020-09-14] MEDS: Calcium Acetate 667 MG CAPSULE PO SCH ×3 (07:15→17:06)
[2020-09-14] MEDS: Lactobacillus 1 EACH CAP.SPRINK PO SCH ×2 (07:15→20:07)
[2020-09-14] MEDS: predniSONE 20 MG TABLET PO SCH (07:15)
[2020-09-14] MEDS: Insulin DETEMIR 100 UNIT/ML X5UNITS SUBQ SCH ×2 (07:15→19:59)
[2020-09-14] MEDS ORDERED: 0.9 % Sodium Chloride 250 ML IVC PRN (07:32)
[2020-09-14] MEDS ORDERED: *HR* Heparin 10,000 UNIT/10 ML VIAL IV PRN (07:32)
[2020-09-14] MEDS ORDERED: 0.9 % Sodium Chloride 1,000 ML PRIME SCH (07:45)
[2020-09-14] MEDS ORDERED: 0.9 % Sodium Chloride 2,000 ML ONE (08:02)
[2020-09-14] MEDS ORDERED: Levothyroxine 25 MCG TABLET PO ONE (11:59)
[2020-09-14] MEDS: carvediloL 25 MG TABLET PO SCH ×2 (13:14→17:07)
[2020-09-14] MEDS ORDERED: 0.9 % Sodium Chloride 1,000 ML IVC SCH (13:15)
[2020-09-14] MEDS: NIFEdipine XL (24 HR) 60 MG TAB.ER.24 PO SCH (14:19)
[2020-09-14] MEDS ORDERED: *HR* Promethazine 25 MG/ML VIAL IM ONE (20:46)
[2020-09-14] MEDS: ALPRAZolam 0.5 MG TABLET PO PRN (21:36)
[2020-09-15 04:50] LABS: Hematocrit 23.7 % (35.3-44.9); Mean Corpuscular HGB Conc 33.8 g/dL (31.6-35.5); Mean Corpuscular Hemoglobin 30.9 pg (28.0-33.3); Mean Corpuscular Volume 91.5 fL (83.0-100.0); Red Blood Count 2.59 M/mcL (3.82-4.97); White Blood Count 2.6 K/mcL (4.3-11.1)
[2020-09-15 04:51] LABS: Platelet Count 96 K/mcL (140-400)
[2020-09-15 05:07] LABS: Magnesium 1.8 mg/dL (1.6-2.6); Phosphorous 3.7 mg/dL (2.7-4.5)
[2020-09-15 05:09] LABS: Calcium 7.9 mg/dL (8.6-10.3); Potassium 3.6 mEq/L (3.5-5.1)
[2020-09-15] MEDS: hydrALAZINE 25 MG TABLET PO SCH ×3 (05:58→22:37)
[2020-09-15] MEDS: Insulin LISPRO 300 UNITS/3 ML VIAL SUBQ SCH ×3 (08:26→17:45)
[2020-09-15] MEDS: Insulin DETEMIR 100 UNIT/ML X5UNITS SUBQ SCH (08:44)
[2020-09-15] MEDS: Ondansetron 4 MG/2 ML VIAL IVP PRN (08:45)
[2020-09-15] MEDS: carvediloL 25 MG TABLET PO SCH ×2 (10:32→18:02)
[2020-09-15] MEDS: Renal Vitamin 1 CAP CAPSULE PO SCH (10:32)
[2020-09-15] MEDS: Thiamine (B-1) 100 MG TABLET PO SCH (10:33)
[2020-09-15] MEDS: Lactobacillus 1 EACH CAP.SPRINK PO SCH ×2 (10:33→22:36)
[2020-09-15] MEDS: NIFEdipine XL (24 HR) 60 MG TAB.ER.24 PO SCH (10:33)
[2020-09-15] MEDS: predniSONE 20 MG TABLET PO SCH (10:33)
[2020-09-15] MEDS: Sucralfate 1 GM TABLET PO SCH ×3 (10:34→15:32)
[2020-09-15] MEDS: Fluticasone Propionate Nasal 50 MCG/SPRAY BOTTLE NS SCH (10:34)
[2020-09-15] MEDS: Calcium Acetate 667 MG CAPSULE PO SCH ×3 (10:35→18:02)
[2020-09-15] MEDS: ALPRAZolam 0.5 MG TABLET PO PRN ×2 (10:38→22:37)
[2020-09-15] MEDS ORDERED: Melatonin 3 MG TABLET PO PRN (16:19)
[2020-09-15] MEDS ORDERED: Insulin DETEMIR 100 UNIT/ML X5UNITS SUBQ SCH (21:00)
[2020-09-16 04:48] LABS: Hemoglobin 7.9 g/dL (11.5-15.4); Red Cell Distribution Width 14.4 % (11.5-14.5)
[2020-09-16 04:49] LABS: Hematocrit 23.7 % (35.3-44.9); Immature Platelets 2.3 % (1.1-6.1); Mean Corpuscular HGB Conc 33.3 g/dL (31.6-35.5); Mean Corpuscular Volume 92.9 fL (83.0-100.0); Mean Platelet Volume 9.3 fL (9.4-12.4); Red Blood Count 2.55 M/mcL (3.82-4.97); White Blood Count 2.5 K/mcL (4.3-11.1)
[2020-09-16 05:17] LABS: Calcium 8.2 mg/dL (8.6-10.3); Potassium 4.8 mEq/L (3.5-5.1)
[2020-09-16] MEDS: hydrALAZINE 25 MG TABLET PO SCH ×2 (05:35→13:40)
[2020-09-16] MEDS: carvediloL 25 MG TABLET PO SCH ×2 (07:28→17:39)
[2020-09-16] MEDS: Renal Vitamin 1 CAP CAPSULE PO SCH (07:28)
[2020-09-16] MEDS: Thiamine (B-1) 100 MG TABLET PO SCH (07:28)
[2020-09-16] MEDS: predniSONE 20 MG TABLET PO SCH (07:28)
[2020-09-16] MEDS: Calcium Acetate 667 MG CAPSULE PO SCH ×3 (07:28→17:39)
[2020-09-16] MEDS: Sucralfate 1 GM TABLET PO SCH ×3 (07:29→16:02)
[2020-09-16] MEDS: Fluticasone Propionate Nasal 50 MCG/SPRAY BOTTLE NS SCH (07:29)
[2020-09-16] MEDS: Lactobacillus 1 EACH CAP.SPRINK PO SCH (07:29)
[2020-09-16] MEDS ORDERED: 0.9 % Sodium Chloride 250 ML IVC PRN (07:58)
[2020-09-16] MEDS: Insulin LISPRO 300 UNITS/3 ML VIAL SUBQ SCH ×3 (07:58→17:39)
[2020-09-16] MEDS ORDERED: *HR* Heparin 10,000 UNIT/10 ML VIAL IV PRN (07:58)
[2020-09-16] MEDS ORDERED: 0.9 % Sodium Chloride 1,000 ML PRIME SCH (08:00)
[2020-09-16] MEDS ORDERED: 0.9 % Sodium Chloride 2,000 ML ONE (08:21)
[2020-09-16] MEDS ORDERED: NIFEdipine XL (24 HR) 30 MG TAB.ER.24 PO SCH (09:00)
[2020-09-16] MEDS ORDERED: Insulin DETEMIR 100 UNIT/ML X5UNITS SUBQ SCH (09:00)
[2020-09-16 15:53] VITALS: BP 115/65
[2020-09-16 17:15] LABS: Influenza A PCR Negative (Negative); Influenza B PCR Negative (Negative); Resp. Syncytial Virus PCR Negative (Negative)
[2020-09-16 17:18] LABS: SARS-CoV-2 by PCR (In House) Negative (Negative)
[2020-09-16] MEDS: ALPRAZolam 0.5 MG TABLET PO PRN (17:47)
== END 2020-09-16 19:30 | disposition other institution (70) | DRG 391 ==
LOC: CDU 23:15 → EMEROOARM 23:15 → SUATTDRO 09-11 07:22 → CDU 09-11 07:55 → 3ANU 09-11 10:20
PROVIDERS: ADMIT Internal Medicine; ATTEND Internal Medicine

== ENCOUNTER 2020-10-07 11:04 | Inpatient (IN) ==
[2020-10-07] MEDS ORDERED: Ondansetron 4 MG/2 ML VIAL IVP ONE ×2 (11:46→16:21)
[2020-10-07] MEDS ORDERED: 0.9 % Sodium Chloride 500 ML IVC ONE (11:46)
[2020-10-07 13:12] LABS: Albumin 3.2 g/dL (3.5-5.7); Albumin/Globulin Ratio 1.3 (1.1-2.2); Bilirubin,Direct 0.1 mg/dL (0.0-0.2); Bilirubin,Indirect 0.3 mg/dL (0.0-1.0); Bilirubin,Total 0.4 mg/dL (0.3-1.0); Globulin 2.4 g/dL (2.4-3.5); Potassium 3.3 mEq/L (3.5-5.1); Total Protein 5.6 g/dL (6.4-8.9)
[2020-10-07] MEDS: 0.9 % Sodium Chloride 1,000 ML IVC SCH ×2 (13:25→15:36)
[2020-10-07 13:28] LABS: Hematocrit 25.3 % (35.3-44.9); Hemoglobin 7.8 g/dL (11.5-15.4); Immature Platelets 2.1 % (1.1-6.1); Mean Corpuscular HGB Conc 30.8 g/dL (31.6-35.5); Mean Corpuscular Hemoglobin 33.2 pg (28.0-33.3); Mean Corpuscular Volume 107.7 fL (83.0-100.0); Mean Platelet Volume 9.6 fL (9.4-12.4); Red Blood Count 2.35 M/mcL (3.82-4.97); Red Cell Distribution Width 20.4 % (11.5-14.5); White Blood Count 3.5 K/mcL (4.3-11.1)
[2020-10-07] MEDS ORDERED: Naloxone 0.4 MG/ML INJ IVP PRN (15:35)
[2020-10-07] MEDS ORDERED: Insulin Regular, Human 100 UNIT/ML IV PRN ×2 (15:36)
[2020-10-07] MEDS ORDERED: D5% in 0.45% NACL 1,000 ML IVC PRN (15:36)
[2020-10-07] MEDS ORDERED: Insulin Regular, Human 100 UNIT/ML IV STA (16:02)
[2020-10-07 16:45] LABS: ABG Base Excess -15 mEq/L (-2 to 3); ABG HCO3 11 mEq/L (21-27); ABG Oxygen Saturation 98 % (95-98); ABG PCO2 24 mmHg (35-45); ABG PH 7.25 pH Units (7.32-7.45); ABG PO2 124 mmHg (85-104); ABG TCO2 11 mEq/L (20-26)
[2020-10-07 16:55] LABS: VBG HCO3 9 mEq/L (21-27); VBG PCO2 23 mmHg (41-51); VBG PH 7.18 pH Units (7.32-7.42); VBG PO2 135 mmHg (25-50)
[2020-10-07] MEDS: *HR* HYDROmorphone (PF) 1 MG/ML SYRINGE IVP PRN (17:02)
[2020-10-07] MEDS: 0.45 % Sodium Chloride w/KCl 20 MEQ/1,000 ML MLS IVC SCH ×2 (17:14→20:00)
[2020-10-07 17:24] LABS: Calcium 6.1 mg/dL (8.6-10.3); Potassium 3.1 mEq/L (3.5-5.1)
[2020-10-07 17:25] LABS: Troponin I 0.07 ng/mL (< 0.04)
[2020-10-07 17:36] LABS: Adenovirus Not Detected (Not Detect); Bordetella Pertussis Not Detected (Not Detect); Chlamydophila pneumoniae Not Detected (Not Detect); Coronavirus 229E Not Detected (Not Detect); Coronavirus HKU1 Not Detected (Not Detect); Coronavirus NL63 Not Detected (Not Detect); Coronavirus OC43 Not Detected (Not Detect); Human Metapneumovirus Not Detected (Not Detect); Human Rhinovirus/Enterovirus Not Detected (Not Detect); Influenza A Subtype 2009 H1 Not Detected (Not Detect); Influenza B Not Detected (Not Detect); Mycoplasma pneumoniae Not Detected (Not Detect); Parainfluenza Virus 1 Not Detected (Not Detect); Parainfluenza Virus 2 Not Detected (Not Detect); Parainfluenza Virus 3 Not Detected (Not Detect); Parainfluenza Virus 4 Not Detected (Not Detect); Respiratory Syncytial Virus Not Detected (Not Detect); SARS-CoV-2 Not Detected (Not Detect)
[2020-10-07 18:45] LABS: Calcium 7.4 mg/dL (8.6-10.3); Potassium 3.9 mEq/L (3.5-5.1)
[2020-10-07] MEDS ORDERED: Piperacillin/Tazobactam 2.25 GM in 0.9 % Sodium Chloride Mini Bag 100 ML IVPB SCH (19:00)
[2020-10-07] MEDS ORDERED: 0.9 % Sodium Chloride 1,000 ML IVC PRN (19:26)
[2020-10-07] MEDS ORDERED: 0.9 % Sodium Chloride w KCl 20 MEQ/1,000 ML MLS IVC PRN ×2 (19:26)
[2020-10-07] MEDS: Prochlorperazine 10 MG/2 ML VIAL IM PRN (19:55)
[2020-10-07] MEDS: Piperacillin/Tazobactam 3.375 GM in 0.9 % Sodium Chloride Mini Bag 100 ML IVPB SCH (19:57)
[2020-10-07] MEDS: Calcium Gluconate 1gm/50mL 1 GM/50 ML BAG IVPB SCH (19:58)
[2020-10-07] MEDS: Sucralfate 1 GM TABLET PO SCH (20:01)
[2020-10-07 20:36] LABS: VBG HCO3 17 mEq/L (21-27); VBG PCO2 36 mmHg (41-51); VBG PH 7.27 pH Units (7.32-7.42); VBG PO2 167 mmHg (25-50)
[2020-10-07 20:41] LABS: Hematocrit 22.5 % (35.3-44.9); Hemoglobin 7.6 g/dL (11.5-15.4)
[2020-10-07 20:51] LABS: Calcium 7.4 mg/dL (8.6-10.3); Potassium 3.4 mEq/L (3.5-5.1)
[2020-10-07] MEDS: D5% in 0.45% NACL w KCl 20 MEQ/1,000 ML MLS IVC PRN (23:06)
[2020-10-07] MEDS: Ondansetron 4 MG/2 ML VIAL IVP PRN (23:14)
[2020-10-07 23:42] LABS: Calcium 7.5 mg/dL (8.6-10.3); Potassium 3.3 mEq/L (3.5-5.1)
[2020-10-07 23:47] LABS: Troponin I 0.14 ng/mL (< 0.04)
[2020-10-08] MEDS ORDERED: Haloperidol Lactate 5 MG/ML VIAL IVP ONE (01:01)
[2020-10-08] MEDS: *HR* HYDROmorphone (PF) 1 MG/ML SYRINGE IVP PRN ×2 (01:37→12:07)
[2020-10-08] MEDS: 0.45 % Sodium Chloride w/KCl 20 MEQ/1,000 ML MLS IVC SCH ×11 (02:01→10:58)
[2020-10-08] MEDS: Calcium Gluconate 1gm/50mL 1 GM/50 ML BAG IVPB SCH (02:05)
[2020-10-08] MEDS: 0.9 % Sodium Chloride w KCl 20 MEQ/1,000 ML MLS IVC SCH ×3 (02:06→02:07)
[2020-10-08] MEDS: 0.9 % Sodium Chloride 1,000 ML IVC SCH ×4 (02:07→02:10)
[2020-10-08 02:21] LABS: Calcium 7.4 mg/dL (8.6-10.3); Potassium 3.2 mEq/L (3.5-5.1)
[2020-10-08] MEDS: D5% in 0.45% NACL w KCl 20 MEQ/1,000 ML MLS IVC PRN ×2 (04:07→08:40)
[2020-10-08] MEDS: Piperacillin/Tazobactam 3.375 GM in 0.9 % Sodium Chloride Mini Bag 100 ML IVPB SCH ×2 (04:08→12:24)
[2020-10-08 04:31] LABS: VBG HCO3 28 mEq/L (21-27); VBG PCO2 49 mmHg (41-51); VBG PH 7.36 pH Units (7.32-7.42); VBG PO2 161 mmHg (25-50)
[2020-10-08] MEDS: Prochlorperazine 10 MG/2 ML VIAL IM PRN ×2 (04:32→11:58)
[2020-10-08 04:53] LABS: Albumin 2.7 g/dL (3.5-5.7); Albumin/Globulin Ratio 1.2 (1.1-2.2); Bilirubin,Total 0.3 mg/dL (0.3-1.0); Calcium 7.4 mg/dL (8.6-10.3); Globulin 2.3 g/dL (2.4-3.5); Potassium 3.2 mEq/L (3.5-5.1)
[2020-10-08 04:59] LABS: Troponin I 0.13 ng/mL (< 0.04)
[2020-10-08] MEDS: *HR* Dextrose 50 % in Water (Vial) 50 ML VIAL IVP PRN ×8 (05:19→17:54)
[2020-10-08 05:54] LABS: Estimated Average Glucose 105 mg/dl; Hemoglobin A1C 5.3 %
[2020-10-08] MEDS: Ondansetron 4 MG/2 ML VIAL IVP PRN ×3 (06:52→21:30)
[2020-10-08] MEDS ORDERED: Dextrose Gel 15 GM/37.5 ML TUBE PO PRN (07:17)
[2020-10-08] MEDS ORDERED: D5% in Water 1,000 ML IVC PRN (07:17)
[2020-10-08] MEDS: Sucralfate 1 GM TABLET PO SCH ×3 (07:30→18:50)
[2020-10-08] MEDS ORDERED: 0.9 % Sodium Chloride 250 ML IVC PRN (07:40)
[2020-10-08] MEDS ORDERED: *HR* Heparin 10,000 UNIT/10 ML VIAL IV PRN (07:40)
[2020-10-08] MEDS ORDERED: 0.9 % Sodium Chloride 1,000 ML PRIME SCH (07:45)
[2020-10-08] MEDS: Pantoprazole 40 MG VIAL IVP SCH ×2 (07:51→20:09)
[2020-10-08] MEDS ORDERED: Insulin DETEMIR 100 UNIT/ML X5UNITS SUBQ SCH (08:15)
[2020-10-08] MEDS: Insulin LISPRO 300 UNITS/3 ML VIAL SUBQ SCH ×4 (08:20→13:01)
[2020-10-08] MEDS ORDERED: *HR* LORazepam 2 MG/ML VIAL IVP ONE ×2 (12:17→13:06)
[2020-10-08] MEDS ORDERED: Artificial Tears SOLN 15 ML BOTTLE BOTH EYES PRN (17:45)
[2020-10-08] MEDS ORDERED: Saline Nasal Spray 44 ML BOTTLE NS PRN (17:45)
[2020-10-08] MEDS ORDERED: Fluticasone Propionate Nasal 50 MCG/SPRAY BOTTLE NS PRN (17:45)
[2020-10-08] MEDS ORDERED: Melatonin 3 MG TABLET PO PRN (17:45)
[2020-10-08] MEDS: Morphine Sulfate 2 MG/ML SYRINGE IVP PRN ×2 (17:49→20:41)
[2020-10-08] MEDS: carvediloL 25 MG TABLET PO SCH (18:50)
[2020-10-08] MEDS: NIFEdipine XL (24 HR) 30 MG TAB.ER.24 PO SCH ×2 (20:03→22:25)
[2020-10-08] MEDS ORDERED: Insulin LISPRO 300 UNITS/3 ML VIAL SUBQ SCH (21:00)
[2020-10-08] MEDS ORDERED: *HR* Promethazine 25 MG/ML VIAL IM ONE ×2 (21:44→23:45)
[2020-10-08] MEDS: ALPRAZolam 0.5 MG TABLET PO PRN (23:51)
[2020-10-09] MEDS ORDERED: Piperacillin/Tazobactam 3.375 GM in 0.9 % Sodium Chloride Mini Bag 100 ML IVPB SCH
[2020-10-09] MEDS: hydrALAZINE 25 MG TABLET PO SCH ×3 (02:39→15:01)
[2020-10-09] MEDS: Morphine Sulfate 2 MG/ML SYRINGE IVP PRN ×5 (03:39→19:58)
[2020-10-09] MEDS: Ondansetron 4 MG/2 ML VIAL IVP PRN ×3 (03:39→17:37)
[2020-10-09 05:39] LABS: Hemoglobin 6.8 g/dL (11.5-15.4); Mean Corpuscular Volume 100.5 fL (83.0-100.0); Red Cell Distribution Width 18.1 % (11.5-14.5)
[2020-10-09 05:41] LABS: Eosinophils # 0.1 K/mcL (0.0-0.6); Eosinophils % 2.9 %; Hematocrit 20.5 % (35.3-44.9); Lymphocytes # 0.2 K/mcL (0.6-4.6); Lymphocytes % 14.1 %; Mean Corpuscular HGB Conc 33.2 g/dL (31.6-35.5); Mean Corpuscular Hemoglobin 33.3 pg (28.0-33.3); Mean Platelet Volume 9.5 fL (9.4-12.4); Monocytes # 0.2 K/mcL (0.0-1.3); Monocytes % 14.1 %; Neutrophils # 1.2 K/mcL (1.6-8.9); Red Blood Count 2.04 M/mcL (3.82-4.97); Segmented Neutrophils % 68.9 %; White Blood Count 1.7 K/mcL (4.3-11.1)
[2020-10-09 05:42] LABS: Platelet Count 41 K/mcL (140-400)
[2020-10-09 06:00] LABS: Adenovirus F 40/41 PCR Not detected (Not detect); Astrovirus PCR Not detected (Not detect); C.difficile Toxin A/B Gene PCR Not detected (Not detect); Campylobacter by PCR Not detected (Not detect); Cryptosporidium by PCR Not detected (Not detect); Cyclospora cayetanensis PCR Not detected (Not detect); Entamoeba histolytica PCR Not detected (Not detect); Enteroaggregative E.coli(EAEC) Not detected (Not detect); Enteropathogenic E.coli(EPEC) Not detected (Not detect); Enterotoxigenic E.coli (ETEC) Not detected (Not detect); Giardia lamblia PCR Not detected (Not detect); Norovirus GI/GII PCR Not detected (Not detect); Plesiomonas shigelloides PCR Not detected (Not detect); Rotavirus A PCR Not detected (Not detect); Salmonella PCR Not detected (Not detect); Sapovirus PCR Not detected (Not detect); Shig/EnteroinvasiveE coli EIEC Not detected (Not detect); Shigalike tox-prod E coli STEC Not detected (Not detect); Vibrio PCR Not detected (Not detect); Vibrio cholerae PCR Not detected (Not detect); Yersinia enterocolitica PCR Not detected (Not detect)
[2020-10-09 06:01] LABS: E. coli O157 by PCR Not detected (Not detect)
[2020-10-09] MEDS: Pantoprazole 40 MG VIAL IVP SCH ×2 (08:23→19:58)
[2020-10-09] MEDS: NIFEdipine XL (24 HR) 30 MG TAB.ER.24 PO SCH ×2 (08:24→19:58)
[2020-10-09] MEDS: Aspirin 81 MG TAB.CHEW PO SCH (08:24)
[2020-10-09] MEDS: Renal Vitamin 1 CAP CAPSULE PO SCH (08:25)
[2020-10-09] MEDS: carvediloL 25 MG TABLET PO SCH ×2 (08:25→17:21)
[2020-10-09] MEDS: Sucralfate 1 GM TABLET PO SCH ×3 (08:25→15:00)
[2020-10-09] MEDS: Patient Taking Own Medication 1 EACH PO SCH ×3 (08:30→17:47)
[2020-10-09] MEDS ORDERED: 0.9 % Sodium Chloride 250 ML ONE (09:10)
[2020-10-09 09:14] LABS: Calcium 7.4 mg/dL (8.6-10.3); Potassium 4.2 mEq/L (3.5-5.1)
[2020-10-09] MEDS: cefTRIAXone 1,000 MG in Water for inj. (sterile) 10 ML IVP SCH (11:31)
[2020-10-09] MEDS: MetroNIDAZOLE 500 MG/100 ML 500 MG/100 ML BAG IVPB SCH ×2 (11:32→19:01)
[2020-10-09] MEDS ORDERED: Insulin DETEMIR 100 UNIT/ML X5UNITS SUBQ SCH (11:45)
[2020-10-09] MEDS ORDERED: Insulin Human Regular 10 UNIT in 0.9 % Sodium Chloride 10 ML IV ONE (16:18)
[2020-10-09] MEDS: Insulin DETEMIR 100 UNIT/ML X5UNITS SUBQ SCH (17:20)
[2020-10-09] MEDS ORDERED: Insulin LISPRO 300 UNITS/3 ML VIAL SUBQ SCH (21:00)
[2020-10-09] MEDS: ALPRAZolam 0.5 MG TABLET PO PRN (21:11)
[2020-10-09] MEDS ORDERED: Insulin LISPRO 300 UNITS/3 ML VIAL SUBQ ONE (23:35)
[2020-10-10] MEDS: hydrALAZINE 25 MG TABLET PO SCH ×3 (00:01→16:45)
[2020-10-10] MEDS: Ondansetron 4 MG/2 ML VIAL IVP PRN ×2 (02:41→08:57)
[2020-10-10] MEDS: MetroNIDAZOLE 500 MG/100 ML 500 MG/100 ML BAG IVPB SCH ×2 (02:48→13:56)
[2020-10-10] MEDS: Morphine Sulfate 2 MG/ML SYRINGE IVP PRN ×4 (02:48→16:54)
[2020-10-10 03:09] LABS: Basophils % 0.6 %; Immature Granulocytes % 0.6 % (0-4)
[2020-10-10 03:10] LABS: Eosinophils # 0.1 K/mcL (0.0-0.6); Eosinophils % 3.9 %; Hematocrit 23.7 % (35.3-44.9); Immature Platelets 3.2 % (1.1-6.1); Lymphocytes # 0.3 K/mcL (0.6-4.6); Mean Corpuscular HGB Conc 33.8 g/dL (31.6-35.5); Mean Corpuscular Hemoglobin 32.4 pg (28.0-33.3); Mean Platelet Volume 10.1 fL (9.4-12.4); Monocytes # 0.3 K/mcL (0.0-1.3); Monocytes % 15.6 %; Neutrophils # 1.2 K/mcL (1.6-8.9); Red Blood Count 2.47 M/mcL (3.82-4.97); Red Cell Distribution Width 17.5 % (11.5-14.5); Segmented Neutrophils % 64.3 %; White Blood Count 1.8 K/mcL (4.3-11.1)
[2020-10-10 03:11] LABS: Platelet Count 49 K/mcL (140-400)
[2020-10-10 03:28] LABS: Calcium 7.6 mg/dL (8.6-10.3); Potassium 3.8 mEq/L (3.5-5.1)
[2020-10-10 04:06] VITALS: O2SAT 99
[2020-10-10] MEDS ORDERED: 0.9 % Sodium Chloride 250 ML IVC PRN (07:40)
[2020-10-10] MEDS ORDERED: *HR* Heparin 10,000 UNIT/10 ML VIAL IV PRN (07:40)
[2020-10-10] MEDS ORDERED: 0.9 % Sodium Chloride 1,000 ML PRIME SCH (07:45)
[2020-10-10] MEDS: Aspirin 81 MG TAB.CHEW PO SCH (08:48)
[2020-10-10] MEDS: cefTRIAXone 1,000 MG in Water for inj. (sterile) 10 ML IVP SCH (08:48)
[2020-10-10] MEDS: Sucralfate 1 GM TABLET PO SCH ×3 (08:48→16:45)
[2020-10-10] MEDS: Renal Vitamin 1 CAP CAPSULE PO SCH (08:48)
[2020-10-10] MEDS: Insulin DETEMIR 100 UNIT/ML X5UNITS SUBQ SCH (08:57)
[2020-10-10] MEDS: Patient Taking Own Medication 1 EACH PO SCH ×3 (09:08→16:45)
[2020-10-10] MEDS: Pantoprazole 40 MG VIAL IVP SCH (09:16)
[2020-10-10 13:49] VITALS: TEMP 98.3
[2020-10-10] MEDS: Dextrose Gel 15 GM/37.5 ML TUBE PO PRN ×2 (13:53→14:09)
[2020-10-10] MEDS: NIFEdipine XL (24 HR) 30 MG TAB.ER.24 PO SCH (13:55)
[2020-10-10] MEDS: carvediloL 25 MG TABLET PO SCH ×2 (13:56→16:50)
[2020-10-10 16:20] VITALS: BP 142/83; PULSE 77
[2020-10-10] MEDS ORDERED: CloNIDine Patch 0.3 MG PATCH (WEEKLY) TP SCH (17:45)
[2020-10-10] MEDS ORDERED: Insulin LISPRO 300 UNITS/3 ML VIAL SUBQ ONE (23:35)
== END 2020-10-10 18:42 | disposition home or self-care (01) | DRG 637 ==
LOC: EMEROOARM 11:04 → 2NNU 11:04 → SUATTDRO 20:14 → 2ANU 10-09 14:21
PROVIDERS: ADMIT Pharmacist; ATTEND Student in an Organized Health Care Education/Training Program

== ENCOUNTER 2020-10-18 07:56 | Inpatient (IN) ==
[2020-10-18 08:37] LABS: Hematocrit 21.2 % (35.3-44.9); Mean Corpuscular Hemoglobin 32.4 pg (28.0-33.3); Mean Corpuscular Volume 98.1 fL (83.0-100.0); Mean Platelet Volume 9.8 fL (9.4-12.4); Monocytes # 0.1 K/mcL (0.0-1.3); Platelet Count 102 K/mcL (140-400); Red Blood Count 2.16 M/mcL (3.82-4.97); Red Cell Distribution Width 16.6 % (11.5-14.5); White Blood Count 1.3 K/mcL (4.3-11.1)
[2020-10-18 09:00] LABS: Alanine Aminotransferase 32 Units/L (7-52); Albumin 3.2 g/dL (3.5-5.7); Albumin/Globulin Ratio 1.4 (1.1-2.2); Alkaline Phosphatase 70 Units/L (34-104); Aspartate Amino Transferase 73 Units/L (13-39); BUN/Creatinine Ratio 11 (6-26); Bilirubin,Direct 0.1 mg/dL (0.0-0.2); Bilirubin,Indirect 0.3 mg/dL (0.0-1.0); Bilirubin,Total 0.4 mg/dL (0.3-1.0); Blood Urea Nitrogen 43 mg/dL (6-20); Calcium 8.5 mg/dL (8.6-10.3); Carbon Dioxide 27 mEq/L (23-29); Chloride 90 mEq/L (98-107); Globulin 2.3 g/dL (2.4-3.5); Glucose 574 mg/dL (70-105); Osmolality,Calculated 303 (280-300); Potassium 3.2 mEq/L (3.5-5.1); Sodium 128 mEq/L (136-145); Total Protein 5.5 g/dL (6.4-8.9); Troponin I < 0.03 ng/mL (< 0.04); eGFR For African Americans 15 (> 60); eGFR For Non-African Americans 12 (> 60)
[2020-10-18 09:04] LABS: VBG HCO3 23 mEq/L (21-27); VBG PCO2 23 mmHg (41-51); VBG PH 7.61 pH Units (7.32-7.42); VBG PO2 128 mmHg (25-50)
[2020-10-18 09:36] LABS: Lymphocytes # 0.1 K/mcL (0.6-4.6); Neutrophils # 1.1 K/mcL (1.6-8.9)
[2020-10-18 09:37] LABS: Anisocytosis 1+ (Not Present); Platelet Estimate Decreased (Normal)
[2020-10-18] MEDS ORDERED: Potassium Chloride Elixir 20 MEQ/15 ML UDC PO ONE (10:49)
[2020-10-18] MEDS ORDERED: 0.9 % Sodium Chloride 250 ML IVC PRN (11:49)
[2020-10-18] MEDS ORDERED: *HR* Heparin 10,000 UNIT/10 ML VIAL IV PRN (11:56)
[2020-10-18] MEDS ORDERED: 0.9 % Sodium Chloride 1,000 ML PRIME SCH (12:00)
[2020-10-18 12:52] LABS: Hepatitis B Surface Antibody 97.56 mIU/mL
[2020-10-18 13:02] LABS: Hepatitis B Surface Antigen Nonreactive (Nonreactive)
[2020-10-18] MEDS ORDERED: Naloxone 0.4 MG/ML INJ IVP PRN (14:08)
[2020-10-18 15:40] LABS: Estimated Average Glucose 120 mg/dl; Hemoglobin A1C 5.8 %
[2020-10-18] MEDS ORDERED: D5% in Water 1,000 ML IVC PRN (16:26)
[2020-10-18] MEDS ORDERED: Dextrose Gel 15 GM/37.5 ML TUBE PO PRN ×2 (16:26)
[2020-10-18] MEDS ORDERED: *HR* Dextrose 50 % in Water (Vial) 50 ML VIAL IVP PRN (16:26)
[2020-10-18] MEDS ORDERED: OXYCODONE MYRISTATE 9 MG PO SCH (17:00)
[2020-10-18] MEDS: Insulin LISPRO 300 UNITS/3 ML VIAL SUBQ SCH ×3 (17:32→21:23)
[2020-10-18] MEDS ORDERED: Gadolinium Contrast Agent (WT Based) IV PRN (17:35)
[2020-10-18] MEDS: *HR* OxyCODONE/APAP 5/325 TABLET PO PRN ×2 (17:38→19:46)
[2020-10-18 20:50] LABS: Basophils % 0.4 %; Eosinophils % 1.2 %; Hemoglobin 6.8 g/dL (11.5-15.4)
[2020-10-18 20:51] LABS: White Blood Count 2.5 K/mcL (4.3-11.1)
[2020-10-18 20:52] LABS: VBG HCO3 31 mEq/L (21-27); VBG PCO2 55 mmHg (41-51); VBG PH 7.36 pH Units (7.32-7.42); VBG PO2 109 mmHg (25-50)
[2020-10-18 20:52] LABS: Hematocrit 20.6 % (35.3-44.9); Immature Platelets 2.6 % (1.1-6.1); Lymphocytes # 0.3 K/mcL (0.6-4.6); Lymphocytes % 12.3 %; Mean Corpuscular Hemoglobin 32.1 pg (28.0-33.3); Mean Corpuscular Volume 97.2 fL (83.0-100.0); Mean Platelet Volume 9.4 fL (9.4-12.4); Monocytes # 0.4 K/mcL (0.0-1.3); Monocytes % 14.7 %; Neutrophils # 1.8 K/mcL (1.6-8.9); Platelet Count 117 K/mcL (140-400); Red Blood Count 2.12 M/mcL (3.82-4.97); Red Cell Distribution Width 17.2 % (11.5-14.5); Segmented Neutrophils % 71.4 %
[2020-10-18 21:01] LABS: Calcium 8.2 mg/dL (8.6-10.3); Potassium 3.3 mEq/L (3.5-5.1)
[2020-10-18] MEDS: ALPRAZolam 0.5 MG TABLET PO PRN (21:21)
[2020-10-18] MEDS: *HR* OxyCODONE ER (12 HR) 10 MG TABLET PO SCH (21:21)
[2020-10-19] MEDS: *HR* OxyCODONE/APAP 5/325 TABLET PO PRN ×4 (03:48→23:41)
[2020-10-19 04:48] LABS: Phosphorous 3.1 mg/dL (2.7-4.5); Potassium 3.6 mEq/L (3.5-5.1)
[2020-10-19] MEDS: *HR* OxyCODONE ER (12 HR) 10 MG TABLET PO SCH (06:12)
[2020-10-19] MEDS: Insulin LISPRO 300 UNITS/3 ML VIAL SUBQ SCH ×4 (08:23→21:24)
[2020-10-19] MEDS: Ondansetron 4 MG/2 ML VIAL IVP PRN (08:32)
[2020-10-19] MEDS ORDERED: Artificial Tears SOLN 15 ML BOTTLE BOTH EYES PRN (08:59)
[2020-10-19] MEDS ORDERED: Saline Nasal Spray 44 ML BOTTLE NS PRN (08:59)
[2020-10-19] MEDS ORDERED: Ondansetron ODT 4 MG TAB.RAPDIS PO PRN (08:59)
[2020-10-19] MEDS ORDERED: Fluticasone Propionate Nasal 50 MCG/SPRAY BOTTLE NS PRN (08:59)
[2020-10-19 09:30] LABS: Basophils % 0.5 %; Eosinophils % 0.9 %; Hematocrit 20.2 % (35.3-44.9); Hemoglobin 6.6 g/dL (11.5-15.4); Immature Granulocytes % 0.5 % (0-4); Lymphocytes # 0.4 K/mcL (0.6-4.6); Lymphocytes % 16.6 %; Mean Corpuscular HGB Conc 32.7 g/dL (31.6-35.5); Mean Corpuscular Hemoglobin 32.4 pg (28.0-33.3); Mean Platelet Volume 9.6 fL (9.4-12.4); Monocytes # 0.4 K/mcL (0.0-1.3); Monocytes % 17.5 %; Neutrophils # 1.4 K/mcL (1.6-8.9); Red Blood Count 2.04 M/mcL (3.82-4.97); Red Cell Distribution Width 17.3 % (11.5-14.5); White Blood Count 2.2 K/mcL (4.3-11.1)
[2020-10-19 09:43] LABS: Platelet Count 96 K/mcL (140-400)
[2020-10-19] MEDS: carvediloL 25 MG TABLET PO SCH ×2 (10:43→21:22)
[2020-10-19] MEDS: NIFEdipine XL (24 HR) 30 MG TAB.ER.24 PO SCH ×3 (10:43→21:21)
[2020-10-19] MEDS: hydrALAZINE 25 MG TABLET PO SCH ×2 (10:43→17:06)
[2020-10-19] MEDS: Sucralfate 1 GM TABLET PO SCH ×2 (11:32→17:06)
[2020-10-19] MEDS ORDERED: XTAMPZA 9 MG PO SCH (13:30)
[2020-10-19] MEDS: XTAMPZA 9 MG PO SCH ×2 (13:48→18:49)
[2020-10-19] MEDS: ISAVUCONAZONIUM SULFATE 186 MG PO SCH (13:48)
[2020-10-19] MEDS ORDERED: 0.9 % Sodium Chloride 250 ML ONE (15:05)
[2020-10-19] MEDS: Piperacillin/Tazobactam 3.375 GM in 0.9 % Sodium Chloride Mini Bag 100 ML IVPB SCH ×2 (17:06→23:41)
[2020-10-19 19:16] LABS: Hematocrit 22.1 % (35.3-44.9); Hemoglobin 7.3 g/dL (11.5-15.4); Mean Corpuscular Hemoglobin 32.2 pg (28.0-33.3); Mean Corpuscular Volume 97.4 fL (83.0-100.0); Mean Platelet Volume 9.4 fL (9.4-12.4); Platelet Count 106 K/mcL (140-400); Red Blood Count 2.27 M/mcL (3.82-4.97); Red Cell Distribution Width 16.9 % (11.5-14.5); White Blood Count 2.8 K/mcL (4.3-11.1)
[2020-10-19] MEDS: ALPRAZolam 0.5 MG TABLET PO PRN (21:21)
[2020-10-20] MEDS: hydrALAZINE 25 MG TABLET PO SCH ×3 (02:27→16:24)
[2020-10-20 02:46] LABS: Basophils % 0.4 %; Eosinophils # 0.1 K/mcL (0.0-0.6); Eosinophils % 1.9 %; Hematocrit 22.1 % (35.3-44.9); Hemoglobin 7.2 g/dL (11.5-15.4); Lymphocytes # 0.4 K/mcL (0.6-4.6); Lymphocytes % 16.3 %; Mean Corpuscular HGB Conc 32.6 g/dL (31.6-35.5); Mean Corpuscular Volume 98.2 fL (83.0-100.0); Mean Platelet Volume 9.6 fL (9.4-12.4); Monocytes # 0.4 K/mcL (0.0-1.3); Monocytes % 17.1 %; Neutrophils # 1.7 K/mcL (1.6-8.9); Platelet Count 106 K/mcL (140-400); Red Blood Count 2.25 M/mcL (3.82-4.97); Segmented Neutrophils % 64.3 %; White Blood Count 2.6 K/mcL (4.3-11.1)
[2020-10-20 03:05] LABS: Potassium 4.1 mEq/L (3.5-5.1)
[2020-10-20] MEDS ORDERED: 0.9 % Sodium Chloride 250 ML IVC PRN (07:18)
[2020-10-20] MEDS: Sucralfate 1 GM TABLET PO SCH ×3 (07:45→16:24)
[2020-10-20] MEDS: XTAMPZA 9 MG PO SCH ×2 (07:45→23:10)
[2020-10-20] MEDS: NIFEdipine XL (24 HR) 30 MG TAB.ER.24 PO SCH ×3 (07:46→22:03)
[2020-10-20] MEDS: Insulin LISPRO 300 UNITS/3 ML VIAL SUBQ SCH ×3 (07:49→16:18)
[2020-10-20] MEDS ORDERED: Insulin DETEMIR 100 UNIT/ML X5UNITS SUBQ SCH (09:00)
[2020-10-20] MEDS ORDERED: *HR* Heparin 10,000 UNIT/10 ML VIAL IV PRN (10:30)
[2020-10-20] MEDS: Piperacillin/Tazobactam 3.375 GM in 0.9 % Sodium Chloride Mini Bag 100 ML IVPB SCH ×2 (13:02→16:25)
[2020-10-20] MEDS: carvediloL 25 MG TABLET PO SCH ×2 (13:03→22:03)
[2020-10-20] MEDS: *HR* OxyCODONE/APAP 5/325 TABLET PO PRN ×3 (13:03→22:07)
[2020-10-20] MEDS: ISAVUCONAZONIUM SULFATE 186 MG PO SCH (13:04)
[2020-10-20] MEDS: Ondansetron 4 MG/2 ML VIAL IVP PRN (20:11)
[2020-10-20] MEDS ORDERED: Ipratropium/Albuterol Neb 3 ML IH PRN (20:58)
[2020-10-20] MEDS ORDERED: Insulin LISPRO 300 UNITS/3 ML VIAL SUBQ SCH (21:00)
[2020-10-20] MEDS: Insulin DETEMIR 100 UNIT/ML X5UNITS SUBQ SCH ×2 (21:10→23:15)
[2020-10-20] MEDS: ALPRAZolam 0.5 MG TABLET PO PRN (22:06)
[2020-10-21] MEDS: hydrALAZINE 25 MG TABLET PO SCH ×2 (02:00→08:26)
[2020-10-21] MEDS: Piperacillin/Tazobactam 3.375 GM in 0.9 % Sodium Chloride Mini Bag 100 ML IVPB SCH (05:17)
[2020-10-21] MEDS: carvediloL 25 MG TABLET PO SCH (08:24)
[2020-10-21] MEDS: NIFEdipine XL (24 HR) 30 MG TAB.ER.24 PO SCH (08:24)
[2020-10-21] MEDS: Sucralfate 1 GM TABLET PO SCH ×2 (08:25→11:12)
[2020-10-21] MEDS: Insulin LISPRO 300 UNITS/3 ML VIAL SUBQ SCH ×2 (08:33→11:08)
[2020-10-21] MEDS: XTAMPZA 9 MG PO SCH (08:53)
[2020-10-21] MEDS: Insulin DETEMIR 100 UNIT/ML X5UNITS SUBQ SCH (08:53)
[2020-10-21] MEDS: ISAVUCONAZONIUM SULFATE 186 MG PO SCH (08:53)
[2020-10-21 09:27] LABS: Hematocrit 23.5 % (35.3-44.9); Hemoglobin 7.7 g/dL (11.5-15.4); Mean Corpuscular HGB Conc 32.8 g/dL (31.6-35.5); Mean Corpuscular Hemoglobin 32.9 pg (28.0-33.3); Mean Corpuscular Volume 100.4 fL (83.0-100.0); Mean Platelet Volume 9.3 fL (9.4-12.4); Platelet Count 108 K/mcL (140-400); Red Blood Count 2.34 M/mcL (3.82-4.97); Red Cell Distribution Width 16.5 % (11.5-14.5); White Blood Count 2.2 K/mcL (4.3-11.1)
[2020-10-21 09:46] LABS: Albumin 3.1 g/dL (3.5-5.7); Albumin/Globulin Ratio 1.2 (1.1-2.2); Bilirubin,Total 0.5 mg/dL (0.3-1.0); Calcium 7.7 mg/dL (8.6-10.3); Globulin 2.6 g/dL (2.4-3.5); Potassium 3.9 mEq/L (3.5-5.1); Total Protein 5.7 g/dL (6.4-8.9)
[2020-10-21 11:10] VITALS: BP 121/53; PULSE 75; TEMP 98.3; O2SAT 94
[2020-10-21] MEDS: *HR* OxyCODONE/APAP 5/325 TABLET PO PRN (11:12)
[2020-10-24] MEDS ORDERED: CloNIDine Patch 0.3 MG PATCH (WEEKLY) TD SCH (11:00)
== END 2020-10-21 14:06 | disposition home or self-care (01) | DRG 154 ==
LOC: 2ANU 07:56 → EMEROOARM 07:56 → 2NNU 12:23 → SUATTDRO 13:47 → 2NENU 10-19 23:02
PROVIDERS: ADMIT Internal Medicine; ATTEND Internal Medicine

== ENCOUNTER 2020-11-16 21:31 | Inpatient (IN) ==
[2020-11-16] MEDS ORDERED: Isovue-370 500 ML BOTTLE IVP ONE (22:17)
[2020-11-16 22:52] LABS: Basophils % 0.2 %; Eosinophils % 2.3 %; Monocytes % 8.1 %
[2020-11-16 22:54] LABS: Eosinophils # 0.1 K/mcL (0.0-0.6); Hematocrit 16.7 % (35.3-44.9); Immature Granulocytes % 0.6 % (0-4); Immature Platelets 1.4 % (1.1-6.1); Lymphocytes # 0.5 K/mcL (0.6-4.6); Lymphocytes % 9.3 %; Mean Corpuscular HGB Conc 35.9 g/dL (31.6-35.5); Mean Corpuscular Hemoglobin 32.8 pg (28.0-33.3); Mean Corpuscular Volume 91.3 fL (83.0-100.0); Mean Platelet Volume 9.5 fL (9.4-12.4); Monocytes # 0.4 K/mcL (0.0-1.3); Neutrophils # 3.8 K/mcL (1.6-8.9); Red Blood Count 1.83 M/mcL (3.82-4.97); Red Cell Distribution Width 13.8 % (11.5-14.5); Segmented Neutrophils % 79.5 %; White Blood Count 4.8 K/mcL (4.3-11.1)
[2020-11-16 22:55] LABS: INR 1.2; Prothrombin Time 13.4 Seconds (9.4-12.1)
[2020-11-16 22:57] LABS: Activated Partial Thrombo Time 38.1 Seconds (26.0-36.0)
[2020-11-16 23:03] LABS: Platelet Count 96 K/mcL (140-400)
[2020-11-16 23:45] LABS: Alanine Aminotransferase 9 Units/L (7-52); Albumin 3.4 g/dL (3.5-5.7); Albumin/Globulin Ratio 1.2 (1.1-2.2); Alkaline Phosphatase 52 Units/L (34-104); Aspartate Amino Transferase 15 Units/L (13-39); BUN/Creatinine Ratio 8 (6-26); Bilirubin,Indirect 0.4 mg/dL (0.0-1.0); Bilirubin,Total 0.4 mg/dL (0.3-1.0); Blood Urea Nitrogen 29 mg/dL (6-20); Carbon Dioxide 28 mEq/L (23-29); Chloride 89 mEq/L (98-107); Globulin 2.9 g/dL (2.4-3.5); Glucose 173 mg/dL (70-105); Magnesium 1.8 mg/dL (1.6-2.6); Osmolality,Calculated 280 (280-300); Phosphorous 2.4 mg/dL (2.7-4.5); Potassium 2.5 mEq/L (3.5-5.1); Sodium 130 mEq/L (136-145); Total Protein 6.3 g/dL (6.4-8.9); Troponin I < 0.03 ng/mL (< 0.04); eGFR For African Americans 18 (> 60); eGFR For Non-African Americans 15 (> 60)
[2020-11-17 00:16] LABS: VBG HCO3 29 mEq/L (21-27); VBG PCO2 50 mmHg (41-51); VBG PH 7.38 pH Units (7.32-7.42); VBG PO2 54 mmHg (25-50)
[2020-11-17 01:05] LABS: Adenovirus Not Detected (Not Detect); Bordetella Pertussis Not Detected (Not Detect); Chlamydophila pneumoniae Not Detected (Not Detect); Coronavirus 229E Not Detected (Not Detect); Coronavirus HKU1 Not Detected (Not Detect); Coronavirus NL63 Not Detected (Not Detect); Coronavirus OC43 Not Detected (Not Detect); Human Metapneumovirus Not Detected (Not Detect); Human Rhinovirus/Enterovirus Not Detected (Not Detect); Influenza A Subtype 2009 H1 Not Detected (Not Detect); Influenza B Not Detected (Not Detect); Mycoplasma pneumoniae Not Detected (Not Detect); Parainfluenza Virus 1 Not Detected (Not Detect); Parainfluenza Virus 2 Not Detected (Not Detect); Parainfluenza Virus 3 Not Detected (Not Detect); Parainfluenza Virus 4 Not Detected (Not Detect); Respiratory Syncytial Virus Not Detected (Not Detect); SARS-CoV-2 Not Detected (Not Detect)
[2020-11-17] MEDS ORDERED: Naloxone 0.4 MG/ML INJ IVP PRN (04:55)
[2020-11-17] MEDS ORDERED: 0.9 % Sodium Chloride 250 ML ONE ×2 (05:18→11:35)
[2020-11-17] MEDS ORDERED: *HR* Labetalol 20 MG/4 ML SYRINGE IVP ONE ×2 (06:13→09:18)
[2020-11-17] MEDS: Ondansetron 4 MG/2 ML VIAL IVP PRN ×2 (06:24→15:52)
[2020-11-17] MEDS ORDERED: D5% in Water 1,000 ML IVC PRN (07:49)
[2020-11-17] MEDS ORDERED: Dextrose Gel 15 GM/37.5 ML TUBE PO PRN ×2 (07:49)
[2020-11-17] MEDS ORDERED: Insulin LISPRO 300 UNITS/3 ML VIAL SUBQ ONE (07:51)
[2020-11-17] MEDS ORDERED: carvediloL 25 MG TABLET PO SCH (09:21)
[2020-11-17] MEDS: hydrALAZINE 25 MG TABLET PO SCH ×3 (10:04→20:04)
[2020-11-17] MEDS: Insulin DETEMIR 100 UNIT/ML X5UNITS SUBQ SCH (10:04)
[2020-11-17] MEDS: Insulin LISPRO 300 UNITS/3 ML VIAL SUBQ SCH ×3 (10:05→20:03)
[2020-11-17] MEDS: *HR* OxyCODONE Immed Rel 5 MG TABLET PO PRN ×2 (10:13→16:15)
[2020-11-17 11:19] LABS: Hematocrit 21.3 % (35.3-44.9); Hemoglobin 7.5 g/dL (11.5-15.4); Immature Platelets 1.3 % (1.1-6.1); Mean Corpuscular HGB Conc 35.2 g/dL (31.6-35.5); Mean Corpuscular Hemoglobin 32.3 pg (28.0-33.3); Mean Corpuscular Volume 91.8 fL (83.0-100.0); Mean Platelet Volume 9.4 fL (9.4-12.4); Red Blood Count 2.32 M/mcL (3.82-4.97); Red Cell Distribution Width 14.1 % (11.5-14.5)
[2020-11-17 11:23] LABS: Calcium 8.9 mg/dL (8.6-10.3); Potassium 3.1 mEq/L (3.5-5.1)
[2020-11-17] MEDS ORDERED: Potassium Chloride 40 MEQ, Lidocaine 1% 2 ML in 0.9 % Sodium Chloride 500 ML IVPB ONE (14:30)
[2020-11-17] MEDS: Piperacillin/Tazobactam 3.375 GM in 0.9 % Sodium Chloride Mini Bag 100 ML IVPB SCH (15:47)
[2020-11-17] MEDS: Azithromycin 500 MG in 0.9 % Sodium Chloride 250 ML IVPB SCH (15:52)
[2020-11-17] MEDS ORDERED: Piperacillin/Tazobactam 3.375 GM in 0.9 % Sodium Chloride Mini Bag 100 ML IVPB SCH (16:00)
[2020-11-17] MEDS: NIFEdipine XL (24 HR) 30 MG TAB.ER.24 PO SCH ×2 (16:13→20:04)
[2020-11-17] MEDS: carvediloL 25 MG TABLET PO SCH (16:13)
[2020-11-17] MEDS ORDERED: Saline Nasal Spray 44 ML BOTTLE NS PRN (17:27)
[2020-11-17] MEDS ORDERED: Fluticasone Propionate Nasal 50 MCG/SPRAY BOTTLE NS PRN (17:27)
[2020-11-17 18:56] LABS: Hematocrit 23.8 % (35.3-44.9); Hemoglobin 8.3 g/dL (11.5-15.4)
[2020-11-17] MEDS: cloNIDine HCL 0.1 MG TABLET PO SCH (20:03)
[2020-11-17] MEDS: *HR* Dextrose 50 % in Water (Vial) 50 ML VIAL IVP PRN (20:13)
[2020-11-18] MEDS: Ondansetron 4 MG/2 ML VIAL IVP PRN ×3 (00:35→18:27)
[2020-11-18] MEDS: Insulin DETEMIR 100 UNIT/ML X5UNITS SUBQ SCH ×3 (00:39→21:24)
[2020-11-18] MEDS ORDERED: *HR* Promethazine 25 MG/ML VIAL IM ONE (04:16)
[2020-11-18] MEDS: Piperacillin/Tazobactam 3.375 GM in 0.9 % Sodium Chloride Mini Bag 100 ML IVPB SCH ×2 (04:44→15:13)
[2020-11-18] MEDS: carvediloL 25 MG TABLET PO SCH ×2 (07:39→18:00)
[2020-11-18] MEDS: Sucralfate 1 GM TABLET PO SCH ×3 (07:39→18:00)
[2020-11-18] MEDS: Insulin LISPRO 300 UNITS/3 ML VIAL SUBQ SCH ×4 (07:40→21:24)
[2020-11-18] MEDS ORDERED: 0.9 % Sodium Chloride 250 ML IVC PRN (08:20)
[2020-11-18] MEDS ORDERED: *HR* Heparin 10,000 UNIT/10 ML VIAL IV PRN (08:20)
[2020-11-18] MEDS ORDERED: 0.9 % Sodium Chloride 1,000 ML PRIME SCH (08:30)
[2020-11-18] MEDS: Renal Vitamin 1 CAP CAPSULE PO SCH (09:41)
[2020-11-18] MEDS: Aspirin 81 MG TAB.CHEW PO SCH (09:41)
[2020-11-18] MEDS: Cholecalciferol (D-3) 1,000 UNIT (25MCG) TABLET PO SCH (09:41)
[2020-11-18] MEDS: hydrALAZINE 25 MG TABLET PO SCH ×3 (09:41→21:23)
[2020-11-18] MEDS: cloNIDine HCL 0.1 MG TABLET PO SCH ×3 (09:44→21:24)
[2020-11-18] MEDS: NIFEdipine XL (24 HR) 30 MG TAB.ER.24 PO SCH ×3 (09:45→21:23)
[2020-11-18 11:22] LABS: Hemoglobin 8.2 g/dL (11.5-15.4); Mean Corpuscular Volume 92.5 fL (83.0-100.0)
[2020-11-18 11:24] LABS: Basophils % 0.3 %; Eosinophils # 0.1 K/mcL (0.0-0.6); Eosinophils % 2.2 %; Hematocrit 23.6 % (35.3-44.9); Immature Granulocytes % 0.3 % (0-4); Immature Platelets 1.6 % (1.1-6.1); Lymphocytes # 0.4 K/mcL (0.6-4.6); Lymphocytes % 10.8 %; Mean Corpuscular HGB Conc 34.7 g/dL (31.6-35.5); Mean Corpuscular Hemoglobin 32.2 pg (28.0-33.3); Mean Platelet Volume 9.3 fL (9.4-12.4); Monocytes # 0.3 K/mcL (0.0-1.3); Monocytes % 8.6 %; Neutrophils # 2.9 K/mcL (1.6-8.9); Platelet Count 115 K/mcL (140-400); Red Blood Count 2.55 M/mcL (3.82-4.97); Red Cell Distribution Width 14.4 % (11.5-14.5); Segmented Neutrophils % 77.8 %; White Blood Count 3.7 K/mcL (4.3-11.1)
[2020-11-18 11:39] LABS: Magnesium 2.2 mg/dL (1.6-2.6); Phosphorous 3.3 mg/dL (2.7-4.5); Potassium 3.5 mEq/L (3.5-5.1)
[2020-11-18] MEDS: Azithromycin 500 MG in 0.9 % Sodium Chloride 250 ML IVPB SCH (15:13)
[2020-11-18] MEDS: *HR* OxyCODONE/APAP 5/325 TABLET PO PRN (18:26)
[2020-11-19] MEDS: Melatonin 3 MG TABLET PO PRN ×2 (00:28→21:17)
[2020-11-19] MEDS: ALPRAZolam 1 MG TABLET PO SCH ×2 (00:28→21:28)
[2020-11-19 02:20] LABS: Basophils % 0.4 %; Eosinophils # 0.1 K/mcL (0.0-0.6); Eosinophils % 3.3 %; Hematocrit 22.8 % (35.3-44.9); Immature Granulocytes % 0.4 % (0-4); Lymphocytes # 0.3 K/mcL (0.6-4.6); Lymphocytes % 12.5 %; Mean Corpuscular HGB Conc 35.1 g/dL (31.6-35.5); Mean Corpuscular Hemoglobin 32.1 pg (28.0-33.3); Mean Corpuscular Volume 91.6 fL (83.0-100.0); Mean Platelet Volume 10.2 fL (9.4-12.4); Monocytes # 0.3 K/mcL (0.0-1.3); Monocytes % 11.4 %; Platelet Count 135 K/mcL (140-400); Red Blood Count 2.49 M/mcL (3.82-4.97); Red Cell Distribution Width 14.3 % (11.5-14.5); White Blood Count 2.7 K/mcL (4.3-11.1)
[2020-11-19 02:37] LABS: Calcium 8.5 mg/dL (8.6-10.3); Magnesium 1.8 mg/dL (1.6-2.6); Phosphorous 1.7 mg/dL (2.7-4.5); Potassium 3.7 mEq/L (3.5-5.1)
[2020-11-19] MEDS: *HR* Dextrose 50 % in Water (Vial) 50 ML VIAL IVP PRN ×2 (03:31→04:39)
[2020-11-19] MEDS: Piperacillin/Tazobactam 3.375 GM in 0.9 % Sodium Chloride Mini Bag 100 ML IVPB SCH ×2 (03:40→14:49)
[2020-11-19] MEDS: Insulin LISPRO 300 UNITS/3 ML VIAL SUBQ SCH ×4 (07:14→21:31)
[2020-11-19] MEDS: hydrALAZINE 25 MG TABLET PO SCH ×3 (07:49→21:19)
[2020-11-19] MEDS: Cholecalciferol (D-3) 1,000 UNIT (25MCG) TABLET PO SCH (07:49)
[2020-11-19] MEDS: Sucralfate 1 GM TABLET PO SCH ×3 (07:49→16:08)
[2020-11-19] MEDS: Aspirin 81 MG TAB.CHEW PO SCH (07:49)
[2020-11-19] MEDS: NIFEdipine XL (24 HR) 30 MG TAB.ER.24 PO SCH ×3 (07:49→21:29)
[2020-11-19] MEDS: carvediloL 25 MG TABLET PO SCH ×2 (07:49→16:08)
[2020-11-19] MEDS: Renal Vitamin 1 CAP CAPSULE PO SCH (07:49)
[2020-11-19] MEDS: cloNIDine HCL 0.1 MG TABLET PO SCH ×3 (07:50→21:29)
[2020-11-19] MEDS: *HR* OxyCODONE/APAP 5/325 TABLET PO PRN ×3 (12:04→21:59)
[2020-11-19] MEDS: Azithromycin 500 MG in 0.9 % Sodium Chloride 250 ML IVPB SCH (14:47)
[2020-11-20] MEDS: Piperacillin/Tazobactam 3.375 GM in 0.9 % Sodium Chloride Mini Bag 100 ML IVPB SCH ×2 (03:53→16:13)
[2020-11-20] MEDS: *HR* OxyCODONE/APAP 5/325 TABLET PO PRN ×5 (03:54→21:32)
[2020-11-20 06:13] LABS: Basophils % 0.8 %; Eosinophils # 0.2 K/mcL (0.0-0.6); Eosinophils % 6.1 %; Hematocrit 22.5 % (35.3-44.9); Hemoglobin 7.9 g/dL (11.5-15.4); Immature Granulocytes % 0.4 % (0-4); Lymphocytes # 0.5 K/mcL (0.6-4.6); Lymphocytes % 20.5 %; Mean Corpuscular HGB Conc 35.1 g/dL (31.6-35.5); Mean Corpuscular Hemoglobin 32.1 pg (28.0-33.3); Mean Corpuscular Volume 91.5 fL (83.0-100.0); Mean Platelet Volume 9.3 fL (9.4-12.4); Monocytes # 0.3 K/mcL (0.0-1.3); Monocytes % 12.5 %; Neutrophils # 1.6 K/mcL (1.6-8.9); Platelet Count 103 K/mcL (140-400); Red Blood Count 2.46 M/mcL (3.82-4.97); Red Cell Distribution Width 13.3 % (11.5-14.5); Segmented Neutrophils % 59.7 %; White Blood Count 2.6 K/mcL (4.3-11.1)
[2020-11-20 06:30] LABS: Potassium 3.9 mEq/L (3.5-5.1)
[2020-11-20] MEDS: Renal Vitamin 1 CAP CAPSULE PO SCH (08:02)
[2020-11-20] MEDS: Aspirin 81 MG TAB.CHEW PO SCH (08:02)
[2020-11-20] MEDS: NIFEdipine XL (24 HR) 30 MG TAB.ER.24 PO SCH ×3 (08:02→21:32)
[2020-11-20] MEDS: carvediloL 25 MG TABLET PO SCH ×2 (08:02→17:24)
[2020-11-20] MEDS: cloNIDine HCL 0.1 MG TABLET PO SCH ×3 (08:03→21:32)
[2020-11-20] MEDS: Cholecalciferol (D-3) 1,000 UNIT (25MCG) TABLET PO SCH (08:03)
[2020-11-20] MEDS: hydrALAZINE 25 MG TABLET PO SCH ×3 (08:03→21:33)
[2020-11-20] MEDS: Sucralfate 1 GM TABLET PO SCH ×3 (08:03→16:13)
[2020-11-20] MEDS: Insulin LISPRO 300 UNITS/3 ML VIAL SUBQ SCH ×4 (08:08→21:38)
[2020-11-20 10:09] LABS: Calcium 7.8 mg/dL (8.6-10.3)
[2020-11-20] MEDS ORDERED: Ipratropium/Albuterol Neb 3 ML IH PRN (10:39)
[2020-11-20] MEDS: Ondansetron 4 MG/2 ML VIAL IVP PRN ×2 (11:02→21:31)
[2020-11-20] MEDS: Azithromycin 500 MG in 0.9 % Sodium Chloride 250 ML IVPB SCH (16:13)
[2020-11-20] MEDS: ALPRAZolam 1 MG TABLET PO SCH (21:31)
[2020-11-20] MEDS: Melatonin 3 MG TABLET PO PRN (22:53)
[2020-11-21] MEDS: Piperacillin/Tazobactam 3.375 GM in 0.9 % Sodium Chloride Mini Bag 100 ML IVPB SCH ×2 (03:50→15:43)
[2020-11-21] MEDS: *HR* OxyCODONE/APAP 5/325 TABLET PO PRN ×4 (04:11→17:03)
[2020-11-21 05:41] LABS: Calcium 8.2 mg/dL (8.6-10.3)
[2020-11-21] MEDS: Ondansetron 4 MG/2 ML VIAL IVP PRN (06:45)
[2020-11-21] MEDS ORDERED: 0.9 % Sodium Chloride 250 ML IVC PRN (07:18)
[2020-11-21 07:47] VITALS: PULSE 80; O2SAT 99
[2020-11-21] MEDS: Cholecalciferol (D-3) 1,000 UNIT (25MCG) TABLET PO SCH (08:24)
[2020-11-21] MEDS: Insulin LISPRO 300 UNITS/3 ML VIAL SUBQ SCH ×3 (08:24→17:38)
[2020-11-21] MEDS: Sucralfate 1 GM TABLET PO SCH ×3 (08:24→17:45)
[2020-11-21] MEDS: Renal Vitamin 1 CAP CAPSULE PO SCH (08:24)
[2020-11-21] MEDS: Aspirin 81 MG TAB.CHEW PO SCH (08:24)
[2020-11-21] MEDS: carvediloL 25 MG TABLET PO SCH ×2 (11:49→17:44)
[2020-11-21] MEDS: NIFEdipine XL (24 HR) 30 MG TAB.ER.24 PO SCH ×2 (11:50→15:43)
[2020-11-21] MEDS: cloNIDine HCL 0.1 MG TABLET PO SCH ×2 (11:50→15:44)
[2020-11-21] MEDS: hydrALAZINE 25 MG TABLET PO SCH ×2 (11:50→15:44)
[2020-11-21 12:03] LABS: Basophils % 0.3 %; Eosinophils # 0.2 K/mcL (0.0-0.6); Eosinophils % 5.1 %; Hematocrit 21.7 % (35.3-44.9); Hemoglobin 7.6 g/dL (11.5-15.4); Lymphocytes # 0.6 K/mcL (0.6-4.6); Mean Corpuscular Hemoglobin 32.2 pg (28.0-33.3); Mean Corpuscular Volume 91.9 fL (83.0-100.0); Mean Platelet Volume 9.7 fL (9.4-12.4); Monocytes # 0.4 K/mcL (0.0-1.3); Monocytes % 10.7 %; Neutrophils # 2.2 K/mcL (1.6-8.9); Platelet Count 106 K/mcL (140-400); Red Blood Count 2.36 M/mcL (3.82-4.97); Red Cell Distribution Width 13.4 % (11.5-14.5); White Blood Count 3.4 K/mcL (4.3-11.1)
[2020-11-21 12:08] LABS: Segmented Neutrophils % 64.9 %
[2020-11-21] MEDS ORDERED: Azithromycin 250 MG TABLET PO ONE (14:00)
[2020-11-21 14:07] VITALS: BP 183/80; TEMP 98.1
== END 2020-11-21 18:42 | disposition home health service (06) | DRG 193 ==
LOC: 2ANU 21:31 → EMEROOARM 21:31 → 2ANU 11-17 03:35 → SUATTDRO 11-18 11:49 → 2ANU 11-19 03:26
PROVIDERS: ADMIT Internal Medicine; ATTEND Family Medicine

== ENCOUNTER 2020-11-29 18:37 | Observation (INO) ==
[2020-11-29] MEDS ORDERED: *HR* HYDROmorphone 2 MG/ML SYRINGE IVP ONE ×2 (18:53→21:34)
[2020-11-29] MEDS ORDERED: Ondansetron 4 MG/2 ML VIAL IVP ONE (18:54)
[2020-11-29 20:30] LABS: Basophils % 0.1 %; Immature Granulocytes % 0.3 % (0-4); Red Blood Count 2.02 M/mcL (3.82-4.97)
[2020-11-29 20:32] LABS: Eosinophils # 0.1 K/mcL (0.0-0.6); Eosinophils % 1.7 %; Hematocrit 17.5 % (35.3-44.9); Hemoglobin 6.2 g/dL (11.5-15.4); Immature Platelets 2.3 % (1.1-6.1); Lymphocytes # 0.5 K/mcL (0.6-4.6); Lymphocytes % 6.6 %; Mean Corpuscular HGB Conc 35.4 g/dL (31.6-35.5); Mean Corpuscular Hemoglobin 30.7 pg (28.0-33.3); Mean Corpuscular Volume 86.6 fL (83.0-100.0); Mean Platelet Volume 9.6 fL (9.4-12.4); Monocytes # 0.4 K/mcL (0.0-1.3); Monocytes % 5.7 %; Neutrophils # 5.9 K/mcL (1.6-8.9); Red Cell Distribution Width 12.6 % (11.5-14.5); Segmented Neutrophils % 85.6 %; White Blood Count 6.9 K/mcL (4.3-11.1)
[2020-11-29 20:35] LABS: Platelet Count 94 K/mcL (140-400)
[2020-11-29] MEDS ORDERED: Haloperidol Lactate 5 MG/ML VIAL IVP ONE (20:45)
[2020-11-29 20:46] LABS: Alanine Aminotransferase 18 Units/L (7-52); Albumin 3.3 g/dL (3.5-5.7); Albumin/Globulin Ratio 1.4 (1.1-2.2); Alkaline Phosphatase 51 Units/L (34-104); Aspartate Amino Transferase 23 Units/L (13-39); BUN/Creatinine Ratio 6 (6-26); Bilirubin,Direct 0.1 mg/dL (0.0-0.2); Bilirubin,Indirect 0.3 mg/dL (0.0-1.0); Bilirubin,Total 0.4 mg/dL (0.3-1.0); Blood Urea Nitrogen 31 mg/dL (6-20); Calcium 10.3 mg/dL (8.6-10.3); Carbon Dioxide 30 mEq/L (23-29); Chloride 87 mEq/L (98-107); Globulin 2.3 g/dL (2.4-3.5); Glucose 243 mg/dL (70-105); Lipase 7 Units/L (11-82); Osmolality,Calculated 281 (280-300); Potassium 2.7 mEq/L (3.5-5.1); Sodium 128 mEq/L (136-145); Total Protein 5.6 g/dL (6.4-8.9); Troponin I < 0.03 ng/mL (< 0.04); eGFR For African Americans 12 (> 60); eGFR For Non-African Americans 10 (> 60)
[2020-11-29 21:44] LABS: Magnesium 1.9 mg/dL (1.6-2.6)
[2020-11-29] MEDS ORDERED: 0.9 % Sodium Chloride 250 ML ONE (22:01)
[2020-11-30 03:30] LABS: Potassium 3.7 mEq/L (3.5-5.1)
[2020-11-30] MEDS ORDERED: Ondansetron 4 MG/2 ML VIAL IVP ONE (04:41)
[2020-11-30 05:37] LABS: VBG HCO3 19 mEq/L (21-27); VBG PCO2 41 mmHg (41-51); VBG PH 7.28 pH Units (7.32-7.42); VBG PO2 84 mmHg (25-50)
[2020-11-30] MEDS ORDERED: Haloperidol Lactate 5 MG/ML VIAL IVP ONE (07:31)
[2020-11-30] MEDS ORDERED: Acetaminophen 325 MG TABLET PO PRN (08:09)
[2020-11-30] MEDS ORDERED: D5% in Water 1,000 ML IVC PRN (08:09)
[2020-11-30] MEDS ORDERED: Dextrose Gel 15 GM/37.5 ML TUBE PO PRN ×2 (08:09)
[2020-11-30] MEDS ORDERED: *HR* Dextrose 50 % in Water (Vial) 50 ML VIAL IVP PRN (08:09)
[2020-11-30] MEDS ORDERED: Naloxone 0.4 MG/ML INJ IVP PRN (08:09)
[2020-11-30] MEDS ORDERED: 0.9 % Sodium Chloride 250 ML IVC PRN (10:29)
[2020-11-30] MEDS ORDERED: 0.9 % Sodium Chloride 1,000 ML PRIME SCH (10:30)
[2020-11-30] MEDS: Insulin LISPRO 300 UNITS/3 ML VIAL SUBQ SCH ×2 (11:24→17:48)
[2020-11-30 11:54] LABS: Hepatitis B Surface Antibody 99.43 mIU/mL
[2020-11-30] MEDS ORDERED: Metoclopramide 10 MG/2 ML VIAL IVP PRN (11:58)
[2020-11-30 12:05] LABS: Hepatitis B Surface Antigen Nonreactive (Nonreactive)
[2020-11-30] MEDS: cloNIDine HCL 0.1 MG TABLET PO SCH ×3 (12:14→19:51)
[2020-11-30] MEDS: Aspirin 81 MG TAB.CHEW PO SCH (12:14)
[2020-11-30] MEDS: hydrALAZINE 25 MG TABLET PO SCH ×3 (12:14→23:55)
[2020-11-30] MEDS: carvediloL 25 MG TABLET PO SCH ×2 (12:14→17:47)
[2020-11-30] MEDS: Cholecalciferol (D-3) 1,000 UNIT (25MCG) TABLET PO SCH (13:32)
[2020-11-30] MEDS: NIFEdipine XL (24 HR) 30 MG TAB.ER.24 PO SCH ×2 (15:49→19:51)
[2020-11-30] MEDS: Ondansetron 4 MG/2 ML VIAL IVP PRN ×2 (15:50→23:55)
[2020-11-30] MEDS: *HR* HYDROmorphone (PF) 1 MG/ML SYRINGE IVP PRN ×3 (15:51→23:55)
[2020-11-30] MEDS ORDERED: Saline Nasal Spray 44 ML BOTTLE NS PRN (18:10)
[2020-11-30] MEDS ORDERED: Artificial Tears SOLN 15 ML BOTTLE BOTH EYES PRN (18:12)
[2020-11-30] MEDS ORDERED: ALPRAZolam 0.5 MG TABLET PO SCH (22:45)
[2020-12-01] MEDS: *HR* HYDROmorphone (PF) 1 MG/ML SYRINGE IVP PRN ×3 (03:49→13:21)
[2020-12-01 03:57] LABS: Basophils % 0.3 %; Hemoglobin 7.2 g/dL (11.5-15.4); Red Cell Distribution Width 13.4 % (11.5-14.5)
[2020-12-01 03:58] LABS: Eosinophils # 0.1 K/mcL (0.0-0.6); Eosinophils % 1.7 %; Immature Platelets 1.7 % (1.1-6.1); Lymphocytes # 0.5 K/mcL (0.6-4.6); Lymphocytes % 17.9 %; Mean Corpuscular Hemoglobin 32.3 pg (28.0-33.3); Mean Corpuscular Volume 89.7 fL (83.0-100.0); Mean Platelet Volume 9.7 fL (9.4-12.4); Monocytes # 0.5 K/mcL (0.0-1.3); Monocytes % 17.9 %; Neutrophils # 1.8 K/mcL (1.6-8.9); Red Blood Count 2.23 M/mcL (3.82-4.97); Segmented Neutrophils % 62.2 %; White Blood Count 2.9 K/mcL (4.3-11.1)
[2020-12-01 04:08] LABS: Platelet Count 73 K/mcL (140-400)
[2020-12-01 04:16] LABS: Calcium 8.3 mg/dL (8.6-10.3); Magnesium 1.9 mg/dL (1.6-2.6); Phosphorous 3.2 mg/dL (2.7-4.5); Potassium 3.6 mEq/L (3.5-5.1)
[2020-12-01] MEDS: Insulin LISPRO 300 UNITS/3 ML VIAL SUBQ SCH ×2 (08:49→11:35)
[2020-12-01] MEDS: Aspirin 81 MG TAB.CHEW PO SCH (08:49)
[2020-12-01] MEDS: Cholecalciferol (D-3) 1,000 UNIT (25MCG) TABLET PO SCH (08:50)
[2020-12-01] MEDS: NIFEdipine XL (24 HR) 30 MG TAB.ER.24 PO SCH ×2 (08:50→13:22)
[2020-12-01] MEDS: cloNIDine HCL 0.1 MG TABLET PO SCH ×2 (08:50→13:22)
[2020-12-01] MEDS: hydrALAZINE 25 MG TABLET PO SCH ×2 (08:50→16:44)
[2020-12-01] MEDS: carvediloL 25 MG TABLET PO SCH ×2 (08:51→16:44)
[2020-12-01] MEDS: Ondansetron 4 MG/2 ML VIAL IVP PRN ×2 (08:51→16:43)
[2020-12-01 12:08] VITALS: O2SAT 98
[2020-12-01] MEDS ORDERED: *HR* Dextrose 50 % in Water (Syg) 50 ML SYRINGE IVP PRN (14:45)
[2020-12-01 16:27] VITALS: BP 131/69; PULSE 71; TEMP 98.2
== END 2020-12-01 17:46 | disposition home or self-care (01) ==
LOC: EMEROOARM 18:37 → 2ANU 18:37 → SUATTDRO 11-30 07:59 → 2ANU 11-30 10:00
PROVIDERS: ADMIT Internal Medicine; ATTEND Internal Medicine

== ENCOUNTER 2020-12-10 07:24 | Observation (INO) ==
[2020-12-10 07:57] LABS: Hematocrit 16.6 % (35.3-44.9); Red Cell Distribution Width 13.3 % (11.5-14.5)
[2020-12-10 07:59] LABS: Eosinophils # 0.1 K/mcL (0.0-0.6); Immature Platelets 3.5 % (1.1-6.1); Mean Corpuscular HGB Conc 36.1 g/dL (31.6-35.5); Mean Corpuscular Hemoglobin 30.5 pg (28.0-33.3); Mean Corpuscular Volume 84.3 fL (83.0-100.0); Red Blood Count 1.97 M/mcL (3.82-4.97); White Blood Count 5.2 K/mcL (4.3-11.1)
[2020-12-10 08:05] LABS: Platelet Count 89 K/mcL (140-400)
[2020-12-10 08:09] LABS: INR 1.3
[2020-12-10 08:12] LABS: Activated Partial Thrombo Time 48.7 Seconds (26.0-36.0)
[2020-12-10 08:21] LABS: Alanine Aminotransferase 9 Units/L (7-52); Albumin/Globulin Ratio 1.4 (1.1-2.2); Alkaline Phosphatase 48 Units/L (34-104); Aspartate Amino Transferase 11 Units/L (13-39); BUN/Creatinine Ratio 12 (6-26); Bilirubin,Direct 0.1 mg/dL (0.0-0.2); Bilirubin,Indirect 0.3 mg/dL (0.0-1.0); Bilirubin,Total 0.4 mg/dL (0.3-1.0); Blood Urea Nitrogen 60 mg/dL (6-20); Calcium 10.6 mg/dL (8.6-10.3); Carbon Dioxide 26 mEq/L (23-29); Chloride 86 mEq/L (98-107); Globulin 2.1 g/dL (2.4-3.5); Glucose 175 mg/dL (70-105); Lipase 8 Units/L (11-82); Osmolality,Calculated 275 (280-300); Potassium 3.7 mEq/L (3.5-5.1); Sodium 122 mEq/L (136-145); Total Protein 5.1 g/dL (6.4-8.9); Troponin I < 0.03 ng/mL (< 0.04); eGFR For African Americans 11 (> 60); eGFR For Non-African Americans 9 (> 60)
[2020-12-10 08:32] LABS: Lymphocytes # 0.3 K/mcL (0.6-4.6); Monocytes # 0.5 K/mcL (0.0-1.3); Neutrophils # 4.3 K/mcL (1.6-8.9); Platelet Estimate Marked Decrease (Normal)
[2020-12-10 09:09] LABS: Ethanol < 10 mg/dL (Less than 10)
[2020-12-10] MEDS ORDERED: Isovue-370 500 ML BOTTLE IVP ONE (09:50)
[2020-12-10] MEDS ORDERED: 0.9 % Sodium Chloride 250 ML ONE (10:29)
[2020-12-10] MEDS ORDERED: 0.9 % Sodium Chloride 250 ML IVC PRN (11:08)
[2020-12-10] MEDS ORDERED: 0.9 % Sodium Chloride 1,000 ML PRIME SCH (11:15)
[2020-12-10] MEDS ORDERED: *HR* HYDROmorphone (PF) 1 MG/ML SYRINGE IVP ONE (12:19)
[2020-12-10] MEDS ORDERED: Ondansetron 4 MG/2 ML VIAL IVP ONE (12:32)
[2020-12-10 14:59] LABS: VBG Ionized Calcium 1.39 mmol/L (1.15-1.35)
[2020-12-10 15:16] LABS: % Iron Saturation 52 % (15-50); Iron 81 mcg/dL (50-170); Transferrin 111 mg/dL (203-362)
[2020-12-10 15:35] LABS: Ferritin > 1500 ng/mL (10-120)
[2020-12-10 15:40] LABS: Folate 8.9 ng/mL (3.0-16.0)
[2020-12-10] MEDS ORDERED: *HR* Heparin 10,000 UNIT/10 ML VIAL IV PRN (16:04)
[2020-12-10] MEDS ORDERED: NON-FORMULARY MEDICATION 1 EACH EACH (Ondansetron Hcl [Ondansetron Hcl] 4 MG Tablet) PO PRN (17:32)
[2020-12-10] MEDS ORDERED: Fluticasone Propionate Nasal 50 MCG/SPRAY BOTTLE NS PRN (17:32)
[2020-12-10] MEDS ORDERED: NON-FORMULARY MEDICATION 1 EACH EACH (Melatonin 5 MG Tablet) PO PRN (17:32)
[2020-12-10] MEDS ORDERED: Saline Nasal Spray 44 ML BOTTLE NS PRN (17:32)
[2020-12-10] MEDS ORDERED: Acetaminophen 325 MG TABLET PO PRN (17:32)
[2020-12-10] MEDS ORDERED: Naloxone 0.4 MG/ML INJ IVP PRN (17:38)
[2020-12-10] MEDS ORDERED: Melatonin 3 MG TABLET PO PRN (17:38)
[2020-12-10] MEDS ORDERED: NIFEdipine XL (24 HR) 60 MG TAB.ER.24 PO SCH (17:45)
[2020-12-10] MEDS ORDERED: Ondansetron 4 MG/2 ML VIAL IVP SCH (18:00)
[2020-12-10] MEDS ORDERED: OXYCODONE MYRISTATE 9 MG PO SCH (18:00)
[2020-12-10] MEDS ORDERED: hydrALAZINE 25 MG TABLET PO SCH (18:15)
[2020-12-10] MEDS ORDERED: Artificial Tears SOLN 15 ML BOTTLE LEFT EYE PRN (18:15)
[2020-12-10] MEDS ORDERED: cloNIDine HCL 0.1 MG TABLET PO SCH (18:15)
[2020-12-10] MEDS ORDERED: D5% in Water 1,000 ML IVC PRN (18:48)
[2020-12-10] MEDS ORDERED: Dextrose Gel 15 GM/37.5 ML TUBE PO PRN ×2 (18:48)
[2020-12-10] MEDS ORDERED: *HR* Dextrose 50 % in Water (Syg) 50 ML SYRINGE IVP PRN (18:48)
[2020-12-10 19:42] LABS: Hematocrit 17.4 % (35.3-44.9); Hemoglobin 6.1 g/dL (11.5-15.4)
[2020-12-10] MEDS ORDERED: carvediloL 25 MG TABLET PO SCH (21:00)
[2020-12-10] MEDS: ALPRAZolam 0.5 MG TABLET PO SCH (21:36)
[2020-12-10] MEDS: *HR* OxyCODONE/APAP 10/325 TABLET PO SCH ×2 (21:37→22:39)
[2020-12-10] MEDS: Insulin DETEMIR 100 UNIT/ML X5UNITS SUBQ SCH (21:38)
[2020-12-10] MEDS: Ondansetron 4 MG/2 ML VIAL IVP PRN (21:46)
[2020-12-11] MEDS: *HR* OxyCODONE/APAP 10/325 TABLET PO SCH ×3 (04:35→21:10)
[2020-12-11 05:32] LABS: Hemoglobin 6.1 g/dL (11.5-15.4); Red Cell Distribution Width 13.9 % (11.5-14.5)
[2020-12-11 05:34] LABS: Hematocrit 17.6 % (35.3-44.9); Immature Platelets 4.1 % (1.1-6.1); Mean Corpuscular HGB Conc 34.7 g/dL (31.6-35.5); Mean Corpuscular Hemoglobin 30.7 pg (28.0-33.3); Mean Corpuscular Volume 88.4 fL (83.0-100.0); Mean Platelet Volume 10.2 fL (9.4-12.4); Red Blood Count 1.99 M/mcL (3.82-4.97); White Blood Count 2.8 K/mcL (4.3-11.1)
[2020-12-11 06:22] LABS: Calcium 9.4 mg/dL (8.6-10.3); Magnesium 2.5 mg/dL (1.6-2.6); Potassium 3.7 mEq/L (3.5-5.1); Thyroid Stimulating Hormone 6.72 mcIU/mL (0.340-5.600)
[2020-12-11] MEDS ORDERED: 0.9 % Sodium Chloride 250 ML IVC SCH (08:00)
[2020-12-11] MEDS: Cholecalciferol (D-3) 1,000 UNIT (25MCG) TABLET PO SCH (08:18)
[2020-12-11] MEDS: Renal Vitamin 1 CAP CAPSULE PO SCH (08:19)
[2020-12-11] MEDS: Ondansetron 4 MG/2 ML VIAL IVP PRN (08:19)
[2020-12-11] MEDS: Aspirin 81 MG TAB.CHEW PO SCH (08:19)
[2020-12-11] MEDS ORDERED: Metoclopramide 10 MG/2 ML VIAL IVP SCH (09:21)
[2020-12-11] MEDS ORDERED: Ondansetron 4 MG/2 ML VIAL IVP PRN (09:22)
[2020-12-11] MEDS: cloNIDine HCL 0.1 MG TABLET PO SCH ×3 (10:09→22:24)
[2020-12-11] MEDS: carvediloL 25 MG TABLET PO SCH ×2 (10:09→18:04)
[2020-12-11] MEDS: hydrALAZINE 25 MG TABLET PO SCH ×3 (10:09→22:24)
[2020-12-11] MEDS: Insulin LISPRO 300 UNITS/3 ML VIAL SUBQ SCH ×3 (10:09→18:07)
[2020-12-11] MEDS: NIFEdipine XL (24 HR) 60 MG TAB.ER.24 PO SCH (10:10)
[2020-12-11] MEDS ORDERED: D10% in Water 500 ML IVC SCH (11:15)
[2020-12-11] MEDS: Sucralfate 1 GM TABLET PO SCH ×2 (12:06→18:05)
[2020-12-11] MEDS ORDERED: 0.9 % Sodium Chloride 250 ML ONE (15:20)
[2020-12-11 20:25] LABS: Hematocrit 19.4 % (35.3-44.9); Hemoglobin 6.7 g/dL (11.5-15.4)
[2020-12-11] MEDS: Insulin DETEMIR 100 UNIT/ML X5UNITS SUBQ SCH (22:23)
[2020-12-11] MEDS: ALPRAZolam 0.5 MG TABLET PO SCH (22:25)
[2020-12-12 06:02] LABS: Basophils % 0.2 %; Eosinophils % 1.2 %; Hematocrit 18.9 % (35.3-44.9); Hemoglobin 6.5 g/dL (11.5-15.4); Mean Corpuscular HGB Conc 34.4 g/dL (31.6-35.5); Mean Corpuscular Hemoglobin 30.5 pg (28.0-33.3); Mean Corpuscular Volume 88.7 fL (83.0-100.0); Red Blood Count 2.13 M/mcL (3.82-4.97)
[2020-12-12 06:04] LABS: Eosinophils # 0.1 K/mcL (0.0-0.6); Immature Granulocytes % 0.5 % (0-4); Immature Platelets 4.5 % (1.1-6.1); Lymphocytes # 0.5 K/mcL (0.6-4.6); Mean Platelet Volume 10.4 fL (9.4-12.4); Monocytes # 0.5 K/mcL (0.0-1.3); Monocytes % 12.2 %; Neutrophils # 3.1 K/mcL (1.6-8.9); Platelet Count 61 K/mcL (140-400); Red Cell Distribution Width 13.4 % (11.5-14.5); Segmented Neutrophils % 74.9 %; White Blood Count 4.1 K/mcL (4.3-11.1)
[2020-12-12 06:22] LABS: Calcium 8.8 mg/dL (8.6-10.3); Magnesium 2.6 mg/dL (1.6-2.6); Phosphorous 3.3 mg/dL (2.7-4.5)
[2020-12-12] MEDS: Insulin LISPRO 300 UNITS/3 ML VIAL SUBQ SCH ×3 (08:24→16:29)
[2020-12-12] MEDS: Cholecalciferol (D-3) 1,000 UNIT (25MCG) TABLET PO SCH (08:34)
[2020-12-12] MEDS: hydrALAZINE 25 MG TABLET PO SCH ×2 (08:34→15:16)
[2020-12-12] MEDS: Renal Vitamin 1 CAP CAPSULE PO SCH (08:34)
[2020-12-12] MEDS: Sucralfate 1 GM TABLET PO SCH ×3 (08:35→16:29)
[2020-12-12] MEDS: cloNIDine HCL 0.1 MG TABLET PO SCH ×2 (08:35→15:16)
[2020-12-12] MEDS: NIFEdipine XL (24 HR) 60 MG TAB.ER.24 PO SCH (08:35)
[2020-12-12] MEDS: carvediloL 25 MG TABLET PO SCH ×2 (08:35→16:30)
[2020-12-12] MEDS: Aspirin 81 MG TAB.CHEW PO SCH (08:35)
[2020-12-12] MEDS ORDERED: *HR* Heparin 10,000 UNIT/10 ML VIAL IV PRN (08:40)
[2020-12-12] MEDS ORDERED: 0.9 % Sodium Chloride 250 ML IVC PRN (08:40)
[2020-12-12] MEDS ORDERED: Amoxicillin/Clavulanate 500 MG TABLET PO SCH (09:00)
[2020-12-12] MEDS ORDERED: ISAVUCONAZONIUM SULFATE 186 MG PO SCH (09:00)
[2020-12-12] MEDS ORDERED: 0.9 % Sodium Chloride 250 ML IVC SCH (09:00)
[2020-12-12 11:47] VITALS: O2SAT 98
[2020-12-12 12:42] VITALS: PULSE 69
[2020-12-12] MEDS ORDERED: FLU Vac QV 21-22 (6Month+)/PF 0.5 ML SYRINGE IM ONE (14:44)
[2020-12-12 15:20] LABS: Hemoglobin 8.9 g/dL (11.5-15.4)
[2020-12-12 16:20] LABS: Calcium 8.5 mg/dL (8.6-10.3); Potassium 3.1 mEq/L (3.5-5.1)
[2020-12-12 16:28] VITALS: BP 179/77; TEMP 98.1
[2020-12-12] MEDS ORDERED: Ergocalciferol (VIT D2) 50,000 UNIT (1.25MG) CAP PO SCH (17:32)
[2020-12-13] MEDS ORDERED: Amoxicillin/Clavulanate 500 MG TABLET PO SCH (16:00)
== END 2020-12-12 17:35 | disposition home health service (06) ==
LOC: SUATTDRO → 2ANU 07:24 → EMEROOARM 07:24 → SUATTDRO 11:26 → 2ANU 13:30
PROVIDERS: ADMIT Internal Medicine; ATTEND Internal Medicine

== ENCOUNTER 2021-01-16 21:50 | Inpatient (IN) ==
[2021-01-16] MEDS ORDERED: 0.9 % Sodium Chloride 1,000 ML IVC ONE (22:01)
[2021-01-16 22:24] LABS: Eosinophils # 0.1 K/mcL (0.0-0.6); Hematocrit 16.2 % (35.3-44.9); Immature Platelets 2.3 % (1.1-6.1); Lymphocytes # 0.3 K/mcL (0.6-4.6); Lymphocytes % 14.7 %; Mean Corpuscular HGB Conc 34.6 g/dL (31.6-35.5); Mean Corpuscular Hemoglobin 30.3 pg (28.0-33.3); Mean Corpuscular Volume 87.6 fL (83.0-100.0); Mean Platelet Volume 9.3 fL (9.4-12.4); Monocytes # 0.4 K/mcL (0.0-1.3); Monocytes % 15.1 %; Neutrophils # 1.6 K/mcL (1.6-8.9); Red Blood Count 1.85 M/mcL (3.82-4.97); Red Cell Distribution Width 14.5 % (11.5-14.5); Segmented Neutrophils % 67.2 %; White Blood Count 2.3 K/mcL (4.3-11.1)
[2021-01-16 22:26] LABS: Hemoglobin 5.6 g/dL (11.5-15.4); Platelet Count 92 K/mcL (140-400)
[2021-01-16 23:29] LABS: ABG Base Excess 3 mEq/L (-2 to 3); ABG HCO3 28 mEq/L (21-27); ABG Oxygen Saturation 92 % (95-98); ABG PCO2 49 mmHg (35-45); ABG PH 7.37 pH Units (7.32-7.45); ABG PO2 66 mmHg (85-104); ABG TCO2 30 mEq/L (20-26)
[2021-01-16 23:41] LABS: Alanine Aminotransferase 16 Units/L (7-52); Albumin 3.4 g/dL (3.5-5.7); Albumin/Globulin Ratio 1.1 (1.1-2.2); Alkaline Phosphatase 54 Units/L (34-104); Aspartate Amino Transferase 22 Units/L (13-39); BUN/Creatinine Ratio 7 (6-26); Bilirubin,Total 0.5 mg/dL (0.3-1.0); Blood Urea Nitrogen 34 mg/dL (6-20); Calcium 9.4 mg/dL (8.6-10.3); Carbon Dioxide 28 mEq/L (23-29); Chloride 86 mEq/L (98-107); Globulin 3.1 g/dL (2.4-3.5); Glucose 245 mg/dL (70-105); Osmolality,Calculated 278 (280-300); Potassium 4.2 mEq/L (3.5-5.1); Sodium 126 mEq/L (136-145); Total Protein 6.5 g/dL (6.4-8.9); Troponin I < 0.03 ng/mL (< 0.04); eGFR For African Americans 12 (> 60); eGFR For Non-African Americans 10 (> 60)
[2021-01-16 23:44] LABS: Ethanol < 10 mg/dL (Less than 10)
[2021-01-17] MEDS ORDERED: Ondansetron 4 MG/2 ML VIAL IVP ONE
[2021-01-17 06:03] LABS: Hemoglobin 6.4 g/dL (11.5-15.4); Red Cell Distribution Width 14.5 % (11.5-14.5)
[2021-01-17 06:05] LABS: Hematocrit 18.5 % (35.3-44.9); Immature Platelets 1.8 % (1.1-6.1); Mean Corpuscular HGB Conc 34.6 g/dL (31.6-35.5); Mean Corpuscular Hemoglobin 30.3 pg (28.0-33.3); Mean Corpuscular Volume 87.7 fL (83.0-100.0); Mean Platelet Volume 9.4 fL (9.4-12.4); Red Blood Count 2.11 M/mcL (3.82-4.97); White Blood Count 2.3 K/mcL (4.3-11.1)
[2021-01-17 06:23] LABS: Calcium 9.4 mg/dL (8.6-10.3); Potassium 4.6 mEq/L (3.5-5.1)
[2021-01-17] MEDS ORDERED: Naloxone 0.4 MG/ML INJ IVP PRN (07:18)
[2021-01-17] MEDS ORDERED: Melatonin 3 MG TABLET PO PRN (07:18)
[2021-01-17] MEDS ORDERED: Mag Hydrox/Al Hydrox/Simeth 30 ML UDC PO PRN (07:18)
[2021-01-17] MEDS ORDERED: 0.9 % Sodium Chloride 250 ML IVC SCH (07:30)
[2021-01-17 08:31] LABS: INR 1.1; Prothrombin Time 12.7 Seconds (9.4-12.1)
[2021-01-17] MEDS ORDERED: *HR* Heparin 10,000 UNIT/10 ML VIAL IV PRN (08:58)
[2021-01-17] MEDS ORDERED: 0.9 % Sodium Chloride 250 ML IVC PRN (08:58)
[2021-01-17] MEDS ORDERED: *HR* Dextrose 50 % in Water (Syg) 50 ML SYRINGE IVP PRN (09:02)
[2021-01-17] MEDS ORDERED: Dextrose Gel 15 GM/37.5 ML TUBE PO PRN ×2 (09:02)
[2021-01-17] MEDS ORDERED: D5% in Water 1,000 ML IVC PRN (09:02)
[2021-01-17] MEDS: *HR* OxyCODONE/APAP 10/325 TABLET PO SCH ×4 (09:26→21:49)
[2021-01-17] MEDS ORDERED: Acetaminophen 325 MG TABLET PO PRN (09:47)
[2021-01-17] MEDS ORDERED: Fluticasone Propionate Nasal 50 MCG/SPRAY BOTTLE NS PRN (09:52)
[2021-01-17] MEDS ORDERED: Perflutren Lipid Microsphere 1.3 ML in 0.9 % Sodium Chloride 8.7 ML IVP PRN (10:35)
[2021-01-17] MEDS ORDERED: Nitroglycerin 1 INCH/GM PACKET TP ONE (10:38)
[2021-01-17 10:44] LABS: Adenovirus Not Detected (Not Detect); Bordetella Pertussis Not Detected (Not Detect); Chlamydophila pneumoniae Not Detected (Not Detect); Coronavirus 229E Not Detected (Not Detect); Coronavirus HKU1 Not Detected (Not Detect); Coronavirus NL63 Not Detected (Not Detect); Coronavirus OC43 Not Detected (Not Detect); Human Metapneumovirus Not Detected (Not Detect); Human Rhinovirus/Enterovirus Not Detected (Not Detect); Influenza A Subtype 2009 H1 Not Detected (Not Detect); Influenza B Not Detected (Not Detect); Mycoplasma pneumoniae Not Detected (Not Detect); Parainfluenza Virus 1 Not Detected (Not Detect); Parainfluenza Virus 2 Not Detected (Not Detect); Parainfluenza Virus 3 Not Detected (Not Detect); Parainfluenza Virus 4 Not Detected (Not Detect); Respiratory Syncytial Virus Not Detected (Not Detect); SARS-CoV-2 Not Detected (Not Detect)
[2021-01-17] MEDS ORDERED: Isovue-370 500 ML BOTTLE IVP ONE (10:46)
[2021-01-17] MEDS: *HR* OxyCODONE ER (12 HR) 10 MG TABLET PO SCH ×2 (11:39→20:56)
[2021-01-17] MEDS: Sucralfate 1 GM TABLET PO SCH ×2 (11:40→18:47)
[2021-01-17] MEDS: ALPRAZolam 0.5 MG TABLET PO SCH ×2 (13:59→20:51)
[2021-01-17] MEDS: Ondansetron ODT 4 MG TAB.RAPDIS SL PRN (13:59)
[2021-01-17] MEDS: hydrALAZINE 25 MG TABLET PO SCH ×3 (14:00→20:50)
[2021-01-17] MEDS: cloNIDine HCL 0.1 MG TABLET PO SCH ×2 (14:01→20:52)
[2021-01-17] MEDS: Insulin LISPRO 300 UNITS/3 ML VIAL SUBQ SCH ×3 (14:20→21:50)
[2021-01-17] MEDS ORDERED: OXYCODONE MYRISTATE 9 MG PO SCH (18:00)
[2021-01-17] MEDS: carvediloL 25 MG TABLET PO SCH (18:47)
[2021-01-17] MEDS: Amoxicillin/Clavulanate 500 MG TABLET PO SCH (18:49)
[2021-01-17 20:30] LABS: Hematocrit 23.7 % (35.3-44.9); Hemoglobin 8.1 g/dL (11.5-15.4)
[2021-01-18] MEDS: *HR* OxyCODONE/APAP 10/325 TABLET PO SCH ×6 (01:26→21:28)
[2021-01-18] MEDS ORDERED: *HR* Labetalol 20 MG/4 ML SYRINGE IVP ONE (03:26)
[2021-01-18 04:17] LABS: Eosinophils % 0.6 %; Mean Platelet Volume 9.3 fL (9.4-12.4); Red Cell Distribution Width 14.6 % (11.5-14.5)
[2021-01-18 04:19] LABS: Hematocrit 23.6 % (35.3-44.9); Immature Platelets 1.1 % (1.1-6.1); Lymphocytes # 0.1 K/mcL (0.6-4.6); Lymphocytes % 6.1 %; Mean Corpuscular HGB Conc 33.9 g/dL (31.6-35.5); Mean Corpuscular Volume 88.4 fL (83.0-100.0); Monocytes # 0.1 K/mcL (0.0-1.3); Monocytes % 7.3 %; Red Blood Count 2.67 M/mcL (3.82-4.97); White Blood Count 1.8 K/mcL (4.3-11.1)
[2021-01-18 04:26] LABS: Neutrophils # 1.6 K/mcL (1.6-8.9); Platelet Count 81 K/mcL (140-400)
[2021-01-18 04:33] LABS: Potassium 4.6 mEq/L (3.5-5.1)
[2021-01-18] MEDS ORDERED: *HR* Heparin 10,000 UNIT/10 ML VIAL IV PRN (08:58)
[2021-01-18] MEDS ORDERED: 0.9 % Sodium Chloride 250 ML IVC PRN (08:58)
[2021-01-18] MEDS: Sucralfate 1 GM TABLET PO SCH ×3 (09:10→16:06)
[2021-01-18] MEDS: Insulin LISPRO 300 UNITS/3 ML VIAL SUBQ SCH ×4 (12:10→21:29)
[2021-01-18] MEDS: *HR* OxyCODONE Immed Rel 5 MG TABLET PO PRN (12:13)
[2021-01-18] MEDS: Ondansetron ODT 4 MG TAB.RAPDIS SL PRN (12:13)
[2021-01-18] MEDS: carvediloL 25 MG TABLET PO SCH ×2 (12:18→16:06)
[2021-01-18] MEDS: hydrALAZINE 25 MG TABLET PO SCH ×3 (12:20→21:29)
[2021-01-18] MEDS: cloNIDine HCL 0.1 MG TABLET PO SCH (12:20)
[2021-01-18] MEDS: ALPRAZolam 0.5 MG TABLET PO SCH ×3 (12:23→21:29)
[2021-01-18] MEDS ORDERED: Insulin DETEMIR 100 UNIT/ML X5UNITS SUBQ ONE (13:00)
[2021-01-18] MEDS: *HR* OxyCODONE ER (12 HR) 10 MG TABLET PO SCH ×2 (13:15→21:28)
[2021-01-18] MEDS: Renal Vitamin 1 CAP CAPSULE PO SCH (13:20)
[2021-01-18] MEDS: NIFEdipine XL (24 HR) 30 MG TAB.ER.24 PO SCH (13:20)
[2021-01-18] MEDS: Cholecalciferol (D-3) 1,000 UNIT (25MCG) TABLET PO SCH (13:20)
[2021-01-18] MEDS: Aspirin 81 MG TAB.CHEW PO SCH (13:21)
[2021-01-18] MEDS: ISAVUCONAZONIUM SULFATE 186 MG PO SCH (13:21)
[2021-01-18] MEDS ORDERED: Amoxicillin/Clavulanate 500 MG TABLET PO SCH (18:00)
[2021-01-18] MEDS: *HR* Promethazine 25 MG/ML VIAL IM PRN (20:30)
[2021-01-19] MEDS: *HR* OxyCODONE Immed Rel 5 MG TABLET PO PRN (00:21)
[2021-01-19] MEDS: Insulin DETEMIR 100 UNIT/ML X5UNITS SUBQ SCH ×2 (00:22→07:54)
[2021-01-19] MEDS: *HR* OxyCODONE/APAP 10/325 TABLET PO SCH ×4 (00:59→13:42)
[2021-01-19] MEDS: Amoxicillin/Clavulanate 500 MG TABLET PO SCH (07:22)
[2021-01-19 07:33] LABS: Hemoglobin 7.6 g/dL (11.5-15.4); Immature Granulocytes % 0.9 % (0-4); Red Cell Distribution Width 14.3 % (11.5-14.5)
[2021-01-19 07:35] LABS: Eosinophils # 0.1 K/mcL (0.0-0.6); Eosinophils % 2.8 %; Hematocrit 21.8 % (35.3-44.9); Immature Platelets 1.7 % (1.1-6.1); Lymphocytes # 0.5 K/mcL (0.6-4.6); Lymphocytes % 21.7 %; Mean Corpuscular HGB Conc 34.9 g/dL (31.6-35.5); Mean Corpuscular Hemoglobin 29.6 pg (28.0-33.3); Mean Corpuscular Volume 84.8 fL (83.0-100.0); Mean Platelet Volume 9.3 fL (9.4-12.4); Monocytes # 0.3 K/mcL (0.0-1.3); Monocytes % 15.1 %; Neutrophils # 1.3 K/mcL (1.6-8.9); Red Blood Count 2.57 M/mcL (3.82-4.97); Segmented Neutrophils % 59.5 %; White Blood Count 2.1 K/mcL (4.3-11.1)
[2021-01-19 07:42] LABS: Platelet Count 78 K/mcL (140-400)
[2021-01-19] MEDS ORDERED: *HR* Heparin 10,000 UNIT/10 ML VIAL IV PRN (07:44)
[2021-01-19] MEDS ORDERED: 0.9 % Sodium Chloride 250 ML IVC PRN (07:44)
[2021-01-19] MEDS ORDERED: 0.9 % Sodium Chloride 1,000 ML PRIME SCH (07:45)
[2021-01-19] MEDS: Aspirin 81 MG TAB.CHEW PO SCH (07:52)
[2021-01-19] MEDS: Renal Vitamin 1 CAP CAPSULE PO SCH (07:53)
[2021-01-19] MEDS: *HR* OxyCODONE ER (12 HR) 10 MG TABLET PO SCH (07:53)
[2021-01-19] MEDS: Cholecalciferol (D-3) 1,000 UNIT (25MCG) TABLET PO SCH (07:53)
[2021-01-19] MEDS: Sucralfate 1 GM TABLET PO SCH ×2 (07:53→11:11)
[2021-01-19] MEDS: hydrALAZINE 25 MG TABLET PO SCH (07:53)
[2021-01-19] MEDS: NIFEdipine XL (24 HR) 30 MG TAB.ER.24 PO SCH (07:53)
[2021-01-19] MEDS: ALPRAZolam 0.5 MG TABLET PO SCH (07:53)
[2021-01-19] MEDS: carvediloL 25 MG TABLET PO SCH (07:54)
[2021-01-19] MEDS: ISAVUCONAZONIUM SULFATE 186 MG PO SCH (07:55)
[2021-01-19] MEDS: Insulin LISPRO 300 UNITS/3 ML VIAL SUBQ SCH ×2 (07:59→11:11)
[2021-01-19] MEDS: Ondansetron ODT 4 MG TAB.RAPDIS SL PRN (08:03)
[2021-01-19 08:04] VITALS: PULSE 70; O2SAT 100
[2021-01-19 08:15] LABS: Calcium 8.3 mg/dL (8.6-10.3); Magnesium 2.5 mg/dL (1.6-2.6); Phosphorous 4.6 mg/dL (2.7-4.5); Potassium 4.6 mEq/L (3.5-5.1)
[2021-01-19] MEDS: *HR* Promethazine 25 MG/ML VIAL IM PRN (12:11)
[2021-01-19 13:28] VITALS: BP 151/74; TEMP 98.7
== END 2021-01-19 15:22 | disposition home or self-care (01) | DRG 808 ==
LOC: 2ANU 21:50 → EMEROOARM 21:50 → SUATTDRO 01-17 09:00 → 2ANU 01-17 10:40
PROVIDERS: ADMIT Family Medicine; ATTEND Internal Medicine

== ENCOUNTER 2021-02-03 17:40 | Inpatient (IN) ==
[2021-02-03 20:15] LABS: Troponin I < 0.03 ng/mL (< 0.04)
[2021-02-03 22:19] LABS: Basophils % 0.3 %; Eosinophils # 0.1 K/mcL (0.0-0.6); Eosinophils % 3.7 %; Hematocrit 20.7 % (35.3-44.9); Hemoglobin 7.3 g/dL (11.5-15.4); Immature Granulocytes % 0.3 % (0-4); Immature Platelets 2.3 % (1.1-6.1); Lymphocytes # 0.6 K/mcL (0.6-4.6); Lymphocytes % 19.4 %; Mean Corpuscular HGB Conc 35.3 g/dL (31.6-35.5); Mean Corpuscular Volume 85.2 fL (83.0-100.0); Mean Platelet Volume 9.5 fL (9.4-12.4); Monocytes # 0.5 K/mcL (0.0-1.3); Monocytes % 15.4 %; Neutrophils # 1.8 K/mcL (1.6-8.9); Platelet Count 114 K/mcL (140-400); Red Blood Count 2.43 M/mcL (3.82-4.97); Red Cell Distribution Width 13.3 % (11.5-14.5); Segmented Neutrophils % 60.9 %
[2021-02-03 22:27] LABS: BUN/Creatinine Ratio 6 (6-26); Blood Urea Nitrogen 22 mg/dL (6-20); Carbon Dioxide 25 mEq/L (23-29); Chloride 88 mEq/L (98-107); Glucose 167 mg/dL (70-105); Osmolality,Calculated 267 (280-300); Potassium 2.9 mEq/L (3.5-5.1); Sodium 125 mEq/L (136-145); eGFR For African Americans 15 (> 60); eGFR For Non-African Americans 13 (> 60)
[2021-02-03] MEDS ORDERED: *HR* OxyCODONE/APAP 10/325 TABLET PO STA (22:46)
[2021-02-04 00:39] LABS: Influenza A PCR Negative (Negative); Influenza B PCR Negative (Negative); Resp. Syncytial Virus PCR Negative (Negative)
[2021-02-04 00:40] LABS: SARS-CoV-2 by PCR (In House) Negative (Negative)
[2021-02-04] MEDS ORDERED: *HR* OxyCODONE Immed Rel 5 MG TABLET PO PRN (01:25)
[2021-02-04] MEDS ORDERED: Acetaminophen 325 MG TABLET PO PRN (01:25)
[2021-02-04] MEDS ORDERED: Naloxone 0.4 MG/ML INJ IVP PRN (01:25)
[2021-02-04] MEDS ORDERED: *HR* HYDROcodone/Acet 5/325 mg TABLET PO PRN (01:25)
[2021-02-04] MEDS ORDERED: Melatonin 3 MG TABLET PO PRN (01:25)
[2021-02-04] MEDS ORDERED: *HR* Dextrose 50 % in Water (Syg) 50 ML SYRINGE IVP PRN (01:29)
[2021-02-04] MEDS ORDERED: D5% in Water 1,000 ML IVC PRN (01:29)
[2021-02-04] MEDS ORDERED: Dextrose Gel 15 GM/37.5 ML TUBE PO PRN ×2 (01:29)
[2021-02-04] MEDS ORDERED: NON-FORMULARY MEDICATION 1 EACH EACH (Hydralazine Hcl 50 MG Tablet) PO SCH (04:00)
[2021-02-04] MEDS: hydrALAZINE 25 MG TABLET PO SCH ×3 (04:06→21:25)
[2021-02-04] MEDS: NIFEdipine XL (24 HR) 60 MG TAB.ER.24 PO SCH (04:06)
[2021-02-04] MEDS ORDERED: Fluticasone Propionate Nasal 50 MCG/SPRAY BOTTLE NS PRN (05:48)
[2021-02-04] MEDS ORDERED: NON-FORMULARY MEDICATION 1 EACH EACH (Melatonin 5 MG Tablet) PO PRN (05:48)
[2021-02-04] MEDS ORDERED: Artificial Tears SOLN 15 ML BOTTLE LEFT EYE PRN (06:00)
[2021-02-04] MEDS ORDERED: Vancomycin 1 EACH in 0.9 % Sodium Chloride 250 ML IVPB PRN (07:00)
[2021-02-04] MEDS ORDERED: 0.9 % Sodium Chloride 250 ML IVC PRN (07:09)
[2021-02-04] MEDS ORDERED: 0.9 % Sodium Chloride 1,000 ML PRIME SCH (07:15)
[2021-02-04] MEDS: ISAVUCONAZONIUM SULFATE 186 MG PO SCH (07:30)
[2021-02-04] MEDS: Insulin LISPRO 300 UNITS/3 ML VIAL SUBQ SCH ×4 (07:30→19:41)
[2021-02-04] MEDS: *HR* OxyCODONE/APAP 10/325 TABLET PO PRN ×2 (08:33→17:05)
[2021-02-04] MEDS: Cholecalciferol (D-3) 1,000 UNIT (25MCG) TABLET PO SCH (08:34)
[2021-02-04] MEDS: Renal Vitamin 1 CAP CAPSULE PO SCH (08:34)
[2021-02-04] MEDS: Aspirin 81 MG TAB.CHEW PO SCH (08:34)
[2021-02-04] MEDS: Sucralfate 1 GM TABLET PO SCH ×3 (08:34→19:41)
[2021-02-04] MEDS: Amoxicillin/Clavulanate 500 MG TABLET PO SCH ×2 (08:34→09:00)
[2021-02-04] MEDS: carvediloL 25 MG TABLET PO SCH ×2 (08:34→17:05)
[2021-02-04] MEDS ORDERED: NIFEdipine XL (24 HR) 30 MG TAB.ER.24 PO SCH (09:00)
[2021-02-04 10:15] LABS: Hemoglobin 7.1 g/dL (11.5-15.4); Mean Corpuscular Volume 84.2 fL (83.0-100.0); Red Cell Distribution Width 13.1 % (11.5-14.5)
[2021-02-04 10:16] LABS: Hematocrit 20.2 % (35.3-44.9); Immature Platelets 1.6 % (1.1-6.1); Mean Corpuscular HGB Conc 35.1 g/dL (31.6-35.5); Mean Corpuscular Hemoglobin 29.6 pg (28.0-33.3); Mean Platelet Volume 9.1 fL (9.4-12.4); Red Blood Count 2.4 M/mcL (3.82-4.97); White Blood Count 2.4 K/mcL (4.3-11.1)
[2021-02-04 10:22] LABS: INR 1.1; Prothrombin Time 12.8 Seconds (9.4-12.1)
[2021-02-04 10:36] LABS: Calcium 9.7 mg/dL (8.6-10.3); Magnesium 2.2 mg/dL (1.6-2.6); Phosphorous 5.7 mg/dL (2.7-4.5); Potassium 3.6 mEq/L (3.5-5.1)
[2021-02-04 12:48] LABS: Estimated Average Glucose 143 mg/dl; Hemoglobin A1C 6.6 %
[2021-02-04] MEDS: *HR* Promethazine 25 MG/ML VIAL IM PRN (19:46)
[2021-02-04] MEDS: ALPRAZolam 1 MG TABLET PO PRN (21:25)
[2021-02-05] MEDS: *HR* Promethazine 25 MG/ML VIAL IM PRN (05:09)
[2021-02-05] MEDS: hydrALAZINE 25 MG TABLET PO SCH ×3 (05:09→20:10)
[2021-02-05] MEDS: *HR* OxyCODONE/APAP 10/325 TABLET PO PRN ×2 (05:13→17:25)
[2021-02-05] MEDS ORDERED: Vancomycin 1,250 MG/262.5 ML IV.SOLN IVPB ONE ×2 (06:00)
[2021-02-05] MEDS: Insulin LISPRO 300 UNITS/3 ML VIAL SUBQ SCH ×4 (07:21→20:23)
[2021-02-05] MEDS: carvediloL 25 MG TABLET PO SCH ×2 (08:00→16:44)
[2021-02-05] MEDS: Aspirin 81 MG TAB.CHEW PO SCH (08:00)
[2021-02-05] MEDS: Cholecalciferol (D-3) 1,000 UNIT (25MCG) TABLET PO SCH (09:00)
[2021-02-05] MEDS: Sucralfate 1 GM TABLET PO SCH ×2 (09:00→20:23)
[2021-02-05] MEDS: Amoxicillin/Clavulanate 500 MG TABLET PO SCH (09:00)
[2021-02-05] MEDS: NIFEdipine XL (24 HR) 60 MG TAB.ER.24 PO SCH (09:00)
[2021-02-05] MEDS: ISAVUCONAZONIUM SULFATE 186 MG PO SCH (09:00)
[2021-02-05] MEDS: Renal Vitamin 1 CAP CAPSULE PO SCH (09:00)
[2021-02-05] MEDS: Ondansetron ODT 4 MG TAB.RAPDIS SL PRN (09:59)
[2021-02-05 10:49] LABS: Potassium 3.9 mEq/L (3.5-5.1)
[2021-02-05 13:03] LABS: Hematocrit 19.6 % (35.3-44.9); Hemoglobin 6.9 g/dL (11.5-15.4); Mean Corpuscular HGB Conc 35.2 g/dL (31.6-35.5); Mean Corpuscular Hemoglobin 29.1 pg (28.0-33.3); Mean Corpuscular Volume 82.7 fL (83.0-100.0); Mean Platelet Volume 9.6 fL (9.4-12.4); Red Blood Count 2.37 M/mcL (3.82-4.97); Red Cell Distribution Width 13.3 % (11.5-14.5); White Blood Count 3.2 K/mcL (4.3-11.1)
[2021-02-05 13:04] LABS: Platelet Count 90 K/mcL (140-400)
[2021-02-05] MEDS: ALPRAZolam 1 MG TABLET PO PRN (20:17)
[2021-02-06 03:29] LABS: Hematocrit 20.7 % (35.3-44.9); Hemoglobin 6.9 g/dL (11.5-15.4); Mean Corpuscular HGB Conc 33.3 g/dL (31.6-35.5); Mean Corpuscular Hemoglobin 29.9 pg (28.0-33.3); Mean Corpuscular Volume 89.6 fL (83.0-100.0); Mean Platelet Volume 9.8 fL (9.4-12.4); Platelet Count 104 K/mcL (140-400); Red Blood Count 2.31 M/mcL (3.82-4.97); Red Cell Distribution Width 13.7 % (11.5-14.5); White Blood Count 4.1 K/mcL (4.3-11.1)
[2021-02-06 03:34] LABS: Calcium 8.8 mg/dL (8.6-10.3); Potassium 4.3 mEq/L (3.5-5.1)
[2021-02-06] MEDS ORDERED: Insulin LISPRO 300 UNITS/3 ML VIAL SUBQ ONE (03:55)
[2021-02-06] MEDS: hydrALAZINE 25 MG TABLET PO SCH ×3 (05:22→19:47)
[2021-02-06] MEDS ORDERED: 0.9 % Sodium Chloride 250 ML IVC PRN (07:07)
[2021-02-06] MEDS: Insulin LISPRO 300 UNITS/3 ML VIAL SUBQ SCH ×4 (07:40→19:54)
[2021-02-06] MEDS: Ondansetron ODT 4 MG TAB.RAPDIS SL PRN (09:26)
[2021-02-06] MEDS: NIFEdipine XL (24 HR) 60 MG TAB.ER.24 PO SCH (09:27)
[2021-02-06] MEDS: *HR* OxyCODONE/APAP 10/325 TABLET PO PRN ×2 (09:27→15:23)
[2021-02-06] MEDS: carvediloL 25 MG TABLET PO SCH ×2 (09:27→15:23)
[2021-02-06] MEDS: Aspirin 81 MG TAB.CHEW PO SCH (09:27)
[2021-02-06] MEDS: Amoxicillin/Clavulanate 500 MG TABLET PO SCH (09:27)
[2021-02-06] MEDS: Cholecalciferol (D-3) 1,000 UNIT (25MCG) TABLET PO SCH (09:27)
[2021-02-06] MEDS: Renal Vitamin 1 CAP CAPSULE PO SCH (09:27)
[2021-02-06] MEDS: ISAVUCONAZONIUM SULFATE 186 MG PO SCH (09:28)
[2021-02-06] MEDS: Sucralfate 1 GM TABLET PO SCH ×2 (09:31→19:55)
[2021-02-06] MEDS: ALPRAZolam 1 MG TABLET PO PRN ×2 (09:34→19:48)
[2021-02-06] MEDS ORDERED: *HR* Heparin 10,000 UNIT/10 ML VIAL IV PRN (10:03)
[2021-02-06] MEDS: Sennosides/Docusate Sodium TABLET PO PRN (15:23)
[2021-02-06] MEDS ORDERED: Vancomycin 1,250 MG/262.5 ML IV.SOLN IVPB ONE (16:00)
[2021-02-06] MEDS: XTAMPZA 9 MG PO SCH (20:13)
[2021-02-07] MEDS: hydrALAZINE 25 MG TABLET PO SCH ×3 (04:48→20:22)
[2021-02-07 05:20] LABS: Hemoglobin 7.9 g/dL (11.5-15.4); Mean Corpuscular HGB Conc 34.3 g/dL (31.6-35.5); Mean Corpuscular Hemoglobin 30.2 pg (28.0-33.3); Mean Corpuscular Volume 87.8 fL (83.0-100.0); Mean Platelet Volume 9.3 fL (9.4-12.4); Platelet Count 101 K/mcL (140-400); Red Blood Count 2.62 M/mcL (3.82-4.97); Red Cell Distribution Width 13.7 % (11.5-14.5)
[2021-02-07 05:32] LABS: Calcium 8.7 mg/dL (8.6-10.3); Potassium 3.7 mEq/L (3.5-5.1)
[2021-02-07] MEDS: Cholecalciferol (D-3) 1,000 UNIT (25MCG) TABLET PO SCH (08:46)
[2021-02-07] MEDS: Sennosides/Docusate Sodium TABLET PO PRN (08:46)
[2021-02-07] MEDS: Ondansetron ODT 4 MG TAB.RAPDIS SL PRN ×2 (08:46→16:01)
[2021-02-07] MEDS: Aspirin 81 MG TAB.CHEW PO SCH (08:46)
[2021-02-07] MEDS: XTAMPZA 9 MG PO SCH ×2 (08:47→20:22)
[2021-02-07] MEDS: NIFEdipine XL (24 HR) 60 MG TAB.ER.24 PO SCH (08:47)
[2021-02-07] MEDS: Insulin LISPRO 300 UNITS/3 ML VIAL SUBQ SCH ×4 (08:47→20:36)
[2021-02-07] MEDS: Sucralfate 1 GM TABLET PO SCH ×2 (08:47→20:36)
[2021-02-07] MEDS: Renal Vitamin 1 CAP CAPSULE PO SCH (08:47)
[2021-02-07] MEDS: carvediloL 25 MG TABLET PO SCH ×2 (08:47→17:58)
[2021-02-07] MEDS: ALPRAZolam 1 MG TABLET PO PRN (09:26)
[2021-02-07] MEDS: *HR* OxyCODONE/APAP 10/325 TABLET PO PRN (09:26)
[2021-02-07] MEDS: ISAVUCONAZONIUM SULFATE 186 MG PO SCH (11:54)
[2021-02-07] MEDS: polyethylene glycoL 3350 17 GM POWD.PACK PO SCH (11:56)
[2021-02-07] MEDS: Amoxicillin/Clavulanate 500 MG TABLET PO SCH (16:01)
[2021-02-08] MEDS: Ondansetron ODT 4 MG TAB.RAPDIS SL PRN ×2 (01:29→22:24)
[2021-02-08] MEDS: *HR* OxyCODONE/APAP 10/325 TABLET PO PRN ×2 (01:29→14:31)
[2021-02-08] MEDS: hydrALAZINE 25 MG TABLET PO SCH ×3 (05:53→22:26)
[2021-02-08] MEDS ORDERED: 0.9 % Sodium Chloride 250 ML IVC PRN (07:00)
[2021-02-08] MEDS: Insulin LISPRO 300 UNITS/3 ML VIAL SUBQ SCH ×5 (08:18→22:32)
[2021-02-08 08:54] LABS: Hemoglobin 7.7 g/dL (11.5-15.4)
[2021-02-08 08:58] LABS: Hematocrit 24.9 % (35.3-44.9); Mean Corpuscular HGB Conc 30.9 g/dL (31.6-35.5); Mean Corpuscular Hemoglobin 29.5 pg (28.0-33.3); Mean Corpuscular Volume 95.4 fL (83.0-100.0); Mean Platelet Volume 9.4 fL (9.4-12.4); Platelet Count 116 K/mcL (140-400); Red Blood Count 2.61 M/mcL (3.82-4.97); Red Cell Distribution Width 14.4 % (11.5-14.5); White Blood Count 5.1 K/mcL (4.3-11.1)
[2021-02-08] MEDS: Aspirin 81 MG TAB.CHEW PO SCH (09:00)
[2021-02-08] MEDS: XTAMPZA 9 MG PO SCH (09:00)
[2021-02-08] MEDS: Renal Vitamin 1 CAP CAPSULE PO SCH (09:00)
[2021-02-08] MEDS: polyethylene glycoL 3350 17 GM POWD.PACK PO SCH (09:00)
[2021-02-08] MEDS: carvediloL 25 MG TABLET PO SCH ×2 (09:00→16:24)
[2021-02-08] MEDS: Sucralfate 1 GM TABLET PO SCH ×2 (09:00→22:26)
[2021-02-08 09:23] LABS: Calcium 9.6 mg/dL (8.6-10.3); Potassium 4.2 mEq/L (3.5-5.1)
[2021-02-08] MEDS: ISAVUCONAZONIUM SULFATE 186 MG PO SCH (10:50)
[2021-02-08] MEDS: Cholecalciferol (D-3) 1,000 UNIT (25MCG) TABLET PO SCH (10:52)
[2021-02-08] MEDS ORDERED: *HR* Heparin 10,000 UNIT/10 ML VIAL IV PRN (12:06)
[2021-02-08] MEDS: NIFEdipine XL (24 HR) 60 MG TAB.ER.24 PO SCH (14:31)
[2021-02-08] MEDS: Amoxicillin/Clavulanate 500 MG TABLET PO SCH (16:24)
[2021-02-08] MEDS ORDERED: Insulin DETEMIR 100 UNIT/ML X5UNITS SUBQ SCH (21:00)
[2021-02-09] MEDS: Sucralfate 1 GM TABLET PO SCH ×3 (00:44→21:54)
[2021-02-09] MEDS: XTAMPZA 9 MG PO SCH ×3 (01:18→21:55)
[2021-02-09] MEDS: Ondansetron ODT 4 MG TAB.RAPDIS SL PRN ×2 (05:23→12:07)
[2021-02-09] MEDS: hydrALAZINE 25 MG TABLET PO SCH ×3 (05:26→22:12)
[2021-02-09 07:30] LABS: Basophils % 0.4 %; Eosinophils # 0.1 K/mcL (0.0-0.6); Eosinophils % 2.5 %; Hematocrit 21.9 % (35.3-44.9); Hemoglobin 7.3 g/dL (11.5-15.4); Immature Granulocytes % 0.4 % (0-4); Lymphocytes # 0.4 K/mcL (0.6-4.6); Lymphocytes % 14.3 %; Mean Corpuscular HGB Conc 33.3 g/dL (31.6-35.5); Mean Corpuscular Hemoglobin 29.6 pg (28.0-33.3); Monocytes # 0.4 K/mcL (0.0-1.3); Monocytes % 14.3 %; Neutrophils # 1.9 K/mcL (1.6-8.9); Red Blood Count 2.47 M/mcL (3.82-4.97); Red Cell Distribution Width 14.2 % (11.5-14.5); Segmented Neutrophils % 68.1 %; White Blood Count 2.8 K/mcL (4.3-11.1)
[2021-02-09 07:31] LABS: Mean Corpuscular Volume 88.7 fL (83.0-100.0); Platelet Count 94 K/mcL (140-400)
[2021-02-09 08:55] LABS: Potassium 3.2 mEq/L (3.5-5.1)
[2021-02-09] MEDS: Insulin LISPRO 300 UNITS/3 ML VIAL SUBQ SCH ×4 (09:02→21:55)
[2021-02-09] MEDS: Renal Vitamin 1 CAP CAPSULE PO SCH (09:18)
[2021-02-09] MEDS: Aspirin 81 MG TAB.CHEW PO SCH (09:18)
[2021-02-09] MEDS: Cholecalciferol (D-3) 1,000 UNIT (25MCG) TABLET PO SCH (09:18)
[2021-02-09] MEDS: *HR* OxyCODONE/APAP 10/325 TABLET PO PRN (09:18)
[2021-02-09] MEDS: carvediloL 25 MG TABLET PO SCH ×2 (09:18→16:50)
[2021-02-09] MEDS: polyethylene glycoL 3350 17 GM POWD.PACK PO SCH (09:18)
[2021-02-09] MEDS: NIFEdipine XL (24 HR) 60 MG TAB.ER.24 PO SCH (09:18)
[2021-02-09] MEDS: ISAVUCONAZONIUM SULFATE 186 MG PO SCH (09:19)
[2021-02-09] MEDS: ALPRAZolam 1 MG TABLET PO PRN (12:07)
[2021-02-09] MEDS: Amoxicillin/Clavulanate 500 MG TABLET PO SCH (16:50)
[2021-02-09] MEDS: Ondansetron 4 MG/2 ML VIAL IVP PRN (19:15)
[2021-02-10 00:31] VITALS: O2SAT 99
[2021-02-10] MEDS: Ondansetron 4 MG/2 ML VIAL IVP PRN (03:12)
[2021-02-10 05:44] LABS: Basophils % 0.7 %
[2021-02-10 05:46] LABS: Hematocrit 24.3 % (35.3-44.9); Hemoglobin 7.5 g/dL (11.5-15.4); Immature Granulocytes % 1.7 % (0-4); Immature Platelets 1.5 % (1.1-6.1); Lymphocytes # 0.4 K/mcL (0.6-4.6); Lymphocytes % 14.4 %; Mean Corpuscular HGB Conc 30.9 g/dL (31.6-35.5); Mean Corpuscular Hemoglobin 29.1 pg (28.0-33.3); Mean Corpuscular Volume 94.2 fL (83.0-100.0); Mean Platelet Volume 9.6 fL (9.4-12.4); Monocytes # 0.4 K/mcL (0.0-1.3); Red Blood Count 2.58 M/mcL (3.82-4.97); Red Cell Distribution Width 14.2 % (11.5-14.5); Segmented Neutrophils % 70.2 %; White Blood Count 2.9 K/mcL (4.3-11.1)
[2021-02-10 05:49] LABS: Calcium 9.2 mg/dL (8.6-10.3); Potassium 3.7 mEq/L (3.5-5.1)
[2021-02-10] MEDS: hydrALAZINE 25 MG TABLET PO SCH (06:02)
[2021-02-10 06:45] LABS: Platelet Count 71 K/mcL (140-400)
[2021-02-10 06:46] LABS: Platelet Estimate Marked Decrease (Normal)
[2021-02-10] MEDS ORDERED: 0.9 % Sodium Chloride 250 ML IVC PRN (06:55)
[2021-02-10] MEDS: ALPRAZolam 1 MG TABLET PO PRN (06:58)
[2021-02-10 07:37] VITALS: PULSE 92
[2021-02-10] MEDS: Sucralfate 1 GM TABLET PO SCH (07:54)
[2021-02-10] MEDS: carvediloL 25 MG TABLET PO SCH (07:54)
[2021-02-10] MEDS: Renal Vitamin 1 CAP CAPSULE PO SCH (07:54)
[2021-02-10] MEDS: Aspirin 81 MG TAB.CHEW PO SCH (07:54)
[2021-02-10] MEDS: NIFEdipine XL (24 HR) 60 MG TAB.ER.24 PO SCH (07:54)
[2021-02-10] MEDS: Insulin LISPRO 300 UNITS/3 ML VIAL SUBQ SCH (07:56)
[2021-02-10] MEDS: *HR* OxyCODONE/APAP 10/325 TABLET PO PRN (09:19)
[2021-02-10] MEDS: polyethylene glycoL 3350 17 GM POWD.PACK PO SCH (09:50)
[2021-02-10] MEDS ORDERED: *HR* Heparin 10,000 UNIT/10 ML VIAL IV PRN (13:06)
[2021-02-10 14:00] VITALS: BP 179/87
[2021-02-10 14:01] VITALS: TEMP 98.8
[2021-02-10] MEDS: Ondansetron ODT 4 MG TAB.RAPDIS SL PRN (15:28)
[2021-02-10] MEDS ORDERED: Vancomycin 500 MG in 0.9 % Sodium Chloride Mini Bag 100 ML IVPB ONE (16:00)
== END 2021-02-10 17:00 | disposition home health service (06) | DRG 314 ==
LOC: SUATTDRO → EMEROOARM 17:40 → 2ANU 17:40 → SUATTDRO 23:26 → 2ANU 02-04 00:43 → SUATTDRO 02-04 18:41
PROVIDERS: ADMIT Internal Medicine; ATTEND General Practice

== ENCOUNTER 2021-02-13 16:13 | Inpatient (IN) ==
[2021-02-13] MEDS ORDERED: 0.9 % Sodium Chloride 1,000 ML IVC ONE (16:33)
[2021-02-13] MEDS ORDERED: Ondansetron 4 MG/2 ML VIAL IVP ONE (16:55)
[2021-02-13] MEDS ORDERED: *HR* Alteplase (Cathflo) 2 MG VIAL IVP ONE (16:59)
[2021-02-13 17:48] LABS: Influenza A PCR Negative (Negative); Influenza B PCR Negative (Negative); Resp. Syncytial Virus PCR Negative (Negative)
[2021-02-13 17:49] LABS: SARS-CoV-2 by PCR (In House) Negative (Negative)
[2021-02-13 18:43] LABS: ABG Base Excess -6 mEq/L (-2 to 3); ABG HCO3 19 mEq/L (21-27); ABG Oxygen Saturation 91 % (95-98); ABG PCO2 33 mmHg (35-45); ABG PH 7.37 pH Units (7.32-7.45); ABG PO2 63 mmHg (85-104); ABG TCO2 20 mEq/L (20-26)
[2021-02-13 19:40] LABS: Hemoglobin 6.5 g/dL (11.5-15.4); Immature Granulocytes % 0.5 % (0-4)
[2021-02-13 19:42] LABS: Basophils % 0.5 %; Eosinophils # 0.1 K/mcL (0.0-0.6); Eosinophils % 4.8 %; Hematocrit 19.2 % (35.3-44.9); Immature Platelets 0.8 % (1.1-6.1); Lymphocytes # 0.3 K/mcL (0.6-4.6); Lymphocytes % 15.4 %; Mean Corpuscular HGB Conc 33.9 g/dL (31.6-35.5); Mean Corpuscular Hemoglobin 30.2 pg (28.0-33.3); Mean Corpuscular Volume 89.3 fL (83.0-100.0); Mean Platelet Volume 8.9 fL (9.4-12.4); Monocytes # 0.2 K/mcL (0.0-1.3); Monocytes % 10.6 %; Neutrophils # 1.4 K/mcL (1.6-8.9); Red Blood Count 2.15 M/mcL (3.82-4.97); Segmented Neutrophils % 68.2 %; White Blood Count 2.1 K/mcL (4.3-11.1)
[2021-02-13 19:44] LABS: Platelet Count 62 K/mcL (140-400)
[2021-02-13] MEDS ORDERED: Morphine Sulfate 2 MG/ML SYRINGE IVP ONE (19:49)
[2021-02-13 20:04] LABS: Albumin/Globulin Ratio 1.2 (1.1-2.2); Bilirubin,Total 0.5 mg/dL (0.3-1.0); Calcium 8.7 mg/dL (8.6-10.3); Globulin 2.5 g/dL (2.4-3.5); Potassium 3.1 mEq/L (3.5-5.1); Total Protein 5.5 g/dL (6.4-8.9)
[2021-02-13] MEDS ORDERED: Isovue-370 500 ML BOTTLE IVP ONE (20:53)
[2021-02-13 21:44] LABS: INR 1.1; Prothrombin Time 12.6 Seconds (9.4-12.1)
[2021-02-13] MEDS ORDERED: 0.9 % Sodium Chloride 250 ML ONE (21:49)
[2021-02-14] MEDS ORDERED: 0.9 % Sodium Chloride 1,000 ML IVC ONE (00:16)
[2021-02-14] MEDS ORDERED: D5% in 0.45% NACL w KCl 20 MEQ/1,000 ML MLS IVC PRN (01:27)
[2021-02-14] MEDS ORDERED: D5% in 0.45% NACL 1,000 ML IVC PRN (01:27)
[2021-02-14] MEDS ORDERED: Naloxone 0.4 MG/ML INJ IVP PRN (01:30)
[2021-02-14] MEDS: Ondansetron 4 MG/2 ML VIAL IVP PRN ×3 (01:54→14:41)
[2021-02-14] MEDS: 0.45 % Sodium Chloride w/KCl 20 MEQ/1,000 ML MLS IVC SCH (02:20)
[2021-02-14] MEDS: *HR* HYDROmorphone (PF) 1 MG/ML SYRINGE IVP PRN ×5 (02:22→23:18)
[2021-02-14] MEDS ORDERED: Azithromycin 500 MG in 0.9 % Sodium Chloride 250 ML IVPB SCH (03:00)
[2021-02-14 03:08] LABS: VBG HCO3 13 mEq/L (21-27); VBG PCO2 26 mmHg (41-51); VBG PH 7.29 pH Units (7.32-7.42); VBG PO2 149 mmHg (25-50)
[2021-02-14 03:12] LABS: Hematocrit 20.9 % (35.3-44.9)
[2021-02-14] MEDS: niCARdipine 20 MG/200 ML MLS IVC SCH ×3 (04:13→21:58)
[2021-02-14 04:35] LABS: Calcium 7.8 mg/dL (8.6-10.3); Potassium 4.8 mEq/L (3.5-5.1)
[2021-02-14] MEDS: Metoclopramide 10 MG/2 ML VIAL IVP PRN ×3 (04:43→18:26)
[2021-02-14 05:36] LABS: VBG HCO3 19 mEq/L (21-27); VBG PCO2 34 mmHg (41-51); VBG PH 7.36 pH Units (7.32-7.42); VBG PO2 110 mmHg (25-50)
[2021-02-14 05:58] LABS: Mean Corpuscular Volume 86.5 fL (83.0-100.0); Red Cell Distribution Width 14.4 % (11.5-14.5)
[2021-02-14 06:00] LABS: Hematocrit 22.4 % (35.3-44.9); Hemoglobin 7.5 g/dL (11.5-15.4); Mean Corpuscular HGB Conc 33.5 g/dL (31.6-35.5); Mean Platelet Volume 9.2 fL (9.4-12.4); Red Blood Count 2.59 M/mcL (3.82-4.97)
[2021-02-14 06:57] LABS: Calcium 7.9 mg/dL (8.6-10.3); Potassium 3.5 mEq/L (3.5-5.1)
[2021-02-14] MEDS ORDERED: cefTRIAXone 1,000 MG in 0.9 % Sodium Chloride Mini Bag 100 ML IVPB SCH (09:00)
[2021-02-14 10:31] LABS: VBG HCO3 26 mEq/L (21-27); VBG PCO2 42 mmHg (41-51); VBG PH 7.39 pH Units (7.32-7.42); VBG PO2 137 mmHg (25-50)
[2021-02-14] MEDS: *HR* Dextrose 50 % in Water (Syg) 50 ML SYRINGE IVP PRN ×2 (11:10→12:32)
[2021-02-14] MEDS ORDERED: *HR* Dextrose 50 % in Water (Syg) 50 ML SYRINGE IVP PRN (13:05)
[2021-02-14] MEDS ORDERED: D5% in Water 1,000 ML IVC PRN (13:05)
[2021-02-14] MEDS ORDERED: Dextrose Gel 15 GM/37.5 ML TUBE PO PRN ×2 (13:05)
[2021-02-14] MEDS: Ringers Solution, Lactated 1,000 ML IVC SCH (14:14)
[2021-02-14] MEDS: Piperacillin/Tazobactam 3.375 GM in 0.9 % Sodium Chloride Mini Bag 100 ML IVPB SCH (18:27)
[2021-02-14] MEDS: Insulin LISPRO 300 UNITS/3 ML VIAL SUBQ SCH ×3 (18:28→23:30)
[2021-02-14 18:45] LABS: Total Protein,Pleural Fluid 3.2 g/dL
[2021-02-14 18:46] LABS: RBC,Pleural Fluid < 2000 RBC/mcL
[2021-02-14 20:54] LABS: Appearance of Pleural Fl Clear (Clear); Basophils,Pleural Fluid 0 %; Monocytes,Pleural Fluid 0 %
[2021-02-14 21:14] LABS: Lactate Dehydrogenase 169 Units/L (140-271); Total Protein 4.5 g/dL (6.4-8.9)
[2021-02-14 21:15] LABS: Calcium 7.5 mg/dL (8.6-10.3); Potassium 3.6 mEq/L (3.5-5.1)
[2021-02-14 22:33] LABS: C.difficile Toxin A/B Gene PCR Not detected (Not detect); Campylobacter by PCR Not detected (Not detect); Plesiomonas shigelloides PCR Not detected (Not detect); Salmonella PCR Not detected (Not detect); Vibrio PCR Not detected (Not detect)
[2021-02-14 22:34] LABS: Adenovirus F 40/41 PCR Not detected (Not detect); Astrovirus PCR Not detected (Not detect); Cryptosporidium by PCR Not detected (Not detect); Cyclospora cayetanensis PCR Not detected (Not detect); E. coli O157 by PCR Not detected (Not detect); Entamoeba histolytica PCR Not detected (Not detect); Enteroaggregative E.coli(EAEC) Not detected (Not detect); Enteropathogenic E.coli(EPEC) Not detected (Not detect); Enterotoxigenic E.coli (ETEC) Not detected (Not detect); Giardia lamblia PCR Not detected (Not detect); Norovirus GI/GII PCR Not detected (Not detect); Rotavirus A PCR Not detected (Not detect); Sapovirus PCR Not detected (Not detect); Shig/EnteroinvasiveE coli EIEC Not detected (Not detect); Shigalike tox-prod E coli STEC Not detected (Not detect); Vibrio cholerae PCR Not detected (Not detect); Yersinia enterocolitica PCR Not detected (Not detect)
[2021-02-14] MEDS: Prochlorperazine 10 MG/2 ML VIAL IVP PRN (23:31)
[2021-02-15] MEDS: niCARdipine 20 MG/200 ML MLS IVC SCH ×3 (00:23→14:14)
[2021-02-15] MEDS: Ringers Solution, Lactated 1,000 ML IVC SCH ×3 (03:27→20:23)
[2021-02-15 05:00] LABS: Hematocrit 23.2 % (35.3-44.9); Hemoglobin 7.8 g/dL (11.5-15.4); Immature Platelets 1.2 % (1.1-6.1); Mean Corpuscular HGB Conc 33.6 g/dL (31.6-35.5); Mean Corpuscular Hemoglobin 28.9 pg (28.0-33.3); Mean Corpuscular Volume 85.9 fL (83.0-100.0); Mean Platelet Volume 9.6 fL (9.4-12.4); Red Blood Count 2.7 M/mcL (3.82-4.97); Red Cell Distribution Width 14.9 % (11.5-14.5); White Blood Count 2.6 K/mcL (4.3-11.1)
[2021-02-15] MEDS: Insulin LISPRO 300 UNITS/3 ML VIAL SUBQ SCH ×6 (05:00→23:57)
[2021-02-15 05:19] LABS: Calcium 7.5 mg/dL (8.6-10.3); Potassium 3.9 mEq/L (3.5-5.1)
[2021-02-15] MEDS: Piperacillin/Tazobactam 3.375 GM in 0.9 % Sodium Chloride Mini Bag 100 ML IVPB SCH ×2 (05:21→16:16)
[2021-02-15] MEDS: Ondansetron 4 MG/2 ML VIAL IVP PRN ×4 (05:37→20:11)
[2021-02-15] MEDS: *HR* HYDROmorphone (PF) 1 MG/ML SYRINGE IVP PRN ×4 (05:38→18:22)
[2021-02-15] MEDS: 0.45 % Sodium Chloride w/KCl 20 MEQ/1,000 ML MLS IVC SCH (07:26)
[2021-02-15] MEDS: Calcium Gluconate 1gm/50mL 1 GM/50 ML BAG IVPB SCH ×2 (08:04→14:14)
[2021-02-15] MEDS: Metoclopramide 10 MG/2 ML VIAL IVP PRN (08:05)
[2021-02-15] MEDS ORDERED: 0.9 % Sodium Chloride 250 ML IVC PRN (08:16)
[2021-02-15] MEDS ORDERED: *HR* Heparin 10,000 UNIT/10 ML VIAL IV PRN (08:16)
[2021-02-15] MEDS ORDERED: *HR* Labetalol 20 MG/4 ML SYRINGE IVP SCH (10:00)
[2021-02-15 10:44] LABS: Calcium 7.8 mg/dL (8.6-10.3)
[2021-02-15] MEDS: Prochlorperazine 10 MG/2 ML VIAL IVP PRN (12:08)
[2021-02-15] MEDS ORDERED: NON-FORMULARY MEDICATION 1 EACH EACH (Insulin Glargine,Hum.Rec.Anlog [Basaglar Kwikpen U-1 SQ SCH (14:00)
[2021-02-15] MEDS ORDERED: NIFEdipine XL (24 HR) 60 MG TAB.ER.24 PO SCH (14:00)
[2021-02-15] MEDS ORDERED: 0.9 % Sodium Chloride 500 ML IVC ONE (14:58)
[2021-02-15] MEDS ORDERED: hydrALAZINE 25 MG TABLET PO SCH (15:00)
[2021-02-15] MEDS: Insulin DETEMIR 100 UNIT/ML X5UNITS SUBQ SCH ×2 (15:18→20:12)
[2021-02-15] MEDS: ALPRAZolam 1 MG TABLET PO PRN ×2 (16:25→20:11)
[2021-02-15] MEDS ORDERED: *HR* FentaNYL (PF) 100 MCG/2 ML VIAL IVP ONE (16:58)
[2021-02-15] MEDS ORDERED: *HR* Midazolam HCl 5 MG/5 ML VIAL IVP ONE ×2 (16:59)
[2021-02-15] MEDS ORDERED: *HR* FentaNYL (PF) 100 MCG/2 ML VIAL ONE (16:59)
[2021-02-15] MEDS ORDERED: Ondansetron ODT 4 MG TAB.RAPDIS SL PRN (18:00)
[2021-02-15] MEDS: *HR* Labetalol 20 MG/4 ML SYRINGE IVP PRN (18:22)
[2021-02-15] MEDS: carvediloL 25 MG TABLET PO SCH (20:11)
[2021-02-15] MEDS ORDERED: carvediloL 25 MG TABLET PO SCH (21:00)
[2021-02-16] MEDS: *HR* HYDROmorphone (PF) 1 MG/ML SYRINGE IVP PRN ×5 (00:23→20:19)
[2021-02-16] MEDS: Ondansetron 4 MG/2 ML VIAL IVP PRN ×5 (00:23→20:18)
[2021-02-16] MEDS: Insulin LISPRO 300 UNITS/3 ML VIAL SUBQ SCH ×5 (04:26→20:19)
[2021-02-16 04:27] LABS: Hemoglobin 6.4 g/dL (11.5-15.4)
[2021-02-16 04:29] LABS: Hematocrit 18.3 % (35.3-44.9); Immature Platelets 1.5 % (1.1-6.1); Mean Corpuscular Volume 85.9 fL (83.0-100.0); Mean Platelet Volume 9.2 fL (9.4-12.4); Red Blood Count 2.13 M/mcL (3.82-4.97); Red Cell Distribution Width 15.2 % (11.5-14.5); White Blood Count 2.1 K/mcL (4.3-11.1)
[2021-02-16] MEDS: *HR* Labetalol 20 MG/4 ML SYRINGE IVP PRN (04:29)
[2021-02-16] MEDS: Piperacillin/Tazobactam 3.375 GM in 0.9 % Sodium Chloride Mini Bag 100 ML IVPB SCH ×2 (06:56→16:58)
[2021-02-16] MEDS: Aspirin 81 MG TAB.CHEW PO SCH (07:40)
[2021-02-16] MEDS: NIFEdipine XL (24 HR) 60 MG TAB.ER.24 PO SCH (07:41)
[2021-02-16] MEDS: carvediloL 25 MG TABLET PO SCH ×2 (07:42→16:59)
[2021-02-16] MEDS: ALPRAZolam 1 MG TABLET PO PRN ×2 (07:42→20:27)
[2021-02-16] MEDS: Insulin DETEMIR 100 UNIT/ML X5UNITS SUBQ SCH ×2 (07:42→20:18)
[2021-02-16] MEDS ORDERED: 0.9 % Sodium Chloride 250 ML IVC SCH (07:45)
[2021-02-16] MEDS: Ringers Solution, Lactated 1,000 ML IVC SCH (13:17)
[2021-02-16 16:33] LABS: Hematocrit 22.4 % (35.3-44.9); Hemoglobin 7.8 g/dL (11.5-15.4)
[2021-02-16] MEDS ORDERED: carvediloL 25 MG TABLET PO SCH (21:00)
[2021-02-17 01:20] LABS: Fluid Source for Cholesterol PLEURAL FLUID
[2021-02-17] MEDS: Insulin LISPRO 300 UNITS/3 ML VIAL SUBQ SCH ×4 (01:57→11:39)
[2021-02-17] MEDS: *HR* HYDROmorphone (PF) 1 MG/ML SYRINGE IVP PRN ×3 (02:00→11:31)
[2021-02-17] MEDS: Ondansetron 4 MG/2 ML VIAL IVP PRN ×2 (02:00→08:19)
[2021-02-17] MEDS: Ringers Solution, Lactated 1,000 ML IVC SCH (02:07)
[2021-02-17 05:49] LABS: Mean Corpuscular Volume 85.1 fL (83.0-100.0)
[2021-02-17 05:51] LABS: Hematocrit 20.5 % (35.3-44.9); Hemoglobin 7.2 g/dL (11.5-15.4); Immature Platelets 1.6 % (1.1-6.1); Mean Corpuscular HGB Conc 35.1 g/dL (31.6-35.5); Mean Corpuscular Hemoglobin 29.9 pg (28.0-33.3); Mean Platelet Volume 9.6 fL (9.4-12.4); Red Blood Count 2.41 M/mcL (3.82-4.97); Red Cell Distribution Width 14.3 % (11.5-14.5); White Blood Count 2.1 K/mcL (4.3-11.1)
[2021-02-17] MEDS: Piperacillin/Tazobactam 3.375 GM in 0.9 % Sodium Chloride Mini Bag 100 ML IVPB SCH (05:56)
[2021-02-17 06:08] LABS: Calcium 7.9 mg/dL (8.6-10.3)
[2021-02-17 07:18] VITALS: PULSE 76; O2SAT 96
[2021-02-17] MEDS ORDERED: *HR* Heparin 10,000 UNIT/10 ML VIAL IV PRN (07:49)
[2021-02-17] MEDS ORDERED: 0.9 % Sodium Chloride 250 ML IVC PRN (07:49)
[2021-02-17] MEDS ORDERED: 0.9 % Sodium Chloride 1,000 ML PRIME SCH (08:00)
[2021-02-17] MEDS: ALPRAZolam 1 MG TABLET PO PRN (08:19)
[2021-02-17] MEDS: Insulin DETEMIR 100 UNIT/ML X5UNITS SUBQ SCH (08:38)
[2021-02-17] MEDS: Aspirin 81 MG TAB.CHEW PO SCH ×2 (10:38→13:48)
[2021-02-17] MEDS: carvediloL 25 MG TABLET PO SCH ×2 (10:38→13:47)
[2021-02-17] MEDS: NIFEdipine XL (24 HR) 60 MG TAB.ER.24 PO SCH ×2 (10:39→13:48)
[2021-02-17 12:49] LABS: Cholesterol,Body Fluid 52 mg/dL
[2021-02-17 13:21] VITALS: BP 195/107; TEMP 98.1
== END 2021-02-17 14:22 | disposition home health service (06) | DRG 637 ==
LOC: 2NNU 16:13 → EMEROOARM 16:13 → SUATTDRO 02-14 00:50 → 2NNU 02-14 01:15 → SUATTDRO 02-14 13:09 → 2ANU 02-16 23:31
PROVIDERS: ADMIT Internal Medicine; ATTEND Internal Medicine

== ENCOUNTER 2021-04-07 04:41 | Inpatient (IN) ==
[2021-04-07 05:27] LABS: Mean Corpuscular Hemoglobin 33.2 pg (28.0-33.3)
[2021-04-07 05:29] LABS: Eosinophils % 0.6 %; Hematocrit 20.1 % (35.3-44.9); Hemoglobin 6.6 g/dL (11.5-15.4); Immature Granulocytes % 0.6 % (0-4); Immature Platelets 2.2 % (1.1-6.1); Lymphocytes # 0.1 K/mcL (0.6-4.6); Lymphocytes % 7.5 %; Mean Corpuscular HGB Conc 32.8 g/dL (31.6-35.5); Monocytes # 0.1 K/mcL (0.0-1.3); Monocytes % 6.4 %; Red Blood Count 1.99 M/mcL (3.82-4.97); Red Cell Distribution Width 17.3 % (11.5-14.5); Segmented Neutrophils % 84.9 %; White Blood Count 1.7 K/mcL (4.3-11.1)
[2021-04-07 05:36] LABS: INR 1.3; Prothrombin Time 14.8 Seconds (9.4-12.1)
[2021-04-07 05:38] LABS: Activated Partial Thrombo Time 41.2 Seconds (26.0-36.0)
[2021-04-07 05:51] LABS: Alanine Aminotransferase 53 Units/L (7-52); Albumin/Globulin Ratio 1.2 (1.1-2.2); Alkaline Phosphatase 98 Units/L (34-104); Aspartate Amino Transferase 147 Units/L (13-39); BUN/Creatinine Ratio 9 (6-26); Bilirubin,Direct 0.2 mg/dL (0.0-0.2); Bilirubin,Indirect 0.3 mg/dL (0.0-1.0); Bilirubin,Total 0.5 mg/dL (0.3-1.0); Blood Urea Nitrogen 36 mg/dL (6-20); Calcium 8.5 mg/dL (8.6-10.3); Carbon Dioxide 30 mEq/L (23-29); Chloride 92 mEq/L (98-107); Globulin 2.6 g/dL (2.4-3.5); Glucose 299 mg/dL (70-105); Lactate Dehydrogenase 359 Units/L (140-271); Magnesium 2.7 mg/dL (1.6-2.6); Osmolality,Calculated 291 (280-300); Sodium 131 mEq/L (136-145); Total Protein 5.6 g/dL (6.4-8.9); Troponin I 0.03 ng/mL (< 0.04); eGFR For African Americans 14 (> 60); eGFR For Non-African Americans 12 (> 60)
[2021-04-07 06:02] LABS: Neutrophils # 1.4 K/mcL (1.6-8.9); Platelet Count 79 K/mcL (140-400)
[2021-04-07 06:04] LABS: Influenza A PCR Negative (Negative); Influenza B PCR Negative (Negative); Resp. Syncytial Virus PCR Negative (Negative)
[2021-04-07 06:06] LABS: Anisocytosis 1+ (Not Present); Platelet Estimate Decreased (Normal)
[2021-04-07 06:11] LABS: Ferritin > 1500 ng/mL (10-120)
[2021-04-07 06:13] LABS: SARS-CoV-2 by PCR (In House) Positive (Negative)
[2021-04-07] MEDS: *HR* OxyCODONE/APAP 10/325 TABLET PO PRN ×2 (09:25→18:45)
[2021-04-07] MEDS: dexAMETHasone 4 MG TABLET PO SCH (09:25)
[2021-04-07 11:30] LABS: C-Reactive Protein 40 mg/L (Less than 10)
[2021-04-07] MEDS ORDERED: 0.9 % Sodium Chloride 250 ML ONE ×2 (13:49→21:44)
[2021-04-07] MEDS ORDERED: 0.9 % Sodium Chloride 250 ML IVC PRN (17:10)
[2021-04-07] MEDS ORDERED: *HR* Heparin 10,000 UNIT/10 ML VIAL IV PRN (17:10)
[2021-04-07] MEDS ORDERED: 0.9 % Sodium Chloride 1,000 ML PRIME SCH (17:15)
[2021-04-07] MEDS: OXYCODONE MYRISTATE 9 MG PO SCH (17:39)
[2021-04-07] MEDS: Naloxone 0.4 MG/ML INJ IVP PRN ×2 (19:53→20:07)
[2021-04-07] MEDS ORDERED: *HR* Dextrose 50 % in Water (Syg) 50 ML SYRINGE IVP PRN (20:19)
[2021-04-07] MEDS ORDERED: Dextrose Gel 15 GM/37.5 ML TUBE PO PRN ×2 (20:19)
[2021-04-07] MEDS ORDERED: D5% in Water 1,000 ML IVC PRN (20:19)
[2021-04-07] MEDS: Insulin DETEMIR 100 UNIT/ML X5UNITS SUBQ SCH (21:30)
[2021-04-07] MEDS: Insulin LISPRO 300 UNITS/3 ML VIAL SUBQ SCH (21:30)
[2021-04-08 00:38] LABS: Hematocrit 27.2 % (35.3-44.9); Immature Granulocytes % 0.3 % (0-4); Lymphocytes # 0.2 K/mcL (0.6-4.6); Lymphocytes % 5.1 %; Mean Corpuscular HGB Conc 33.5 g/dL (31.6-35.5); Mean Corpuscular Hemoglobin 31.7 pg (28.0-33.3); Mean Platelet Volume 9.8 fL (9.4-12.4); Monocytes # 0.1 K/mcL (0.0-1.3); Monocytes % 2.7 %; Nucleated Red Blood Cells 0.7 /100 WBC (0); Red Blood Count 2.87 M/mcL (3.82-4.97); Red Cell Distribution Width 18.6 % (11.5-14.5); Segmented Neutrophils % 91.9 %
[2021-04-08 00:40] LABS: Hemoglobin 9.1 g/dL (11.5-15.4); Mean Corpuscular Volume 94.8 fL (83.0-100.0); Neutrophils # 2.8 K/mcL (1.6-8.9); Platelet Count 84 K/mcL (140-400)
[2021-04-08 01:00] LABS: Calcium 8.6 mg/dL (8.6-10.3); Potassium 3.7 mEq/L (3.5-5.1)
[2021-04-08] MEDS: *HR* OxyCODONE/APAP 10/325 TABLET PO PRN ×3 (01:07→22:34)
[2021-04-08 01:13] LABS: Platelet Estimate Decreased (Normal)
[2021-04-08] MEDS: niCARdipine 20 MG/200 ML MLS IVC SCH ×5 (02:36→22:11)
[2021-04-08] MEDS: OXYCODONE MYRISTATE 9 MG PO SCH ×2 (06:44→17:37)
[2021-04-08] MEDS ORDERED: Ondansetron 4 MG/2 ML VIAL IVP PRN (07:48)
[2021-04-08] MEDS: Insulin LISPRO 300 UNITS/3 ML VIAL SUBQ SCH ×4 (08:31→22:26)
[2021-04-08 10:30] LABS: Acinetobacter baumannii by PCR Not Detected (Not Detect); Candida albicans by PCR Not Detected (Not Detect); Candida glabrata by PCR Not Detected (Not Detect); Candida krusei by PCR Not Detected (Not Detect); Candida parapsilosis by PCR Not Detected (Not Detect); Candida tropicalis by PCR Not Detected (Not Detect); Enterobacter cloacae Cmplx PCR Not Detected (Not Detect); Enterobacteriaceae by PCR Not Detected (Not Detect); Enterococcus by PCR Not Detected (Not Detect); Escherichia coli by PCR Not Detected (Not Detect); Klebsiella oxytoca by PCR Not Detected (Not Detect); Proteus by PCR Not Detected (Not Detect); Pseudomonas aeruginosa by PCR Not Detected (Not Detect); Serratia marcescens by PCR Not Detected (Not Detect); Staphylococcus aureus by PCR Not Detected (Not Detect); Staphylococcus by PCR DETECTED (Not Detect); Streptococcus agalactiae(B)PCR Not Detected (Not Detect); Streptococcus by PCR Not Detected (Not Detect); Streptococcus pneumoniae PCR Not Detected (Not Detect); Streptococcus pyogenes (A) PCR Not Detected (Not Detect); mecA Methicillin-Resist Gene DETECTED (Not Detect)
[2021-04-08 10:31] LABS: Klebsiella pneumoniae by PCR Not Detected (Not Detect)
[2021-04-08] MEDS: NIFEdipine XL (24 HR) 60 MG TAB.ER.24 PO SCH ×2 (10:54→11:20)
[2021-04-08] MEDS: hydrALAZINE 25 MG TABLET PO SCH ×4 (10:54→22:22)
[2021-04-08] MEDS: dexAMETHasone 4 MG TABLET PO SCH (10:55)
[2021-04-08] MEDS: Sucralfate 1 GM TABLET PO SCH ×2 (10:56→22:19)
[2021-04-08] MEDS: Renal Vitamin 1 CAP CAPSULE PO SCH (10:56)
[2021-04-08] MEDS: carvediloL 25 MG TABLET PO SCH ×2 (10:56→17:34)
[2021-04-08] MEDS: Cholecalciferol (D-3) 1,000 UNIT (25MCG) TABLET PO SCH (10:56)
[2021-04-08] MEDS: Aspirin 81 MG TAB.CHEW PO SCH (10:56)
[2021-04-08] MEDS ORDERED: *HR* Heparin 10,000 UNIT/10 ML VIAL IV PRN (11:25)
[2021-04-08] MEDS ORDERED: 0.9 % Sodium Chloride 250 ML IVC PRN (11:25)
[2021-04-08] MEDS ORDERED: Vancomycin 1,250 MG/262.5 ML IV.SOLN IVPB ONE ×3 (13:00→22:00)
[2021-04-08] MEDS: Insulin DETEMIR 100 UNIT/ML X5UNITS SUBQ SCH ×2 (13:11→22:25)
[2021-04-08] MEDS: *HR* Heparin 5,000 UNIT/ML VIAL SQ SCH (17:34)
[2021-04-08] MEDS: Clotrimazole 1% CRM 15 GM TUBE TP SCH (22:16)
[2021-04-08] MEDS: Ondansetron 4 MG/2 ML VIAL IVP PRN (22:17)
[2021-04-09] MEDS: niCARdipine 20 MG/200 ML MLS IVC SCH ×3 (00:50→11:12)
[2021-04-09 04:37] LABS: Red Cell Distribution Width 19.9 % (11.5-14.5)
[2021-04-09 04:39] LABS: Hematocrit 25.3 % (35.3-44.9); Hemoglobin 8.2 g/dL (11.5-15.4); Immature Granulocytes % 0.6 % (0-4); Immature Platelets 2.3 % (1.1-6.1); Lymphocytes # 0.2 K/mcL (0.6-4.6); Lymphocytes % 5.4 %; Mean Corpuscular HGB Conc 32.4 g/dL (31.6-35.5); Mean Corpuscular Hemoglobin 31.3 pg (28.0-33.3); Mean Corpuscular Volume 96.6 fL (83.0-100.0); Mean Platelet Volume 10.4 fL (9.4-12.4); Monocytes # 0.2 K/mcL (0.0-1.3); Monocytes % 4.8 %; Neutrophils # 2.8 K/mcL (1.6-8.9); Red Blood Count 2.62 M/mcL (3.82-4.97); Segmented Neutrophils % 89.2 %; White Blood Count 3.1 K/mcL (4.3-11.1)
[2021-04-09 04:44] LABS: Platelet Count 78 K/mcL (140-400)
[2021-04-09 04:57] LABS: Calcium 7.8 mg/dL (8.6-10.3); Potassium 4.9 mEq/L (3.5-5.1)
[2021-04-09] MEDS: *HR* Heparin 5,000 UNIT/ML VIAL SQ SCH ×2 (05:41→17:13)
[2021-04-09] MEDS: OXYCODONE MYRISTATE 9 MG PO SCH ×2 (05:41→17:08)
[2021-04-09] MEDS: *HR* OxyCODONE/APAP 10/325 TABLET PO PRN ×3 (05:54→21:13)
[2021-04-09] MEDS: Ondansetron 4 MG/2 ML VIAL IVP PRN ×2 (08:48→17:11)
[2021-04-09] MEDS: Insulin LISPRO 300 UNITS/3 ML VIAL SUBQ SCH ×4 (08:49→21:15)
[2021-04-09] MEDS: Aspirin 81 MG TAB.CHEW PO SCH (10:42)
[2021-04-09] MEDS: Renal Vitamin 1 CAP CAPSULE PO SCH (10:42)
[2021-04-09] MEDS: NIFEdipine XL (24 HR) 60 MG TAB.ER.24 PO SCH (10:42)
[2021-04-09] MEDS: hydrALAZINE 25 MG TABLET PO SCH ×3 (10:42→21:13)
[2021-04-09] MEDS: carvediloL 25 MG TABLET PO SCH ×2 (10:42→17:14)
[2021-04-09] MEDS: dexAMETHasone 4 MG TABLET PO SCH (10:42)
[2021-04-09] MEDS: Cholecalciferol (D-3) 1,000 UNIT (25MCG) TABLET PO SCH (10:42)
[2021-04-09] MEDS: Sucralfate 1 GM TABLET PO SCH ×2 (11:07→17:13)
[2021-04-09] MEDS: Insulin DETEMIR 100 UNIT/ML X5UNITS SUBQ SCH ×2 (11:28→21:14)
[2021-04-09] MEDS: Clotrimazole 1% CRM 15 GM TUBE TP SCH ×2 (12:58→21:14)
[2021-04-09] MEDS: ALPRAZolam 1 MG TABLET PO PRN (13:23)
[2021-04-10] MEDS: OXYCODONE MYRISTATE 9 MG PO SCH ×2 (02:14→18:50)
[2021-04-10] MEDS: *HR* Heparin 5,000 UNIT/ML VIAL SQ SCH ×2 (02:31→18:50)
[2021-04-10 02:56] LABS: Mean Platelet Volume 10.1 fL (9.4-12.4)
[2021-04-10 02:58] LABS: Hematocrit 26.3 % (35.3-44.9); Hemoglobin 8.7 g/dL (11.5-15.4); Immature Platelets 2.6 % (1.1-6.1); Mean Corpuscular HGB Conc 33.1 g/dL (31.6-35.5); Mean Corpuscular Hemoglobin 31.8 pg (28.0-33.3); Red Blood Count 2.74 M/mcL (3.82-4.97); Red Cell Distribution Width 19.3 % (11.5-14.5); White Blood Count 3.2 K/mcL (4.3-11.1)
[2021-04-10 03:27] LABS: Potassium 5.3 mEq/L (3.5-5.1)
[2021-04-10] MEDS ORDERED: Ergocalciferol (VIT D2) 50,000 UNIT (1.25MG) CAP PO SCH (07:34)
[2021-04-10] MEDS ORDERED: Perflutren Lipid Microsphere 1.3 ML in 0.9 % Sodium Chloride 8.7 ML IVP PRN (07:47)
[2021-04-10] MEDS ORDERED: 0.9 % Sodium Chloride 250 ML IVC PRN (08:08)
[2021-04-10] MEDS ORDERED: *HR* Heparin 10,000 UNIT/10 ML VIAL IV PRN (08:08)
[2021-04-10] MEDS: Aspirin 81 MG TAB.CHEW PO SCH (08:49)
[2021-04-10] MEDS: carvediloL 25 MG TABLET PO SCH ×2 (08:50→16:32)
[2021-04-10] MEDS: *HR* OxyCODONE/APAP 10/325 TABLET PO PRN ×3 (08:51→21:51)
[2021-04-10] MEDS: Cholecalciferol (D-3) 1,000 UNIT (25MCG) TABLET PO SCH (08:52)
[2021-04-10] MEDS: hydrALAZINE 25 MG TABLET PO SCH ×3 (08:52→21:46)
[2021-04-10] MEDS: Sucralfate 1 GM TABLET PO SCH ×2 (08:52→21:17)
[2021-04-10] MEDS: NIFEdipine XL (24 HR) 60 MG TAB.ER.24 PO SCH (08:52)
[2021-04-10] MEDS: dexAMETHasone 4 MG TABLET PO SCH (08:52)
[2021-04-10] MEDS: Renal Vitamin 1 CAP CAPSULE PO SCH (08:53)
[2021-04-10] MEDS: Insulin DETEMIR 100 UNIT/ML X5UNITS SUBQ SCH ×2 (08:54→21:47)
[2021-04-10] MEDS: Insulin LISPRO 300 UNITS/3 ML VIAL SUBQ SCH ×4 (08:54→21:47)
[2021-04-10] MEDS: Clotrimazole 1% CRM 15 GM TUBE TP SCH ×2 (08:55→21:52)
[2021-04-10] MEDS ORDERED: Vasopressin 40 UNIT in D5% in Water 100 ML IV SCH (13:00)
[2021-04-10] MEDS: ALPRAZolam 1 MG TABLET PO PRN ×2 (16:32→23:34)
[2021-04-11] MEDS: OXYCODONE MYRISTATE 9 MG PO SCH (05:20)
[2021-04-11] MEDS: *HR* Heparin 5,000 UNIT/ML VIAL SQ SCH ×2 (06:05→18:04)
[2021-04-11] MEDS: *HR* OxyCODONE/APAP 10/325 TABLET PO PRN ×3 (06:05→20:28)
[2021-04-11 07:09] LABS: Mean Corpuscular Hemoglobin 31.8 pg (28.0-33.3); Red Blood Count 2.83 M/mcL (3.82-4.97)
[2021-04-11 07:11] LABS: Hematocrit 27.7 % (35.3-44.9); Immature Granulocytes % 0.8 % (0-4); Immature Platelets 2.6 % (1.1-6.1); Lymphocytes # 0.3 K/mcL (0.6-4.6); Lymphocytes % 7.8 %; Mean Corpuscular HGB Conc 32.5 g/dL (31.6-35.5); Mean Corpuscular Volume 97.9 fL (83.0-100.0); Mean Platelet Volume 9.7 fL (9.4-12.4); Monocytes # 0.2 K/mcL (0.0-1.3); Monocytes % 5.8 %; Neutrophils # 3.1 K/mcL (1.6-8.9); Nucleated Red Blood Cells 0.6 /100 WBC (0); Red Cell Distribution Width 19.1 % (11.5-14.5); Segmented Neutrophils % 85.6 %; White Blood Count 3.6 K/mcL (4.3-11.1)
[2021-04-11 07:12] LABS: Platelet Count 80 K/mcL (140-400)
[2021-04-11 07:24] LABS: Calcium 7.6 mg/dL (8.6-10.3); Magnesium 2.4 mg/dL (1.6-2.6); Phosphorous 3.8 mg/dL (2.7-4.5); Potassium 4.1 mEq/L (3.5-5.1)
[2021-04-11] MEDS: Cholecalciferol (D-3) 1,000 UNIT (25MCG) TABLET PO SCH (09:01)
[2021-04-11] MEDS: NIFEdipine XL (24 HR) 60 MG TAB.ER.24 PO SCH (09:01)
[2021-04-11] MEDS: hydrALAZINE 25 MG TABLET PO SCH ×3 (09:01→20:24)
[2021-04-11] MEDS: Sucralfate 1 GM TABLET PO SCH ×2 (09:01→18:04)
[2021-04-11] MEDS: dexAMETHasone 4 MG TABLET PO SCH (09:01)
[2021-04-11] MEDS: carvediloL 25 MG TABLET PO SCH ×2 (09:02→18:03)
[2021-04-11] MEDS: Aspirin 81 MG TAB.CHEW PO SCH (09:02)
[2021-04-11] MEDS: Renal Vitamin 1 CAP CAPSULE PO SCH (09:02)
[2021-04-11] MEDS: Insulin DETEMIR 100 UNIT/ML X5UNITS SUBQ SCH ×2 (09:03→20:27)
[2021-04-11] MEDS: Insulin LISPRO 300 UNITS/3 ML VIAL SUBQ SCH ×4 (09:03→20:27)
[2021-04-11] MEDS: Clotrimazole 1% CRM 15 GM TUBE TP SCH ×2 (09:04→21:26)
[2021-04-11] MEDS: Ondansetron 4 MG/2 ML VIAL IVP PRN (09:12)
[2021-04-11] MEDS ORDERED: Perflutren Lipid Microsphere 1.3 ML in 0.9 % Sodium Chloride 8.7 ML IVP PRN (10:44)
[2021-04-11] MEDS: ALPRAZolam 1 MG TABLET PO PRN ×2 (12:51→22:43)
[2021-04-11] MEDS: Melatonin 3 MG TABLET PO PRN (20:25)
[2021-04-11] MEDS: Nystatin POWDER 30 GM BOTTLE TP SCH (21:26)
[2021-04-11] MEDS: Benzonatate 100 MG CAPSULE PO PRN (22:43)
[2021-04-12] MEDS: *HR* OxyCODONE/APAP 10/325 TABLET PO PRN ×5 (00:23→19:07)
[2021-04-12] MEDS: *HR* Heparin 5,000 UNIT/ML VIAL SQ SCH ×2 (04:54→18:59)
[2021-04-12 06:06] LABS: Hemoglobin 9.2 g/dL (11.5-15.4); Mean Corpuscular Hemoglobin 32.5 pg (28.0-33.3); Red Blood Count 2.83 M/mcL (3.82-4.97)
[2021-04-12 06:08] LABS: Basophils % 0.3 %; Hematocrit 27.1 % (35.3-44.9); Immature Granulocytes % 1.3 % (0-4); Immature Platelets 2.2 % (1.1-6.1); Lymphocytes # 0.2 K/mcL (0.6-4.6); Lymphocytes % 5.6 %; Mean Corpuscular HGB Conc 33.9 g/dL (31.6-35.5); Mean Corpuscular Volume 95.8 fL (83.0-100.0); Mean Platelet Volume 10.1 fL (9.4-12.4); Monocytes # 0.2 K/mcL (0.0-1.3); Neutrophils # 3.3 K/mcL (1.6-8.9); Platelet Count 72 K/mcL (140-400); Segmented Neutrophils % 88.8 %; White Blood Count 3.7 K/mcL (4.3-11.1)
[2021-04-12 06:16] LABS: Calcium 7.8 mg/dL (8.6-10.3); Magnesium 2.4 mg/dL (1.6-2.6); Phosphorous 4.3 mg/dL (2.7-4.5); Potassium 5.3 mEq/L (3.5-5.1)
[2021-04-12] MEDS ORDERED: *HR* Heparin 10,000 UNIT/10 ML VIAL IV PRN (08:31)
[2021-04-12] MEDS ORDERED: 0.9 % Sodium Chloride 250 ML IVC PRN (08:31)
[2021-04-12] MEDS: Renal Vitamin 1 CAP CAPSULE PO SCH (09:19)
[2021-04-12] MEDS: carvediloL 25 MG TABLET PO SCH ×2 (09:20→18:59)
[2021-04-12] MEDS: NIFEdipine XL (24 HR) 30 MG TAB.ER.24 PO SCH (09:20)
[2021-04-12] MEDS: Benzonatate 100 MG CAPSULE PO PRN (09:21)
[2021-04-12] MEDS: Aspirin 81 MG TAB.CHEW PO SCH (09:21)
[2021-04-12] MEDS: ALPRAZolam 1 MG TABLET PO PRN ×2 (09:21→21:41)
[2021-04-12] MEDS: dexAMETHasone 4 MG TABLET PO SCH (09:21)
[2021-04-12] MEDS: Sucralfate 1 GM TABLET PO SCH ×2 (09:24→18:58)
[2021-04-12] MEDS: hydrALAZINE 25 MG TABLET PO SCH ×3 (09:26→21:40)
[2021-04-12] MEDS: Cholecalciferol (D-3) 1,000 UNIT (25MCG) TABLET PO SCH ×2 (09:32→09:33)
[2021-04-12] MEDS: Insulin DETEMIR 100 UNIT/ML X5UNITS SUBQ SCH ×2 (09:44→21:42)
[2021-04-12] MEDS: Insulin LISPRO 300 UNITS/3 ML VIAL SUBQ SCH ×4 (09:44→23:02)
[2021-04-12] MEDS: Clotrimazole 1% CRM 15 GM TUBE TP SCH ×2 (09:45→21:42)
[2021-04-12] MEDS: Nystatin POWDER 30 GM BOTTLE TP SCH ×2 (09:45→21:42)
[2021-04-12] MEDS ORDERED: Vancomycin 500 MG in 0.9 % Sodium Chloride Mini Bag 100 ML IVPB ONE (18:00)
[2021-04-12] MEDS: Melatonin 3 MG TABLET PO PRN (21:41)
[2021-04-13] MEDS: *HR* OxyCODONE/APAP 10/325 TABLET PO PRN ×2 (04:39→11:12)
[2021-04-13 05:02] LABS: Calcium 7.6 mg/dL (8.6-10.3); Potassium 4.8 mEq/L (3.5-5.1)
[2021-04-13] MEDS: *HR* Heparin 5,000 UNIT/ML VIAL SQ SCH (06:25)
[2021-04-13] MEDS: ALPRAZolam 1 MG TABLET PO PRN (06:25)
[2021-04-13 07:37] VITALS: PULSE 78; TEMP 98.1
[2021-04-13] MEDS: Aspirin 81 MG TAB.CHEW PO SCH (08:40)
[2021-04-13] MEDS: NIFEdipine XL (24 HR) 30 MG TAB.ER.24 PO SCH (08:40)
[2021-04-13] MEDS: Cholecalciferol (D-3) 1,000 UNIT (25MCG) TABLET PO SCH (08:40)
[2021-04-13] MEDS: Sucralfate 1 GM TABLET PO SCH (08:40)
[2021-04-13] MEDS: Renal Vitamin 1 CAP CAPSULE PO SCH (08:41)
[2021-04-13] MEDS: dexAMETHasone 4 MG TABLET PO SCH (08:41)
[2021-04-13] MEDS: carvediloL 25 MG TABLET PO SCH (08:41)
[2021-04-13] MEDS: hydrALAZINE 25 MG TABLET PO SCH (08:41)
[2021-04-13] MEDS: Insulin LISPRO 300 UNITS/3 ML VIAL SUBQ SCH ×2 (08:43→11:13)
[2021-04-13] MEDS: Insulin DETEMIR 100 UNIT/ML X5UNITS SUBQ SCH (08:43)
[2021-04-13] MEDS: Ondansetron 4 MG/2 ML VIAL IVP PRN (08:56)
[2021-04-13] MEDS: Clotrimazole 1% CRM 15 GM TUBE TP SCH (09:54)
[2021-04-13] MEDS: Nystatin POWDER 30 GM BOTTLE TP SCH (09:54)
[2021-04-13 11:03] VITALS: O2SAT 98
[2021-04-13] MEDS: Benzonatate 100 MG CAPSULE PO PRN (11:17)
[2021-04-13 13:41] VITALS: BP 173/80
== END 2021-04-13 13:51 | disposition home or self-care (01) | DRG 314 ==
LOC: 2NENU 04:41 → EMEROOARM 04:41 → 2NENU 12:09 → 2NNU 04-08 02:31 → SUATTDRO 04-09 14:30 → 2ANU 04-10 20:48 → 3NENU 04-11 21:15
PROVIDERS: ADMIT Student in an Organized Health Care Education/Training Program; ATTEND Internal Medicine

== ENCOUNTER 2021-04-19 13:43 | Inpatient (IN) ==
[2021-04-19] MEDS ORDERED: 0.9 % Sodium Chloride 1,000 ML IVC ONE (14:52)
[2021-04-19 15:44] LABS: Eosinophils % 0.3 %
[2021-04-19 15:46] LABS: Hematocrit 23.7 % (35.3-44.9); Hemoglobin 7.9 g/dL (11.5-15.4); Immature Granulocytes % 0.5 % (0-4); Immature Platelets 4.3 % (1.1-6.1); Lymphocytes # 0.1 K/mcL (0.6-4.6); Lymphocytes % 2.6 %; Mean Corpuscular HGB Conc 33.3 g/dL (31.6-35.5); Mean Corpuscular Hemoglobin 32.2 pg (28.0-33.3); Mean Corpuscular Volume 96.7 fL (83.0-100.0); Mean Platelet Volume 10.5 fL (9.4-12.4); Monocytes # 0.2 K/mcL (0.0-1.3); Neutrophils # 3.5 K/mcL (1.6-8.9); Red Blood Count 2.45 M/mcL (3.82-4.97); Red Cell Distribution Width 17.1 % (11.5-14.5); Segmented Neutrophils % 92.6 %; White Blood Count 3.8 K/mcL (4.3-11.1)
[2021-04-19 15:48] LABS: VBG HCO3 28 mEq/L (21-27); VBG PCO2 55 mmHg (41-51); VBG PH 7.31 pH Units (7.32-7.42); VBG PO2 65 mmHg (25-50)
[2021-04-19 15:53] LABS: INR 1.1; Prothrombin Time 12.6 Seconds (9.4-12.1)
[2021-04-19 15:55] LABS: Activated Partial Thrombo Time 34.6 Seconds (26.0-36.0)
[2021-04-19 16:15] LABS: Platelet Count 47 K/mcL (140-400)
[2021-04-19 16:16] LABS: Alanine Aminotransferase 95 Units/L (7-52); Albumin 3.2 g/dL (3.5-5.7); Alkaline Phosphatase 172 Units/L (34-104); Aspartate Amino Transferase 111 Units/L (13-39); BUN/Creatinine Ratio 11 (6-26); Bilirubin,Direct 0.2 mg/dL (0.0-0.2); Bilirubin,Indirect 0.3 mg/dL (0.0-1.0); Bilirubin,Total 0.5 mg/dL (0.3-1.0); Blood Urea Nitrogen 44 mg/dL (6-20); Calcium 8.5 mg/dL (8.6-10.3); Carbon Dioxide 26 mEq/L (23-29); Chloride 89 mEq/L (98-107); Ethanol < 10 mg/dL (Less than 10); Globulin 3.1 g/dL (2.4-3.5); Glucose 706 mg/dL (70-105); Osmolality,Calculated 303 (280-300); Potassium 4.2 mEq/L (3.5-5.1); Sodium 124 mEq/L (136-145); Total Protein 6.3 g/dL (6.4-8.9); Troponin I < 0.03 ng/mL (< 0.04); eGFR For African Americans 15 (> 60); eGFR For Non-African Americans 12 (> 60)
[2021-04-19 16:17] LABS: Estimated Average Glucose 114 mg/dl; Hemoglobin A1C 5.6 %; Platelet Estimate Decreased (Normal)
[2021-04-19 16:33] LABS: Thyroid Stimulating Hormone 1.881 mcIU/mL (0.340-5.600)
[2021-04-19] MEDS ORDERED: *HR* Dextrose 50 % in Water (Syg) 50 ML SYRINGE IVP PRN ×2 (16:50→17:57)
[2021-04-19] MEDS ORDERED: Piperacillin/Tazobactam 3.375 GM in 0.9 % Sodium Chloride Mini Bag 100 ML IVPB ONE (17:05)
[2021-04-19] MEDS ORDERED: Insulin Regular, Human 100 UNIT/ML IV PRN (17:57)
[2021-04-19] MEDS ORDERED: Naloxone 0.4 MG/ML INJ IVP PRN (18:04)
[2021-04-19 18:16] LABS: Vancomycin,Random 17 mcg/mL
[2021-04-19] MEDS: carvediloL 25 MG TABLET PO SCH (21:57)
[2021-04-19] MEDS: hydrALAZINE 25 MG TABLET PO SCH (21:58)
[2021-04-19 22:39] LABS: Albumin 3.1 g/dL (3.5-5.7); Calcium 8.4 mg/dL (8.6-10.3); Magnesium 2.1 mg/dL (1.6-2.6); Phosphorous 5.4 mg/dL (2.7-4.5); Potassium 4.1 mEq/L (3.5-5.1)
[2021-04-20 02:59] LABS: Red Cell Distribution Width 17.2 % (11.5-14.5)
[2021-04-20 03:01] LABS: Eosinophils % 0.5 %; Hematocrit 21.1 % (35.3-44.9); Hemoglobin 7.2 g/dL (11.5-15.4); Immature Granulocytes % 0.5 % (0-4); Immature Platelets 2.5 % (1.1-6.1); Lymphocytes # 0.3 K/mcL (0.6-4.6); Lymphocytes % 7.7 %; Mean Corpuscular HGB Conc 34.1 g/dL (31.6-35.5); Mean Corpuscular Volume 96.8 fL (83.0-100.0); Mean Platelet Volume 10.6 fL (9.4-12.4); Monocytes # 0.1 K/mcL (0.0-1.3); Monocytes % 3.6 %; Neutrophils # 3.2 K/mcL (1.6-8.9); Red Blood Count 2.18 M/mcL (3.82-4.97); Segmented Neutrophils % 87.7 %; White Blood Count 3.7 K/mcL (4.3-11.1)
[2021-04-20 03:02] LABS: Platelet Count 46 K/mcL (140-400)
[2021-04-20 03:21] LABS: Albumin/Globulin Ratio 1.1 (1.1-2.2); Bilirubin,Total 0.4 mg/dL (0.3-1.0); Calcium 8.2 mg/dL (8.6-10.3); Globulin 2.7 g/dL (2.4-3.5); Phosphorous 5.1 mg/dL (2.7-4.5); Potassium 3.9 mEq/L (3.5-5.1); Total Protein 5.7 g/dL (6.4-8.9)
[2021-04-20] MEDS: *HR* Heparin 5,000 UNIT/ML VIAL SQ SCH ×2 (05:42→17:53)
[2021-04-20] MEDS ORDERED: Piperacillin/Tazobactam 3.375 GM in 0.9 % Sodium Chloride Mini Bag 100 ML IVPB SCH (08:00)
[2021-04-20 09:09] LABS: Albumin 2.9 g/dL (3.5-5.7); Calcium 8.2 mg/dL (8.6-10.3); Phosphorous 5.5 mg/dL (2.7-4.5); Potassium 4.5 mEq/L (3.5-5.1)
[2021-04-20] MEDS: hydrALAZINE 25 MG TABLET PO SCH ×2 (09:24→17:38)
[2021-04-20] MEDS: NIFEdipine XL (24 HR) 30 MG TAB.ER.24 PO SCH (09:24)
[2021-04-20] MEDS: Aspirin 81 MG TAB.CHEW PO SCH (09:24)
[2021-04-20] MEDS: carvediloL 25 MG TABLET PO SCH ×2 (09:24→17:53)
[2021-04-20] MEDS: ALPRAZolam 1 MG TABLET PO PRN (10:16)
[2021-04-20] MEDS: Ondansetron 4 MG/2 ML VIAL IVP PRN ×2 (10:17→17:56)
[2021-04-20 11:06] LABS: Albumin 2.9 g/dL (3.5-5.7); Calcium 8.3 mg/dL (8.6-10.3); Phosphorous 5.4 mg/dL (2.7-4.5); Potassium 4.5 mEq/L (3.5-5.1)
[2021-04-20] MEDS: *HR* OxyCODONE/APAP 10/325 TABLET PO PRN ×3 (11:34→22:08)
[2021-04-20] MEDS ORDERED: *HR* Heparin 10,000 UNIT/10 ML VIAL IV PRN ×2 (11:53→12:09)
[2021-04-20] MEDS ORDERED: 0.9 % Sodium Chloride 250 ML IVC PRN (11:53)
[2021-04-20] MEDS ORDERED: 0.9 % Sodium Chloride 1,000 ML PRIME SCH (12:00)
[2021-04-20] MEDS: Insulin DETEMIR 100 UNIT/ML X5UNITS SUBQ SCH ×2 (12:30→22:08)
[2021-04-20] MEDS ORDERED: Dextrose Gel 15 GM/37.5 ML TUBE PO PRN (13:05)
[2021-04-20 16:00] LABS: Albumin 2.8 g/dL (3.5-5.7); Calcium 8.1 mg/dL (8.6-10.3); Phosphorous 5.6 mg/dL (2.7-4.5); Potassium 4.6 mEq/L (3.5-5.1)
[2021-04-20] MEDS: Calcium Acetate 667 MG CAPSULE PO SCH ×2 (17:39→17:50)
[2021-04-20] MEDS: Sucralfate 1 GM TABLET PO SCH (17:50)
[2021-04-20] MEDS: Insulin LISPRO 300 UNITS/3 ML VIAL SUBQ SCH (17:51)
[2021-04-20] MEDS: OXYCODONE MYRISTATE 9 MG PO SCH (17:53)
[2021-04-20 20:45] LABS: Albumin 2.8 g/dL (3.5-5.7); Calcium 8.1 mg/dL (8.6-10.3); Phosphorous 4.8 mg/dL (2.7-4.5); Potassium 4.3 mEq/L (3.5-5.1)
[2021-04-20 22:03] LABS: Albumin 2.9 g/dL (3.5-5.7); Calcium 8.1 mg/dL (8.6-10.3); Phosphorous 2.9 mg/dL (2.7-4.5); Potassium 3.9 mEq/L (3.5-5.1)
[2021-04-20] MEDS: Piperacillin/Tazobactam 3.375 GM in 0.9 % Sodium Chloride Mini Bag 100 ML IVPB SCH (22:08)
[2021-04-20] MEDS: Melatonin 3 MG TABLET PO PRN (22:08)
[2021-04-21] MEDS: ALPRAZolam 1 MG TABLET PO PRN ×3 (00:25→20:35)
[2021-04-21] MEDS: hydrALAZINE 25 MG TABLET PO SCH ×4 (00:25→20:35)
[2021-04-21] MEDS: *HR* OxyCODONE/APAP 10/325 TABLET PO PRN ×3 (05:39→20:52)
[2021-04-21] MEDS: *HR* Heparin 5,000 UNIT/ML VIAL SQ SCH ×2 (05:39→18:15)
[2021-04-21] MEDS: OXYCODONE MYRISTATE 9 MG PO SCH ×2 (05:39→18:15)
[2021-04-21] MEDS: Insulin LISPRO 300 UNITS/3 ML VIAL SUBQ SCH ×3 (08:30→19:31)
[2021-04-21] MEDS: NIFEdipine XL (24 HR) 30 MG TAB.ER.24 PO SCH (10:18)
[2021-04-21] MEDS: predniSONE 5 MG TABLET PO SCH (10:18)
[2021-04-21] MEDS: carvediloL 25 MG TABLET PO SCH ×2 (10:18→18:15)
[2021-04-21] MEDS: Aspirin 81 MG TAB.CHEW PO SCH (10:18)
[2021-04-21] MEDS: Sucralfate 1 GM TABLET PO SCH ×2 (10:18→18:15)
[2021-04-21] MEDS: Renal Vitamin 1 CAP CAPSULE PO SCH (10:18)
[2021-04-21] MEDS: Calcium Acetate 667 MG CAPSULE PO SCH ×3 (10:18→19:45)
[2021-04-21] MEDS: Cholecalciferol (D-3) 1,000 UNIT (25MCG) TABLET PO SCH (10:18)
[2021-04-21] MEDS: Insulin DETEMIR 100 UNIT/ML X5UNITS SUBQ SCH ×2 (10:19→20:53)
[2021-04-21] MEDS: Piperacillin/Tazobactam 3.375 GM in 0.9 % Sodium Chloride Mini Bag 100 ML IVPB SCH ×2 (10:22→20:36)
[2021-04-21 16:09] LABS: Hemoglobin 7.6 g/dL (11.5-15.4); Immature Granulocytes % 0.4 % (0-4)
[2021-04-21 16:11] LABS: Eosinophils % 1.1 %; Hematocrit 22.8 % (35.3-44.9); Immature Platelets 2.9 % (1.1-6.1); Lymphocytes # 0.2 K/mcL (0.6-4.6); Lymphocytes % 8.6 %; Mean Corpuscular HGB Conc 33.3 g/dL (31.6-35.5); Mean Corpuscular Hemoglobin 32.5 pg (28.0-33.3); Mean Corpuscular Volume 97.4 fL (83.0-100.0); Mean Platelet Volume 9.3 fL (9.4-12.4); Monocytes # 0.1 K/mcL (0.0-1.3); Monocytes % 4.9 %; Neutrophils # 2.3 K/mcL (1.6-8.9); Red Blood Count 2.34 M/mcL (3.82-4.97); White Blood Count 2.7 K/mcL (4.3-11.1)
[2021-04-21 16:13] LABS: Platelet Count 60 K/mcL (140-400)
[2021-04-21 19:33] LABS: Calcium 8.6 mg/dL (8.6-10.3); Potassium 6.2 mEq/L (3.5-5.1)
[2021-04-22] MEDS: *HR* OxyCODONE/APAP 10/325 TABLET PO PRN ×4 (01:06→21:14)
[2021-04-22] MEDS: *HR* Heparin 5,000 UNIT/ML VIAL SQ SCH ×2 (05:03→17:53)
[2021-04-22] MEDS: predniSONE 5 MG TABLET PO SCH (07:27)
[2021-04-22] MEDS: Cholecalciferol (D-3) 1,000 UNIT (25MCG) TABLET PO SCH (07:27)
[2021-04-22] MEDS: Calcium Acetate 667 MG CAPSULE PO SCH ×3 (07:27→17:53)
[2021-04-22] MEDS: hydrALAZINE 25 MG TABLET PO SCH ×3 (07:27→20:43)
[2021-04-22] MEDS: Sucralfate 1 GM TABLET PO SCH ×2 (07:27→17:57)
[2021-04-22] MEDS: carvediloL 25 MG TABLET PO SCH ×2 (07:27→17:52)
[2021-04-22] MEDS: Aspirin 81 MG TAB.CHEW PO SCH (07:27)
[2021-04-22] MEDS: Insulin LISPRO 300 UNITS/3 ML VIAL SUBQ SCH ×3 (07:28→17:50)
[2021-04-22] MEDS: Piperacillin/Tazobactam 3.375 GM in 0.9 % Sodium Chloride Mini Bag 100 ML IVPB SCH ×2 (07:28→20:44)
[2021-04-22] MEDS: Insulin DETEMIR 100 UNIT/ML X5UNITS SUBQ SCH ×2 (07:28→20:49)
[2021-04-22] MEDS: OXYCODONE MYRISTATE 9 MG PO SCH ×2 (07:30→18:54)
[2021-04-22] MEDS: Renal Vitamin 1 CAP CAPSULE PO SCH (07:35)
[2021-04-22] MEDS: NIFEdipine XL (24 HR) 30 MG TAB.ER.24 PO SCH (07:35)
[2021-04-22] MEDS: ALPRAZolam 1 MG TABLET PO PRN ×3 (07:40→20:43)
[2021-04-22] MEDS ORDERED: 0.9 % Sodium Chloride 250 ML IVC PRN (08:27)
[2021-04-22] MEDS ORDERED: *HR* Heparin 10,000 UNIT/10 ML VIAL IV PRN (08:27)
[2021-04-22 10:39] LABS: Mean Corpuscular Volume 95.2 fL (83.0-100.0); Mean Platelet Volume 10.1 fL (9.4-12.4)
[2021-04-22 10:40] LABS: Hemoglobin 7.2 g/dL (11.5-15.4); Immature Platelets 2.8 % (1.1-6.1); Mean Corpuscular HGB Conc 32.7 g/dL (31.6-35.5); Mean Corpuscular Hemoglobin 31.2 pg (28.0-33.3); Red Blood Count 2.31 M/mcL (3.82-4.97); Red Cell Distribution Width 16.5 % (11.5-14.5); White Blood Count 2.5 K/mcL (4.3-11.1)
[2021-04-22 10:56] LABS: Calcium 8.6 mg/dL (8.6-10.3); Potassium 4.3 mEq/L (3.5-5.1)
[2021-04-22] MEDS: Ondansetron 4 MG/2 ML VIAL IVP PRN (18:54)
[2021-04-22] MEDS ORDERED: Vancomycin 500 MG in 0.9 % Sodium Chloride Mini Bag 100 ML IVPB ONE (21:00)
[2021-04-23] MEDS: *HR* OxyCODONE/APAP 10/325 TABLET PO PRN ×3 (01:10→19:54)
[2021-04-23] MEDS: Ondansetron 4 MG/2 ML VIAL IVP PRN ×2 (04:11→16:28)
[2021-04-23] MEDS: *HR* Heparin 5,000 UNIT/ML VIAL SQ SCH ×2 (06:30→16:29)
[2021-04-23] MEDS: Aspirin 81 MG TAB.CHEW PO SCH (08:08)
[2021-04-23] MEDS: predniSONE 5 MG TABLET PO SCH (08:08)
[2021-04-23] MEDS: Cholecalciferol (D-3) 1,000 UNIT (25MCG) TABLET PO SCH (08:08)
[2021-04-23] MEDS: NIFEdipine XL (24 HR) 30 MG TAB.ER.24 PO SCH (08:08)
[2021-04-23] MEDS: carvediloL 25 MG TABLET PO SCH ×2 (08:09→15:45)
[2021-04-23] MEDS: Renal Vitamin 1 CAP CAPSULE PO SCH (08:09)
[2021-04-23] MEDS: hydrALAZINE 25 MG TABLET PO SCH ×3 (08:09→19:54)
[2021-04-23] MEDS: Piperacillin/Tazobactam 3.375 GM in 0.9 % Sodium Chloride Mini Bag 100 ML IVPB SCH ×2 (08:11→19:54)
[2021-04-23] MEDS: Sucralfate 1 GM TABLET PO SCH ×2 (08:19→15:45)
[2021-04-23] MEDS: Insulin LISPRO 300 UNITS/3 ML VIAL SUBQ SCH ×3 (08:24→16:30)
[2021-04-23] MEDS: ALPRAZolam 1 MG TABLET PO PRN ×2 (08:36→15:45)
[2021-04-23] MEDS: Insulin DETEMIR 100 UNIT/ML X5UNITS SUBQ SCH ×2 (08:36→20:03)
[2021-04-23] MEDS: Calcium Acetate 667 MG CAPSULE PO SCH ×3 (08:36→15:45)
[2021-04-23 09:11] LABS: Basophils % 0.4 %; Immature Granulocytes % 0.4 % (0-4); Red Cell Distribution Width 16.2 % (11.5-14.5); White Blood Count 2.4 K/mcL (4.3-11.1)
[2021-04-23] MEDS: OXYCODONE MYRISTATE 9 MG PO SCH ×2 (09:11→18:49)
[2021-04-23 09:13] LABS: Eosinophils # 0.1 K/mcL (0.0-0.6); Eosinophils % 2.5 %; Hemoglobin 7.5 g/dL (11.5-15.4); Immature Platelets 2.7 % (1.1-6.1); Lymphocytes # 0.4 K/mcL (0.6-4.6); Lymphocytes % 16.5 %; Mean Corpuscular HGB Conc 34.1 g/dL (31.6-35.5); Mean Corpuscular Hemoglobin 32.3 pg (28.0-33.3); Mean Corpuscular Volume 94.8 fL (83.0-100.0); Mean Platelet Volume 9.8 fL (9.4-12.4); Monocytes # 0.1 K/mcL (0.0-1.3); Monocytes % 5.9 %; Neutrophils # 1.8 K/mcL (1.6-8.9); Platelet Count 55 K/mcL (140-400); Red Blood Count 2.32 M/mcL (3.82-4.97); Segmented Neutrophils % 74.3 %
[2021-04-23 09:31] LABS: Calcium 8.7 mg/dL (8.6-10.3); Potassium 4.8 mEq/L (3.5-5.1)
[2021-04-23] MEDS ORDERED: *HR* Alteplase (Cathflo) 2 MG VIAL IVP ONE (12:25)
[2021-04-23] MEDS ORDERED: Ipratropium 1 PUFF INHALER IH PRN (17:40)
[2021-04-24] MEDS: ALPRAZolam 1 MG TABLET PO PRN ×3 (01:35→20:08)
[2021-04-24] MEDS: *HR* OxyCODONE/APAP 10/325 TABLET PO PRN ×5 (01:38→22:10)
[2021-04-24 02:18] LABS: Immature Granulocytes % 0.7 % (0-4); Monocytes % 5.1 %; Red Cell Distribution Width 16.1 % (11.5-14.5)
[2021-04-24 02:20] LABS: Basophils % 0.3 %; Eosinophils # 0.1 K/mcL (0.0-0.6); Eosinophils % 1.7 %; Hematocrit 22.2 % (35.3-44.9); Hemoglobin 7.3 g/dL (11.5-15.4); Immature Platelets 1.7 % (1.1-6.1); Lymphocytes # 0.6 K/mcL (0.6-4.6); Lymphocytes % 18.6 %; Mean Corpuscular HGB Conc 32.9 g/dL (31.6-35.5); Mean Corpuscular Hemoglobin 31.5 pg (28.0-33.3); Mean Corpuscular Volume 95.7 fL (83.0-100.0); Mean Platelet Volume 10.1 fL (9.4-12.4); Monocytes # 0.2 K/mcL (0.0-1.3); Neutrophils # 2.2 K/mcL (1.6-8.9); Platelet Count 62 K/mcL (140-400); Red Blood Count 2.32 M/mcL (3.82-4.97); Segmented Neutrophils % 73.6 %
[2021-04-24 02:35] LABS: Calcium 9.1 mg/dL (8.6-10.3); Potassium 5.8 mEq/L (3.5-5.1)
[2021-04-24] MEDS: *HR* Heparin 5,000 UNIT/ML VIAL SQ SCH ×2 (05:37→18:00)
[2021-04-24] MEDS: OXYCODONE MYRISTATE 9 MG PO SCH ×2 (06:50→20:09)
[2021-04-24] MEDS ORDERED: *HR* Heparin 10,000 UNIT/10 ML VIAL IV PRN (08:03)
[2021-04-24] MEDS ORDERED: 0.9 % Sodium Chloride 250 ML IVC PRN (08:03)
[2021-04-24] MEDS: Insulin LISPRO 300 UNITS/3 ML VIAL SUBQ SCH ×3 (08:53→17:57)
[2021-04-24] MEDS ORDERED: Ergocalciferol (VIT D2) 50,000 UNIT (1.25MG) CAP PO SCH (09:00)
[2021-04-24] MEDS: Cholecalciferol (D-3) 1,000 UNIT (25MCG) TABLET PO SCH (14:09)
[2021-04-24] MEDS: Aspirin 81 MG TAB.CHEW PO SCH (14:09)
[2021-04-24] MEDS: carvediloL 25 MG TABLET PO SCH ×2 (14:10→17:57)
[2021-04-24] MEDS: Calcium Acetate 667 MG CAPSULE PO SCH ×3 (14:10→17:57)
[2021-04-24] MEDS: predniSONE 5 MG TABLET PO SCH (14:10)
[2021-04-24] MEDS: Piperacillin/Tazobactam 3.375 GM in 0.9 % Sodium Chloride Mini Bag 100 ML IVPB SCH ×2 (14:11→20:09)
[2021-04-24] MEDS: Sucralfate 1 GM TABLET PO SCH ×2 (14:16→18:10)
[2021-04-24] MEDS: NIFEdipine XL (24 HR) 30 MG TAB.ER.24 PO SCH (14:16)
[2021-04-24] MEDS: Renal Vitamin 1 CAP CAPSULE PO SCH (14:17)
[2021-04-24] MEDS ORDERED: Vancomycin 500 MG in 0.9 % Sodium Chloride Mini Bag 100 ML IVPB ONE (16:00)
[2021-04-24] MEDS: hydrALAZINE 25 MG TABLET PO SCH ×3 (17:49→20:19)
[2021-04-24] MEDS: Insulin DETEMIR 100 UNIT/ML X5UNITS SUBQ SCH (22:09)
[2021-04-24] MEDS: Melatonin 3 MG TABLET PO PRN (22:10)
[2021-04-25] MEDS: Ipratropium 1 PUFF INHALER IH SCH ×6 (00:04→20:55)
[2021-04-25] MEDS: ALPRAZolam 1 MG TABLET PO PRN ×3 (04:25→23:52)
[2021-04-25] MEDS: *HR* Heparin 5,000 UNIT/ML VIAL SQ SCH (04:26)
[2021-04-25] MEDS: *HR* OxyCODONE/APAP 10/325 TABLET PO PRN ×3 (04:26→16:19)
[2021-04-25 04:53] LABS: Basophils % 0.4 %; Eosinophils % 0.7 %; Hemoglobin 6.8 g/dL (11.5-15.4); Mean Corpuscular Volume 97.2 fL (83.0-100.0)
[2021-04-25 04:55] LABS: Hematocrit 21.1 % (35.3-44.9); Immature Granulocytes % 0.4 % (0-4); Immature Platelets 2.8 % (1.1-6.1); Lymphocytes # 0.5 K/mcL (0.6-4.6); Lymphocytes % 19.5 %; Mean Corpuscular HGB Conc 32.2 g/dL (31.6-35.5); Mean Corpuscular Hemoglobin 31.3 pg (28.0-33.3); Mean Platelet Volume 10.3 fL (9.4-12.4); Monocytes # 0.2 K/mcL (0.0-1.3); Monocytes % 5.5 %; Platelet Count 66 K/mcL (140-400); Red Blood Count 2.17 M/mcL (3.82-4.97); Red Cell Distribution Width 16.6 % (11.5-14.5); Segmented Neutrophils % 73.5 %; White Blood Count 2.7 K/mcL (4.3-11.1)
[2021-04-25 05:13] LABS: Calcium 9.3 mg/dL (8.6-10.3); Potassium 4.7 mEq/L (3.5-5.1)
[2021-04-25] MEDS: Sucralfate 1 GM TABLET PO SCH ×3 (09:18→22:40)
[2021-04-25] MEDS: carvediloL 25 MG TABLET PO SCH ×2 (09:19→16:18)
[2021-04-25] MEDS: Aspirin 81 MG TAB.CHEW PO SCH (09:20)
[2021-04-25] MEDS: hydrALAZINE 25 MG TABLET PO SCH ×3 (09:20→21:44)
[2021-04-25] MEDS: Insulin DETEMIR 100 UNIT/ML X5UNITS SUBQ SCH ×3 (09:20→22:44)
[2021-04-25] MEDS: predniSONE 5 MG TABLET PO SCH (09:20)
[2021-04-25] MEDS: Renal Vitamin 1 CAP CAPSULE PO SCH (09:21)
[2021-04-25] MEDS: Cholecalciferol (D-3) 1,000 UNIT (25MCG) TABLET PO SCH (09:21)
[2021-04-25] MEDS: NIFEdipine XL (24 HR) 30 MG TAB.ER.24 PO SCH (09:22)
[2021-04-25] MEDS: Piperacillin/Tazobactam 3.375 GM in 0.9 % Sodium Chloride Mini Bag 100 ML IVPB SCH ×2 (09:23→21:46)
[2021-04-25] MEDS: Ondansetron 4 MG/2 ML VIAL IVP PRN ×2 (09:31→17:37)
[2021-04-25] MEDS: Insulin LISPRO 300 UNITS/3 ML VIAL SUBQ SCH ×3 (09:39→16:56)
[2021-04-25] MEDS: Calcium Acetate 667 MG CAPSULE PO SCH ×3 (09:41→16:18)
[2021-04-25] MEDS: OXYCODONE MYRISTATE 9 MG PO SCH ×2 (10:27→17:37)
[2021-04-25] MEDS ORDERED: 0.9 % Sodium Chloride 250 ML ONE (18:04)
[2021-04-25] MEDS: Melatonin 3 MG TABLET PO PRN (21:45)
[2021-04-26] MEDS: Ipratropium 1 PUFF INHALER IH SCH ×6 (00:24→20:47)
[2021-04-26 05:01] LABS: Eosinophils % 1.1 %; Hemoglobin 7.5 g/dL (11.5-15.4); Mean Corpuscular Volume 95.4 fL (83.0-100.0)
[2021-04-26 05:04] LABS: Basophils % 0.7 %; Hematocrit 22.7 % (35.3-44.9); Immature Granulocytes % 1.1 % (0-4); Immature Platelets 3.6 % (1.1-6.1); Lymphocytes # 0.5 K/mcL (0.6-4.6); Lymphocytes % 16.3 %; Mean Corpuscular Hemoglobin 31.5 pg (28.0-33.3); Mean Platelet Volume 9.9 fL (9.4-12.4); Monocytes # 0.2 K/mcL (0.0-1.3); Monocytes % 7.4 %; Neutrophils # 2.1 K/mcL (1.6-8.9); Red Blood Count 2.38 M/mcL (3.82-4.97); Red Cell Distribution Width 16.8 % (11.5-14.5); Segmented Neutrophils % 73.4 %; White Blood Count 2.8 K/mcL (4.3-11.1)
[2021-04-26 05:05] LABS: Platelet Count 63 K/mcL (140-400)
[2021-04-26 05:19] LABS: Calcium 9.2 mg/dL (8.6-10.3); Potassium 5.6 mEq/L (3.5-5.1)
[2021-04-26] MEDS: OXYCODONE MYRISTATE 9 MG PO SCH ×2 (06:03→18:39)
[2021-04-26] MEDS ORDERED: 0.9 % Sodium Chloride 250 ML IVC PRN (07:59)
[2021-04-26] MEDS ORDERED: *HR* Heparin 10,000 UNIT/10 ML VIAL IV PRN (07:59)
[2021-04-26] MEDS: *HR* OxyCODONE/APAP 10/325 TABLET PO PRN ×2 (08:49→20:16)
[2021-04-26] MEDS: Renal Vitamin 1 CAP CAPSULE PO SCH (08:49)
[2021-04-26] MEDS: Cholecalciferol (D-3) 1,000 UNIT (25MCG) TABLET PO SCH (08:50)
[2021-04-26] MEDS: Insulin DETEMIR 100 UNIT/ML X5UNITS SUBQ SCH ×2 (08:50→20:16)
[2021-04-26] MEDS: Aspirin 81 MG TAB.CHEW PO SCH (08:50)
[2021-04-26] MEDS: predniSONE 5 MG TABLET PO SCH (08:50)
[2021-04-26] MEDS: Calcium Acetate 667 MG CAPSULE PO SCH ×3 (08:50→18:39)
[2021-04-26] MEDS: Sucralfate 1 GM TABLET PO SCH ×2 (08:50→18:40)
[2021-04-26] MEDS: hydrALAZINE 25 MG TABLET PO SCH ×3 (08:52→20:16)
[2021-04-26] MEDS: Ondansetron 4 MG/2 ML VIAL IVP PRN (08:53)
[2021-04-26] MEDS: carvediloL 25 MG TABLET PO SCH ×2 (08:53→18:39)
[2021-04-26] MEDS: Insulin LISPRO 300 UNITS/3 ML VIAL SUBQ SCH ×3 (08:53→18:56)
[2021-04-26] MEDS: NIFEdipine XL (24 HR) 30 MG TAB.ER.24 PO SCH (09:49)
[2021-04-26] MEDS: Piperacillin/Tazobactam 3.375 GM in 0.9 % Sodium Chloride Mini Bag 100 ML IVPB SCH ×2 (11:42→22:39)
[2021-04-26] MEDS: Melatonin 3 MG TABLET PO PRN (22:39)
[2021-04-26] MEDS: ALPRAZolam 1 MG TABLET PO PRN (22:39)
[2021-04-27 00:24] VITALS: TEMP 98.1
[2021-04-27] MEDS: Ipratropium 1 PUFF INHALER IH SCH ×3 (00:27→08:06)
[2021-04-27 03:22] LABS: Basophils % 0.4 %; Eosinophils % 1.6 %; Hemoglobin 7.7 g/dL (11.5-15.4); Immature Granulocytes % 0.8 % (0-4); Red Cell Distribution Width 17.2 % (11.5-14.5)
[2021-04-27 03:24] LABS: Hematocrit 22.6 % (35.3-44.9); Immature Platelets 3.4 % (1.1-6.1); Lymphocytes # 0.5 K/mcL (0.6-4.6); Lymphocytes % 18.2 %; Mean Corpuscular HGB Conc 34.1 g/dL (31.6-35.5); Mean Corpuscular Hemoglobin 32.4 pg (28.0-33.3); Mean Platelet Volume 9.7 fL (9.4-12.4); Monocytes # 0.2 K/mcL (0.0-1.3); Monocytes % 8.9 %; Red Blood Count 2.38 M/mcL (3.82-4.97); Segmented Neutrophils % 70.1 %; White Blood Count 2.5 K/mcL (4.3-11.1)
[2021-04-27 03:32] LABS: Calcium 8.6 mg/dL (8.6-10.3); Neutrophils # 1.8 K/mcL (1.6-8.9); Platelet Count 66 K/mcL (140-400); Potassium 4.6 mEq/L (3.5-5.1)
[2021-04-27] MEDS: OXYCODONE MYRISTATE 9 MG PO SCH (05:18)
[2021-04-27 06:40] VITALS: PULSE 81; O2SAT 100
[2021-04-27] MEDS: *HR* OxyCODONE/APAP 10/325 TABLET PO PRN (08:57)
[2021-04-27] MEDS: NIFEdipine XL (24 HR) 30 MG TAB.ER.24 PO SCH (08:57)
[2021-04-27] MEDS: Cholecalciferol (D-3) 1,000 UNIT (25MCG) TABLET PO SCH (08:58)
[2021-04-27] MEDS: Calcium Acetate 667 MG CAPSULE PO SCH (08:58)
[2021-04-27] MEDS: Sucralfate 1 GM TABLET PO SCH (08:58)
[2021-04-27] MEDS: Renal Vitamin 1 CAP CAPSULE PO SCH (08:58)
[2021-04-27] MEDS: carvediloL 25 MG TABLET PO SCH (08:59)
[2021-04-27] MEDS: hydrALAZINE 25 MG TABLET PO SCH (08:59)
[2021-04-27] MEDS: Aspirin 81 MG TAB.CHEW PO SCH (08:59)
[2021-04-27] MEDS: predniSONE 5 MG TABLET PO SCH (08:59)
[2021-04-27] MEDS: Insulin DETEMIR 100 UNIT/ML X5UNITS SUBQ SCH (09:05)
[2021-04-27] MEDS: Insulin LISPRO 300 UNITS/3 ML VIAL SUBQ SCH (09:05)
[2021-04-27 10:54] VITALS: BP 136/86
== END 2021-04-27 10:30 | disposition home health service (06) | DRG 193 ==
LOC: EMEROOARM 13:43 → 3NENU 13:43 → OBSVTOIN 19:32 → SUATTDRO 19:32 → 3NENU 20:12
PROVIDERS: ADMIT Internal Medicine; ATTEND General Practice

== ENCOUNTER 2021-07-14 14:15 | Inpatient (IN) ==
[2021-07-14] MEDS ORDERED: 0.9 % Sodium Chloride 1,000 ML IVC ONE (14:32)
[2021-07-14 15:06] LABS: Basophils % 0.2 %; Hematocrit 17.8 % (35.3-44.9); Hemoglobin 6.3 g/dL (11.5-15.4); Immature Granulocytes % 0.4 % (0-4); Mean Corpuscular HGB Conc 35.4 g/dL (31.6-35.5)
[2021-07-14 15:08] LABS: VBG HCO3 26 mEq/L (21-27); VBG PCO2 51 mmHg (41-51); VBG PH 7.31 pH Units (7.32-7.42); VBG PO2 96 mmHg (25-50)
[2021-07-14 15:08] LABS: Eosinophils # 0.1 K/mcL (0.0-0.6); Immature Platelets 1.7 % (1.1-6.1); Lymphocytes # 0.4 K/mcL (0.6-4.6); Lymphocytes % 6.9 %; Mean Corpuscular Hemoglobin 33.7 pg (28.0-33.3); Mean Corpuscular Volume 95.2 fL (83.0-100.0); Monocytes # 0.7 K/mcL (0.0-1.3); Monocytes % 13.4 %; Red Blood Count 1.87 M/mcL (3.82-4.97); Red Cell Distribution Width 13.8 % (11.5-14.5); Segmented Neutrophils % 78.1 %; White Blood Count 5.1 K/mcL (4.3-11.1)
[2021-07-14 15:23] LABS: Albumin 3.5 g/dL (3.5-5.7); Albumin/Globulin Ratio 1.3 (1.1-2.2); Bilirubin,Indirect 0.4 mg/dL (0.0-1.0); Bilirubin,Total 0.4 mg/dL (0.3-1.0); Calcium 8.9 mg/dL (8.6-10.3); Globulin 2.8 g/dL (2.4-3.5); Potassium 3.7 mEq/L (3.5-5.1); Total Protein 6.3 g/dL (6.4-8.9); Troponin I 0.1 ng/mL (< 0.04)
[2021-07-14 15:34] LABS: Platelet Count 97 K/mcL (140-400)
[2021-07-14] MEDS ORDERED: 0.9 % Sodium Chloride w KCl 20 MEQ/1,000 ML MLS IVC SCH (16:00)
[2021-07-14 16:47] LABS: Calcium 8.8 mg/dL (8.6-10.3); Potassium 3.8 mEq/L (3.5-5.1)
[2021-07-14] MEDS ORDERED: Insulin Regular, Human 100 UNIT/ML IV ONE (18:16)
[2021-07-14] MEDS ORDERED: *HR* Dextrose 50 % in Water (Syg) 50 ML SYRINGE IVP PRN (18:16)
[2021-07-14] MEDS ORDERED: Insulin Regular, Human 100 UNIT/ML IV PRN (18:16)
[2021-07-14] MEDS ORDERED: D5% in 0.45% NACL w KCl 20 MEQ/1,000 ML MLS IVC PRN (18:16)
[2021-07-14] MEDS ORDERED: NIFEdipine XL (24 HR) 30 MG TAB.ER.24 PO PRN (19:35)
[2021-07-14] MEDS ORDERED: Naloxone 0.4 MG/ML INJ IVP PRN (19:51)
[2021-07-14] MEDS ORDERED: D5% in Water 1,000 ML IVC PRN (20:11)
[2021-07-14] MEDS ORDERED: Dextrose 4 GM Chewable Tablets PO PRN ×2 (20:11)
[2021-07-14 20:50] LABS: VBG HCO3 26 mEq/L (21-27); VBG PCO2 53 mmHg (41-51); VBG PH 7.31 pH Units (7.32-7.42); VBG PO2 97 mmHg (25-50)
[2021-07-14] MEDS ORDERED: Insulin DETEMIR 100 UNIT/ML X5UNITS SUBQ SCH (21:00)
[2021-07-14 21:08] LABS: Calcium 8.7 mg/dL (8.6-10.3)
[2021-07-14] MEDS ORDERED: 0.9 % Sodium Chloride 250 ML ONE (21:45)
[2021-07-14] MEDS: carvediloL 25 MG TABLET PO SCH ×2 (21:47→22:12)
[2021-07-14] MEDS: cloNIDine HCL 0.1 MG TABLET PO SCH ×2 (21:47→22:12)
[2021-07-14] MEDS: hydrALAZINE 25 MG TABLET PO SCH ×2 (21:47→22:12)
[2021-07-14] MEDS: Insulin LISPRO 300 UNITS/3 ML VIAL SUBQ SCH ×2 (22:20→23:50)
[2021-07-15] MEDS ORDERED: Insulin LISPRO 300 UNITS/3 ML VIAL SUBQ SCH
[2021-07-15] MEDS: *HR* Labetalol 20 MG/4 ML SYRINGE IVP PRN ×2 (01:10→02:52)
[2021-07-15] MEDS: *HR* Dextrose 50 % in Water (Syg) 50 ML SYRINGE IVP PRN ×4 (01:45→05:40)
[2021-07-15] MEDS: Insulin LISPRO 300 UNITS/3 ML VIAL SUBQ SCH ×12 (01:47→23:31)
[2021-07-15 04:51] LABS: Eosinophils % 0.9 %
[2021-07-15 04:53] LABS: Basophils % 0.4 %; Eosinophils # 0.1 K/mcL (0.0-0.6); Hemoglobin 7.4 g/dL (11.5-15.4); Immature Granulocytes % 0.4 % (0-4); Immature Platelets 1.6 % (1.1-6.1); Lymphocytes # 0.4 K/mcL (0.6-4.6); Lymphocytes % 6.4 %; Mean Corpuscular HGB Conc 35.2 g/dL (31.6-35.5); Mean Corpuscular Hemoglobin 32.7 pg (28.0-33.3); Mean Corpuscular Volume 92.9 fL (83.0-100.0); Mean Platelet Volume 8.8 fL (9.4-12.4); Monocytes # 0.6 K/mcL (0.0-1.3); Monocytes % 10.3 %; Neutrophils # 4.4 K/mcL (1.6-8.9); Red Blood Count 2.26 M/mcL (3.82-4.97); Red Cell Distribution Width 13.9 % (11.5-14.5); Segmented Neutrophils % 81.6 %; White Blood Count 5.4 K/mcL (4.3-11.1)
[2021-07-15 04:59] LABS: Platelet Count 82 K/mcL (140-400)
[2021-07-15 05:09] LABS: Calcium 8.9 mg/dL (8.6-10.3); Potassium 3.5 mEq/L (3.5-5.1)
[2021-07-15] MEDS ORDERED: *HR* Heparin 10,000 UNIT/10 ML VIAL IV PRN (08:06)
[2021-07-15] MEDS ORDERED: 0.9 % Sodium Chloride 250 ML IVC PRN (08:06)
[2021-07-15] MEDS ORDERED: 0.9 % Sodium Chloride 1,000 ML PRIME SCH (08:15)
[2021-07-15] MEDS: hydrALAZINE 25 MG TABLET PO SCH ×4 (08:50→20:17)
[2021-07-15] MEDS: cloNIDine HCL 0.1 MG TABLET PO SCH ×4 (08:50→20:16)
[2021-07-15] MEDS: carvediloL 25 MG TABLET PO SCH ×2 (08:51→15:51)
[2021-07-15 09:22] LABS: Prothrombin Time 11.2 Seconds (9.4-12.1)
[2021-07-15 09:39] LABS: Estimated Average Glucose 131 mg/dl; Hemoglobin A1C 6.2 %
[2021-07-15 09:55] LABS: Calcium 8.5 mg/dL (8.6-10.3); Potassium 3.5 mEq/L (3.5-5.1)
[2021-07-15] MEDS ORDERED: ALPRAZolam 1 MG TABLET PO ONE (12:10)
[2021-07-15] MEDS: Ondansetron ODT 4 MG TAB.RAPDIS SL PRN ×2 (17:42→23:34)
[2021-07-15] MEDS ORDERED: Acetaminophen IV 1,000 MG/100 ML BAG IVPB ONE (19:58)
[2021-07-15] MEDS ORDERED: Piperacillin/Tazobactam 3.375 GM in 0.9 % Sodium Chloride Mini Bag 100 ML IVPB SCH ×2 (22:44→23:00)
[2021-07-15] MEDS: Ipratropium/Albuterol Neb 3 ML IH SCH (23:36)
[2021-07-16] MEDS: Insulin LISPRO 300 UNITS/3 ML VIAL SUBQ SCH ×7 (02:16→21:14)
[2021-07-16 03:54] LABS: Basophils % 0.3 %; Red Cell Distribution Width 14.2 % (11.5-14.5); White Blood Count 3.9 K/mcL (4.3-11.1)
[2021-07-16 03:56] LABS: Eosinophils % 0.8 %; Hematocrit 21.3 % (35.3-44.9); Hemoglobin 7.5 g/dL (11.5-15.4); Immature Granulocytes % 0.3 % (0-4); Immature Platelets 2.5 % (1.1-6.1); Lymphocytes # 0.2 K/mcL (0.6-4.6); Lymphocytes % 4.9 %; Mean Corpuscular HGB Conc 35.2 g/dL (31.6-35.5); Mean Corpuscular Hemoglobin 33.9 pg (28.0-33.3); Mean Corpuscular Volume 96.4 fL (83.0-100.0); Mean Platelet Volume 9.7 fL (9.4-12.4); Monocytes # 0.3 K/mcL (0.0-1.3); Monocytes % 7.7 %; Neutrophils # 3.4 K/mcL (1.6-8.9); Platelet Count 79 K/mcL (140-400); Red Blood Count 2.21 M/mcL (3.82-4.97)
[2021-07-16 04:08] LABS: Calcium 8.8 mg/dL (8.6-10.3)
[2021-07-16] MEDS: *HR* Labetalol 20 MG/4 ML SYRINGE IVP PRN (04:16)
[2021-07-16] MEDS: Ondansetron ODT 4 MG TAB.RAPDIS SL PRN ×3 (06:47→22:21)
[2021-07-16] MEDS: Ipratropium/Albuterol Neb 3 ML IH SCH ×3 (07:28→23:51)
[2021-07-16] MEDS ORDERED: Cefepime HCl 1,000 MG in 0.9 % Sodium Chloride 10 ML IVP ONE (07:43)
[2021-07-16] MEDS: hydrALAZINE 25 MG TABLET PO SCH ×3 (08:22→19:57)
[2021-07-16] MEDS: cloNIDine HCL 0.1 MG TABLET PO SCH ×3 (08:22→19:57)
[2021-07-16] MEDS: carvediloL 25 MG TABLET PO SCH ×2 (08:22→15:40)
[2021-07-16] MEDS: *HR* OxyCODONE/APAP 10/325 TABLET PO PRN ×3 (11:15→22:20)
[2021-07-16] MEDS ORDERED: Insulin LISPRO 300 UNITS/3 ML VIAL SUBQ SCH (12:00)
[2021-07-16] MEDS: Oxycodone Myristate [Xtampza Er] 9 MG Cap.Spr.12 PO SCH (15:41)
[2021-07-16 19:38] LABS: Adenovirus Not Detected (Not Detect); Bordetella Pertussis Not Detected (Not Detect); Chlamydophila pneumoniae Not Detected (Not Detect); Coronavirus 229E Not Detected (Not Detect); Coronavirus HKU1 Not Detected (Not Detect); Coronavirus NL63 Not Detected (Not Detect); Coronavirus OC43 Not Detected (Not Detect); Human Metapneumovirus Not Detected (Not Detect); Human Rhinovirus/Enterovirus Not Detected (Not Detect); Influenza A Subtype 2009 H1 Not Detected (Not Detect); Influenza B Not Detected (Not Detect); Mycoplasma pneumoniae Not Detected (Not Detect); Parainfluenza Virus 1 Not Detected (Not Detect); Parainfluenza Virus 2 Not Detected (Not Detect); Parainfluenza Virus 3 Not Detected (Not Detect); Parainfluenza Virus 4 Not Detected (Not Detect); Respiratory Syncytial Virus Not Detected (Not Detect); SARS-CoV-2 Not Detected (Not Detect)
[2021-07-17] MEDS: ALPRAZolam 1 MG TABLET PO PRN ×3 (01:33→21:57)
[2021-07-17 02:51] LABS: Eosinophils % 0.4 %; Hemoglobin 6.2 g/dL (11.5-15.4); Immature Granulocytes % 0.4 % (0-4)
[2021-07-17 02:53] LABS: Basophils % 0.4 %; Hematocrit 18.5 % (35.3-44.9); Immature Platelets 1.9 % (1.1-6.1); Lymphocytes # 0.2 K/mcL (0.6-4.6); Lymphocytes % 8.3 %; Mean Corpuscular HGB Conc 33.5 g/dL (31.6-35.5); Mean Corpuscular Hemoglobin 33.2 pg (28.0-33.3); Mean Corpuscular Volume 98.9 fL (83.0-100.0); Mean Platelet Volume 9.8 fL (9.4-12.4); Monocytes # 0.3 K/mcL (0.0-1.3); Monocytes % 10.7 %; Neutrophils # 1.9 K/mcL (1.6-8.9); Red Blood Count 1.87 M/mcL (3.82-4.97); Red Cell Distribution Width 13.8 % (11.5-14.5); Segmented Neutrophils % 79.8 %; White Blood Count 2.4 K/mcL (4.3-11.1)
[2021-07-17 03:03] LABS: Calcium 8.6 mg/dL (8.6-10.3); Platelet Count 54 K/mcL (140-400); Potassium 4.5 mEq/L (3.5-5.1)
[2021-07-17] MEDS: Oxycodone Myristate [Xtampza Er] 9 MG Cap.Spr.12 PO SCH ×2 (06:13→15:16)
[2021-07-17] MEDS: Ipratropium/Albuterol Neb 3 ML IH SCH ×3 (07:20→23:22)
[2021-07-17] MEDS ORDERED: *HR* Heparin 10,000 UNIT/10 ML VIAL IV PRN (08:46)
[2021-07-17] MEDS: Ondansetron ODT 4 MG TAB.RAPDIS SL PRN (09:03)
[2021-07-17] MEDS: carvediloL 25 MG TABLET PO SCH ×2 (09:03→16:58)
[2021-07-17] MEDS: cloNIDine HCL 0.1 MG TABLET PO SCH ×3 (09:03→20:38)
[2021-07-17] MEDS: hydrALAZINE 25 MG TABLET PO SCH ×3 (09:03→20:38)
[2021-07-17] MEDS: Insulin LISPRO 300 UNITS/3 ML VIAL SUBQ SCH ×4 (09:04→20:45)
[2021-07-17] MEDS: *HR* OxyCODONE/APAP 10/325 TABLET PO PRN ×2 (11:21→19:48)
[2021-07-17 12:32] LABS: A.calcoaceticus-baumannii cplx Not Detected (Not Detect); Bacteroides fragilis by PCR Not Detected (Not Detect); Enterobacter cloacae Cmplx PCR Not Detected (Not Detect); Enterobacterales by PCR Not Detected (Not Detect); Enterococcus faecalis by PCR Not Detected (Not Detect); Enterococcus faecium by PCR Not Detected (Not Detect); Escherichia coli by PCR Not Detected (Not Detect); Klebs. pneumoniae group by PCR Not Detected (Not Detect); Klebsiella aerogenes by PCR Not Detected (Not Detect); Klebsiella oxytoca by PCR Not Detected (Not Detect); Proteus by PCR Not Detected (Not Detect); Salmonella species by PCR Not Detected (Not Detect); Serratia marcescens by PCR Not Detected (Not Detect); Staph epidermidis by PCR Not Detected (Not Detect); Staph lugdunensis by PCR Not Detected (Not Detect); Staphylococcus aureus by PCR DETECTED (Not Detect); Streptococcus agalactiae(B)PCR Not Detected (Not Detect); Streptococcus by PCR Not Detected (Not Detect); Streptococcus pneumoniae PCR Not Detected (Not Detect); Streptococcus pyogenes (A) PCR Not Detected (Not Detect); mecA/C & MREJ (MRSA) Gene DETECTED (Not Detect)
[2021-07-17 12:33] LABS: Candida albicans by PCR Not Detected (Not Detect); Candida auris by PCR Not Detected (Not Detect); Candida glabrata by PCR Not Detected (Not Detect); Candida krusei by PCR Not Detected (Not Detect); Candida parapsilosis by PCR Not Detected (Not Detect); Candida tropicalis by PCR Not Detected (Not Detect); Crypto. neoformans/gattii PCR Not Detected (Not Detect); Pseudomonas aeruginosa by PCR Not Detected (Not Detect); Stenotrophomonas maltophilia Not Detected (Not Detect)
[2021-07-17 16:12] LABS: Appearance of Pleural Fl Clear (Clear)
[2021-07-17 17:04] LABS: RBC,Pleural Fluid < 2000 RBC/mcL
[2021-07-17 17:22] LABS: Total Protein,Pleural Fluid 2.6 g/dL
[2021-07-17] MEDS ORDERED: Vancomycin 1,250 MG/262.5 ML IV.SOLN IVPB ONE (18:00)
[2021-07-17 18:20] LABS: Basophils,Pleural Fluid 0 %; Eosinophils,Pleural Fluid 0 %; Monocytes,Pleural Fluid 0 %
[2021-07-17] MEDS ORDERED: Perflutren Lipid Microsphere 1.3 ML in 0.9 % Sodium Chloride 8.7 ML IVP PRN (19:54)
[2021-07-18] MEDS: Oxycodone Myristate [Xtampza Er] 9 MG Cap.Spr.12 PO SCH ×2 (04:53→10:34)
[2021-07-18 05:22] LABS: Immature Granulocytes % 0.3 % (0-4); Mean Corpuscular Volume 99.1 fL (83.0-100.0)
[2021-07-18 05:24] LABS: Eosinophils % 0.7 %; Hemoglobin 6.9 g/dL (11.5-15.4); Immature Platelets 2.8 % (1.1-6.1); Lymphocytes # 0.4 K/mcL (0.6-4.6); Lymphocytes % 13.4 %; Mean Corpuscular HGB Conc 31.4 g/dL (31.6-35.5); Mean Corpuscular Hemoglobin 31.1 pg (28.0-33.3); Mean Platelet Volume 10.6 fL (9.4-12.4); Monocytes # 0.5 K/mcL (0.0-1.3); Monocytes % 16.9 %; Neutrophils # 2.1 K/mcL (1.6-8.9); Red Blood Count 2.22 M/mcL (3.82-4.97); Red Cell Distribution Width 16.1 % (11.5-14.5); Segmented Neutrophils % 68.7 %; White Blood Count 3.1 K/mcL (4.3-11.1)
[2021-07-18 05:52] LABS: Platelet Count 57 K/mcL (140-400)
[2021-07-18 06:25] LABS: Calcium 8.3 mg/dL (8.6-10.3); Potassium 4.2 mEq/L (3.5-5.1)
[2021-07-18] MEDS: Ipratropium/Albuterol Neb 3 ML IH SCH ×3 (07:35→23:33)
[2021-07-18] MEDS ORDERED: Albumin 25% 25gram/100mL 25 GM/100 ML IV.SOLN ONE (08:04)
[2021-07-18] MEDS: Albumin 25% 25gram/100mL 25 GM/100 ML IV.SOLN IVC SCH ×2 (08:15→10:14)
[2021-07-18] MEDS: hydrALAZINE 25 MG TABLET PO SCH (08:16)
[2021-07-18] MEDS: cloNIDine HCL 0.1 MG TABLET PO SCH (08:16)
[2021-07-18] MEDS: Insulin LISPRO 300 UNITS/3 ML VIAL SUBQ SCH (08:16)
[2021-07-18] MEDS: carvediloL 25 MG TABLET PO SCH (08:16)
[2021-07-18] MEDS: 0.9 % Sodium Chloride 250 ML IVC PRN ×2 (08:19→08:30)
[2021-07-18] MEDS ORDERED: Insulin Human Regular 10 UNIT in 0.9 % Sodium Chloride 10 ML IV ONE (08:23)
[2021-07-18 09:47] LABS: Eosinophils % 0.5 %; Hematocrit 22.5 % (35.3-44.9); Immature Granulocytes % 0.8 % (0-4); Lymphocytes % 7.2 %; Mean Corpuscular HGB Conc 31.1 g/dL (31.6-35.5); Mean Corpuscular Volume 102.7 fL (83.0-100.0); Monocytes % 16.3 %; Red Blood Count 2.19 M/mcL (3.82-4.97); Red Cell Distribution Width 16.8 % (11.5-14.5); Segmented Neutrophils % 74.9 %; White Blood Count 3.8 K/mcL (4.3-11.1)
[2021-07-18 09:48] LABS: Basophils % 0.3 %; Lymphocytes # 0.3 K/mcL (0.6-4.6); Monocytes # 0.6 K/mcL (0.0-1.3)
[2021-07-18 10:02] LABS: Albumin 3.2 g/dL (3.5-5.7); Albumin/Globulin Ratio 1.2 (1.1-2.2); Bilirubin,Direct 0.2 mg/dL (0.0-0.2); Bilirubin,Indirect 0.4 mg/dL (0.0-1.0); Bilirubin,Total 0.6 mg/dL (0.3-1.0); Calcium 8.4 mg/dL (8.6-10.3); Globulin 2.7 g/dL (2.4-3.5); Magnesium 2.1 mg/dL (1.6-2.6); Potassium 4.5 mEq/L (3.5-5.1); Total Protein 5.9 g/dL (6.4-8.9)
[2021-07-18 10:09] LABS: Neutrophils # 2.9 K/mcL (1.6-8.9); Platelet Count 31 K/mcL (140-400)
[2021-07-18] MEDS ORDERED: Insulin Human Regular 100 UNIT in 0.9 % Sodium Chloride 99 ML IVC SCH (10:45)
[2021-07-18 10:58] LABS: ABG Base Excess -24 mEq/L (-2 to 3); ABG HCO3 5 mEq/L (21-27); ABG Oxygen Saturation 96 % (95-98); ABG PCO2 18 mmHg (35-45); ABG PH 7.05 pH Units (7.32-7.45); ABG PO2 110 mmHg (85-104); ABG TCO2 6 mEq/L (20-26)
[2021-07-18] MEDS ORDERED: 0.9 % Sodium Chloride 500 ML ONE (11:00)
[2021-07-18] MEDS ORDERED: Vancomycin 500 MG in 0.9 % Sodium Chloride Mini Bag 100 ML IVPB ONE (11:00)
[2021-07-18] MEDS ORDERED: 0.9 % Sodium Chloride 500 ML IVC ONE (11:00)
[2021-07-18] MEDS ORDERED: Sodium Bicarbonate 50 MEQ/50 ML VIAL IVP ONE (11:00)
[2021-07-18] MEDS ORDERED: Insulin Regular, Human 100 UNIT/ML IV PRN (11:13)
[2021-07-18] MEDS ORDERED: D5% in 0.45% NACL w KCl 20 MEQ/1,000 ML MLS IVC PRN (11:13)
[2021-07-18] MEDS ORDERED: D5% in 0.45% NACL 1,000 ML IVC PRN (11:13)
[2021-07-18] MEDS ORDERED: 0.45 % Sodium Chloride w/KCl 20 MEQ/1,000 ML MLS IVC SCH (11:15)
[2021-07-18] MEDS: Ondansetron ODT 4 MG TAB.RAPDIS SL PRN ×2 (11:49→17:49)
[2021-07-18 13:55] LABS: Potassium 3.6 mEq/L (3.5-5.1)
[2021-07-18] MEDS: *HR* Labetalol 20 MG/4 ML SYRINGE IVP PRN (18:07)
[2021-07-18 18:52] LABS: Potassium 3.5 mEq/L (3.5-5.1)
[2021-07-18] MEDS: *HR* Dextrose 50 % in Water (Syg) 50 ML SYRINGE IVP PRN (19:41)
[2021-07-18 21:46] LABS: Calcium 8.1 mg/dL (8.6-10.3); Potassium 4.3 mEq/L (3.5-5.1)
[2021-07-19 01:45] LABS: Calcium 7.9 mg/dL (8.6-10.3); Potassium 3.4 mEq/L (3.5-5.1)
[2021-07-19] MEDS: *HR* Labetalol 20 MG/4 ML SYRINGE IVP PRN ×4 (02:15→21:52)
[2021-07-19] MEDS ORDERED: 0.9 % Sodium Chloride 500 ML IVC ONE (05:20)
[2021-07-19 05:41] LABS: VBG Ionized Calcium 1.04 mmol/L (1.15-1.35)
[2021-07-19 06:01] LABS: Albumin 2.8 g/dL (3.5-5.7); Albumin/Globulin Ratio 1.2 (1.1-2.2); Bilirubin,Total 0.6 mg/dL (0.3-1.0); Calcium 8.3 mg/dL (8.6-10.3); Globulin 2.3 g/dL (2.4-3.5); Magnesium 1.9 mg/dL (1.6-2.6); Phosphorous 2.5 mg/dL (2.7-4.5); Potassium 3.8 mEq/L (3.5-5.1); Total Protein 5.1 g/dL (6.4-8.9)
[2021-07-19] MEDS: Ipratropium/Albuterol Neb 3 ML IH SCH ×2 (07:15→15:36)
[2021-07-19] MEDS: Oxycodone Myristate [Xtampza Er] 9 MG Cap.Spr.12 PO SCH ×2 (07:27→18:34)
[2021-07-19 07:31] LABS: Immature Granulocytes % 0.5 % (0-4)
[2021-07-19 07:34] LABS: Eosinophils % 0.7 %; Hematocrit 18.1 % (35.3-44.9); Hemoglobin 6.4 g/dL (11.5-15.4); Immature Platelets 2.6 % (1.1-6.1); Lymphocytes # 0.5 K/mcL (0.6-4.6); Lymphocytes % 11.5 %; Mean Corpuscular HGB Conc 35.4 g/dL (31.6-35.5); Mean Corpuscular Volume 90.5 fL (83.0-100.0); Monocytes # 0.6 K/mcL (0.0-1.3); Monocytes % 13.9 %; Red Cell Distribution Width 15.7 % (11.5-14.5); Segmented Neutrophils % 73.4 %; White Blood Count 4.1 K/mcL (4.3-11.1)
[2021-07-19 07:51] LABS: Platelet Count 64 K/mcL (140-400)
[2021-07-19 07:54] LABS: Platelet Estimate Decreased (Normal)
[2021-07-19] MEDS ORDERED: Norepinephrine 4 MG/254 ML IV.SOLN IVC SCH (08:15)
[2021-07-19 09:18] LABS: Troponin I 0.08 ng/mL (< 0.04)
[2021-07-19] MEDS ORDERED: Morphine Sulfate 2 MG/ML SYRINGE IVP ONE (09:49)
[2021-07-19] MEDS ORDERED: 0.9 % Sodium Chloride 250 ML ONE (10:59)
[2021-07-19] MEDS ORDERED: Morphine Sulfate 2 MG/ML SYRINGE IVP PRN (13:30)
[2021-07-19] MEDS ORDERED: Vancomycin 500 MG in 0.9 % Sodium Chloride Mini Bag 100 ML IVPB ONE ×2 (14:00→21:00)
[2021-07-19] MEDS ORDERED: *HR* HYDROmorphone (PF) 1 MG/ML SYRINGE IVP PRN (15:20)
[2021-07-19] MEDS: *HR* Dextrose 50 % in Water (Syg) 50 ML SYRINGE IVP PRN ×2 (15:34→17:10)
[2021-07-19 16:57] LABS: VBG HCO3 26 mEq/L (21-27); VBG PCO2 48 mmHg (41-51); VBG PH 7.34 pH Units (7.32-7.42); VBG PO2 201 mmHg (25-50)
[2021-07-19 17:08] LABS: Calcium 8.3 mg/dL (8.6-10.3); Potassium 3.7 mEq/L (3.5-5.1)
[2021-07-19 17:20] LABS: Troponin I 0.08 ng/mL (< 0.04)
[2021-07-19] MEDS: Insulin DETEMIR 100 UNIT/ML X5UNITS SUBQ SCH (18:19)
[2021-07-19] MEDS: *HR* HYDROmorphone (PF) 1 MG/ML SYRINGE IVP PRN (19:40)
[2021-07-19] MEDS: *HR* Promethazine 25 MG/ML VIAL IM PRN (20:55)
[2021-07-19] MEDS: Insulin LISPRO 300 UNITS/3 ML VIAL SUBQ SCH (21:08)
[2021-07-19] MEDS: *HR* OxyCODONE/APAP 10/325 TABLET PO PRN (23:13)
[2021-07-19] MEDS: ALPRAZolam 1 MG TABLET PO PRN (23:13)
[2021-07-20] MEDS: *HR* HYDROmorphone (PF) 1 MG/ML SYRINGE IVP PRN ×7 (00:11→23:11)
[2021-07-20] MEDS: Ipratropium/Albuterol Neb 3 ML IH SCH ×4 (00:12→23:53)
[2021-07-20] MEDS: Insulin LISPRO 300 UNITS/3 ML VIAL SUBQ SCH ×4 (00:17→18:07)
[2021-07-20 04:01] LABS: Eosinophils % 1.9 %; Hemoglobin 7.2 g/dL (11.5-15.4)
[2021-07-20 04:04] LABS: Eosinophils # 0.1 K/mcL (0.0-0.6); Hematocrit 20.5 % (35.3-44.9); Immature Granulocytes % 0.6 % (0-4); Lymphocytes # 0.5 K/mcL (0.6-4.6); Lymphocytes % 12.4 %; Mean Corpuscular HGB Conc 35.1 g/dL (31.6-35.5); Mean Corpuscular Hemoglobin 31.4 pg (28.0-33.3); Mean Corpuscular Volume 89.5 fL (83.0-100.0); Mean Platelet Volume 9.9 fL (9.4-12.4); Monocytes # 0.5 K/mcL (0.0-1.3); Monocytes % 13.8 %; Neutrophils # 2.6 K/mcL (1.6-8.9); Red Blood Count 2.29 M/mcL (3.82-4.97); Red Cell Distribution Width 16.8 % (11.5-14.5); Segmented Neutrophils % 71.3 %; White Blood Count 3.6 K/mcL (4.3-11.1)
[2021-07-20 04:08] LABS: VBG Ionized Calcium 1.11 mmol/L (1.15-1.35)
[2021-07-20 04:12] LABS: Platelet Count 64 K/mcL (140-400)
[2021-07-20 04:15] LABS: Calcium 8.1 mg/dL (8.6-10.3); Phosphorous 3.6 mg/dL (2.7-4.5); Potassium 3.8 mEq/L (3.5-5.1)
[2021-07-20 04:25] LABS: Troponin I 0.08 ng/mL (< 0.04)
[2021-07-20] MEDS: *HR* Labetalol 20 MG/4 ML SYRINGE IVP PRN ×2 (04:48→16:30)
[2021-07-20] MEDS: *HR* Promethazine 25 MG/ML VIAL IM PRN ×2 (04:56→18:09)
[2021-07-20] MEDS: Oxycodone Myristate [Xtampza Er] 9 MG Cap.Spr.12 PO SCH ×2 (06:25→18:00)
[2021-07-20] MEDS: ALPRAZolam 1 MG TABLET PO PRN ×2 (06:29→16:29)
[2021-07-20] MEDS: Ondansetron ODT 4 MG TAB.RAPDIS SL PRN ×2 (07:46→20:06)
[2021-07-20] MEDS ORDERED: *HR* Heparin 10,000 UNIT/10 ML VIAL IV PRN (08:30)
[2021-07-20] MEDS ORDERED: 0.9 % Sodium Chloride 250 ML IVC PRN (08:30)
[2021-07-20] MEDS ORDERED: Albumin 25% 25gram/100mL 25 GM/100 ML IV.SOLN IVPB PRN (08:34)
[2021-07-20] MEDS: *HR* OxyCODONE/APAP 10/325 TABLET PO PRN ×4 (08:45→22:22)
[2021-07-20] MEDS: VANCOMYCIN IVP SCH (18:36)
[2021-07-20] MEDS: HEPARIN IVP SCH (18:36)
[2021-07-20] MEDS: LOK IVP SCH (18:36)
[2021-07-20] MEDS: Nitroglycerin 1 INCH/GM PACKET TP SCH (20:09)
[2021-07-20] MEDS: Insulin DETEMIR 100 UNIT/ML X5UNITS SUBQ SCH (21:17)
[2021-07-20] MEDS ORDERED: cloNIDine HCL 0.1 MG TABLET PO ONE (23:26)
[2021-07-21] MEDS: ALPRAZolam 1 MG TABLET PO PRN ×3 (00:42→22:14)
[2021-07-21] MEDS: *HR* Promethazine 25 MG/ML VIAL IM PRN (00:43)
[2021-07-21] MEDS: Insulin LISPRO 300 UNITS/3 ML VIAL SUBQ SCH ×5 (01:00→23:14)
[2021-07-21] MEDS: *HR* HYDROmorphone (PF) 1 MG/ML SYRINGE IVP PRN ×5 (05:43→22:14)
[2021-07-21] MEDS: LOK IVP SCH ×2 (05:43→18:32)
[2021-07-21] MEDS: HEPARIN IVP SCH ×2 (05:43→18:32)
[2021-07-21] MEDS: VANCOMYCIN IVP SCH ×2 (05:43→18:32)
[2021-07-21] MEDS: Oxycodone Myristate [Xtampza Er] 9 MG Cap.Spr.12 PO SCH ×2 (07:08→18:38)
[2021-07-21] MEDS: Nitroglycerin 1 INCH/GM PACKET TP SCH ×2 (07:08→12:53)
[2021-07-21] MEDS: Ipratropium/Albuterol Neb 3 ML IH SCH (07:29)
[2021-07-21] MEDS: hydrALAZINE 25 MG TABLET PO SCH ×3 (08:49→20:58)
[2021-07-21] MEDS: cloNIDine HCL 0.1 MG TABLET PO SCH ×3 (08:50→20:58)
[2021-07-21] MEDS: Ondansetron ODT 4 MG TAB.RAPDIS SL PRN (08:50)
[2021-07-21] MEDS ORDERED: Vancomycin 500 MG in 0.9 % Sodium Chloride Mini Bag 100 ML IVPB ONE (12:00)
[2021-07-21] MEDS: carvediloL 25 MG TABLET PO SCH ×2 (12:53→18:40)
[2021-07-21] MEDS: *HR* OxyCODONE/APAP 10/325 TABLET PO PRN (12:55)
[2021-07-21] MEDS ORDERED: HEPARIN IVP ONE (14:00)
[2021-07-21] MEDS ORDERED: LOK IVP ONE (14:00)
[2021-07-21] MEDS ORDERED: VANCOMYCIN IVP ONE (14:00)
[2021-07-21] MEDS: *HR* FentaNYL PATCH 25 MCG PATCH TD SCH (16:22)
[2021-07-22] MEDS: *HR* HYDROmorphone (PF) 1 MG/ML SYRINGE IVP PRN (04:27)
[2021-07-22] MEDS: Oxycodone Myristate [Xtampza Er] 9 MG Cap.Spr.12 PO SCH (05:21)
[2021-07-22] MEDS: Nitroglycerin 1 INCH/GM PACKET TP SCH ×2 (05:21→14:28)
[2021-07-22] MEDS: ALPRAZolam 1 MG TABLET PO PRN ×2 (05:58→14:36)
[2021-07-22] MEDS: Insulin LISPRO 300 UNITS/3 ML VIAL SUBQ SCH ×3 (05:59→17:28)
[2021-07-22] MEDS: HEPARIN IVP SCH ×3 (05:59→14:38)
[2021-07-22] MEDS: LOK IVP SCH ×3 (05:59→14:38)
[2021-07-22] MEDS: VANCOMYCIN IVP SCH ×3 (05:59→14:38)
[2021-07-22] MEDS: cloNIDine HCL 0.1 MG TABLET PO SCH ×3 (08:02→20:08)
[2021-07-22] MEDS: carvediloL 25 MG TABLET PO SCH ×2 (08:02→17:27)
[2021-07-22] MEDS: hydrALAZINE 25 MG TABLET PO SCH ×3 (08:02→20:08)
[2021-07-22] MEDS: *HR* OxyCODONE/APAP 10/325 TABLET PO PRN ×3 (08:06→19:39)
[2021-07-22] MEDS ORDERED: VANCOMYCIN IVP ONE (08:30)
[2021-07-22] MEDS ORDERED: LOK IVP ONE (08:30)
[2021-07-22] MEDS ORDERED: HEPARIN IVP ONE (08:30)
[2021-07-22] MEDS ORDERED: *HR* Heparin 10,000 UNIT/10 ML VIAL IV PRN (08:41)
[2021-07-22] MEDS ORDERED: 0.9 % Sodium Chloride 250 ML IVC PRN (08:41)
[2021-07-22 10:12] LABS: Hemoglobin 6.1 g/dL (11.5-15.4)
[2021-07-22 10:14] LABS: Hematocrit 17.6 % (35.3-44.9); Immature Platelets 2.3 % (1.1-6.1); Mean Corpuscular HGB Conc 34.7 g/dL (31.6-35.5); Mean Corpuscular Hemoglobin 30.7 pg (28.0-33.3); Mean Corpuscular Volume 88.4 fL (83.0-100.0); Mean Platelet Volume 9.6 fL (9.4-12.4); Red Blood Count 1.99 M/mcL (3.82-4.97); Red Cell Distribution Width 15.4 % (11.5-14.5); White Blood Count 1.6 K/mcL (4.3-11.1)
[2021-07-22 10:21] LABS: Calcium 9.1 mg/dL (8.6-10.3); Potassium 4.6 mEq/L (3.5-5.1)
[2021-07-22] MEDS: *HR* Labetalol 20 MG/4 ML SYRINGE IVP PRN (15:16)
[2021-07-22] MEDS ORDERED: D5% in Water 1,000 ML IVC PRN (21:37)
[2021-07-22] MEDS ORDERED: Dextrose 4 GM Chewable Tablets PO PRN ×2 (21:37)
[2021-07-22] MEDS ORDERED: *HR* Dextrose 50 % in Water (Syg) 50 ML SYRINGE IVP PRN (21:37)
[2021-07-22] MEDS: Insulin DETEMIR 100 UNIT/ML X5UNITS SUBQ SCH (22:33)
[2021-07-23] MEDS: *HR* Labetalol 20 MG/4 ML SYRINGE IVP PRN (00:12)
[2021-07-23] MEDS: *HR* OxyCODONE/APAP 10/325 TABLET PO PRN ×2 (00:34→05:37)
[2021-07-23] MEDS: HEPARIN IVP SCH (05:09)
[2021-07-23] MEDS: LOK IVP SCH (05:09)
[2021-07-23] MEDS: VANCOMYCIN IVP SCH (05:09)
[2021-07-23] MEDS: Nitroglycerin 1 INCH/GM PACKET TP SCH ×2 (05:37→12:06)
[2021-07-23 05:42] LABS: Hemoglobin 6.9 g/dL (11.5-15.4); Mean Platelet Volume 9.3 fL (9.4-12.4)
[2021-07-23 05:44] LABS: Hematocrit 19.9 % (35.3-44.9); Immature Platelets 2.3 % (1.1-6.1); Mean Corpuscular HGB Conc 34.7 g/dL (31.6-35.5); Mean Corpuscular Hemoglobin 30.9 pg (28.0-33.3); Mean Corpuscular Volume 89.2 fL (83.0-100.0); Red Blood Count 2.23 M/mcL (3.82-4.97); Red Cell Distribution Width 14.5 % (11.5-14.5); White Blood Count 1.4 K/mcL (4.3-11.1)
[2021-07-23 08:12] LABS: A.calcoaceticus-baumannii cplx Not Detected (Not Detect); Bacteroides fragilis by PCR Not Detected (Not Detect); Enterococcus faecalis by PCR Not Detected (Not Detect); Enterococcus faecium by PCR Not Detected (Not Detect); Staph epidermidis by PCR Not Detected (Not Detect); Staph lugdunensis by PCR Not Detected (Not Detect); Staphylococcus aureus by PCR Not Detected (Not Detect); Staphylococcus by PCR DETECTED (Not Detect); Streptococcus agalactiae(B)PCR Not Detected (Not Detect); Streptococcus by PCR Not Detected (Not Detect); Streptococcus pneumoniae PCR Not Detected (Not Detect); Streptococcus pyogenes (A) PCR Not Detected (Not Detect)
[2021-07-23 08:13] LABS: Candida albicans by PCR Not Detected (Not Detect); Candida auris by PCR Not Detected (Not Detect); Candida glabrata by PCR Not Detected (Not Detect); Candida krusei by PCR Not Detected (Not Detect); Candida parapsilosis by PCR Not Detected (Not Detect); Candida tropicalis by PCR Not Detected (Not Detect); Crypto. neoformans/gattii PCR Not Detected (Not Detect); Enterobacter cloacae Cmplx PCR Not Detected (Not Detect); Enterobacterales by PCR Not Detected (Not Detect); Escherichia coli by PCR Not Detected (Not Detect); Klebs. pneumoniae group by PCR Not Detected (Not Detect); Klebsiella aerogenes by PCR Not Detected (Not Detect); Klebsiella oxytoca by PCR Not Detected (Not Detect); Proteus by PCR Not Detected (Not Detect); Pseudomonas aeruginosa by PCR Not Detected (Not Detect); Salmonella species by PCR Not Detected (Not Detect); Serratia marcescens by PCR Not Detected (Not Detect); Stenotrophomonas maltophilia Not Detected (Not Detect)
[2021-07-23] MEDS: hydrALAZINE 25 MG TABLET PO SCH ×3 (08:25→20:15)
[2021-07-23] MEDS: cloNIDine HCL 0.1 MG TABLET PO SCH ×3 (08:25→20:15)
[2021-07-23] MEDS: amLODIPine 5 MG TABLET PO SCH (08:25)
[2021-07-23] MEDS: carvediloL 25 MG TABLET PO SCH ×2 (08:25→17:01)
[2021-07-23] MEDS: ALPRAZolam 1 MG TABLET PO PRN (08:25)
[2021-07-23] MEDS: lisinopriL 10 MG TABLET PO SCH (08:26)
[2021-07-23] MEDS: Insulin LISPRO 300 UNITS/3 ML VIAL SUBQ SCH ×6 (08:26→16:13)
[2021-07-23] MEDS ORDERED: 0.9 % Sodium Chloride 250 ML ONE (09:46)
[2021-07-23] MEDS: Ondansetron ODT 4 MG TAB.RAPDIS SL PRN (11:07)
[2021-07-23] MEDS: *HR* Promethazine 25 MG/ML VIAL IM PRN (12:53)
[2021-07-23] MEDS: Insulin DETEMIR 100 UNIT/ML X5UNITS SUBQ SCH (20:16)
[2021-07-24] MEDS: *HR* OxyCODONE/APAP 10/325 TABLET PO PRN ×4 (00:50→21:05)
[2021-07-24] MEDS: ALPRAZolam 1 MG TABLET PO PRN ×3 (01:40→21:05)
[2021-07-24] MEDS: VANCOMYCIN IVP SCH (05:08)
[2021-07-24] MEDS: Nitroglycerin 1 INCH/GM PACKET TP SCH ×2 (05:08→12:30)
[2021-07-24] MEDS: HEPARIN IVP SCH (05:08)
[2021-07-24] MEDS: LOK IVP SCH (05:08)
[2021-07-24 05:38] LABS: Mean Platelet Volume 9.4 fL (9.4-12.4)
[2021-07-24 05:40] LABS: Immature Platelets 2.5 % (1.1-6.1); Mean Corpuscular HGB Conc 34.8 g/dL (31.6-35.5); Mean Corpuscular Hemoglobin 30.7 pg (28.0-33.3); Mean Corpuscular Volume 88.1 fL (83.0-100.0); Red Blood Count 2.61 M/mcL (3.82-4.97); Red Cell Distribution Width 14.2 % (11.5-14.5)
[2021-07-24 05:52] LABS: Calcium 9.3 mg/dL (8.6-10.3); Potassium 5.1 mEq/L (3.5-5.1)
[2021-07-24] MEDS: carvediloL 25 MG TABLET PO SCH ×2 (07:35→18:32)
[2021-07-24] MEDS: Ondansetron ODT 4 MG TAB.RAPDIS SL PRN ×2 (07:35→21:17)
[2021-07-24] MEDS: hydrALAZINE 25 MG TABLET PO SCH ×3 (07:35→21:05)
[2021-07-24] MEDS: cloNIDine HCL 0.1 MG TABLET PO SCH ×3 (07:36→21:04)
[2021-07-24] MEDS: amLODIPine 5 MG TABLET PO SCH (07:36)
[2021-07-24] MEDS: Insulin LISPRO 300 UNITS/3 ML VIAL SUBQ SCH ×7 (07:36→23:22)
[2021-07-24] MEDS: lisinopriL 10 MG TABLET PO SCH (07:36)
[2021-07-24] MEDS ORDERED: 0.9 % Sodium Chloride 250 ML IVC PRN (07:56)
[2021-07-24] MEDS ORDERED: *HR* Heparin 10,000 UNIT/10 ML VIAL IV PRN (07:56)
[2021-07-24] MEDS ORDERED: 0.9 % Sodium Chloride 500 ML IVC ONE (10:12)
[2021-07-24] MEDS ORDERED: Lidocaine Viscous Oral Soln 15 ML SOLUTION MM PRN (10:12)
[2021-07-24] MEDS: *HR* Midazolam HCl 5 MG/5 ML VIAL IVP PRN ×2 (10:45→10:50)
[2021-07-24] MEDS: *HR* FentaNYL (PF) 100 MCG/2 ML VIAL IVP PRN ×2 (10:45→10:50)
[2021-07-24] MEDS: *HR* FentaNYL PATCH 25 MCG PATCH TD SCH ×2 (16:19→17:33)
[2021-07-24] MEDS: Oxycodone Myristate [Xtampza Er] 9 MG Cap.Spr.12 PO SCH ×3 (16:20→18:32)
[2021-07-24] MEDS: *HR* FentaNYL PATCH 12 MCG PATCH TD SCH (17:33)
[2021-07-24] MEDS: Insulin DETEMIR 100 UNIT/ML X5UNITS SUBQ SCH ×2 (20:55→23:18)
[2021-07-24] MEDS ORDERED: *HR* Dextrose 50 % in Water (Syg) 50 ML SYRINGE IVP PRN (23:14)
[2021-07-24] MEDS ORDERED: D5% in Water 1,000 ML IVC PRN (23:14)
[2021-07-24] MEDS ORDERED: Dextrose 4 GM Chewable Tablets PO PRN ×2 (23:14)
[2021-07-25 01:34] LABS: Hemoglobin 7.5 g/dL (11.5-15.4); Red Cell Distribution Width 14.4 % (11.5-14.5)
[2021-07-25 01:36] LABS: Hematocrit 22.9 % (35.3-44.9); Immature Platelets 4.1 % (1.1-6.1); Mean Corpuscular HGB Conc 32.8 g/dL (31.6-35.5); Mean Corpuscular Hemoglobin 30.6 pg (28.0-33.3); Mean Corpuscular Volume 93.5 fL (83.0-100.0); Mean Platelet Volume 11.4 fL (9.4-12.4); Red Blood Count 2.45 M/mcL (3.82-4.97); White Blood Count 1.5 K/mcL (4.3-11.1)
[2021-07-25] MEDS: *HR* OxyCODONE/APAP 10/325 TABLET PO PRN ×3 (01:44→15:43)
[2021-07-25 01:54] LABS: Calcium 8.1 mg/dL (8.6-10.3); Potassium 4.9 mEq/L (3.5-5.1)
[2021-07-25] MEDS: HEPARIN IVP SCH (06:05)
[2021-07-25] MEDS: LOK IVP SCH (06:05)
[2021-07-25] MEDS: VANCOMYCIN IVP SCH (06:05)
[2021-07-25] MEDS: Nitroglycerin 1 INCH/GM PACKET TP SCH ×2 (06:06→11:59)
[2021-07-25] MEDS: carvediloL 25 MG TABLET PO SCH ×2 (07:32→17:15)
[2021-07-25] MEDS: cloNIDine HCL 0.1 MG TABLET PO SCH ×3 (07:32→21:14)
[2021-07-25] MEDS: hydrALAZINE 25 MG TABLET PO SCH ×3 (07:32→21:16)
[2021-07-25] MEDS: amLODIPine 5 MG TABLET PO SCH (07:32)
[2021-07-25] MEDS: lisinopriL 10 MG TABLET PO SCH (07:32)
[2021-07-25] MEDS: Ondansetron ODT 4 MG TAB.RAPDIS SL PRN (07:33)
[2021-07-25] MEDS: Insulin LISPRO 300 UNITS/3 ML VIAL SUBQ SCH ×7 (07:35→19:55)
[2021-07-25] MEDS ORDERED: Isovue-370 500 ML BOTTLE IVP ONE (08:04)
[2021-07-25] MEDS: Oxycodone Myristate [Xtampza Er] 9 MG Cap.Spr.12 PO SCH ×2 (09:29→21:14)
[2021-07-25] MEDS: Insulin DETEMIR 100 UNIT/ML X5UNITS SUBQ SCH ×2 (10:28→21:14)
[2021-07-25] MEDS ORDERED: LOK IVP ONE (10:30)
[2021-07-25] MEDS ORDERED: VANCOMYCIN IVP ONE (10:30)
[2021-07-25] MEDS ORDERED: HEPARIN IVP ONE (10:30)
[2021-07-25] MEDS: ALPRAZolam 1 MG TABLET PO PRN (11:51)
[2021-07-25] MEDS ORDERED: Vancomycin 500 MG in 0.9 % Sodium Chloride Mini Bag 100 ML IVPB ONE (12:00)
[2021-07-25] MEDS: Ipratropium/Albuterol Neb 3 ML IH PRN (17:39)
[2021-07-26] MEDS: *HR* OxyCODONE/APAP 10/325 TABLET PO PRN ×4 (04:45→20:47)
[2021-07-26] MEDS: Ondansetron ODT 4 MG TAB.RAPDIS SL PRN (04:46)
[2021-07-26] MEDS: HEPARIN IVP SCH (06:09)
[2021-07-26] MEDS: VANCOMYCIN IVP SCH (06:09)
[2021-07-26] MEDS: LOK IVP SCH (06:09)
[2021-07-26] MEDS: Nitroglycerin 1 INCH/GM PACKET TP SCH (06:09)
[2021-07-26] MEDS ORDERED: 0.9 % Sodium Chloride 250 ML IVC PRN (06:41)
[2021-07-26 07:04] LABS: Hematocrit 22.4 % (35.3-44.9); Hemoglobin 7.6 g/dL (11.5-15.4); Mean Corpuscular HGB Conc 33.9 g/dL (31.6-35.5); Mean Corpuscular Hemoglobin 30.6 pg (28.0-33.3); Mean Corpuscular Volume 90.3 fL (83.0-100.0); Mean Platelet Volume 9.8 fL (9.4-12.4); Platelet Count 76 K/mcL (140-400); Red Blood Count 2.48 M/mcL (3.82-4.97); Red Cell Distribution Width 14.8 % (11.5-14.5); White Blood Count 2.9 K/mcL (4.3-11.1)
[2021-07-26] MEDS: Insulin LISPRO 300 UNITS/3 ML VIAL SUBQ SCH ×7 (07:19→20:41)
[2021-07-26] MEDS: hydrALAZINE 25 MG TABLET PO SCH ×3 (07:34→20:46)
[2021-07-26] MEDS: carvediloL 25 MG TABLET PO SCH ×2 (07:34→16:09)
[2021-07-26] MEDS: amLODIPine 5 MG TABLET PO SCH (07:34)
[2021-07-26] MEDS: cloNIDine HCL 0.1 MG TABLET PO SCH ×3 (07:34→20:47)
[2021-07-26] MEDS: Oxycodone Myristate [Xtampza Er] 9 MG Cap.Spr.12 PO SCH (07:34)
[2021-07-26] MEDS: ALPRAZolam 1 MG TABLET PO PRN ×2 (07:39→16:09)
[2021-07-26] MEDS: Insulin DETEMIR 100 UNIT/ML X5UNITS SUBQ SCH ×2 (07:39→20:47)
[2021-07-26 07:40] LABS: Calcium 8.6 mg/dL (8.6-10.3); Potassium 5.4 mEq/L (3.5-5.1)
[2021-07-26] MEDS: lisinopriL 10 MG TABLET PO SCH (15:07)
[2021-07-26] MEDS ORDERED: HEPARIN IVP SCH (18:00)
[2021-07-26] MEDS ORDERED: VANCOMYCIN IVP SCH (18:00)
[2021-07-26] MEDS ORDERED: LOK IVP SCH (18:00)
[2021-07-27] MEDS: *HR* OxyCODONE/APAP 10/325 TABLET PO PRN ×4 (02:07→19:17)
[2021-07-27] MEDS: ALPRAZolam 1 MG TABLET PO PRN ×2 (02:24→19:18)
[2021-07-27] MEDS ORDERED: Acetaminophen IV 1,000 MG/100 ML BAG IVPB ONE (03:54)
[2021-07-27 04:49] LABS: Hemoglobin 7.6 g/dL (11.5-15.4)
[2021-07-27 04:51] LABS: Immature Platelets 3.4 % (1.1-6.1); Mean Corpuscular HGB Conc 34.5 g/dL (31.6-35.5); Mean Platelet Volume 10.2 fL (9.4-12.4); Red Blood Count 2.45 M/mcL (3.82-4.97); Red Cell Distribution Width 15.2 % (11.5-14.5); White Blood Count 2.2 K/mcL (4.3-11.1)
[2021-07-27] MEDS ORDERED: Acetaminophen 325 MG TABLET PO ONE (04:53)
[2021-07-27 05:01] LABS: Calcium 8.1 mg/dL (8.6-10.3); Potassium 4.9 mEq/L (3.5-5.1)
[2021-07-27 05:07] LABS: Mean Corpuscular Volume 89.8 fL (83.0-100.0)
[2021-07-27] MEDS: Insulin LISPRO 300 UNITS/3 ML VIAL SUBQ SCH ×7 (08:45→22:11)
[2021-07-27] MEDS: lisinopriL 10 MG TABLET PO SCH (08:47)
[2021-07-27] MEDS: hydrALAZINE 25 MG TABLET PO SCH ×3 (08:48→19:18)
[2021-07-27] MEDS: carvediloL 25 MG TABLET PO SCH ×2 (08:49→16:15)
[2021-07-27] MEDS: cloNIDine HCL 0.1 MG TABLET PO SCH ×3 (08:49→19:19)
[2021-07-27] MEDS: amLODIPine 5 MG TABLET PO SCH (08:49)
[2021-07-27] MEDS ORDERED: Fluconazole 150 MG TABLET PO SCH ×2 (11:00→16:00)
[2021-07-27] MEDS: Insulin DETEMIR 100 UNIT/ML X5UNITS SUBQ SCH ×2 (13:44→22:00)
[2021-07-27] MEDS: predniSONE 5 MG TABLET PO SCH (13:58)
[2021-07-27 15:32] LABS: RBC,Pleural Fluid < 2000 RBC/mcL
[2021-07-27 15:39] LABS: Total Protein,Pleural Fluid 2.2 g/dL
[2021-07-27] MEDS: Sucralfate 1 GM TABLET PO SCH (15:59)
[2021-07-27] MEDS: *HR* FentaNYL PATCH 25 MCG PATCH TD SCH (16:03)
[2021-07-27] MEDS: *HR* FentaNYL PATCH 12 MCG PATCH TD SCH (16:04)
[2021-07-27 20:01] LABS: Total Protein,Pleural Fluid 2.4 g/dL
[2021-07-27 21:05] LABS: Appearance of Pleural Fl Hazy (Clear)
[2021-07-27 21:14] LABS: Basophils,Pleural Fluid 0 %; Eosinophils,Pleural Fluid 0 %
[2021-07-27 21:23] LABS: Appearance of Pleural Fl Clear (Clear)
[2021-07-27 21:26] LABS: Basophils,Pleural Fluid 0 %; Eosinophils,Pleural Fluid 0 %
[2021-07-27] MEDS: Ipratropium/Albuterol Neb 3 ML IH PRN (23:54)
[2021-07-28] MEDS: *HR* OxyCODONE/APAP 10/325 TABLET PO PRN ×3 (00:14→17:35)
[2021-07-28] MEDS: ALPRAZolam 1 MG TABLET PO PRN ×2 (02:26→19:39)
[2021-07-28] MEDS ORDERED: 0.9 % Sodium Chloride 250 ML IVC PRN (06:38)
[2021-07-28 06:47] LABS: Calcium 9.1 mg/dL (8.6-10.3); Phosphorous 4.8 mg/dL (2.7-4.5)
[2021-07-28] MEDS ORDERED: Calcium Gluconate 1gm/50mL 1 GM/50 ML BAG IVPB ONE (07:17)
[2021-07-28] MEDS ORDERED: Insulin Human Regular 10 UNIT in 0.9 % Sodium Chloride 10 ML IV ONE (07:23)
[2021-07-28] MEDS ORDERED: SODIUM ZIRCONIUM CYCLOSILICATE 5 GM POWD.PACK PO ONE (07:23)
[2021-07-28 07:34] LABS: Red Cell Distribution Width 15.2 % (11.5-14.5)
[2021-07-28] MEDS ORDERED: *HR* Midazolam HCl 5 MG/5 ML VIAL IVP ONE ×3 (07:35→07:56)
[2021-07-28] MEDS ORDERED: *HR* FentaNYL (PF) 100 MCG/2 ML VIAL ONE (07:35)
[2021-07-28 07:36] LABS: Hemoglobin 8.1 g/dL (11.5-15.4); Immature Platelets 2.9 % (1.1-6.1); Mean Corpuscular HGB Conc 36.8 g/dL (31.6-35.5); Mean Corpuscular Hemoglobin 32.1 pg (28.0-33.3); Mean Corpuscular Volume 87.3 fL (83.0-100.0); Mean Platelet Volume 10.1 fL (9.4-12.4); Red Blood Count 2.52 M/mcL (3.82-4.97); White Blood Count 3.4 K/mcL (4.3-11.1)
[2021-07-28] MEDS ORDERED: *HR* FentaNYL (PF) 100 MCG/2 ML VIAL IVP ONE ×2 (07:43→07:56)
[2021-07-28] MEDS ORDERED: *HR* Heparin 10,000 UNIT/10 ML VIAL IV PRN (09:04)
[2021-07-28] MEDS: amLODIPine 5 MG TABLET PO SCH (09:05)
[2021-07-28] MEDS: carvediloL 25 MG TABLET PO SCH ×2 (09:05→17:37)
[2021-07-28] MEDS: predniSONE 5 MG TABLET PO SCH (09:05)
[2021-07-28] MEDS: hydrALAZINE 25 MG TABLET PO SCH ×3 (09:05→21:36)
[2021-07-28] MEDS: Sucralfate 1 GM TABLET PO SCH ×2 (09:06→17:36)
[2021-07-28] MEDS: Cholecalciferol (D-3) 1,000 UNIT (25MCG) TABLET PO SCH (09:06)
[2021-07-28] MEDS: Renal Vitamin 1 CAP CAPSULE PO SCH (09:06)
[2021-07-28] MEDS: Aspirin 81 MG TAB.CHEW PO SCH (09:07)
[2021-07-28] MEDS: Insulin DETEMIR 100 UNIT/ML X5UNITS SUBQ SCH ×2 (09:07→21:51)
[2021-07-28] MEDS: cloNIDine HCL 0.1 MG TABLET PO SCH ×3 (09:07→21:51)
[2021-07-28] MEDS: lisinopriL 10 MG TABLET PO SCH (09:13)
[2021-07-28] MEDS: Insulin LISPRO 300 UNITS/3 ML VIAL SUBQ SCH ×8 (09:24→21:43)
[2021-07-28] MEDS ORDERED: *HR* Heparin 5,000 UNIT/ML VIAL ONE (10:22)
[2021-07-28 13:00] LABS: Calcium 8.5 mg/dL (8.6-10.3); Potassium 4.2 mEq/L (3.5-5.1)
[2021-07-28] MEDS ORDERED: Vancomycin 500 MG in 0.9 % Sodium Chloride Mini Bag 100 ML IVPB ONE (16:00)
[2021-07-28 17:46] LABS: Potassium 7.6 mEq/L (3.5-5.1)
[2021-07-28 18:55] LABS: Adenovirus Not Detected (Not Detect); Bordetella Pertussis Not Detected (Not Detect); Chlamydophila pneumoniae Not Detected (Not Detect); Coronavirus 229E Not Detected (Not Detect); Coronavirus HKU1 Not Detected (Not Detect); Coronavirus NL63 Not Detected (Not Detect); Coronavirus OC43 Not Detected (Not Detect); Human Metapneumovirus Not Detected (Not Detect); Human Rhinovirus/Enterovirus Not Detected (Not Detect); Influenza A Subtype 2009 H1 Not Detected (Not Detect); Influenza B Not Detected (Not Detect); Mycoplasma pneumoniae Not Detected (Not Detect); Parainfluenza Virus 1 Not Detected (Not Detect); Parainfluenza Virus 2 Not Detected (Not Detect); Parainfluenza Virus 3 Not Detected (Not Detect); Parainfluenza Virus 4 Not Detected (Not Detect); Respiratory Syncytial Virus Not Detected (Not Detect); SARS-CoV-2 Not Detected (Not Detect)
[2021-07-29] MEDS: *HR* OxyCODONE/APAP 10/325 TABLET PO PRN (00:20)
[2021-07-29 04:39] LABS: Hematocrit 19.2 % (35.3-44.9); Hemoglobin 6.7 g/dL (11.5-15.4); Mean Corpuscular HGB Conc 34.9 g/dL (31.6-35.5); Mean Corpuscular Hemoglobin 31.2 pg (28.0-33.3); Mean Corpuscular Volume 89.3 fL (83.0-100.0); Mean Platelet Volume 9.8 fL (9.4-12.4); Platelet Count 106 K/mcL (140-400); Red Blood Count 2.15 M/mcL (3.82-4.97); Red Cell Distribution Width 15.6 % (11.5-14.5); White Blood Count 3.4 K/mcL (4.3-11.1)
[2021-07-29 04:48] LABS: Calcium 8.1 mg/dL (8.6-10.3); Potassium 4.5 mEq/L (3.5-5.1)
[2021-07-29] MEDS: Insulin LISPRO 300 UNITS/3 ML VIAL SUBQ SCH ×7 (07:14→20:46)
[2021-07-29] MEDS: Sucralfate 1 GM TABLET PO SCH ×2 (07:36→16:27)
[2021-07-29] MEDS: Cholecalciferol (D-3) 1,000 UNIT (25MCG) TABLET PO SCH (07:36)
[2021-07-29] MEDS: amLODIPine 5 MG TABLET PO SCH (07:37)
[2021-07-29] MEDS: hydrALAZINE 25 MG TABLET PO SCH ×3 (07:37→20:44)
[2021-07-29] MEDS: carvediloL 25 MG TABLET PO SCH ×2 (07:37→16:45)
[2021-07-29] MEDS: Renal Vitamin 1 CAP CAPSULE PO SCH (07:37)
[2021-07-29] MEDS: cloNIDine HCL 0.1 MG TABLET PO SCH ×3 (07:37→20:45)
[2021-07-29] MEDS: Aspirin 81 MG TAB.CHEW PO SCH (07:37)
[2021-07-29] MEDS: predniSONE 5 MG TABLET PO SCH (07:37)
[2021-07-29] MEDS: ALPRAZolam 1 MG TABLET PO PRN ×2 (07:38→20:44)
[2021-07-29] MEDS ORDERED: 0.9 % Sodium Chloride 250 ML IVC PRN (09:12)
[2021-07-29] MEDS ORDERED: *HR* Heparin 10,000 UNIT/10 ML VIAL IV PRN ×2 (09:12)
[2021-07-29] MEDS: Insulin DETEMIR 100 UNIT/ML X5UNITS SUBQ SCH ×2 (09:13→20:45)
[2021-07-29] MEDS ORDERED: 0.9 % Sodium Chloride 1,000 ML PRIME SCH (09:15)
[2021-07-29 13:25] LABS: Hematocrit 22.4 % (35.3-44.9); Hemoglobin 7.8 g/dL (11.5-15.4)
[2021-07-29] MEDS ORDERED: ALPRAZolam 1 MG TABLET PO PRN (17:39)
[2021-07-29] MEDS: Melatonin 3 MG TABLET PO PRN (20:45)
[2021-07-30 03:44] LABS: Hematocrit 21.3 % (35.3-44.9); Hemoglobin 7.4 g/dL (11.5-15.4); Immature Platelets 2.6 % (1.1-6.1); Mean Corpuscular HGB Conc 34.7 g/dL (31.6-35.5); Mean Corpuscular Hemoglobin 31.8 pg (28.0-33.3); Mean Corpuscular Volume 91.4 fL (83.0-100.0); Mean Platelet Volume 9.4 fL (9.4-12.4); Red Blood Count 2.33 M/mcL (3.82-4.97); Red Cell Distribution Width 15.5 % (11.5-14.5); White Blood Count 2.9 K/mcL (4.3-11.1)
[2021-07-30 03:49] LABS: Calcium 7.9 mg/dL (8.6-10.3); Potassium 4.1 mEq/L (3.5-5.1)
[2021-07-30] MEDS: Insulin LISPRO 300 UNITS/3 ML VIAL SUBQ SCH ×7 (07:18→22:02)
[2021-07-30 07:30] LABS: Cholesterol,Body Fluid 38 mg/dL; Fluid Source for Cholesterol PLEURAL FLUID; Fluid Source for Triglycerides PLEURAL FLUID; Triglycerides,Body Fluid 48 mg/dL
[2021-07-30 07:31] LABS: Fluid Source for Triglycerides PLEURAL FLUID; Triglycerides,Body Fluid 43 mg/dL
[2021-07-30 07:31] LABS: Cholesterol,Body Fluid 35 mg/dL; Fluid Source for Cholesterol PLEURAL FLUID
[2021-07-30] MEDS: Cholecalciferol (D-3) 1,000 UNIT (25MCG) TABLET PO SCH (08:13)
[2021-07-30] MEDS: amLODIPine 5 MG TABLET PO SCH (08:14)
[2021-07-30] MEDS: carvediloL 25 MG TABLET PO SCH ×2 (08:14→16:19)
[2021-07-30] MEDS: hydrALAZINE 25 MG TABLET PO SCH ×3 (08:14→22:01)
[2021-07-30] MEDS: Renal Vitamin 1 CAP CAPSULE PO SCH (08:15)
[2021-07-30] MEDS: cloNIDine HCL 0.1 MG TABLET PO SCH ×3 (08:15→22:02)
[2021-07-30] MEDS: Aspirin 81 MG TAB.CHEW PO SCH (08:15)
[2021-07-30] MEDS: predniSONE 5 MG TABLET PO SCH (08:16)
[2021-07-30] MEDS: Sucralfate 1 GM TABLET PO SCH ×2 (08:16→16:19)
[2021-07-30] MEDS: Insulin DETEMIR 100 UNIT/ML X5UNITS SUBQ SCH ×2 (10:39→22:03)
[2021-07-30] MEDS: Ondansetron ODT 4 MG TAB.RAPDIS SL PRN (12:14)
[2021-07-30] MEDS: *HR* FentaNYL PATCH 25 MCG PATCH TD SCH (16:17)
[2021-07-30] MEDS: ALPRAZolam 1 MG TABLET PO PRN (16:19)
[2021-07-30] MEDS: *HR* FentaNYL PATCH 12 MCG PATCH TD SCH (16:25)
[2021-07-30] MEDS ORDERED: Vancomycin 500 MG in 0.9 % Sodium Chloride Mini Bag 100 ML IVPB ONE (17:00)
[2021-07-30] MEDS: Melatonin 3 MG TABLET PO PRN (22:02)
[2021-07-31] MEDS: ALPRAZolam 1 MG TABLET PO PRN ×2 (02:13→22:15)
[2021-07-31 03:53] LABS: Hematocrit 22.5 % (35.3-44.9); Hemoglobin 7.7 g/dL (11.5-15.4); Immature Platelets 1.8 % (1.1-6.1); Mean Corpuscular HGB Conc 34.2 g/dL (31.6-35.5); Mean Corpuscular Volume 93.4 fL (83.0-100.0); Mean Platelet Volume 9.4 fL (9.4-12.4); Red Blood Count 2.41 M/mcL (3.82-4.97); Red Cell Distribution Width 15.9 % (11.5-14.5); White Blood Count 3.7 K/mcL (4.3-11.1)
[2021-07-31 04:22] LABS: Calcium 8.2 mg/dL (8.6-10.3); Potassium 5.3 mEq/L (3.5-5.1)
[2021-07-31] MEDS: cloNIDine HCL 0.1 MG TABLET PO SCH ×3 (08:24→20:47)
[2021-07-31] MEDS: amLODIPine 5 MG TABLET PO SCH (08:25)
[2021-07-31] MEDS: hydrALAZINE 25 MG TABLET PO SCH ×3 (08:25→20:47)
[2021-07-31] MEDS: Aspirin 81 MG TAB.CHEW PO SCH (08:25)
[2021-07-31] MEDS: Insulin DETEMIR 100 UNIT/ML X5UNITS SUBQ SCH ×2 (08:25→20:22)
[2021-07-31] MEDS: Cholecalciferol (D-3) 1,000 UNIT (25MCG) TABLET PO SCH (08:25)
[2021-07-31] MEDS: predniSONE 5 MG TABLET PO SCH (08:25)
[2021-07-31] MEDS: Renal Vitamin 1 CAP CAPSULE PO SCH (08:25)
[2021-07-31] MEDS: carvediloL 25 MG TABLET PO SCH ×2 (08:25→17:35)
[2021-07-31] MEDS: Insulin LISPRO 300 UNITS/3 ML VIAL SUBQ SCH ×7 (08:26→20:05)
[2021-07-31] MEDS ORDERED: 0.9 % Sodium Chloride 250 ML IVC PRN (09:04)
[2021-07-31] MEDS ORDERED: *HR* Heparin 10,000 UNIT/10 ML VIAL IV PRN (09:04)
[2021-08-01 00:39] LABS: Hematocrit 21.7 % (35.3-44.9); Hemoglobin 7.3 g/dL (11.5-15.4); Mean Corpuscular HGB Conc 33.6 g/dL (31.6-35.5); Mean Corpuscular Hemoglobin 31.7 pg (28.0-33.3); Mean Corpuscular Volume 94.3 fL (83.0-100.0); Mean Platelet Volume 9.3 fL (9.4-12.4); Red Cell Distribution Width 16.7 % (11.5-14.5); White Blood Count 4.7 K/mcL (4.3-11.1)
[2021-08-01 00:41] LABS: Platelet Count 92 K/mcL (140-400)
[2021-08-01 00:59] LABS: Calcium 7.7 mg/dL (8.6-10.3)
[2021-08-01] MEDS: Ipratropium/Albuterol Neb 3 ML IH PRN (06:33)
[2021-08-01] MEDS: Insulin DETEMIR 100 UNIT/ML X5UNITS SUBQ SCH ×2 (07:23→19:50)
[2021-08-01] MEDS: Insulin LISPRO 300 UNITS/3 ML VIAL SUBQ SCH ×7 (07:35→19:44)
[2021-08-01] MEDS ORDERED: 0.9 % Sodium Chloride 500 ML ONE (08:03)
[2021-08-01] MEDS ORDERED: *HR* FentaNYL (PF) 100 MCG/2 ML VIAL IVP ONE (08:10)
[2021-08-01] MEDS ORDERED: *HR* Midazolam HCl 2 MG/2 ML VIAL IVP ONE (08:10)
[2021-08-01] MEDS ORDERED: *HR* Heparin 10,000 UNIT/10 ML VIAL IV PRN (08:20)
[2021-08-01] MEDS ORDERED: 0.9 % Sodium Chloride 250 ML IVC PRN (08:20)
[2021-08-01] MEDS ORDERED: Heparin 1,000 UNITS/500 mL 500 ML ONE (08:29)
[2021-08-01] MEDS ORDERED: Isovue-300 50ML VIAL IVP ONE (08:50)
[2021-08-01] MEDS ORDERED: *HR* Heparin 5,000 UNIT/ML VIAL ONE (08:52)
[2021-08-01] MEDS: carvediloL 25 MG TABLET PO SCH ×2 (13:38→17:11)
[2021-08-01] MEDS: Aspirin 81 MG TAB.CHEW PO SCH (13:38)
[2021-08-01] MEDS: cloNIDine HCL 0.1 MG TABLET PO SCH ×3 (13:38→19:49)
[2021-08-01] MEDS: Renal Vitamin 1 CAP CAPSULE PO SCH (13:39)
[2021-08-01] MEDS: amLODIPine 5 MG TABLET PO SCH (13:39)
[2021-08-01] MEDS: predniSONE 5 MG TABLET PO SCH (13:39)
[2021-08-01] MEDS: hydrALAZINE 25 MG TABLET PO SCH ×3 (13:40→19:49)
[2021-08-01] MEDS: Cholecalciferol (D-3) 1,000 UNIT (25MCG) TABLET PO SCH (13:40)
[2021-08-01] MEDS: ALPRAZolam 1 MG TABLET PO PRN (13:53)
[2021-08-02] MEDS: Melatonin 3 MG TABLET PO PRN (00:03)
[2021-08-02] MEDS: ALPRAZolam 1 MG TABLET PO PRN (00:07)
[2021-08-02] MEDS ORDERED: Heparin 1,000 UNITS/500 mL 500 ML ONE (08:52)
[2021-08-02] MEDS ORDERED: *HR* FentaNYL (PF) 100 MCG/2 ML VIAL ONE (09:04)
[2021-08-02] MEDS ORDERED: *HR* Midazolam HCl 2 MG/2 ML VIAL ONE (09:05)
[2021-08-02] MEDS ORDERED: *HR* FentaNYL (PF) 100 MCG/2 ML VIAL IVP ONE (09:06)
[2021-08-02] MEDS ORDERED: *HR* Midazolam HCl 2 MG/2 ML VIAL IVP ONE (09:06)
[2021-08-02] MEDS: Insulin LISPRO 300 UNITS/3 ML VIAL SUBQ SCH ×6 (10:55→17:44)
[2021-08-02] MEDS: Insulin DETEMIR 100 UNIT/ML X5UNITS SUBQ SCH (10:56)
[2021-08-02 11:57] VITALS: PULSE 74; O2SAT 94
[2021-08-02] MEDS: cloNIDine HCL 0.1 MG TABLET PO SCH ×2 (12:13→16:19)
[2021-08-02] MEDS: hydrALAZINE 25 MG TABLET PO SCH ×2 (12:13→16:19)
[2021-08-02] MEDS ORDERED: Insulin Human Regular 20 UNIT in 0.9 % Sodium Chloride 10 ML IV ONE (12:18)
[2021-08-02] MEDS: Cholecalciferol (D-3) 1,000 UNIT (25MCG) TABLET PO SCH (12:21)
[2021-08-02] MEDS: Renal Vitamin 1 CAP CAPSULE PO SCH (12:21)
[2021-08-02] MEDS: predniSONE 5 MG TABLET PO SCH (12:22)
[2021-08-02] MEDS: Aspirin 81 MG TAB.CHEW PO SCH (12:22)
[2021-08-02] MEDS: carvediloL 25 MG TABLET PO SCH ×2 (12:22→16:39)
[2021-08-02] MEDS: amLODIPine 5 MG TABLET PO SCH (12:22)
[2021-08-02] MEDS ORDERED: 0.9 % Sodium Chloride 250 ML IVC PRN (13:26)
[2021-08-02] MEDS ORDERED: *HR* Heparin 10,000 UNIT/10 ML VIAL IV PRN (13:26)
[2021-08-02] MEDS: *HR* FentaNYL PATCH 25 MCG PATCH TD SCH (16:36)
[2021-08-02] MEDS: *HR* FentaNYL PATCH 12 MCG PATCH TD SCH (16:37)
[2021-08-02 18:59] VITALS: BP 169/71; TEMP 97.9
== END 2021-08-02 19:10 | disposition home health service (06) | DRG 314 ==
LOC: 2ANU 14:15 → EMEROOARM 14:15 → SUATTDRO 16:34 → 2ANU 17:18 → 2NNU 19:39 → SUATTDRO 19:40 → 2ANU 07-15 19:35 → 2NNU 07-18 11:35 → 2ANU 07-24 15:50
PROVIDERS: ADMIT Internal Medicine; ATTEND General Practice
PROC: ENDOAPI (2021-07-17 09:30)
PROC: ENDOEBX (2021-07-28 09:20)
PROC: IRPERMA (2021-08-01 12:00)

== ENCOUNTER 2021-09-05 21:13 | Inpatient (IN) ==
[2021-09-05 21:45] LABS: Basophils % 0.3 %; Eosinophils % 0.3 %; Hemoglobin 6.5 g/dL (11.5-15.4); Immature Granulocytes % 0.3 % (0-4); Mean Corpuscular Hemoglobin 32.8 pg (28.0-33.3); Monocytes % 11.1 %; Red Blood Count 1.98 M/mcL (3.82-4.97)
[2021-09-05 21:47] LABS: Hematocrit 18.3 % (35.3-44.9); Immature Platelets 2.5 % (1.1-6.1); Lymphocytes # 0.3 K/mcL (0.6-4.6); Lymphocytes % 8.6 %; Mean Corpuscular HGB Conc 35.5 g/dL (31.6-35.5); Mean Corpuscular Volume 92.4 fL (83.0-100.0); Mean Platelet Volume 9.5 fL (9.4-12.4); Monocytes # 0.4 K/mcL (0.0-1.3); Neutrophils # 3.2 K/mcL (1.6-8.9); Platelet Count 103 K/mcL (140-400); Red Cell Distribution Width 13.9 % (11.5-14.5); Segmented Neutrophils % 79.4 %
[2021-09-05 21:47] LABS: VBG HCO3 29 mEq/L (21-27); VBG PCO2 63 mmHg (41-51); VBG PH 7.27 pH Units (7.32-7.42); VBG PO2 71 mmHg (25-50)
[2021-09-05 22:02] LABS: Alanine Aminotransferase 5 Units/L (7-52); Albumin/Globulin Ratio 1.1 (1.1-2.2); Alkaline Phosphatase 54 Units/L (34-104); Aspartate Amino Transferase 8 Units/L (13-39); BUN/Creatinine Ratio 6 (6-26); Bilirubin,Total 0.4 mg/dL (0.3-1.0); Blood Urea Nitrogen 22 mg/dL (6-20); Calcium 8.8 mg/dL (8.6-10.3); Carbon Dioxide 29 mEq/L (23-29); Chloride 88 mEq/L (98-107); Creatine Kinase < 10 Units/L (30-223); Globulin 2.8 g/dL (2.4-3.5); Glucose 208 mg/dL (70-105); Lipase 6 Units/L (11-82); Osmolality,Calculated 271 (280-300); Potassium 2.8 mEq/L (3.5-5.1); Sodium 126 mEq/L (136-145); Total Protein 5.8 g/dL (6.4-8.9); Troponin I < 0.03 ng/mL (< 0.04); eGFR For African Americans 16 (> 60); eGFR For Non-African Americans 13 (> 60)
[2021-09-05 22:40] LABS: Adenovirus Not Detected (Not Detect); Bordetella Pertussis Not Detected (Not Detect); Chlamydophila pneumoniae Not Detected (Not Detect); Coronavirus 229E Not Detected (Not Detect); Coronavirus HKU1 Not Detected (Not Detect); Coronavirus NL63 Not Detected (Not Detect); Coronavirus OC43 Not Detected (Not Detect); Human Metapneumovirus Not Detected (Not Detect); Human Rhinovirus/Enterovirus Not Detected (Not Detect); Influenza A Subtype 2009 H1 Not Detected (Not Detect); Influenza B Not Detected (Not Detect); Mycoplasma pneumoniae Not Detected (Not Detect); Parainfluenza Virus 1 Not Detected (Not Detect); Parainfluenza Virus 2 Not Detected (Not Detect); Parainfluenza Virus 3 Not Detected (Not Detect); Parainfluenza Virus 4 Not Detected (Not Detect); Respiratory Syncytial Virus Not Detected (Not Detect); SARS-CoV-2 Not Detected (Not Detect)
[2021-09-05 23:20] LABS: INR 1.1; Prothrombin Time 12.1 Seconds (9.4-12.1)
[2021-09-06] MEDS ORDERED: Melatonin 3 MG TABLET PO PRN (00:07)
[2021-09-06] MEDS ORDERED: Ondansetron 4 MG/2 ML VIAL IVP PRN (00:07)
[2021-09-06] MEDS ORDERED: Naloxone 0.4 MG/ML INJ IVP PRN (00:07)
[2021-09-06] MEDS ORDERED: *HR* Dextrose 50 % in Water (Syg) 50 ML SYRINGE IVP PRN (01:03)
[2021-09-06] MEDS ORDERED: D5% in Water 1,000 ML IVC PRN (01:03)
[2021-09-06] MEDS ORDERED: Dextrose Gel 15 GM/37.5 ML TUBE PO PRN ×2 (01:03)
[2021-09-06] MEDS ORDERED: 0.9 % Sodium Chloride 250 ML ONE (01:20)
[2021-09-06] MEDS ORDERED: Morphine Sulfate 2 MG/ML SYRINGE IVP PRN (02:24)
[2021-09-06] MEDS: *HR* Heparin 5,000 UNIT/ML VIAL SQ SCH ×3 (05:31→21:01)
[2021-09-06] MEDS: Insulin LISPRO 300 UNITS/3 ML VIAL SUBQ SCH ×3 (06:48→17:10)
[2021-09-06] MEDS ORDERED: Pantoprazole 40 MG VIAL IVP SCH (07:00)
[2021-09-06] MEDS ORDERED: 0.9 % Sodium Chloride 250 ML IVC PRN (07:21)
[2021-09-06] MEDS ORDERED: 0.9 % Sodium Chloride 2,000 ML PRIME SCH (07:30)
[2021-09-06] MEDS ORDERED: Vancomycin 1 EACH in 0.9 % Sodium Chloride 250 ML IVPB PRN (08:00)
[2021-09-06 10:20] LABS: Hematocrit 20.5 % (35.3-44.9)
[2021-09-06 10:22] LABS: Hemoglobin 7.3 g/dL (11.5-15.4); Immature Platelets 1.9 % (1.1-6.1); Mean Corpuscular HGB Conc 35.6 g/dL (31.6-35.5); Mean Corpuscular Hemoglobin 32.3 pg (28.0-33.3); Mean Corpuscular Volume 90.7 fL (83.0-100.0); Mean Platelet Volume 9.2 fL (9.4-12.4); Red Blood Count 2.26 M/mcL (3.82-4.97); Red Cell Distribution Width 14.8 % (11.5-14.5)
[2021-09-06 10:40] LABS: Calcium 8.5 mg/dL (8.6-10.3); Potassium 3.2 mEq/L (3.5-5.1)
[2021-09-06] MEDS: Pantoprazole 40 MG VIAL IVP SCH ×2 (11:26→16:55)
[2021-09-06] MEDS: *HR* HYDROmorphone (PF) 1 MG/ML SYRINGE IVP PRN ×2 (16:53→19:52)
[2021-09-06] MEDS: Metoclopramide 10 MG/2 ML VIAL IVP PRN (20:18)
[2021-09-06] MEDS ORDERED: *HR* Labetalol 20 MG/4 ML SYRINGE IVP ONE (20:39)
[2021-09-06] MEDS ORDERED: ALPRAZolam 1 MG TABLET PO ONE (20:39)
[2021-09-07] MEDS: Insulin LISPRO 300 UNITS/3 ML VIAL SUBQ SCH ×4 (00:04→17:57)
[2021-09-07] MEDS: *HR* HYDROmorphone (PF) 1 MG/ML SYRINGE IVP PRN ×4 (01:25→17:56)
[2021-09-07 03:47] LABS: Basophils % 0.5 %; Hemoglobin 6.6 g/dL (11.5-15.4); Mean Platelet Volume 9.5 fL (9.4-12.4)
[2021-09-07 03:49] LABS: Eosinophils % 0.9 %; Hematocrit 20.2 % (35.3-44.9); Immature Platelets 1.5 % (1.1-6.1); Lymphocytes # 0.4 K/mcL (0.6-4.6); Lymphocytes % 17.1 %; Mean Corpuscular HGB Conc 32.7 g/dL (31.6-35.5); Mean Corpuscular Hemoglobin 31.6 pg (28.0-33.3); Mean Corpuscular Volume 96.7 fL (83.0-100.0); Monocytes # 0.3 K/mcL (0.0-1.3); Monocytes % 13.5 %; Neutrophils # 1.5 K/mcL (1.6-8.9); Red Blood Count 2.09 M/mcL (3.82-4.97); Red Cell Distribution Width 15.7 % (11.5-14.5); White Blood Count 2.2 K/mcL (4.3-11.1)
[2021-09-07 04:05] LABS: Platelet Count 80 K/mcL (140-400)
[2021-09-07 04:11] LABS: Calcium 8.3 mg/dL (8.6-10.3); Phosphorous 2.9 mg/dL (2.7-4.5); Potassium 3.6 mEq/L (3.5-5.1)
[2021-09-07] MEDS: *HR* Heparin 5,000 UNIT/ML VIAL SQ SCH ×2 (05:12→13:21)
[2021-09-07] MEDS: Pantoprazole 40 MG VIAL IVP SCH ×2 (05:13→17:56)
[2021-09-07] MEDS ORDERED: 0.9 % Sodium Chloride 250 ML ONE (11:45)
[2021-09-07] MEDS: ALPRAZolam 1 MG TABLET PO PRN (15:01)
[2021-09-07] MEDS: amLODIPine 5 MG TABLET PO SCH ×2 (17:51→17:56)
[2021-09-07] MEDS: carvediloL 25 MG TABLET PO SCH (17:56)
[2021-09-07] MEDS: Metoclopramide 10 MG/2 ML VIAL IVP PRN (20:08)
[2021-09-07] MEDS: hydrALAZINE 25 MG TABLET PO SCH (20:34)
[2021-09-07] MEDS: Mirtazapine 15 MG TABLET PO SCH (20:34)
[2021-09-07] MEDS: cloNIDine HCL 0.1 MG TABLET PO SCH (20:35)
[2021-09-07] MEDS ORDERED: Insulin DETEMIR 100 UNIT/ML X5UNITS SUBQ SCH (21:00)
[2021-09-08] MEDS: Insulin LISPRO 300 UNITS/3 ML VIAL SUBQ SCH ×4 (00:35→18:27)
[2021-09-08] MEDS: *HR* HYDROmorphone (PF) 1 MG/ML SYRINGE IVP PRN ×4 (02:18→20:37)
[2021-09-08 02:51] LABS: Basophils % 0.3 %; Eosinophils # 0.1 K/mcL (0.0-0.6); Eosinophils % 1.9 %; Hematocrit 23.6 % (35.3-44.9); Immature Platelets 1.3 % (1.1-6.1); Lymphocytes # 0.4 K/mcL (0.6-4.6); Lymphocytes % 13.8 %; Mean Corpuscular HGB Conc 33.9 g/dL (31.6-35.5); Mean Corpuscular Hemoglobin 31.1 pg (28.0-33.3); Mean Corpuscular Volume 91.8 fL (83.0-100.0); Mean Platelet Volume 8.8 fL (9.4-12.4); Monocytes # 0.4 K/mcL (0.0-1.3); Monocytes % 11.6 %; Neutrophils # 2.3 K/mcL (1.6-8.9); Platelet Count 105 K/mcL (140-400); Red Blood Count 2.57 M/mcL (3.82-4.97); Red Cell Distribution Width 15.3 % (11.5-14.5); Segmented Neutrophils % 72.4 %; White Blood Count 3.2 K/mcL (4.3-11.1)
[2021-09-08 03:05] LABS: Albumin 3.2 g/dL (3.5-5.7); Albumin/Globulin Ratio 1.1 (1.1-2.2); Bilirubin,Total 0.6 mg/dL (0.3-1.0); Calcium 8.7 mg/dL (8.6-10.3); Globulin 2.9 g/dL (2.4-3.5); Potassium 3.1 mEq/L (3.5-5.1); Total Protein 6.1 g/dL (6.4-8.9)
[2021-09-08 03:06] LABS: Calcium 8.7 mg/dL (8.6-10.3); Potassium 3.2 mEq/L (3.5-5.1)
[2021-09-08] MEDS: Pantoprazole 40 MG VIAL IVP SCH ×2 (05:18→18:27)
[2021-09-08] MEDS ORDERED: 0.9 % Sodium Chloride 250 ML IVC PRN (07:11)
[2021-09-08] MEDS: carvediloL 25 MG TABLET PO SCH ×2 (10:51→16:20)
[2021-09-08] MEDS: *HR* OxyCODONE ER (12 HR) 10 MG TABLET PO SCH (11:36)
[2021-09-08] MEDS: cloNIDine HCL 0.1 MG TABLET PO SCH ×3 (11:36→20:37)
[2021-09-08] MEDS: amLODIPine 5 MG TABLET PO SCH (11:36)
[2021-09-08] MEDS: hydrALAZINE 25 MG TABLET PO SCH ×3 (11:36→20:36)
[2021-09-08] MEDS ORDERED: Potassium Chloride Elixir 20 MEQ/15 ML UDC PO ONE (12:19)
[2021-09-08] MEDS ORDERED: Vancomycin 500 MG in 0.9 % Sodium Chloride Mini Bag 100 ML IVPB ONE (16:00)
[2021-09-08] MEDS: Mirtazapine 15 MG TABLET PO SCH (20:36)
[2021-09-08] MEDS: ALPRAZolam 1 MG TABLET PO PRN (20:37)
[2021-09-08] MEDS ORDERED: cloNIDine HCL 0.1 MG TABLET PO ONE (21:00)
[2021-09-09] MEDS: *HR* OxyCODONE ER (12 HR) 10 MG TABLET PO SCH ×3 (01:17→23:37)
[2021-09-09] MEDS: *HR* HYDROmorphone (PF) 1 MG/ML SYRINGE IVP PRN ×6 (02:06→23:48)
[2021-09-09] MEDS: Insulin LISPRO 300 UNITS/3 ML VIAL SUBQ SCH ×4 (02:15→17:14)
[2021-09-09] MEDS: Pantoprazole 40 MG VIAL IVP SCH ×2 (06:38→17:14)
[2021-09-09] MEDS: hydrALAZINE 25 MG TABLET PO SCH ×3 (08:23→21:53)
[2021-09-09] MEDS: carvediloL 25 MG TABLET PO SCH ×2 (08:23→17:15)
[2021-09-09] MEDS: ALPRAZolam 1 MG TABLET PO PRN ×2 (08:23→21:53)
[2021-09-09] MEDS: cloNIDine HCL 0.1 MG TABLET PO SCH ×3 (08:23→21:55)
[2021-09-09] MEDS: amLODIPine 5 MG TABLET PO SCH (08:23)
[2021-09-09 10:36] LABS: Basophils % 0.4 %; Immature Granulocytes % 0.4 % (0-4)
[2021-09-09 10:38] LABS: Eosinophils % 0.8 %; Hematocrit 21.3 % (35.3-44.9); Hemoglobin 7.2 g/dL (11.5-15.4); Immature Platelets 1.2 % (1.1-6.1); Lymphocytes % 12.8 %; Mean Corpuscular HGB Conc 33.8 g/dL (31.6-35.5); Mean Corpuscular Hemoglobin 32.3 pg (28.0-33.3); Mean Corpuscular Volume 95.5 fL (83.0-100.0); Mean Platelet Volume 9.3 fL (9.4-12.4); Monocytes # 0.4 K/mcL (0.0-1.3); Monocytes % 12.8 %; Red Blood Count 2.23 M/mcL (3.82-4.97); Red Cell Distribution Width 15.1 % (11.5-14.5); Segmented Neutrophils % 72.8 %; White Blood Count 2.7 K/mcL (4.3-11.1)
[2021-09-09 10:41] LABS: Lymphocytes # 0.4 K/mcL (0.6-4.6); Platelet Count 91 K/mcL (140-400)
[2021-09-09 11:04] LABS: Albumin 3.1 g/dL (3.5-5.7); Albumin/Globulin Ratio 1.2 (1.1-2.2); Bilirubin,Total 0.6 mg/dL (0.3-1.0); Calcium 8.4 mg/dL (8.6-10.3); Globulin 2.6 g/dL (2.4-3.5); Magnesium 2.1 mg/dL (1.6-2.6); Potassium 4.5 mEq/L (3.5-5.1); Total Protein 5.7 g/dL (6.4-8.9)
[2021-09-09] MEDS ORDERED: *HR* OxyCODONE Immed Rel 5 MG TABLET PO PRN (11:05)
[2021-09-09] MEDS: Mirtazapine 15 MG TABLET PO SCH (21:53)
[2021-09-09] MEDS: Nystatin POWDER 30 GM BOTTLE TP SCH (23:48)
[2021-09-10] MEDS: Insulin LISPRO 300 UNITS/3 ML VIAL SUBQ SCH ×4 (01:42→17:06)
[2021-09-10] MEDS: *HR* HYDROmorphone (PF) 1 MG/ML SYRINGE IVP PRN ×6 (03:11→23:33)
[2021-09-10 03:37] LABS: Basophils % 0.3 %; Eosinophils # 0.1 K/mcL (0.0-0.6); Hematocrit 20.8 % (35.3-44.9); Immature Granulocytes % 0.3 % (0-4); Immature Platelets 1.3 % (1.1-6.1); Lymphocytes # 0.5 K/mcL (0.6-4.6); Mean Corpuscular HGB Conc 33.7 g/dL (31.6-35.5); Mean Corpuscular Hemoglobin 31.3 pg (28.0-33.3); Mean Corpuscular Volume 92.9 fL (83.0-100.0); Mean Platelet Volume 8.8 fL (9.4-12.4); Monocytes # 0.4 K/mcL (0.0-1.3); Monocytes % 13.4 %; Neutrophils # 2.1 K/mcL (1.6-8.9); Platelet Count 103 K/mcL (140-400); Red Blood Count 2.24 M/mcL (3.82-4.97); Red Cell Distribution Width 14.7 % (11.5-14.5); White Blood Count 3.1 K/mcL (4.3-11.1)
[2021-09-10 03:49] LABS: Albumin 2.8 g/dL (3.5-5.7); Bilirubin,Total 0.6 mg/dL (0.3-1.0); Calcium 8.5 mg/dL (8.6-10.3); Globulin 2.9 g/dL (2.4-3.5); Magnesium 2.2 mg/dL (1.6-2.6); Phosphorous 2.4 mg/dL (2.7-4.5); Total Protein 5.7 g/dL (6.4-8.9)
[2021-09-10] MEDS: Pantoprazole 40 MG VIAL IVP SCH ×2 (06:34→17:05)
[2021-09-10] MEDS: ALPRAZolam 1 MG TABLET PO PRN ×3 (08:17→23:30)
[2021-09-10] MEDS: cloNIDine HCL 0.1 MG TABLET PO SCH ×3 (08:17→20:39)
[2021-09-10] MEDS: amLODIPine 5 MG TABLET PO SCH (08:18)
[2021-09-10] MEDS: hydrALAZINE 25 MG TABLET PO SCH ×3 (08:18→20:38)
[2021-09-10] MEDS: carvediloL 25 MG TABLET PO SCH ×2 (08:18→17:05)
[2021-09-10] MEDS: Nystatin POWDER 30 GM BOTTLE TP SCH ×3 (08:20→20:49)
[2021-09-10] MEDS: *HR* OxyCODONE ER (12 HR) 10 MG TABLET PO SCH (11:39)
[2021-09-10] MEDS: Mirtazapine 15 MG TABLET PO SCH (20:39)
[2021-09-11] MEDS: Insulin LISPRO 300 UNITS/3 ML VIAL SUBQ SCH ×5 (01:09→17:31)
[2021-09-11] MEDS: *HR* OxyCODONE ER (12 HR) 10 MG TABLET PO SCH ×3 (01:11→23:40)
[2021-09-11] MEDS: *HR* HYDROmorphone (PF) 1 MG/ML SYRINGE IVP PRN ×5 (03:35→23:40)
[2021-09-11] MEDS: carvediloL 25 MG TABLET PO SCH ×2 (06:53→17:33)
[2021-09-11] MEDS: Pantoprazole 40 MG VIAL IVP SCH ×2 (06:54→17:34)
[2021-09-11] MEDS: hydrALAZINE 25 MG TABLET PO SCH ×3 (08:15→19:25)
[2021-09-11] MEDS: Nystatin POWDER 30 GM BOTTLE TP SCH ×3 (08:15→20:37)
[2021-09-11] MEDS: amLODIPine 5 MG TABLET PO SCH (08:15)
[2021-09-11] MEDS: cloNIDine HCL 0.1 MG TABLET PO SCH ×3 (08:16→20:38)
[2021-09-11] MEDS ORDERED: 0.9 % Sodium Chloride 250 ML IVC PRN (08:52)
[2021-09-11] MEDS ORDERED: Insulin DETEMIR 100 UNIT/ML X5UNITS SUBQ ONE (08:53)
[2021-09-11] MEDS ORDERED: *HR* OxyCODONE/APAP 10/325 TABLET PO PRN (10:13)
[2021-09-11 12:51] LABS: Calcium 9.7 mg/dL (8.6-10.3); Potassium 5.6 mEq/L (3.5-5.1)
[2021-09-11] MEDS: Mirtazapine 15 MG TABLET PO SCH (20:38)
[2021-09-11] MEDS: ALPRAZolam 1 MG TABLET PO PRN (20:51)
[2021-09-12] MEDS: Insulin LISPRO 300 UNITS/3 ML VIAL SUBQ SCH ×2 (00:55→06:02)
[2021-09-12] MEDS: *HR* HYDROmorphone (PF) 1 MG/ML SYRINGE IVP PRN ×2 (02:56→07:50)
[2021-09-12 03:42] LABS: Red Cell Distribution Width 14.8 % (11.5-14.5)
[2021-09-12 03:44] LABS: Hematocrit 20.8 % (35.3-44.9); Immature Platelets 1.6 % (1.1-6.1); Mean Corpuscular HGB Conc 33.7 g/dL (31.6-35.5); Mean Corpuscular Hemoglobin 31.7 pg (28.0-33.3); Mean Corpuscular Volume 94.1 fL (83.0-100.0); Mean Platelet Volume 9.2 fL (9.4-12.4); Red Blood Count 2.21 M/mcL (3.82-4.97); White Blood Count 2.1 K/mcL (4.3-11.1)
[2021-09-12 04:17] LABS: Potassium 4.9 mEq/L (3.5-5.1)
[2021-09-12] MEDS: ALPRAZolam 1 MG TABLET PO PRN (06:03)
[2021-09-12] MEDS: Pantoprazole 40 MG VIAL IVP SCH (06:04)
[2021-09-12 06:31] VITALS: BP 164/67; PULSE 83; TEMP 98; O2SAT 92
[2021-09-12] MEDS: hydrALAZINE 25 MG TABLET PO SCH (07:49)
[2021-09-12] MEDS: cloNIDine HCL 0.1 MG TABLET PO SCH (07:49)
[2021-09-12] MEDS: carvediloL 25 MG TABLET PO SCH (07:49)
[2021-09-12] MEDS: amLODIPine 5 MG TABLET PO SCH (07:49)
[2021-09-12] MEDS: Nystatin POWDER 30 GM BOTTLE TP SCH (07:50)
[2021-09-12] MEDS: *HR* OxyCODONE ER (12 HR) 10 MG TABLET PO SCH (10:49)
== END 2021-09-12 11:15 | disposition home health service (06) | DRG 391 ==
LOC: EMEROOARM 21:13 → 2ANU 21:13 → SUATTDRO 09-08 17:56
PROVIDERS: ADMIT Internal Medicine; ATTEND Family Medicine

== ENCOUNTER 2021-10-11 18:05 | Inpatient (IN) ==
[2021-10-11 18:52] LABS: Mean Platelet Volume 9.1 fL (9.4-12.4)
[2021-10-11 18:54] LABS: Basophils % 0.2 %; Eosinophils # 0.2 K/mcL (0.0-0.6); Eosinophils % 3.9 %; Hematocrit 20.5 % (35.3-44.9); Immature Granulocytes % 0.5 % (0-4); Immature Platelets 1.5 % (1.1-6.1); Lymphocytes # 0.6 K/mcL (0.6-4.6); Lymphocytes % 15.2 %; Mean Corpuscular HGB Conc 34.1 g/dL (31.6-35.5); Mean Corpuscular Hemoglobin 32.6 pg (28.0-33.3); Mean Corpuscular Volume 95.3 fL (83.0-100.0); Neutrophils # 2.8 K/mcL (1.6-8.9); Red Blood Count 2.15 M/mcL (3.82-4.97); Red Cell Distribution Width 15.4 % (11.5-14.5); Segmented Neutrophils % 67.2 %; White Blood Count 4.2 K/mcL (4.3-11.1)
[2021-10-11 18:55] LABS: Monocytes # 0.6 K/mcL (0.0-1.3); Platelet Count 95 K/mcL (140-400)
[2021-10-11 19:01] LABS: INR 1.1; Prothrombin Time 12.1 Seconds (9.4-12.1)
[2021-10-11 19:21] LABS: BUN/Creatinine Ratio 9 (6-26); Blood Urea Nitrogen 29 mg/dL (6-20); Calcium 9.7 mg/dL (8.6-10.3); Carbon Dioxide 30 mEq/L (23-29); Chloride 92 mEq/L (98-107); Glucose 95 mg/dL (70-105); Osmolality,Calculated 272 (280-300); Potassium 4.9 mEq/L (3.5-5.1); Sodium 128 mEq/L (136-145); Troponin I < 0.03 ng/mL (< 0.04); eGFR For African Americans 18 (> 60); eGFR For Non-African Americans 15 (> 60)
[2021-10-11 20:15] LABS: Alanine Aminotransferase 36 Units/L (7-52); Albumin 3.3 g/dL (3.5-5.7); Albumin/Globulin Ratio 1.3 (1.1-2.2); Alkaline Phosphatase 63 Units/L (34-104); Aspartate Amino Transferase 21 Units/L (13-39); Bilirubin,Direct 0.1 mg/dL (0.0-0.2); Bilirubin,Indirect 0.4 mg/dL (0.0-1.0); Bilirubin,Total 0.5 mg/dL (0.3-1.0); Globulin 2.6 g/dL (2.4-3.5); Total Protein 5.9 g/dL (6.4-8.9)
[2021-10-11 20:30] LABS: Influenza A PCR Negative (Negative); Influenza B PCR Negative (Negative); Resp. Syncytial Virus PCR Negative (Negative)
[2021-10-11 20:32] LABS: SARS-CoV-2 by PCR (In House) Negative (Negative)
[2021-10-11] MEDS ORDERED: Azithromycin 500 MG in 0.9 % Sodium Chloride 250 ML IVPB ONE (20:44)
[2021-10-11] MEDS ORDERED: cefTRIAXone 1,000 MG in 0.9 % Sodium Chloride 10 ML IVP ONE (20:44)
[2021-10-11] MEDS ORDERED: Melatonin 3 MG TABLET PO PRN (21:08)
[2021-10-11] MEDS ORDERED: Naloxone 0.4 MG/ML INJ IVP PRN (21:08)
[2021-10-11] MEDS ORDERED: Ondansetron ODT 4 MG TAB.RAPDIS SL PRN (21:08)
[2021-10-11] MEDS ORDERED: Acetaminophen 325 MG TABLET PO PRN (21:08)
[2021-10-11] MEDS ORDERED: 0.9 % Sodium Chloride 1,000 ML IVC SCH (21:15)
[2021-10-11] MEDS ORDERED: *HR* Dextrose 50 % in Water (Syg) 50 ML SYRINGE IVP PRN (21:15)
[2021-10-11] MEDS ORDERED: Dextrose Gel 15 GM/37.5 ML TUBE PO PRN ×2 (21:15)
[2021-10-11] MEDS ORDERED: D5% in Water 1,000 ML IVC PRN (21:15)
[2021-10-11] MEDS ORDERED: cefTRIAXone 1,000 MG in 0.9 % Sodium Chloride 10 ML IVPB ONE (22:00)
[2021-10-11 22:03] LABS: VBG HCO3 29 mEq/L (21-27); VBG PCO2 54 mmHg (41-51); VBG PH 7.34 pH Units (7.32-7.42); VBG PO2 80 mmHg (25-50)
[2021-10-11] MEDS: Insulin LISPRO 300 UNITS/3 ML VIAL SUBQ SCH (22:54)
[2021-10-12] MEDS: *HR* OxyCODONE Immed Rel 5 MG TABLET PO PRN ×2 (03:41→19:29)
[2021-10-12 05:24] LABS: Hemoglobin 6.9 g/dL (11.5-15.4); Red Cell Distribution Width 15.7 % (11.5-14.5)
[2021-10-12 05:26] LABS: Hematocrit 20.8 % (35.3-44.9); Immature Platelets 1.7 % (1.1-6.1); Mean Corpuscular HGB Conc 33.2 g/dL (31.6-35.5); Mean Corpuscular Hemoglobin 31.8 pg (28.0-33.3); Mean Corpuscular Volume 95.9 fL (83.0-100.0); Red Blood Count 2.17 M/mcL (3.82-4.97); White Blood Count 3.3 K/mcL (4.3-11.1)
[2021-10-12] MEDS ORDERED: 0.9 % Sodium Chloride 250 ML IVC PRN (08:21)
[2021-10-12] MEDS ORDERED: *HR* Heparin 10,000 UNIT/10 ML VIAL IV PRN (08:21)
[2021-10-12 08:30] LABS: Calcium 9.2 mg/dL (8.6-10.3); Chol/HDL Ratio 2.5 (0-4.9); Magnesium 2.1 mg/dL (1.6-2.6); Phosphorous 5.2 mg/dL (2.7-4.5)
[2021-10-12] MEDS ORDERED: 0.9 % Sodium Chloride 2,000 ML PRIME SCH (08:30)
[2021-10-12] MEDS: Insulin LISPRO 300 UNITS/3 ML VIAL SUBQ SCH ×4 (08:40→21:19)
[2021-10-12] MEDS ORDERED: cefTRIAXone 2,000 MG in 0.9 % Sodium Chloride 20 ML IVPB SCH (09:00)
[2021-10-12] MEDS ORDERED: cloNIDine HCL 0.1 MG TABLET PO ONE (11:14)
[2021-10-12 11:53] LABS: Estimated Average Glucose 126 mg/dl
[2021-10-12] MEDS ORDERED: *HR* Labetalol 20 MG/4 ML SYRINGE IVP ONE (19:26)
[2021-10-12] MEDS: *HR* HYDROcodone/Acet 5/325 mg TABLET PO PRN (22:21)
[2021-10-13] MEDS ORDERED: *HR* Labetalol 20 MG/4 ML SYRINGE IVP ONE (02:26)
[2021-10-13 05:14] LABS: Calcium 8.6 mg/dL (8.6-10.3); Potassium 4.6 mEq/L (3.5-5.1)
[2021-10-13] MEDS: Insulin LISPRO 300 UNITS/3 ML VIAL SUBQ SCH ×4 (08:44→20:35)
[2021-10-13] MEDS: Ondansetron 4 MG/2 ML VIAL IVP PRN (09:20)
[2021-10-13 12:11] LABS: Basophils % 0.3 %; Eosinophils % 0.5 %; Hemoglobin 7.7 g/dL (11.5-15.4); Immature Granulocytes % 0.5 % (0-4); Monocytes % 10.1 %
[2021-10-13 12:13] LABS: Hematocrit 22.5 % (35.3-44.9); Immature Platelets 1.4 % (1.1-6.1); Lymphocytes # 0.3 K/mcL (0.6-4.6); Lymphocytes % 9.3 %; Mean Corpuscular HGB Conc 34.2 g/dL (31.6-35.5); Mean Corpuscular Hemoglobin 32.9 pg (28.0-33.3); Mean Corpuscular Volume 96.2 fL (83.0-100.0); Mean Platelet Volume 8.9 fL (9.4-12.4); Monocytes # 0.4 K/mcL (0.0-1.3); Neutrophils # 2.9 K/mcL (1.6-8.9); Red Blood Count 2.34 M/mcL (3.82-4.97); Red Cell Distribution Width 16.2 % (11.5-14.5); Segmented Neutrophils % 79.3 %; White Blood Count 3.7 K/mcL (4.3-11.1)
[2021-10-13] MEDS ORDERED: Nystatin POWDER 30 GM BOTTLE TP PRN (12:20)
[2021-10-13] MEDS ORDERED: *HR* Promethazine 25 MG/ML VIAL IM ONE (12:43)
[2021-10-13 12:48] LABS: Platelet Count 83 K/mcL (140-400)
[2021-10-13] MEDS: carvediloL 25 MG TABLET PO SCH ×2 (13:57→17:16)
[2021-10-13] MEDS: cloNIDine HCL 0.1 MG TABLET PO SCH ×2 (17:15→20:38)
[2021-10-13] MEDS: hydrALAZINE 25 MG TABLET PO SCH ×2 (17:15→20:38)
[2021-10-13] MEDS: niCARdipine 20 MG/200 ML MLS IVC SCH ×2 (17:53→19:34)
[2021-10-13] MEDS: Insulin DETEMIR 100 UNIT/ML X5UNITS SUBQ SCH (20:39)
[2021-10-13] MEDS: Mirtazapine 15 MG TABLET PO SCH (20:39)
[2021-10-13] MEDS: *HR* OxyCODONE Immed Rel 5 MG TABLET PO PRN (20:39)
[2021-10-14] MEDS: Ondansetron 4 MG/2 ML VIAL IVP PRN ×2 (03:00→16:13)
[2021-10-14 03:15] LABS: Hematocrit 24.5 % (35.3-44.9); Hemoglobin 8.4 g/dL (11.5-15.4); Immature Granulocytes % 0.3 % (0-4); Mean Corpuscular HGB Conc 34.3 g/dL (31.6-35.5)
[2021-10-14 03:17] LABS: Basophils % 0.9 %; Eosinophils # 0.1 K/mcL (0.0-0.6); Eosinophils % 1.7 %; Immature Platelets 1.2 % (1.1-6.1); Lymphocytes # 0.6 K/mcL (0.6-4.6); Lymphocytes % 18.4 %; Mean Corpuscular Hemoglobin 32.6 pg (28.0-33.3); Mean Platelet Volume 8.5 fL (9.4-12.4); Monocytes # 0.5 K/mcL (0.0-1.3); Monocytes % 13.4 %; Neutrophils # 2.2 K/mcL (1.6-8.9); Red Blood Count 2.58 M/mcL (3.82-4.97); Red Cell Distribution Width 16.1 % (11.5-14.5); Segmented Neutrophils % 65.3 %; White Blood Count 3.4 K/mcL (4.3-11.1)
[2021-10-14 03:26] LABS: Platelet Count 91 K/mcL (140-400)
[2021-10-14 03:38] LABS: Calcium 8.7 mg/dL (8.6-10.3); Potassium 4.2 mEq/L (3.5-5.1)
[2021-10-14] MEDS: niCARdipine 20 MG/200 ML MLS IVC SCH ×5 (05:58→21:05)
[2021-10-14] MEDS: *HR* OxyCODONE Immed Rel 5 MG TABLET PO PRN (06:32)
[2021-10-14] MEDS ORDERED: 0.9 % Sodium Chloride 250 ML IVC PRN (08:37)
[2021-10-14] MEDS ORDERED: *HR* Heparin 10,000 UNIT/10 ML VIAL IV PRN (08:37)
[2021-10-14] MEDS: carvediloL 25 MG TABLET PO SCH ×2 (12:30→16:15)
[2021-10-14] MEDS: Insulin LISPRO 300 UNITS/3 ML VIAL SUBQ SCH ×4 (12:30→21:08)
[2021-10-14] MEDS: amLODIPine 5 MG TABLET PO SCH (12:31)
[2021-10-14] MEDS: Aspirin 81 MG TAB.CHEW PO SCH (12:31)
[2021-10-14] MEDS: hydrALAZINE 25 MG TABLET PO SCH ×3 (12:31→21:07)
[2021-10-14] MEDS: Insulin DETEMIR 100 UNIT/ML X5UNITS SUBQ SCH ×2 (12:31→21:06)
[2021-10-14] MEDS: Renal Vitamin 1 CAP CAPSULE PO SCH (12:31)
[2021-10-14] MEDS: cloNIDine HCL 0.1 MG TABLET PO SCH ×3 (12:31→21:06)
[2021-10-14] MEDS: *HR* HYDROcodone/Acet 5/325 mg TABLET PO PRN (16:14)
[2021-10-14] MEDS: Mirtazapine 15 MG TABLET PO SCH (21:06)
[2021-10-15] MEDS: *HR* HYDROcodone/Acet 5/325 mg TABLET PO PRN ×2 (03:08→21:33)
[2021-10-15] MEDS: niCARdipine 20 MG/200 ML MLS IVC SCH ×2 (05:26→20:25)
[2021-10-15] MEDS: Insulin LISPRO 300 UNITS/3 ML VIAL SUBQ SCH ×4 (06:10→20:26)
[2021-10-15 06:47] LABS: Basophils % 0.9 %; Immature Granulocytes % 0.4 % (0-4); Red Cell Distribution Width 15.5 % (11.5-14.5)
[2021-10-15 06:49] LABS: Eosinophils # 0.1 K/mcL (0.0-0.6); Eosinophils % 3.5 %; Hematocrit 22.6 % (35.3-44.9); Hemoglobin 7.6 g/dL (11.5-15.4); Immature Platelets 1.2 % (1.1-6.1); Lymphocytes # 0.3 K/mcL (0.6-4.6); Lymphocytes % 14.4 %; Mean Corpuscular HGB Conc 33.6 g/dL (31.6-35.5); Mean Corpuscular Hemoglobin 32.3 pg (28.0-33.3); Mean Corpuscular Volume 96.2 fL (83.0-100.0); Monocytes # 0.3 K/mcL (0.0-1.3); Monocytes % 14.4 %; Neutrophils # 1.5 K/mcL (1.6-8.9); Platelet Count 85 K/mcL (140-400); Red Blood Count 2.35 M/mcL (3.82-4.97); Segmented Neutrophils % 66.4 %; White Blood Count 2.3 K/mcL (4.3-11.1)
[2021-10-15] MEDS: hydrALAZINE 25 MG TABLET PO SCH ×3 (07:42→20:26)
[2021-10-15] MEDS: Aspirin 81 MG TAB.CHEW PO SCH (07:42)
[2021-10-15] MEDS: amLODIPine 5 MG TABLET PO SCH (07:42)
[2021-10-15] MEDS: cloNIDine HCL 0.1 MG TABLET PO SCH ×3 (07:42→20:25)
[2021-10-15] MEDS: carvediloL 25 MG TABLET PO SCH ×2 (07:42→16:32)
[2021-10-15] MEDS: Renal Vitamin 1 CAP CAPSULE PO SCH (07:42)
[2021-10-15] MEDS: Insulin DETEMIR 100 UNIT/ML X5UNITS SUBQ SCH ×2 (07:43→20:26)
[2021-10-15 08:55] LABS: Calcium 8.5 mg/dL (8.6-10.3); Potassium 3.8 mEq/L (3.5-5.1)
[2021-10-15] MEDS ORDERED: Iopamidol - 370 500 ML MLS PO ONE (18:11)
[2021-10-15] MEDS: Mirtazapine 15 MG TABLET PO SCH (20:26)
[2021-10-15] MEDS: Ondansetron 4 MG/2 ML VIAL IVP PRN (21:33)
[2021-10-15] MEDS: Melatonin 3 MG TABLET PO PRN (21:33)
[2021-10-16 04:03] LABS: Basophils % 0.7 %; Hemoglobin 7.9 g/dL (11.5-15.4); Immature Granulocytes % 0.4 % (0-4); Red Blood Count 2.47 M/mcL (3.82-4.97); Red Cell Distribution Width 15.3 % (11.5-14.5)
[2021-10-16 04:04] LABS: Eosinophils # 0.1 K/mcL (0.0-0.6); Eosinophils % 2.5 %; Hematocrit 24.2 % (35.3-44.9); Immature Platelets 1.5 % (1.1-6.1); Lymphocytes # 0.8 K/mcL (0.6-4.6); Lymphocytes % 29.7 %; Mean Corpuscular HGB Conc 32.6 g/dL (31.6-35.5); Mean Platelet Volume 9.2 fL (9.4-12.4); Monocytes # 0.3 K/mcL (0.0-1.3); Monocytes % 11.3 %; Neutrophils # 1.6 K/mcL (1.6-8.9); Segmented Neutrophils % 55.4 %; White Blood Count 2.8 K/mcL (4.3-11.1)
[2021-10-16 04:06] LABS: Platelet Count 91 K/mcL (140-400)
[2021-10-16 04:26] LABS: Calcium 7.6 mg/dL (8.6-10.3)
[2021-10-16] MEDS: niCARdipine 20 MG/200 ML MLS IVC SCH ×5 (07:13→17:18)
[2021-10-16] MEDS: Renal Vitamin 1 CAP CAPSULE PO SCH (07:33)
[2021-10-16] MEDS: Aspirin 81 MG TAB.CHEW PO SCH (07:34)
[2021-10-16] MEDS: Insulin DETEMIR 100 UNIT/ML X5UNITS SUBQ SCH ×2 (07:36→20:19)
[2021-10-16] MEDS: Insulin LISPRO 300 UNITS/3 ML VIAL SUBQ SCH ×4 (07:37→19:57)
[2021-10-16] MEDS ORDERED: 0.9 % Sodium Chloride 250 ML IVC PRN (08:50)
[2021-10-16] MEDS ORDERED: *HR* Heparin 10,000 UNIT/10 ML VIAL IV PRN (08:50)
[2021-10-16] MEDS: cloNIDine HCL 0.1 MG TABLET PO SCH ×3 (10:14→19:57)
[2021-10-16] MEDS ORDERED: Ergocalciferol (VIT D2) 50,000 UNIT (1.25MG) CAP PO SCH (12:20)
[2021-10-16] MEDS: carvediloL 25 MG TABLET PO SCH ×2 (12:47→18:54)
[2021-10-16] MEDS: hydrALAZINE 25 MG TABLET PO SCH ×3 (14:15→19:56)
[2021-10-16] MEDS: amLODIPine 5 MG TABLET PO SCH (17:25)
[2021-10-16] MEDS: *HR* HYDROcodone/Acet 5/325 mg TABLET PO PRN (19:56)
[2021-10-16] MEDS: Mirtazapine 15 MG TABLET PO SCH (19:57)
[2021-10-16] MEDS: Melatonin 3 MG TABLET PO PRN (19:58)
[2021-10-17 03:48] VITALS: TEMP 97.8
[2021-10-17] MEDS: *HR* HYDROcodone/Acet 5/325 mg TABLET PO PRN (05:46)
[2021-10-17 08:47] LABS: Basophils % 0.8 %; Immature Granulocytes % 0.4 % (0-4)
[2021-10-17 08:49] LABS: Eosinophils % 1.6 %; Hematocrit 22.2 % (35.3-44.9); Hemoglobin 7.6 g/dL (11.5-15.4); Immature Platelets 1.3 % (1.1-6.1); Lymphocytes # 0.8 K/mcL (0.6-4.6); Lymphocytes % 28.9 %; Mean Corpuscular HGB Conc 34.2 g/dL (31.6-35.5); Mean Corpuscular Hemoglobin 33.2 pg (28.0-33.3); Mean Corpuscular Volume 96.9 fL (83.0-100.0); Mean Platelet Volume 9.4 fL (9.4-12.4); Monocytes # 0.3 K/mcL (0.0-1.3); Monocytes % 11.7 %; Neutrophils # 1.5 K/mcL (1.6-8.9); Red Blood Count 2.29 M/mcL (3.82-4.97); Red Cell Distribution Width 14.8 % (11.5-14.5); Segmented Neutrophils % 56.6 %; White Blood Count 2.6 K/mcL (4.3-11.1)
[2021-10-17 08:50] LABS: Platelet Count 73 K/mcL (140-400)
[2021-10-17 09:04] LABS: Calcium 8.2 mg/dL (8.6-10.3)
[2021-10-17] MEDS: hydrALAZINE 25 MG TABLET PO SCH (09:48)
[2021-10-17] MEDS: carvediloL 25 MG TABLET PO SCH (09:48)
[2021-10-17] MEDS: Renal Vitamin 1 CAP CAPSULE PO SCH (09:48)
[2021-10-17] MEDS: cloNIDine HCL 0.1 MG TABLET PO SCH (09:48)
[2021-10-17] MEDS: amLODIPine 5 MG TABLET PO SCH (09:48)
[2021-10-17] MEDS: Insulin DETEMIR 100 UNIT/ML X5UNITS SUBQ SCH (09:48)
[2021-10-17] MEDS: Aspirin 81 MG TAB.CHEW PO SCH (09:48)
[2021-10-17] MEDS: Insulin LISPRO 300 UNITS/3 ML VIAL SUBQ SCH ×2 (09:48→12:25)
[2021-10-17 11:21] VITALS: BP 159/53; PULSE 80; O2SAT 99
== END 2021-10-17 12:36 | disposition home health service (06) | DRG 304 ==
LOC: EMEROOARM 18:05 → 2ANU 18:05 → SUATTDRO 21:15 → 2ANU 22:12 → 2NNU 10-13 19:42
PROVIDERS: ADMIT Internal Medicine; ATTEND Nurse Practitioner

== ENCOUNTER 2021-12-03 14:24 | Inpatient (IN) ==
[2021-12-03] MEDS ORDERED: Iopamidol - 370 500 ML MLS IVP ONE (15:18)
[2021-12-03 15:30] LABS: Hematocrit 21.5 % (35.3-44.9); Hemoglobin 7.5 g/dL (11.5-15.4); Mean Corpuscular HGB Conc 34.9 g/dL (31.6-35.5)
[2021-12-03 15:32] LABS: Basophils % 0.4 %; Immature Granulocytes % 0.4 % (0-4); Immature Platelets 1.5 % (1.1-6.1); Lymphocytes # 0.3 K/mcL (0.6-4.6); Lymphocytes % 12.2 %; Mean Corpuscular Hemoglobin 34.6 pg (28.0-33.3); Mean Corpuscular Volume 99.1 fL (83.0-100.0); Mean Platelet Volume 9.2 fL (9.4-12.4); Monocytes # 0.2 K/mcL (0.0-1.3); Monocytes % 8.9 %; Neutrophils # 2.1 K/mcL (1.6-8.9); Red Blood Count 2.17 M/mcL (3.82-4.97); Red Cell Distribution Width 15.9 % (11.5-14.5); Segmented Neutrophils % 78.1 %; White Blood Count 2.7 K/mcL (4.3-11.1)
[2021-12-03 15:32] LABS: VBG HCO3 27 mEq/L (21-27); VBG PCO2 42 mmHg (41-51); VBG PH 7.41 pH Units (7.32-7.42); VBG PO2 120 mmHg (25-50)
[2021-12-03 15:35] LABS: Platelet Count 86 K/mcL (140-400)
[2021-12-03 15:54] LABS: Alanine Aminotransferase 7 Units/L (7-52); Albumin 3.4 g/dL (3.5-5.7); Albumin/Globulin Ratio 1.1 (1.1-2.2); Alkaline Phosphatase 46 Units/L (34-104); Aspartate Amino Transferase 11 Units/L (13-39); BUN/Creatinine Ratio 12 (6-26); Bilirubin,Direct 0.1 mg/dL (0.0-0.2); Bilirubin,Indirect 0.5 mg/dL (0.0-1.0); Bilirubin,Total 0.6 mg/dL (0.3-1.0); Blood Urea Nitrogen 26 mg/dL (6-20); Calcium 8.7 mg/dL (8.6-10.3); Carbon Dioxide 26 mEq/L (23-29); Chloride 89 mEq/L (98-107); Ethanol < 10 mg/dL (Less than 10); Globulin 3.2 g/dL (2.4-3.5); Glucose 387 mg/dL (70-105); Lipase 6 Units/L (11-82); Osmolality,Calculated 285 (280-300); Potassium 4.3 mEq/L (3.5-5.1); Sodium 127 mEq/L (136-145); Total Protein 6.6 g/dL (6.4-8.9)
[2021-12-03 15:55] LABS: Troponin I < 0.03 ng/mL (< 0.04)
[2021-12-03 16:02] LABS: Influenza A PCR Negative (Negative); Influenza B PCR Negative (Negative); Resp. Syncytial Virus PCR Negative (Negative)
[2021-12-03 16:03] LABS: SARS-CoV-2 by PCR (In House) Negative (Negative)
[2021-12-03 16:09] LABS: Thyroid Stimulating Hormone 1.278 mcIU/mL (0.340-5.600)
[2021-12-03 18:52] LABS: Bilirubin,Urine Small (Negative); Blood,Urine Large (Negative); Clarity,Urine Slightly Cloudy (Clear); Glucose,Urine (UA) 500 mg/dL (Normal); Ketones,Urine Trace mg/dL (Negative); Leukocyte Esterase,Urine Large (Negative); Nitrite,Urine Negative (Negative); Protein,Urine >=300 mg/dL (Neg-Trace); Urobilinogen,Urine Normal (Normal)
[2021-12-03 18:53] LABS: Color,Urine DARK YELLOW (Yellow)
[2021-12-03 18:55] LABS: Amphetamine Screen,Urine Negative ng/mL (Cutoff=1000); Barbiturate Screen,Urine Negative ng/mL (Cutoff=200); Benzodiazepines Screen,Urine Positive ng/mL (Cutoff=200); Cannabinoid Screen,Urine Negative ng/mL (Cutoff = 50); Cocaine Screen,Urine Negative ng/mL (Cutoff= 300); Opiate Screen,Urine Negative ng/mL (Cutoff=300); Phencyclidine Screen,Urine Negative ng/mL (Cutoff=25)
[2021-12-03 18:56] LABS: RBC,Urine 15-30 per hpf (0-3)
[2021-12-03 18:57] LABS: Amorphous Sediment,Urine Few per hpf (None-Few); Bacteria,Urine Few per hpf (None-Few); Squamous Epithelial Cell,Urine Few per hpf (None-Few); WBC,Urine TNTC per hpf (0-3)
[2021-12-03] MEDS ORDERED: cefTRIAXone 1,000 MG in 0.9 % Sodium Chloride Mini Bag 100 ML IVPB ONE (19:31)
[2021-12-03] MEDS ORDERED: Naloxone 0.4 MG/ML INJ IVP PRN (20:40)
[2021-12-03] MEDS ORDERED: Dextrose Gel 15 GM/37.5 ML TUBE PO PRN ×2 (20:40)
[2021-12-03] MEDS ORDERED: D5% in Water 1,000 ML IVC PRN (20:40)
[2021-12-03] MEDS ORDERED: Acetaminophen 325 MG TABLET PO PRN (20:40)
[2021-12-03] MEDS ORDERED: Insulin DETEMIR 100 UNIT/ML X5UNITS SUBQ SCH (21:00)
[2021-12-03] MEDS: hydrALAZINE 25 MG TABLET PO SCH (22:13)
[2021-12-03] MEDS: carvediloL 25 MG TABLET PO SCH (22:13)
[2021-12-03] MEDS: cloNIDine HCL 0.1 MG TABLET PO SCH (22:13)
[2021-12-03] MEDS: Insulin LISPRO 300 UNITS/3 ML VIAL SUBQ SCH (22:16)
[2021-12-03] MEDS: Melatonin 3 MG TABLET PO PRN (22:47)
[2021-12-04 03:05] LABS: Albumin 3.3 g/dL (3.5-5.7); Albumin/Globulin Ratio 1.1 (1.1-2.2); Bilirubin,Total 0.4 mg/dL (0.3-1.0); Calcium 8.7 mg/dL (8.6-10.3); Chol/HDL Ratio 2.1 (0-4.9); Globulin 2.9 g/dL (2.4-3.5); Phosphorous 5.8 mg/dL (2.7-4.5); Potassium 3.8 mEq/L (3.5-5.1); Total Protein 6.2 g/dL (6.4-8.9)
[2021-12-04 03:26] LABS: Basophils % 0.3 %; Hematocrit 20.9 % (35.3-44.9); Hemoglobin 7.3 g/dL (11.5-15.4); Lymphocytes # 0.7 K/mcL (0.6-4.6); Lymphocytes % 22.1 %; Mean Corpuscular HGB Conc 34.9 g/dL (31.6-35.5); Mean Corpuscular Hemoglobin 34.4 pg (28.0-33.3); Mean Corpuscular Volume 98.6 fL (83.0-100.0); Mean Platelet Volume 8.7 fL (9.4-12.4); Monocytes # 0.5 K/mcL (0.0-1.3); Monocytes % 17.4 %; Red Blood Count 2.12 M/mcL (3.82-4.97); Red Cell Distribution Width 15.7 % (11.5-14.5)
[2021-12-04 03:29] LABS: Neutrophils # 1.8 K/mcL (1.6-8.9); Platelet Count 73 K/mcL (140-400); Segmented Neutrophils % 59.2 %
[2021-12-04] MEDS: *HR* Dextrose 50 % in Water (Syg) 50 ML SYRINGE IVP PRN ×3 (05:12→06:23)
[2021-12-04] MEDS ORDERED: 0.9 % Sodium Chloride 2,000 ML PRIME SCH (08:15)
[2021-12-04] MEDS ORDERED: *HR* Heparin 10,000 UNIT/10 ML VIAL IV PRN ×2 (08:15)
[2021-12-04] MEDS ORDERED: 0.9 % Sodium Chloride 250 ML IVC PRN (08:15)
[2021-12-04] MEDS: Insulin LISPRO 300 UNITS/3 ML VIAL SUBQ SCH ×4 (09:11→20:43)
[2021-12-04] MEDS: hydrALAZINE 25 MG TABLET PO SCH ×3 (09:16→20:47)
[2021-12-04] MEDS: carvediloL 25 MG TABLET PO SCH ×2 (09:16→20:47)
[2021-12-04] MEDS: cefTRIAXone 1,000 MG in Water for inj. (sterile) 10 ML IVP SCH (09:16)
[2021-12-04] MEDS: cloNIDine HCL 0.1 MG TABLET PO SCH ×3 (09:16→20:47)
[2021-12-04 14:12] LABS: % Iron Saturation 91 % (15-50); Ferritin > 1500 ng/mL (10-120); Iron 175 mcg/dL (50-170); Transferrin 138 mg/dL (203-362)
[2021-12-04] MEDS: amLODIPine 5 MG TABLET PO SCH (14:56)
[2021-12-04] MEDS: Darbepoetin 100 MCG/0.5 ML SYRINGE SQ SCH (14:57)
[2021-12-04] MEDS ORDERED: *HR* OxyCODONE/APAP 10/325 TABLET PO PRN (17:01)
[2021-12-04] MEDS ORDERED: Ondansetron ODT 4 MG TAB.RAPDIS SL PRN (17:01)
[2021-12-04] MEDS ORDERED: Oxycodone Myristate [Xtampza Er] 18 MG PO SCH (17:45)
[2021-12-04 20:01] LABS: Hepatitis B Surface Antibody 169.05 mIU/mL
[2021-12-04 20:12] LABS: Hepatitis B Surface Antigen Nonreactive (Nonreactive)
[2021-12-05 03:13] LABS: Basophils % 0.4 %; Hematocrit 21.7 % (35.3-44.9)
[2021-12-05 03:15] LABS: Eosinophils # 0.1 K/mcL (0.0-0.6); Eosinophils % 1.9 %; Hemoglobin 7.6 g/dL (11.5-15.4); Immature Platelets 1.1 % (1.1-6.1); Lymphocytes # 0.4 K/mcL (0.6-4.6); Lymphocytes % 17.1 %; Mean Corpuscular Hemoglobin 34.4 pg (28.0-33.3); Mean Corpuscular Volume 98.2 fL (83.0-100.0); Monocytes # 0.3 K/mcL (0.0-1.3); Monocytes % 13.2 %; Red Blood Count 2.21 M/mcL (3.82-4.97); Red Cell Distribution Width 15.5 % (11.5-14.5); Segmented Neutrophils % 67.4 %; White Blood Count 2.6 K/mcL (4.3-11.1)
[2021-12-05 03:38] LABS: Calcium 8.2 mg/dL (8.6-10.3); Magnesium 1.9 mg/dL (1.6-2.6); Phosphorous 3.9 mg/dL (2.7-4.5)
[2021-12-05 03:39] LABS: Neutrophils # 1.8 K/mcL (1.6-8.9); Platelet Count 84 K/mcL (140-400)
[2021-12-05] MEDS ORDERED: Acetaminophen 325 MG TABLET PO PRN (08:07)
[2021-12-05] MEDS ORDERED: *HR* OxyCODONE/APAP 10/325 TABLET PO PRN (08:08)
[2021-12-05] MEDS: predniSONE 5 MG TABLET PO SCH (08:15)
[2021-12-05] MEDS: Renal Vitamin 1 CAP CAPSULE PO SCH (08:15)
[2021-12-05] MEDS: Aspirin 81 MG TAB.CHEW PO SCH (08:15)
[2021-12-05] MEDS: cloNIDine HCL 0.1 MG TABLET PO SCH ×3 (08:15→21:23)
[2021-12-05] MEDS: carvediloL 25 MG TABLET PO SCH ×2 (08:15→21:22)
[2021-12-05] MEDS: hydrALAZINE 25 MG TABLET PO SCH ×3 (08:15→21:23)
[2021-12-05] MEDS: amLODIPine 5 MG TABLET PO SCH (08:15)
[2021-12-05] MEDS: polyethylene glycoL 3350 17 GM POWD.PACK PO SCH (08:16)
[2021-12-05] MEDS: cefTRIAXone 1,000 MG in Water for inj. (sterile) 10 ML IVP SCH (08:16)
[2021-12-05] MEDS: Insulin LISPRO 300 UNITS/3 ML VIAL SUBQ SCH ×4 (08:42→21:23)
[2021-12-05] MEDS ORDERED: Insulin DETEMIR 100 UNIT/ML X5UNITS SUBQ SCH (09:00)
[2021-12-05] MEDS ORDERED: Insulin LISPRO 300 UNITS/3 ML VIAL SUBQ ONE (09:36)
[2021-12-05] MEDS: Insulin DETEMIR 100 UNIT/ML X5UNITS SUBQ SCH (09:44)
[2021-12-05] MEDS: Melatonin 3 MG TABLET PO PRN (21:24)
[2021-12-06] MEDS: predniSONE 5 MG TABLET PO SCH ×2 (07:49→13:25)
[2021-12-06] MEDS: cloNIDine HCL 0.1 MG TABLET PO SCH ×4 (07:49→20:20)
[2021-12-06] MEDS: amLODIPine 5 MG TABLET PO SCH ×2 (07:49→13:25)
[2021-12-06] MEDS: Renal Vitamin 1 CAP CAPSULE PO SCH ×2 (07:49→13:22)
[2021-12-06] MEDS: Aspirin 81 MG TAB.CHEW PO SCH ×2 (07:49→13:25)
[2021-12-06] MEDS: carvediloL 25 MG TABLET PO SCH ×3 (07:49→20:20)
[2021-12-06] MEDS: hydrALAZINE 25 MG TABLET PO SCH ×4 (07:49→20:20)
[2021-12-06] MEDS: polyethylene glycoL 3350 17 GM POWD.PACK PO SCH ×2 (07:49→13:22)
[2021-12-06] MEDS: cefTRIAXone 1,000 MG in Water for inj. (sterile) 10 ML IVP SCH (07:50)
[2021-12-06] MEDS: Insulin LISPRO 300 UNITS/3 ML VIAL SUBQ SCH ×4 (07:53→20:21)
[2021-12-06] MEDS ORDERED: 0.9 % Sodium Chloride 250 ML IVC PRN (08:44)
[2021-12-06] MEDS ORDERED: *HR* Heparin 10,000 UNIT/10 ML VIAL IV PRN (08:50)
[2021-12-06] MEDS ORDERED: cefTRIAXone 1,000 MG in Water for inj. (sterile) 10 ML IVP ONE (09:00)
[2021-12-06 11:00] LABS: Calcium 8.3 mg/dL (8.6-10.3); Potassium 3.6 mEq/L (3.5-5.1)
[2021-12-06 11:31] LABS: Basophils % 0.2 %; Eosinophils % 0.4 %; Hematocrit 24.9 % (35.3-44.9); Hemoglobin 9.1 g/dL (11.5-15.4); Immature Granulocytes % 0.4 % (0-4); Lymphocytes # 0.4 K/mcL (0.6-4.6); Lymphocytes % 8.2 %; Mean Corpuscular HGB Conc 36.5 g/dL (31.6-35.5); Mean Corpuscular Hemoglobin 34.3 pg (28.0-33.3); Mean Platelet Volume 8.7 fL (9.4-12.4); Monocytes # 0.4 K/mcL (0.0-1.3); Monocytes % 9.1 %; Neutrophils # 3.8 K/mcL (1.6-8.9); Red Blood Count 2.65 M/mcL (3.82-4.97); Red Cell Distribution Width 14.9 % (11.5-14.5); Segmented Neutrophils % 81.7 %
[2021-12-06 11:32] LABS: Platelet Count 73 K/mcL (140-400); White Blood Count 4.6 K/mcL (4.3-11.1)
[2021-12-06 13:24] LABS: VBG HCO3 25 mEq/L (21-27); VBG PCO2 38 mmHg (41-51); VBG PH 7.43 pH Units (7.32-7.42); VBG PO2 100 mmHg (25-50)
[2021-12-06] MEDS: Insulin DETEMIR 100 UNIT/ML X5UNITS SUBQ SCH (13:29)
[2021-12-06] MEDS ORDERED: *HR* LORazepam 2 MG/ML VIAL IVP STA (13:49)
[2021-12-06] MEDS ORDERED: cefTRIAXone 1,000 MG in 0.9 % Sodium Chloride 10 ML IVP SCH (13:59)
[2021-12-06] MEDS: Doxycycline 100 MG in 0.9 % Sodium Chloride Mini Bag 100 ML IVPB SCH (15:04)
[2021-12-07] MEDS: Doxycycline 100 MG in 0.9 % Sodium Chloride Mini Bag 100 ML IVPB SCH (05:21)
[2021-12-07 06:01] LABS: Basophils % 0.3 %; Eosinophils % 0.3 %; Hematocrit 23.7 % (35.3-44.9); Hemoglobin 7.9 g/dL (11.5-15.4); Immature Granulocytes % 0.8 % (0-4); Lymphocytes # 0.5 K/mcL (0.6-4.6); Lymphocytes % 13.3 %; Mean Corpuscular HGB Conc 33.3 g/dL (31.6-35.5); Mean Corpuscular Hemoglobin 34.1 pg (28.0-33.3); Mean Corpuscular Volume 102.2 fL (83.0-100.0); Mean Platelet Volume 9.2 fL (9.4-12.4); Monocytes # 0.4 K/mcL (0.0-1.3); Monocytes % 10.5 %; Red Blood Count 2.32 M/mcL (3.82-4.97); Red Cell Distribution Width 15.4 % (11.5-14.5); Segmented Neutrophils % 74.8 %; White Blood Count 3.5 K/mcL (4.3-11.1)
[2021-12-07 06:07] LABS: Neutrophils # 2.6 K/mcL (1.6-8.9); Platelet Count 74 K/mcL (140-400)
[2021-12-07 06:59] LABS: VBG HCO3 13 mEq/L (21-27); VBG PCO2 30 mmHg (41-51); VBG PH 7.23 pH Units (7.32-7.42); VBG PO2 120 mmHg (25-50)
[2021-12-07 07:22] LABS: Platelet Estimate Decreased (Normal)
[2021-12-07 07:41] LABS: Calcium 8.7 mg/dL (8.6-10.3); Magnesium 2.1 mg/dL (1.6-2.6)
[2021-12-07] MEDS: Aspirin 81 MG TAB.CHEW PO SCH (08:00)
[2021-12-07] MEDS: Insulin LISPRO 300 UNITS/3 ML VIAL SUBQ SCH ×4 (08:02→20:54)
[2021-12-07] MEDS: Renal Vitamin 1 CAP CAPSULE PO SCH (08:03)
[2021-12-07] MEDS: amLODIPine 5 MG TABLET PO SCH (08:03)
[2021-12-07] MEDS: cloNIDine HCL 0.1 MG TABLET PO SCH (08:04)
[2021-12-07] MEDS: predniSONE 5 MG TABLET PO SCH (08:04)
[2021-12-07] MEDS: polyethylene glycoL 3350 17 GM POWD.PACK PO SCH (08:05)
[2021-12-07 08:55] LABS: Adenovirus Not Detected (Not Detect); Bordetella Pertussis Not Detected (Not Detect); Chlamydophila pneumoniae Not Detected (Not Detect); Coronavirus 229E Not Detected (Not Detect); Coronavirus HKU1 Not Detected (Not Detect); Coronavirus NL63 Not Detected (Not Detect); Coronavirus OC43 Not Detected (Not Detect); Human Metapneumovirus Not Detected (Not Detect); Human Rhinovirus/Enterovirus Not Detected (Not Detect); Influenza A Subtype 2009 H1 Not Detected (Not Detect); Influenza B Not Detected (Not Detect); Mycoplasma pneumoniae Not Detected (Not Detect); Parainfluenza Virus 1 Not Detected (Not Detect); Parainfluenza Virus 2 Not Detected (Not Detect); Parainfluenza Virus 3 Not Detected (Not Detect); Parainfluenza Virus 4 Not Detected (Not Detect); Respiratory Syncytial Virus Not Detected (Not Detect); SARS-CoV-2 Not Detected (Not Detect)
[2021-12-07] MEDS ORDERED: cefTRIAXone 1,000 MG in Water for inj. (sterile) 10 ML IVP ONE (09:00)
[2021-12-07] MEDS: Insulin DETEMIR 100 UNIT/ML X5UNITS SUBQ SCH (13:10)
[2021-12-07] MEDS: levETIRAcetam 250 MG TABLET PO SCH ×2 (14:00→20:52)
[2021-12-07] MEDS ORDERED: Ipratropium/Albuterol Neb 3 ML IH PRN (14:22)
[2021-12-07] MEDS: Piperacillin/Tazobactam 3.375 GM in 0.9 % Sodium Chloride Mini Bag 100 ML IVPB SCH (15:39)
[2021-12-07] MEDS ORDERED: Furosemide 40 MG/4 ML VIAL IVP STA (17:47)
[2021-12-07] MEDS: Ipratropium/Albuterol Neb 3 ML IH SCH ×2 (20:12→22:15)
[2021-12-07] MEDS ORDERED: QUEtiapine Fumarate 25 MG TABLET PO SCH (21:00)
[2021-12-07] MEDS ORDERED: *HR* LORazepam 2 MG/ML VIAL IVP ONE (22:46)
[2021-12-08] MEDS: Piperacillin/Tazobactam 3.375 GM in 0.9 % Sodium Chloride Mini Bag 100 ML IVPB SCH ×2 (03:23→13:45)
[2021-12-08 04:13] LABS: Hemoglobin 7.2 g/dL (11.5-15.4); Immature Granulocytes % 0.2 % (0-4)
[2021-12-08 04:15] LABS: Basophils % 0.2 %; Eosinophils % 0.8 %; Hematocrit 20.9 % (35.3-44.9); Immature Platelets 1.7 % (1.1-6.1); Lymphocytes # 0.4 K/mcL (0.6-4.6); Lymphocytes % 8.5 %; Mean Corpuscular HGB Conc 34.4 g/dL (31.6-35.5); Mean Corpuscular Hemoglobin 33.6 pg (28.0-33.3); Mean Corpuscular Volume 97.7 fL (83.0-100.0); Mean Platelet Volume 9.3 fL (9.4-12.4); Monocytes # 0.5 K/mcL (0.0-1.3); Monocytes % 10.3 %; Red Blood Count 2.14 M/mcL (3.82-4.97); Red Cell Distribution Width 15.3 % (11.5-14.5)
[2021-12-08] MEDS: Ipratropium/Albuterol Neb 3 ML IH SCH ×4 (04:17→21:33)
[2021-12-08 04:18] LABS: Platelet Count 87 K/mcL (140-400)
[2021-12-08] MEDS ORDERED: *HR* LORazepam 2 MG/ML VIAL IVP ONE (04:29)
[2021-12-08 04:37] LABS: Calcium 8.6 mg/dL (8.6-10.3); Potassium 4.2 mEq/L (3.5-5.1)
[2021-12-08] MEDS ORDERED: 0.9 % Sodium Chloride 250 ML IVC PRN (08:22)
[2021-12-08] MEDS ORDERED: *HR* Heparin 10,000 UNIT/10 ML VIAL IV PRN (08:22)
[2021-12-08] MEDS ORDERED: Insulin DETEMIR 100 UNIT/ML X5UNITS SUBQ SCH ×2 (09:00→09:30)
[2021-12-08 10:58] LABS: VBG HCO3 26 mEq/L (21-27); VBG PCO2 47 mmHg (41-51); VBG PH 7.36 pH Units (7.32-7.42); VBG PO2 134 mmHg (25-50)
[2021-12-08 11:41] LABS: Folate 5.6 ng/mL (3.0-16.0)
[2021-12-08] MEDS: Insulin LISPRO 300 UNITS/3 ML VIAL SUBQ SCH ×4 (11:46→22:06)
[2021-12-08] MEDS ORDERED: Iopamidol - 370 500 ML MLS IVP ONE (12:09)
[2021-12-08] MEDS: amLODIPine 5 MG TABLET PO SCH (13:43)
[2021-12-08] MEDS: Renal Vitamin 1 CAP CAPSULE PO SCH (13:43)
[2021-12-08] MEDS: hydrALAZINE 25 MG TABLET PO SCH ×3 (13:43→23:55)
[2021-12-08] MEDS: levETIRAcetam 250 MG TABLET PO SCH ×2 (13:43→22:03)
[2021-12-08] MEDS: predniSONE 5 MG TABLET PO SCH (13:44)
[2021-12-08] MEDS: Aspirin 81 MG TAB.CHEW PO SCH (13:44)
[2021-12-08] MEDS: polyethylene glycoL 3350 17 GM POWD.PACK PO SCH (13:47)
[2021-12-08] MEDS: carvediloL 25 MG TABLET PO SCH ×2 (13:51→22:04)
[2021-12-08 18:08] LABS: RBC,Pleural Fluid 3000 RBC/mcL
[2021-12-08 18:51] LABS: Appearance of Pleural Fl Clear (Clear)
[2021-12-08 18:56] LABS: Basophils,Pleural Fluid 0 %; Eosinophils,Pleural Fluid 0 %
[2021-12-08] MEDS: cloNIDine HCL 0.1 MG TABLET PO SCH (22:04)
[2021-12-09] MEDS: Acetaminophen 325 MG TABLET PO PRN ×2 (00:01→21:20)
[2021-12-09 04:02] LABS: Immature Granulocytes % 0.3 % (0-4); Mean Platelet Volume 9.4 fL (9.4-12.4)
[2021-12-09 04:04] LABS: Eosinophils % 0.3 %; Hematocrit 20.8 % (35.3-44.9); Immature Platelets 1.2 % (1.1-6.1); Lymphocytes # 0.4 K/mcL (0.6-4.6); Lymphocytes % 11.1 %; Mean Corpuscular HGB Conc 33.7 g/dL (31.6-35.5); Mean Corpuscular Hemoglobin 33.5 pg (28.0-33.3); Mean Corpuscular Volume 99.5 fL (83.0-100.0); Monocytes # 0.4 K/mcL (0.0-1.3); Monocytes % 12.7 %; Neutrophils # 2.4 K/mcL (1.6-8.9); Red Blood Count 2.09 M/mcL (3.82-4.97); Red Cell Distribution Width 14.6 % (11.5-14.5); Segmented Neutrophils % 75.6 %; White Blood Count 3.2 K/mcL (4.3-11.1)
[2021-12-09 04:09] LABS: Platelet Count 87 K/mcL (140-400)
[2021-12-09] MEDS: Ipratropium/Albuterol Neb 3 ML IH SCH ×4 (04:16→22:32)
[2021-12-09 04:30] LABS: Calcium 7.9 mg/dL (8.6-10.3); Potassium 3.7 mEq/L (3.5-5.1)
[2021-12-09] MEDS ORDERED: Insulin Human Regular 10 UNIT in 0.9 % Sodium Chloride 10 ML IV ONE (04:43)
[2021-12-09] MEDS: Piperacillin/Tazobactam 3.375 GM in 0.9 % Sodium Chloride Mini Bag 100 ML IVPB SCH ×2 (04:56→18:10)
[2021-12-09] MEDS: hydrALAZINE 25 MG TABLET PO SCH ×3 (09:12→21:14)
[2021-12-09] MEDS: predniSONE 5 MG TABLET PO SCH (09:12)
[2021-12-09] MEDS: levETIRAcetam 250 MG TABLET PO SCH ×2 (09:13→21:15)
[2021-12-09] MEDS: Renal Vitamin 1 CAP CAPSULE PO SCH (09:13)
[2021-12-09] MEDS: Aspirin 81 MG TAB.CHEW PO SCH (09:13)
[2021-12-09] MEDS: carvediloL 25 MG TABLET PO SCH ×2 (09:13→21:15)
[2021-12-09] MEDS: cloNIDine HCL 0.1 MG TABLET PO SCH ×3 (09:13→21:15)
[2021-12-09] MEDS: amLODIPine 5 MG TABLET PO SCH (09:13)
[2021-12-09] MEDS: Insulin LISPRO 300 UNITS/3 ML VIAL SUBQ SCH ×4 (09:14→21:05)
[2021-12-09] MEDS: Insulin DETEMIR 100 UNIT/ML X5UNITS SUBQ SCH (09:14)
[2021-12-09] MEDS: polyethylene glycoL 3350 17 GM POWD.PACK PO SCH (09:15)
[2021-12-10] MEDS: Piperacillin/Tazobactam 3.375 GM in 0.9 % Sodium Chloride Mini Bag 100 ML IVPB SCH ×2 (03:45→16:55)
[2021-12-10] MEDS: Ipratropium/Albuterol Neb 3 ML IH SCH ×4 (04:16→21:37)
[2021-12-10 04:24] LABS: Basophils % 0.3 %; Eosinophils % 0.9 %; Hematocrit 19.8 % (35.3-44.9); Hemoglobin 6.9 g/dL (11.5-15.4); Immature Granulocytes % 0.3 % (0-4); Immature Platelets 1.4 % (1.1-6.1); Lymphocytes # 0.5 K/mcL (0.6-4.6); Lymphocytes % 15.9 %; Mean Corpuscular HGB Conc 34.8 g/dL (31.6-35.5); Mean Corpuscular Volume 97.5 fL (83.0-100.0); Mean Platelet Volume 8.8 fL (9.4-12.4); Monocytes # 0.3 K/mcL (0.0-1.3); Monocytes % 10.4 %; Neutrophils # 2.4 K/mcL (1.6-8.9); Platelet Count 83 K/mcL (140-400); Red Blood Count 2.03 M/mcL (3.82-4.97); Red Cell Distribution Width 14.7 % (11.5-14.5); Segmented Neutrophils % 72.2 %; White Blood Count 3.3 K/mcL (4.3-11.1)
[2021-12-10 04:39] LABS: Calcium 8.1 mg/dL (8.6-10.3)
[2021-12-10] MEDS ORDERED: 0.9 % Sodium Chloride 250 ML IVC SCH (07:30)
[2021-12-10] MEDS: Insulin DETEMIR 100 UNIT/ML X5UNITS SUBQ SCH (08:28)
[2021-12-10] MEDS: hydrALAZINE 25 MG TABLET PO SCH ×3 (08:29→20:31)
[2021-12-10] MEDS: levETIRAcetam 250 MG TABLET PO SCH ×2 (08:29→20:31)
[2021-12-10] MEDS: Renal Vitamin 1 CAP CAPSULE PO SCH (08:29)
[2021-12-10] MEDS: carvediloL 25 MG TABLET PO SCH ×2 (08:29→20:31)
[2021-12-10] MEDS: Aspirin 81 MG TAB.CHEW PO SCH (08:29)
[2021-12-10] MEDS: amLODIPine 5 MG TABLET PO SCH (08:29)
[2021-12-10] MEDS: predniSONE 5 MG TABLET PO SCH (08:30)
[2021-12-10] MEDS: cloNIDine HCL 0.1 MG TABLET PO SCH ×3 (08:30→20:30)
[2021-12-10] MEDS: polyethylene glycoL 3350 17 GM POWD.PACK PO SCH (08:31)
[2021-12-10] MEDS: Insulin LISPRO 300 UNITS/3 ML VIAL SUBQ SCH ×4 (08:31→20:32)
[2021-12-10] MEDS ORDERED: Insulin DETEMIR 100 UNIT/ML X5UNITS SUBQ ONE (13:41)
[2021-12-10 14:26] LABS: Hematocrit 22.4 % (35.3-44.9); Hemoglobin 7.9 g/dL (11.5-15.4)
[2021-12-10] MEDS: Melatonin 3 MG TABLET PO PRN (20:39)
[2021-12-11] MEDS: Acetaminophen 325 MG TABLET PO PRN ×3 (01:10→20:32)
[2021-12-11] MEDS: Ipratropium/Albuterol Neb 3 ML IH SCH ×4 (03:55→22:27)
[2021-12-11] MEDS: Piperacillin/Tazobactam 3.375 GM in 0.9 % Sodium Chloride Mini Bag 100 ML IVPB SCH ×2 (04:02→16:15)
[2021-12-11 04:35] LABS: Hemoglobin 7.8 g/dL (11.5-15.4)
[2021-12-11 04:37] LABS: Basophils % 0.2 %; Eosinophils # 0.1 K/mcL (0.0-0.6); Eosinophils % 2.4 %; Hematocrit 22.1 % (35.3-44.9); Immature Granulocytes % 0.2 % (0-4); Immature Platelets 1.3 % (1.1-6.1); Lymphocytes # 0.7 K/mcL (0.6-4.6); Lymphocytes % 13.1 %; Mean Corpuscular HGB Conc 35.3 g/dL (31.6-35.5); Mean Corpuscular Hemoglobin 33.1 pg (28.0-33.3); Mean Corpuscular Volume 93.6 fL (83.0-100.0); Mean Platelet Volume 9.1 fL (9.4-12.4); Monocytes # 0.4 K/mcL (0.0-1.3); Monocytes % 8.7 %; Neutrophils # 3.8 K/mcL (1.6-8.9); Red Blood Count 2.36 M/mcL (3.82-4.97); Red Cell Distribution Width 15.8 % (11.5-14.5); Segmented Neutrophils % 75.4 %
[2021-12-11 04:39] LABS: Platelet Count 99 K/mcL (140-400)
[2021-12-11 04:56] LABS: Calcium 8.5 mg/dL (8.6-10.3); Potassium 3.8 mEq/L (3.5-5.1)
[2021-12-11] MEDS ORDERED: 0.9 % Sodium Chloride 250 ML IVC PRN (06:49)
[2021-12-11] MEDS ORDERED: 0.9 % Sodium Chloride 2,000 ML PRIME SCH (07:00)
[2021-12-11] MEDS: Insulin LISPRO 300 UNITS/3 ML VIAL SUBQ SCH ×4 (09:31→23:14)
[2021-12-11] MEDS: Insulin DETEMIR 100 UNIT/ML X5UNITS SUBQ SCH (09:32)
[2021-12-11] MEDS: levETIRAcetam 250 MG TABLET PO SCH ×2 (09:34→20:32)
[2021-12-11] MEDS: Renal Vitamin 1 CAP CAPSULE PO SCH (09:36)
[2021-12-11] MEDS: Aspirin 81 MG TAB.CHEW PO SCH (09:36)
[2021-12-11] MEDS: predniSONE 5 MG TABLET PO SCH (09:36)
[2021-12-11] MEDS: polyethylene glycoL 3350 17 GM POWD.PACK PO SCH (09:36)
[2021-12-11] MEDS: cloNIDine HCL 0.1 MG TABLET PO SCH ×3 (09:44→20:32)
[2021-12-11] MEDS: amLODIPine 5 MG TABLET PO SCH (09:45)
[2021-12-11] MEDS: hydrALAZINE 25 MG TABLET PO SCH ×3 (09:45→20:31)
[2021-12-11] MEDS: carvediloL 25 MG TABLET PO SCH ×2 (09:45→20:32)
[2021-12-11] MEDS: Darbepoetin 100 MCG/0.5 ML SYRINGE SQ SCH (11:07)
[2021-12-11] MEDS ORDERED: Fluconazole 100 MG TABLET PO SCH (12:30)
[2021-12-11] MEDS: Fluconazole 100 MG TABLET PO SCH (14:22)
[2021-12-11] MEDS: Melatonin 3 MG TABLET PO PRN (20:33)
[2021-12-12] MEDS: Ipratropium/Albuterol Neb 3 ML IH SCH ×3 (03:51→15:53)
[2021-12-12] MEDS: Piperacillin/Tazobactam 3.375 GM in 0.9 % Sodium Chloride Mini Bag 100 ML IVPB SCH ×2 (04:20→17:40)
[2021-12-12 05:29] LABS: Basophils % 0.3 %; Eosinophils # 0.1 K/mcL (0.0-0.6); Eosinophils % 1.6 %; Hematocrit 23.7 % (35.3-44.9); Hemoglobin 8.2 g/dL (11.5-15.4); Immature Granulocytes % 0.5 % (0-4); Immature Platelets 1.3 % (1.1-6.1); Lymphocytes # 0.6 K/mcL (0.6-4.6); Lymphocytes % 15.9 %; Mean Corpuscular HGB Conc 34.6 g/dL (31.6-35.5); Mean Corpuscular Hemoglobin 33.2 pg (28.0-33.3); Mean Platelet Volume 8.6 fL (9.4-12.4); Monocytes # 0.4 K/mcL (0.0-1.3); Monocytes % 10.6 %; Neutrophils # 2.7 K/mcL (1.6-8.9); Red Blood Count 2.47 M/mcL (3.82-4.97); Red Cell Distribution Width 15.8 % (11.5-14.5); Segmented Neutrophils % 71.1 %; White Blood Count 3.8 K/mcL (4.3-11.1)
[2021-12-12 05:45] LABS: Calcium 8.3 mg/dL (8.6-10.3); Potassium 4.2 mEq/L (3.5-5.1)
[2021-12-12 05:54] LABS: Platelet Count 87 K/mcL (140-400)
[2021-12-12] MEDS ORDERED: Vancomycin 500 MG in 0.9 % Sodium Chloride Mini Bag 100 ML IVPB ONE (06:00)
[2021-12-12] MEDS: levETIRAcetam 250 MG TABLET PO SCH (08:08)
[2021-12-12] MEDS: cloNIDine HCL 0.1 MG TABLET PO SCH ×2 (08:08→14:23)
[2021-12-12] MEDS: Aspirin 81 MG TAB.CHEW PO SCH (08:08)
[2021-12-12] MEDS: Renal Vitamin 1 CAP CAPSULE PO SCH (08:08)
[2021-12-12] MEDS: polyethylene glycoL 3350 17 GM POWD.PACK PO SCH (08:08)
[2021-12-12] MEDS: carvediloL 25 MG TABLET PO SCH (08:08)
[2021-12-12] MEDS: predniSONE 5 MG TABLET PO SCH (08:08)
[2021-12-12] MEDS: hydrALAZINE 25 MG TABLET PO SCH ×2 (08:09→14:23)
[2021-12-12] MEDS: amLODIPine 5 MG TABLET PO SCH (08:09)
[2021-12-12] MEDS: Insulin LISPRO 300 UNITS/3 ML VIAL SUBQ SCH ×3 (08:30→17:40)
[2021-12-12] MEDS: Insulin DETEMIR 100 UNIT/ML X5UNITS SUBQ SCH (08:36)
[2021-12-12 08:50] LABS: Fluid Source for Albumin R PLEURAL
[2021-12-12 12:06] VITALS: BP 179/53; PULSE 77; TEMP 98.3
[2021-12-12] MEDS: Fluconazole 100 MG TABLET PO SCH (14:22)
[2021-12-12] MEDS ORDERED: *HR* LORazepam 0.5 MG TABLET PO ONE (15:25)
[2021-12-12 15:55] VITALS: O2SAT 95
[2021-12-18] MEDS ORDERED: Ergocalciferol (VIT D2) 50,000 UNIT (1.25MG) CAP PO SCH (11:24)
== END 2021-12-12 20:15 | disposition short-term general hospital (02) | DRG 100 ==
LOC: 2ANU 14:24 → EMEROOARM 14:24 → SUATTDRO 20:09 → 2ANU 21:31 → SUATTDRO 12-05 12:42
PROVIDERS: ADMIT Student in an Organized Health Care Education/Training Program; ATTEND Internal Medicine